=== PATIENT | male | born 1940 | race Caucasian/White ===

== ENCOUNTER → 2016-07-01 | Day surgery (SDC) | payer OTHER ==
[~2016-07-01] VITALS: Ht 180.3 cm; Wt 105.0 kg
[~2016-07-01] MED LIST: ADVIN25/60 INH; ALBU18002 INH; AMLO-110 PO; ASPCH81X PO; ATOR-54 PO; ATROPINE SULFATE 0.1 MG/ML 5ML SYR IV PRN; CALC-20 PO; CYCL0.052 OP; ENAL10TA88 PO; EpHEDrine SULFATE INJ 50 MG/ML AMP IV PRN; FENO134C2 PO; FENTANYL CITRATE INJ 50 MCG/1 ML 2 ML VIAL IV PRN; FINA5TAB PO; FLUT0.15 NAE; GLUC15002 PO; LEVO25TA PO; LIDOCAINE HCL 2% 2 ML VIAL (20MG/ML) ONE; MAGN400T6 PO; METO25TA56 PO; MISC1CAP58 PO; MULT-506 PO; OLAN-111 PO; ONDANSETRON INJ 2 MG/ML 2 ML VIAL IV PRN; POTA20TA16 PO; PROPOFOL IV EMULSION 10 MG/ML 20 ML VIAL IV ONE; TAMS0.4C38 PO; TORS20TA2 PO; WARF5TAB90 PO
[2016-07-01 07:00] VITALS: BP 130/84; PULSE 74; TEMP 36.5; O2SAT 94; Ht 180.3 cm; Wt 105.0 kg
[2016-07-01 07:35] VITALS: BP 144/83; PULSE 87; O2SAT 97
[2016-07-01 07:40] VITALS: BP 125/79; PULSE 73; O2SAT 95
[2016-07-01 07:45] VITALS: BP 125/75; PULSE 63; O2SAT 96
--- NOTE | 2016-07-01 07:56 | History & Physical Bridge Note ---
H&P Re-Evaluation Bridge Note: I have examined the patient, reviewed the History & Physical and in the interval since the performance of the History & Physical I have noted the following changes of clinical significance: No changes noted
--- NOTE | 2016-07-01 08:05 | Discharge Instructions ---
Discharge Instructions Procedure Procedure Date: July 01, 2016. Reason for Visit: W/Anes Persistent Afib Kopinski To Do. Discharge Discharge Date: July 01, 2016. Discharge Diagnosis: Atrial fibrillation s/p elective external cardioversion. Last Recorded Wt (Kilograms): 105 Anesthesia Post Anesthesia Instructions: If you have had General Anesthesia or IV Sedation: * Do not drive today. * Resume driving when surgeon permits. * Do not make important decisions or sign legal documents today. * Call surgeon for: 1. Temperature elevations greater than 101 degrees F. 2. Uncontrollable pain. 3. Excessive bleeding. 4. Persistent nausea and vomiting. 5. Medication intolerance (nausea, vomiting or rash). * For nausea and vomiting use only clear liquids such as: tea, soda, bouillon until nausea subsides, then gradually increase diet as tolerated. * If you have any concerns or questions, call your surgeon's office. If physician is unavailable and it is an emergency, call 911 or go to the nearest emergency room. Instructions Activity Recommendations: limitations as noted below Return to School/Work: with the following limitations Recommended Home Diet: resume previous diet Allergies: Coded Allergies: Acetaminophen (Unverified Allergy, Unknown, unknown, 07/01/16) Niacin (Unverified Allergy, Unknown, flushed feeling, 07/01/16) Oxycodone (Unverified Allergy, Unknown, unknown, 07/01/16) Propoxyphene (Unverified Allergy, Unknown, unknown, 07/01/16) Provider Instructions ACTIVITY RECOMMENDATIONS: Resume activities as tolerated with no limitations unless specified. _x_ No lifting over _10_ pounds for 24 hours. _x_ Do not engage in vigorous exercise, sexual activity, or sports for 24 hours. _x_ Do not drive or operate any motorized equipment for 24 hours. _x_ You may return to work/school tomorrow. Follow Up Follow-up with: Dr. Quinones as scheduled. Vimal Gomez Recommendations: Call your doctor if: * Temperature above 101 degrees * Pain not relieved by pain medicine ordered * There is increased drainage or redness from any incision * You have any unanswered questions or concerns. Your Doctors Instructions noted above were prepared by provider Dylan Quinones. Patient Signature Section: Patient Instructions Signature Page Cristhian May Patient (or Guardian) Signature/Date: I have read and understand the instructions given to me by my caregivers. Caregiver/RN/Doctor Signature/Date: The above-named patient and/or guardian has received patient instructions on this date. + Original Patient Signature Page (only) stays with chart. Please make copy for patient.
--- NOTE | 2016-07-01 08:46 | Anesthesiology Progress Note ---
Anesthesia Post Op Note Date & Time July 01, 2016 at 08:46 Vital Signs Pain Intensity: 0 Vital Signs Past 12 Hours Date Time Temp Pulse Resp B/P Pulse Ox O2 Delivery O2 Flow Rate FiO2 07/01/16 08:30 60 18 131/88 93 Room Air 07/01/16 08:15 60 18 123/78 93 Room Air 07/01/16 08:05 66 18 125/72 94 Nasal Cannula 2 07/01/16 07:55 68 18 120/67 93 Nasal Cannula 2 07/01/16 07:45 63 18 125/75 96 Nasal Cannula 2 07/01/16 07:45 73 18 121/79 95 Nasal Cannula 2 07/01/16 07:40 73 18 125/79 95 Nasal Cannula 4 07/01/16 07:39 07/01/16 07:35 87 18 144/83 97 Nasal Cannula 4 07/01/16 07:00 36.5 74 18 130/84 94 Room Air Notes Mental Status: alert / awake / arousable, participated in evaluation Pt Amnestic to Procedure: Yes Nausea / Vomiting: adequately controlled Pain: adequately controlled Airway Patency, RR, SpO2: stable & adequate BP & HR: stable & adequate Hydration State: stable & adequate Anesthetic Complications: no major complications apparent
--- NOTE | 2016-07-01 08:59 | CARDIOVERSION ---
DATE OF OPERATION: 07/01/2016 CARDIOVERSION REPORT DATE OF PROCEDURE: 07/01/2016. PROCEDURE: External direct current cardioversion. INDICATION: Paroxysmal atrial fibrillation. PROCEDURE: The patient was brought to the [facility] in a fasting state. Conscious sedation was provided by the anesthesia service. Please see their report for details. The defibrillator pads were placed in the anterior and posterior position. The defibrillator was synced to the QRS complex. When adequate sedation was achieved, the defibrillator was charged to 200 joules. A single 200 joule biphasic shock was delivered. The patient was successfully converted from atrial fibrillation to sinus rhythm with a first degree AV block. No complications. The patient tolerated the procedure well. CONCLUSION: Successful external direct current cardioversion from atrial fibrillation to sinus rhythm with 200 joule biphasic shock. No complications. I attest to the content of the Intraoperative Record and any orders documented therein. Any exceptio ns are noted below.
[2016-07-01 09:45] VITALS: BP 139/58; PULSE 72; O2SAT 96
== END | disposition home or self-care (01) ==
LOC: C.CATH 06:16
PROVIDERS: ATTEND Internal Medicine Cardiovascular Disease
DX: I48.0 Paroxysmal atrial fibrillation (principal); I12.9 Hypertensive chronic kidney disease with stage 1 through stage 4 chronic kidney disease, or unspecified chronic kidney disease; N18.3 Chronic kidney disease, stage 3 (moderate); I50.9 Heart failure, unspecified; J44.9 Chronic obstructive pulmonary disease, unspecified; J45.30 Mild persistent asthma, uncomplicated; F32.9 Major depressive disorder, single episode, unspecified; E03.9 Hypothyroidism, unspecified; E78.5 Hyperlipidemia, unspecified; Z87.891 Personal history of nicotine dependence; Z79.899 Other long term (current) drug therapy; Z96.641 Presence of right artificial hip joint; Z90.89 Acquired absence of other organs; Z98.890 Other specified postprocedural states; Z68.32 Body mass index [BMI] 32.0-32.9, adult; Z85.46 Personal history of malignant neoplasm of prostate

== ENCOUNTER 2022-08-19 06:18 | Observation (INO) ==
--- NOTE | 2022-08-03 09:35 | PAT Medication Instructions ---
Medication Instructions Date of Service August 03, 2022 Home Medications albuterol sulfate 0.63 mg/3 mL solution for nebulization 0.63 mg inhalation BID albuterol sulfate 90 mcg/actuation aerosol inhaler 2 puff inhalation BID apixaban 2.5 mg tablet (Eliquis) 2.5 mg PO BID aspirin 81 mg capsule 81 mg PO QAM atorvastatin 20 mg tablet (Lipitor) 20 mg PO HS calcium carbonate 600 mg-vitamin D3 10 mcg (400 unit) tablet (Calcium 600 + D(3)) 1 tab PO QAM cyclosporine 0.05 % eye drops in a dropperette (Restasis) 1 drp ophthalmic (eye) Q12H PRN Dry Eye(S) diltiazem HCl 180 mg capsule,extended release 24 hr 180 mg PO QAM escitalopram oxalate 20 mg tablet (Lexapro) 20 mg PO QAM fluticasone 250 mcg-salmeterol 50 mcg/dose blistr powdr for inhalation (Wixela Inhub) 1 inh inhalation BID guaifenesin 600 mg tablet, extended release 12 hr (Mucinex) 600 mg PO BID levothyroxine 75 mcg tablet 75 mcg PO QAM lutein 20 mg tablet 20 mg PO HS magnesium 200 mg tablet 400 mg PO HS metoprolol tartrate 25 mg tablet 25 mg PO BID mirtazapine 30 mg tablet (Remeron) 30 mg PO HS multivitamin 1 tab PO QAM olanzapine 5 mg tablet (Zyprexa) 5 mg PO HS potassium chloride 10 mEq capsule,extended release 10 meq PO QAM ropinirole 1 mg tablet 1 mg PO HS spironolactone 25 mg tablet 12.5 mg PO UD tamsulosin 0.4 mg capsule 0.4 mg PO QAM torsemide 40 mg tablet 40 mg PO QAM ASK your prescriber and surgeon apixaban 2.5 mg tablet (Eliquis) 2.5 mg PO BID (in order to get spinal anesthesia- will need to hold Eliquis/apixaban at least 72 hours prior to surgery) mirtazapine 30 mg tablet (Remeron) 30 mg PO HS olanzapine 5 mg tablet (Zyprexa) 5 mg PO HS STOP taking 2 weeks before surgery lutein 20 mg tablet 20 mg PO HS DO NOT take the morning of surgery calcium carbonate 600 mg-vitamin D3 10 mcg (400 unit) tablet (Calcium 600 + D(3)) 1 tab PO QAM guaifenesin 600 mg tablet, extended release 12 hr (Mucinex) 600 mg PO BID multivitamin 1 tab PO QAM potassium chloride 10 mEq capsule,extended release 10 meq PO QAM spironolactone 25 mg tablet 12.5 mg PO UD torsemide 40 mg tablet 40 mg PO QAM Take morning of surgery With a small sip of water, OTHERWISE NOTHING TO EAT OR DRINK AFTER MIDNIGHT: albuterol sulfate 0.63 mg/3 mL solution for nebulization 0.63 mg inhalation BID albuterol sulfate 90 mcg/actuation aerosol inhaler 2 puff inhalation BID aspirin 81 mg capsule 81 mg PO QAM (unless surgeon directed otherwise) cyclosporine 0.05 % eye drops in a dropperette (Restasis) 1 drp ophthalmic (eye) Q12H PRN Dry Eye(S) (if needed) diltiazem HCl 180 mg capsule,extended release 24 hr 180 mg PO QAM escitalopram oxalate 20 mg tablet (Lexapro) 20 mg PO QAM fluticasone 250 mcg-salmeterol 50 mcg/dose blistr powdr for inhalation (Wixela Inhub) 1 inh inhalation BID levothyroxine 75 mcg tablet 75 mcg PO QAM metoprolol tartrate 25 mg tablet 25 mg PO BID tamsulosin 0.4 mg capsule 0.4 mg PO QAM Take evening before surgery albuterol sulfate 0.63 mg/3 mL solution for nebulization 0.63 mg inhalation BID albuterol sulfate 90 mcg/actuation aerosol inhaler 2 puff inhalation BID atorvastatin 20 mg tablet (Lipitor) 20 mg PO HS cyclosporine 0.05 % eye drops in a dropperette (Restasis) 1 drp ophthalmic (eye) Q12H PRN Dry Eye(S) (if needed) fluticasone 250 mcg-salmeterol 50 mcg/dose blistr powdr for inhalation (Wixela Inhub) 1 inh inhalation BID guaifenesin 600 mg tablet, extended release 12 hr (Mucinex) 600 mg PO BID magnesium 200 mg tablet 400 mg PO HS metoprolol tartrate 25 mg tablet 25 mg PO BID ropinirole 1 mg tablet 1 mg PO HS Other Notes If you have any questions please call us at [phone] or [phone] or [phone] or [phone]
--- NOTE | 2022-08-05 10:53 | Anesthesiology Consultation ---
Date of Service August 05, 2022 Assessment & Plan (1) Encounter for pre-operative examination: Chart Review Chart Review: Pending: Refer to Additional Notes / Consult section (pending 08/06/22 ECHO, 08/13/22 stress test, cardio response re: Eliquis instructions, response from PCP re: pulmonary status ) and Patient seen in Pre Admission Testing - Awaiting ECHO (08/06/22) and stress test 08/13/22 ([facility]) - Awaiting cardio phone note response inquiring if Eliquis can be held three days prior to surgery - Please send optimization form to PCP re: pulmonary status - need response - Pt is NOT an OPJ candidate due to age and comorbidities Per PAT appt on 08/05/22, patient denies any recent travel or large group activities. Pt is vaccinated for Covid. Will leave to surgeon's discretion if preop Covid testing needed. Educated on importance of using Covid precautions one week prior to surgery Pt seen by cardiology 06/09/22= Patient seen for cardiology follow-up evaluation. And need for new hipfollowing with Ortho. Chest tightness only when having anxiety attack. Stable SALGADO. Edema fairly well controlled as of late. Diastolic congestive heart failurecompensated. Chronic atrial fibrillation with controlled rates via recent device interrogation. Prescribed reduced dose of Eliquis due to age and renal dysfunction. Currently without significant bleeding issues or concerns. 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 Aortic stenosismild. Significant pulmonary disease. OSAon BiPAP with supplemental oxygen. Continue current cardiac medications as prescribed. Refer for resting echocardiogram to follow degree of aortic stenosis and for preoperative evaluation. Preoperative Lexiscan nuclear stress test. Continue medical therapy. Patient is at least moderate risk of adverse outcome for noncardiac surgery. If testing is acceptable would advise the following: Continue metoprolol, diltiazem, and aspirin without interruption. Hold furosemide and spironolactone morning of the procedure, resuming postoperatively as hemodynamics permit. Suggest hold x2 days for Eliquis with an estimated cr eatinine clearance of 55.5 mL/min. Standard pacemaker precautions. History Surgery Operation Date: 08/19/22 12:40 Proposed Procedures p Left Total Hip Arthroplasty - Cristhian Witt MD Height/Weight Height: 5 ft 11 in Weight: 98.2 kg Allergies Allergy/AdvReac Type Severity Reaction Status Date / Time oxycodone Allergy Unknown Flushing Verified 08/03/22 08:33 propoxyphene Allergy Unknown Flushing Verified 08/03/22 08:33 niacin AdvReac Unknown flushed Verified 08/03/17 11:27 feeling Medications Home Medications Medication Instructions Recorded Confirmed Last Taken albuterol sulfate 0.63 mg/3 mL 0.63 mg inhalation BID 08/03/22 08/03/22 Unknown solution for nebulization albuterol sulfate 90 mcg/actuation 2 puff inhalation BID 08/03/22 08/03/22 Unknown aerosol inhaler apixaban 2.5 mg tablet (Eliquis) 2.5 mg PO BID 08/03/22 08/03/22 Unknown aspirin 81 mg capsule 81 mg PO QAM 08/03/22 08/03/22 Unknown atorvastatin 20 mg tablet (Lipitor) 20 mg PO HS 08/03/22 08/03/22 Unknown calcium carbonate 600 mg-vitamin 1 tab PO QAM 08/03/22 08/03/22 Unknown D3 10 mcg (400 unit) tablet (Calcium 600 + D(3)) cyclosporine 0.05 % eye drops in a 1 drp ophthalmic (eye) Q12H PRN 08/03/22 08/03/22 Unknown dropperette (Restasis) Dry Eye(S) diltiazem HCl 180 mg 180 mg PO QAM 08/03/22 08/03/22 Unknown capsule,extended release 24 hr escitalopram oxalate 20 mg tablet 20 mg PO QAM 08/03/22 08/03/22 Unknown (Lexapro) fluticasone 250 mcg-salmeterol 50 1 inh inhalation BID 08/03/22 08/03/22 Unknown mcg/dose blistr powdr for inhalation (Wixela Inhub) guaifenesin 600 mg tablet, 600 mg PO BID 08/03/22 08/03/22 Unknown extended release 12 hr (Mucinex) levothyroxine 75 mcg tablet 75 mcg PO QAM 08/03/22 08/03/22 Unknown lutein 20 mg tablet 20 mg PO HS 08/03/22 08/03/22 Unknown magnesium 200 mg tablet 400 mg PO HS 08/03/22 08/03/22 Unknown metoprolol tartrate 25 mg tablet 25 mg PO BID 08/03/22 08/03/22 Unknown mirtazapine 30 mg tablet (Remeron) 30 mg PO HS 08/03/22 08/03/22 Unknown multivitamin 1 tab PO QAM 08/03/22 08/03/22 Unknown olanzapine 5 mg tablet (Zyprexa) 5 mg PO HS 08/03/22 08/03/22 Unknown potassium chloride 10 mEq 10 meq PO QAM 08/03/22 08/03/22 Unknown capsule,extended release ropinirole 1 mg tablet 1 mg PO HS 08/03/22 08/03/22 Unknown spironolactone 25 mg tablet 12.5 mg PO UD 08/03/22 08/03/22 Unknown tamsulosin 0.4 mg capsule 0.4 mg PO QAM 08/03/22 08/03/22 Unknown torsemide 40 mg tablet 40 mg PO QAM 08/03/22 08/03/22 Unknown Past Medical History Medical History A-fib follows w/ [facility] cardio, [place] [facility] on Eliquis Anxiety and depression Aortic stenosis Mild per 2021 ECHO Asthmatic bronchitis Breathing stable - chronic (hx of smoker) Chronic kidney disease (CKD), stage III (moderate) Diastolic heart failure Compensated per cardio records HTN (hypertension) Hx of pyoderma gangrenosum BLE Hyperlipidemia Hypothyroidism On anticoagulant therapy eliquis Pacemaker medtronic, last checked 05/13/22, remotely Prostate cancer Around 2013- s/p brachytherapy - Lupron q 3 months Pulmonary disease restrictive lung disease, hypoxic respiratory failure, hypercapnic respiratory failure , bronchiectasis, 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, 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 per records Restless leg syndrome Sleep apnea bipap; 3 lpm hs Tachy-noni syndrome s/p pacemaker placement 2018 Exercise / Class Metabolic Activity III < 4 Walking/Shop/Light housework (inactive due to hip pain- ambulates around house with walker- usually in wheelchair in public ; prior to hip issues- mild SALGADO with flat surface ambulation - no chest pain ) Past Family History Family History Other No family history of adverse response to anesthesia Past Surgical History Surgical History History of surgery Rectal fissure repair Hx of colonoscopy Hx of tonsillectomy Hx of total hip arthroplasty RIGHT S/P placement of cardiac pacemaker Past Anesthesia History No Hx of Anesthesia Complications and No Family Hx of Anesthesia Complications History of PONV No Hx of PONV and No Hx of Motion Sickness Social History Smoking Status: Former smoker tobacco type: cigarettes Do You Dip or Chew Tobacco: No Smoking End Date: QUIT 1978 Hx Alcohol Use: No Hx Substance Use: No substance use type: does not use Review of Systems Patient denies chest pain, shortness of breath at rest, reflux, cough, wheezing, palpitations. No hx of seizures, stroke, CT. No hx of blood clots or blood transfusions Physical Exam Vital Signs VITALS BP 109/70 P 78 TEMP 98.7 SP02 90% on RA (monitor at home -usually between 90-94%- no oxygen needed during the day per patient) RESP 16 Constitutional no acute distress ENMT Mouth: no TMJ clicking Thyromental Distance: > or= 3.5 Finger Breadths (3.5) Mallampati Class: III Full dentures on top ; partial dentures on the bottom Neck + limited neck extension Respiratory normal respiratory effort; no respiratory distress Auscultation: + diminished lung sounds (throughout); no wheezes Trace course breath sounds throughout- otherwise CTA Cardiovascular Rate/Rhythm: regular rate and regular rhythm Heart Sounds: no murmur Vessels: no carotid bruit Heart sounds diminished throughout Musculoskeletal Spine: no pain with cervical ROM Extremities: extremities normal to inspection Psychiatric Orientation: alert Lab Results Anesthesia Preop Results Results Anesthesia Widget: WBC 9.90 K/ul (4.8-10.8) 08/05/22 Hgb 13.8 g/dl (14.0-18.0) L 08/05/22 Hct 41.9 % (42.0-52.0) L 08/05/22 Plt 187 K/uL (130-400) 08/05/22 Na 137 mmol/L (136-145) 08/05/22 K 4.0 mmol/L (3.5-5.1) 08/05/22 Cl 97 mmol/L (98-107) L 08/05/22 CO2 36 mmol/L (21-32) H 08/05/22 BUN 15 mg/dl (6-23) 08/05/22 Creat 1.10 mg/dl (0.6-1.4) 08/05/22 Glucose Level 90 mg/dl (70-99(Fasting)) 08/05/22 PT 11.7 Seconds (9.0-12.0) 08/05/22 PTT 28.7 Seconds (21.0-31.0) 08/05/22 INR 1.1 (0.9-1.1) 08/05/22 HA1c 6.1 % (4.5-5.6) H 08/05/22 Blood Type A Positive 08/05/22 Antibody Screen NEGATIVE 08/05/22 Testing Electrocardiogram Date: 08/05/22 Atrial fibrillation with frequent ventricular paced complexes at 65bpm RBBB When compared to EKG from August 03, 2017- electronic ventricular pacemaker is now present, vent rate has decreased by 50bpm per cardio Chest X-Ray Date: 08/05/22 FINDINGS: PA and lateral chest radiographs are compared to study dated 08/04/2018. A single lead cardiac pacemaker is unchanged in position. The heart is enlarged and noting atherosclerotic calcification of the thoracic aorta. The pulmonary vasculature is noncongested. Subpleural reticulation and chronic interstitial thickening is unchanged. There is chronic elevation of the right hemidiaphragm. Bibasilar interstitial changes/opacities are similar to previous and likely represent changes of chronic lung disease. No superimposed airspace consolidation or pleural effusion is identified. There is no pneumothorax. The s keletal structures are osteopenic. The bony thorax appears intact. Degenerative change and hyperkyphosis is noted in the thoracic spine. IMPRESSION: 1. Cardiomegaly and cardiac pacemaker without mammographic evidence of congestive failure. 2. Findings of chronic lung disease are similar to previous. No acute cardiopulmonary abnormality is seen. Other Testing Pacemaker check 05/12/22= Medtronic device. Implanted 08/03/17. Battery has 10.33 years left. Three episodes consistent or suggestive of ventricular tachycardia. Mode: VVIR. Total VS 71.4%. Total PAYMENT MANAGER 26.8%. COVID-19 Risk Screen Screening Information COVID-19 Screen Date: 08/05/22 Exposure 21 Days Family/Household +COVID Last 21 Days: No Exposure 10 Days Any COVID Exposure Last 10 Days: No Symptoms Last 10 Days Experienced COVID Sx Last 10 Days: No + COVID 0-90 Days COVID + in Last 0-90 Days: No Risk Plan COVID Risk Plan: No Risk Identified Patient Education COVID Preop Screening Education Complete: Yes
[~2022-08-19 06:18] MED LIST changes: +ACETAMINOPHEN 500 MG TAB PO SCH; -ADVIN25/60 INH; -ALBU18002 INH; -AMLO-110 PO; -ASPCH81X PO; -ATOR-54 PO; -ATROPINE SULFATE 0.1 MG/ML 5ML SYR IV PRN; +BUPIVACAINE LIPOSOME/PF 266 MG, BUPIVACAINE/EPINEPHRINE 50 ML, SODIUM CHLORIDE 0.9% PF ... INFIL SCH; -CALC-20 PO; -CYCL0.052 OP; +CeleBREX 200 MG CAP PO SCH; -ENAL10TA88 PO; -EpHEDrine SULFATE INJ 50 MG/ML AMP IV PRN; +FAMOTIDINE 20 MG TAB PO SCH; -FENO134C2 PO; -FENTANYL CITRATE INJ 50 MCG/1 ML 2 ML VIAL IV PRN; -FINA5TAB PO; -FLUT0.15 NAE; -GLUC15002 PO; -LEVO25TA PO; -LIDOCAINE HCL 2% 2 ML VIAL (20MG/ML) ONE; +LR 500ML BOLUS, THEN 15ML/HR IV SCH; +LR 60ML/HR IV SCH; -MAGN400T6 PO; -METO25TA56 PO; +METOCLOPRAMIDE HCL 10 MG TABLET PO SCH; -MISC1CAP58 PO; -MULT-506 PO; -OLAN-111 PO; -ONDANSETRON INJ 2 MG/ML 2 ML VIAL IV PRN; -POTA20TA16 PO; -PROPOFOL IV EMULSION 10 MG/ML 20 ML VIAL IV ONE; -TAMS0.4C38 PO; -TORS20TA2 PO; +TRANEXAMIC ACID 1,000 MG **IV Pre-op IV SCH; -WARF5TAB90 PO; +ceFAZolin 2000MG 2,000 MG/15 ML SYR IV SCH; +dexAMETHasone**PF** 10 MG/ML VIAL IV SCH
[2022-08-19] MEDS ORDERED: BUPIVACAINE 0.5 % 5 MG/1 ML PF 10ML VIAL ONE (06:30)
[2022-08-19] MEDS ORDERED: PROPOFOL IV EMULSION 10 MG/ML 20 ML VIAL IV ONE (06:39)
[2022-08-19] MEDS ORDERED: MIDAZOLAM HCL 1 MG/ML 2ML VIAL ONE (06:39)
[2022-08-19] MEDS ORDERED: LIDOCAINE 2% 2 ML VIAL/AMP(20MG/ML) INFIL ONE (06:39)
[2022-08-19] MEDS ORDERED: fentaNYL citrate PF 100 MCG/2 ML VIAL ONE (06:39)
[2022-08-19] MEDS ORDERED: ONDANSETRON INJ 2 MG/ML 2 ML VIAL ONE (06:40)
--- NOTE | 2022-08-19 06:55 | History & Physical Bridge Note ---
Date of Service August 19, 2022 History & Physical Bridge Note I have examined the patient, reviewed the History & Physical and in the interval since the performance of the History & Physical I have noted the following changes of clinical significance: no changes noted
[2022-08-19] MEDS ORDERED: BUPIVACAINE/EPINEPHRINE 0.5% MPF 1:200,000 30 ML VIAL ONE (08:53)
[2022-08-19] MEDS ORDERED: KETOROLAC 30 MG/ML VIAL ONE (09:55)
[2022-08-19] MEDS ORDERED: ONDANSETRON INJ 2 MG/ML 2 ML VIAL IV PRN ×2 (10:01→13:34)
[2022-08-19] MEDS ORDERED: fentaNYL citrate PF 100 MCG/2 ML VIAL IV PRN (10:01)
[2022-08-19] MEDS ORDERED: ATROPINE SULFATE 0.1 MG/ML 10ML SYR IV PRN (10:01)
[2022-08-19] MEDS ORDERED: ePHEDrine sulfate 50 MG/ML AMP IV PRN (10:01)
[2022-08-19] MEDS ORDERED: GELATIN SPONGE SZ 100 ONE (10:05)
[2022-08-19] MEDS ORDERED: THROMBIN FOR SOLN 20000 UNIT KIT ONE (10:05)
--- NOTE | 2022-08-19 11:08 | Operative Report ---
PG Post Operative Report Pre & Post Diagnosis Operation Date: 08/19/22 08:40 Pre-Op Diagnosis: Left Hip Degenerative Joint Disease Post-Op Diagnosis: Left Hip Degenerative Joint Disease I identified the patient and participated in the time-out.: Yes Procedure Operation Date: 08/19/22 08:40 Actual Procedures p Left Total Hip Arthroplasty(Left) - Cristhian Witt MD Surgeon Cristhian Witt MD Bush Regenerator John Cota PA-C Estimated Blood Loss 250 Findings Consistent with Post-Op Diagnosis Operative findings were advanced left hip DJD. He had what looked like necrosis of his femoral head. He had chronic dark pigmentation of the bone and synovium. Moderate-sized hip joint effusion. Very stiff hip preoperatively. Specimens Left femoral head sent for pathology Anesthesia Type Spinal MAC Complications none Disposition Accompanied Patient To Recovery: No Indications Patient is an 81-year-old gentleman who has a several year history of increasing left hip pain and discomfort is become markedly debilitating. He failed all conservative measures. X-rays showed severe hip arthritis. He was medically optimized and elected to proceed with total hip arthroplasty. He does have multiple medical comorbidities and the risks were explained to him and he elected to proceed. Description of Procedure Operative implants consist of: 1 Biomet G7 size 54 mm acetabular shell. 2. [place] hole eliminator. 3. 6.5 cancellous acetabular screws 1 at 35 mm in length and 1 of 30 mm length. 4. Highly cross-linked polyethylene liner with a 54 mm outer diameter, 40 mm inner diameter with a cook placed inferior and posterior. 5. DePuy [place] size 12 KLA femoral stem. 6. +5/40 mm ceramic articular ball. The patient was taken to the operating, identified, and placed on the operating table supine position. All contractors were appropriately padded. IV antibiotics tried by anesthesia team. A spinal anesthetic had been implemented holding area. The patient was then placed in the right lateral decubitus position. An axillary roll was placed. [place] hip positioner was used for positioning. The left hip and leg were then prepped and draped in usual sterile fashion. A posterolateral approach to the left hip was then performed through a curvilinear incision centered over the greater trochanter. Sharp dissection was carried through subcutaneous tissue down to level the IT band gluteal fascia the IT band gluteal fascia was incised longitudinally in line with skin incision. The underlying greater bursa was excised. The piriformis and external rotators along with the posterior hip joint capsule were then released from the posterior aspect the hip as a single layer. Great care was taken throughout the procedure protect the sciatic nerve at all times. The hip was internally rotated and dislocated. A femoral neck osteotomy cut was made with a Final Cut about 12 mm above the lesser trochanter. Femoral head was removed and sent for pathology. The femur was retracted anteriorly. I did have to do some releases of the capsule in order to retract this anteriorly as his hip was very stiff. We did run into 1 bleeder in the inferior aspect of the acetabulum which took some time to cauterized. I did place him a gel foam with thrombin down there to assist in hemostasis. The acetabular labrum was excised. The pulmonary fat was excised. The acetabulum was then reamed beginning with size 43 and progressing up to a 53. I reamed a little bit with a 54 reamer and then placed a 54 mm cup in about 20 degrees of anteversion and 40 degrees lateral opening. It fixed with two 6.5 cancellous acetabular screws. Trial liner was placed. Attention drawn the femur. The proximal femur was entered with a [employer] cutter followed by canal finder. I then broached beginning with size 8 and progressed up to 12. Got excellent fit at a 12. I then trialed the hip. The +5 articular ball seem to provide appropriate stability and soft tissue tension and equal leg lengths. In order to maximize his stability we elect to place a 40 head with a cook placed inferior and posterior. I elect to place these implants. Nupathe all trial implants were removed. Eliminator was placed. Highly cross-linked polyethylene liner with a cook placed inferior and posterior was placed. A DePuy KLA size 12 femoral stem was impacted in position. A +5/40 mm ceramic articular ball was placed. Hip was located once again found to be stable. Attention drawn toward closing. The wound was irrigated coconuts with pulsatile lavage solution. I did inject locally with 60 cc of half percent worker with epinephrine. The posterior hip joint capsule was then repaired to the posterior aspect of the trochanter through drill holes in the trochanter with #2 Tycron suture. The IT band gluteal fascia then closed in 1 PDS suture running fashion for subcutaneous tissue then closed in 2 layers the deep layer #1 Vicryl suture subcutaneous tissues with 2-0 Dexon suture in a buried interrupted fashion. Skin was closed skin cynthia. Leg was then cleaned and dried and sterile dressed with Xeroform, 4 x 4's, ABD pad, foam tape was applied. Patient was then transferred to the recovery room in stable condition. The patient tolerated procedure well and there were no complications. John Cota, my physician regulatory assistant, was present for the entire procedure. His assistance was essential and required for appropriate patient positioning, prepping and draping, surgical exposure, performing the technical details of the operation, placement the implants, closure of the wound, and placement of the sterile bandage. I attest to the content of the Intraoperative Record and any orders documented therein. Any exceptions are noted below.
--- NOTE | 2022-08-19 11:27 | XRay Report ---
SINGLE VIEW PELVIS; SINGLE VIEW LEFT HIP CLINICAL HISTORY: Postoperative examination. FINDINGS: An AP portable view of the hips and lower pelvis with a crosstable lateral portable view of the left hip are compared to study dated 07/31/2022. A bipolar left hip arthroplasty is in near-anato yolanda alignment. At least 2 cortical lag screw transfix the acetabular cup. No acute fracture is identi fied. There are expected postoperative changes overlying the left hip including skin clips, subcutane ous gas, and soft tissue swelling. A right hip arthroplasty is unchanged in position. Brachytherapy i mplants are seen in the pelvis. There is atherosclerotic calcification of the femoral arteries. IMPRESSION: Expected postoperative findings status post left hip arthroplasty. No acute fracture is s een. ACT 112: Negative or not required by law. Electronically signed by: Paramjit Hitchcock M.D. 08/19/2022 11:24 AM
--- NOTE | 2022-08-19 11:41 | Anesthesiology Progress Note ---
Date of Service August 19, 2022 Anesthesia Post Procedure Vital Signs Vital Signs: Temp Pulse Pulse Resp BP Pulse Ox O2 Del Method 08/19/22 11:35 36.5 C 79 19 95/57 L 95 Nasal Cannula 08/19/22 11:25 81 20 104/70 92 Nasal Cannula 08/19/22 11:15 80 19 107/65 93 Nasal Cannula 08/19/22 11:05 80 24 110/63 99 Oxymask 08/19/22 10:58 36.5 C 84 19 81/51 L 97 Oxymask 08/19/22 07:02 Nasal Cannula 08/19/22 07:02 36.5 C 80 20 151/94 H 91 Nasal Cannula O2 Flow Rate 08/19/22 11:35 3 08/19/22 11:25 4 08/19/22 11:15 4 08/19/22 11:05 12 08/19/22 10:58 12 08/19/22 07:02 2 08/19/22 07:02 2 Transfer of Care Handoff Completed per policy Notes Mental Status: alert / awake / arousable Patient Amnestic to Procedure: Yes Nausea / Vomiting: adequately controlled Pain: adequately controlled Airway Patency, RR, SpO2: stable & adequate BP & HR: stable & adequate Hydration State: stable & adequate Neuraxial Anesthesia: was administered and sensory block is resolving Anesthetic Complications: no major complications apparent and Pt Satisfied with anesthetic care
[2022-08-19] MEDS ORDERED: traMADol HCL 50 MG TABLET PO PRN (13:34)
[2022-08-19] MEDS ORDERED: METOCLOPRAMIDE HCL INJ 5 MG/ML 2 ML VIAL IV PRN (13:34)
[2022-08-19] MEDS ORDERED: HYDROmorphone INJ 0.5 MG/0.5 ML SYR IV PRN (13:34)
[2022-08-19] MEDS ORDERED: bisacodyL 10 MG SUPP PR PRN (13:34)
[2022-08-19] MEDS ORDERED: NALOXONE HCL 0.4 MG/1 ML VIAL/CARP IV PRN (13:34)
[2022-08-19] MEDS ORDERED: ALUMINUM/MAGNESIUM SUSP 30 ML UDC PO PRN (13:34)
[2022-08-19] MEDS ORDERED: ARTIFICIAL TEARS OP PRN (13:51)
[2022-08-19] MEDS ORDERED: ACETAMINOPHEN 500 MG TAB PO SCH (14:00)
[2022-08-19] MEDS: KETOROLAC TROMETHAMINE 15 MG/ML VIAL IV SCH ×2 (15:10→20:12)
[2022-08-19] MEDS: SODIUM CHLORIDE 0.9% 1000ML 1,000 ML IV SCH (15:10)
[2022-08-19] MEDS: ACETAMINOPHEN 500 MG TAB PO SCH ×2 (15:12→20:15)
--- NOTE | 2022-08-19 16:45 | Cardiology Consultation ---
Date of Consultation August 19, 2022 Assessment & Plan (1) Acute on chronic heart failure with preserved ejection fraction (HFpEF): (2) Chronic atrial fibrillation: (3) Aortic stenosis, mild: Plan 81-year-old patient's status post hip replacement. No procedural complications reported. Currently hemodynamically stable. Will place torsemide and Aldactone on hold pending a.m. examination. Restart apixaban per discretion of the operating surgeon. Continue other cardiovascular medications including low-dose aspirin, diltiazem, and metoprolol tartrate as ordered. History of Present Illness Reason for Consultation: Postoperative cardiovascular care Requesting Physician: Dr. Witt Attending Physician: Cristhian Witt MD History of Present Illness 81-year-old male admitted for elective hip replacement. Cardiac consultation requested for routine postoperative care. 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 Preoperative Lexiscan nuclear stress test negative for inducible ischemia. Echocardiogram demonstrating preserved LV systolic function with mild aortic valve stenosis (stable). Patient seen and examined at the bedside. Somnolent post anesthesia. Arousable to verbal stimuli. Denies chest pain or shortness of breath. No discomfort currently. Offers no concerns/complaints. Allergies Allergy/AdvReac Type Severity Reaction Status Date / Time oxycodone Allergy Unknown Flushing Verified 08/03/22 08:33 propoxyphene Allergy Unknown Flushing Verified 08/03/22 08:33 niacin AdvReac Unknown flushed Verified 08/03/17 11:27 feeling Home Medications Medication Instructions Recorded Confirmed Type albuterol sulfate 0.63 mg/3 mL 0.63 mg inhalation BID 08/03/22 08/19/22 History solution for nebulization albuterol sulfate 90 mcg/actuation 2 puff inhalation BID 08/03/22 08/19/22 History aerosol inhaler apixaban 2.5 mg tablet (Eliquis) 2.5 mg PO BID 08/03/22 08/19/22 History aspirin 81 mg capsule 81 mg PO QAM 08/03/22 08/19/22 History atorvastatin 20 mg tablet (Lipitor) 20 mg PO HS 08/03/22 08/19/22 History calcium carbonate 600 mg-vitamin 1 tab PO QAM 08/03/22 08/19/22 History D3 10 mcg (400 unit) tablet (Calcium 600 + D(3)) cyclosporine 0.05 % eye drops in a 1 drp ophthalmic (eye) Q12H PRN 08/03/22 08/19/22 History dropperette (Restasis) Dry Eye(S) diltiazem HCl 180 mg 180 mg PO QAM 08/03/22 08/19/22 History capsule,extended release 24 hr escitalopram oxalate 20 mg tablet 20 mg PO QAM 08/03/22 08/19/22 History (Lexapro) fluticasone 250 mcg-salmeterol 50 1 inh inhalation BID 08/03/22 08/19/22 History mcg/dose blistr powdr for inhalation (Wixela Inhub) guaifenesin 600 mg tablet, 600 mg PO BID 08/03/22 08/19/22 History extended release 12 hr (Mucinex) levothyroxine 75 mcg tablet 75 mcg PO QAM 08/03/22 08/19/22 History lutein 20 mg tablet 20 mg PO HS 08/03/22 08/19/22 History magnesium 200 mg tablet 400 mg PO HS 08/03/22 08/19/22 History metoprolol tartrate 25 mg tablet 25 mg PO BID 08/03/22 08/19/22 History mirtazapine 30 mg tablet (Remeron) 30 mg PO HS 08/03/22 08/19/22 History multivitamin 1 tab PO QAM 08/03/22 08/19/22 History olanzapine 5 mg tablet (Zyprexa) 5 mg PO HS 08/03/22 08/03/22 History potassium chloride 10 mEq 10 meq PO QAM 08/03/22 08/19/22 History capsule,extended release ropinirole 1 mg tablet 1 mg PO HS 08/03/22 08/19/22 History spironolactone 25 mg tablet 12.5 mg PO UD 08/03/22 08/19/22 History tamsulosin 0.4 mg capsule 0.4 mg PO QAM 08/03/22 08/19/22 History torsemide 40 mg tablet 40 mg PO QAM 08/03/22 08/19/22 History acetaminophen 500 mg tablet 1,000 mg PO TID pain 30 days #180 08/17/22 08/19/22 Rx (Tylenol Extra Strength) tabs ondansetron 4 mg disintegrating 4 mg PO Q8 PRN nausea #20 tabs 08/17/22 08/19/22 Rx tablet sennosides 8.6 mg tablet (Senokot) 8.6 mg PO BID prevent constipation 08/17/22 08/19/22 Rx 14 days #28 tabs tramadol 50 mg tablet 50 - 100 mg PO Q6 PRN pain #40 tabs 08/17/22 08/19/22 Rx Patient History Medical History (Updated 08/19/22 @ 16:43 by Dylan Quinones DO) A-fib follows w/ [facility], [place] on Eliquis Anxiety and depression Aortic stenosis Mild per 2021 ECHO Asthmatic bronchitis Breathing stable - chronic (hx of smoker) Chronic kidney disease (CKD), stage III (moderate) Diastolic heart failure Compensated per cardio records HTN (hypertension) Hx of pyoderma gangrenosum BLE Hyperlipidemia Hypothyroidism On anticoagulant therapy eliquis Pacemaker medtronic, last checked 05/13/22, remotely Prostate cancer Around 2013- s/p brachytherapy - Lupron q 3 months Pulmonary disease restrictive lung disease, hypoxic respiratory failure, hypercapnic respiratory failure , bronchiectasis, 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, 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 per records Restless leg syndrome Sleep apnea bipap; 3 lpm hs Tachy-noni syndrome s/p pacemaker placement 2018 Surgical History (Updated 08/20/22 @ 07:02 by Cristhian Witt MD) History of surgery Rectal fissure repair Hx of colonoscopy Hx of tonsillectomy Hx of total hip arthroplasty RIGHT S/P placement of cardiac pacemaker Status post left hip replacement Family History Other No family history of adverse response to anesthesia Social History Smoking Status: Former smoker Smoking End Date: QUIT 1978; Second Hand Exposure: No; Do You Dip or Chew Tobacco: No; Tobacco Cessation Education Requested by Patient: No Hx Alcohol Use: No Hx Substance Use: No Preferred Language: Gabonese Communication Ability: Effective Radio Adjuster Required: No Beliefs That Will Affect Care: None Current Living Situation: Spouse Other Information That Helps Us Care for You: No Feels Safe at Home: Yes Safety Concerns: Feels Safe At This Time Assistive Devices: BiPap, Cane, Oxygen - Continuous and Walker Review of Systems Review of Systems: All systems reviewed & are unremarkable except as noted in Subjective Physical Exam Constitutional: well nourished; no acute distress Respiratory: normal respiratory effort; no respiratory distress and no labored breathing Auscultation: no rales, no rhonchi and no wheezes Cardiovascular: Rate/Rhythm: + irregularly irregular Heart Sounds: normal S1, normal S2 and + murmur (2/6 systolic ejection murmur heard best at the right second IC) Vessels: radial pulses present; no JVD and no carotid bruit Extremities: no edema Gastrointestinal (Abdomen): Inspection/Auscultation: abdomen normal to inspection and normal bowel sounds; abdomen not distended Percussion/Palpation: abdomen soft; abdomen nontender and no guarding Results & Data Vital Signs (Past 12 Hours) Vital Signs Temp Pulse Pulse Pulse Resp BP Pulse Ox 08/19/22 15:18 36.6 C 87 14 122/80 95 08/19/22 13:34 08/19/22 14:33 36.6 C 86 18 132/76 95 08/19/22 14:01 37.1 C 86 18 114/78 96 08/19/22 13:30 36.6 C 88 18 124/78 96 08/19/22 13:15 87 19 116/76 95 08/19/22 13:05 81 24 117/91 96 08/19/22 12:55 36.5 C 77 23 112/73 96 08/19/22 12:45 73 17 116/72 99 08/19/22 12:35 78 18 110/71 98 08/19/22 12:25 73 18 113/63 99 08/19/22 12:20 87 21 114/75 98 08/19/22 12:15 81 21 102/65 94 08/19/22 12:10 78 17 108/60 94 08/19/22 12:08 73 17 91 08/19/22 12:05 77 17 92/59 L 95 08/19/22 11:55 75 18 103/62 94 08/19/22 10:55 75 18 103/62 94 08/19/22 11:45 75 20 98/60 L 95 08/19/22 11:35 36.5 C 79 19 95/57 L 95 08/19/22 11:25 81 20 104/70 92 08/19/22 11:15 80 19 107/65 93 08/19/22 11:05 80 24 110/63 99 08/19/22 10:58 36.5 C 84 19 81/51 L 97 08/19/22 07:02 08/19/22 07:02 36.5 C 80 20 151/94 H 91 O2 Del Method O2 Flow Rate FiO2 08/19/22 15:18 Nasal Cannula 3 08/19/22 13:34 Nasal Cannula 3 08/19/22 14:33 Nasal Cannula 3 08/19/22 14:01 Nasal Cannula 3 08/19/22 13:30 Nasal Cannula 3 08/19/22 13:15 Nasal Cannula 3 08/19/22 13:05 Nasal Cannula 3 08/19/22 12:55 Nasal Cannula 3 08/19/22 12:45 BiPAP 35 08/19/22 12:35 BiPAP 35 08/19/22 12:25 BiPAP 35 08/19/22 12:20 BiPAP 35 08/19/22 12:15 BiPAP 35 08/19/22 12:10 BiPAP 35 08/19/22 12:08 35 08/19/22 12:05 Nasal Cannula 3 08/19/22 11:55 Nasal Cannula 3 08/19/22 10:55 Nasal Cannula 3 08/19/22 11:45 Nasal Cannula 3 08/19/22 11:35 Nasal Cannula 3 08/19/22 11:25 Nasal Cannula 4 08/19/22 11:15 Nasal Cannula 4 08/19/22 11:05 Oxymask 12 08/19/22 10:58 Oxymask 12 08/19/22 07:02 Nasal Cannula 2 08/19/22 07:02 Nasal Cannula 2 Laboratory Results Intake and Output 08/19/22 08/19/22 08/19/22 06:59 14:59 22:59 Intake Total 1300 / 1300 Output Total 250 / 250 Balance 1050 / 1050 Intake: IV 100 / 100 Lactated Ringer's 1,000 ml @ 15 0 / 0 mls/hr IV .Q24H IRMA Rx#: [id number] Tranexamic Acid / 0.7% NaCl 1, 100 / 100 000 mg In 100 ml @ 600 mls/hr IV TODAY@0600 IRMA Rx#:[id number] IV Perioperative 1200 / 1200 Output: Estimated Blood Loss 250 / 250 Other: Weight 99.053 kg Weight Measurement Method Standing Scale Patient Weight 08/20/22 06:59 Weight 99.053 kg
[2022-08-19] MEDS ORDERED: TRANEXAMIC ACID / 0.7% NACL 1,000 MG/100 ML BAG IV SCH (17:00)
[2022-08-19] MEDS: SPIRONOLACTONE 12.5 MG TAB PO SCH (18:03)
[2022-08-19] MEDS: ASCORBIC ACID 500 MG TAB PO SCH (18:04)
[2022-08-19] MEDS: ceFAZolin 2000MG 2,000 MG/15 ML SYR IV SCH (18:47)
[2022-08-19] MEDS: ALBUTEROL HFA 8 GM INHALER INH SCH (19:21)
[2022-08-19] MEDS: ALBUTEROL 0.083% NEBU SOLN 3 ML VIAL INH SCH (19:25)
[2022-08-19] MEDS: rOPINIRole HCL 1 MG TABLET PO SCH (20:13)
[2022-08-19] MEDS: DOCUSATE SODIUM 100 MG CAP PO SCH (20:14)
[2022-08-19] MEDS: SENNA 8.6 MG TAB PO SCH (20:14)
[2022-08-19] MEDS: METOPROLOL TARTRATE 25 MG TAB PO SCH (20:15)
[2022-08-19] MEDS: OLANZapine 5 MG TABLET PO SCH (20:16)
[2022-08-19] MEDS: MAGNESIUM OXIDE 400 MG TAB PO SCH (20:16)
[2022-08-19] MEDS: MIRTAZAPINE TAB 15 MG TAB PO SCH (20:16)
[2022-08-19] MEDS: guaiFENesin 600 MG TABCR PO SCH (20:17)
[2022-08-19] MEDS: ATORVASTATIN 20 MG TAB PO SCH (20:17)
[2022-08-19] MEDS ORDERED: SENNA 8.6 MG TAB PO SCH (21:00)
[2022-08-19] MEDS ORDERED: NON-FORMULARY MEDICATION (Lutein 20 mg Tablet) PO SCH (21:00)
[2022-08-20] MEDS: ceFAZolin 2000MG 2,000 MG/15 ML SYR IV SCH (00:28)
[2022-08-20] MEDS: KETOROLAC TROMETHAMINE 15 MG/ML VIAL IV SCH ×2 (00:29→08:00)
[2022-08-20] MEDS: SODIUM CHLORIDE 0.9% 1000ML 1,000 ML IV SCH (00:36)
[2022-08-20] MEDS: LEVOTHYROXINE SODIUM 75 MCG TABLET PO SCH (05:52)
--- NOTE | 2022-08-20 07:03 | Orthopedic Progress Note ---
Date of Service August 20, 2022 Assessment & Plan (1) Status post left hip replacement: Patient is doing relatively well postop day 1 from left hip replacement. Medically appears stable. Pain controlled. Hip dislocated. He is neurologically intact. 1. DVT prophylax include Katherine lechuga SCDs and back on his Eliquis today. 2. Pain control. Doing well with current pain regimen. 3. PT OT. Weight-bear as tolerated. Left total hip protocol. 4. Disposition he is hoping to go home. We will see how he does in therapy. Subjective . 81-year-old gentleman with multiple medical comorbidities now postop day 1 from a left hip replacement. He is doing well this morning. Awake alert and oriented. Denies any significant pain. No chest pain or shortness of breath. Review of Systems All systems reviewed & are unremarkable except as noted in HPI & below. Physical Exam . Physical exam shows a pleasant elderly male. He is lying in bed looks pretty co mfortable this morning. Awake alert and oriented. Examination left hip reveals the dressing clean dry and intact. Leg lengths are equal. Some mild edema. Can dorsiflex and plantarflex his foot appropriately. Respiratory normal respiratory effort, lungs clear to auscultation Cardiovascular RRR, no murmur, no edema Gastrointestinal (Abdomen) normal bowel sounds, soft, nontender, no hepatosplenomegaly Results & Data Results & Data Laboratory Results . Labs are pending Diagnostic Findings . PG Care Time/CCT Total # of Minutes Spent Total Time Spent with Patient: Total time spent is greater than 50% in coordination of care (as documented) at patient's floor/unit and/or counseling patient: Coding Level of Care Code 42980 Post Operative Follow-Up Diagnoses Status post left hip replacement Z96.642
[2022-08-20] MEDS: ALBUTEROL HFA 8 GM INHALER INH SCH ×2 (07:17→19:29)
[2022-08-20] MEDS: ALBUTEROL 0.083% NEBU SOLN 3 ML VIAL INH SCH ×2 (07:18→19:29)
[2022-08-20 07:30] LABS: Basophils # (auto) 0.02 K/uL (0-0.2); Basophils % (auto) 0.1 %; Hematocrit (blood only) 35.6 % (42.0-52.0); Hemoglobin 11.9 g/dl (14.0-18.0); Immature Granulocytes # (auto) 0.11 K/uL (0.01-0.20); Immature Granulocytes % (auto) 0.7 %; Lymphocytes # (auto) 0.89 K/uL (1.2-3.4); Mean Corpuscular Hemoglobin 31.3 pg (25.0-34.0); Mean Corpuscular Hgb Conc 33.4 g/dL (32.0-36.0); Mean Corpuscular Volume 93.7 fL (80.0-100.0); Mean Platelet Volume 11.1 fL (9.4-12.4); Monocytes # (auto) 0.85 K/uL (0.11-0.59); Monocytes % (auto) 5.7 %; Neutrophils # (auto) 12.93 K/uL (1.40-6.50); Neutrophils % (auto) 87.5 %; Platelet Count 190 K/uL (130-400); RDW Coefficient of Variation 14.6 % (11.5-14.5); RDW Standard Deviation 50.2 fL (36.4-46.3)
[2022-08-20 07:42] LABS: BUN Creatinine Ratio 20.4 (10-20); Calcium 8.9 mg/dl (8.6-10.3); Creatinine Clr Calc Pharmacy 50.7 ml/min; Est GFR (African American) 55.7 ml/min; Potassium 4.5 mmol/L (3.5-5.1)
[2022-08-20] MEDS ORDERED: dexAMETHasone 10 MG in SYRINGE 0 ML IV SCH (08:00)
[2022-08-20] MEDS: ASCORBIC ACID 500 MG TAB PO SCH ×2 (08:04→17:29)
[2022-08-20] MEDS: FLUTICASONE/VILANTEROL 200/25MCG 14 PUFFS/INHALER INH SCH (08:05)
[2022-08-20] MEDS: CALCIUM 600MG + VIT D 400 IU TAB PO SCH (08:38)
[2022-08-20] MEDS: CEROVITE ADV FORMULA TAB PO SCH (08:39)
[2022-08-20] MEDS: ASPIRIN 81 MG ECTAB PO SCH (08:39)
[2022-08-20] MEDS: TORSEMIDE 20 MG TAB PO SCH (08:39)
[2022-08-20] MEDS: ESCITALOPRAM OXALATE 20 MG TAB PO SCH (08:39)
[2022-08-20] MEDS: TAMSULOSIN HCL 0.4 MG CAP PO SCH (08:40)
[2022-08-20] MEDS: dilTIAZem HCL 180 MG CAPCR PO SCH (08:40)
[2022-08-20] MEDS: ACETAMINOPHEN 500 MG TAB PO SCH ×3 (08:41→20:49)
[2022-08-20] MEDS: METOPROLOL TARTRATE 25 MG TAB PO SCH ×2 (08:41→20:49)
[2022-08-20] MEDS: DOCUSATE SODIUM 100 MG CAP PO SCH ×2 (08:41→20:50)
[2022-08-20] MEDS: guaiFENesin 600 MG TABCR PO SCH ×2 (08:42→20:49)
[2022-08-20] MEDS: POTASSIUM CHLORIDE 10 MEQ TABCR PO SCH (08:43)
[2022-08-20] MEDS ORDERED: NON-FORMULARY MEDICATION (Multivitamin Tablet) PO SCH (09:00)
[2022-08-20] MEDS: APIXABAN 2.5 MG TAB PO SCH ×2 (11:26→20:50)
[2022-08-20] MEDS ORDERED: APIXABAN 2.5 MG TAB PO SCH (11:30)
[2022-08-20] MEDS ORDERED: FUROSEMIDE INJ 20 MG/2 ML VIAL IV ONE (14:17)
--- NOTE | 2022-08-20 14:17 | Cardiology Progress Note ---
Date of Service August 20, 2022 Assessment & Plan (1) Chronic heart failure with preserved ejection fraction: (2) Chronic atrial fibrillation: (3) Aortic stenosis, mild: Plan 81-year-old patient's status post hip replacement POD #1. Fluid balance positive more than 2 L. Crackles noted on exam. Recommend dose of IV furosemide, 20 mg. Continue current cardiovascular medications include torsemide, Aldactone, apixaban, low-dose aspirin, diltiazem, metoprolol tartrate. Admission and Anticipated Discharge Date Admission Date: August 19, 2022 Subjective Patient seen examined the bedside. More alert today. Poor historian. Denies chest pain or shortness of breath. Outpatient meds resumed. Review of Systems Review of Systems: All systems reviewed & are unremarkable except as noted in Subjective Physical Exam Constitutional: well nourished; no acute distress Respiratory: normal respiratory effort; no respiratory distress and no labored breathing Auscultation: + crackles (Bases bilateral); no rhonchi and no wheezes Cardiovascular: Rate/Rhythm: + irregularly irregular Heart Sounds: normal S1, normal S2 and + murmur (2/6 systolic ejection murmur heard best at the right second IC) Vessels: radial pulses present; no JVD and no carotid bruit Extremities: no edema Gastrointestinal (Abdomen): Inspection/Auscultation: abdomen normal to inspection and normal bowel sounds; abdomen not distended Percussion/Palpation: abdomen soft; abdomen nontender and no guarding Results & Data Vital Signs (Past 12 Hours) Vital Signs Temp Pulse Resp BP BP Pulse Ox O2 Del Method 08/20/22 11:39 36.8 C 87 18 118/60 94 Nasal Cannula 08/20/22 07:48 Nasal Cannula 08/20/22 07:36 36.7 C 101 H 16 140/89 91 Nasal Cannula 08/20/22 07:18 111 H 16 94 Nasal Cannula 08/20/22 05:54 152/98 H 08/20/22 04:01 36.4 C L 96 H 18 179/91 H 94 Nasal Cannula O2 Flow Rate 08/20/22 11:39 2 08/20/22 07:48 2 08/20/22 07:36 08/20/22 07:18 2 08/20/22 05:54 08/20/22 04:01 2 Laboratory Results CBC 08/20/22 Range/Units 06:42 WBC 14.80 H (4.8-10.8) K/ul RBC 3.80 L (4.70-6.10) M/uL Hgb 11.9 L (14.0-18.0) g/dl Hct 35.6 L (42.0-52.0) % Plt Count 190 (130-400) K/uL Neut # (Auto) 12.93 H (1.40-6.50) K/uL Lymph # (Auto) 0.89 L (1.2-3.4) K/uL Will # (Auto) 0.85 H (0.11-0.59) K/uL Eos # (Auto) 0.00 (0-0.50) K/uL Baso # (Auto) 0.02 (0-0.2) K/uL Comprehensive Metabolic Panel 08/20/22 Range/Units 06:42 Sodium 139 (136-145) mmol/L Potassium 4.5 (3.5-5.1) mmol/L Chloride 99 (98-107) mmol/L Carbon Dioxide 35 H (21-32) mmol/L BUN 28 H (6-23) mg/dl Creatinine 1.37 (0.6-1.4) mg/dl Glucose 130 H (70-99(Fasting)) mg/dl Calcium 8.9 (8.6-10.3) mg/dl Intake and Output 08/19/22 08/20/22 08/20/22 22:59 06:59 14:59 Intake Total 100 / 2400 1000 / 2400 460 / 460 Output Total 400 / 850 200 / 850 275 / 275 Balance -300 / 1550 800 / 1550 185 / 185 Intake: IV 100 / 1200 1000 / 1200 Sodium Chloride 0.9% 1000ML 1, 1000 / 1000 000 ml @ 100 mls/hr IV .Q10H IRMA Rx#:[id number] Tranexamic Acid / 0.7% NaCl 1, 100 / 100 000 mg In 100 ml @ 600 mls/hr IV Q6H IRMA Rx#:[id number] Oral 460 / 460 Output: Urine 400 / 600 200 / 600 275 / 275 Other: # Unmeasured Voids 1
[2022-08-20] MEDS: SENNA 8.6 MG TAB PO SCH (20:48)
[2022-08-20] MEDS: OLANZapine 5 MG TABLET PO SCH (20:49)
[2022-08-20] MEDS: MIRTAZAPINE TAB 15 MG TAB PO SCH (20:49)
[2022-08-20] MEDS: ATORVASTATIN 20 MG TAB PO SCH (20:50)
[2022-08-20] MEDS: MAGNESIUM OXIDE 400 MG TAB PO SCH (20:50)
[2022-08-20] MEDS: rOPINIRole HCL 1 MG TABLET PO SCH (20:50)
[2022-08-21] MEDS: LEVOTHYROXINE SODIUM 75 MCG TABLET PO SCH (05:04)
[2022-08-21] MEDS: ALBUTEROL HFA 8 GM INHALER INH SCH ×2 (07:24→19:09)
--- NOTE | 2022-08-21 07:24 | Orthopedic Progress Note ---
Date of Service August 21, 2022 Assessment & Plan (1) Status post left hip replacement: Patient is decided he wants to go to f[facility] facility. He is got multiple medical comorbidities. 1 DVT prophylaxis including thigh-high teds SCDs and back on his Eliquis 2. PT OT. Weight-bear as tolerated. Left total hip protocol #3 pain control doing well with current pain regimen for disposition he would like to go to [place] for f[facility] facility visit. He is got a with limited assistance ability. Will start working on that today. (2) Chronic heart failure with preserved ejection fraction: (3) Aortic stenosis, mild: (4) Chronic atrial fibrillation: Subjective . 1-year-old gentleman postop day 2 from left uncemented hip replacement. He is doing okay. He is got multiple medical comorbidities. Pain is well controlled. No chest pain or shortness of breath. Not feeling dizzy or lightheaded. He is decided he wants to go to a fpc facility. Review of Systems All systems reviewed & are unremarkable except as noted in HPI & below. Physical Exam . Physical examination was a pleasant elderly male. He is awake alert and oriented. Lying in bed this morning looks pretty comfortable. Examination of left hip and leg reveals the dressing clean dry and intact. Leg lengths are equal. Hip is located. He is neurologically intact. Results & Data Results & Data Laboratory Results . Diagnostic Findings . PG Care Time/CCT Total # of Minutes Spent Total Time Spent with Patient: Total time spent is greater than 50% in coordination of care (as documented) at patient's floor/unit and/or counseling patient: Coding Level of Care Code 84728 Post Operative Follow-Up Diagnoses Status post left hip replacement Z96.642 Chronic heart failure with preserved ejection fraction I50.32 Aortic stenosis, mild I35.0 Chronic atrial fibrillation I48.20
[2022-08-21] MEDS: ALBUTEROL 0.083% NEBU SOLN 3 ML VIAL INH SCH ×2 (07:28→19:36)
[2022-08-21] MEDS: SPIRONOLACTONE 12.5 MG TAB PO SCH ×3 (07:56→17:07)
[2022-08-21] MEDS: FLUTICASONE/VILANTEROL 200/25MCG 14 PUFFS/INHALER INH SCH (07:57)
[2022-08-21] MEDS: ASCORBIC ACID 500 MG TAB PO SCH ×2 (07:57→17:07)
[2022-08-21] MEDS: ESCITALOPRAM OXALATE 20 MG TAB PO SCH (08:31)
[2022-08-21] MEDS: POTASSIUM CHLORIDE 10 MEQ TABCR PO SCH (08:31)
[2022-08-21] MEDS: CALCIUM 600MG + VIT D 400 IU TAB PO SCH (08:31)
[2022-08-21] MEDS: APIXABAN 2.5 MG TAB PO SCH ×2 (08:31→20:24)
[2022-08-21] MEDS: CEROVITE ADV FORMULA TAB PO SCH (08:32)
[2022-08-21] MEDS: TORSEMIDE 20 MG TAB PO SCH (08:32)
[2022-08-21] MEDS: TAMSULOSIN HCL 0.4 MG CAP PO SCH (08:32)
[2022-08-21] MEDS: dilTIAZem HCL 180 MG CAPCR PO SCH (08:33)
[2022-08-21] MEDS: ASPIRIN 81 MG ECTAB PO SCH (08:33)
[2022-08-21] MEDS: guaiFENesin 600 MG TABCR PO SCH ×2 (08:33→20:23)
[2022-08-21] MEDS: ACETAMINOPHEN 500 MG TAB PO SCH ×3 (08:34→20:26)
[2022-08-21] MEDS: METOPROLOL TARTRATE 25 MG TAB PO SCH ×2 (08:34→20:25)
[2022-08-21] MEDS: DOCUSATE SODIUM 100 MG CAP PO SCH ×2 (08:36→20:22)
[2022-08-21 10:21] LABS: Hematocrit (blood only) 35.9 % (42.0-52.0); Hemoglobin 11.7 g/dl (14.0-18.0); Mean Corpuscular Hgb Conc 32.6 g/dL (32.0-36.0); Mean Corpuscular Volume 95.2 fL (80.0-100.0); Mean Platelet Volume 10.9 fL (9.4-12.4); Platelet Count 217 K/uL (130-400); RDW Coefficient of Variation 14.7 % (11.5-14.5); RDW Standard Deviation 51.5 fL (36.4-46.3); Red Blood Count 3.77 M/uL (4.70-6.10); White Blood Count 16.81 K/ul (4.8-10.8)
[2022-08-21 10:24] LABS: BUN Creatinine Ratio 26.2 (10-20); Calcium 8.9 mg/dl (8.6-10.3); Creatinine Clr Calc Pharmacy 55.2 ml/min; Est GFR (African American) 61.6 ml/min; Est GFR (Non-African American) 53.1 ml/min
[2022-08-21 11:15] LABS: Basophils # (auto) 0.01 K/uL (0-0.2); Basophils % (auto) 0.1 %; Immature Granulocytes # (auto) 0.19 K/uL (0.01-0.20); Immature Granulocytes % (auto) 1.1 %; Lymphocytes # (auto) 0.84 K/uL (1.2-3.4); Monocytes # (auto) 0.56 K/uL (0.11-0.59); Monocytes % (auto) 3.3 %; Neutrophils # (auto) 15.21 K/uL (1.40-6.50); Neutrophils % (auto) 90.5 %
--- NOTE | 2022-08-21 12:02 | Cardiology Progress Note ---
Date of Service August 21, 2022 Assessment & Plan (1) Chronic heart failure with preserved ejection fraction: (2) Chronic atrial fibrillation: (3) Aortic stenosis, mild: Plan 81-year-old patient's status post hip replacement POD #2. 2 L diuresis after IV furosemide yesterday 08/20/2022. Appears euvolemic on exam. Continue current cardiovascular medications include torsemide, Aldactone, apixaban, low-dose aspirin, diltiazem, metoprolol tartrate. No further inpatient cardiac testing or intervention recommended at this time. Cardiology will sign off. Please call with questions. Admission and Anticipated Discharge Date Admission Date: August 19, 2022 Subjective Patient seen examined the bedside. More alert today. Feeling well from a cardiovascular perspective. Denies chest pain or shortness of breath. Hip pain has resolved. No edema. Nearly 2 L diuresis after dose of IV furosemide yesterday. Review of Systems Review of Systems: All systems reviewed & are unremarkable except as noted in Subjective Physical Exam 2 Constitutional: well nourished; no acute distress Respiratory: normal respiratory effort; no respiratory distress and no labored breathing Auscultation: + crackles (left base); no rales, no rhonchi and no wheezes Cardiovascular: Rate/Rhythm: + irregularly irregular Heart Sounds: normal S1, normal S2 and + murmur (2/6 systolic ejection murmur heard best at the right second IC) Vessels: radial pulses present; no JVD and no carotid bruit Extremities: no edema Gastrointestinal (Abdomen): Inspection/Auscultation: abdomen normal to inspection and normal bowel sounds; abdomen not distended Percussion/Palpation: abdomen soft; abdomen nontender and no guarding Neurologic: CN's II-XI intact bilaterally and moves all extremities; no focal motor deficits Results & Data Vital Signs (Past 12 Hours) Vital Signs Temp Pulse Resp BP Pulse Ox O2 Del Method O2 Flow Rate 08/21/22 07:24 89 16 96 Nasal Cannula 2 08/21/22 07:18 Nasal Cannula 2 08/21/22 07:13 36.4 C L 89 18 142/83 H 94 Nasal Cannula 2 Laboratory Results CBC 08/21/22 Range/Units 09:48 WBC 16.81 H (4.8-10.8) K/ul RBC 3.77 L (4.70-6.10) M/uL Hgb 11.7 L (14.0-18.0) g/dl Hct 35.9 L (42.0-52.0) % Plt Count 217 (130-400) K/uL Neut # (Auto) 15.21 H (1.40-6.50) K/uL Lymph # (Auto) 0.84 L (1.2-3.4) K/uL Ralls # (Auto) 0.56 (0.11-0.59) K/uL Eos # (Auto) 0.00 (0-0.50) K/uL Baso # (Auto) 0.01 (0-0.2) K/uL Comprehensive Metabolic Panel 08/21/22 Range/Units 09:48 Sodium 138 (136-145) mmol/L Potassium 4.0 (3.5-5.1) mmol/L Chloride 97 L (98-107) mmol/L Carbon Dioxide 35 H (21-32) mmol/L BUN 33 H (6-23) mg/dl Creatinine 1.26 (0.6-1.4) mg/dl Glucose 167 H (70-99(Fasting)) mg/dl Calcium 8.9 (8.6-10.3) mg/dl Intake and Output 08/20/22 08/21/22 08/21/22 22:59 06:59 14:59 Intake Total 240 / 700 Output Total 1200 / 2676 1201 / 2676 Balance -1199 - Intake: Oral 240 / 700 Output: Urine 1200 / 2675 1200 / 2675 # Bowel Movements
[2022-08-21] MEDS: MAGNESIUM OXIDE 400 MG TAB PO SCH (20:23)
[2022-08-21] MEDS: MIRTAZAPINE TAB 15 MG TAB PO SCH (20:23)
[2022-08-21] MEDS: SENNA 8.6 MG TAB PO SCH (20:24)
[2022-08-21] MEDS: ATORVASTATIN 20 MG TAB PO SCH (20:24)
[2022-08-21] MEDS: rOPINIRole HCL 1 MG TABLET PO SCH (20:25)
[2022-08-21] MEDS: OLANZapine 5 MG TABLET PO SCH (20:25)
[2022-08-22] MEDS: MAGNESIUM HYDROXIDE SUSP 30 ML UDC PO PRN ×2 (02:22→17:04)
[2022-08-22] MEDS: LEVOTHYROXINE SODIUM 75 MCG TABLET PO SCH (05:14)
[2022-08-22] MEDS: ALBUTEROL HFA 8 GM INHALER INH SCH ×2 (07:14→19:36)
[2022-08-22] MEDS: ALBUTEROL 0.083% NEBU SOLN 3 ML VIAL INH SCH ×2 (07:17→19:36)
--- NOTE | 2022-08-22 08:00 | Orthopedic Progress Note ---
Date of Service August 22, 2022 Assessment & Plan (1) Status post left hip replacement: Patient is postop day 3 from a left total hip replacement. He is doing well. His pain is controlled. Hip is located. He is neurologically intact. Just wait for placement. 1. DVT prophylax include Thiede alexandrea SCDs and back on his Eliquis. 2. Pain control doing well with current pain regimen. We will limit narcotics to avoid confusion use Tylenol is much as possible. 3. PT OT. He is weight-bear as tolerated. Total hip precautions. 4. Disposition he is hoping to go to a senior living facility. Were just waiting for placement. Unfortunately that is probably not can happen until Wednesday at the earliest. Subjective . 81-year-old gentleman postop day 3 from a left total hip replacement. He is doing quite well. Reports no significant pain. Just waiting for placement. No chest pain or shortness of breath. Not feeling dizzy or lightheaded. Review of Systems All systems reviewed & are unremarkable except as noted in HPI & below. Physical Exam . Physical examination was a pleasant elderly male. He is lying in bed this morning. He is awake alert and oriented. Examination left hip reveals the incision today and dressing to be clean dry and intact. No drainage. Thigh is soft and supple. Leg lengths are equal. Hip is located. He is neurologically intact. Results & Data Results & Data Laboratory Results . Diagnostic Findings . PG Care Time/CCT Total # of Minutes Spent Total Time Spent with Patient: Total time spent is greater than 50% in coordination of care (as documented) at patient's floor/unit and/or counseling patient: Coding Level of Care Code 54864 Post Operative Follow-Up Diagnoses Status post left hip replacement Z96.642
[2022-08-22] MEDS: DOCUSATE SODIUM 100 MG CAP PO SCH ×2 (09:12→21:01)
[2022-08-22] MEDS: ASCORBIC ACID 500 MG TAB PO SCH ×2 (09:12→17:19)
[2022-08-22] MEDS: ACETAMINOPHEN 500 MG TAB PO SCH ×3 (09:12→20:59)
[2022-08-22] MEDS: APIXABAN 2.5 MG TAB PO SCH ×2 (09:13→21:05)
[2022-08-22] MEDS: POTASSIUM CHLORIDE 10 MEQ TABCR PO SCH (09:13)
[2022-08-22] MEDS: TORSEMIDE 20 MG TAB PO SCH (09:13)
[2022-08-22] MEDS: ASPIRIN 81 MG ECTAB PO SCH (09:13)
[2022-08-22] MEDS: dilTIAZem HCL 180 MG CAPCR PO SCH (09:13)
[2022-08-22] MEDS: TAMSULOSIN HCL 0.4 MG CAP PO SCH (09:13)
[2022-08-22] MEDS: ESCITALOPRAM OXALATE 20 MG TAB PO SCH (09:13)
[2022-08-22] MEDS: CEROVITE ADV FORMULA TAB PO SCH (09:13)
[2022-08-22] MEDS: CALCIUM 600MG + VIT D 400 IU TAB PO SCH (09:13)
[2022-08-22] MEDS: guaiFENesin 600 MG TABCR PO SCH ×2 (09:13→21:02)
[2022-08-22] MEDS: METOPROLOL TARTRATE 25 MG TAB PO SCH ×2 (09:13→21:04)
[2022-08-22] MEDS: FLUTICASONE/VILANTEROL 200/25MCG 14 PUFFS/INHALER INH SCH (09:14)
[2022-08-22] MEDS: ATORVASTATIN 20 MG TAB PO SCH (20:59)
[2022-08-22] MEDS: rOPINIRole HCL 1 MG TABLET PO SCH (21:01)
[2022-08-22] MEDS: MIRTAZAPINE TAB 15 MG TAB PO SCH (21:01)
[2022-08-22] MEDS: OLANZapine 5 MG TABLET PO SCH (21:03)
[2022-08-22] MEDS: MAGNESIUM OXIDE 400 MG TAB PO SCH (21:03)
[2022-08-22] MEDS: SENNA 8.6 MG TAB PO SCH (21:06)
[2022-08-23] MEDS: LEVOTHYROXINE SODIUM 75 MCG TABLET PO SCH (06:16)
[2022-08-23] MEDS: MAGNESIUM HYDROXIDE SUSP 30 ML UDC PO PRN (06:16)
[2022-08-23] MEDS: ALBUTEROL HFA 8 GM INHALER INH SCH ×2 (07:28→19:54)
[2022-08-23] MEDS: ALBUTEROL 0.083% NEBU SOLN 3 ML VIAL INH SCH ×2 (07:28→19:55)
--- NOTE | 2022-08-23 08:02 | Orthopedic Progress Note ---
Date of Service August 23, 2022 Assessment & Plan (1) Status post left hip replacement: Postop day 4 from a total hip replacement. He is doing well. Is got multiple medical comorbidities and slow to recover. His pain is controlled. Hip is located. He is neurologically intact. Plan: 1. DVT prophylax include Thiedcelestine lechuga SCDs and back on his Eliquis 2. PT OT. Weight-bear as tolerated total hip protocol 3. Pain control doing okay with current pain regimen 4. Ddisposition he is planned to go to a half-way facility. We are just waiting for approval and authorization. Subjective . 81-year-old gentleman postop day 4 from a total hip replacement. He is doing well. He did continue to get a little bit better each day. He is moving around pretty slowly. Denies any significant pain. No chest pain or shortness of breath. Not feeling dizzy or lightheaded. Review of Systems All systems reviewed & are unremarkable except as noted in HPI & below. Physical Exam . Physical examination reveals a pleasant elderly male. He was walk around his room this morning with some assistance with a walker. Examination left hip reveals a dressing in place. There is a little bit of bloody drainage on it. Site is soft and supple. Hip is located. He is neurologically intact. Results & Data Results & Data Laboratory Results . Diagnostic Findings . PG Care Time/CCT Total # of Minutes Spent Total Time Spent with Patient: Total time spent is greater than 50% in coordination of care (as documented) at patient's floor/unit and/or counseling patient: Coding Level of Care Code 86340 Post Operative Follow-Up Diagnoses Status post left hip replacement Z96.642
[2022-08-23] MEDS: APIXABAN 2.5 MG TAB PO SCH ×2 (09:20→20:37)
[2022-08-23] MEDS: ASCORBIC ACID 500 MG TAB PO SCH ×2 (09:20→17:19)
[2022-08-23] MEDS: ESCITALOPRAM OXALATE 20 MG TAB PO SCH (09:20)
[2022-08-23] MEDS: CALCIUM 600MG + VIT D 400 IU TAB PO SCH (09:20)
[2022-08-23] MEDS: DOCUSATE SODIUM 100 MG CAP PO SCH ×2 (09:20→20:37)
[2022-08-23] MEDS: ACETAMINOPHEN 500 MG TAB PO SCH ×3 (09:20→20:36)
[2022-08-23] MEDS: dilTIAZem HCL 180 MG CAPCR PO SCH (09:20)
[2022-08-23] MEDS: guaiFENesin 600 MG TABCR PO SCH ×2 (09:21→20:37)
[2022-08-23] MEDS: CEROVITE ADV FORMULA TAB PO SCH (09:21)
[2022-08-23] MEDS: METOPROLOL TARTRATE 25 MG TAB PO SCH ×2 (09:21→20:37)
[2022-08-23] MEDS: TAMSULOSIN HCL 0.4 MG CAP PO SCH (09:22)
[2022-08-23] MEDS: FLUTICASONE/VILANTEROL 200/25MCG 14 PUFFS/INHALER INH SCH (09:23)
[2022-08-23] MEDS: ASPIRIN 81 MG ECTAB PO SCH (09:24)
[2022-08-23] MEDS: POTASSIUM CHLORIDE 10 MEQ TABCR PO SCH (09:24)
[2022-08-23] MEDS: TORSEMIDE 20 MG TAB PO SCH (10:08)
[2022-08-23] MEDS: SENNA 8.6 MG TAB PO SCH (20:36)
[2022-08-23] MEDS: ATORVASTATIN 20 MG TAB PO SCH (20:37)
[2022-08-23] MEDS: rOPINIRole HCL 1 MG TABLET PO SCH (20:37)
[2022-08-23] MEDS: MIRTAZAPINE TAB 15 MG TAB PO SCH (20:37)
[2022-08-23] MEDS: MAGNESIUM OXIDE 400 MG TAB PO SCH (20:37)
[2022-08-23] MEDS: OLANZapine 5 MG TABLET PO SCH (20:37)
[2022-08-24] MEDS: LEVOTHYROXINE SODIUM 75 MCG TABLET PO SCH (05:52)
--- NOTE | 2022-08-24 07:23 | Orthopedic Progress Note ---
Date of Service August 24, 2022 Assessment & Plan (1) Status post left hip replacement: Patient is doing well now 5 days out from a total hip replacement. We just can wait for placement. His pain is controlled. Hip is located. He is neurologically intact. Plan: 1. DVT prophylax include Thiede teds SCDs and Eliquis 2. Pain control doing okay with current pain regimen. Really not have much pain. 3. PT OT. Weight-bear as tolerated. Left total hip protocol. 4. Disposition he is hoping to go to alf facility. Hopefully will get him somewhere today. Subjective . 81-year-old gentleman now postop day 5 from a left total hip replacement. He is doing well. Denies any significant hip pain. He is just waiting for placement. No chest pain or shortness of breath. Not feeling dizzy or lightheaded. Review of Systems All systems reviewed & are unremarkable except as noted in HPI & below. Physical Exam . Physical examination reveals a pleasant elderly male. Lying in bed this morning. He is awake alert and oriented and appropriate. Examination left hip reveals dressing clean dry and intact. There is no drainage. Thigh is soft and supple. Leg lengths are equal. He is neurologically intact. Results & Data Results & Data Laboratory Results . Diagnostic Findings . PG Care Time/CCT Total # of Minutes Spent Total Time Spent with Patient: Total time spent is greater than 50% in coordination of care (as documented) at patient's floor/unit and/or counseling patient: Coding Level of Care Code 82981 Post Operative Follow-Up Diagnoses Status post left hip replacement Z96.642
[2022-08-24] MEDS: ALBUTEROL 0.083% NEBU SOLN 3 ML VIAL INH SCH (07:25)
[2022-08-24] MEDS: ALBUTEROL HFA 8 GM INHALER INH SCH (07:50)
[2022-08-24] MEDS: ACETAMINOPHEN 500 MG TAB PO SCH (08:46)
[2022-08-24] MEDS: ASCORBIC ACID 500 MG TAB PO SCH (08:46)
[2022-08-24] MEDS: CALCIUM 600MG + VIT D 400 IU TAB PO SCH (08:46)
[2022-08-24] MEDS: METOPROLOL TARTRATE 25 MG TAB PO SCH (08:46)
[2022-08-24] MEDS: TORSEMIDE 20 MG TAB PO SCH (08:46)
[2022-08-24] MEDS: ASPIRIN 81 MG ECTAB PO SCH (08:46)
[2022-08-24] MEDS: SPIRONOLACTONE 12.5 MG TAB PO SCH ×2 (08:46→12:25)
[2022-08-24] MEDS: ESCITALOPRAM OXALATE 20 MG TAB PO SCH (08:46)
[2022-08-24] MEDS: APIXABAN 2.5 MG TAB PO SCH (08:46)
[2022-08-24] MEDS: DOCUSATE SODIUM 100 MG CAP PO SCH (08:46)
[2022-08-24] MEDS: POTASSIUM CHLORIDE 10 MEQ TABCR PO SCH (08:47)
[2022-08-24] MEDS: dilTIAZem HCL 180 MG CAPCR PO SCH (08:47)
[2022-08-24] MEDS: FLUTICASONE/VILANTEROL 200/25MCG 14 PUFFS/INHALER INH SCH (08:47)
[2022-08-24] MEDS: TAMSULOSIN HCL 0.4 MG CAP PO SCH (08:47)
[2022-08-24] MEDS: CEROVITE ADV FORMULA TAB PO SCH (08:47)
[2022-08-24] MEDS: guaiFENesin 600 MG TABCR PO SCH (08:48)
== END 2022-08-24 14:11 ==
LOC: 3W 06:18 → ASU 06:18

== ENCOUNTER 2022-11-30 12:32 | Inpatient (IN) ==
[2022-11-30 13:18] LABS: Basophils # (auto) 0.05 K/uL (0.00-0.20); Basophils % (auto) 0.5 %; Eosinophils # (auto) 0.33 K/uL (0.00-0.50); Eosinophils % (auto) 3.5 %; Hemoglobin 13.4 g/dl (14.0-18.0); Immature Granulocytes # (auto) 0.03 K/uL (0.01-0.20); Immature Granulocytes % (auto) 0.3 %; Lymphocytes # (auto) 2.04 K/uL (1.20-3.40); Lymphocytes % (auto) 21.8 %; Mean Corpuscular Hgb Conc 32.7 g/dL (32.0-36.0); Mean Corpuscular Volume 91.7 fL (80.0-100.0); Mean Platelet Volume 11.5 fL (9.4-12.4); Monocytes # (auto) 0.78 K/uL (0.11-0.59); Monocytes % (auto) 8.3 %; Neutrophils # (auto) 6.13 K/uL (1.40-6.50); Neutrophils % (auto) 65.6 %; Platelet Count 169 K/uL (130-400); RDW Coefficient of Variation 15.4 % (11.5-14.5); RDW Standard Deviation 51.8 fL (36.4-46.3); Red Blood Count 4.47 M/uL (4.70-6.10); White Blood Count 9.36 K/ul (4.8-10.8)
--- NOTE | 2022-11-30 13:28 | Emergency Department Note ---
History of Present Illness General Chief complaint: Weakness Stated complaint: WEAKNESS, UNABLE TO STAND Time Seen by Provider: 11/30/22 13:04 History of Present Illness 82-year-old male presents emergency department states he is feeling weak and had fallen this morning. Patient typically is using a walker as he is postop left knee replacement in August. Patient was in rehab for 6 weeks and currently is having physical therapy at his house which was supposed to come today. However in the past 2 days he states increased weakness this morning he did fall he did not strike his head. He is on Eliquis. He states general malaise denies cough cold congestion however he states he has a history of asthmatic bronchitis and felt like he was wheezing more. Family states that he essentially has regressed since coming home from rehab. We were concerned due to the fact that he can only walk a few steps using his walker. Home Medications Medication Instructions Recorded Confirmed Type albuterol sulfate 90 mcg/actuation 2 puff inhalation BID 08/03/22 11/30/22 History aerosol inhaler apixaban 2.5 mg tablet (Eliquis) 2.5 mg PO BID 08/03/22 11/30/22 History aspirin 81 mg capsule 81 mg PO QAM 08/03/22 11/30/22 History atorvastatin 20 mg tablet (Lipitor) 20 mg PO HS 08/03/22 11/30/22 History calcium carbonate 600 mg-vitamin 1 tab PO QAM 08/03/22 11/30/22 History D3 10 mcg (400 unit) tablet (Calcium 600 + D(3)) cyclosporine 0.05 % eye drops in a 1 drp ophthalmic (eye) Q12H PRN 08/03/22 11/30/22 History dropperette (Restasis) Dry Eye(S) diltiazem HCl 180 mg 180 mg PO QAM 08/03/22 11/30/22 History capsule,extended release 24 hr escitalopram oxalate 20 mg tablet 20 mg PO QAM 08/03/22 11/30/22 History (Lexapro) fluticasone 250 mcg-salmeterol 50 1 inh inhalation BID 08/03/22 11/30/22 History mcg/dose blistr powdr for inhalation (Wixela Inhub) guaifenesin 600 mg tablet, 600 mg PO BID 08/03/22 11/30/22 History extended release 12 hr (Mucinex) levothyroxine 75 mcg tablet 75 mcg PO QAM 08/03/22 11/30/22 History lutein 20 mg tablet 20 mg PO HS 08/03/22 11/30/22 History magnesium 200 mg tablet 400 mg PO HS 08/03/22 11/30/22 History metoprolol tartrate 25 mg tablet 25 mg PO BID 08/03/22 11/30/22 History mirtazapine 30 mg tablet (Remeron) 30 mg PO HS 08/03/22 11/30/22 History multivitamin 1 tab PO QAM 08/03/22 11/30/22 History olanzapine 5 mg tablet (Zyprexa) 5 mg PO HS 08/03/22 11/30/22 History potassium chloride 10 mEq 10 meq PO QAM 08/03/22 11/30/22 History capsule,extended release ropinirole 1 mg tablet 1 mg PO HS 08/03/22 11/30/22 History spironolactone 25 mg tablet 12.5 mg PO UD 08/03/22 11/30/22 History tamsulosin 0.4 mg capsule 0.4 mg PO QAM 08/03/22 11/30/22 History acetaminophen 500 mg tablet 1,000 mg PO TID pain 30 days #180 08/17/22 11/30/22 Rx (Tylenol Extra Strength) tabs sodium chloride 3 % for 3 ml inhalation BID 11/30/22 11/30/22 History nebulization torsemide 20 mg tablet 40 mg PO DAILY 11/30/22 11/30/22 History Allergies Allergy/AdvReac Type Severity Reaction Status Date / Time oxycodone Allergy Unknown Flushing Verified 09/24/22 13:02 propoxyphene Allergy Unknown Flushing Verified 09/24/22 13:02 niacin AdvReac Unknown flushed Verified 09/24/22 13:02 feeling Past Med/Surg History Medical History (Updated 11/30/22 @ 15:37 by Beata Harrington PA-C) A-fib follows w/ [facility], [place] [facility] on Eliquis Anxiety and depression Aortic stenosis Mild per 2021 ECHO Asthmatic bronchitis Breathing stable - chronic (hx of smoker) Chronic kidney disease (CKD), stage III (moderate) Chronic respiratory failure Diastolic heart failure Compensated per cardio records Encounter for pre-operative examination HTN (hypertension) Hx of pyoderma gangrenosum BLE Hyperlipidemia Hypothyroidism On anticoagulant therapy eliquis Pacemaker medtronic, last checked 05/13/22, remotely Prostate cancer Around 2013- s/p brachytherapy - Lupron q 3 months Pulmonary disease restrictive lung disease, hypoxic respiratory failure, hypercapnic respiratory failure , bronchiectasis, 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, 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 per records Restless leg syndrome Sleep apnea bipap; 3 lpm hs Tachy-noni syndrome s/p pacemaker placement 2017 Surgical History History of surgery Rectal fissure repair Hx of colonoscopy Hx of tonsillectomy Hx of total hip arthroplasty RIGHT S/P placement of cardiac pacemaker Status post left hip replacement Family History Other No family history of adverse response to anesthesia Social History (Updated 11/30/22 @ 15:46 by Beata Harrington PA-C) Smoking Status: Former smoker Smoking End Date: Quit in 1978; Second Hand Exposure: No; Do You Dip or Chew Tobacco: No; Hx Alcohol Use: No Hx Substance Use: No Preferred Language: Korean Communication Ability: Effective Shirt Finisher Required: No Beliefs That Will Affect Care: None Current Living Situation: Spouse Feels Safe at Home: Yes Assistive Devices: BiPap, Cane, Oxygen - Continuous and Walker Review of Systems A total of 10 systems reviewed and were otherwise negative Constitutional: + weakness Cardiovascular: + dyspnea at rest; no chest pain Physical Exam Vital Signs Vital Signs - 24 hr 11/30/22 12:59 11/30/22 12:59 11/30/22 13:05 Temperature 37 C Temperature Source Oral Pulse Rate 91 H 94 H Pulse Rate [Right Finger] Pulse Rhythm Regular Respiratory Rate 23 22 Respiratory Effort / Characteristics Non-Labored Spontaneous Respiratory Depth Normal Blood Pressure 129/98 Blood Pressure [Right Arm] Blood Pressure Mean 108 Blood Pressure Mean [Right Arm] Pulse Oximetry 96 96 97 Oxygen Delivery Method Nasal Cannula Nasal Cannula Nasal Cannula Oxygen Flow Rate 3 3 3 Sepsis Recent Fever Within 48 Hours No Sepsis New/Unexplained Change in Mental Status N/A Sepsis Action Taken by Nursing No Action Required 11/30/22 13:57 11/30/22 14:30 11/30/22 14:45 Temperature Temperature Source Pulse Rate Pulse Rate [Right Finger] 91 H 109 H 102 H Pulse Rhythm Respiratory Rate 20 26 H 22 Respiratory Effort / Characteristics Spontaneous Non-Labored Spontaneous Spontaneous Respiratory Depth Normal Blood Pressure Blood Pressure [Right Arm] 158/99 H 170/124 H 152/102 H Blood Pressure Mean Blood Pressure Mean [Right Arm] 118 139 118 Pulse Oximetry 96 95 96 Oxygen Delivery Method Nasal Cannula Nasal Cannula Nasal Cannula Oxygen Flow Rate 3 3 3 Sepsis Recent Fever Within 48 Hours Sepsis New/Unexplained Change in Mental Status Sepsis Action Taken by Nursing 11/30/22 15:15 11/30/22 15:30 Temperature Temperature Source Pulse Rate Pulse Rate [Right Finger] 97 H 96 H Pulse Rhythm Respiratory Rate 26 H 16 Respiratory Effort / Characteristics Non-Labored Spontaneous Non-Labored Respiratory Depth Normal Normal Blood Pressure Blood Pressure [Right Arm] 158/107 H 160/105 H Blood Pressure Mean Blood Pressure Mean [Right Arm] 124 123 Pulse Oximetry 96 95 Oxygen Delivery Method Nasal Cannula Oxygen Flow Rate 3 Sepsis Recent Fever Within 48 Hours Sepsis New/Unexplained Change in Mental Status Sepsis Action Taken by Nursing GENERAL: Patient is awake alert in no acute distress patient is resting comfortably and showing no signs of anxiety EYES: The conjunctivae are clear. The pupils are round and reactive. EARS, NOSE, MOUTH AND THROAT: The nose is without any evidence of any deformity. Mucous membranes are moist. Tongue is midline. NECK: The neck is nontender and supple. RESPIRATORY: Normal respiratory effort is noted there is no evidence of wheezing rhonchi or rales CARDIOVASCULAR: Irregularly irregular rate and rhythm noted there no murmurs rubs or gallops normal S1 normal S2. GASTROINTESTINAL: The abdomen is soft. Abdomen is nontender. BACK: No midline tenderness or or step-off noted range of motion in flexion extension as well as rotation no signs of muscle spasm noted MUSCULOSKELETAL/EXTREMITIES: There is no evidence of gross deformity full range of motion is noted in the hips and shoulders. SKIN: There is no obvious evidence of any rash. There are no petechiae, pallor or cyanosis noted. NEUROLOGIC: Patient is awake alert and oriented x3 strength is symmetric Course Reevaluation(s) Reevaluation #1: Patient is resting in no distress; patient does have myoclonic jerks in his legs that are reportedly involuntary and have been ongoing for a long period of time. The family states that they are unable to take care of him at home they cannot lift him out of a chair. I did discuss the evaluation with the patient the patient's family and currently there are no signs of infection or intracranial hemorrhage Time: 15:06 Consultations Consultation #1: [facility] hospitalist for admission Time: 17:00 Administered Medications Discontinued Medications Acetaminophen (Acetaminophen 500 Mg Tab) 1,000 mg PO NOW STA Stop: 11/30/22 16:03 Last Admin: 11/30/22 16:26 Dose: 1,000 mg Documented By: SNEHA Diltiazem HCl (Diltiazem Hcl 180 Mg Capcr) 180 mg PO ONE ONE Stop: 11/30/22 16:44 Last Admin: 11/30/22 17:11 Dose: 180 mg Documented By: JOSSELIN Metoprolol Tartrate (Metoprolol Tartrate 25 Mg Tab) 25 mg PO NOW STA Stop: 11/30/22 16:02 Last Admin: 11/30/22 16:26 Dose: 25 mg Documented By: SNEHA Torsemide (Torsemide 10 Mg Tab) [facility] [place]: 12/30/22 16:14 Last Admin: 11/30/22 17:02 Dose: Not Given Documented By: JOSSELIN Torsemide (Torsemide 10 Mg Tab) 40 mg PO NOW STA Stop: 11/30/22 16:24 Last Admin: 11/30/22 17:12 Dose: 40 mg Documented By: JOSSELIN Medical Decision Making Medical Records Attestation: I reviewed the patient's medical records. Home Medications Current Medication List: was personally reviewed by me Laboratory Data Attestation: I reviewed the patient's lab results. Patient's labs interpreted by me are unremarkable 11/30/22 12:58 11/30/22 12:58 Lab Results 11/30/22 11/30/22 11/30/22 Range/Units 12:54 12:58 12:58 WBC 9.36 (4.8-10.8) K/ul RBC 4.47 L (4.70-6.10) M/uL Hgb 13.4 L (14.0-18.0) g/dl Hct 41.0 L (42.0-52.0) % MCV 91.7 (80.0-100.0) fL MCH 30.0 (25.0-34.0) pg MCHC 32.7 (32.0-36.0) g/dL RDW Std Deviation 51.8 H (36.4-46.3) fL RDW Coeff of Reuben 15.4 H (11.5-14.5) % Plt Count 169 (130-400) K/uL MPV 11.5 (9.4-12.4) fL Immature Gran % (Auto) 0.3 % Neut % (Auto) 65.6 % Lymph % (Auto) 21.8 % [place] % (Auto) 8.3 % Eos % (Auto) 3.5 % Baso % (Auto) 0.5 % Neut # (Auto) 6.13 (1.40-6.50) K/uL Lymph # (Auto) 2.04 (1.20-3.40) K/uL [place] # (Auto) 0.78 H (0.11-0.59) K/uL Eos # (Auto) 0.33 (0.00-0.50) K/uL Baso # (Auto) 0.05 (0.00-0.20) K/uL Immature Gran # (Auto) 0.03 (0.01-0.20) K/uL Sodium 141 (136-145) mmol/L Potassium 4.0 (3.5-5.1) mmol/L Chloride 100 (98-107) mmol/L Carbon Dioxide 38 H (21-32) mmol/L Anion Gap 3 (3-11) BUN 19 (6-23) mg/dl Creatinine 1.11 (0.6-1.4) mg/dl Est Cr Clr Drug Dosing 61.1 ml/min Est GFR ( Amer) 71.3 ml/min Est GFR (Non-Af Amer) 61.5 ml/min BUN/Creatinine Ratio 17.1 (10-20) Glucose 87 (70-99(Fasting)) mg/dl POC Glucose 82 (70-99) mg/dl Lactate (0.4-2.0) mmol/L Calcium 9.8 (8.6-10.3) mg/dl Magnesium 2.1 (1.7-2.4) mg/dl Total Bilirubin 0.7 (0.2-1.0) mg/dl Direct Bilirubin 0.1 (0-0.2) mg/dl AST 24 (13-39) U/L ALT 21 (7-52) U/L Alkaline Phosphatase 74 (34-104) U/L Total Protein 6.8 (6.0-8.3) gm/dl Albumin 4.0 (3.4-5.0) gm/dl Procalcitonin (0-0.5) ng/ml Urine Color Urine Appearance (Clear) Urine pH (4.5-7.5) Ur Specific [place] (1.000-1.030) Urine Protein (Negative) Urine Glucose (UA) (Negative) Urine Ketones (Negative) Urine Blood (Negative) Urine Nitrite (Negative) Urine Bilirubin (Negative) Urine Urobilinogen (Negative) Ur Leukocyte Esterase (Negative) SARS-CoV-2, RNA, NAAT (NEGATIVE) 11/30/22 11/30/22 11/30/22 Range/Units 12:58 13:10 13:19 WBC (4.8-10.8) K/ul RBC (4.70-6.10) M/uL Hgb (14.0-18.0) g/dl Hct (42.0-52.0) % MCV (80.0-100.0) fL MCH (25.0-34.0) pg MCHC (32.0-36.0) g/dL RDW Std Deviation (36.4-46.3) fL RDW Coeff of Reuben (11.5-14.5) % Plt Count (130-400) K/uL MPV (9.4-12.4) fL Immature Gran % (Auto) % Neut % (Auto) % Lymph % (Auto) % [place] % (Auto) % Eos % (Auto) % Baso % (Auto) % Neut # (Auto) (1.40-6.50) K/uL Lymph # (Auto) (1.20-3.40) K/uL [place] # (Auto) (0.11-0.59) K/uL Eos # (Auto) (0.00-0.50) K/uL Baso # (Auto) (0.00-0.20) K/uL Immature Gran # (Auto) (0.01-0.20) K/uL Sodium (136-145) mmol/L Potassium (3.5-5.1) mmol/L Chloride (98-107) mmol/L Carbon Dioxide (21-32) mmol/L Anion Gap (3-11) BUN (6-23) mg/dl Creatinine (0.6-1.4) mg/dl Est Cr Clr Drug Dosing ml/min Est GFR ( Amer) ml/min Est GFR (Non-Af Amer) ml/min BUN/Creatinine Ratio (10-20) Glucose (70-99(Fasting)) mg/dl POC Glucose (70-99) mg/dl Lactate 0.8 (0.4-2.0) mmol/L Calcium (8.6-10.3) mg/dl Magnesium (1.7-2.4) mg/dl Total Bilirubin (0.2-1.0) mg/dl Direct Bilirubin (0-0.2) mg/dl AST (13-39) U/L ALT (7-52) U/L Alkaline Phosphatase (34-104) U/L Total Protein (6.0-8.3) gm/dl Albumin (3.4-5.0) gm/dl Procalcitonin < 0.05 (0-0.5) ng/ml Urine Color Urine Appearance (Clear) Urine pH (4.5-7.5) Ur Specific [place] (1.000-1.030) Urine Protein (Negative) Urine Glucose (UA) (Negative) Urine Ketones (Negative) Urine Blood (Negative) Urine Nitrite (Negative) Urine Bilirubin (Negative) Urine Urobilinogen (Negative) Ur Leukocyte Esterase (Negative) SARS-CoV-2, RNA, NAAT NEGATIVE (NEGATIVE) 11/30/22 Range/Units 14:24 WBC (4.8-10.8) K/ul RBC (4.70-6.10) M/uL Hgb (14.0-18.0) g/dl Hct (42.0-52.0) % MCV (80.0-100.0) fL MCH (25.0-34.0) pg MCHC (32.0-36.0) g/dL RDW Std Deviation (36.4-46.3) fL RDW Coeff of Reuben (11.5-14.5) % Plt Count (130-400) K/uL MPV (9.4-12.4) fL Immature Gran % (Auto) % Neut % (Auto) % Lymph % (Auto) % [place] % (Auto) % Eos % (Auto) % Baso % (Auto) % Neut # (Auto) (1.40-6.50) K/uL Lymph # (Auto) (1.20-3.40) K/uL [place] # (Auto) (0.11-0.59) K/uL Eos # (Auto) (0.00-0.50) K/uL Baso # (Auto) (0.00-0.20) K/uL Immature Gran # (Auto) (0.01-0.20) K/uL Sodium (136-145) mmol/L Potassium (3.5-5.1) mmol/L Chloride (98-107) mmol/L Carbon Dioxide (21-32) mmol/L Anion Gap (3-11) BUN (6-23) mg/dl Creatinine (0.6-1.4) mg/dl Est Cr Clr Drug Dosing ml/min Est GFR ( Amer) ml/min Est GFR (Non-Af Amer) ml/min BUN/Creatinine Ratio (10-20) Glucose (70-99(Fasting)) mg/dl POC Glucose (70-99) mg/dl Lactate (0.4-2.0) mmol/L Calcium (8.6-10.3) mg/dl Magnesium (1.7-2.4) mg/dl Total Bilirubin (0.2-1.0) mg/dl Direct Bilirubin (0-0.2) mg/dl AST (13-39) U/L ALT (7-52) U/L Alkaline Phosphatase (34-104) U/L Total Protein (6.0-8.3) gm/dl Albumin (3.4-5.0) gm/dl Procalcitonin (0-0.5) ng/ml Urine Color Yellow Urine Appearance Clear (Clear) Urine pH 5.5 (4.5-7.5) Ur Specific [place] 1.017 (1.000-1.030) Urine Protein Negative (Negative) Urine Glucose (UA) Negative (Negative) Urine Ketones Negative (Negative) Urine Blood Negative (Negative) Urine Nitrite Negative (Negative) Urine Bilirubin Negative (Negative) Urine Urobilinogen Negative (Negative) Ur Leukocyte Esterase Negative (Negative) SARS-CoV-2, RNA, NAAT (NEGATIVE) Imaging Data Attestation: I personally reviewed and interpreted this imaging study as follows: My Impression: Chest x-ray interpreted by me negative for infiltrate Radiologist's Impression: Chest X-Ray 11/30/22 13:04 XR chest 1V portable CLINICAL HISTORY: Sepsis TECHNIQUE: Single frontal radiograph of the chest was obtained. Comparison: Comparison is made to chest radiograph 08/05/2022 FINDINGS: Lines and tubes are stable. Calcified aortic knob is seen. Lungs are underinflated but clear. No evidence of pleural effusion or pneumothorax. IMPRESSION: No acute abnormalities and in particular no radiographic evidence of pneumonia. ACT 112: Negative or not required by law. Electronically signed by: Beka Merlos M.D. 11/30/2022 1:[address] 11/30/22 13:04 CT head/brain wo con CLINICAL HISTORY: 82 years-old Male with fall. Acute head trauma status post fall TECHNIQUE: Multiple axial CT images of the head were obtained without contrast. A dose lowering technique was utilized adhering to the principles of ALARA. CT DOSE: 625.8 mGy.cm COMPARISON: None. FINDINGS: No acute intracranial hemorrhage, midline shift, intracranial mass, hydrocephalus, territorial ischemia or abnormal extra-axial collection. Involutional changes with chronic microvascular ischemic disease. The calvarium is intact. Prior bilateral lens repair. The paranasal sinuses, mastoid air cells, and middle ear cavities are clear. IMPRESSION: No acute intracranial abnormality or calvarial fracture. ACT 112: Negative or not required by law. The above report was generated using voice recognition software. It may contain grammatical, syntax or spelling errors. Electronically signed by: Gavin Recio M.D. 11/30/2022 1:53 PM ECG Data Attestation: I personally reviewed and interpreted this ECG as follows: MDM Narrative Medical decision making differential diagnosis includes electrolyte abnormality, metabolic derangement, dehydration, anemia occult infection Plan is to check labs, sepsis protocol, CT brain Independent history was provided to me by the patient's son and at bedside who states that he is now more Deconditioned since he left rehab over 6 weeks ago. Case was discussed with the [facility] hospitalist for admission Impression & Plan Weakness Discharge Plan Visit Data Chief Complaint: Weakness Stated Complaint: WEAKNESS, UNABLE TO STAND ED Provider: Boston Ramirez Discharge Problem: Weakness Patient Disposition: Admitted As Inpatient Discharge Instructions Interventions: ED Discharge Assessment Last Done: 11/30/22 17:49
[2022-11-30 13:33] LABS: BUN Creatinine Ratio 17.1 (10-20); Bilirubin Direct 0.1 mg/dl (0-0.2); Bilirubin,Total 0.7 mg/dl (0.2-1.0); Calcium 9.8 mg/dl (8.6-10.3); Creatinine Clr Calc Pharmacy 61.1 ml/min; Est GFR (African American) 71.3 ml/min; Est GFR (Non-African American) 61.5 ml/min; Magnesium 2.1 mg/dl (1.7-2.4); Total Protein 6.8 gm/dl (6.0-8.3)
--- NOTE | 2022-11-30 13:42 | XRay Report ---
XR chest 1V portable CLINICAL HISTORY: Sepsis TECHNIQUE: Single frontal radiograph of the chest was obtained. Comparison: Comparison is made to chest radiograph 08/05/2022 FINDINGS: Lines and tubes are stable. Calcified aortic knob is seen. Lungs are underinflated but clear. No evid ence of pleural effusion or pneumothorax. IMPRESSION: No acute abnormalities and in particular no radiographic evidence of pneumonia. ACT 112: Negative or not required by law. Electronically signed by: Beka Merlos M.D. 11/30/2022 1:39 PM
--- NOTE | 2022-11-30 13:54 | CT Scan Report ---
CT head/brain wo con CLINICAL HISTORY: 82 years-old Male with fall. Acute head trauma status post fall TECHNIQUE: Multiple axial CT images of the head were obtained without contrast. A dose lowering tech nique was utilized adhering to the principles of ALARA. CT DOSE: 625.8 mGy.cm COMPARISON: None. FINDINGS: No acute intracranial hemorrhage, midline shift, intracranial mass, hydrocephalus, territorial ischem ia or abnormal extra-axial collection. Involutional changes with chronic microvascular ischemic disea se. The calvarium is intact. Prior bilateral lens repair. The paranasal sinuses, mastoid air cells, and middle ear cavities are clear. IMPRESSION: No acute intracranial abnormality or calvarial fracture. ACT 112: Negative or not required by law. The above report was generated using voice recognition software. It may contain grammatical, syntax o r spelling errors. Electronically signed by: Gavin Recio M.D. 11/30/2022 1:53 PM
[2022-11-30 14:45] LABS: Appearance Urine Clear (Clear); Bilirubin Urine Negative (Negative); Blood Urine Negative (Negative); Color Urine Yellow; Glucose Urine UA Negative (Negative); Ketones Urine Negative (Negative); Leukocyte Esterase Urine Negative (Negative); Nitrite Urine Negative (Negative); Protein Urine Negative (Negative); Specific Gravity Urine 1.017 (1.000-1.030); Urobilinogen Urine Negative (Negative); pH Urine 5.5 (4.5-7.5)
--- NOTE | 2022-11-30 15:30 | History & Physical Report ---
Date of Service November 30, 2022 Assessment & Plan (1) Weakness: Plan: Patient is 82-year-old male with PMH chronic atrial fibrillation chronically anticoagulated on Eliquis, tachybradycardia syndrome s/p pacemaker, HLD, chronic respiratory failure on chronic oxygen, chronic CHF preserved EF, hypothyroidism, CKD III, depression, anxiety, RLS, RUDY presented to ER with C/O progressive BLE weakness CT head: No acute intracranial findings No significant electrolyte abnormality, no signs of acute infection Will obtain CT lumbar spine to rule out spinal pathology. Patient with history of pacemaker. We will have to assess pacer compatibility if considering MRI PT/OT eval CBC, BMP in a.m. (2) Chronic atrial fibrillation: Plan: Chronically anticoagulated on Eliquis Continue Eliquis, metoprolol tartrate, diltiazem (3) Chronic heart failure with preserved ejection fraction: Plan: Appears euvolemic Continue torsemide, spironolactone (4) Tachy-noni syndrome: Plan: S/p pacemaker (5) Chronic respiratory failure: Plan: Chronic bronchitis, bronchiectasis On chronic 2-3 L oxygen via nasal cannula Continue oxygen supplementation Continue home inhalers, nebulizers (6) HTN (hypertension): Plan: Continue diltiazem, metoprolol tartrate (7) Hyperlipidemia: Plan: Continue atorvastatin (8) Chronic kidney disease (CKD), stage III (moderate): Plan: Cr: 1.1. Baseline~1.1 Monitor renal functions, avoid nephrotoxic agents when possible (9) Hypothyroidism: Plan: Continue levothyroxine (10) Anxiety and depression: Plan: Continue Lexapro (11) Restless leg syndrome: Plan: Continue ropinirole (12) Sleep apnea: Plan: BiPAP at bedtime DVT Prophylaxis On Eliquis Full Code as per discussion with pt Follows with Dr King for routine care Pt was seen and care coordinated with Dr Soriano. See addendum History of Present Illness Chief Complaint: Weakness Primary Care Provider: Anna King MD Patient is 82-year-old male with PMH chronic atrial fibrillation chronically anticoagulated on Eliquis, tachybradycardia syndrome s/p pacemaker, HLD, chronic respiratory failure on chronic oxygen, chronic CHF preserved EF, hypothyroidism, CKD III, depression, anxiety, RLS, RUDY presented to ER with C/O weakness and fall. History obtained from patient, outpatient chart and inpatient chart review. Patient states uses walker at baseline. States has been having gradual bilateral leg weakness over past 2 months. He reports history of left hip replacement August [address] Witt. He states he has been having home PT since hip replacement. He reports has had a progressive decline over the past several months with increasing leg weakness. Reports legs "jumping". Started with left leg and now is bilateral legs. Also c/o numbness sensation bilateral legs over past couple of months. Denies back pain. Reports last night when he was trying to give dog treat he lost his balance causing him to fall and hit his left knee and left arm. Today was unable to ambulate. EMS had to get patient up to be transported to hospital. He states chronic cough and chronic SOB and feels those are at baseline. Denies fever/chills, diaphoresis, N/V/D/C, WILKES, dizziness, syncope, vision changes, neck pain, CP, palpitations, hemoptysis, sore throat, abdominal pain, extremity edema, rashes, urinary symptoms. Allergies Allergy/AdvReac Type Severity Reaction Status Date / Time oxycodone Allergy Unknown Flushing Verified 09/24/22 13:02 propoxyphene Allergy Unknown Flushing Verified 09/24/22 13:02 niacin AdvReac Unknown flushed Verified 09/24/22 13:02 feeling Home Medications Medication Instructions Recorded Confirmed Type albuterol sulfate 90 mcg/actuation 2 puff inhalation BID 08/03/22 11/30/22 History aerosol inhaler apixaban 2.5 mg tablet (Eliquis) 2.5 mg PO BID 08/03/22 11/30/22 History aspirin 81 mg capsule 81 mg PO QAM 08/03/22 11/30/22 History atorvastatin 20 mg tablet (Lipitor) 20 mg PO HS 08/03/22 11/30/22 History calcium carbonate 600 mg-vitamin 1 tab PO QAM 08/03/22 11/30/22 History D3 10 mcg (400 unit) tablet (Calcium 600 + D(3)) cyclosporine 0.05 % eye drops in a 1 drp ophthalmic (eye) Q12H PRN 08/03/22 11/30/22 History dropperette (Restasis) Dry Eye(S) diltiazem HCl 180 mg 180 mg PO QAM 08/03/22 11/30/22 History capsule,extended release 24 hr escitalopram oxalate 20 mg tablet 20 mg PO QAM 08/03/22 11/30/22 History (Lexapro) fluticasone 250 mcg-salmeterol 50 1 inh inhalation BID 08/03/22 11/30/22 History mcg/dose blistr powdr for inhalation (Wixela Inhub) guaifenesin 600 mg tablet, 600 mg PO BID 08/03/22 11/30/22 History extended release 12 hr (Mucinex) levothyroxine 75 mcg tablet 75 mcg PO QAM 08/03/22 11/30/22 History lutein 20 mg tablet 20 mg PO HS 08/03/22 11/30/22 History magnesium 200 mg tablet 400 mg PO HS 08/03/22 11/30/22 History metoprolol tartrate 25 mg tablet 25 mg PO BID 08/03/22 11/30/22 History mirtazapine 30 mg tablet (Remeron) 30 mg PO HS 08/03/22 11/30/22 History multivitamin 1 tab PO QAM 08/03/22 11/30/22 History olanzapine 5 mg tablet (Zyprexa) 5 mg PO HS 08/03/22 11/30/22 History potassium chloride 10 mEq 10 meq PO QAM 08/03/22 11/30/22 History capsule,extended release ropinirole 1 mg tablet 1 mg PO HS 08/03/22 11/30/22 History spironolactone 25 mg tablet 12.5 mg PO UD 08/03/22 11/30/22 History tamsulosin 0.4 mg capsule 0.4 mg PO QAM 08/03/22 11/30/22 History acetaminophen 500 mg tablet 1,000 mg PO TID pain 30 days #180 08/17/22 11/30/22 Rx (Tylenol Extra Strength) tabs sodium chloride 3 % for 3 ml inhalation BID 11/30/22 11/30/22 History nebulization torsemide 20 mg tablet 40 mg PO DAILY 11/30/22 11/30/22 History Past Med/Surg History Medical History A-fib follows w/ [facility], [place] on Eliquis Anxiety and depression Aortic stenosis Mild per 2021 ECHO Asthmatic bronchitis Breathing stable - chronic (hx of smoker) Chronic kidney disease (CKD), stage III (moderate) Chronic respiratory failure Diastolic heart failure Compensated per cardio records Encounter for pre-operative examination HTN (hypertension) Hx of pyoderma gangrenosum BLE Hyperlipidemia Hypothyroidism On anticoagulant therapy eliquis Pacemaker medtronic, last checked 05/13/22, remotely Prostate cancer Around 2013- s/p brachytherapy - Lupron q 3 months Pulmonary disease restrictive lung disease, hypoxic respiratory failure, hypercapnic respiratory failure , bronchiectasis, 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, chronic bronchiol itis vs aspiration pneumonitis per records Restless leg syndrome Sleep apnea bipap; 3 lpm hs Tachy-noni syndrome s/p pacemaker placement 2017 Surgical History History of surgery Rectal fissure repair Hx of colonoscopy Hx of tonsillectomy Hx of total hip arthroplasty RIGHT S/P placement of cardiac pacemaker Status post left hip replacement Family History Other No family history of adverse response to anesthesia Social History Smoking Status: Former smoker Smoking End Date: Quit in 1978; Second Hand Exposure: No; Do You Dip or Chew Tobacco: No; Hx Alcohol Use: No Hx Substance Use: No Preferred Language: Peruvian Communication Ability: Effective Dressage Judge Required: No Beliefs That Will Affect Care: None Current Living Situation: Spouse Feels Safe at Home: Yes Assistive Devices: BiPap, Cane, Oxygen - Continuous and Walker Review of Systems Review of Systems: All systems reviewed & are unremarkable except as noted in HPI & below Physical Exam Physical Exam: PE per Dr Soriano Results & Data Results & Data Vital Signs (Past 12 Hours) Vital Signs Temp Pulse Pulse Resp BP BP Pulse Ox 11/30/22 15:15 97 H 26 H 158/107 H 96 11/30/22 14:45 102 H 22 152/102 H 96 11/30/22 14:30 109 H 26 H 170/124 H 95 11/30/22 13:57 91 H 20 158/99 H 96 11/30/22 13:05 94 H 22 97 11/30/22 12:59 96 11/30/22 12:59 37 C 91 H 23 129/98 96 O2 Del Method O2 Flow Rate 11/30/22 15:15 Nasal Cannula 3 11/30/22 14:45 Nasal Cannula 3 11/30/22 14:30 Nasal Cannula 3 11/30/22 13:57 Nasal Cannula 3 11/30/22 13:05 Nasal Cannula 3 11/30/22 12:59 Nasal Cannula 3 11/30/22 12:59 Nasal Cannula 3 Laboratory Results Short CBC 11/30/22 Range/Units 12:58 WBC 9.36 (4.8-10.8) K/ul Hgb 13.4 L (14.0-18.0) g/dl Hct 41.0 L (42.0-52.0) % Plt Count 169 (130-400) K/uL BMP 11/30/22 12:58 Sodium 141 Potassium 4.0 Chloride 100 Carbon Dioxide 38 H BUN 19 Creatinine 1.11 Glucose 87 Calcium 9.8 Liver Function 11/30/22 Range/Units 12:58 Total Bilirubin 0.7 (0.2-1.0) mg/dl Direct Bilirubin 0.1 (0-0.2) mg/dl AST 24 (13-39) U/L ALT 21 (7-52) U/L Alkaline Phosphatase 74 (34-104) U/L Albumin 4.0 (3.4-5.0) gm/dl Urine 11/30/22 Range/Units 14:24 Urine Color Yellow Urine Appearance Clear (Clear) Urine pH 5.5 (4.5-7.5) Ur Specific [place] 1.017 (1.000-1.030) Urine Protein Negative (Negative) Urine Glucose (UA) Negative (Negative) Diagnostic Findings Chest X-Ray 11/30/22 13:04 XR chest 1V portable CLINICAL HISTORY: Sepsis TECHNIQUE: Single frontal radiograph of the chest was obtained. Comparison: Comparison is made to chest radiograph 08/05/2022 FINDINGS: Lines and tubes are stable. Calcified aortic knob is seen. Lungs are underinflated but clear. No evidence of pleural effusion or pneumothorax. IMPRESSION: No acute abnormalities and in particular no radiographic evidence of pneumonia. ACT 112: Negative or not required by law. Electronically signed by: Beka Merlos M.D. 11/30/2022 1:[address] 11/30/22 13:04 CT head/brain wo con CLINICAL HISTORY: 82 years-old Male with fall. Acute head trauma status post f all TECHNIQUE: Multiple axial CT images of the head were obtained without contrast. A dose lowering technique was utilized adhering to the principles of ALARA. CT DOSE: 625.8 mGy.cm COMPARISON: None. FINDINGS: No acute intracranial hemorrhage, midline shift, intracranial mass, hydrocephalus, territorial ischemia or abnormal extra-axial collection. Involutional changes with chronic microvascular ischemic disease. The calvarium is intact. Prior bilateral lens repair. The paranasal sinuses, mastoid air cells, and middle ear cavities are clear. IMPRESSION: No acute intracranial abnormality or calvarial fracture. ACT 112: Negative or not required by law. The above report was generated using voice recognition software. It may contain grammatical, syntax or spelling errors. Electronically signed by: Gavin Recio M.D. 11/30/2022 1:[address] 11/30/22 16:20 CT lumbar spine wo con HISTORY: 82 years-old Male BLE weakness acute pain of the lower legs COMPARISON: None TECHNIQUE: Multiple axial CT images of the MR spine were obtained without the use of IV contrast. A dose lowering technique was used consistent with the principals of ALARA. FINDINGS: Suboptimal evaluation of the central canal and neural foramina by CT technique. Severe multilevel facet arthrosis. Spondylotic spurring with posterior annular disc bulging and disc osteophyte complex formations are noted at several levels L1-L2: Mild central canal stenosis. Neural foramen are patent. L2-L3: Posterior annular disc bulge with ligamentum flavum thickening and facet arthrosis results in moderate central canal stenosis with mild left and [id number] right foraminal narrowing. L3-L4: Spondylotic spurring with posterior annular disc bulge, ligamentum flavum thickening and advanced facet arthrosis. Severe central canal stenosis with moderate right and mild to moderate left foraminal narrowing. L4-L5: Grade 1 anterolisthesis, likely degenerative. Spondylotic spurring with posterior disc osteophyte complex, ligamentum flavum thickening and advanced facet arthrosis. Severe central canal stenosis with moderate to severe right and moderate left foraminal narrowing. L5-S1: Posterior disc osteophyte complex with ligamentum flavum thickening and moderate to severe facet arthrosis. The central canal is patent. Moderate bi lateral foraminal narrowing. Mild levoscoliosis. No acute fracture, subluxation or endplate erosion identified. Mild to moderate degeneration of the SI joints. The imaged intra-abdominal structures are unremarkable. Probable left renal cyst is partially imaged. IMPRESSION: 1. No acute fracture or subluxation. 2. Levoscoliosis with multilevel degenerative changes of the above resulting in associated central canal and neural foraminal narrowing. ACT 112: Negative or not required by law. The above report was generated using voice recognition software. It may contain grammatical, syntax or spelling errors. Electronically signed by: Gavin Recio M.D. 11/30/2022 5:28 PM Supervising Physician Co-Signing Physician Notes 82-year-old man with history of hypertension, chronic diastolic heart failure, chronic hypoxic respiratory failure, asthma, bronchiectasis, depression, hypothyroidism, tachybradycardia syndrome, A-fib, RUDY on CPAP who presents to the ER with worsening weakness and ambulatory dysfunction. Also had a mechanical fall yesterday. Reports occasional jerking movement in the legs. Was initially involving just left leg but now involving both legs. Reports numbness and legs below the knee. Patient and family reports symptoms have been worsening since after initial improvement after last hip surgery Exam notable for elderly man in no distress, nasal cannula, bilateral expiratory rhonchi, jerking movements in both legs [spasms], normal range of movement across ankle and knee. Labs notable for hemoglobin of 13.4 CT head and chest x-ray were negative for any acute abnormalities. We will get PT/OT evaluation Case management to follow-up for possible rehab placement per Patient and family's request. Get CT lumbar spine
[2022-11-30] MEDS ORDERED: METOPROLOL TARTRATE 25 MG TAB PO STA (16:01)
[2022-11-30] MEDS ORDERED: ACETAMINOPHEN 500 MG TAB PO STA (16:02)
[2022-11-30] MEDS ORDERED: TORSEMIDE 10 MG TAB PO SCH (16:15)
[2022-11-30] MEDS ORDERED: TORSEMIDE 10 MG TAB PO STA (16:23)
[2022-11-30] MEDS ORDERED: dilTIAZem HCL 180 MG CAPCR PO ONE (16:43)
--- NOTE | 2022-11-30 17:30 | CT Scan Report ---
CT lumbar spine wo con HISTORY: 82 years-old Male BLE weakness acute pain of the lower legs COMPARISON: None TECHNIQUE: Multiple axial CT images of the MR spine were obtained without the use of IV contrast. A dose lowering technique was used consistent with the principals of DANIELLE. FINDINGS: Suboptimal evaluation of the central canal and neural foramina by CT technique. Severe multilevel fac et arthrosis. Spondylotic spurring with posterior annular disc bulging and disc osteophyte complex fo rmations are noted at several levels L1-L2: Mild central canal stenosis. Neural foramen are patent. L2-L3: Posterior annular disc bulge with ligamentum flavum thickening and facet arthrosis results in moderate central canal stenosis with mild left and [id number] right foraminal narrowing. L3-L4: Spondylotic spurring with posterior annular disc bulge, ligamentum flavum thickening and advan cristian facet arthrosis. Severe central canal stenosis with moderate right and mild to moderate left fora peggy narrowing. L4-L5: Grade 1 anterolisthesis, likely degenerative. Spondylotic spurring with posterior disc osteoph yte complex, ligamentum flavum thickening and advanced facet arthrosis. Severe central canal stenosis with moderate to severe right and moderate left foraminal narrowing. L5-S1: Posterior disc osteophyte complex with ligamentum flavum thickening and moderate to severe fac et arthrosis. The central canal is patent. Moderate bilateral foraminal narrowing. Mild levoscoliosis. No acute fracture, subluxation or endplate erosion identified. Mild to moderate d egeneration of the SI joints. The imaged intra-abdominal structures are unremarkable. Probable left renal cyst is partially imaged. IMPRESSION: 1. No acute fracture or subluxation. 2. Levoscoliosis with multilevel degenerative changes of the above resulting in associated central ca nal and neural foraminal narrowing. ACT 112: Negative or not required by law. The above report was generated using voice recognition software. It may contain grammatical, syntax o r spelling errors. Electronically signed by: Gavin Recio M.D. 11/30/2022 5:28 PM
[2022-11-30] MEDS ORDERED: ACETAMINOPHEN 325 MG TAB PO PRN (17:49)
[2022-11-30] MEDS ORDERED: ONDANSETRON INJ 2 MG/ML 2 ML VIAL IV PRN (17:49)
[2022-11-30] MEDS ORDERED: POLYETHYLENE (MIRALAX) 17 GM PACK PO PRN (17:49)
[2022-11-30] MEDS: ALBUTEROL HFA 8 GM INHALER INH SCH (20:29)
[2022-11-30] MEDS: SODIUM CHLOR 7% 4 ML NEB INH SCH (20:35)
[2022-11-30] MEDS: MAGNESIUM OXIDE 400 MG TAB PO SCH (21:55)
[2022-11-30] MEDS: APIXABAN 2.5 MG TAB PO SCH (21:55)
[2022-11-30] MEDS: ATORVASTATIN 20 MG TAB PO SCH (21:56)
[2022-11-30] MEDS: guaiFENesin 600 MG TABCR PO SCH (21:56)
[2022-11-30] MEDS: MIRTAZAPINE TAB 15 MG TAB PO SCH (21:56)
[2022-11-30] MEDS: OLANZapine 5 MG TABLET PO SCH (21:57)
[2022-11-30] MEDS: rOPINIRole HCL 1 MG TABLET PO SCH (21:57)
[2022-11-30] MEDS: ACETAMINOPHEN 500 MG TAB PO SCH (21:57)
[2022-11-30] MEDS: METOPROLOL TARTRATE 25 MG TAB PO SCH (23:23)
[2022-12-01] MEDS: ACETAMINOPHEN 500 MG TAB PO SCH ×3 (05:01→21:44)
[2022-12-01 07:21] LABS: Hematocrit (blood only) 42.1 % (42.0-52.0); Hemoglobin 13.4 g/dl (14.0-18.0); Mean Corpuscular Hemoglobin 30.2 pg (25.0-34.0); Mean Corpuscular Hgb Conc 31.8 g/dL (32.0-36.0); Mean Corpuscular Volume 94.8 fL (80.0-100.0); Mean Platelet Volume 11.2 fL (9.4-12.4); Platelet Count 176 K/uL (130-400); RDW Coefficient of Variation 15.1 % (11.5-14.5); RDW Standard Deviation 53.1 fL (36.4-46.3); Red Blood Count 4.44 M/uL (4.70-6.10)
[2022-12-01] MEDS: ALBUTEROL HFA 8 GM INHALER INH SCH (07:35)
[2022-12-01] MEDS: SODIUM CHLOR 7% 4 ML NEB INH SCH ×2 (07:36→19:13)
[2022-12-01 07:37] LABS: BUN Creatinine Ratio 17.6 (10-20); Calcium 9.6 mg/dl (8.6-10.3); Est GFR (African American) 58.4 ml/min; Est GFR (Non-African American) 50.3 ml/min; Potassium 3.8 mmol/L (3.5-5.1)
[2022-12-01] MEDS: guaiFENesin 600 MG TABCR PO SCH ×2 (08:46→20:54)
[2022-12-01] MEDS: ESCITALOPRAM OXALATE 20 MG TAB PO SCH (08:46)
[2022-12-01] MEDS: METOPROLOL TARTRATE 25 MG TAB PO SCH ×2 (08:46→20:56)
[2022-12-01] MEDS: APIXABAN 2.5 MG TAB PO SCH (08:47)
[2022-12-01] MEDS: ASPIRIN 81 MG ECTAB PO SCH (08:47)
[2022-12-01] MEDS: CALCIUM 600MG + VIT D 400 IU TAB PO SCH (08:47)
[2022-12-01] MEDS: TORSEMIDE 20 MG TAB PO SCH (08:47)
[2022-12-01] MEDS: dilTIAZem HCL 180 MG CAPCR PO SCH (08:47)
[2022-12-01] MEDS: POTASSIUM CHLORIDE 10 MEQ TABCR PO SCH (08:47)
[2022-12-01] MEDS: LEVOTHYROXINE SODIUM 75 MCG TABLET PO SCH (08:47)
[2022-12-01] MEDS: FLUTICASONE/VILANTEROL 200/25MCG 14 PUFFS/INHALER INH SCH (08:48)
[2022-12-01] MEDS ORDERED: dilTIAZem HCL 180 MG CAPCR PO SCH (09:00)
[2022-12-01] MEDS ORDERED: ALBUTEROL HFA 8 GM INHALER INH PRN (09:54)
[2022-12-01] MEDS: ALBUT/IPRATROP 3MG/0.5MG NEB 3 ML VIAL NEB SCH ×2 (11:07→19:13)
[2022-12-01] MEDS: TAMSULOSIN HCL 0.4 MG CAP PO SCH (11:18)
--- NOTE | 2022-12-01 13:02 | Hospitalist Progress Note ---
Date of Service December 01, 2022 Assessment & Plan (1) Weakness: Plan: Patient is 82-year-old male with PMH chronic atrial fibrillation chronically anticoagulated on Eliquis, tachybradycardia syndrome s/p pacemaker, HLD, chronic respiratory failure on chronic oxygen, chronic CHF preserved EF, hypothyroidism, CKD III, depression, anxiety, RLS, RUDY presented to ER with C/O progressive BLE weakness. CT head: No acute intracranial findings No significant electrolyte abnormality, no signs of acute infection CT lumbar Spine: IMPRESSION:1. No acute fracture or subluxation.2. Levoscoliosis with multilevel degenerative changes of the above resulting in associated central canal and neural foraminal narrowing.Will obtain CT lumbar spine to rule out spinal pathology. Patient with history of pacemaker. We will Pts Pacer is MRI compatible, will obtain MRI lumbar spine Obtain ortho spine consultation to assess pacer compatibility if considering MRI PT/OT eval, likely to need rehab no s/sx of infection, recent flu shot 3 weeks ago, clinically on strength testing in bed he is intact, but per PT note pt requires max assist Discussed with Dr. Esteves - will hold eliquis for now in event surgical intervention required (2) Chronic atrial fibrillation: Plan: Chronically anticoagulated on Eliquis Continue Eliquis, metoprolol tartrate, diltiazem chronic, stable (3) Chronic heart failure with preserved ejection fraction: Plan: Appears euvolemic Continue torsemide, spironolactone daily weight, strict intake output, low sodium diet (4) Tachy-noni syndrome: Plan: S/p pacemaker (5) Chronic respiratory failure: Plan: Chronic bronchitis, bronchiectasis On chronic 2-3 L oxygen via nasal cannula Continue oxygen supplementation Continue home inhalers, nebulizers (6) HTN (hypertension): Plan: Continue diltiazem, metoprolol tartrate chronic, stable (7) Hyperlipidemia: Plan: Continue atorvastatin (8) Chronic kidney disease (CKD), stage III (moderate): Plan: Cr: 1.1. Baseline~1.1 Monitor renal functions, avoid nephrotoxic agents when possible (9) Hypothyroidism: Plan: Continue levothyroxine (10) Anxiety and depression: Plan: Continue Lexapro (11) Restless leg syndrome: Plan: Continue ropinirole (12) Sleep apnea: Plan: BiPAP at bedtime DVT Prophylaxis On Eliquis Full Code as per discussion with pt Follows with Dr King for routine care Dispo: PT/OT consults obtained, likely to need inpatient rehab, awaiting Lumbar spine MRI and ortho spine eval Pt was seen and care coordinated with Dr Lacey. See addendum A total of 55 was spent coordinating, documenting, and providing care for this patient excluding time spent in the performance of separately billed services. This included personally viewing all current laboratories and imaging studies, medication reconciliation, outpatient chart review, and discussion with specialists. Admission and Anticipated Discharge Date Admission Date: November 30, 2022 Supervising Physician Co-Signing Physician Notes Pt seen and examined by myself, Rosy Lacey MD on the day of service. Care was coordinated with Monisha Kc PA-C. Pt stated that he was having the back pain. Had not yet worked with PT at the time of the exam, lower extremity weakness still present. MRI and ortho spine recs, appreciated. Pain control, PT/OT Otherwise as above. Subjective Patient was seen and examined at 3 832. Follow-up progressive lower extremity weakness. Of significance patient states this past summer he had left hip surgery requiring him to have an inpatient rehab stay. He felt this generally went well and has been continuing to participate in outpatient therapy services. He states he sustained a fall at home approximately 1 week ago without significant injury. Since this fall he has been having progressive weakness. He also admits to a flu shot 3 weeks ago. He lives at home with his . At baseline he is on 2 L of oxygen during the day and 3 L at night. He feels his breathing is at baseline. He denies any recent illness, fever, chills, sweats, lightheadedness, dizziness, chest pain, shortness breath at rest, nausea, vomiting or abdominal pain. He has chronic dyspnea on exertion. He denies any saddle anesthesia or bowel or bladder incontinence. He does have numbness and tingling bilaterally below the knees and states this is been ongoing for the past year. He denies any prior back surgeries or injuries. Review of Systems Review of Systems: All systems reviewed & are unremarkable except as noted in HPI & below Physical Exam Physical Exam: Constitutional: WD/WN, appears stated age, sitting up in bed, good bed mobility, Vitals as above, NAD, sitting up in bed, pleasant, conversing easily Head: Normocephalic, Atraumatic Eyes: PERRL, conjunctivae normal, anicteric sclerae ENMT: external ear and nose normal, oropharynx normal Neck: trachea midline, no thyromegaly normal visual inspection Respiratory: normal respiratory effort, bilateral wheezing and rhonchi throughout which patient states is baseline, on 2 L of oxygen saturating normally, no Rales. Normal insp/exp effort, no accessory muscle use Cardiovascular: RRR, no murmur, no edema Vessels: no JVD or carotid bruit Chest: normal inspection of chest Abdomen: normal bowel sounds, soft, nontender, no hepatosplenomegaly Musculoskeletal: no cyanosis or clubbing, extremities motor strength 5/5 Skin: no rashes, warm and dry normal turgor Neurologic: PERRL, EOMI, accommodation nl, no face palsy, no dysarthria CN's II-XI intact bilaterally and moves all extremities Psychiatric: A+Ox3, euthymic affect Lymphatic: no cervical or axillary lymphadenopathy : deferred Results & Data Results & Data Vital Signs (Past 12 Hours) Vital Signs Temp Pulse Resp BP Pulse Ox O2 Del Method O2 Flow Rate 12/01/22 09:30 Nasal Cannula 3 12/01/22 11:08 72 14 100 Nasal Cannula 2 12/01/22 07:39 93 H 15 89 L Room Air 12/01/22 06:07 36.5 C 72 16 148/73 H 94 Room Air, CPAP 3.0 FiO2 12/01/22 09:30 12/01/22 11:08 12/01/22 07:39 21 12/01/22 06:07 Medications Administered Current Inpatient Medications Acetaminophen (Acetaminophen 500 Mg Tab) 1,000 mg PO Q8 [facility] Stop: 12/30/22 21:59 Last Admin: 12/01/22 05:01 Dose: 1,000 mg Albuterol (Albut/Ipratrop 3mg/0.5mg Neb 3 Ml Vial) 3 ml NEB BIDR [facility]; Protocol Stop: 12/31/22 09:44 Last Admin: 12/01/22 11:07 Dose: 3 ml Albuterol (Albuterol Hfa 8 Gm Inhaler) 2 puffs INH BIDR PRN PRN Reason: Shortness Of Breath Or Wheezing Stop: 12/30/22 18:59 Apixaban (Apixaban 2.5 Mg Tab) 2.5 mg PO BID [facility] Stop: 12/30/22 20:59 Last Admin: 12/01/22 08:47 Dose: 2.5 mg Aspirin (Aspirin 81 Mg Ectab) 81 mg PO QAM [facility] Stop: 12/31/22 08:59 Last Admin: 12/01/22 08:47 Dose: 81 mg Atorvastatin Calcium (Atorvastatin 20 Mg Tab) 20 mg PO [facility] Stop: 12/30/22 20:59 Last Admin: 11/30/22 21:56 Dose: 20 mg Calcium/Vitamin D (Calcium 600mg + Vit D 400 Iu Tab) 1 tab PO QAM [facility] Stop: 12/31/22 08:59 Last Admin: 12/01/22 08:47 Dose: 1 tab Diltiazem HCl (D[facility]iazem Hcl 180 Mg Capcr) [facility] [place]: 12/31/22 08:59 Last Admin: 12/01/22 08:47 Dose: 180 mg Escitalopram Oxalate (Escitalopram Oxalate 20 Mg Tab) [facility] [place]: 12/31/22 08:59 Last Admin: 12/01/22 08:46 Dose: 20 mg Fluticasone/Vilanterol (Fluticasone/Vilanterol 200/25mcg 14 Puffs/Inhaler) 1 puffs INH DAILY [facility] Stop: 12/31/22 08:59 Last Admin: 12/01/22 08:48 Dose: 1 puffs Guaifenesin (Guaifenesin 600 Mg Tabcr) 600 mg PO BID [facility] Stop: 12/30/22 20:59 Last Admin: 12/01/22 08:46 Dose: 600 mg Levothyroxine Sodium (Levothyroxine Sodium 75 Mcg Tablet) 75 mcg PO QAM [facility] Stop: 12/31/22 08:59 Last Admin: 12/01/22 08:47 Dose: 75 mcg Magnesium Oxide (Magnesium Oxide 400 Mg Tab) 400 mg PO [facility] Stop: 12/30/22 20:59 Last Admin: 11/30/22 21:55 Dose: 400 mg Metoprolol Tartrate (Metoprolol Tartrate 25 Mg Tab) 25 mg PO BID [facility] Stop: 12/30/22 20:59 Last Admin: 12/01/22 08:46 Dose: 25 mg Mirtazapine (Mirtazapine Tab 15 Mg Tab) 30 mg PO [facility] Stop: 12/30/22 20:59 Last Admin: 11/30/22 21:56 Dose: 30 mg Olanzapine (Olanzapine 5 Mg Tablet) 5 mg PO HS [facility] Stop: 12/30/22 20:59 Last Admin: 11/30/22 21:57 Dose: 5 mg Ondansetron HCl (Ondansetron Inj 2 Mg/Ml 2 Ml Vial) 4 mg IV Q6H PRN PRN Reason: Nausea Stop: 12/30/22 17:48 Polyethylene Glycol (Polyethylene (Miralax) 17 Gm Pack) 17 gm PO DAILY PRN PRN Reason: Constipation Stop: 12/30/22 17:48 Potassium Chloride (Potassium Chloride 10 Meq Tabcr) 10 meq PO QAM [facility] Stop: 12/31/22 08:59 Last Admin: 12/01/22 08:47 Dose: 10 meq Ropinirole HCl (Ropinirole Hcl 1 Mg Tablet) 1 mg PO HS [facility] Stop: 12/30/22 20:59 Last Admin: 11/30/22 21:57 Dose: 1 mg Sodium Chloride (Sodium Chlor 7% 4 Ml Neb) 4 ml INH BIDR [facility] Stop: 12/30/22 18:59 Last Admin: 12/01/22 07:36 Dose: 4 ml Spironolactone (Spironolactone 12.5 Mg Tab) 12.5 mg PO MoWeFr [facility] Stop: 01/01/23 08:59 Tamsulosin HCl (Tamsulosin Hcl 0.4 Mg Cap) 0.4 mg PO QAM [facility] Stop: 12/31/22 08:59 Last Admin: 12/01/22 11:18 Dose: 0.4 mg Torsemide (Torsemide 20 Mg Tab) 40 mg PO DAILY [facility] Stop: 12/31/22 08:59 Last Admin: 12/01/22 08:47 Dose: 40 mg
[2022-12-01] MEDS ORDERED: LORazepam 2 MG/1 ML VIAL IV ONE (13:30)
[2022-12-01] MEDS: ATORVASTATIN 20 MG TAB PO SCH (20:53)
[2022-12-01] MEDS: OLANZapine 5 MG TABLET PO SCH (20:54)
[2022-12-01] MEDS: MAGNESIUM OXIDE 400 MG TAB PO SCH (20:55)
[2022-12-01] MEDS: rOPINIRole HCL 1 MG TABLET PO SCH (20:56)
[2022-12-01] MEDS: MIRTAZAPINE TAB 15 MG TAB PO SCH (20:56)
[2022-12-02] MEDS: ACETAMINOPHEN 500 MG TAB PO SCH ×3 (05:42→20:15)
[2022-12-02] MEDS: SODIUM CHLOR 7% 4 ML NEB INH SCH ×2 (07:31→19:19)
[2022-12-02] MEDS: ALBUT/IPRATROP 3MG/0.5MG NEB 3 ML VIAL NEB SCH ×2 (07:31→19:19)
[2022-12-02] MEDS: METOPROLOL TARTRATE 25 MG TAB PO SCH ×2 (09:09→20:10)
[2022-12-02] MEDS: ASPIRIN 81 MG ECTAB PO SCH (09:09)
[2022-12-02] MEDS: FLUTICASONE/VILANTEROL 200/25MCG 14 PUFFS/INHALER INH SCH (09:10)
[2022-12-02] MEDS: LEVOTHYROXINE SODIUM 75 MCG TABLET PO SCH (09:10)
[2022-12-02] MEDS: guaiFENesin 600 MG TABCR PO SCH ×2 (09:10→20:11)
[2022-12-02] MEDS: SPIRONOLACTONE 12.5 MG TAB PO SCH (09:10)
[2022-12-02] MEDS: TORSEMIDE 20 MG TAB PO SCH (09:10)
[2022-12-02] MEDS: ESCITALOPRAM OXALATE 20 MG TAB PO SCH (09:10)
[2022-12-02] MEDS: TAMSULOSIN HCL 0.4 MG CAP PO SCH (09:10)
[2022-12-02] MEDS: dilTIAZem HCL 180 MG CAPCR PO SCH (09:10)
[2022-12-02] MEDS: CALCIUM 600MG + VIT D 400 IU TAB PO SCH (09:10)
[2022-12-02] MEDS: POTASSIUM CHLORIDE 10 MEQ TABCR PO SCH (09:12)
--- NOTE | 2022-12-02 11:43 | Hospitalist Progress Note ---
Date of Service December 02, 2022 Assessment & Plan (1) Lumbar spinal stenosis: (2) Weakness: Plan: Patient is 82-year-old male with PMH chronic atrial fibrillation chronically anticoagulated on Eliquis, tachybradycardia syndrome s/p pacemaker, HLD, chronic respiratory failure on chronic oxygen, chronic CHF preserved EF, hypothyroidism, CKD III, depression, anxiety, RLS, RUDY presented to ER with C/O progressive BLE weakness. CT head: No acute intracranial findings No significant electrolyte abnormality, no signs of acute infection CT lumbar Spine: IMPRESSION:1. No acute fracture or subluxation.2. Levoscoliosis with multilevel degenerative changes of the above resulting in associated central canal and neural foraminal narrowing. Patient with MRI compatible pacemaker Obtain MRI this morning Orthospine consultation post MRI results Discussed with Dr. Esteves on 12/01 and Eliquis has been placed on hold until orthospine reads MRI. Last dose of Eliquis was a.m. of 12/01/2022 PT/OT eval, likely to need rehab no s/sx of infection, recent flu shot 3 weeks ago, clinically on strength testing in bed he is intact, but per PT note pt requires max assist MRI reviewed Discussed with Dr. Esteves and plan is for patient to undergo surgical intervention tomorrow (3) Chronic atrial fibrillation: Plan: Chronically anticoagulated on Eliquis Eliquis on hold until determine if patient would require procedure, plan for OR tomorrow cont metoprolol tartrate, diltiazem chronic, stable (4) Chronic heart failure with preserved ejection fraction: Plan: Appears euvolemic Continue torsemide, spironolactone daily weight, strict intake output, low sodium diet (5) Tachy-noni syndrome: Plan: S/p pacemaker (6) Chronic respiratory failure: Plan: Chronic bronchitis, bronchiectasis On chronic 2-3 L oxygen via nasal cannula Continue oxygen supplementation Continue home inhalers, nebulizers (7) HTN (hypertension): Plan: Continue diltiazem, metoprolol tartrate chronic, stable (8) Hyperlipidemia: Plan: Continue atorvastatin (9) Chronic kidney disease (CKD), stage III (moderate): Plan: Cr: 1.1. Baseline~1.1 Monitor renal functions, avoid nephrotoxic agents when possible (10) Hypothyroidism: Plan: Continue levothyroxine (11) Anxiety and depression: Plan: Continue Lexapro (12) Restless leg syndrome: Plan: Continue ropinirole (13) Sleep apnea: Plan: BiPAP at bedtime DVT Prophylaxis Eliquis placed on hold, initially started lovenox but will hold to prep for surgery in am. Full Code as per discussion with pt Follows with Dr King for routine care Dispo: PT/OT consults obtained, likely to need inpatient rehab, awaiting Lumbar spine MRI and ortho spine eval Pt was seen and care coordinated with Dr Askew. See addendum A total of 55 was spent coordinating, documenting, and providing care for this patient excluding time spent in the performance of separately billed services. This included personally viewing all current laboratories and imaging studies, medication reconciliation, outpatient chart review, and discussion with specialists. Admission and Anticipated Discharge Date Admission Date: December 02, 2022 Supervising Physician Co-Signing Physician Notes I have seen and discussed the case with the collaborating CONNOR. I agree with the above H&P. I have reviewed and confirmed the patients medical history, the findings on physical examination, and the patients diagnosis and treatment plan with De RYAN and agree with the information documented. In short, Mr. May is an 82 year old gentleman with history of lumbar stenosis and general weakness. Plan for surgical intervention with Dr. Esteves tomorrow, 12/03. Rest of plan as above. Subjective Patient was seen and examined at 3 832. Follow-up progressive lower extremity weakness. Patient continues to have lower extremity weakness. He otherwise feels okay. He feels his breathing is at baseline. He is to undergo MRI this morning. He denies fever, chills, sweats, lightheadedness, dizziness, chest pain, shortness of breath, nausea or vomiting. He is tolerating diet. Review of Systems Review of Systems: All systems reviewed & are unremarkable except as noted in HPI & below Physical Exam Physical Exam: Gen: WD/WN, elderly, male, sitting up at bedside, hard of hearing, NAD, A&O x3 HEENT: Normocephalic, atraumatic, conjunctivae moist, sclerae anicteric, mucous membranes moist. Lung: Clear to Auscultation bilaterally, no wheezes/rales/rhonchi, on oxygen 3 L Heart: IRR/IRR, no murmurs, rubs, or gallops Abdomen: Soft, NT, ND +BS x 4 Extremities: Very trace edema Skin: Warm, no rash, negative turgor. Results & Data Results & Data Vital Signs (Past 12 Hours) Vital Signs Temp Pulse Resp BP Pulse Ox O2 Del Method O2 Flow Rate 12/02/22 09:26 Nasal Cannula 3 12/02/22 07:32 88 20 94 Nasal Cannula 4 12/02/22 07:22 36.5 C 86 18 130/85 95 Nasal Cannula 4 Medications Administered Current Inpatient Medications Acetaminophen (Acetaminophen 500 Mg Tab) 1,000 mg PO Q8 [facility] Stop: 12/30/22 21:59 Last Admin: 12/02/22 05:42 Dose: 1,000 mg Albuterol (Albut/Ipratrop 3mg/0.5mg Neb 3 Ml Vial) 3 ml NEB BIDR [facility]; Protocol Stop: 12/31/22 09:44 Last Admin: 12/02/22 07:31 Dose: 3 ml Albuterol (Albuterol Hfa 8 Gm Inhaler) 2 puffs INH BIDR PRN PRN Reason: Shortness Of Breath Or Wheezing Stop: 12/30/22 18:59 Apixaban (Apixaban 2.5 Mg Tab) 2.5 mg PO BID [facility] Stop: 12/30/22 20:59 Last Admin: 12/01/22 08:47 Dose: 2.5 mg Aspirin (Aspirin 81 Mg Ectab) 81 mg PO QAM [facility] Stop: 12/31/22 08:59 Last Admin: 12/02/22 09:09 Dose: 81 mg Atorvastatin Calcium (Atorvastatin 20 Mg Tab) 20 mg PO HS [facility] Stop: 12/30/22 20:59 Last Admin: 12/01/22 20:53 Dose: 20 mg Calcium/Vitamin D (Calcium 600mg + Vit D 400 Iu Tab) 1 tab PO QAM [facility] Stop: 12/31/22 08:59 Last Admin: 12/02/22 09:10 Dose: 1 tab Diltiazem HCl (Diltiazem Hcl 180 Mg Capcr) 180 mg PO QAM [facility] Stop: 12/31/22 08:59 Last Admin: 12/02/22 09:10 Dose: 180 mg Enoxaparin Sodium (Enoxaparin Inj 40 Mg/0.4 Ml Syr) 40 mg SQ [facility] Stop: 01/01/23 20:59 Escitalopram Oxalate (Escitalopram Oxalate 20 Mg Tab) 20 mg PO QAM [facility] Stop: 12/31/22 08:59 Last Admin: 12/02/22 09:10 Dose: 20 mg Fluticasone/Vilanterol (Fluticasone/Vilanterol 200/25mcg 14 Puffs/Inhaler) 1 puffs INH DAILY [facility] Stop: 12/31/22 08:59 Last Admin: 12/02/22 09:10 Dose: 1 puffs Guaifenesin (Guaifenesin 600 Mg Tabcr) 600 mg PO BID [facility] Stop: 12/30/22 20:59 Last Admin: 12/02/22 09:10 Dose: 600 mg Levothyroxine Sodium (Levothyroxine Sodium 75 Mcg Tablet) 75 mcg PO DAILYBB [facility] Stop: 12/31/22 08:59 Magnesium Oxide (Magnesium Oxide 400 Mg Tab) 400 mg PO HS [facility] Stop: 12/30/22 20:59 Last Admin: 12/01/22 20:55 Dose: 400 mg Metoprolol Tartrate (Metoprolol Tartrate 25 Mg Tab) 25 mg PO BID [facility] Stop: 12/30/22 20:59 Last Admin: 12/02/22 09:09 Dose: 25 mg Mirtazapine (Mirtazapine Tab 15 Mg Tab) 30 mg PO HS [facility] Stop: 12/30/22 20:59 Last Admin: 12/01/22 20:56 Dose: 30 mg Olanzapine (Olanzapine 5 Mg Tablet) 5 mg PO HS [facility] Stop: 12/30/22 20:59 Last Admin: 12/01/22 20:54 Dose: 5 mg Ondansetron HCl (Ondansetron Inj 2 Mg/Ml 2 Ml Vial) 4 mg IV Q6H PRN PRN Reason: Nausea Stop: 12/30/22 17:48 Polyethylene Glycol (Polyethylene (Miralax) 17 Gm Pack) 17 gm PO DAILY PRN PRN Reason: Constipation Stop: 12/30/22 17:48 Potassium Chloride (Potassium Chloride 10 Meq Tabcr) 10 meq PO QAM [facility] Stop: 12/31/22 08:59 Last Admin: 12/02/22 09:12 Dose: 10 meq Ropinirole HCl (Ropinirole Hcl 1 Mg Tablet) 1 mg PO HS [facility] Stop: 12/30/22 20:59 Last Admin: 12/01/22 20:56 Dose: 1 mg Sodium Chloride (Sodium Chlor 7% 4 Ml Neb) 4 ml INH BIDR [facility] Stop: 12/30/22 18:59 Last Admin: 12/02/22 07:31 Dose: 4 ml Spironolactone (Spironolactone 12.5 Mg Tab) 12.5 mg PO MoWeFr [facility] Stop: 01/01/23 08:59 Last Admin: 12/02/22 09:10 Dose: 12.5 mg Tamsulosin HCl (Tamsulosin Hcl 0.4 Mg Cap) 0.4 mg PO QAM [facility] Stop: 12/31/22 08:59 Last Admin: 12/02/22 09:10 Dose: 0.4 mg Torsemide (Torsemide 20 Mg Tab) 40 mg PO DAILY [facility] Stop: 12/31/22 08:59 Last Admin: 12/02/22 09:10 Dose: 40 mg
[2022-12-02] MEDS ORDERED: ENOXAPARIN 100 MG/1ML SYR SQ SCH (12:00)
[2022-12-02] MEDS ORDERED: LORazepam 2 MG/1 ML VIAL ONE (12:11)
--- NOTE | 2022-12-02 14:32 | Magnetic Resonance Report ---
MR lumbar spine wo con CLINICAL HISTORY: 82 years-old Male with lumbar stenosis, b/l weakness. Chronic low back pain COMPARISON: CT lumbar spine 11/30/2022. TECHNIQUE: Multiplanar, multi sequence MRI of the lumbar spine was performed without intravenous cont rast. FINDINGS: Motion degraded exam. No acute fracture, subluxation or endplate erosion. Mild Modic type I endplate degeneration at L5-S1. Conus medullaris terminates at L1-L2. Severe multilevel facet arthrosis. Spond ylotic spurring with posterior annular disc bulging and disc osteophyte complex formations are noted at several levels. Suboptimal evaluation of the central canal and neural foramen secondary to the mot ion artifact. Marrow edema with surrounding soft tissue edema involves the left L4-L5 pedicles and fa cets, likely degenerative/reactive. Partially imaged probable cyst of the left kidney. L1-L2: Mild intervertebral disc space narrowing with spondylotic spurring and small circumferential a nnular disc bulging. Mild central canal stenosis. Mild bilateral neural foraminal narrowing. L2-L3: Moderate intervertebral disc space narrowing. Posterior annular disc bulge with ligamentum fla vum thickening and facet arthrosis results in moderate central canal stenosis with mild to moderate b ilateral foraminal narrowing. AP dimension of the thecal sac measures 7.5 mm. L3-L4: Moderate intervertebral disc space narrowing. Spondylotic spurring with posterior annular disc bulge, ligamentum flavum thickening and advanced facet arthrosis. Severe central canal stenosis with severe right and moderate left foraminal narrowing. AP dimension of the thecal sac measures 4 mm. Se ernie narrowing of the lateral recesses. L4-L5: Moderate intervertebral disc space narrowing. Grade 1 anterolisthesis, likely degenerative. Sp ondylotic spurring with posterior disc osteophyte complex, ligamentum flavum thickening and advanced facet arthrosis. Moderate central canal stenosis with AP dimension of the thecal sac measuring 8 mm. There is at least moderate narrowing of the lateral recesses. Severe right with moderate to severe le ft foraminal narrowing. L5-S1: Mild to moderate intervertebral disc space narrowing. Posterior disc osteophyte complex with l igamentum flavum thickening and moderate to severe facet arthrosis. The central canal is patent. Mild to moderate bilateral foraminal narrowing. Mild levoscoliosis. IMPRESSION: 1. Motion degraded exam. 2. Levoscoliosis with multilevel degenerative changes of the above resulting in associated central ca nal and neural foraminal narrowing. 3. No acute fracture. ACT 112: Negative or not required by law. The above report was generated using voice recognition software. It may contain grammatical, syntax o r spelling errors. Dictated: 12/02/2022 1:53 PM Transcribed: 12/02/2022 2:29 PM Compa [id number] [id number] Electronically signed by: Gavin Recio M.D. 12/02/2022 2:30 PM
[2022-12-02] MEDS: MAGNESIUM OXIDE 400 MG TAB PO SCH (20:09)
[2022-12-02] MEDS: MIRTAZAPINE TAB 15 MG TAB PO SCH (20:09)
[2022-12-02] MEDS: ATORVASTATIN 20 MG TAB PO SCH (20:10)
[2022-12-02] MEDS: rOPINIRole HCL 1 MG TABLET PO SCH (20:11)
[2022-12-02] MEDS: OLANZapine 5 MG TABLET PO SCH (20:11)
[2022-12-02] MEDS ORDERED: ENOXAPARIN INJ 40 MG/0.4 ML SYR SQ SCH (21:00)
[2022-12-02] MEDS ORDERED: ENOXAPARIN 1 MG/KG SQ SCH (21:00)
--- NOTE | 2022-12-02 21:18 | Electrocardiogram Report ---
Test Reason : Blood Pressure : / mmHG Vent. Rate : 094 BPM Atrial Rate : 000 BPM P-R Int : 000 ms QRS Dur : 136 ms QT Int : 376 ms P-R-T Axes : 000 -01 -12 degrees QTc Int : 470 ms Atrial fibrillation with occasional ventricular-paced complexes Right bundle branch block Abnormal ECG When compared with ECG of 05-AUG-2022 11:09, Vent. rate has increased BY 29 BPM Confirmed by Grover Gomez ([id number]) on 12/02/2022 9:18:08 PM Referred By: REFERRED SELF Confirmed By:Grover Gomez
[2022-12-03] MEDS: LEVOTHYROXINE SODIUM 75 MCG TABLET PO SCH (05:33)
[2022-12-03] MEDS: ACETAMINOPHEN 500 MG TAB PO SCH ×3 (05:37→21:07)
[2022-12-03] MEDS: SODIUM CHLOR 7% 4 ML NEB INH SCH ×2 (07:13→20:02)
[2022-12-03] MEDS: ALBUT/IPRATROP 3MG/0.5MG NEB 3 ML VIAL NEB SCH ×2 (07:25→20:02)
--- NOTE | 2022-12-03 07:50 | Orthopedic Consultation ---
Date of Consultation December 03, 2022 Assessment & Plan (1) Lumbar spinal stenosis: Assessment severe lumbar spinal stenosis. CAT scan and MRIs of the lumbar spine available for review. They demonstrate severe lumbar spinal stenosis specifically at L3-L4 L4-5. Plan at this point he has been off Eliquis for now 48 hours and recommending urgent decompression and fusion of L3-L4 L4-5. He will require aggressive facetectomies and foraminotomies to address his neural compression. Risk benefits pros cons and alternatives were outlined detail. Risk include but not limited to from anesthesia blindness stroke paralysis nerve damage blood loss requiring transfusion infection requiring reoperation. Best with a marked improvement of his neurogenic claudication and with time improvement in his strength and ability to ambulate. He is n.p.o. with plan for surgery today. History of Present Illness Reason for Consultation: Bilateral leg weakness and numbness Attending Physician: Maryam Askew MD History of Present Illness This is an 82-year-old male who has a marked decline in status over the past several weeks he is status post left total hip arthroplasty but as he is beginning to try to rehab he has noticed worsening weakness and inability to ambulate. He was admitted to the hospital as he was unable to walk. Imaging lumbar spine obtained demonstrates severe spinal stenosis. Allergies Allergy/AdvReac Type Severity Reaction Status Date / Time oxycodone Allergy Unknown Flushing Verified 09/24/22 13:02 propoxyphene Allergy Unknown Flushing Verified 09/24/22 13:02 niacin AdvReac Unknown flushed Verified 09/24/22 13:02 feeling Home Medications Medication Instructions Recorded Confirmed Type albuterol sulfate 90 mcg/actuation 2 puff inhalation BID 08/03/22 11/30/22 History aerosol inhaler apixaban 2.5 mg tablet (Eliquis) 2.5 mg PO BID 08/03/22 11/30/22 History aspirin 81 mg capsule 81 mg PO QAM 08/03/22 11/30/22 History atorvastatin 20 mg tablet (Lipitor) 20 mg PO HS 08/03/22 11/30/22 History calcium carbonate 600 mg-vitamin 1 tab PO QAM 08/03/22 11/30/22 History D3 10 mcg (400 unit) tablet (Calcium 600 + D(3)) cyclosporine 0.05 % eye drops in a 1 drp ophthalmic (eye) Q12H PRN 08/03/22 11/30/22 History dropperette (Restasis) Dry Eye(S) diltiazem HCl 180 mg 180 mg PO QAM 08/03/22 11/30/22 History capsule,extended release 24 hr escitalopram oxalate 20 mg tablet 20 mg PO QAM 08/03/22 11/30/22 History (Lexapro) fluticasone 250 mcg-salmeterol 50 1 inh inhalation BID 08/03/22 11/30/22 History mcg/dose blistr powdr for inhalation (Wixela Inhub) guaifenesin 600 mg tablet, 600 mg PO BID 08/03/22 11/30/22 History extended release 12 hr (Mucinex) levothyroxine 75 mcg tablet 75 mcg PO QAM 08/03/22 11/30/22 History lutein 20 mg tablet 20 mg PO HS 08/03/22 11/30/22 History magnesium 200 mg tablet 400 mg PO HS 08/03/22 11/30/22 History metoprolol tartrate 25 mg tablet 25 mg PO BID 08/03/22 11/30/22 History mirtazapine 30 mg tablet (Remeron) 30 mg PO HS 08/03/22 11/30/22 History multivitamin 1 tab PO QAM 08/03/22 11/30/22 History olanzapine 5 mg tablet (Zyprexa) 5 mg PO HS 08/03/22 11/30/22 History potassium chloride 10 mEq 10 meq PO QAM 08/03/22 11/30/22 History capsule,extended release ropinirole 1 mg tablet 1 mg PO HS 08/03/22 11/30/22 History spironolactone 25 mg tablet 12.5 mg PO UD 08/03/22 11/30/22 History tamsulosin 0.4 mg capsule 0.4 mg PO QAM 08/03/22 11/30/22 History acetaminophen 500 mg tablet 1,000 mg PO TID pain 30 days #180 08/17/22 11/30/22 Rx (Tylenol Extra Strength) tabs sodium chloride 3 % for 3 ml inhalation BID 11/30/22 11/30/22 History nebulization torsemide 20 mg tablet 40 mg PO DAILY 11/30/22 11/30/22 History Patient History Medical History A-fib follows w/ [facility], [facility] Parrish on Eliquis Anxiety and depression Aortic stenosis Mild per 2021 ECHO Asthmatic bronchitis Breathing stable - chronic (hx of smoker) Chronic kidney disease (CKD), stage III (moderate) Chronic respiratory failure Diastolic heart failure Compensated per cardio records Encounter for pre-operative examination HTN (hypertension) Hx of pyoderma gangrenosum BLE Hyperlipidemia Hypothyroidism On anticoagulant therapy eliquis Pacemaker medtronic, last checked 05/13/22, remotely Prostate cancer Around 2013- s/p brachytherapy - Lupron q 3 months Pulmonary disease restrictive lung disease, hypoxic respiratory failure, hypercapnic respiratory failure , bronchiectasis, 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, 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 per records Restless leg syndrome Sleep apnea bipap; 3 lpm hs Tachy-noni syndrome s/p pacemaker placement 2017 Surgical History History of surgery Rectal fissure repair Hx of colonoscopy Hx of tonsillectomy Hx of total hip arthroplasty RIGHT S/P placement of cardiac pacemaker Status post left hip replacement Family History Other No family history of adverse response to anesthesia Social History Smoking Status: Never smoker Smoking End Date: Quit in 1978; Second Hand Exposure: No; Do You Dip or Chew Tobacco: No; Hx Alcohol Use: No Hx Substance Use: No Preferred Language: Indonesian Communication Ability: Effective Diplomatic Interpreter/Translator Required: No Beliefs That Will Affect Care: None Current Living Situation: Spouse Other Information That Helps Us Care for You: No Feels Safe at Home: Yes Safety Concerns: Feels Safe At This Time Assistive Devices: Cane, Oxygen - Continuous and Walker Physical Exam Physical Exam: On exam he is in bed. He demonstrates reasonable plantarflexion dorsiflexion hip flexion. Sensory is somewhat diminished but intact bilateral extremities deep tendon reflexes diminished. Results & Data Vital Signs (Past 12 Hours) Vital Signs Temp Pulse Resp BP Pulse Ox O2 Del Method O2 Flow Rate 12/03/22 07:14 78 18 95 Nasal Cannula 4 12/03/22 07:03 36.4 C L 74 18 143/81 H 95 Nasal Cannula 3.0 12/02/22 20:00 Nasal Cannula 4 12/02/22 20:07 36.5 C 85 16 122/75 93 Nasal Cannula 4
[2022-12-03] MEDS: ASPIRIN 81 MG ECTAB PO SCH (08:20)
[2022-12-03] MEDS: CALCIUM 600MG + VIT D 400 IU TAB PO SCH (08:20)
[2022-12-03] MEDS: dilTIAZem HCL 180 MG CAPCR PO SCH (08:21)
[2022-12-03] MEDS: METOPROLOL TARTRATE 25 MG TAB PO SCH ×2 (08:22→21:05)
[2022-12-03] MEDS: ESCITALOPRAM OXALATE 20 MG TAB PO SCH (08:22)
[2022-12-03] MEDS: TAMSULOSIN HCL 0.4 MG CAP PO SCH (08:22)
[2022-12-03] MEDS: FLUTICASONE/VILANTEROL 200/25MCG 14 PUFFS/INHALER INH SCH (08:23)
[2022-12-03] MEDS: TORSEMIDE 20 MG TAB PO SCH (08:23)
[2022-12-03] MEDS: guaiFENesin 600 MG TABCR PO SCH ×2 (08:23→21:06)
[2022-12-03 08:24] LABS: Hematocrit (blood only) 40.5 % (42.0-52.0); Hemoglobin 13.4 g/dl (14.0-18.0); Mean Corpuscular Hemoglobin 30.2 pg (25.0-34.0); Mean Corpuscular Hgb Conc 33.1 g/dL (32.0-36.0); Mean Corpuscular Volume 91.4 fL (80.0-100.0); Mean Platelet Volume 11.3 fL (9.4-12.4); Platelet Count 152 K/uL (130-400); RDW Coefficient of Variation 15.2 % (11.5-14.5); RDW Standard Deviation 51.4 fL (36.4-46.3); Red Blood Count 4.43 M/uL (4.70-6.10)
[2022-12-03] MEDS: POTASSIUM CHLORIDE 10 MEQ TABCR PO SCH (08:27)
[2022-12-03 08:48] LABS: BUN Creatinine Ratio 21.6 (10-20); Calcium 9.3 mg/dl (8.6-10.3); Creatinine Clr Calc Pharmacy 54.5 ml/min; Est GFR (African American) 61.8 ml/min; Est GFR (Non-African American) 53.3 ml/min; Potassium 3.9 mmol/L (3.5-5.1)
[2022-12-03] MEDS ORDERED: fentaNYL citrate PF 100 MCG/2 ML VIAL ONE ×2 (11:44→14:23)
[2022-12-03] MEDS: LACTATED RINGER'S 1,000 ML IV SCH ×4 (11:50→22:34)
[2022-12-03] MEDS ORDERED: ePHEDrine sulfate 50 MG/ML AMP IV PRN (12:03)
[2022-12-03] MEDS ORDERED: HYDROmorphone INJ 1 MG/ML SYRINGE IV PRN (12:03)
[2022-12-03] MEDS ORDERED: ATROPINE SULFATE 0.1 MG/ML 10ML SYR IV PRN (12:03)
[2022-12-03] MEDS ORDERED: ONDANSETRON INJ 2 MG/ML 2 ML VIAL IV PRN ×2 (12:03→17:13)
--- NOTE | 2022-12-03 12:07 | Anesthesiology Consultation ---
Date of Service December 03, 2022 Assessment & Plan Chart Review Chart Review: Acceptable Risk for Surgery and Patient NOT seen in Pre Admission Testing Consults Requested none ASA ASA4 Proposed Anesthesia Anesthesia Type: General Risk / Benefits Reviewed With: PT / POA / Parent / Guardian, Accepts Plan and Informed Consent Obtained History Surgery Operation Date: 12/03/22 11:55 Proposed Procedures p L3-L5 Decompression and Fusion - Randolph Esteves, Height/Weight Height: 5 ft 11 in Weight: 98.4 kg Allergies Allergy/AdvReac Type Severity Reaction Status Date / Time oxycodone Allergy Unknown Flushing Verified 09/24/22 13:02 propoxyphene Allergy Unknown Flushing Verified 09/24/22 13:02 niacin AdvReac Unknown flushed Verified 09/24/22 13:02 feeling Medications Home Medications Medication Instructions Recorded Confirmed Last Taken albuterol sulfate 90 mcg/actuation 2 puff inhalation BID 08/03/22 11/30/22 08/19/22 04:00 aerosol inhaler apixaban 2.5 mg tablet (Eliquis) 2.5 mg PO BID 08/03/22 11/30/22 11/29/22 aspirin 81 mg capsule 81 mg PO QAM 08/03/22 11/30/22 08/19/22 04:00 atorvastatin 20 mg tablet (Lipitor) 20 mg PO HS 08/03/22 11/30/22 08/18/22 21:00 calcium carbonate 600 mg-vitamin 1 tab PO QAM 08/03/22 11/30/22 08/18/22 21:00 D3 10 mcg (400 unit) tablet (Calcium 600 + D(3)) cyclosporine 0.05 % eye drops in a 1 drp ophthalmic (eye) Q12H PRN 08/03/22 11/30/22 Unknown dropperette (Restasis) Dry Eye(S) diltiazem HCl 180 mg 180 mg PO QAM 08/03/22 11/30/22 11/29/22 capsule,extended release 24 hr escitalopram oxalate 20 mg tablet 20 mg PO QAM 08/03/22 11/30/22 11/29/22 (Lexapro) fluticasone 250 mcg-salmeterol 50 1 inh inhalation BID 08/03/22 11/30/22 08/19/22 04:00 mcg/dose blistr powdr for inhalation (Kristen Inhroosevelt) guaifenesin 600 mg tablet, 600 mg PO BID 08/03/22 11/30/22 08/19/22 04:00 extended release 12 hr (Mucinex) levothyroxine 75 mcg tablet 75 mcg PO QAM 08/03/22 11/30/22 11/30/22 lutein 20 mg tablet 20 mg PO HS 08/03/22 11/30/22 08/14/22 magnesium 200 mg tablet 400 mg PO HS 08/03/22 11/30/22 08/14/22 metoprolol tartrate 25 mg tablet 25 mg PO BID 08/03/22 11/30/22 11/29/22 mirtazapine 30 mg tablet (Remeron) 30 mg PO 08/03/22 11/30/22 11/29/22 multivitamin 1 tab PO QAM 08/03/22 11/30/22 08/14/22 olanzapine 5 mg tablet (Zyprexa) 5 mg PO 08/03/22 11/30/22 11/29/22 potassium chloride 10 mEq 10 meq PO QAM 08/03/22 11/30/22 11/29/22 capsule,extended release ropinirole 1 mg tablet 1 mg PO 08/03/22 11/30/22 11/29/22 spironolactone 25 mg tablet 12.5 mg PO 08/03/22 11/30/22 11/27/22 tamsulosin 0.4 mg capsule 0.4 mg PO [facility] 08/03/22 11/30/22 08/19/22 04:00 acetaminophen 500 mg tablet 1,000 mg PO TID pain 30 days #180 08/17/22 11/30/22 08/16/22 (Tylenol Extra Strength) tabs sodium chloride 3 % for 3 ml inhalation BID 11/30/22 11/30/22 Unknown nebulization torsemide 20 mg tablet 40 mg PO DAILY 11/30/22 11/30/22 11/29/22 Active Medications Generic Name Dose Route Start Last Admin Trade Name Freq PRN Reason Stop Dose Admin Acetaminophen 1,000 mg 11/30/22 22:00 12/03/22 05:37 Acetaminophen 500 Mg Tab PO 12/30/22 21:59 1,000 mg Q8 IRMA Administration Albuterol 3 ml 12/01/22 09:45 12/03/22 07:25 Albut/Ipratrop 3mg/0.5mg Neb 3 Ml Vial NEB 12/31/22 09:44 3 ml BIDR IRMA Administration Protocol Apixaban 2.5 mg 11/30/22 21:00 12/01/22 08:47 Apixaban 2.5 Mg Tab PO 12/30/22 20:59 2.5 mg BID IRMA Administration Aspirin 81 mg 12/01/22 09:00 12/03/22 08:20 Aspirin 81 Mg Ectab PO 12/31/22 08:59 81 mg QAM IRMA Administration Atorvastatin Calcium 20 mg 11/30/22 21:00 12/02/22 20:10 Atorvastatin 20 Mg Tab PO 12/30/22 20:59 20 mg HS IRMA Administration Calcium/Vitamin D 1 tab 12/01/22 09:00 12/03/22 08:20 Calcium 600mg + Vit D 400 Iu Tab PO 12/31/22 08:59 1 tab QAM IRMA Administration Diltiazem HCl 180 mg 12/01/22 09:00 12/03/22 08:21 Diltiazem Hcl 180 Mg Capcr PO 12/31/22 08:59 180 mg QAM IRMA Administration Escitalopram Oxalate 20 mg 12/01/22 09:00 12/03/22 08:22 Escitalopram Oxalate 20 Mg Tab PO 12/31/22 08:59 20 mg QAM IRMA Administration Fluticasone/Vilanterol 1 puffs 12/01/22 09:00 12/03/22 08:23 Fluticasone/Vilanterol 200/25mcg 14 Puffs/Inhaler INH 12/31/22 08:59 1 puffs DAILY IRMA Administration Guaifenesin 600 mg 11/30/22 21:00 12/03/22 08:23 Guaifenesin 600 Mg Tabcr PO 12/30/22 20:59 600 mg BID IRMA Administration Lactated Ringer's 1,000 mls @ 15 mls/hr 12/03/22 12:00 12/03/22 11:50 Lr IV 01/02/23 11:59 15 mls/hr .Q24H IRMA Administration Levothyroxine Sodium 75 mcg 12/03/22 06:30 12/03/22 05:33 Levothyroxine Sodium 75 Mcg Tablet PO 12/31/22 08:59 75 mcg DAILYBB IRMA Administration Magnesium Oxide 400 mg 11/30/22 21:00 12/02/22 20:09 Magnesium Oxide 400 Mg Tab PO 12/30/22 20:59 400 mg HS IRMA Administration Metoprolol Tartrate 25 mg 11/30/22 21:00 12/03/22 08:22 Metoprolol Tartrate 25 Mg Tab PO 12/30/22 20:59 25 mg BID IRMA Administration Mirtazapine 30 mg 11/30/22 21:00 12/02/22 20:09 Mirtazapine Tab 15 Mg Tab PO 12/30/22 20:59 30 mg HS IRMA Administration Olanzapine 5 mg 11/30/22 21:00 12/02/22 20:11 Olanzapine 5 Mg Tablet PO 12/30/22 20:59 5 mg HS IRMA Administration Potassium Chloride 10 meq 12/01/22 09:00 12/03/22 08:27 Potassium Chloride 10 Meq Tabcr PO 12/31/22 08:59 10 meq QAM IRMA Administration Ropinirole HCl 1 mg 11/30/22 21:00 12/02/22 20:11 Ropinirole Hcl 1 Mg Tablet PO 12/30/22 20:59 1 mg HS IRMA Administration Sodium Chloride 4 ml 11/30/22 19:00 12/03/22 07:13 Sodium Chlor 7% 4 Ml Neb INH 12/30/22 18:59 4 ml BIDR IRMA Administration Spironolactone 12.5 mg 12/02/22 09:00 12/02/22 09:10 Spironolactone 12.5 Mg Tab PO 01/01/23 08:59 12.5 mg MoWeFr IRMA Administration Tamsulosin HCl 0.4 mg 12/01/22 09:00 12/03/22 08:22 Tamsulosin Hcl 0.4 Mg Cap PO 12/31/22 08:59 0.4 mg QAM IRMA Administration Torsemide 40 mg 12/01/22 09:00 12/03/22 08:23 Torsemide 20 Mg Tab PO 12/31/22 08:59 40 mg DAILY IRMA Administration NPO Date Last Intake of Fluids: 12/03/22 Time Last Intake of Fluids: 08:20 Last Intake of Fluids Comment: sip with meds Date Last Intake of Solids: 12/02/22 Time Last Intake of Solids: 20:00 Past Medical History Medical History A-fib follows w/ [facility] cardio, [place] Francois on Eliquis Anxiety and depression Aortic stenosis Mild per 2021 ECHO Asthmatic bronchitis Breathing stable - chronic (hx of smoker) Chronic kidney disease (CKD), stage III (moderate) Chronic respiratory failure Diastolic heart failure Compensated per cardio records Encounter for pre-operative examination HTN (hypertension) Hx of pyoderma gangrenosum BLE Hyperlipidemia Hypothyroidism On anticoagulant therapy eliquis Pacemaker medtronic, last checked 05/13/22, remotely Prostate cancer Around 2013- s/p brachytherapy - Lupron q 3 months Pulmonary disease restrictive lung disease, hypoxic respiratory failure, hypercapnic respiratory failure , bronchiectasis, 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, chronic bronchioli tis vs aspiration pneumonitis per records Restless leg syndrome Sleep apnea bipap; 3 lpm hs Tachy-noni syndrome s/p pacemaker placement 2017 Exercise / Class Metabolic Activity III < 4 Walking/Shop/Light housework Past Family History Family History Other No family history of adverse response to anesthesia Past Surgical History Surgical History History of surgery Rectal fissure repair Hx of colonoscopy Hx of tonsillectomy Hx of total hip arthroplasty RIGHT S/P placement of cardiac pacemaker Status post left hip replacement Past Anesthesia History No Hx of Anesthesia Complications and No Family Hx of Anesthesia Complications History of PONV No Hx of PONV and No Hx of Motion Sickness Social History Smoking Status: Never smoker tobacco type: cigarettes Do You Dip or Chew Tobacco: No Smoking End Date: Quit in 1978 Hx Alcohol Use: No Hx Substance Use: No substance use type: does not use Review of Systems ROS Unobtainable: All systems reviewed & are unremarkable except as noted in HPI & below Physical Exam Vital Signs Last Vital Signs Temp 36.6 C 12/03/22 11:10 Pulse 77 12/03/22 11:10 Resp 20 12/03/22 11:10 BP 107/60 12/03/22 11:10 Pulse Ox 95 12/03/22 11:10 O2 Del Method Nasal Cannula 12/03/22 11:10 O2 Flow Rate 4 12/03/22 11:10 FiO2 21 12/01/22 07:39 Constitutional no acute distress ENMT Mouth: no TMJ abnormality Thyromental Distance: > or= 3.5 Finger Breadths Mallampati Class: III Neck normal visual inspection and trachea midline; neck extension not limited Respiratory normal respiratory effort Auscultation: lungs clear to auscultation bilaterally Cardiovascular Rate/Rhythm: regular rate and regular rhythm Heart Sounds: no murmur Chest (Breasts) Chest: + pacemaker Musculoskeletal Spine: normal cervical ROM Extremities: full ROM of extremities Neurologic moves all extremities Psychiatric Orientation: alert and oriented x 3 Testing Laboratory Results 12/03/22 07:46 12/03/22 07:46 Urine Color Yellow 11/30/22 14:24 Urine Appearance Clear (Clear) 11/30/22 14:24 Urine pH 5.5 (4.5-7.5) 11/30/22 14:24 Ur Specific [place] 1.017 (1.000-1.030) 11/30/22 14:24 Urine Protein Negative (Negative) 11/30/22 14:24 Urine Glucose (UA) Negative (Negative) 11/30/22 14:24 Urine Ketones Negative (Negative) 11/30/22 14:24 Urine Nitrite Negative (Negative) 11/30/22 14:24 Ur Leukocyte Esterase Negative (Negative) 11/30/22 14:24 11/30/22 14:14 Aerobic Blood Culture - Preliminary Blood No growth in Aerobic bottle after 48 hours. Anaerobic Blood Culture - Preliminary No growth in Anaerobic bottle after 48 hours. 11/30/22 13:14 Aerobic Blood Culture - Preliminary Blood No growth in Aerobic bottle after 48 hours. Anaerobic Blood Culture - Preliminary No growth in Anaerobic bottle after 48 hours. Electrocardiogram Date: 11/30/22 Atrial fibrillation with occasional ventricular-paced complexes Right bundle branch block Abnormal ECG When compared with ECG of 05-AUG-2022 11:09, Vent. rate has increased BY 29 BPM Confirmed by Grover Gomez ([id number]) on 12/02/2022 9:18:08 PM Stress Test Date: 08/13/22 Type: nuclear negative
--- NOTE | 2022-12-03 12:20 | History & Physical Bridge Note ---
Date of Service December 03, 2022 History & Physical Bridge Note I have examined the patient, reviewed the History & Physical and in the interval since the performance of the History & Physical I have noted the following changes of clinical significance: no changes noted Lumbar decompression and fusion L3-L4, L4-5
[2022-12-03] MEDS ORDERED: ceFAZolin 2000MG 2,000 MG/15 ML SYR IV ONE (12:45)
[2022-12-03] MEDS ORDERED: ceFAZolin 330 MG/ML 1 GM VIAL ONE (12:50)
[2022-12-03] MEDS ORDERED: BUPIVACAINE/EPINEPHRINE 0.25% 1:200,000 30 ML VIAL ONE (12:50)
[2022-12-03] MEDS: ceFAZolin 2,000 MG/15 ML IV PUSH IV ONE ×2 (13:07→13:51)
[2022-12-03] MEDS ORDERED: ONDANSETRON INJ 2 MG/ML 2 ML VIAL ONE (13:37)
[2022-12-03] MEDS ORDERED: ROCURONIUM BROMIDE 10 MG/ML 5 ML VIAL IV ONE ×2 (13:37)
[2022-12-03] MEDS ORDERED: LIDOCAINE 2% 2 ML VIAL/AMP(20MG/ML) INFIL ONE (13:37)
[2022-12-03] MEDS ORDERED: DEXAMETHASONE SOD INJ 4 MG/ML VIAL ONE (13:37)
[2022-12-03] MEDS ORDERED: PROPOFOL IV EMULSION 10 MG/ML 20 ML VIAL IV ONE (13:37)
[2022-12-03] MEDS ORDERED: FLOSEAL HEMOSTATIC MATRIX 10ML TOP ONE (13:49)
[2022-12-03] MEDS ORDERED: SUGAMMADEX SODIUM 200 MG/2 ML VIAL IV ONE (14:39)
--- NOTE | 2022-12-03 15:22 | Operative Report ---
Post Operative Report Pre & Post Diagnosis Operation Date: 12/03/22 11:55 Pre-Op Diagnosis: Lumbar spinal stenosis with neurogenic claudication same Post-Op Diagnosis: Same I identified the patient and participated in the time-out.: Yes Procedure #1 lumbar decompression bilaterally facetectomies and foraminotomies L2-L3, L3- L4 and L4-5 per #2 posterior spinal fusion L3-L4 L4-5 #3 please posterior instrumentation L3-L5 #4 interbody fusion L3-L4 L4-5 #5 placement spiral 12 x 26 mm at L3-L4 and L4-5. #6 placement locally harvested morselized autograft and posterior gutters. #7 placement of I factor interbody space and infuse collagen sponge bone and bone graft and posterior gutters. Operation Date: 12/03/22 11:55 Actual Procedures Surgeon Randolph Esteves, Trauma Manager Ashley Colvin Estimated Blood Loss 400 Findings Consistent with Post-Op Diagnosis Specimens None Indications This is an 82-year-old male who presents with marked decline in status and inability to ambulate and diagnosed with severe spinal stenosis and here for urgent decompression. Description of Procedure Patient was met with identified informed send pain. Patient was then taken to the operative suite underwent patient placed in a prone position to check stable topicals and frame. All bony promises well-padded I suspected to ensure no external precipice upon the. This point the lumbar spine was prepped and draped in a sterile fashion. Sharp dissection with the assistance of Bovie cards from down to and exposing the lamina transverse processes of L3 L4-5 bilaterally. From caudal cephalad fashion complete laminectomy of L4 L3 and partial laminectomy L2 was performed including bilateral medial facetectomies and foraminotomies addressing severe spinal stenosis. Pedicle screws were then placed in L3 L4-5 bilaterally with assistance of fluoroscopy and appropriate size priscilla placed. By way of transfer approach and right complete discectomy of L4-5 was performed endplates corrected to subcortical bone and a 12 x 26 mm Spira cage with I factor tapped in position. Then proceeded L3-L4 and again by way of transforaminal approach on the right discectomy was performed endplates guarded to subcortical pain bone and a 12 x 26 mm prior cage with I factor tapped in position. The rods were then locked into position bilaterally. The transverse processes of L3 L4-5 burred to subcortical bleeding bone. Infuse collagen sponge, mass graft and local autograft placed in the posterior gutters. 15 round CINTIA drain inserted. The incision was then closed with 1 Vicryl to fascia 2-0 Vicryl subcutaneously and 4 Monocryl for final skin closure. Steri- Strips sterile dressing placed. Patient waken taken PACU stable condition. Please note spinal cord monitoring was utilized at the procedure no changes noted. Bessie Colvin was present at the entire surgery involved the patient positioning complex course of the surgery and final skin closure. I attest to the content of the Intraoperative Record and any orders documented therein. Any exceptions are noted below.
--- NOTE | 2022-12-03 16:04 | Fluoroscopy Report ---
FL lumbar spine 2-3V CLINICAL HISTORY: L3-L5 DECOMPRESSION AND FUSION COMPARISON STUDY: MR lumbar spine 12/02/2022 FLUOROSCOPY TIME: 25.3 seconds FLUOROSCOPY IMAGES: 2 EXPOSURE DOSE: 17.39 mGy FINDINGS: Posterior interbody priscilla and screw fusion hardware is noted at what is labeled the L3-L5 lev els. The hardware appears intact. No acute fracture or unexpected opaque foreign body identified. IMPRESSION: Fluoroscopic assistance as above. ACT 112: Negative or not required by law. Electronically signed by: Gavin Recio M.D. 12/03/2022 4:02 PM
--- NOTE | 2022-12-03 16:30 | Anesthesiology Progress Note ---
Date of Service December 03, 2022 Anesthesia Post Procedure Vital Signs Vital Signs: Temp Pulse Pulse Pulse Resp BP Pulse Ox 12/03/22 16:15 98 H 15 127/68 94 12/03/22 16:05 88 15 118/73 93 12/03/22 15:55 91 H 16 133/74 92 12/03/22 15:47 36.4 C L 101 H 14 148/93 H 91 12/03/22 11:10 36.6 C 77 20 107/60 95 12/03/22 08:30 12/03/22 07:14 78 18 95 12/03/22 07:03 36.4 C L 74 18 143/81 H 95 12/02/22 20:00 12/02/22 20:07 36.5 C 85 16 122/75 93 12/02/22 19:19 16 93 O2 Del Method O2 Flow Rate 12/03/22 16:15 Oxymask 5 12/03/22 16:05 Oxymask 11 12/03/22 15:55 Oxymask 11 12/03/22 15:47 Oxymask 11 12/03/22 11:10 Nasal Cannula 4 12/03/22 08:30 Nasal Cannula 4 12/03/22 07:14 Nasal Cannula 4 12/03/22 07:03 Nasal Cannula 3.0 12/02/22 20:00 Nasal Cannula 4 12/02/22 20:07 Nasal Cannula 4 12/02/22 19:19 Nasal Cannula 4 Pain Intensity Left Hip: Pain Intensity: 1 Back: Pain Intensity: 2 Transfer of Care Handoff Completed per policy Notes Mental Status: alert / awake / arousable Patient Amnestic to Procedure: Yes Nausea / Vomiting: adequately controlled Pain: adequately controlled Airway Patency, RR, SpO2: stable & adequate BP & HR: stable & adequate Hydration State: stable & adequate Anesthetic Complications: no major complications apparent and Pt Satisfied with anesthetic care
--- NOTE | 2022-12-03 17:05 | Hospitalist Progress Note ---
Date of Service December 03, 2022 Assessment & Plan (1) Lumbar spinal stenosis: (2) Weakness: Plan: Patient is 82-year-old male with PMH chronic atrial fibrillation chronically anticoagulated on Eliquis, tachybradycardia syndrome s/p pacemaker, HLD, chronic respiratory failure on chronic oxygen, chronic CHF preserved EF, hypothyroidism, CKD III, depression, anxiety, RLS, RUDY presented to ER with C/O progressive BLE weakness. CT head: No acute intracranial findings No significant electrolyte abnormality, no signs of acute infection CT lumbar Spine: IMPRESSION:1. No acute fracture or subluxation.2. Levoscoliosis with multilevel degenerative changes of the above resulting in associated central canal and neural foraminal narrowing. Patient with MRI compatible pacemaker Lumbar spine MRI with levoscoliosis with multilevel degenerative changes of the above resulting in associated central canal and neural foraminal narrowing. POD#1 S/p lumbar decompression bilaterally facetectomies and foraminotomies L2- L3, L3-L4 and L4-5 and posterior spinal fusion L3-L4 L4-5 Per ortho for pain control, wound care, anticoagulation and activities Monitor H&H (EBL 400ml, pre-op hgb 13.4), continue incentive spirometry, PT/OT when appropriate Eliquis held- per ortho surgery to resume once appropriate (3) Chronic atrial fibrillation: Plan: Chronically anticoagulated on Eliquis Eliquis on hold cont metoprolol tartrate, diltiazem chronic, stable (4) Chronic heart failure with preserved ejection fraction: Plan: Appears euvolemic Continue torsemide, spironolactone daily weight, strict intake output, low sodium diet (5) Tachy-noni syndrome: Plan: S/p pacemaker (6) Chronic respiratory failure: Plan: Chronic bronchitis, bronchiectasis On chronic 2-3 L oxygen via nasal cannula Continue oxygen supplementation Continue home inhalers, nebulizers (7) HTN (hypertension): Plan: Continue diltiazem, metoprolol tartrate chronic, stable (8) Hyperlipidemia: Plan: Continue atorvastatin (9) Chronic kidney disease (CKD), stage III (moderate): Plan: Cr: 1.25. Baseline~1.1 Monitor renal functions, avoid nephrotoxic agents when possible (10) Hypothyroidism: Plan: Continue levothyroxine (11) Anxiety and depression: Plan: Continue Lexapro (12) Restless leg syndrome: Plan: Continue ropinirole (13) Sleep apnea: Plan: BiPAP at bedtime DVT Prophylaxis [place] held, SCDs for now Full Code as per discussion with pt Follows with Dr King for routine care Dispo: Per primary service Admission and Anticipated Discharge Date Admission Date: December 02, 2022 Supervising Physician Co-Signing Physician Notes I have seen and discussed the case with the collaborating CONNOR. I agree with the above H&P. I have reviewed and confirmed the patients medical history, the findings on physical examination, and the patients diagnosis and treatment plan with Eduar RYAN and agree with the information documented. Subjective Patient was seen and examined at 3832 in follow-up progressive lower extremity weakness. Denies any acute changes overnight. Weakness is unchanged. Awaiting OR in a few hours with Dr. Esteves. Denies fever, chills, sweats, lightheadedness, dizziness, chest pain, shortness of breath, nausea or vomiting. Review of Systems Review of Systems: At least ten systems reviewed and negative except as noted in the HPI. Physical Exam Physical Exam: Gen: WD/WN, elderly, male,resting comfortably in bed, NAD, A&O x3 HEENT: [place], Normocephalic, atraumatic, conjunctivae moist, sclerae anicteric, mucous membranes moist. Lung: Clear to Auscultation bilaterally, no wheezes/rales/rhonchi, on oxygen 3 L Heart: irregular rate and rhythm, no murmur appreciated Abdomen: Soft, NT, ND +BS x 4 Extremities: No edema Skin: Warm, no rash Results & Data Results & Data Vital Signs (Past 12 Hours) Vital Signs Temp Pulse Pulse Pulse Resp BP Pulse Ox 12/03/22 16:52 36.2 C L 93 H 18 106/71 91 12/03/22 16:35 97 H 20 129/69 93 12/03/22 16:25 37 C 97 H 20 127/74 92 12/03/22 16:15 98 H 15 127/68 94 12/03/22 16:05 88 15 118/73 93 12/03/22 15:55 91 H 16 133/74 92 12/03/22 15:47 36.4 C L 101 H 14 148/93 H 91 12/03/22 11:10 36.6 C 77 20 107/60 95 12/03/22 08:30 10/26/23 07:14 78 18 95 12/03/22 07:03 36.4 C L 74 18 143/81 H 95 O2 Del Method O2 Flow Rate 12/03/22 16:52 Nasal Cannula 3 12/03/22 16:35 Nasal Cannula 4 12/03/22 16:25 Nasal Cannula 4 12/03/22 16:15 Oxymask 5 12/03/22 16:05 Oxymask 11 12/03/22 15:55 Oxymask 11 12/03/22 15:47 Oxymask 11 12/03/22 11:10 Nasal Cannula 4 12/03/22 08:30 Nasal Cannula 4 12/03/22 07:14 Nasal Cannula 4 12/03/22 07:03 Nasal Cannula 3.0 Laboratory Results Short CBC 12/03/22 Range/Units 07:46 WBC 8.90 (4.8-10.8) K/ul Hgb 13.4 L (14.0-18.0) g/dl Hct 40.5 L (42.0-52.0) % Plt Count 152 (130-400) K/uL BMP 12/03/22 07:46 Sodium 141 Potassium 3.9 Chloride 98 Carbon Dioxide 38 H BUN 27 H Creatinine 1.25 Glucose 96 Calcium 9.3 Diagnostic Findings Chest X-Ray 11/30/22 13:04 XR chest 1V portable CLINICAL HISTORY: Sepsis TECHNIQUE: Single frontal radiograph of the chest was obtained. Comparison: Comparison is made to chest radiograph 08/05/2022 FINDINGS: Lines and tubes are stable. Calcified aortic knob is seen. Lungs are underinflated but clear. No evidence of pleural effusion or pneumothorax. IMPRESSION: No acute abnormalities and in particular no radiographic evidence of pneumonia. ACT 112: Negative or not required by law. Electronically signed by: Beka Merlos M.D. 11/30/2022 1:[address] 11/30/22 13:04 CT head/brain wo con CLINICAL HISTORY: 82 years-old Male with fall. Acute head trauma status post fall TECHNIQUE: Multiple axial CT images of the head were obtained without contrast. A dose lowering technique was utilized adhering to the principles of ALARA. CT DOSE: 625.8 mGy.cm COMPARISON: None. FINDINGS: No acute intracranial hemorrhage, midline shift, intracranial mass, hydrocephalus, territorial ischemia or abnormal extra-axial collection. Involutional changes with chronic microvascular ischemic disease. The calvarium is intact. Prior bilateral lens repair. The paranasal sinuses, mastoid air cells, and middle ear cavities are clear. IMPRESSION: No acute intracranial abnormality or calvarial fracture. ACT 112: Negative or not required by law. The above report was generated using voice recognition software. It may contain grammatical, syntax or spelling errors. Electronically signed by: Gavin Recio M.D. 11/30/2022 1:[address] 11/30/22 16:20 CT lumbar spine wo con HISTORY: 82 years-old Male BLE weakness acute pain of the lower legs COMPARISON: None TECHNIQUE: Multiple axial CT images of the MR spine were obtained without the use of IV contrast. A dose lowering technique was used consistent with the principals of DANIELLE. FINDINGS: Suboptimal evaluation of the central canal and neural foramina by CT technique. Severe multilevel facet arthrosis. Spondylotic spurring with posterior annular disc bulging and disc osteophyte complex formations are noted at several levels L1-L2: Mild central canal stenosis. Neural foramen are patent. L2-L3: Posterior annular disc bulge with ligamentum flavum thickening and facet arthrosis results in moderate central canal stenosis with mild left and [id number] right foraminal narrowing. L3-L4: Spondylotic spurring with posterior annular disc bulge, ligamentum flavum thickening and advanced facet arthrosis. Severe central canal stenosis with moderate right and mild to moderate left foraminal narrowing. L4-L5: Grade 1 anterolisthesis, likely degenerative. Spondylotic spurring with posterior disc osteophyte complex, ligamentum flavum thickening and advanced facet arthrosis. Severe central canal stenosis with moderate to severe right and moderate left foraminal narrowing. L5-S1: Posterior disc osteophyte complex with ligamentum flavum thickening and moderate to severe facet arthrosis. The central canal is patent. Moderate bilateral foraminal narrowing. Mild levoscoliosis. No acute fracture, subluxation or endplate erosion identified. Mild to moderate degeneration of the SI joints. The imaged intra-abdominal structures are unremarkable. Probable left renal cyst is partially imaged. IMPRESSION: 1. No acute fracture or subluxation. 2. Levoscoliosis with multilevel degenerative changes of the above resulting in associated central canal and neural foraminal narrowing. ACT 112: Negative or not required by law. The above report was generated using voice recognition software. It may contain grammatical, syntax or spelling errors. Electronically signed by: Gavin Recio M.D. 11/30/2022 5:28 PM Lumbar Spine MRI 12/02/22 00:00 MR lumbar spine wo con CLINICAL HISTORY: 82 years-old Male with lumbar stenosis, b/l weakness. Chronic low back pain COMPARISON: CT lumbar spine 11/30/2022. TECHNIQUE: Multiplanar, multi sequence MRI of the lumbar spine was performed without intravenous contrast. FINDINGS: Motion degraded exam. No acute fracture, subluxation or endplate erosion. Mild Modic type I endplate degeneration at L5-S1. Conus medullaris terminates at L1- L2. Severe multilevel facet arthrosis. Spondylotic spurring with posterior annular disc bulging and disc osteophyte complex formations are noted at several levels. Suboptimal evaluation of the central canal and neural foramen secondary to the motion artifact. Marrow edema with surrounding soft tissue edema involves the left L4-L5 pedicles and facets, likely degenerative/reactive. Partially imaged probable cyst of the left kidney. L1-L2: Mild intervertebral disc space narrowing with spondylotic spurring and small circumferential annular disc bulging. Mild central canal stenosis. Mild bilateral neural foraminal narrowing. L2-L3: Moderate intervertebral disc space narrowing. Posterior annular disc bulge with ligamentum flavum thickening and facet arthrosis results in moderate central canal stenosis with mild to moderate bilateral foraminal narrowing. AP dimension of the thecal sac measures 7.5 mm. L3-L4: Moderate intervertebral disc space narrowing. Spondylotic spurring with posterior annular disc bulge, ligamentum flavum thickening and advanced facet arthrosis. Severe central canal stenosis with severe right and moderate left foraminal narrowing. AP dimension of the thecal sac measures 4 mm. Severe narrowing of the lateral recesses. L4-L5: Moderate intervertebral disc space narrowing. Grade 1 anterolisthesis, likely degenerative. Spondylotic spurring with posterior disc osteophyte complex, ligamentum flavum thickening and advanced facet arthrosis. Moderate central canal stenosis with AP dimension of the thecal sac measuring 8 mm. There is at least moderate narrowing of the lateral recesses. Severe right with moderate to severe left foraminal narrowing. L5-S1: Mild to moderate intervertebral disc space narrowing. Posterior disc osteophyte complex with ligamentum flavum thickening and moderate to severe facet arthrosis. The central canal is patent. Mild to moderate bilateral foraminal narrowing. Mild levoscoliosis. IMPRESSION: 1. Motion degraded exam. 2. Levoscoliosis with multilevel degenerative changes of the above resulting in associated central canal and neural foraminal narrowing. 3. No acute fracture. ACT 112: Negative or not required by law. The above report was generated using voice recognition software. It may contain grammatical, syntax or spelling errors. Dictated: 12/02/2022 1:53 PM Transcribed: 12/02/2022 2:29 PM [employer] [id number] [email or web address] [id number] Electronically signed by: Gavin Recio M.D. 12/02/2022 2:30 PM Lumbar Spine X-Ray 12/03/22 11:55 FL lumbar spine 2-3V CLINICAL HISTORY: L3-L5 DECOMPRESSION AND FUSION COMPARISON STUDY: MR lumbar spine 12/02/2022 FLUOROSCOPY TIME: 25.3 seconds FLUOROSCOPY IMAGES: 2 EXPOSURE DOSE: 17.39 mGy FINDINGS: Posterior interbody priscilla and screw fusion hardware is noted at what is labeled the L3-L5 levels. The hardware appears intact. No acute fracture or unexpected opaque foreign body identified. IMPRESSION: Fluoroscopic assistance as above. ACT 112: Negative or not required by law. Electronically signed by: Gavin Recio M.D. 12/03/2022 4:02 PM
[2022-12-03] MEDS ORDERED: bisacodyL 10 MG SUPP PR PRN (17:13)
[2022-12-03] MEDS ORDERED: ACETAMINOPHEN 500 MG TAB PO PRN (17:13)
[2022-12-03] MEDS ORDERED: LORazepam 2 MG/1 ML VIAL IV PRN (17:13)
[2022-12-03] MEDS ORDERED: diphenhydrAMINE Capsule 25 MG CAP PO PRN (17:13)
[2022-12-03] MEDS ORDERED: NALOXONE HCL 0.4 MG/1 ML VIAL/CARP IV PRN (17:13)
[2022-12-03] MEDS ORDERED: ONDANSETRON 4 MG OD TAB PO PRN (17:13)
[2022-12-03] MEDS ORDERED: DO NOT ADMINISTER PNEUMOCOCCAL VACCINE PRN (17:13)
[2022-12-03] MEDS ORDERED: METOCLOPRAMIDE HCL INJ 5 MG/ML 2 ML VIAL IV PRN (17:13)
[2022-12-03] MEDS ORDERED: MAGNESIUM HYDROXIDE SUSP 30 ML UDC PO PRN (17:13)
[2022-12-03] MEDS ORDERED: DO NOT ADMINISTER FLU VACCINE PRN (17:13)
[2022-12-03] MEDS ORDERED: hydrOXYzine HCl 25 MG TAB PO PRN (17:13)
[2022-12-03] MEDS ORDERED: FAMOTIDINE 20 MG TAB PO PRN (17:13)
[2022-12-03] MEDS ORDERED: ALUMINUM/MAGNESIUM SUSP 30 ML UDC PO PRN (17:13)
[2022-12-03] MEDS ORDERED: SOD PHOSPHATE/SOD BIPHOSPHATE ENEMA 132 ML BTL PR PRN (17:13)
[2022-12-03] MEDS ORDERED: PROMETHAZINE HCL 12.5 MG in SODIUM CHLORIDE 0.9% 50 ML IV PRN (17:13)
[2022-12-03] MEDS ORDERED: ACETAMINOPHEN 1,000 MG/100 ML VIAL IV PRN (17:13)
[2022-12-03] MEDS: HYDROmorphone INJ 0.5 MG/0.5 ML SYR IV PRN (18:22)
[2022-12-03] MEDS: ATORVASTATIN 20 MG TAB PO SCH (21:06)
[2022-12-03] MEDS: MAGNESIUM OXIDE 400 MG TAB PO SCH (21:06)
[2022-12-03] MEDS: rOPINIRole HCL 1 MG TABLET PO SCH (21:06)
[2022-12-03] MEDS: OLANZapine 5 MG TABLET PO SCH (21:07)
[2022-12-03] MEDS: MIRTAZAPINE TAB 15 MG TAB PO SCH (21:07)
[2022-12-03] MEDS: ceFAZolin 2000MG 2,000 MG/15 ML SYR IV SCH (21:08)
[2022-12-03] MEDS: DOCUSATE SODIUM/SENNA 50/8.6MG TAB PO SCH (21:10)
[2022-12-04] MEDS: HYDROmorphone INJ 0.5 MG/0.5 ML SYR IV PRN (02:43)
[2022-12-04] MEDS: ACETAMINOPHEN 500 MG TAB PO SCH ×3 (05:54→22:38)
[2022-12-04] MEDS: POLYETHYLENE (MIRALAX) 17 GM PACK PO SCH ×3 (05:54→17:18)
[2022-12-04] MEDS: LEVOTHYROXINE SODIUM 75 MCG TABLET PO SCH (05:54)
[2022-12-04] MEDS: ceFAZolin 2000MG 2,000 MG/15 ML SYR IV SCH (05:55)
[2022-12-04] MEDS: SODIUM CHLOR 7% 4 ML NEB INH SCH ×2 (07:27→20:58)
[2022-12-04] MEDS: ALBUT/IPRATROP 3MG/0.5MG NEB 3 ML VIAL NEB SCH ×2 (07:27→20:58)
[2022-12-04 07:50] LABS: Basophils # (auto) 0.02 K/uL (0.00-0.20); Basophils % (auto) 0.1 %; Hematocrit (blood only) 36.6 % (42.0-52.0); Hemoglobin 11.7 g/dl (14.0-18.0); Immature Granulocytes % (auto) 0.7 %; Lymphocytes # (auto) 0.83 K/uL (1.20-3.40); Lymphocytes % (auto) 5.4 %; Mean Corpuscular Hemoglobin 29.8 pg (25.0-34.0); Mean Corpuscular Volume 93.1 fL (80.0-100.0); Mean Platelet Volume 11.5 fL (9.4-12.4); Monocytes # (auto) 1.44 K/uL (0.11-0.59); Monocytes % (auto) 9.4 %; Neutrophils # (auto) 12.87 K/uL (1.40-6.50); Neutrophils % (auto) 84.4 %; Platelet Count 155 K/uL (130-400); RDW Standard Deviation 51.8 fL (36.4-46.3); Red Blood Count 3.93 M/uL (4.70-6.10); White Blood Count 15.26 K/ul (4.8-10.8)
[2022-12-04] MEDS: HYDROCODONE/ACETAMOPHEN 5/325MG TAB PO PRN (07:57)
[2022-12-04] MEDS: dexAMETHasone 6 MG in SYRINGE 0 ML IV SCH (07:58)
[2022-12-04] MEDS: CALCIUM 600MG + VIT D 400 IU TAB PO SCH (07:58)
[2022-12-04] MEDS: ASPIRIN 81 MG ECTAB PO SCH (07:58)
[2022-12-04] MEDS: FLUTICASONE/VILANTEROL 200/25MCG 14 PUFFS/INHALER INH SCH (07:59)
[2022-12-04] MEDS: guaiFENesin 600 MG TABCR PO SCH ×2 (07:59→21:18)
[2022-12-04] MEDS: ESCITALOPRAM OXALATE 20 MG TAB PO SCH (07:59)
[2022-12-04] MEDS: SPIRONOLACTONE 12.5 MG TAB PO SCH (08:00)
[2022-12-04] MEDS: METOPROLOL TARTRATE 25 MG TAB PO SCH ×2 (08:00→21:20)
[2022-12-04] MEDS: TAMSULOSIN HCL 0.4 MG CAP PO SCH (08:00)
[2022-12-04] MEDS: TORSEMIDE 20 MG TAB PO SCH (08:00)
[2022-12-04] MEDS: dilTIAZem HCL 180 MG CAPCR PO SCH (08:01)
[2022-12-04] MEDS: POTASSIUM CHLORIDE 10 MEQ TABCR PO SCH (08:03)
[2022-12-04 08:04] LABS: BUN Creatinine Ratio 21.5 (10-20); Calcium 9.5 mg/dl (8.6-10.3); Creatinine Clr Calc Pharmacy 45.7 ml/min; Est GFR (African American) 49.9 ml/min; Est GFR (Non-African American) 43.1 ml/min
--- NOTE | 2022-12-04 10:17 | Orthopedic Progress Note ---
Date of Service December 04, 2022 Assessment & Plan (1) Lumbar spinal stenosis: Plan: At this time initiate physical therapy and Occupational Therapy. Hopefully we can begin at least transfers to the chair and standing as tolerated. He would be a candidate for rehab placement. Admission and Anticipated Discharge Date Admission Date: December 02, 2022 Subjective Back pain controlled denies any leg pain. Physical Exam Physical Exam: Patient examined in bed. Discussed when to testing. Appears comfortable. Results & Data Vital Signs (Past 12 Hours) Vital Signs Temp Pulse Pulse Resp BP Pulse Ox O2 Del Method 12/04/22 08:15 Nasal Cannula 12/04/22 08:13 36.6 C 80 16 93 Nasal Cannula 12/04/22 07:28 90 20 97 Nasal Cannula 12/04/22 02:50 36.2 C L 81 18 120/79 94 Room Air 12/03/22 23:46 36.3 C L 90 18 128/71 97 Nasal Cannula O2 Flow Rate 12/04/22 08:15 4 12/04/22 08:13 4 12/04/22 07:28 4 12/04/22 02:50 12/03/22 23:46 4
--- NOTE | 2022-12-04 15:04 | Hospitalist Progress Note ---
Date of Service December 04, 2022 Assessment & Plan (1) Lumbar spinal stenosis: (2) Weakness: Plan: Patient is 82-year-old male with PMH chronic atrial fibrillation chronically anticoagulated on Eliquis, tachybradycardia syndrome s/p pacemaker, HLD, chronic respiratory failure on chronic oxygen, chronic CHF preserved EF, hypothyroidism, CKD III, depression, anxiety, RLS, RUDY presented to ER with C/O progressive BLE weakness. CT head: No acute intracranial findings No significant electrolyte abnormality, no signs of acute infection CT lumbar Spine: IMPRESSION:1. No acute fracture or subluxation.2. Levoscoliosis with multilevel degenerative changes of the above resulting in associated central canal and neural foraminal narrowing. Patient with MRI compatible pacemaker Lumbar spine MRI with levoscoliosis with multilevel degenerative changes of the above resulting in associated central canal and neural foraminal narrowing. POD#1 s/p lumbar decompression bilaterally facetectomies and foraminotomies L2- L3, L3-L4 and L4-5 and posterior spinal fusion L3-L4 L4-5 Per ortho for pain control, wound care, anticoagulation and activities Hgb 11.7 today (EBL 400ml, pre-op hgb 13.4), monitor with daily CBC Continue incentive spirometry, PT/OT when appropriate Okay to resume Eliquis Wednesday AM per Dr. Esteves Planning for dc to rehab (3) Chronic atrial fibrillation: Plan: Chronically anticoagulated on Eliquis Eliquis on hold Cont metoprolol tartrate, diltiazem (4) Chronic heart failure with preserved ejection fraction: Plan: Appears euvolemic Continue torsemide, spironolactone daily weight, strict intake output, low sodium diet (5) Tachy-noni syndrome: Plan: S/p pacemaker (6) Chronic respiratory failure: Plan: Chronic bronchitis, bronchiectasis On chronic 2-3 L oxygen via nasal cannula Continue oxygen supplementation Continue home inhalers, nebulizers (7) HTN (hypertension): Plan: Continue diltiazem, metoprolol tartrate chronic, stable (8) Hyperlipidemia: Plan: Continue atorvastatin (9) Chronic kidney disease (CKD), stage III (moderate): Plan: Cr: 1.25. Baseline~1.1 Monitor renal functions, avoid nephrotoxic agents when possible (10) Hypothyroidism: Plan: Continue levothyroxine (11) Anxiety and depression: Plan: Continue Lexapro (12) Restless leg syndrome: Plan: Continue ropinirole (13) Sleep apnea: Plan: BiPAP at bedtime DVT Prophylaxis [place], SCDs for now Full Code as per discussion with pt Follows with Dr King for routine care Dispo: Per primary service Admission and Anticipated Discharge Date Admission Date: December 02, 2022 Supervising Physician Co-Signing Physician Notes I have seen and discussed the case with the collaborating CONNOR. I agree with the above H&P. I have reviewed and confirmed the patients medical history, the findings on physical examination, and the patients diagnosis and treatment plan with Eduar RYAN and agree with the information documented. Patient POD 1 from lumbar decompression. Other medical conditions stable at this time. Patient's pain controlled. Plan for PT/OT for further dispo planning. Subjective Patient was seen and examined at 3832 in follow-up progressive lower extremity weakness.POD#1 s/p spinal surgery. Pain is controlled and is currently 2/10 after medication. Weakness is unchanged. Otherwise feeling well and no acute changes overnight. Tolerating diet without issue, montoya catheter in place, passing post-op flatus. Denies fever, chills, sweats, lightheadedness, dizziness, chest pain, shortness of breath, nausea or vomiting. Review of Systems Review of Systems: At least ten systems reviewed and negative except as noted in the HPI. Physical Exam Physical Exam: Gen: WD/WN, elderly, male,resting comfortably in bed, NAD, A&O x3 HEENT: [place], Normocephalic, atraumatic, conjunctivae moist, sclerae anicteric, mucous membranes moist. Lung: Clear to Auscultation bilaterally, no wheezes/rales/rhonchi, on oxygen 3 L Heart: irregular rate and rhythm, no murmur appreciated Abdomen: Soft, NT, ND +BS x 4 : [place] Extremities: +Spinal dressing c/d/i, CINTIA drain visualized. No edema Skin: Warm, no rash Results & Data Results & Data Vital Signs (Past 12 Hours) Vital Signs Temp Pulse Pulse Resp Pulse Ox O2 Del Method O2 Flow Rate 12/04/22 08:15 Nasal Cannula 4 12/04/22 08:13 36.6 C 80 16 93 Nasal Cannula 4 12/04/22 07:28 90 20 97 Nasal Cannula 4 Laboratory Results Short CBC 12/04/22 Range/Units 07:20 WBC 15.26 H (4.8-10.8) K/ul Hgb 11.7 L (14.0-18.0) g/dl Hct 36.6 L (42.0-52.0) % Plt Count 155 (130-400) K/uL BMP 12/04/22 07:20 Sodium 141 Potassium 5.0 D Chloride 98 Carbon Dioxide 39 H BUN 32 H Creatinine 1.49 H Glucose 145 H Calcium 9.5
[2022-12-04] MEDS: DOCUSATE SODIUM/SENNA 50/8.6MG TAB PO SCH (21:17)
[2022-12-04] MEDS: MIRTAZAPINE TAB 15 MG TAB PO SCH (21:18)
[2022-12-04] MEDS: MAGNESIUM OXIDE 400 MG TAB PO SCH (21:18)
[2022-12-04] MEDS: ATORVASTATIN 20 MG TAB PO SCH (21:21)
[2022-12-04] MEDS: rOPINIRole HCL 1 MG TABLET PO SCH (21:21)
[2022-12-04] MEDS: OLANZapine 5 MG TABLET PO SCH (21:21)
[2022-12-05] MEDS: POLYETHYLENE (MIRALAX) 17 GM PACK PO SCH ×4 (00:57→18:26)
[2022-12-05] MEDS: LEVOTHYROXINE SODIUM 75 MCG TABLET PO SCH (06:38)
[2022-12-05] MEDS: ACETAMINOPHEN 500 MG TAB PO SCH ×3 (06:40→21:47)
[2022-12-05] MEDS: SODIUM CHLOR 7% 4 ML NEB INH SCH ×2 (07:04→17:58)
[2022-12-05] MEDS: ALBUT/IPRATROP 3MG/0.5MG NEB 3 ML VIAL NEB SCH ×2 (07:04→17:58)
[2022-12-05 07:45] LABS: Hematocrit (blood only) 32.4 % (42.0-52.0); Hemoglobin 10.4 g/dl (14.0-18.0); Mean Corpuscular Hemoglobin 29.9 pg (25.0-34.0); Mean Corpuscular Hgb Conc 32.1 g/dL (32.0-36.0); Mean Corpuscular Volume 93.1 fL (80.0-100.0); Mean Platelet Volume 11.7 fL (9.4-12.4); Platelet Count 153 K/uL (130-400); RDW Standard Deviation 51.4 fL (36.4-46.3); Red Blood Count 3.48 M/uL (4.70-6.10); White Blood Count 16.37 K/ul (4.8-10.8)
[2022-12-05 08:01] LABS: BUN Creatinine Ratio 28.7 (10-20); Calcium 9.6 mg/dl (8.6-10.3); Creatinine Clr Calc Pharmacy 39.9 ml/min; Est GFR (African American) 41.4 ml/min; Est GFR (Non-African American) 35.7 ml/min
--- NOTE | 2022-12-05 08:43 | Orthopedic Progress Note ---
Date of Service December 05, 2022 Assessment & Plan (1) Lumbar spinal stenosis: Plan: Patient is considerably weak. We will continue to challenge him with standing and attempts to walk. He will be a candidate for rehab. Anticipate obtaining an MRI of the thoracic spine most likely Wednesday to rule out additional neural compression. Admission and Anticipated Discharge Date Admission Date: December 02, 2022 Subjective Patient's back pain is controlled. Denies any leg pain. Is not taking any pain medication at this time. Physical Exam Physical Exam: Patient is sitting up in bed. He appears comfortable. He has reasonable strength testing lower extremities. Sensory is intact. Results & Data Vital Signs (Past 12 Hours) Vital Signs Temp Pulse Pulse Pulse Resp BP Pulse Ox 12/05/22 07:25 36.7 C 104 H 20 116/69 92 12/05/22 07:05 108 H 18 92 12/04/22 22:52 12/04/22 22:41 36.6 C 81 16 108/66 95 12/04/22 21:01 86 18 91 Pulse Ox O2 Del Method O2 Del Method O2 Flow Rate O2 Flow Rate 12/05/22 07:25 Nasal Cannula 4 12/05/22 07:05 Nasal Cannula 4 12/04/22 22:52 95 Nasal Cannula 4 12/04/22 22:41 Nasal Cannula 4 12/04/22 21:01 Room Air 4
[2022-12-05] MEDS: ASPIRIN 81 MG ECTAB PO SCH (09:17)
[2022-12-05] MEDS: dexAMETHasone 6 MG in SYRINGE 0 ML IV SCH (09:19)
[2022-12-05] MEDS: HYDROCODONE/ACETAMOPHEN 5/325MG TAB PO PRN (09:48)
[2022-12-05] MEDS: FLUTICASONE/VILANTEROL 200/25MCG 14 PUFFS/INHALER INH SCH (09:49)
[2022-12-05] MEDS: CALCIUM 600MG + VIT D 400 IU TAB PO SCH (09:50)
[2022-12-05] MEDS: ESCITALOPRAM OXALATE 20 MG TAB PO SCH (09:51)
[2022-12-05] MEDS: dilTIAZem HCL 180 MG CAPCR PO SCH (09:51)
[2022-12-05] MEDS: METOPROLOL TARTRATE 25 MG TAB PO SCH ×2 (09:52→20:01)
[2022-12-05] MEDS: guaiFENesin 600 MG TABCR PO SCH ×2 (09:52→20:01)
[2022-12-05] MEDS: TAMSULOSIN HCL 0.4 MG CAP PO SCH (09:53)
[2022-12-05] MEDS: POTASSIUM CHLORIDE 10 MEQ TABCR PO SCH (09:56)
[2022-12-05] MEDS: LACTATED RINGER'S 1,000 ML IV SCH ×2 (10:36→18:40)
--- NOTE | 2022-12-05 15:59 | Hospitalist Progress Note ---
Date of Service December 05, 2022 Assessment & Plan (1) Lumbar spinal stenosis: (2) Weakness: Plan: Patient is 82-year-old male with PMH chronic atrial fibrillation chronically anticoagulated on Eliquis, tachybradycardia syndrome s/p pacemaker, HLD, chronic respiratory failure on chronic oxygen, chronic CHF preserved EF, hypothyroidism, CKD III, depression, anxiety, RLS, RUDY presented to ER with C/O progressive BLE weakness. CT head: No acute intracranial findings No significant electrolyte abnormality, no signs of acute infection CT lumbar Spine: IMPRESSION:1. No acute fracture or subluxation.2. Levoscoliosis with multilevel degenerative changes of the above resulting in associated central canal and neural foraminal narrowing. Patient with MRI compatible pacemaker Lumbar spine MRI with levoscoliosis with multilevel degenerative changes of the above resulting in associated central canal and neural foraminal narrowing. POD#2 s/p lumbar decompression bilaterally facetectomies and foraminotomies L2- L3, L3-L4 and L4-5 and posterior spinal fusion L3-L4 L4-5 Per ortho for pain control, wound care, anticoagulation and activities Hgb 11.7 (EBL 400ml, pre-op hgb 13.4), down to 10.4 monitor with daily CBC Continue incentive spirometry, PT/OT when appropriate Okay to resume Eliquis Wednesday AM per Dr. Esteves Planning for dc to rehab (3) Chronic atrial fibrillation: Plan: Chronically anticoagulated on Eliquis Eliquis on hold, plan to resume 10/30 Cont metoprolol tartrate, diltiazem (4) Acute kidney injury superimposed on CKD: (5) Chronic kidney disease (CKD), stage III (moderate): Plan: Cr elevated to 1.74, iso water pill, recent npo etc -Holding Torsemide and Spironolactone, resume when able -gentle IVF, IOS -Continue to monitor BMP (6) Hypothyroidism: Plan: Continue levothyroxine (7) Chronic heart failure with preserved ejection fraction: Plan: Appears euvolemic Holding torsemide, spironolactone 2/2 NICOLÁS daily weight, strict intake output, low sodium diet (8) Tachy-noni syndrome: Plan: S/p pacemaker (9) Chronic respiratory failure: Plan: Chronic bronchitis, bronchiectasis On chronic 2-3 L oxygen via nasal cannula Continue oxygen supplementation Continue home inhalers, nebulizers (10) HTN (hypertension): Plan: Continue diltiazem, metoprolol tartrate chronic, stable (11) Hyperlipidemia: Plan: Continue atorvastatin (12) Anxiety and depression: Plan: Continue Lexapro (13) Restless leg syndrome: Plan: Continue ropinirole (14) Sleep apnea: Plan: BiPAP at bedtime DVT Prophylaxis Eliquis held until 12/07, SCDs for now Full Code as per discussion with pt Follows with Dr King for routine care Admission and Anticipated Discharge Date Admission Date: December 02, 2022 Subjective NAEO Pain well controlled, eager for dispo to rehab Review of Systems Review of Systems: All systems reviewed & are unremarkable except as noted in Subjective Physical Exam Constitutional: WD/WN, vitals as above Respiratory: normal respiratory effort, lungs clear to auscultation Cardiovascular: RRR, no murmur, no edema Gastrointestinal (Abdomen): normal bowel sounds, soft, nontender, no hepatosplenomegaly Results & Data Results & Data Vital Signs (Past 12 Hours) Vital Signs Temp Pulse Pulse Resp BP Pulse Ox O2 Del Method 12/05/22 10:00 Nasal Cannula 12/05/22 07:25 36.7 C 104 H 20 116/69 92 Nasal Cannula 12/05/22 07:05 108 H 18 92 Nasal Cannula O2 Flow Rate 12/05/22 10:00 4 12/05/22 07:25 4 12/05/22 07:05 4 Laboratory Results Short CBC 12/05/22 Range/Units 07:19 WBC 16.37 H (4.8-10.8) K/ul Hgb 10.4 L (14.0-18.0) g/dl Hct 32.4 L (42.0-52.0) % Plt Count 153 (130-400) K/uL BMP 12/05/22 07:19 Sodium 136 Potassium 5.0 Chloride 95 L Carbon Dioxide 37 H BUN 50 H Creatinine 1.74 H Glucose 119 H Calcium 9.6 Medications Administered Home Medications Medication Instructions Recorded Confirmed Last Taken albuterol sulfate 90 mcg/actuation 2 puff inhalation BID 08/03/22 11/30/22 08/19/22 04:00 aerosol inhaler apixaban 2.5 mg tablet (Eliquis) 2.5 mg PO BID 08/03/22 11/30/22 11/29/22 aspirin 81 mg capsule 81 mg PO QAM 08/03/22 11/30/22 08/19/22 04:00 atorvastatin 20 mg tablet (Lipitor) 20 mg PO HS 08/03/22 11/30/22 08/18/22 21:00 calcium carbonate 600 mg-vitamin 1 tab PO QAM 08/03/22 11/30/22 08/18/22 21:00 D3 10 mcg (400 unit) tablet (Calcium 600 + D(3)) cyclosporine 0.05 % eye drops in a 1 drp ophthalmic (eye) Q12H PRN 08/03/22 11/30/22 Unknown dropperette (Restasis) Dry Eye(S) diltiazem HCl 180 mg 180 mg PO QAM 08/03/22 11/30/22 11/29/22 capsule,extended release 24 hr escitalopram oxalate 20 mg tablet 20 mg PO QAM 08/03/22 11/30/22 11/29/22 (Lexapro) fluticasone 250 mcg-salmeterol 50 1 inh inhalation BID 08/03/22 11/30/22 08/19/22 04:00 mcg/dose blistr powdr for inhalation (Wixela Inhub) guaifenesin 600 mg tablet, 600 mg PO BID 08/03/22 11/30/22 08/19/22 04:00 extended release 12 hr (Mucinex) levothyroxine 75 mcg tablet 75 mcg PO QAM 08/03/22 11/30/22 11/30/22 lutein 20 mg tablet 20 mg PO HS 08/03/22 11/30/22 08/14/22 magnesium 200 mg tablet 400 mg PO HS 08/03/22 11/30/22 08/14/22 metoprolol tartrate 25 mg tablet 25 mg PO BID 08/03/22 11/30/22 11/29/22 mirtazapine 30 mg tablet (Remeron) 30 mg PO HS 08/03/22 11/30/22 11/29/22 multivitamin 1 tab PO QAM 08/03/22 11/30/22 08/14/22 olanzapine 5 mg tablet (Zyprexa) 5 mg PO HS 08/03/22 11/30/22 11/29/22 potassium chloride 10 mEq 10 meq PO QAM 08/03/22 11/30/22 11/29/22 capsule,extended release ropinirole 1 mg tablet 1 mg PO HS 08/03/22 11/30/22 11/29/22 spironolactone 25 mg tablet 12.5 mg PO UD 08/03/22 11/30/22 11/27/22 tamsulosin 0.4 mg capsule 0.4 mg PO QAM 08/03/22 11/30/22 08/19/22 04:00 acetaminophen 500 mg tablet 1,000 mg PO TID pain 30 days #180 08/17/22 11/30/22 08/16/22 (Tylenol Extra Strength) tabs sodium chloride 3 % for 3 ml inhalation BID 11/30/22 11/30/22 Unknown nebulization torsemide 20 mg tablet 40 mg PO DAILY 11/30/22 11/30/22 11/29/22 Active Medications Generic Name Dose Route Start Last Admin Trade Name Freq PRN Reason Stop Dose Admin Acetaminophen 1,000 mg 11/30/22 22:00 12/05/22 14:15 Acetaminophen 500 Mg Tab PO 12/30/22 21:59 1,000 mg Q8 IRMA Administration Hydrocodone Bitart/Acetaminophen 1 - 2 tab 12/03/22 17:13 12/05/22 09:48 Hydrocodone/Acetamophen 5/325mg Tab PO 12/17/22 17:12 1 tab Q4H PRN Administration Pain & Pre PT Albuterol 3 ml 12/01/22 09:45 12/05/22 07:04 Albut/Ipratrop 3mg/0.5mg Neb 3 Ml Vial NEB 12/31/22 09:44 3 ml BIDR IRMA Administration Protocol Aspirin 81 mg 12/01/22 09:00 12/05/22 09:17 Aspirin 81 Mg Ectab PO 12/31/22 08:59 81 mg QAM IRMA Administration Atorvastatin Calcium 20 mg 11/30/22 21:00 12/04/22 21:21 Atorvastatin 20 Mg Tab PO 12/30/22 20:59 20 mg HS IRMA Administration Calcium/Vitamin D 1 tab 12/01/22 09:00 12/05/22 09:50 Calcium 600mg + Vit D 400 Iu Tab PO 12/31/22 08:59 1 tab QAM IRMA Administration Diltiazem HCl 180 mg 12/01/22 09:00 12/05/22 09:51 Diltiazem Hcl 180 Mg Capcr PO 12/31/22 08:59 180 mg QAM IRMA Administration Escitalopram Oxalate 20 mg 12/01/22 09:00 12/05/22 09:51 Escitalopram Oxalate 20 Mg Tab PO 12/31/22 08:59 20 mg QAM IRMA Administration Fluticasone/Vilanterol 1 puffs 12/01/22 09:00 12/05/22 09:49 Fluticasone/Vilanterol 200/25mcg 14 Puffs/Inhaler INH 12/31/22 08:59 1 puffs DAILY IRMA Administration Guaifenesin 600 mg 11/30/22 21:00 12/05/22 09:52 Guaifenesin 600 Mg Tabcr PO 12/30/22 20:59 600 mg BID IRMA Administration Hydromorphone HCl 0.5 mg 12/03/22 17:13 12/04/22 02:43 Hydromorphone Inj 0.5 Mg/0.5 Ml Syr IV 12/17/22 17:12 0.5 mg Q3H PRN Administration MODERATE Pain (Scale 4,5,6) & Pre PT Dexamethasone 6 mg/ Syringe 1.5 mls @ 1 mls/min 12/04/22 09:00 12/05/22 09:19 IV 12/06/22 09:02 1 mls/min DAILY IRMA Administration Lactated Ringer's 1,000 mls @ 125 mls/hr 12/05/22 08:15 12/05/22 10:36 Lr IV 01/04/23 08:14 125 mls/hr .Q8H IRMA Administration Levothyroxine Sodium 75 mcg 12/03/22 06:30 12/05/22 06:38 Levothyroxine Sodium 75 Mcg Tablet PO 12/31/22 08:59 75 mcg DAILYBB IRMA Administration Magnesium Oxide 400 mg 11/30/22 21:00 12/04/22 21:18 Magnesium Oxide 400 Mg Tab PO 12/30/22 20:59 400 mg HS IRMA Administration Metoprolol Tartrate 25 mg 11/30/22 21:00 12/05/22 09:52 Metoprolol Tartrate 25 Mg Tab PO 12/30/22 20:59 25 mg BID IRMA Administration Mirtazapine 30 mg 11/30/22 21:00 12/04/22 21:18 Mirtazapine Tab 15 Mg Tab PO 12/30/22 20:59 30 mg HS IRMA Administration Olanzapine 5 mg 11/30/22 21:00 12/04/22 21:21 Olanzapine 5 Mg Tablet PO 12/30/22 20:59 5 mg HS IRMA Administration Polyethylene Glycol 17 gm 12/04/22 06:00 12/05/22 12:35 Polyethylene (Miralax) 17 Gm Pack PO 01/03/23 05:59 17 gm Q6 IRMA Administration Potassium Chloride 10 meq 12/01/22 09:00 12/05/22 09:56 Potassium Chloride 10 Meq Tabcr PO 12/31/22 08:59 10 meq QAM IRMA Administration Ropinirole HCl 1 mg 11/30/22 21:00 12/04/22 21:21 Ropinirole Hcl 1 Mg Tablet PO 12/30/22 20:59 1 mg HS IRMA Administration Senna/Docusate Sodium 2 tab 12/03/22 21:00 12/04/22 21:17 Docusate Sodium/Senna 50/8.6mg Tab PO 01/02/23 20:59 2 tab HS IRMA Administration Sodium Chloride 4 ml 11/30/22 19:00 12/05/22 07:04 Sodium Chlor 7% 4 Ml Neb INH 12/30/22 18:59 4 ml BIDR IRMA Administration Spironolactone 12.5 mg 12/02/22 09:00 12/04/22 08:00 Spironolactone 12.5 Mg Tab PO 01/01/23 08:59 12.5 mg MoWeFr IRMA Administration Tamsulosin HCl 0.4 mg 12/01/22 09:00 12/05/22 09:53 Tamsulosin Hcl 0.4 Mg Cap PO 12/31/22 08:59 0.4 mg QAM IRMA Administration Torsemide 40 mg 12/01/22 09:00 12/04/22 08:00 Torsemide 20 Mg Tab PO 12/31/22 08:59 40 mg DAILY IRMA Administration
[2022-12-05] MEDS: ATORVASTATIN 20 MG TAB PO SCH (20:00)
[2022-12-05] MEDS: OLANZapine 5 MG TABLET PO SCH (20:00)
[2022-12-05] MEDS: rOPINIRole HCL 1 MG TABLET PO SCH (20:00)
[2022-12-05] MEDS: MIRTAZAPINE TAB 15 MG TAB PO SCH (20:01)
[2022-12-05] MEDS: MAGNESIUM OXIDE 400 MG TAB PO SCH (20:01)
[2022-12-05] MEDS: LORazepam 0.5 MG TAB PO PRN (20:04)
[2022-12-05] MEDS: DOCUSATE SODIUM/SENNA 50/8.6MG TAB PO SCH (20:10)
[2022-12-06] MEDS: POLYETHYLENE (MIRALAX) 17 GM PACK PO SCH ×2 (00:41→06:03)
[2022-12-06] MEDS: LACTATED RINGER'S 1,000 ML IV SCH ×2 (00:42→03:09)
[2022-12-06] MEDS: LORazepam 0.5 MG TAB PO PRN (03:10)
[2022-12-06] MEDS: traMADol HCL 50 MG TABLET PO PRN (03:14)
[2022-12-06] MEDS: LEVOTHYROXINE SODIUM 75 MCG TABLET PO SCH (06:04)
[2022-12-06] MEDS: ACETAMINOPHEN 500 MG TAB PO SCH ×3 (06:04→20:23)
[2022-12-06] MEDS: SODIUM CHLOR 7% 4 ML NEB INH SCH ×2 (07:04→19:39)
[2022-12-06] MEDS: ALBUT/IPRATROP 3MG/0.5MG NEB 3 ML VIAL NEB SCH ×2 (07:04→19:39)
[2022-12-06] MEDS ORDERED: FUROSEMIDE 40 MG/4 ML VIAL IV ONE (08:06)
[2022-12-06 09:14] LABS: Hematocrit (blood only) 32.6 % (42.0-52.0); Hemoglobin 10.5 g/dl (14.0-18.0); Mean Corpuscular Hemoglobin 30.2 pg (25.0-34.0); Mean Corpuscular Hgb Conc 32.2 g/dL (32.0-36.0); Mean Corpuscular Volume 93.7 fL (80.0-100.0); Mean Platelet Volume 11.9 fL (9.4-12.4); Platelet Count 157 K/uL (130-400); RDW Coefficient of Variation 15.2 % (11.5-14.5); RDW Standard Deviation 51.9 fL (36.4-46.3); Red Blood Count 3.48 M/uL (4.70-6.10); White Blood Count 13.97 K/ul (4.8-10.8)
[2022-12-06 09:35] LABS: BUN Creatinine Ratio 35.5 (10-20); Calcium 9.8 mg/dl (8.6-10.3); Creatinine Clr Calc Pharmacy 63.1 ml/min; Est GFR (African American) 72.1 ml/min; Est GFR (Non-African American) 62.2 ml/min; Potassium 4.6 mmol/L (3.5-5.1)
[2022-12-06] MEDS: CALCIUM 600MG + VIT D 400 IU TAB PO SCH (10:01)
[2022-12-06] MEDS: dilTIAZem HCL 180 MG CAPCR PO SCH (10:02)
[2022-12-06] MEDS: ASPIRIN 81 MG ECTAB PO SCH (10:02)
[2022-12-06] MEDS: ESCITALOPRAM OXALATE 20 MG TAB PO SCH (10:03)
[2022-12-06] MEDS: guaiFENesin 600 MG TABCR PO SCH ×2 (10:03→20:23)
[2022-12-06] MEDS: POTASSIUM CHLORIDE 10 MEQ TABCR PO SCH (10:04)
[2022-12-06] MEDS: METOPROLOL TARTRATE 25 MG TAB PO SCH ×2 (10:04→20:23)
[2022-12-06] MEDS: TAMSULOSIN HCL 0.4 MG CAP PO SCH (10:04)
[2022-12-06] MEDS: FLUTICASONE/VILANTEROL 200/25MCG 14 PUFFS/INHALER INH SCH (10:05)
[2022-12-06] MEDS: dexAMETHasone 6 MG in SYRINGE 0 ML IV SCH ×2 (10:07→11:19)
--- NOTE | 2022-12-06 13:47 | Hospitalist Progress Note ---
Date of Service December 06, 2022 Assessment & Plan (1) Lumbar spinal stenosis: (2) Weakness: Plan: Patient is 82-year-old male with PMH chronic atrial fibrillation chronically anticoagulated on Eliquis, tachybradycardia syndrome s/p pacemaker, HLD, chronic respiratory failure on chronic oxygen, chronic CHF preserved EF, hypothyroidism, CKD III, depression, anxiety, RLS, RUDY presented to ER with C/O progressive BLE weakness. CT head: No acute intracranial findings No significant electrolyte abnormality, no signs of acute infection CT lumbar Spine: IMPRESSION:1. No acute fracture or subluxation.2. Levoscoliosis with multilevel degenerative changes of the above resulting in associated central canal and neural foraminal narrowing. Patient with MRI compatible pacemaker Lumbar spine MRI with levoscoliosis with multilevel degenerative changes of the above resulting in associated central canal and neural foraminal narrowing. POD#3 s/p lumbar decompression bilaterally facetectomies and foraminotomies L2- L3, L3-L4 and L4-5 and posterior spinal fusion L3-L4 L4-5 Per ortho for pain control, wound care, anticoagulation and activities Hgb 11.7 (EBL 400ml, pre-op hgb 13.4), down to 10.4 monitor with daily CBC Continue incentive spirometry, PT/OT when appropriate Okay to resume Eliquis Wednesday AM per Dr. Esteves; anticipate MRI 12/07 Planning for dc to rehab (3) Chronic atrial fibrillation: Plan: Chronically anticoagulated on Eliquis Eliquis on hold, plan to resume 12/07 Cont metoprolol tartrate, diltiazem (4) Acute kidney injury superimposed on CKD: (5) Chronic kidney disease (CKD), stage III (moderate): Plan: Cr elevated to 1.74, iso water pill, recent npo etc -Resume Torsemide and Spironolactone -Continue to monitor BMP (6) Hypothyroidism: Plan: Continue levothyroxine (7) Chronic heart failure with preserved ejection fraction: Plan: Appears euvolemic Resume torsemide, spironolactone daily weight, strict intake output, low sodium diet (8) Tachy-noni syndrome: Plan: S/p pacemaker (9) Chronic respiratory failure: Plan: Chronic bronchitis, bronchiectasis On chronic 2-3 L oxygen via nasal cannula Continue oxygen supplementation Continue home inhalers, nebulizers (10) HTN (hypertension): Plan: Continue diltiazem, metoprolol tartrate chronic, stable (11) Hyperlipidemia: Plan: Continue atorvastatin (12) Anxiety and depression: Plan: Continue Lexapro (13) Restless leg syndrome: Plan: Continue ropinirole (14) Sleep apnea: Plan: BiPAP at bedtime DVT Prophylaxis Eliquis held until 12/07, SCDs for now Full Code as per discussion with pt Follows with Dr King for routine care Admission and Anticipated Discharge Date Admission Date: December 02, 2022 Subjective NAEO Responded to IVF Sitting in bedside chair this am, states he feels good to be out of bed; denies any notable improvement in symptoms Review of Systems Review of Systems: All systems reviewed & are unremarkable except as noted in Subjective Physical Exam Constitutional: WD/WN, vitals as above Respiratory: crackles bilateral bases Cardiovascular: RRR, no murmur, no edema Gastrointestinal (Abdomen): normal bowel sounds, soft, nontender, no hepatosplenomegaly Results & Data Results & Data Vital Signs (Past 12 Hours) Vital Signs Temp Pulse Pulse Resp BP Pulse Ox O2 Del Method 12/06/22 09:30 Nasal Cannula 12/06/22 08:20 36.6 C 88 18 152/79 H 94 Nasal Cannula 12/06/22 07:06 85 16 95 Nasal Cannula O2 Flow Rate 12/06/22 09:30 4 12/06/22 08:20 3 12/06/22 07:06 4 Laboratory Results Short CBC 12/06/22 Range/Units 08:27 WBC 13.97 H (4.8-10.8) K/ul Hgb 10.5 L (14.0-18.0) g/dl Hct 32.6 L (42.0-52.0) % Plt Count 157 (130-400) K/uL BMP 12/06/22 08:27 Sodium 137 Potassium 4.6 Chloride 97 L Carbon Dioxide 35 H BUN 39 H Creatinine 1.10 D Glucose 113 H Calcium 9.8 Medications Administered Home Medications Medication Instructions Recorded Confirmed Last Taken albuterol sulfate 90 mcg/actuation 2 puff inhalation BID 08/03/22 11/30/22 08/19/22 04:00 aerosol inhaler apixaban 2.5 mg tablet (Eliquis) 2.5 mg PO BID 08/03/22 11/30/22 11/29/22 aspirin 81 mg capsule 81 mg PO QAM 08/03/22 11/30/22 08/19/22 04:00 atorvastatin 20 mg tablet (Lipitor) 20 mg PO HS 08/03/22 11/30/22 08/18/22 21:00 calcium carbonate 600 mg-vitamin 1 tab PO QAM 08/03/22 11/30/22 08/18/22 21:00 D3 10 mcg (400 unit) tablet (Calcium 600 + D(3)) cyclosporine 0.05 % eye drops in a 1 drp ophthalmic (eye) Q12H PRN 08/03/22 11/30/22 Unknown dropperette (Restasis) Dry Eye(S) diltiazem HCl 180 mg 180 mg PO QAM 08/03/22 11/30/22 11/29/22 capsule,extended release 24 hr escitalopram oxalate 20 mg tablet 20 mg PO QAM 08/03/22 11/30/22 11/29/22 (Lexapro) fluticasone 250 mcg-salmeterol 50 1 inh inhalation BID 08/03/22 11/30/22 08/19/22 04:00 mcg/dose blistr powdr for inhalation (Wixela Inhub) guaifenesin 600 mg tablet, 600 mg PO BID 08/03/22 11/30/22 08/19/22 04:00 extended release 12 hr (Mucinex) levothyroxine 75 mcg tablet 75 mcg PO QAM 08/03/22 11/30/22 11/30/22 lutein 20 mg tablet 20 mg PO HS 08/03/22 11/30/22 08/14/22 magnesium 200 mg tablet 400 mg PO HS 08/03/22 11/30/22 08/14/22 metoprolol tartrate 25 mg tablet 25 mg PO BID 08/03/22 11/30/22 11/29/22 mirtazapine 30 mg tablet (Remeron) 30 mg PO HS 08/03/22 11/30/22 11/29/22 multivitamin 1 tab PO QAM 08/03/22 11/30/22 08/14/22 olanzapine 5 mg tablet (Zyprexa) 5 mg PO HS 08/03/22 11/30/22 11/29/22 potassium chloride 10 mEq 10 meq PO QAM 08/03/22 11/30/2223 capsule,extended release ropinirole 1 mg tablet 1 mg PO HS 08/03/22 11/30/22 11/29/22 spironolactone 25 mg tablet 12.5 mg PO UD 08/03/22 11/30/22 11/27/22 tamsulosin 0.4 mg capsule 0.4 mg PO QAM 08/03/22 11/30/22 08/19/22 04:00 acetaminophen 500 mg tablet 1,000 mg PO TID pain 30 days #180 08/17/22 11/30/22 08/16/22 (Tylenol Extra Strength) tabs sodium chloride 3 % for 3 ml inhalation BID 11/30/22 11/30/22 Unknown nebulization torsemide 20 mg tablet 40 mg PO DAILY 11/30/22 11/30/22 11/29/22 Active Medications Generic Name Dose Route Start Last Admin Trade Name Freq PRN Reason Stop Dose Admin Acetaminophen 1,000 mg 11/30/22 22:00 12/06/22 13:36 Acetaminophen 500 Mg Tab PO 12/30/22 21:59 1,000 mg Q8 IRMA Administration Hydrocodone Bitart/Acetaminophen 1 - 2 tab 12/03/22 17:13 12/05/22 09:48 Hydrocodone/Acetamophen 5/325mg Tab PO 12/17/22 17:12 1 tab Q4H PRN Administration Pain & Pre PT Albuterol 3 ml 12/01/22 09:45 12/06/22 07:04 Albut/Ipratrop 3mg/0.5mg Neb 3 Ml Vial NEB 12/31/22 09:44 3 ml BIDR IRMA Administration Protocol Aspirin 81 mg 12/01/22 09:00 12/06/22 10:02 Aspirin 81 Mg Ectab PO 12/31/22 08:59 81 mg QAM IRMA Administration Atorvastatin Calcium 20 mg 11/30/22 21:00 12/05/22 20:00 Atorvastatin 20 Mg Tab PO 12/30/22 20:59 20 mg HS IRMA Administration Calcium/Vitamin D 1 tab 12/01/22 09:00 12/06/22 10:01 Calcium 600mg + Vit D 400 Iu Tab PO 12/31/22 08:59 1 tab QAM IRMA Administration Diltiazem HCl 180 mg 12/01/22 09:00 12/06/22 10:02 Diltiazem Hcl 180 Mg Capcr PO 12/31/22 08:59 180 mg QAM IRMA Administration Escitalopram Oxalate 20 mg 12/01/22 09:00 12/06/22 10:03 Escitalopram Oxalate 20 Mg Tab PO 12/31/22 08:59 20 mg QAM IRMA Administration Fluticasone/Vilanterol 1 puffs 12/01/22 09:00 12/06/22 10:05 Fluticasone/Vilanterol 200/25mcg 14 Puffs/Inhaler INH 12/31/22 08:59 1 puffs DAILY IRMA Administration Guaifenesin 600 mg 11/30/22 21:00 12/06/22 10:03 Guaifenesin 600 Mg Tabcr PO 12/30/22 20:59 600 mg BID IRMA Administration Hydromorphone HCl 0.5 mg 12/03/22 17:13 12/04/22 02:43 Hydromorphone Inj 0.5 Mg/0.5 Ml Syr IV 12/17/22 17:12 0.5 mg Q3H PRN Administration MODERATE Pain (Scale 4,5,6) & Pre PT Levothyroxine Sodium 75 mcg 12/03/22 06:30 12/06/22 06:04 Levothyroxine Sodium 75 Mcg Tablet PO 12/31/22 08:59 75 mcg DAILYBB IRMA Administration Lorazepam 0.5 mg 12/03/22 17:13 12/06/22 03:10 Lorazepam 0.5 Mg Tab PO 01/02/23 17:12 0.5 mg Q8H PRN Administration Sedation/Anxiety Magnesium Oxide 400 mg 11/30/22 21:00 12/05/22 20:01 Magnesium Oxide 400 Mg Tab PO 12/30/22 20:59 400 mg HS IRMA Administration Metoprolol Tartrate 25 mg 11/30/22 21:00 12/06/22 10:04 Metoprolol Tartrate 25 Mg Tab PO 12/30/22 20:59 25 mg BID IRMA Administration Mirtazapine 30 mg 11/30/22 21:00 12/05/22 20:01 Mirtazapine Tab 15 Mg Tab PO 12/30/22 20:59 30 mg HS IRMA Administration Olanzapine 5 mg 11/30/22 21:00 12/05/22 20:00 Olanzapine 5 Mg Tablet PO 12/30/22 20:59 5 mg HS IRMA Administration Potassium Chloride 10 meq 12/01/22 09:00 12/06/22 10:04 Potassium Chloride 10 Meq Tabcr PO 12/31/22 08:59 10 meq QAM IRMA Administration Ropinirole HCl 1 mg 11/30/22 21:00 12/05/22 20:00 Ropinirole Hcl 1 Mg Tablet PO 12/30/22 20:59 1 mg HS IRMA Administration Senna/Docusate Sodium 2 tab 12/03/22 21:00 12/05/22 20:10 Docusate Sodium/Senna 50/8.6mg Tab PO 01/02/23 20:59 2 tab HS IRMA Administration Sodium Chloride 4 ml 11/30/22 19:00 12/06/22 07:04 Sodium Chlor 7% 4 Ml Neb INH 12/30/22 18:59 4 ml BIDR IRMA Administration Spironolactone 12.5 mg 12/02/22 09:00 12/04/22 08:00 Spironolactone 12.5 Mg Tab PO 01/01/23 08:59 12.5 mg MoWeFr IRMA Administration Tamsulosin HCl 0.4 mg 12/01/22 09:00 12/06/22 10:04 Tamsulosin Hcl 0.4 Mg Cap PO 12/31/22 08:59 0.4 mg QAM IRMA Administration Torsemide 40 mg 12/01/22 09:00 12/04/22 08:00 Torsemide 20 Mg Tab PO 12/31/22 08:59 40 mg DAILY IMRA Administration Tramadol HCl 50 - 100 mg 12/03/22 17:13 12/06/22 03:14 Tramadol Hcl 50 Mg Tablet PO 01/02/23 17:12 50 mg Q4H PRN Administration Moderate-Severe pain & Pre PT
[2022-12-06] MEDS: DOCUSATE SODIUM/SENNA 50/8.6MG TAB PO SCH (20:22)
[2022-12-06] MEDS: MAGNESIUM OXIDE 400 MG TAB PO SCH (20:23)
[2022-12-06] MEDS: OLANZapine 5 MG TABLET PO SCH (20:23)
[2022-12-06] MEDS: ATORVASTATIN 20 MG TAB PO SCH (20:23)
[2022-12-06] MEDS: rOPINIRole HCL 1 MG TABLET PO SCH (20:23)
[2022-12-06] MEDS: MIRTAZAPINE TAB 15 MG TAB PO SCH (20:23)
[2022-12-07] MEDS: LEVOTHYROXINE SODIUM 75 MCG TABLET PO SCH (05:21)
[2022-12-07] MEDS: ACETAMINOPHEN 500 MG TAB PO SCH ×3 (05:21→20:35)
[2022-12-07] MEDS: SODIUM CHLOR 7% 4 ML NEB INH SCH ×2 (07:12→19:29)
[2022-12-07] MEDS: ALBUT/IPRATROP 3MG/0.5MG NEB 3 ML VIAL NEB SCH ×2 (07:12→19:29)
[2022-12-07 07:44] LABS: Hematocrit (blood only) 32.8 % (42.0-52.0); Hemoglobin 10.6 g/dl (14.0-18.0); Mean Corpuscular Hemoglobin 30.8 pg (25.0-34.0); Mean Corpuscular Hgb Conc 32.3 g/dL (32.0-36.0); Mean Corpuscular Volume 95.3 fL (80.0-100.0); Mean Platelet Volume 11.8 fL (9.4-12.4); Platelet Count 162 K/uL (130-400); RDW Coefficient of Variation 15.4 % (11.5-14.5); RDW Standard Deviation 53.7 fL (36.4-46.3); Red Blood Count 3.44 M/uL (4.70-6.10); White Blood Count 12.34 K/ul (4.8-10.8)
[2022-12-07 08:05] LABS: BUN Creatinine Ratio 32.2 (10-20); Calcium 9.6 mg/dl (8.6-10.3); Creatinine Clr Calc Pharmacy 58.8 ml/min; Est GFR (African American) 66.2 ml/min; Est GFR (Non-African American) 57.1 ml/min; Magnesium 2.4 mg/dl (1.7-2.4); Phosphorus 3.3 mg/dl (2.5-4.9); Potassium 4.9 mmol/L (3.5-5.1)
[2022-12-07] MEDS ORDERED: APIXABAN 2.5 MG TAB PO SCH (09:00)
[2022-12-07] MEDS: ASPIRIN 81 MG ECTAB PO SCH (09:40)
[2022-12-07] MEDS: CALCIUM 600MG + VIT D 400 IU TAB PO SCH (09:40)
[2022-12-07] MEDS: guaiFENesin 600 MG TABCR PO SCH ×2 (09:41→20:36)
[2022-12-07] MEDS: ESCITALOPRAM OXALATE 20 MG TAB PO SCH (09:41)
[2022-12-07] MEDS: FLUTICASONE/VILANTEROL 200/25MCG 14 PUFFS/INHALER INH SCH (09:41)
[2022-12-07] MEDS: METOPROLOL TARTRATE 25 MG TAB PO SCH ×2 (09:42→20:36)
[2022-12-07] MEDS: SPIRONOLACTONE 12.5 MG TAB PO SCH (09:42)
[2022-12-07] MEDS: TAMSULOSIN HCL 0.4 MG CAP PO SCH (09:42)
[2022-12-07] MEDS: TORSEMIDE 10 MG TAB PO SCH (09:42)
[2022-12-07] MEDS: dilTIAZem HCL 180 MG CAPCR PO SCH (09:43)
[2022-12-07] MEDS: POTASSIUM CHLORIDE 10 MEQ TABCR PO SCH (09:48)
[2022-12-07] MEDS ORDERED: LORazepam 2 MG/1 ML VIAL IV PRN (10:40)
--- NOTE | 2022-12-07 11:23 | Orthopedic Progress Note ---
Date of Service December 07, 2022 Assessment & Plan (1) Lumbar spinal stenosis: Plan: At this time I would like to obtain an MRI thoracic spine to rule out any additional neural compression. We will continue physical therapy as tolerated. Dressing change and drain removal today. He will be ready for rehab soon. Admission and Anticipated Discharge Date Admission Date: December 02, 2022 Subjective Patient's back pain is controlled leg symptoms improving. He is tolerating ambulation in chair incrementally better daily Physical Exam Physical Exam: Patient is in the chair at the bedside. Discussed active testing. Sensory is intact. Results & Data Vital Signs (Past 12 Hours) Vital Signs Temp Pulse Pulse Resp BP BP Pulse Ox 12/07/22 08:15 12/07/22 09:47 85 129/80 12/07/22 07:54 36.4 C L 71 16 129/82 97 12/07/22 07:14 86 18 92 O2 Del Method O2 Flow Rate 12/07/22 08:15 Nasal Cannula 3 12/07/22 09:47 12/07/22 07:54 Nasal Cannula 2 12/07/22 07:14 Nasal Cannula 3
--- NOTE | 2022-12-07 13:32 | Magnetic Resonance Report ---
MR thoracic spine wo con CLINICAL HISTORY: leg weakness TECHNIQUE: Multiplanar sequences through the thoracic spine were obtained, without intravenous contra st. Comparison: None available at the time of this dictation. FINDINGS: Exam is limited by patient motion. Degenerative disc disease is seen with multiple posterior disc bul ges. The most prominent is at T11-T12 and appears to result in severe canal stenosis, AP diameter 3 m m, with moderate bilateral foraminal stenosis. The spinal canal and neural foramina are patent. The spinal ligaments are intact, without evidence of disruption or abnormal signal intensity. The spi nal cord is normal in signal intensity and there is no evidence of cord contusion. There is no eviden ce of an extradural, intradural, extramedullary or intramedullary lesion. Visualized soft tissues are normal. IMPRESSION: Highly limited exam due to patient motion. There is a broad-based posterior disc bulge at T11-T12 wit h likely severe canal stenosis, AP diameter of 3 mm, and moderate bilateral neuroforaminal stenosis. ACT 112: Negative or not required by law. Electronically signed by: Beka Merlos M.D. 12/07/2022 1:30 PM
--- NOTE | 2022-12-07 14:49 | Hospitalist Progress Note ---
Date of Service December 07, 2022 Assessment & Plan (1) Lumbar spinal stenosis: (2) Weakness: Plan: Patient is 82-year-old male with PMH chronic atrial fibrillation chronically anticoagulated on Eliquis, tachybradycardia syndrome s/p pacemaker, HLD, chronic respiratory failure on chronic oxygen, chronic CHF preserved EF, hypothyroidism, CKD III, depression, anxiety, RLS, RUDY presented to ER with C/O progressive BLE weakness. CT head: No acute intracranial findings CT lumbar Spine: IMPRESSION:1. No acute fracture or subluxation.2. Levoscoliosis with multilevel degenerative changes of the above resulting in associated central canal and neural foraminal narrowing. Lumbar spine MRI with levoscoliosis with multilevel degenerative changes of the above resulting in associated central canal and neural foraminal narrowing. 12/03: s/p lumbar decompression bilaterally facetectomies and foraminotomies L2- L3, L3-L4 and L4-5 and posterior spinal fusion L3-L4 L4-[address] Esteves Activity and wound care orders as per ortho Pain control with bowel regimen PT/OT Monitor H/H for acute blood loss anemia and transfuse blood products PRN EBL 400 cc, drain output a 55 cc to date pre op Hgb 11.7 --> 10.6 today Thoracic spine MRI ordered by spine Ortho due to ongoing weakness: There is a broad-based posterior disc bulge at T11-T12 with likely severe canal stenosis, AP diameter of 3 mm, and moderate bilateral neuroforaminal stenosis. Possible need for additional decompression per spine Ortho, will monitor over the next few days (3) Chronic atrial fibrillation: Plan: Eliquis on hold postoperatively, given potential need for additional surgery, will transition to full dose Lovenox today -- discussed with spine ortho Cont metoprolol tartrate, diltiazem (4) Acute kidney injury superimposed on CKD: (5) Chronic kidney disease (CKD), stage III (moderate): Plan: Creatinine peaked to 1.7 on 12/05 -in the setting of surgery, n.p.o. status Resolved to 1.1 today (6) Hypothyroidism: Plan: Chronic, stable Continue levothyroxine (7) Chronic heart failure with preserved ejection fraction: Plan: Appears euvolemic Torsemide and spironolactone resumed (8) Tachy-noni syndrome: Plan: S/p pacemaker (9) Chronic respiratory failure: Plan: Chronic bronchitis, bronchiectasis On chronic 2-3 L oxygen via nasal cannula Continue oxygen supplementation Continue home inhalers, nebulizers (10) HTN (hypertension): Plan: Continue diltiazem, metoprolol tartrate chronic, stable (11) Hyperlipidemia: Plan: Continue atorvastatin (12) Anxiety and depression: Plan: Continue Lexapro (13) Restless leg syndrome: Plan: Continue ropinirole (14) Sleep apnea: Plan: BiPAP at bedtime DVT PROPHYLAXIS Starting full dose Lovenox as above Dispo -pending, may need additional surgical intervention, PT/OT, case management following Patient seen in collaboration with Dr. Askew. Admission and Anticipated Discharge Date Admission Date: December 02, 2022 Supervising Physician Co-Signing Physician Notes I have seen and discussed the case with the collaborating TILE MECHANIC HELPER. I agree with the above H&P. I have reviewed and confirmed the patients medical history, the findings on physical examination, and the patients diagnosis and treatment plan with [facility] TILE MECHANIC HELPER agree with the information documented. In short, Mr. May is a gentleman with complex medical history as above, with recent lumbar decompression and continued weakness--a thoracic mri was obtained which revealed notable stenosis at the level of T11-T12. Ortho on consult, possible decompression in coming days given patient's poor response to recent lumbar decompression. Rest of plan as above Subjective Follow-up for spinal stenosis s/p lumbar decompression and fusion. Patient seen and examined. Reports back pain is mostly well controlled, reports ongoing weakness of the bilateral lower extremities. Denies numbness and tingling to lower extremities. Urinating and + BM without difficulty. No chest pain or shortness of breath. Denies abdominal pain and nausea. Physical Exam Constitutional: WD/WN, vitals as above no acute distress Sitting up in the chair Respiratory: normal respiratory effort, lungs clear to auscultation Cardiovascular: Rate/Rhythm: regular rhythm and + irregularly irregular Vessels: normal peripheral pulses Extremities: no edema Gastrointestinal (Abdomen): Percussion/Palpation: abdomen soft; abdomen nontender Musculoskeletal: S/p back surgery, dressing CDI, drain in place draining serosanguineous drainage Skin: no rashes, warm and dry Neurologic: no focal motor deficits Psychiatric: A+Ox3, euthymic affect Results & Data Results & Data Vital Signs (Past 12 Hours) Vital Signs Temp Pulse Pulse Resp BP BP Pulse Ox 10/30/23 08:15 12/07/22 09:47 85 129/80 12/07/22 07:54 36.4 C L 71 16 129/82 97 12/07/22 07:14 86 18 92 O2 Del Method O2 Flow Rate 12/07/22 08:15 Nasal Cannula 3 12/07/22 09:47 12/07/22 07:54 Nasal Cannula 2 12/07/22 07:14 Nasal Cannula 3 Laboratory Results Short CBC 12/07/22 Range/Units 06:55 WBC 12.34 H (4.8-10.8) K/ul Hgb 10.6 L (14.0-18.0) g/dl Hct 32.8 L (42.0-52.0) % Plt Count 162 (130-400) K/uL BMP 12/07/22 06:55 Sodium 137 Potassium 4.9 Chloride 97 L Carbon Dioxide 35 H BUN 38 H Creatinine 1.18 Glucose 112 H Calcium 9.6 Diagnostic Findings Thoracic Spine MRI 12/07/22 07:56 MR thoracic spine wo con CLINICAL HISTORY: leg weakness TECHNIQUE: Multiplanar sequences through the thoracic spine were obtained, without intravenous contrast. Comparison: None available at the time of this dictation. FINDINGS: Exam is limited by patient motion. Degenerative disc disease is seen with multiple posterior disc bulges. The most prominent is at T11-T12 and appears to result in severe canal stenosis, AP diameter 3 mm, with moderate bilateral foraminal stenosis. The spinal canal and neural foramina are patent. The spinal ligaments are intact, without evidence of disruption or abnormal signal intensity. The spinal cord is normal in signal intensity and there is no evidence of cord contusion. There is no evidence of an extradural, intradural, extramedullary or intramedullary lesion. Visualized soft tissues are normal. IMPRESSION: Highly limited exam due to patient motion. There is a broad-based posterior disc bulge at T11-T12 with likely severe canal stenosis, AP diameter of 3 mm, and moderate bilateral neuroforaminal stenosis. ACT 112: Negative or not required by law. Electronically signed by: Beka Merlos M.D. 12/07/2022 1:30 PM
[2022-12-07] MEDS ORDERED: ENOXAPARIN 1 MG/KG SC SCH (15:00)
[2022-12-07] MEDS: MIRTAZAPINE TAB 15 MG TAB PO SCH (20:35)
[2022-12-07] MEDS: rOPINIRole HCL 1 MG TABLET PO SCH (20:35)
[2022-12-07] MEDS: DOCUSATE SODIUM/SENNA 50/8.6MG TAB PO SCH (20:35)
[2022-12-07] MEDS: OLANZapine 5 MG TABLET PO SCH (20:35)
[2022-12-07] MEDS: ATORVASTATIN 20 MG TAB PO SCH (20:36)
[2022-12-07] MEDS: MAGNESIUM OXIDE 400 MG TAB PO SCH (20:36)
[2022-12-07] MEDS: ENOXAPARIN 100 MG/1ML SYR SQ SCH (21:17)
[2022-12-08] MEDS: HYDROCODONE/ACETAMOPHEN 5/325MG TAB PO PRN ×4 (02:29→23:55)
[2022-12-08] MEDS: LEVOTHYROXINE SODIUM 75 MCG TABLET PO SCH (05:28)
[2022-12-08] MEDS: ACETAMINOPHEN 500 MG TAB PO SCH ×3 (05:29→21:39)
[2022-12-08] MEDS: ALBUT/IPRATROP 3MG/0.5MG NEB 3 ML VIAL NEB SCH ×2 (06:56→19:29)
[2022-12-08] MEDS: SODIUM CHLOR 7% 4 ML NEB INH SCH ×2 (06:56→19:28)
[2022-12-08] MEDS: ASPIRIN 81 MG ECTAB PO SCH (07:33)
[2022-12-08] MEDS: TORSEMIDE 10 MG TAB PO SCH (07:33)
[2022-12-08] MEDS: guaiFENesin 600 MG TABCR PO SCH ×2 (07:33→21:39)
[2022-12-08] MEDS: dilTIAZem HCL 180 MG CAPCR PO SCH (07:33)
[2022-12-08] MEDS: ESCITALOPRAM OXALATE 20 MG TAB PO SCH (07:34)
[2022-12-08] MEDS: TAMSULOSIN HCL 0.4 MG CAP PO SCH (07:34)
[2022-12-08] MEDS: FLUTICASONE/VILANTEROL 200/25MCG 14 PUFFS/INHALER INH SCH (07:34)
[2022-12-08] MEDS: CALCIUM 600MG + VIT D 400 IU TAB PO SCH (07:34)
[2022-12-08] MEDS: METOPROLOL TARTRATE 25 MG TAB PO SCH ×2 (07:34→21:39)
[2022-12-08] MEDS: ENOXAPARIN 100 MG/1ML SYR SQ SCH ×2 (07:35→12:49)
[2022-12-08] MEDS: POTASSIUM CHLORIDE 10 MEQ TABCR PO SCH (07:36)
[2022-12-08 08:17] LABS: Hematocrit (blood only) 32.9 % (42.0-52.0); Hemoglobin 10.7 g/dl (14.0-18.0); Mean Corpuscular Hemoglobin 30.3 pg (25.0-34.0); Mean Corpuscular Hgb Conc 32.5 g/dL (32.0-36.0); Mean Corpuscular Volume 93.2 fL (80.0-100.0); Mean Platelet Volume 11.3 fL (9.4-12.4); Platelet Count 189 K/uL (130-400); RDW Coefficient of Variation 15.5 % (11.5-14.5); RDW Standard Deviation 53.1 fL (36.4-46.3); Red Blood Count 3.53 M/uL (4.70-6.10); White Blood Count 13.71 K/ul (4.8-10.8)
[2022-12-08 08:44] LABS: BUN Creatinine Ratio 33.1 (10-20); Calcium 9.5 mg/dl (8.6-10.3); Creatinine Clr Calc Pharmacy 58.8 ml/min; Est GFR (African American) 66.2 ml/min; Est GFR (Non-African American) 57.1 ml/min; Potassium 4.1 mmol/L (3.5-5.1)
--- NOTE | 2022-12-08 13:18 | Orthopedic Progress Note ---
Date of Service December 08, 2022 Assessment & Plan (1) Myelopathy concurrent with and due to spinal stenosis of thoracic region: Plan: MRI of the thoracic spine is complete and available for review. It demonstrates significant stenosis secondary to bony overgrowth and disc herniation between T10 and T12. This undoubtedly is contributing to his lower extremity dysfunction. I discussed his films with the patient today and he is comfortable with proceeding with surgical invention. It would require a lumbar decompression T10-T12 with possible fusion. Risk benefits pros cons alternatives were outlined in detail. At this time we will make him n.p.o. after midnight plan for surgery tomorrow. Admission and Anticipated Discharge Date Admission Date: December 02, 2022 Subjective Continued bilateral leg weakness with diffuse numbness Physical Exam Physical Exam: On exam patient is currently in bed. He is comfortable. He has reasonable motor function lower extremities but deficits to sensitivity. Results & Data Vital Signs (Past 12 Hours) Vital Signs Temp Pulse Resp BP Pulse Ox O2 Del Method O2 Flow Rate 12/08/22 11:22 36.7 C 68 15 124/59 L 98 Nasal Cannula 3 12/08/22 07:37 36.5 C 88 14 136/82 98 Room Air
--- NOTE | 2022-12-08 17:38 | Hospitalist Progress Note ---
Date of Service December 08, 2022 Assessment & Plan (1) Lumbar spinal stenosis: (2) Weakness: Plan: Patient is 82-year-old male with PMH chronic atrial fibrillation chronically anticoagulated on Eliquis, tachybradycardia syndrome s/p pacemaker, HLD, chronic respiratory failure on chronic oxygen, chronic CHF preserved EF, hypothyroidism, CKD III, depression, anxiety, RLS, RUDY presented to ER with C/O progressive BLE weakness. CT head: No acute intracranial findings CT lumbar Spine: IMPRESSION:1. No acute fracture or subluxation.2. Levoscoliosis with multilevel degenerative changes of the above resulting in associated central canal and neural foraminal narrowing. Lumbar spine MRI with levoscoliosis with multilevel degenerative changes of the above resulting in associated central canal and neural foraminal narrowing. 12/03: s/p lumbar decompression bilaterally facetectomies and foraminotomies L2- L3, L3-L4 and L4-5 and posterior spinal fusion L3-L4 L4-[address] Esteves Activity and wound care orders as per ortho Pain control with bowel regimen PT/OT Monitor H/H for acute blood loss anemia and transfuse blood products PRN EBL 400 cc, drain output 855 cc pre op Hgb 11.7 --> 10.7 today Thoracic spine MRI ordered by spine Ortho due to ongoing weakness: There is a broad-based posterior disc bulge at T11-T12 with likely severe canal stenosis, AP diameter of 3 mm, and moderate bilateral neuroforaminal stenosis. Spine Ortho planning for lumbar decompression fusion T10-T12 tomorrow (3) Chronic atrial fibrillation: Plan: Eliquis on hold postoperatively, given potential need for additional surgery, was transitioned to full dose Lovenox on 12/07 - on hold now due to plans for OR tomorrow Cont metoprolol tartrate, diltiazem (4) Acute kidney injury superimposed on CKD: (5) Chronic kidney disease (CKD), stage III (moderate): Plan: Creatinine peaked to 1.7 on 12/05 -in the setting of surgery, n.p.o. status Resolved to 1.1 today (6) Hypothyroidism: Plan: Chronic, stable Continue levothyroxine (7) Chronic heart failure with preserved ejection fraction: Plan: Appears euvolemic Torsemide and spironolactone resumed (8) Tachy-noni syndrome: Plan: S/p pacemaker (9) Chronic respiratory failure: Plan: Chronic bronchitis, bronchiectasis On chronic 2-3 L oxygen via nasal cannula Continue oxygen supplementation Continue home inhalers, nebulizers (10) HTN (hypertension): Plan: Continue diltiazem, metoprolol tartrate chronic, stable (11) Hyperlipidemia: Plan: Continue atorvastatin (12) Anxiety and depression: Plan: Continue Lexapro (13) Restless leg syndrome: Plan: Continue ropinirole (14) Sleep apnea: Plan: BiPAP at bedtime DVT PROPHYLAXIS TEDs/SCDs while not receiving anticoagulation Dispo -pending, undergoing additional procedure tomorrow, PT/OT, case management following Patient seen in collaboration with Dr. Askew. Admission and Anticipated Discharge Date Admission Date: December 02, 2022 Supervising Physician Co-Signing Physician Notes I have seen and discussed the case with the collaborating TAILER OFF. I agree with the above H&P. I have reviewed and confirmed the patients medical history, the findings on physical examination, and the patients diagnosis and treatment plan with [facility] TAILER OFF agree with the information documented. In short, Mr. May is a gentleman with complex medical history as above, with recent lumbar decompression and continued weakness--a thoracic mri was obtained which revealed notable stenosis at the level of T11-T12. Ortho on consult, decompression tomorrow 12/[address] Esteves. Rest of plan as above--hold torsemide in am to prevent postoperative NICOLÁS Subjective Follow-up for spinal stenosis s/p lumbar decompression and fusion. Patient seen and examined. Reports ongoing bilateral lower extremity weakness. Back pain relatively well controlled. Urinating and + BM without difficulty. No chest pain or shortness of breath. Denies abdominal pain and nausea. Physical Exam Constitutional: WD/WN, vitals as above no acute distress Respiratory: normal respiratory effort, lungs clear to auscultation Cardiovascular: Rate/Rhythm: regular rate and + irregularly irregular Vessels: normal peripheral pulses Extremities: no edema Gastrointestinal (Abdomen): Percussion/Palpation: abdomen soft; abdomen nontender Musculoskeletal: Pedal pushes and pulls strong bilaterally however has significant difficulty lifting both legs off of the bed Skin: no rashes, warm and dry Psychiatric: A+Ox3, euthymic affect Results & Data Results & Data Vital Signs (Past 12 Hours) Vital Signs Temp Pulse Pulse Resp BP BP Pulse Ox 12/08/22 13:00 36.8 C 88 14 105/65 94 12/08/22 15:42 37.0 C 83 18 106/72 96 12/08/22 11:22 36.7 C 68 15 124/59 L 98 12/08/22 07:37 36.5 C 88 14 136/82 98 O2 Del Method O2 Flow Rate 12/08/22 13:00 Nasal Cannula 3 12/08/22 15:42 Room Air 12/08/22 11:22 Nasal Cannula 3 12/08/22 07:37 Room Air Laboratory Results Short CBC 12/08/22 Range/Units 07:10 WBC 13.71 H (4.8-10.8) K/ul Hgb 10.7 L (14.0-18.0) g/dl Hct 32.9 L (42.0-52.0) % Plt Count 189 (130-400) K/uL BMP 12/08/22 07:10 Sodium 138 Potassium 4.1 Chloride 95 L Carbon Dioxide 39 H BUN 39 H Creatinine 1.18 Glucose 84 Calcium 9.5
[2022-12-08] MEDS: HYDROmorphone INJ 1 MG/ML SYRINGE IV PRN (17:41)
[2022-12-08] MEDS: DOCUSATE SODIUM/SENNA 50/8.6MG TAB PO SCH (21:38)
[2022-12-08] MEDS: rOPINIRole HCL 1 MG TABLET PO SCH (21:38)
[2022-12-08] MEDS: OLANZapine 5 MG TABLET PO SCH (21:39)
[2022-12-08] MEDS: MIRTAZAPINE TAB 15 MG TAB PO SCH (21:39)
[2022-12-08] MEDS: MAGNESIUM OXIDE 400 MG TAB PO SCH (21:39)
[2022-12-08] MEDS: ATORVASTATIN 20 MG TAB PO SCH (21:39)
[2022-12-09] MEDS: ACETAMINOPHEN 500 MG TAB PO SCH ×3 (05:17→21:57)
[2022-12-09] MEDS: SODIUM CHLOR 7% 4 ML NEB INH SCH ×2 (07:17→19:38)
[2022-12-09] MEDS: ALBUT/IPRATROP 3MG/0.5MG NEB 3 ML VIAL NEB SCH ×2 (07:17→19:37)
[2022-12-09 08:04] LABS: Hematocrit (blood only) 30.3 % (42.0-52.0); Hemoglobin 9.8 g/dl (14.0-18.0); Mean Corpuscular Hemoglobin 30.1 pg (25.0-34.0); Mean Corpuscular Hgb Conc 32.3 g/dL (32.0-36.0); Mean Corpuscular Volume 92.9 fL (80.0-100.0); Mean Platelet Volume 11.2 fL (9.4-12.4); Platelet Count 179 K/uL (130-400); RDW Coefficient of Variation 15.5 % (11.5-14.5); RDW Standard Deviation 52.6 fL (36.4-46.3); Red Blood Count 3.26 M/uL (4.70-6.10); White Blood Count 11.78 K/ul (4.8-10.8)
[2022-12-09] MEDS: HYDROmorphone INJ 0.5 MG/0.5 ML SYR IV PRN (08:24)
[2022-12-09 08:30] LABS: BUN Creatinine Ratio 30.5 (10-20); Calcium 9.2 mg/dl (8.6-10.3); Creatinine Clr Calc Pharmacy 49.2 ml/min; Est GFR (African American) 53.4 ml/min; Est GFR (Non-African American) 46.1 ml/min; Potassium 4.2 mmol/L (3.5-5.1)
[2022-12-09] MEDS: CALCIUM 600MG + VIT D 400 IU TAB PO SCH (10:35)
[2022-12-09] MEDS: ESCITALOPRAM OXALATE 20 MG TAB PO SCH (10:35)
[2022-12-09] MEDS: dilTIAZem HCL 180 MG CAPCR PO SCH (10:35)
[2022-12-09] MEDS: guaiFENesin 600 MG TABCR PO SCH ×2 (10:36→21:54)
[2022-12-09] MEDS: FLUTICASONE/VILANTEROL 200/25MCG 14 PUFFS/INHALER INH SCH (10:36)
[2022-12-09] MEDS: METOPROLOL TARTRATE 25 MG TAB PO SCH ×2 (10:37→21:54)
[2022-12-09] MEDS: TAMSULOSIN HCL 0.4 MG CAP PO SCH (10:37)
--- NOTE | 2022-12-09 12:33 | Hospitalist Progress Note ---
Date of Service December 09, 2022 Assessment & Plan (1) Thoracic spinal stenosis: (2) Lumbar spinal stenosis: (3) Weakness: Plan: Patient is 82-year-old male with PMH chronic atrial fibrillation chronically anticoagulated on Eliquis, tachybradycardia syndrome s/p pacemaker, HLD, chronic respiratory failure on chronic oxygen, chronic CHF preserved EF, hypothyroidism, CKD III, depression, anxiety, RLS, RUDY presented to ER with C/O progressive BLE weakness. CT head: No acute intracranial findings CT lumbar Spine: IMPRESSION:1. No acute fracture or subluxation.2. Levoscoliosis with multilevel degenerative changes of the above resulting in associated central canal and neural foraminal narrowing. Lumbar spine MRI with levoscoliosis with multilevel degenerative changes of the above resulting in associated central canal and neural foraminal narrowing. 12/03: s/p lumbar decompression bilaterally facetectomies and foraminotomies L2- L3, L3-L4 and L4-5 and posterior spinal fusion L3-L4 L4-[address] Esteves Activity and wound care orders as per ortho Pain control with bowel regimen PT/OT Monitor H/H for acute blood loss anemia and transfuse blood products PRN EBL 400 cc, drain output 855 cc pre op Hgb 11.7 --> 9.8 today Thoracic spine MRI ordered by spine Ortho due to ongoing weakness: There is a broad-based posterior disc bulge at T11-T12 with likely severe canal stenosis, AP diameter of 3 mm, and moderate bilateral neuroforaminal stenosis. Spine Ortho planning for lumbar decompression fusion T10-T12 today (4) Chronic atrial fibrillation: Plan: Eliquis on hold postoperatively from initial surgery, given potential need for additional surgery, was transitioned to full dose Lovenox on 12/07 - on hold now due to plans for OR today Cont metoprolol tartrate, diltiazem (5) Acute kidney injury superimposed on CKD: (6) Chronic kidney disease (CKD), stage III (moderate): Plan: Creatinine peaked to 1.7 on 12/05 -in the setting of surgery, n.p.o. status Baseline creatinine low 1s Resolved Creatinine 1.4 today. Lasix and spironolactone on hold in anticipation of surgery today. Continue to monitor renal functions (7) Hypothyroidism: Plan: Chronic, stable Continue levothyroxine (8) Chronic heart failure with preserved ejection fraction: Plan: Appears euvolemic Torsemide and spironolactone on hold due to OR today (9) Tachy-noni syndrome: Plan: S/p pacemaker (10) Chronic respiratory failure: Plan: Chronic bronchitis, bronchiectasis On chronic 2-3 L oxygen via nasal cannula Continue oxygen supplementation Continue home inhalers, nebulizers (11) HTN (hypertension): Plan: Continue diltiazem, metoprolol tartrate chronic, stable (12) Hyperlipidemia: Plan: Continue atorvastatin (13) Anxiety and depression: Plan: Continue Lexapro (14) Restless leg syndrome: Plan: Continue ropinirole (15) Sleep apnea: Plan: BiPAP at bedtime DVT PROPHYLAXIS TEDs/SCDs while not receiving anticoagulation Dispo -pending, for OR today, PT/OT, case management following Patient seen in collaboration with Dr. Ruvalcaba. Admission and Anticipated Discharge Date Admission Date: December 02, 2022 Supervising Physician Co-Signing Physician Notes I have seen and examined the patient and have discussed the case with the provider above. I agree with the assessment and plan as stated. 82-year-old man status post thoracic decompression and fusion today. Pain is controlled at the moment. He is recently postop but able to tolerate some food. Reports some constipation. My exam is consistent with that above. Slight tachycardia to 107 noted in post operative state. Cont to trend vitals per protocol. Cont scheduled nebulizer therapies per outpatient regimen. Meds/labs imaging reviewed. Cont supportive care efforts to promote recovery as noted above. Jordon, DO Subjective Follow-up for spinal stenosis s/p lumbar decompression and fusion. Patient seen and examined. Scheduled for T10-T12 decompression and fusion today by Dr. Esteves. Reports pain is well controlled. Has ongoing lower extremity weakness. Denies chest pain, shortness of breath, palpitations. No abdominal pain or nausea. Physical Exam Constitutional: WD/WN, vitals as above no acute distress Respiratory: normal respiratory effort; no respiratory distress Auscultation: + diminished lung sounds Cardiovascular: Rate/Rhythm: regular rhythm and + irregularly irregular Vessels: normal peripheral pulses Extremities: + edema (Trace edema BLE) Gastrointestinal (Abdomen): Percussion/Palpation: abdomen soft; abdomen nontender Skin: no rashes, warm and dry Neurologic: no focal motor deficits Psychiatric: A+Ox3, euthymic affect Results & Data Results & Data Vital Signs (Past 12 Hours) Vital Signs Temp Pulse Pulse Resp BP Pulse Ox O2 Del Method 12/09/22 08:28 Nasal Cannula 12/09/22 07:28 36.9 C 79 16 124/73 96 Nasal Cannula 12/09/22 07:18 88 17 94 Nasal Cannula O2 Flow Rate 12/09/22 08:28 3 12/09/22 07:28 3 12/09/22 07:18 3 Laboratory Results Short CBC 12/09/22 Range/Units 07:15 WBC 11.78 H (4.8-10.8) K/ul Hgb 9.8 L (14.0-18.0) g/dl Hct 30.3 L (42.0-52.0) % Plt Count 179 (130-400) K/uL BMP 12/09/22 07:15 Sodium 139 Potassium 4.2 Chloride 97 L Carbon Dioxide 39 H BUN 43 H Creatinine 1.41 H Glucose 98 Calcium 9.2
[2022-12-09] MEDS ORDERED: ROCURONIUM BROMIDE 10 MG/ML 5 ML VIAL IV ONE (12:58)
[2022-12-09] MEDS ORDERED: LIDOCAINE 2% 2 ML VIAL/AMP(20MG/ML) INFIL ONE (12:58)
[2022-12-09] MEDS ORDERED: ONDANSETRON INJ 2 MG/ML 2 ML VIAL ONE (12:58)
[2022-12-09] MEDS ORDERED: DEXAMETHASONE SOD INJ 4 MG/ML VIAL ONE (12:58)
[2022-12-09] MEDS ORDERED: fentaNYL citrate PF 100 MCG/2 ML VIAL ONE (12:58)
[2022-12-09] MEDS ORDERED: PROPOFOL IV EMULSION 10 MG/ML 20 ML VIAL IV ONE (12:58)
[2022-12-09] MEDS ORDERED: SUGAMMADEX SODIUM 200 MG/2 ML VIAL IV ONE (12:59)
--- NOTE | 2022-12-09 13:00 | History & Physical Bridge Note ---
Date of Service December 09, 2022 History & Physical Bridge Note I have examined the patient, reviewed the History & Physical and in the interval since the performance of the History & Physical I have noted the following changes of clinical significance: no changes noted T10-T12 decompression with possible fusion
[2022-12-09] MEDS ORDERED: BUPIVACAINE/EPINEPHRINE 0.25% 1:200,000 30 ML VIAL ONE (13:03)
[2022-12-09] MEDS ORDERED: ceFAZolin 330 MG/ML 1 GM VIAL ONE (13:03)
[2022-12-09] MEDS ORDERED: LACTATED RINGER'S 1,000 ML IV SCH (13:15)
[2022-12-09] MEDS ORDERED: ceFAZolin 3000MG/72.5 ML BAG IV ONE (13:16)
--- NOTE | 2022-12-09 13:48 | Anesthesiology Consultation ---
Date of Service December 09, 2022 Assessment & Plan Chart Review Chart Review: Acceptable Risk for Surgery and Patient NOT seen in Pre Admission Testing Consults Requested none History Surgery Operation Date: 12/03/22 11:55 Proposed Procedures p L3-L5 Decompression and Fusion - Randolph Esteves DO Operation Date: 12/09/22 13:45 Proposed Procedures p T10-T12 Decompression Possible Fusion - Randolph Esteves DO Height/Weight Height: 5 ft 11 in Weight: 102.4 kg Allergies Allergy/AdvReac Type Severity Reaction Status Date / Time oxycodone Allergy Unknown Flushing Verified 09/24/22 13:02 propoxyphene Allergy Unknown Flushing Verified 09/24/22 13:02 niacin AdvReac Unknown flushed Verified 09/24/22 13:02 feeling Medications Home Medications Medication Instructions Recorded Confirmed Last Taken albuterol sulfate 90 mcg/actuation 2 puff inhalation BID 08/03/22 11/30/22 08/19/22 04:00 aerosol inhaler apixaban 2.5 mg tablet (Eliquis) 2.5 mg PO BID 08/03/22 11/30/22 11/29/22 aspirin 81 mg capsule 81 mg PO QAM 08/03/22 11/30/22 08/19/22 04:00 atorvastatin 20 mg tablet (Lipitor) 20 mg PO HS 08/03/22 11/30/22 08/18/22 21:00 calcium carbonate 600 mg-vitamin 1 tab PO QAM 08/03/22 11/30/22 08/18/22 21:00 D3 10 mcg (400 unit) tablet (Calcium 600 + D(3)) cyclosporine 0.05 % eye drops in a 1 drp ophthalmic (eye) Q12H PRN 08/03/22 11/30/22 Unknown dropperette (Restasis) Dry Eye(S) diltiazem HCl 180 mg 180 mg PO QAM 08/03/22 11/30/22 11/29/22 capsule,extended release 24 hr escitalopram oxalate 20 mg tablet 20 mg PO QAM 08/03/22 11/30/22 11/29/22 (Lexapro) fluticasone 250 mcg-salmeterol 50 1 inh inhalation BID 08/03/22 11/30/22 08/19/22 04:00 mcg/dose blistr powdr for inhalation (Wixela Inhub) guaifenesin 600 mg tablet, 600 mg PO BID 08/03/22 11/30/22 08/19/22 04:00 extended release 12 hr (Mucinex) levothyroxine 75 mcg tablet 75 mcg PO QAM 08/03/22 11/30/22 11/30/22 lutein 20 mg tablet 20 mg PO HS 08/03/22 11/30/22 08/14/22 magnesium 200 mg tablet 400 mg PO HS 08/03/22 11/30/22 08/14/22 metoprolol tartrate 25 mg tablet 25 mg PO BID 08/03/22 11/30/22 11/29/22 mirtazapine 30 mg tablet (Remeron) 30 mg PO HS 08/03/22 11/30/22 11/29/22 multivitamin 1 tab PO QA 08/03/22 11/30/22 08/14/22 olanzapine 5 mg tablet (Zyprexa) 5 mg PO 08/03/22 11/30/22 11/29/22 potassium chloride 10 mEq 10 meq PO [facility] 08/03/22 11/30/22 11/29/22 capsule,extended release ropinirole 1 mg tablet 1 mg PO 08/03/22 11/30/22 11/29/22 spironolactone 25 mg tablet 12.5 mg PO 08/03/22 11/30/22 11/27/22 tamsulosin 0.4 mg capsule 0.4 mg PO [facility] 08/03/22 11/30/22 08/19/22 04:00 acetaminophen 500 mg tablet 1,000 mg PO TID pain 30 days #180 08/17/22 11/30/22 08/16/22 (Tylenol Extra Strength) tabs sodium chloride 3 % for 3 ml inhalation BID 11/30/22 11/30/22 Unknown nebulization torsemide 20 mg tablet 40 mg PO DAILY 11/30/22 11/30/22 11/29/22 Active Medications Generic Name Dose Route Start Last Admin Trade Name Freq PRN Reason Stop Dose Admin Acetaminophen 1,000 mg 11/30/22 22:00 12/09/22 05:17 Acetaminophen 500 Mg Tab PO 12/30/22 21:59 1,000 mg Q8 IRMA Administration Hydrocodone Bitart/Acetaminophen 1 - 2 tab 12/03/22 17:13 12/08/22 23:55 Hydrocodone/Acetamophen 5/325mg Tab PO 12/17/22 17:12 2 tab Q4H PRN Administration Pain & Pre PT Albuterol 3 ml 12/01/22 09:45 12/09/22 07:17 Albut/Ipratrop 3mg/0.5mg Neb 3 Ml Vial NEB 12/31/22 09:44 3 ml BIDR IRMA Administration Protocol Aspirin 81 mg 12/01/22 09:00 12/08/22 07:33 Aspirin 81 Mg Ectab PO 12/31/22 08:59 81 mg QAM IRMA Administration Atorvastatin Calcium 20 mg 11/30/22 21:00 12/08/22 21:39 Atorvastatin 20 Mg Tab PO 12/30/22 20:59 20 mg HS IRMA Administration Calcium/Vitamin D 1 tab 12/01/22 09:00 12/09/22 10:35 Calcium 600mg + Vit D 400 Iu Tab PO 12/31/22 08:59 1 tab QAM IRMA Administration Diltiazem HCl 180 mg 12/01/22 09:00 12/09/22 10:35 Diltiazem Hcl 180 Mg Capcr PO 12/31/22 08:59 180 mg QAM IRMA Administration Escitalopram Oxalate 20 mg 12/01/22 09:00 12/09/22 10:35 Escitalopram Oxalate 20 Mg Tab PO 12/31/22 08:59 20 mg QAM IRMA Administration Fluticasone/Vilanterol 1 puffs 12/01/22 09:00 12/09/22 10:36 Fluticasone/Vilanterol 200/25mcg 14 Puffs/Inhaler INH 12/31/22 08:59 1 puffs DAILY IRMA Administration Guaifenesin 600 mg 11/30/22 21:00 12/09/22 10:36 Guaifenesin 600 Mg Tabcr PO 12/30/22 20:59 600 mg BID IRMA Administration Hydromorphone HCl 0.5 mg 12/03/22 17:13 12/09/22 08:24 Hydromorphone Inj 0.5 Mg/0.5 Ml Syr IV 12/17/22 17:12 0.5 mg Q3H PRN Administration MODERATE Pain (Scale 4,5,6) & Pre PT Hydromorphone HCl 1 mg 12/03/22 17:13 12/08/22 17:41 Hydromorphone Inj 1 Mg/Ml Syringe IV 12/17/22 17:12 0.5 mg Q3H PRN Administration SEVERE Pain (Scale 7,8,9,10) Lactated Ringer's 1,000 mls @ 15 mls/hr 12/09/22 13:15 12/09/22 13:24 Lr IV 01/08/23 13:14 15 mls/hr .Q24H IRMA Administration Lorazepam 0.5 mg 12/03/22 17:13 12/06/22 03:10 Lorazepam 0.5 Mg Tab PO 01/02/23 17:12 0.5 mg Q8H PRN Administration Sedation/Anxiety Magnesium Oxide 400 mg 11/30/22 21:00 12/08/22 21:39 Magnesium Oxide 400 Mg Tab PO 12/30/22 20:59 400 mg HS IRMA Administration Metoprolol Tartrate 25 mg 11/30/22 21:00 12/09/22 10:37 Metoprolol Tartrate 25 Mg Tab PO 12/30/22 20:59 25 mg BID IRMA Administration Mirtazapine 30 mg 11/30/22 21:00 12/08/22 21:39 Mirtazapine Tab 15 Mg Tab PO 12/30/22 20:59 30 mg HS IRMA Administration Olanzapine 5 mg 11/30/22 21:00 12/08/22 21:39 Olanzapine 5 Mg Tablet PO 12/30/22 20:59 5 mg HS IRMA Administration Potassium Chloride 10 meq 12/01/22 09:00 12/08/22 07:36 Potassium Chloride 10 Meq Tabcr PO 12/31/22 08:59 10 meq QAM IRMA Administration Ropinirole HCl 1 mg 11/30/22 21:00 12/08/22 21:38 Ropinirole Hcl 1 Mg Tablet PO 12/30/22 20:59 1 mg HS IRMA Administration Senna/Docusate Sodium 2 tab 12/03/22 21:00 12/08/22 21:38 Docusate Sodium/Senna 50/8.6mg Tab PO 01/02/23 20:59 2 tab HS IRMA Administration Sodium Chloride 4 ml 11/30/22 19:00 12/09/22 07:17 Sodium Chlor 7% 4 Ml Neb INH 12/30/22 18:59 4 ml BIDR IRMA Administration Spironolactone 12.5 mg 12/02/22 09:00 12/07/22 09:42 Spironolactone 12.5 Mg Tab PO 01/01/23 08:59 12.5 mg MoWeFr IRMA Administration Tamsulosin HCl 0.4 mg 12/01/22 09:00 12/09/22 10:37 Tamsulosin Hcl 0.4 Mg Cap PO 12/31/22 08:59 0.4 mg QAM IRMA Administration Torsemide 40 mg 12/07/22 09:00 12/08/22 07:33 Torsemide 10 Mg Tab PO 01/06/23 08:59 40 mg QAM IRMA Administration Tramadol HCl 50 - 100 mg 12/03/22 17:13 12/06/22 03:14 Tramadol Hcl 50 Mg Tablet PO 01/02/23 17:12 50 mg Q4H PRN Administration Moderate-Severe pain & Pre PT NPO Date Last Intake of Fluids: 12/08/22 Time Last Intake of Fluids: 21:00 Last Intake of Fluids Comment: sip with meds Date Last Intake of Solids: 12/08/22 Time Last Intake of Solids: 20:30 Past Medical History Medical History A-fib follows w/ [facility] cardio, [place] [facility] on Eliquis Anxiety and depression Aortic stenosis Mild per 2021 ECHO Asthmatic bronchitis Breathing stable - chronic (hx of smoker) Chronic kidney disease (CKD), stage III (moderate) Chronic respiratory failure Diastolic heart failure Compensated per cardio records Encounter for pre-operative examination HTN (hypertension) Hx of pyoderma gangrenosum BLE Hyperlipidemia Hypothyroidism On anticoagulant therapy eliquis Pacemaker medtronic, last checked 05/13/22, remotely Prostate cancer Around 2013- s/p brachytherapy - Lupron q 3 months Pulmonary disease restrictive lung disease, hypoxic respiratory failure, hypercapnic respiratory failure , bronchiectasis, 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, 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 per records Restless leg syndrome Sleep apnea bipap; 3 lpm hs Tachy-noni syndrome s/p pacemaker placement 2018 Past Family History Family History Other No family history of adverse response to anesthesia Past Surgical History Surgical History History of surgery Rectal fissure repair Hx of colonoscopy Hx of tonsillectomy Hx of total hip arthroplasty RIGHT S/P placement of cardiac pacemaker Status post left hip replacement Social History Smoking Status: Never smoker tobacco type: cigarettes Do You Dip or Chew Tobacco: No Smoking End Date: Quit in 1978 Hx Alcohol Use: No Hx Substance Use: No substance use type: does not use Review of Systems Constitutional: + weakness Cardiovascular: + dyspnea at rest; no chest pain Physical Exam Vital Signs Last Vital Signs Temp 36.8 C 12/09/22 13:15 Pulse 84 12/09/22 13:15 Resp 20 12/09/22 13:15 BP 113/71 12/09/22 13:15 Pulse Ox 94 12/09/22 13:15 O2 Del Method Nasal Cannula 12/09/22 13:15 O2 Flow Rate 3 12/09/22 13:15 FiO2 21 12/01/22 07:39 Constitutional WD/WN, vitals as above no acute distress ENMT Mouth: no TMJ abnormality Thyromental Distance: > or= 3.5 Finger Breadths Mallampati Class: III Neck normal visual inspection and trachea midline; neck extension not limited Respiratory normal respiratory effort, lungs clear to auscultation normal respiratory effort; no respiratory distress Auscultation: lungs clear to auscultation bilaterally and + diminished lung sounds Cardiovascular RRR, no murmur, no edema Rate/Rhythm: regular rate, regular rhythm and + irregularly irregular Heart Sounds: no murmur Vessels: normal peripheral pulses Extremities: + edema (Trace edema BLE) Chest (Breasts) Chest: + pacemaker Gastrointestinal (Abdomen) normal bowel sounds, soft, nontender, no hepatosplenomegaly Percussion/Palpation: abdomen soft; abdomen nontender Musculoskeletal Spine: normal cervical ROM Extremities: full ROM of extremities Skin no rashes, warm and dry Neurologic moves all extremities; no focal motor deficits Psychiatric A+Ox3, euthymic affect Orientation: alert and oriented x 3 Testing Laboratory Results 12/09/22 07:15 12/09/22 07:15 Urine Color Yellow 11/30/22 14:24 Urine Appearance Clear (Clear) 11/30/22 14:24 Urine pH 5.5 (4.5-7.5) 11/30/22 14:24 Ur Specific Mclean 1.017 (1.000-1.030) 11/30/22 14:24 Urine Protein Negative (Negative) 11/30/22 14:24 Urine Glucose (UA) Negative (Negative) 11/30/22 14:24 Urine Ketones Negative (Negative) 11/30/22 14:24 Urine Nitrite Negative (Negative) 11/30/22 14:24 Ur Leukocyte Esterase Negative (Negative) 11/30/22 14:24 Blood Type A Positive 12/09/22 07:15 Antibody Screen NEGATIVE 12/09/22 07:15 11/30/22 14:14 Aerobic Blood Culture - Final Blood No growth in Aerobic bottle after 5 days. Anaerobic Blood Culture - Final No growth in Anaerobic bottle after 5 days. 11/30/22 13:14 Aerobic Blood Culture - Final Blood No growth in Aerobic bottle after 5 days. Anaerobic Blood Culture - Final No growth in Anaerobic bottle after 5 days. Electrocardiogram Date: 11/30/22 Atrial fibrillation with occasional ventricular-paced complexes Right bundle branch block Abnormal ECG When compared with ECG of 05-AUG-2022 11:09, Vent. rate has increased BY 29 BPM Confirmed by Grover Gomez ([id number]) on 12/02/2022 9:18:08 PM Stress Test Date: 08/13/22 Type: nuclear negative
--- NOTE | 2022-12-09 15:53 | Operative Report ---
Post Operative Report Pre & Post Diagnosis Operation Date: 12/09/22 13:45 Pre-Op Diagnosis: Thoracic spinal stenosis with myelopathy Post-Op Diagnosis: Same I identified the patient and participated in the time-out.: Yes Procedure Operation Date: 12/09/22 13:45 Actual Procedures #1 thoracic decompression bilateral facetectomies T10-T11 T11-T12. #2 posterior spinal fusion T10 to T12. #3 placed posterior instrumentation T10-T12. #4 placement of locally harvested morselized autograft posterior gutters. #5 placement infuse collagen sponge in the posterior gutters T10-T12. Surgeon Randolph Esteves, DO [facility] Ashley Colvin Estimated Blood Loss 100 Findings Consistent with Post-Op Diagnosis Specimens None Indications This is a 82-year-old male well-known to me the presents with lower extremity weakness is been progressive in nature. Further imaging demonstrated in addition to his lumbar stenosis considerable thoracic stenosis with cord compression and subsequently is here to address thoracic stenosis. Description of Procedure Patient met with identified informed consent obtained. Patient was then taken to the operative suite underwent a patient placed in a prone position the [place] table top Jeffrey frame. All bony promises well-padded eyes inspected to ensure no external pressure placed monitor at this point the thoracolumbar spine was prepped and draped in a sterile fashion. Sharp dissection with the assistance of Bovie cautery as well down to and exposing the lamina and transverse processes of [id number]. Self-retaining retractors placed. Then performed a complete laminectomy of T11 and T10 to include bilateral medial facetectomies and addressed all cord compression. I did explore the disc herniation at T10-T11 on the left noting it to be calcified. Pedicle screws were then placed in T10 10 T11-T12 bilaterally with assistance of fluoroscopy and process priscilla locked into position. The transverse processes of [id number] were then burred to subcortically and bone. Infuse collagen sponge, with locally harvested morselized autograft was placed in posterior gutters. 15 round CINTIA drain inserted. The incision was then closed with 1 Vicryl to fascia 2-0 Vicryl subcutaneously and 4 Monocryl for final skin closure. Steri-Strips sterile dressing placed. Patient waken taken to PACU stable condition. Please note spinal cord monitoring was utilized at the procedure no changes noted. Lastly Ashley Colvin was present at the entire surgery and while the patient positioning complex portions of the surgery and final skin closure. I attest to the content of the Intraoperative Record and any orders documented therein. Any exceptions are noted below.
[2022-12-09] MEDS ORDERED: FLOSEAL HEMOSTATIC MATRIX 10ML TOP ONE (16:01)
[2022-12-09] MEDS: HYDROmorphone INJ 1 MG/ML SYRINGE IV PRN (16:25)
[2022-12-09] MEDS ORDERED: ATROPINE SULFATE 0.1 MG/ML 10ML SYR IV PRN (16:25)
[2022-12-09] MEDS ORDERED: ePHEDrine sulfate 50 MG/ML AMP IV PRN (16:25)
[2022-12-09] MEDS ORDERED: ONDANSETRON INJ 2 MG/ML 2 ML VIAL IV PRN (16:25)
[2022-12-09] MEDS ORDERED: HYDROmorphone INJ 1 MG/ML SYRINGE IV PRN (16:25)
--- NOTE | 2022-12-09 17:20 | Anesthesiology Progress Note ---
Date of Service December 09, 2022 Anesthesia Post Procedure Vital Signs Vital Signs: Temp Pulse Pulse Pulse Pulse Resp BP 12/09/22 16:40 104 H 23 12/09/22 16:30 98 H 27 H 12/09/22 17:10 94 H 21 12/09/22 17:00 99 H 21 12/09/22 16:50 98 H 22 12/09/22 16:20 108 H 32 H 12/09/22 16:12 36.3 C L 67 16 12/09/22 13:15 36.8 C 84 20 113/71 12/09/22 08:28 12/09/22 07:28 36.9 C 79 16 124/73 12/09/22 07:18 88 17 12/08/22 21:00 12/08/22 21:28 36.6 C 86 18 109/67 12/08/22 19:29 83 17 BP Pulse Ox O2 Del Method O2 Flow Rate 12/09/22 16:40 153/94 H 95 Non-rebreather 15 12/09/22 16:30 152/87 H 96 Non-rebreather 15 12/09/22 17:10 130/64 91 Oxymask 5 12/09/22 17:00 124/64 93 Oxymask 6 12/09/22 16:50 126/73 94 Non-rebreather 10 12/09/22 16:20 185/97 H 93 Non-rebreather 15 12/09/22 16:12 134/83 100 Oxymask 10 12/09/22 13:15 94 Nasal Cannula 3 12/09/22 08:28 Nasal Cannula 3 12/09/22 07:28 96 Nasal Cannula 3 12/09/22 07:18 94 Nasal Cannula 3 12/08/22 21:00 Nasal Cannula 2 12/08/22 21:28 100 Nasal Cannula 2,109 12/08/22 19:29 98 Nasal Cannula 3 Pain Intensity Left Hip: Pain Intensity: 1 Back: Pain Intensity: 1 Bilateral Leg: Pain Intensity: 5 Transfer of Care Handoff Completed per policy Notes Mental Status: alert / awake / arousable Patient Amnestic to Procedure: Yes Nausea / Vomiting: adequately controlled Pain: adequately controlled Airway Patency, RR, SpO2: stable & adequate BP & HR: stable & adequate Hydration State: stable & adequate Anesthetic Complications: no major complications apparent and Pt Satisfied with anesthetic care
--- NOTE | 2022-12-09 18:23 | Fluoroscopy Report ---
[place] thoracic spine 2V CLINICAL HISTORY: T10-T12 DECOMPRESSION AND FUSION COMPARISON STUDY: Thoracic spine MRI 12/07/2022. FLUOROSCOPY TIME: 30 seconds FLUOROSCOPY IMAGES: 2 Ka,r: 23.1 mGy FINDINGS: Posterior decompression and fusion within the lower thoracic spine. The exact levels are di fficult to determine on this spot image but favor the T10-T12 levels. The hardware appears intact. IMPRESSION: Fluoroscopic assistance as above. ACT 112: Negative or not required by law. Electronically signed by: Piyush Dotson M.D. 12/09/2022 6:22 PM
[2022-12-09] MEDS: LACTATED RINGER'S 1,000 ML IV SCH (18:30)
[2022-12-09] MEDS: ASPIRIN 81 MG ECTAB PO SCH (18:42)
[2022-12-09] MEDS: POTASSIUM CHLORIDE 10 MEQ TABCR PO SCH (18:43)
[2022-12-09] MEDS: traMADol HCL 50 MG TABLET PO PRN ×2 (19:33→23:14)
[2022-12-09] MEDS ORDERED: POLYETHYLENE (MIRALAX) 17 GM PACK PO STA (20:47)
[2022-12-09] MEDS ORDERED: ACETAMINOPHEN 500 MG TAB PO STA (20:48)
[2022-12-09 21:26] LABS: Magnesium 2.3 mg/dl (1.7-2.4)
[2022-12-09] MEDS ORDERED: ALBUMIN 25% 25 GM/100 ML VIAL IV ONE (21:45)
[2022-12-09] MEDS: OLANZapine 5 MG TABLET PO SCH (21:52)
[2022-12-09] MEDS: MIRTAZAPINE TAB 15 MG TAB PO SCH (21:52)
[2022-12-09] MEDS: DOCUSATE SODIUM/SENNA 50/8.6MG TAB PO SCH (21:52)
[2022-12-09] MEDS: MAGNESIUM OXIDE 400 MG TAB PO SCH (21:53)
[2022-12-09] MEDS: ATORVASTATIN 20 MG TAB PO SCH (21:53)
[2022-12-09] MEDS: rOPINIRole HCL 1 MG TABLET PO SCH (21:54)
--- NOTE | 2022-12-09 23:47 | CT Scan Report ---
Exam(s): CT ABDOMEN + PELVIS Without Contrast EXAM: CT Abdomen and Pelvis Without Intravenous Contrast CLINICAL HISTORY: Reason for exam: abd pain. TECHNIQUE: Axial computed tomography images of the abdomen and pelvis without intravenous contrast. CTDI is 28 mGy and DLP is 1541.9 mGy-cm. Automated exposure control was utilized for the study. A dose lowering technique was utilized adhering to the principles of ALARA. COMPARISON: No relevant prior studies available. FINDINGS: Lung bases: Consolidative atelectasis at the lung bases with bronchiectasis. ABDOMEN: Liver: Unremarkable. Gallbladder and bile ducts: Unremarkable. 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 Spleen: Unremarkable. Adrenals: Unremarkable. Kidneys and ureters: Cortical cysts in the kidneys bilaterally. No hydronephrosis. Stomach and bowel: Unremarkable. PELVIS: Appendix: No findings to suggest acute appendicitis. Bladder: Unremarkable. Reproductive: Brachytherapy beads within the prostate. ABDOMEN and PELVIS: Intraperitoneal space: Unremarkable. No free air. No significant fluid collection. Bones/joints: Indeterminate sclerotic lesion within the right iliac wing measuring up to 3 cm (image [id number]). Postsurgical changes within the thoracolumbar spine. Soft tissue gas within the paraspinous musculature is likely postprocedural. No fluid collection. Bilateral hip arthroplasties. Soft tissues: See above. Vasculature: Aortobiiliac atherosclerotic calcifications. Lymph nodes: Unremarkable. IMPRESSION: 1. Consolidative atelectasis at the lung bases with bronchiectasis. Findings are suggestive of chronic aspiration pneumonia. 2. 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 3. Indeterminate sclerotic lesion within the right iliac wing measuring up to 3 cm (image [id number]). A metastatic lesion could have this appearance. Electronically signed by: Dale Huang MD 12/09/22 23:47 PM
[2022-12-10] MEDS ORDERED: LACTULOSE SYRUP 30 GM/45 ML UDP PO STA (00:12)
[2022-12-10 01:15] LABS: Albumin Globulin Ratio 1.3 (0.9-2); Albumin Level 3.6 gm/dl (3.4-5.0); BUN Creatinine Ratio 32.1 (10-20); Bilirubin,Total 0.7 mg/dl (0.2-1.0); Calcium 9.5 mg/dl (8.6-10.3); Creatinine Clr Calc Pharmacy 64.4 ml/min; Est GFR (African American) 72.9 ml/min; Est GFR (Non-African American) 62.9 ml/min; Globulin 2.8 gm/dl (2.5-4.0); Potassium 4.8 mmol/L (3.5-5.1); Total Protein 6.4 gm/dl (6.0-8.3)
[2022-12-10] MEDS: HYDROCODONE/ACETAMOPHEN 5/325MG TAB PO PRN (02:52)
[2022-12-10] MEDS: traMADol HCL 50 MG TABLET PO PRN ×3 (05:16→21:30)
[2022-12-10] MEDS: ACETAMINOPHEN 500 MG TAB PO SCH ×3 (06:07→22:00)
[2022-12-10 07:06] LABS: Hematocrit (blood only) 26.5 % (42.0-52.0); Hemoglobin 8.5 g/dl (14.0-18.0); Mean Corpuscular Hemoglobin 30.2 pg (25.0-34.0); Mean Corpuscular Hgb Conc 32.1 g/dL (32.0-36.0); Mean Corpuscular Volume 94.3 fL (80.0-100.0); Mean Platelet Volume 10.9 fL (9.4-12.4); Platelet Count 190 K/uL (130-400); RDW Coefficient of Variation 15.4 % (11.5-14.5); RDW Standard Deviation 52.7 fL (36.4-46.3); Red Blood Count 2.81 M/uL (4.70-6.10); White Blood Count 13.18 K/ul (4.8-10.8)
[2022-12-10] MEDS: SODIUM CHLOR 7% 4 ML NEB INH SCH ×2 (07:06→20:32)
[2022-12-10] MEDS: ALBUT/IPRATROP 3MG/0.5MG NEB 3 ML VIAL NEB SCH ×2 (07:06→20:32)
[2022-12-10 07:26] LABS: BUN Creatinine Ratio 32.7 (10-20); Calcium 9.2 mg/dl (8.6-10.3); Est GFR (African American) 77.1 ml/min; Est GFR (Non-African American) 66.6 ml/min; Potassium 4.5 mmol/L (3.5-5.1)
--- NOTE | 2022-12-10 07:30 | XRay Report ---
SINGLE VIEW CHEST CLINICAL HISTORY: Renal failure. FINDINGS: An AP, portable, upright chest radiograph is compared to study dated 11/30/2022. The examin ation is degraded by portable technique and apical lordotic positioning. A single lead cardiac pacem vivian is unchanged in position. The heart is enlarged noting atherosclerotic calcification of the thor acic aorta. The pulmonary vasculature is noncongested. Chronic interstitial thickening similar to pre vious. There are low lung volumes with bibasilar scarring/atelectasis. No airspace consolidation or l arge pleural effusion is identified. No pneumothorax is seen. The skeletal structures are osteopenic. The bony thorax is grossly intact. Fusion hardware is noted in the lumbar spine. A catheter projects over the upper abdomen. IMPRESSION: 1. Cardiomegaly and cardiac pacemaker without radiographic evidence of congestive failure. 2. Low lung volumes with bibasilar atelectasis. ACT 112: Negative or not required by law. Electronically signed by: Paramjit Hitchcock M.D. 12/10/2022 7:28 AM
--- NOTE | 2022-12-10 08:38 | Orthopedic Progress Note ---
Date of Service December 10, 2022 Assessment & Plan (1) Thoracic spinal stenosis: Plan: At this time we can initiate physical therapy. Hopefully he will progress appropriately throughout the weekend and we can consider rehab next week. Admission and Anticipated Discharge Date Admission Date: December 02, 2022 Subjective Back pain is controlled. He states his leg symptoms are improved. Physical Exam Physical Exam: Patient is currently in bed. Is constricted testing lower extremities. Results & Data Vital Signs (Past 12 Hours) Vital Signs Temp Pulse Resp BP Pulse Ox O2 Del Method O2 Flow Rate 12/10/22 07:19 36.6 C 82 19 119/73 99 Nasal Cannula, Nebulizer 7 12/10/22 07:06 82 18 96 Nasal Cannula 5 12/10/22 04:14 36.4 C L 70 18 138/58 L 99 Nasal Cannula 4.0 12/09/22 23:39 36.9 C 90 16 129/73 95 Nasal Cannula 4 12/09/22 22:13 36.6 C 98 H 20 120/74 94 Nasal Cannula 4.0 Queries Orthopedic Spine Acute Posthemorrhagic Anemia: Yes
[2022-12-10] MEDS: dilTIAZem HCL 180 MG CAPCR PO SCH (09:04)
[2022-12-10] MEDS: ASPIRIN 81 MG ECTAB PO SCH (09:04)
[2022-12-10] MEDS: CALCIUM 600MG + VIT D 400 IU TAB PO SCH (09:04)
[2022-12-10] MEDS: ESCITALOPRAM OXALATE 20 MG TAB PO SCH (09:05)
[2022-12-10] MEDS: FLUTICASONE/VILANTEROL 200/25MCG 14 PUFFS/INHALER INH SCH (09:05)
[2022-12-10] MEDS: METOPROLOL TARTRATE 25 MG TAB PO SCH ×2 (09:06→21:24)
[2022-12-10] MEDS: guaiFENesin 600 MG TABCR PO SCH ×2 (09:06→21:23)
[2022-12-10] MEDS: TAMSULOSIN HCL 0.4 MG CAP PO SCH (09:07)
[2022-12-10] MEDS: POTASSIUM CHLORIDE 10 MEQ TABCR PO SCH (09:11)
[2022-12-10] MEDS: LACTATED RINGER'S 1,000 ML IV SCH (15:13)
--- NOTE | 2022-12-10 17:28 | Hospitalist Progress Note ---
Date of Service December 10, 2022 Assessment & Plan (1) Thoracic spinal stenosis: (2) Lumbar spinal stenosis: (3) Weakness: Plan: Patient is 82-year-old male with PMH chronic atrial fibrillation chronically anticoagulated on Eliquis, tachybradycardia syndrome s/p pacemaker, HLD, chronic respiratory failure on chronic oxygen, chronic CHF preserved EF, hypothyroidism, CKD III, depression, anxiety, RLS, RUDY presented to ER with C/O progressive BLE weakness. CT head: No acute intracranial findings CT lumbar Spine: IMPRESSION:1. No acute fracture or subluxation.2. Levoscoliosis with multilevel degenerative changes of the above resulting in associated centra l canal and neural foraminal narrowing. Lumbar spine MRI with levoscoliosis with multilevel degenerative changes of the above resulting in associated central canal and neural foraminal narrowing. S/p lumbar decompression bilaterally facetectomies and foraminotomies L2-L3, L3- L4 and L4-5 and posterior spinal fusion L3-L4 L4-[address] Esteves on 12/03 Thoracic spine MRI ordered by spine Ortho due to ongoing weakness There is a broad-based posterior disc bulge at T11-T12 with likely severe canal stenosis, AP diameter of 3 mm, and moderate bilateral neuroforaminal stenosis. POD#1 s/p decompression fusion T10-T12 by Dr. Esteves Activity and wound care orders as per ortho Pain control with bowel regimen PT/OT, plan for discharge to rehab Monitor H/H for acute blood loss anemia and transfuse blood products PRN Hgb 8.5 (pre-op hgb yesterday 9.8) (4) Chronic atrial fibrillation: Plan: Eliquis on hold postop from initial surgery and given potential need for add'l surgery, was transitioned to full dose Lovenox on 12/07 Eliquis remians on hold now - per ortho to resume as appropriate Cont metoprolol tartrate, diltiazem (5) Acute kidney injury superimposed on CKD: (6) Chronic kidney disease (CKD), stage III (moderate): Plan: Creatinine peaked to 1.7 on 12/05 -in the setting of surgery, n.p.o. status Baseline creatinine low 1s --> resolved Continue to monitor renal functions (7) Hypothyroidism: Plan: Chronic, stable Continue levothyroxine (8) Chronic heart failure with preserved ejection fraction: Plan: Appears euvolemic. Will resume spironolactone tomorrow, reassess for torsemide based on AM labs (9) Tachy-noni syndrome: Plan: S/p pacemaker (10) Chronic respiratory failure: Plan: Chronic bronchitis, bronchiectasis On chronic 2-3 L oxygen via nasal cannula Continue oxygen supplementation Continue home inhalers, nebulizers (11) HTN (hypertension): Plan: Continue diltiazem, metoprolol tartrate chronic, stable (12) Hyperlipidemia: Plan: Continue atorvastatin (13) Anxiety and depression: Plan: Continue Lexapro (14) Restless leg syndrome: Plan: Continue ropinirole (15) Abnormal CT of the abdomen: Plan: CT a/p obtained last evening in setting of abd bloating 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 change from previous, per d/w radiology today) Also showing indeterminate sclerotic lesion within the right iliac wing measuring up to 3 cm. A metastatic lesion could have this appearance. Significant in setting of prostate cancer, currently receiving Lupron inj Q3M (due in Jan 2023), has f/u with Dr. Preciado 01/07 Dr. Preciado aware of results, will push imaging for further determination of treatment, need for bone scan Discussed with patient, family at bedside (16) Sleep apnea: Plan: BiPAP at bedtime DVT PROPHYLAXIS TEDs/SCDs while not receiving anticoagulation Dispo -pending, PT/OT, case management following Patient seen in collaboration with Dr. Ruvalcaba. Admission and Anticipated Discharge Date Admission Date: December 02, 2022 Supervising Physician Co-Signing Physician Notes I have seen and examined the patient and have discussed the case with the provider above. I agree with the assessment and plan as stated. Jordon, DO Subjective Seen and examined in follow up in 383-2. Reporting some constipation with abdominal bloating today but no perico abdominal pain. Some surgical site discomfort but improved from overnight. No F/C, lightheadedness, CP, SOB, N/V, dysuria. Review of Systems Review of Systems: At least ten systems reviewed and negative except as noted in the HPI. Physical Exam Physical Exam: Gen: WD/WN, elderly, male,resting comfortably in bed, NAD, A&O x3 HEENT: Normocephalic, atraumatic, conjunctivae moist, sclerae anicteric, mucous membranes moist Lung: Diminished at bases bilaterally, on oxygen 3-4 L Heart: irregular rate and rhythm Abdomen: Soft, NT, mild distention, +BS x 4 Extremities: +Spinal dressing c/d/i. No edema Skin: Warm, no rash Results & Data Results & Data Vital Signs (Past 12 Hours) Vital Signs Temp Pulse Resp BP Pulse Ox O2 Del Method O2 Flow Rate 12/10/22 14:41 37.1 C 76 18 105/64 95 Nasal Cannula 4 12/10/22 10:51 37.1 C 88 18 116/72 95 Nasal Cannula 4 12/10/22 09:14 Nasal Cannula 4 12/10/22 07:19 36.6 C 82 19 119/73 99 Nasal Cannula, Nebulizer 7 12/10/22 07:06 82 18 96 Nasal Cannula 5 Laboratory Results Short CBC 12/10/22 Range/Units 06:26 WBC 13.18 H (4.8-10.8) K/ul Hgb 8.5 L (14.0-18.0) g/dl Hct 26.5 L (42.0-52.0) % Plt Count 190 (130-400) K/uL BMP 12/10/22 12/10/22 00:32 06:26 Sodium 139 141 Potassium 4.8 4.5 Chloride 98 100 Carbon Dioxide 35 H 37 H BUN 35 H 34 H Creatinine 1.09 D 1.04 Glucose 138 H 121 H Calcium 9.5 9.2 Liver Function 12/10/22 Range/Units 00:32 Total Bilirubin 0.7 (0.2-1.0) mg/dl AST 43 H (13-39) U/L ALT 31 (7-52) U/L Alkaline Phosphatase 49 (34-104) U/L Albumin 3.6 (3.4-5.0) gm/dl Diagnostic Findings Chest X-Ray 11/30/22 13:04 XR chest 1V portable CLINICAL HISTORY: Sepsis TECHNIQUE: Single frontal radiograph of the chest was obtained. Comparison: Comparison is made to chest radiograph 08/05/2022 FINDINGS: Lines and tubes are stable. Calcified aortic knob is seen. Lungs are underinflated but clear. No evidence of pleural effusion or pneumothorax. IMPRESSION: No acute abnormalities and in particular no radiographic evidence of pneumonia. ACT 112: Negative or not required by law. Electronically signed by: Beka Merlos M.D. 11/30/2022 1:[address] 11/30/22 13:04 CT head/brain wo con CLINICAL HISTORY: 82 years-old Male with fall. Acute head trauma status post fall TECHNIQUE: Multiple axial CT images of the head were obtained without contrast. A dose lowering technique was utilized adhering to the principles of ALARA. CT DOSE: 625.8 mGy.cm COMPARISON: None. FINDINGS: No acute intracranial hemorrhage, midline shift, intracranial mass, hydrocephalus, territorial ischemia or abnormal extra-axial collection. Involutional changes with chronic microvascular ischemic disease. The calvarium is intact. Prior bilateral lens repair. The paranasal sinuses, mastoid air cells, and middle ear cavities are clear. IMPRESSION: No acute intracranial abnormality or calvarial fracture. ACT 112: Negative or not required by law. The above report was generated using voice recognition software. It may contain grammatical, syntax or spelling errors. Electronically signed by: Gavin Recio M.D. 11/30/2022 1:[address] 11/30/22 16:20 CT lumbar spine wo con HISTORY: 82 years-old Male BLE weakness acute pain of the lower legs COMPARISON: None TECHNIQUE: Multiple axial CT images of the MR spine were obtained without the use of IV contrast. A dose lowering technique was used consistent with the principals of ALARA. FINDINGS: Suboptimal evaluation of the central canal and neural foramina by CT technique. Severe multilevel facet arthrosis. Spondylotic spurring with posterior annular disc bulging and disc osteophyte complex formations are noted at several levels L1-L2: Mild central canal stenosis. Neural foramen are patent. L2-L3: Posterior annular disc bulge with ligamentum flavum thickening and facet arthrosis results in moderate central canal stenosis with mild left and [id number] right foraminal narrowing. L3-L4: Spondylotic spurring with posterior annular disc bulge, ligamentum flavum thickening and advanced facet arthrosis. Severe central canal stenosis with moderate right and mild to moderate left foraminal narrowing. L4-L5: Grade 1 anterolisthesis, likely degenerative. Spondylotic spurring with posterior disc osteophyte complex, ligamentum flavum thickening and advanced facet arthrosis. Severe central canal stenosis with moderate to severe right and moderate left foraminal narrowing. L5-S1: Posterior disc osteophyte complex with ligamentum flavum thickening and moderate to severe facet arthrosis. The central canal is patent. Moderate bilateral foraminal narrowing. Mild levoscoliosis. No acute fracture, subluxation or endplate erosion identified. Mild to moderate degeneration of the SI joints. The imaged intra-abdominal structures are unremarkable. Probable left renal cyst is partially imaged. IMPRESSION: 1. No acute fracture or subluxation. 2. Levoscoliosis with multilevel degenerative changes of the above resulting in associated central canal and neural foraminal narrowing. ACT 112: Negative or not required by law. The above report was generated using voice recognition software. It may contain grammatical, syntax or spelling errors. Electronically signed by: Gavin Recio M.D. 11/30/2022 5:28 PM Lumbar Spine MRI 12/02/22 00:00 MR lumbar spine wo con CLINICAL HISTORY: 82 years-old Male with lumbar stenosis, b/l weakness. Chronic low back pain COMPARISON: CT lumbar spine 11/30/2022. TECHNIQUE: Multiplanar, multi sequence MRI of the lumbar spine was performed without intravenous contrast. FINDINGS: Motion degraded exam. No acute fracture, subluxation or endplate erosion. Mild Modic type I endplate degeneration at L5-S1. Conus medullaris terminates at L1-L2. Severe multilevel facet arthrosis. Spondylotic spurring with posterior annular disc bulging and disc osteophyte complex formations are noted at several levels. Suboptimal evaluation of the central canal and neural foramen secondary to the motion artifact. Marrow edema with surrounding soft tissue edema involves the left L4-L5 pedicles and facets, likely degenerative/reactive. Partially imaged probable cyst of the left kidney. L1-L2: Mild intervertebral disc space narrowing with spondylotic spurring and small circumferential annular disc bulging. Mild central canal stenosis. Mild bilateral neural foraminal narrowing. L2-L3: Moderate intervertebral disc space narrowing. Posterior annular disc bulge with ligamentum flavum thickening and facet arthrosis results in moderate central canal stenosis with mild to moderate bilateral foraminal narrowing. AP dimension of the thecal sac measures 7.5 mm. L3-L4: Moderate intervertebral disc space narrowing. Spondylotic spurring with posterior annular disc bulge, ligamentum flavum thickening and advanced facet arthrosis. Severe central canal stenosis with severe right and moderate left foraminal narrowing. AP dimension of the thecal sac measures 4 mm. Severe narrowing of the lateral recesses. L4-L5: Moderate intervertebral disc space narrowing. Grade 1 anterolisthesis, likely degenerative. Spondylotic spurring with posterior disc osteophyte complex, ligamentum flavum thickening and advanced facet arthrosis. Moderate central canal stenosis with AP dimension of the thecal sac measuring 8 mm. There is at least moderate narrowing of the lateral recesses. Severe right with moderate to severe left foraminal narrowing. L5-S1: Mild to moderate intervertebral disc space narrowing. Posterior disc osteophyte complex with ligamentum flavum thickening and moderate to severe facet arthrosis. The central canal is patent. Mild to moderate bilateral foraminal narrowing. Mild levoscoliosis. IMPRESSION: 1. Motion degraded exam. 2. Levoscoliosis with multilevel degenerative changes of the above resulting in associated central canal and neural foraminal narrowing. 3. No acute fracture. ACT 112: Negative or not required by law. The above report was generated using voice recognition software. It may contain grammatical, syntax or spelling errors. Dictated: 12/02/2022 1:53 PM Transcribed: 12/02/2022 2:29 PM Compa [id number] [facility]_Bib [id number] Electronically signed by: Gavin Recio M.D. 12/02/2022 2:30 PM Lumbar Spine X-Ray 12/03/22 11:55 FL lumbar spine 2-3V CLINICAL HISTORY: L3-L5 DECOMPRESSION AND FUSION COMPARISON STUDY: MR lumbar spine 12/02/2022 FLUOROSCOPY TIME: 25.3 seconds FLUOROSCOPY IMAGES: 2 EXPOSURE DOSE: 17.39 mGy FINDINGS: Posterior interbody priscilla and screw fusion hardware is noted at what is labeled the L3-L5 levels. The hardware appears intact. No acute fracture or unexpected opaque foreign body identified. IMPRESSION: Fluoroscopic assistance as above. ACT 112: Negative or not required by law. Electronically signed by: Gavin Recio M.D. 12/03/2022 4:02 PM Thoracic Spine MRI 12/07/22 07:56 MR thoracic spine wo con CLINICAL HISTORY: leg weakness TECHNIQUE: Multiplanar sequences through the thoracic spine were obtained, without intravenous contrast. Comparison: None available at the time of this dictation. FINDINGS: Exam is limited by patient motion. Degenerative disc disease is seen with multiple posterior disc bulges. The most prominent is at T11-T12 and appears to result in severe canal stenosis, AP diameter 3 mm, with moderate bilateral foraminal stenosis. The spinal canal and neural foramina are patent. The spinal ligaments are intact, without evidence of disruption or abnormal signal intensity. The spinal cord is normal in signal intensity and there is no evidence of cord contusion. There is no evidence of an extradural, intradural, extramedullary or intramedullary lesion. Visualized soft tissues are normal. IMPRESSION: Highly limited exam due to patient motion. There is a broad-based posterior disc bulge at T11-T12 with likely severe canal stenosis, AP diameter of 3 mm, and moderate bilateral neuroforaminal stenosis. ACT 112: Negative or not required by law. Electronically signed by: Beka Merlos M.D. 12/07/2022 1:30 PM Thoracic Spine X-Ray 12/09/22 13:45 [place] thoracic spine 2V CLINICAL HISTORY: T10-T12 DECOMPRESSION AND FUSION COMPARISON STUDY: Thoracic spine MRI 12/07/2022. FLUOROSCOPY TIME: 30 seconds FLUOROSCOPY IMAGES: 2 Ka,r: 23.1 mGy FINDINGS: Posterior decompression and fusion within the lower thoracic spine. The exact levels are difficult to determine on this spot image but favor the T10-T12 levels. The hardware appears intact. IMPRESSION: Fluoroscopic assistance as above. ACT 112: Negative or not required by law. Electronically signed by: Piyush Dotson M.D. 12/09/2022 6:22 PM Abdomen/Pelvis CT 12/09/22 20:44 Exam(s): CT ABDOMEN + PELVIS Without Contrast EXAM: CT Abdomen and Pelvis Without Intravenous Contrast CLINICAL HISTORY: Reason for exam: abd pain. TECHNIQUE: Axial computed tomography images of the abdomen and pelvis without intravenous contrast. CTDI is 28 mGy and DLP is 1541.9 mGy-cm. Automated exposure control was utilized for the study. A dose lowering technique was utilized adhering to the principles of ALARA. COMPARISON: No relevant prior studies available. FINDINGS: Lung bases: Consolidative atelectasis at the lung bases with bronchiectasis. ABDOMEN: Liver: Unremarkable. Gallbladder and bile ducts: Unremarkable. 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 Spleen: Unremarkable. Adrenals: Unremarkable. Kidneys and ureters: Cortical cysts in the kidneys bilaterally. No hydronephrosis. Stomach and bowel: Unremarkable. PELVIS: Appendix: No findings to suggest acute appendicitis. Bladder: Unremarkable. Reproductive: Brachytherapy beads within the prostate. ABDOMEN and PELVIS: Intraperitoneal space: Unremarkable. No free air. No significant fluid collection. Bones/joints: Indeterminate sclerotic lesion within the right iliac wing measuring up to 3 cm (image [id number]). Postsurgical changes within the thoracolumbar spine. Soft tissue gas within the paraspinous musculature is likely postprocedural. No fluid collection. Bilateral hip arthroplasties. Soft tissues: See above. Vasculature: Aortobiiliac atherosclerotic calcifications. Lymph nodes: Unremarkable. IMPRESSION: 1. Consolidative atelectasis at the lung bases with bronchiectasis. Findings are suggestive of chronic aspiration pneumonia. 2. 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 3. Indeterminate sclerotic lesion within the right iliac wing measuring up to 3 cm (image [id number]). A metastatic lesion could have this appearance. Electronically signed by: Dale Huang MD 12/09/22 23:47 PM Chest X-Ray 12/09/22 20:49 SINGLE VIEW CHEST CLINICAL HISTORY: Renal failure. FINDINGS: An AP, portable, upright chest radiograph is compared to study dated 11/30/2022. The examination is degraded by portable technique and apical lordotic positioning. A single lead cardiac pacemaker is unchanged in position. The heart is enlarged noting atherosclerotic calcification of the thoracic aorta. The pulmonary vasculature is noncongested. Chronic interstitial thickening similar to previous. There are low lung volumes with bibasilar scarring/atelectasis. No airspace consolidation or large pleural effusion is identified. No pneumothorax is seen. The skeletal structures are osteopenic. The bony thorax is grossly intact. Fusion hardware is noted in the lumbar spine. A catheter projects over the upper abdomen. IMPRESSION: 1. Cardiomegaly and cardiac pacemaker without radiographic evidence of congestive failure. 2. Low lung volumes with bibasilar atelectasis. ACT 112: Negative or not required by law. Electronically signed by: Paramjit Hitchcock M.D. 12/10/2022 7:28 AM
[2022-12-10] MEDS: MIRTAZAPINE TAB 15 MG TAB PO SCH (21:22)
[2022-12-10] MEDS: OLANZapine 5 MG TABLET PO SCH (21:22)
[2022-12-10] MEDS: DOCUSATE SODIUM/SENNA 50/8.6MG TAB PO SCH (21:23)
[2022-12-10] MEDS: rOPINIRole HCL 1 MG TABLET PO SCH (21:23)
[2022-12-10] MEDS: ATORVASTATIN 20 MG TAB PO SCH (21:24)
[2022-12-10] MEDS: MAGNESIUM OXIDE 400 MG TAB PO SCH (21:24)
[2022-12-11] MEDS: traMADol HCL 50 MG TABLET PO PRN ×5 (01:37→21:11)
[2022-12-11] MEDS: ACETAMINOPHEN 500 MG TAB PO SCH ×3 (05:48→21:49)
[2022-12-11] MEDS: ALBUT/IPRATROP 3MG/0.5MG NEB 3 ML VIAL NEB SCH ×2 (06:49→20:25)
[2022-12-11] MEDS: SODIUM CHLOR 7% 4 ML NEB INH SCH ×2 (06:49→20:25)
[2022-12-11 07:53] LABS: Hematocrit (blood only) 25.4 % (42.0-52.0); Hemoglobin 8.1 g/dl (14.0-18.0); Mean Corpuscular Hemoglobin 30.3 pg (25.0-34.0); Mean Corpuscular Hgb Conc 31.9 g/dL (32.0-36.0); Mean Corpuscular Volume 95.1 fL (80.0-100.0); Mean Platelet Volume 10.9 fL (9.4-12.4); Platelet Count 194 K/uL (130-400); Red Blood Count 2.67 M/uL (4.70-6.10); White Blood Count 13.05 K/ul (4.8-10.8)
[2022-12-11 08:08] LABS: BUN Creatinine Ratio 31.4 (10-20); Calcium 9.2 mg/dl (8.6-10.3); Creatinine Clr Calc Pharmacy 65.4 ml/min; Est GFR (African American) 76.2 ml/min; Est GFR (Non-African American) 65.8 ml/min; Potassium 4.2 mmol/L (3.5-5.1)
[2022-12-11] MEDS: METOPROLOL TARTRATE 25 MG TAB PO SCH ×2 (09:37→21:13)
[2022-12-11] MEDS: FLUTICASONE/VILANTEROL 200/25MCG 14 PUFFS/INHALER INH SCH (09:38)
[2022-12-11] MEDS: guaiFENesin 600 MG TABCR PO SCH ×2 (09:38→21:13)
--- NOTE | 2022-12-11 10:52 | Orthopedic Progress Note ---
Date of Service December 11, 2022 Assessment & Plan (1) Thoracic spinal stenosis: Plan: At this time we will continue with physical therapy occupational therapy and plan for rehab next week. Admission and Anticipated Discharge Date Admission Date: December 02, 2022 Subjective Patient's pain is controlled. Still struggling with significant leg weakness but does not have any pain while in bed. He did stand yesterday with therapy. Physical Exam Physical Exam: On exam he is currently in bed. CINTIA drain is functioning. He has reasonable strength testing lower extremities. Sensory is intact. Results & Data Vital Signs (Past 12 Hours) Vital Signs Temp Pulse Resp BP Pulse Ox O2 Del Method O2 Flow Rate 12/11/22 09:46 Nasal Cannula 3 12/11/22 08:08 36.8 C 75 16 108/69 94 Nasal Cannula 3 12/11/22 06:49 83 18 97 Nasal Cannula 4 12/10/22 23:03 36.6 C 88 18 123/66 97 Nasal Cannula 4 Queries Orthopedic Spine Acute Posthemorrhagic Anemia: Yes
--- NOTE | 2022-12-11 12:11 | Communication Note ---
Date of Service: December 11, 2022 I have seen and examined the patient and have discussed the case with the PA-C provider. I agree with the assessment and plan as stated. 82 yo M worked with PT this morning. Unable to stand because his legs are too weak. He is able to move to bedside chair. Having some gluteus spasms that are resolved wtih repositioning in the bed. He appears uncomfortable to a certain degree but in no significant distress. Labs/meds reviewed. Hemodynamically stable and afebrile. Mentating at baseline. Cont current care. DO Jordon
[2022-12-11] MEDS: CALCIUM 600MG + VIT D 400 IU TAB PO SCH (13:03)
[2022-12-11] MEDS: dilTIAZem HCL 180 MG CAPCR PO SCH (13:03)
[2022-12-11] MEDS: TAMSULOSIN HCL 0.4 MG CAP PO SCH (13:04)
[2022-12-11] MEDS: ESCITALOPRAM OXALATE 20 MG TAB PO SCH (13:04)
[2022-12-11] MEDS: HYDROCODONE/ACETAMOPHEN 5/325MG TAB PO PRN (13:08)
[2022-12-11] MEDS: POTASSIUM CHLORIDE 10 MEQ TABCR PO SCH (13:08)
[2022-12-11] MEDS: ASPIRIN 81 MG ECTAB PO SCH (13:34)
[2022-12-11] MEDS: SPIRONOLACTONE 12.5 MG TAB PO SCH (13:35)
--- NOTE | 2022-12-11 16:10 | Hospitalist Progress Note ---
Date of Service December 11, 2022 Assessment & Plan (1) Thoracic spinal stenosis: (2) Lumbar spinal stenosis: (3) Weakness: Plan: Patient is 82-year-old male with PMH chronic atrial fibrillation chronically anticoagulated on Eliquis, tachybradycardia syndrome s/p pacemaker, HLD, chronic respiratory failure on chronic oxygen, chronic CHF preserved EF, hypothyroidism, CKD III, depression, anxiety, RLS, RUDY presented to ER with C/O progressive BLE weakness. CT head: No acute intracranial findings CT lumbar Spine: IMPRESSION:1. No acute fracture or subluxation.2. Levoscoliosis with multilevel degenerative changes of the above resulting in associated centra l canal and neural foraminal narrowing. Lumbar spine MRI with levoscoliosis with multilevel degenerative changes of the above resulting in associated central canal and neural foraminal narrowing. S/p lumbar decompression bilaterally facetectomies and foraminotomies L2-L3, L3- L4 and L4-5 and posterior spinal fusion L3-L4 L4-[address] Esteves on 12/03 Thoracic spine MRI ordered by spine Ortho due to ongoing weakness There is a broad-based posterior disc bulge at T11-T12 with likely severe canal stenosis, AP diameter of 3 mm, and moderate bilateral neuroforaminal stenosis. S/p decompression fusion T10-T12 by Dr. Esteves on 12/09 Activity and wound care orders as per ortho Pain control with bowel regimen PT/OT, plan for discharge to rehab Acute blood loss anemia In setting of post-of blood loss, dilutional factors Asymptomatic Hgb 8.1 (from 8.5 yesterday, pre-op hgb 9.8) Continue to monitor H/H, transfuse blood products PRN (4) Chronic atrial fibrillation: Plan: Eliquis on hold postop from initial surgery and given potential need for add'l surgery, was transitioned to full dose Lovenox on 12/07 Eliquis remians on hold now - per ortho to resume as appropriate (currently POD#2) Cont metoprolol tartrate, diltiazem (5) Acute kidney injury superimposed on CKD: (6) Chronic kidney disease (CKD), stage III (moderate): Plan: Creatinine peaked to 1.7 on 12/05 -in the setting of surgery, n.p.o. status Baseline creatinine low 1s --> resolved Continue to monitor renal functions (7) Hypothyroidism: Plan: Chronic, stable Continue levothyroxine (8) Chronic heart failure with preserved ejection fraction: Plan: Noting some abdominal distention. Resumed spironolactone and torsemide today (9) Tachy-noni syndrome: Plan: S/p pacemaker (10) Chronic respiratory failure: Plan: Chronic bronchitis, bronchiectasis On chronic 2-3 L oxygen via nasal cannula Continue oxygen supplementation Continue home inhalers, nebulizers (11) HTN (hypertension): Plan: Continue diltiazem, metoprolol tartrate chronic, stable (12) Hyperlipidemia: Plan: Continue atorvastatin (13) Anxiety and depression: Plan: Continue Lexapro (14) Restless leg syndrome: Plan: Continue ropinirole (15) Abnormal CT of the abdomen: Plan: CT a/p obtained last evening in setting of abd bloating 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 change from previous, per d/w radiology today) Also showing indeterminate sclerotic lesion within the right iliac wing measuring up to 3 cm. A metastatic lesion could have this appearance. Significant in setting of prostate cancer, currently receiving Lupron inj Q3M (due in Jan 2023), has f/u with Dr. Preciado 01/07 Dr. Preciado aware of results, pushed imaging for further determination of treatment, need for bone scan Discussed with patient, family at bedside (16) Sleep apnea: Plan: BiPAP at bedtime DVT PROPHYLAXIS TEDs/SCDs while not receiving anticoagulation Dispo -pending, PT/OT, case management following Patient seen in collaboration with Dr. Ruvalcaba. Admission and Anticipated Discharge Date Admission Date: December 02, 2022 Supervising Physician Co-Signing Physician Notes I have seen and examined the patient and have discussed the case with the PA-C provider. I agree with the assessment and plan as stated. 82 yo M worked with PT this morning. Unable to stand because his legs are too weak. He is able to move to bedside chair. Having some gluteus spasms that are resolved wtih repositioning in the bed. He appears uncomfortable to a certain degree but in no significant distress. Labs/meds reviewed. Hemodynamically stable and afebrile. Mentating at baseline. Cont current care. DO Ani Ruvalcaba Seen and examined in follow up in 383-2. Had a bowel movement yesterday and feels less abdominal discomfort but still bloated. Some surgical site discomfort. Has leg weakness but has been making progress with therapy. No F/C, lightheadedness, CP, SOB, N/V, dysuria. Review of Systems Review of Systems: At least ten systems reviewed and negative except as noted in the HPI. Physical Exam Physical Exam: Gen: WD/WN, elderly, male,resting comfortably in bed, NAD, A&O x3 HEENT: Normocephalic, atraumatic, conjunctivae moist, sclerae anicteric, mucous membranes moist Lung: Diminished at bases bilaterally, on oxygen 3-4 L Heart: irregular rate and rhythm Abdomen: Soft, NT, mild distention, +BS x 4 Extremities: +Spinal dressing c/d/i. Trace edema Skin: Warm, no rash Results & Data Results & Data Vital Signs (Past 12 Hours) Vital Signs Temp Pulse Resp BP Pulse Ox O2 Del Method O2 Flow Rate 12/11/22 15:47 36.8 C 87 18 118/73 95 Nasal Cannula 3 12/11/22 09:46 Nasal Cannula 3 12/11/22 08:08 36.8 C 75 16 108/69 94 Nasal Cannula 3 12/11/22 06:49 83 18 97 Nasal Cannula 4 Laboratory Results Short CBC 12/11/22 Range/Units 07:03 WBC 13.05 H (4.8-10.8) K/ul Hgb 8.1 L (14.0-18.0) g/dl Hct 25.4 L (42.0-52.0) % Plt Count 194 (130-400) K/uL BMP 12/11/22 07:03 Sodium 140 Potassium 4.2 Chloride 99 Carbon Dioxide 38 H BUN 33 H Creatinine 1.05 Glucose 95 Calcium 9.2 Diagnostic Findings Chest X-Ray 11/30/22 13:04 XR chest 1V portable CLINICAL HISTORY: Sepsis TECHNIQUE: Single frontal radiograph of the chest was obtained. Comparison: Comparison is made to chest radiograph 08/05/2022 FINDINGS: Lines and tubes are stable. Calcified aortic knob is seen. Lungs are underinflated but clear. No evidence of pleural effusion or pneumothorax. IMPRESSION: No acute abnormalities and in particular no radiographic evidence of pneumonia. ACT 112: Negative or not required by law. Electronically signed by: Beka Merlos M.D. 11/30/2022 1:[address] 11/30/22 13:04 CT head/brain wo con CLINICAL HISTORY: 82 years-old Male with fall. Acute head trauma status post fall TECHNIQUE: Multiple axial CT images of the head were obtained without contrast. A dose lowering technique was utilized adhering to the principles of ALARA. CT DOSE: 625.8 mGy.cm COMPARISON: None. FINDINGS: No acute intracranial hemorrhage, midline shift, intracranial mass, hydrocephalus, territorial ischemia or abnormal extra-axial collection. Involutional changes with chronic microvascular ischemic disease. The calvarium is intact. Prior bilateral lens repair. The paranasal sinuses, mastoid air cells, and middle ear cavities are clear. IMPRESSION: No acute intracranial abnormality or calvarial fracture. ACT 112: Negative or not required by law. The above report was generated using voice recognition software. It may contain grammatical, syntax or spelling errors. Electronically signed by: Gavin Recio M.D. 11/30/2022 1:[address] 11/30/22 16:20 CT lumbar spine wo con HISTORY: 82 years-old Male BLE weakness acute pain of the lower legs COMPARISON: None TECHNIQUE: Multiple axial CT images of the MR spine were obtained without the use of IV contrast. A dose lowering technique was used consistent with the principals of ALARA. FINDINGS: Suboptimal evaluation of the central canal and neural foramina by CT technique. Severe multilevel facet arthrosis. Spondylotic spurring with posterior annular disc bulging and disc osteophyte complex formations are noted at several levels L1-L2: Mild central canal stenosis. Neural foramen are patent. L2-L3: Posterior annular disc bulge with ligamentum flavum thickening and facet arthrosis results in moderate central canal stenosis with mild left and [id number] right foraminal narrowing. L3-L4: Spondylotic spurring with posterior annular disc bulge, ligamentum flavum thickening and advanced facet arthrosis. Severe central canal stenosis with moderate right and mild to moderate left foraminal narrowing. L4-L5: Grade 1 anterolisthesis, likely degenerative. Spondylotic spurring with posterior disc osteophyte complex, ligamentum flavum thickening and advanced facet arthrosis. Severe central canal stenosis with moderate to severe right and moderate left foraminal narrowing. L5-S1: Posterior disc osteophyte complex with ligamentum flavum thickening and moderate to severe facet arthrosis. The central canal is patent. Moderate bilateral foraminal narrowing. Mild levoscoliosis. No acute fracture, subluxation or endplate erosion identified. Mild to moderate degeneration of the SI joints. The imaged intra-abdominal structures are unremarkable. Probable left renal cyst is partially imaged. IMPRESSION: 1. No acute fracture or subluxation. 2. Levoscoliosis with multilevel degenerative changes of the above resulting in associated central canal and neural foraminal narrowing. ACT 112: Negative or not required by law. The above report was generated using voice recognition software. It may contain grammatical, syntax or spelling errors. Electronically signed by: Gavin Recio M.D. 11/30/2022 5:28 PM Lumbar Spine MRI 12/02/22 00:00 MR lumbar spine wo con CLINICAL HISTORY: 82 years-old Male with lumbar stenosis, b/l weakness. Chronic low back pain COMPARISON: CT lumbar spine 11/30/2022. TECHNIQUE: Multiplanar, multi sequence MRI of the lumbar spine was performed without intravenous contrast. FINDINGS: Motion degraded exam. No acute fracture, subluxation or endplate erosion. Mild Modic type I endplate degeneration at L5-S1. Conus medullaris terminates at L1- L2. Severe multilevel facet arthrosis. Spondylotic spurring with posterior annular disc bulging and disc osteophyte complex formations are noted at several levels. Suboptimal evaluation of the central canal and neural foramen secondary to the motion artifact. Marrow edema with surrounding soft tissue edema involves the left L4-L5 pedicles and facets, likely degenerative/reactive. Partially imaged probable cyst of the left kidney. L1-L2: Mild intervertebral disc space narrowing with spondylotic spurring and small circumferential annular disc bulging. Mild central canal stenosis. Mild bilateral neural foraminal narrowing. L2-L3: Moderate intervertebral disc space narrowing. Posterior annular disc bulge with ligamentum flavum thickening and facet arthrosis results in moderate central canal stenosis with mild to moderate bilateral foraminal narrowing. AP dimension of the thecal sac measures 7.5 mm. L3-L4: Moderate intervertebral disc space narrowing. Spondylotic spurring with posterior annular disc bulge, ligamentum flavum thickening and advanced facet arthrosis. Severe central canal stenosis with severe right and moderate left foraminal narrowing. AP dimension of the thecal sac measures 4 mm. Severe narrowing of the lateral recesses. L4-L5: Moderate intervertebral disc space narrowing. Grade 1 anterolisthesis, likely degenerative. Spondylotic spurring with posterior disc osteophyte complex, ligamentum flavum thickening and advanced facet arthrosis. Moderate central canal stenosis with AP dimension of the thecal sac measuring 8 mm. There is at least moderate narrowing of the lateral recesses. Severe right with moderate to severe left foraminal narrowing. L5-S1: Mild to moderate intervertebral disc space narrowing. Posterior disc osteophyte complex with ligamentum flavum thickening and moderate to severe facet arthrosis. The central canal is patent. Mild to moderate bilateral foraminal narrowing. Mild levoscoliosis. IMPRESSION: 1. Motion degraded exam. 2. Levoscoliosis with multilevel degenerative changes of the above resulting in associated central canal and neural foraminal narrowing. 3. No acute fracture. ACT 112: Negative or not required by law. The above report was generated using voice recognition software. It may contain grammatical, syntax or spelling errors. Dictated: 12/02/2022 1:53 PM Transcribed: 12/02/2022 2:29 PM Compa [id number] [email or web address]_Bib [id number] Electronically signed by: Gavin Recio M.D. 12/02/2022 2:30 PM Lumbar Spine X-Ray 12/03/22 11:55 FL lumbar spine 2-3V CLINICAL HISTORY: L3-L5 DECOMPRESSION AND FUSION COMPARISON STUDY: MR lumbar spine 12/02/2022 FLUOROSCOPY TIME: 25.3 seconds FLUOROSCOPY IMAGES: 2 EXPOSURE DOSE: 17.39 mGy FINDINGS: Posterior interbody priscilla and screw fusion hardware is noted at what is labeled the L3-L5 levels. The hardware appears intact. No acute fracture or unexpected opaque foreign body identified. IMPRESSION: Fluoroscopic assistance as above. ACT 112: Negative or not required by law. Electronically signed by: Gavin Recio M.D. 12/03/2022 4:02 PM Thoracic Spine MRI 12/07/22 07:56 MR thoracic spine wo con CLINICAL HISTORY: leg weakness TECHNIQUE: Multiplanar sequences through the thoracic spine were obtained, without intravenous contrast. Comparison: None available at the time of this dictation. FINDINGS: Exam is limited by patient motion. Degenerative disc disease is seen with multiple posterior disc bulges. The most prominent is at T11-T12 and appears to result in severe canal stenosis, AP diameter 3 mm, with moderate bilateral foraminal stenosis. The spinal canal and neural foramina are patent. The spinal ligaments are intact, without evidence of disruption or abnormal signal intensity. The spinal cord is normal in signal intensity and there is no evidence of cord contusion. There is no evidence of an extradural, intradural, extramedullary or intramedullary lesion. Visualized soft tissues are normal. IMPRESSION: Highly limited exam due to patient motion. There is a broad-based posterior disc bulge at T11-T12 with likely severe canal stenosis, AP diameter of 3 mm, and moderate bilateral neuroforaminal stenosis. ACT 112: Negative or not required by law. Electronically signed by: Beka Merlos M.D. 12/07/2022 1:30 PM Thoracic Spine X-Ray 12/09/22 13:45 [place] thoracic spine 2V CLINICAL HISTORY: T10-T12 DECOMPRESSION AND FUSION COMPARISON STUDY: Thoracic spine MRI 12/07/2022. FLUOROSCOPY TIME: 30 seconds FLUOROSCOPY IMAGES: 2 Ka,r: 23.1 mGy FINDINGS: Posterior decompression and fusion within the lower thoracic spine. The exact levels are difficult to determine on this spot image but favor the T10-T12 levels. The hardware appears intact. IMPRESSION: Fluoroscopic assistance as above. ACT 112: Negative or not required by law. Electronically signed by: Piyush Dotson M.D. 12/09/2022 6:22 PM Abdomen/Pelvis CT 12/09/22 20:44 Exam(s): CT ABDOMEN + PELVIS Without Contrast EXAM: CT Abdomen and Pelvis Without Intravenous Contrast CLINICAL HISTORY: Reason for exam: abd pain. TECHNIQUE: Axial computed tomography images of the abdomen and pelvis without intravenous contrast. CTDI is 28 mGy and DLP is 1541.9 mGy-cm. Automated exposure control was utilized for the study. A dose lowering technique was utilized adhering to the principles of ALARA. COMPARISON: No relevant prior studies available. FINDINGS: Lung bases: Consolidative atelectasis at the lung bases with bronchiectasis. ABDOMEN: Liver: Unremarkable. Gallbladder and bile ducts: Unremarkable. 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 Spleen: Unremarkable. Adrenals: Unremarkable. Kidneys and ureters: Cortical cysts in the kidneys bilaterally. No hydronephrosis. Stomach and bowel: Unremarkable. PELVIS: Appendix: No findings to suggest acute appendicitis. Bladder: Unremarkable. Reproductive: Brachytherapy beads within the prostate. ABDOMEN and PELVIS: Intraperitoneal space: Unremarkable. No free air. No significant fluid collection. Bones/joints: Indeterminate sclerotic lesion within the right iliac wing measuring up to 3 cm (image [id number]). Postsurgical changes within the thoracolumbar spine. Soft tissue gas within the paraspinous musculature is likely postprocedural. No fluid collection. Bilateral hip arthroplasties. Soft tissues: See above. Vasculature: Aortobiiliac atherosclerotic calcifications. Lymph nodes: Unremarkable. IMPRESSION: 1. Consolidative atelectasis at the lung bases with bronchiectasis. Findings are suggestive of chronic aspiration pneumonia. 2. 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 3. Indeterminate sclerotic lesion within the right iliac wing measuring up to 3 cm (image [id number]). A metastatic lesion could have this appearance. Electronically signed by: Dale Huang MD 12/09/22 23:47 PM Chest X-Ray 12/09/22 20:49 SINGLE VIEW CHEST CLINICAL HISTORY: Renal failure. FINDINGS: An AP, portable, upright chest radiograph is compared to study dated 11/30/2022. The examination is degraded by portable technique and apical lordotic positioning. A single lead cardiac pacemaker is unchanged in position. The heart is enlarged noting atherosclerotic calcification of the thoracic aorta. The pulmonary vasculature is noncongested. Chronic interstitial thickening similar to previous. There are low lung volumes with bibasilar scarring/atelectasis. No airspace consolidation or large pleural effusion is identified. No pneumothorax is seen. The skeletal structures are osteopenic. The bony thorax is grossly intact. Fusion hardware is noted in the lumbar spine. A catheter projects over the upper abdomen. IMPRESSION: 1. Cardiomegaly and cardiac pacemaker without radiographic evidence of congestive failure. 2. Low lung volumes with bibasilar atelectasis. ACT 112: Negative or not required by law. Electronically signed by: Paramjit Hitchcock M.D. 12/10/2022 7:28 AM
[2022-12-11] MEDS: DOCUSATE SODIUM/SENNA 50/8.6MG TAB PO SCH (21:13)
[2022-12-11] MEDS: rOPINIRole HCL 1 MG TABLET PO SCH (21:13)
[2022-12-11] MEDS: MIRTAZAPINE TAB 15 MG TAB PO SCH (21:13)
[2022-12-11] MEDS: OLANZapine 5 MG TABLET PO SCH (21:13)
[2022-12-11] MEDS: MAGNESIUM OXIDE 400 MG TAB PO SCH (21:13)
[2022-12-11] MEDS: ATORVASTATIN 20 MG TAB PO SCH (21:13)
[2022-12-11] MEDS: HYDROmorphone INJ 0.5 MG/0.5 ML SYR IV PRN (23:15)
[2022-12-12] MEDS: traMADol HCL 50 MG TABLET PO PRN ×4 (01:56→22:30)
[2022-12-12] MEDS: ACETAMINOPHEN 500 MG TAB PO SCH ×3 (06:01→20:48)
[2022-12-12 07:04] LABS: Hemoglobin 9.1 g/dl (14.0-18.0); Mean Corpuscular Hemoglobin 30.3 pg (25.0-34.0); Mean Corpuscular Hgb Conc 31.4 g/dL (32.0-36.0); Mean Corpuscular Volume 96.7 fL (80.0-100.0); Mean Platelet Volume 10.8 fL (9.4-12.4); Platelet Count 220 K/uL (130-400); RDW Coefficient of Variation 16.1 % (11.5-14.5); RDW Standard Deviation 56.2 fL (36.4-46.3)
[2022-12-12] MEDS: ALBUT/IPRATROP 3MG/0.5MG NEB 3 ML VIAL NEB SCH ×2 (07:26→20:04)
[2022-12-12] MEDS: SODIUM CHLOR 7% 4 ML NEB INH SCH ×2 (07:26→20:04)
[2022-12-12 07:31] LABS: BUN Creatinine Ratio 29.1 (10-20); Calcium 9.6 mg/dl (8.6-10.3); Creatinine Clr Calc Pharmacy 66.6 ml/min; Est GFR (Non-African American) 67.3 ml/min; Potassium 4.9 mmol/L (3.5-5.1)
--- NOTE | 2022-12-12 07:48 | Hospitalist Progress Note ---
Date of Service December 12, 2022 Assessment & Plan (1) Post-op pneumonia: Plan: CT reading pending, but by wet read there is some bibasilar infiltrates, which taken together with his coughing and pekid appearance, may be consistent with a post operative pnuemonia. WBC also continues to rise. blood cultures, CBC, procalcitonin, sputum culture and MRSA nasal swab now. Empiric treatment with vanc x 1 dose (will cont if MRSA is positive) and zosyn. Updated patient's by phone regarding the changes. (2) Thoracic spinal stenosis: (3) Lumbar spinal stenosis: (4) Weakness: Plan: Patient is 82-year-old male with PMH chronic atrial fibrillation chronically anticoagulated on Eliquis, tachybradycardia syndrome s/p pacemaker, HLD, chronic respiratory failure on chronic oxygen, chronic CHF preserved EF, hypothyroidism, CKD III, depression, anxiety, RLS, RUDY presented to ER with C/O progressive BLE weakness. CT head: No acute intracranial findings CT lumbar Spine: IMPRESSION:1. No acute fracture or subluxation.2. Levoscoliosis with multilevel degenerative changes of the above resulting in associated central canal and neural foraminal narrowing. Lumbar spine MRI with levoscoliosis with multilevel degenerative changes of the above resulting in associated central canal and neural foraminal narrowing. S/p lumbar decompression bilaterally facetectomies and foraminotomies L2-L3, L3- L4 and L4-5 and posterior spinal fusion L3-L4 L4-[address] Esteves on 12/03 Thoracic spine MRI ordered by spine Ortho due to ongoing weakness There is a broad-based posterior disc bulge at T11-T12 with likely severe canal stenosis, AP diameter of 3 mm, and moderate bilateral neuroforaminal stenosis. S/p decompression fusion T10-T12 by Dr. Esteves on 12/09 Activity and wound care orders as per ortho Pain control with bowel regimen PT/OT, plan for discharge to rehab Acute blood loss anemia In setting of post-of blood loss, dilutional factors Asymptomatic Hgb 8.1 (from 8.5 yesterday, pre-op hgb 9.8) Continue to monitor H/H, transfuse blood products PRN (5) Chronic respiratory failure: Plan: Chronic bronchitis, bronchiectasis On chronic 2-3 L oxygen via nasal cannula Continue oxygen supplementation Continue home inhalers, nebulizers (6) Chronic atrial fibrillation: Plan: Eliquis on hold postop from initial surgery and given potential need for add'l surgery, was transitioned to full dose Lovenox on 12/07 Eliquis remians on hold now - per ortho to resume as appropriate (currently POD#2) Cont metoprolol tartrate, diltiazem (7) Acute kidney injury superimposed on CKD: (8) Chronic kidney disease (CKD), stage III (moderate): Plan: Creatinine peaked to 1.7 on 12/05 -in the setting of surgery, n.p.o. status Baseline creatinine low 1s --> resolved Continue to monitor renal functions (9) Hypothyroidism: Plan: Chronic, stable Continue levothyroxine (10) Chronic heart failure with preserved ejection fraction: Plan: Noting some abdominal distention. Resumed spironolactone and torsemide today (11) Tachy-noni syndrome: Plan: S/p pacemaker (12) HTN (hypertension): Plan: Continue diltiazem, metoprolol tartrate chronic, stable (13) Hyperlipidemia: Plan: Continue atorvastatin (14) Anxiety and depression: Plan: chronic, stable. Continue Lexapro (15) Restless leg syndrome: Plan: chronic, stable. 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 change from previous, per d/w radiology today) Also showing indeterminate sclerotic lesion within the right iliac wing measuring up to 3 cm. A metastatic lesion could have this appearance. Significant in setting of prostate cancer, currently receiving Lupron inj Q3M (due in Jan 2023), has f/u with Dr. Preciado 01/07 Dr. Preciado aware of results, pushed imaging for further determination of treatment, need for bone scan This was also discussed w patient and family together in the room. (17) Sleep apnea: Plan: BiPAP at bedtime DVT PROPHYLAXIS TEDs/SCDs while not receiving anticoagulation Dispo -uncertain at this time, cont hospitalization pending clinical improvement. Maribeth Ruvalcaba DO [facility] Hospitalist Admission and Anticipated Discharge Date Admission Date: December 02, 2022 Subjective 82 yo M s/p two separate back surgeries Reports his muscle spasms are improved Pain appears to be controlled Patient is reporting some slight cough Per Dr. Esteves he had some discolored mucus that was being pulled from the ET tube during the operation. Patient has not been very mobile secondary to pain and delayed postoperative recovery. Higher risk for postoperative pneumonia especially in the setting of chronic respiratory failure on oxygen Continues on his home nebulizers but still not improved Consideration given for postoperative pneumonia. CT chest was taken without formal reading. He does appear to have a small bibasilar infiltrates that may be consistent with atelectasis versus pneumonia but in the setting of his clinical picture, we will go ahead and treat empirically for this. I did contact his by phone and updated her all questions were answered. Physical Exam Physical Exam: CONSTITUTIONAL: WNWD, vitals as above, NAD EYES: normal conjunctivae, no scleral icterus ENT: external ear and nose normal, MMM NECK: trachea midline, RESPIRATORY: slight wheezing at the bases bilaterally, otherwise good airflow throughout, no crackles or rales, normal respiratory effort CARDIOVASCULAR: regular rate and rhythm, S1 and 2 heard without murmurs, gallops or rubs, no JVD, no peripheral edema CHEST: inspection of chest was normal GASTROINTESTINAL: soft, nontender, ND, no guarding MUSCULOSKELETAL: strength 5/5 throughout, head is normocephalic and atraumatic SKIN: warm and dry, back wound not visualized. NEUROLOGIC: CN 2-12 grossly intact, no sensory deficit, normal cognition, normal speech, no tremor PSYCHIATRIC: alert cooperative and oriented to person, place and time. Results & Data Results & Data Vital Signs (Past 12 Hours) Vital Signs Pulse Resp Pulse Ox O2 Del Method O2 Flow Rate 12/12/22 07:26 88 18 93 Nasal Cannula 3 12/11/22 21:10 Nasal Cannula 3 12/11/22 20:26 18 94 Nasal Cannula 2 Laboratory Results Short CBC 12/11/22 12/12/22 Range/Units 07:03 06:23 WBC 13.05 H 15.10 H (4.8-10.8) K/ul Hgb 8.1 L 9.1 L (14.0-18.0) g/dl Hct 25.4 L 29.0 L (42.0-52.0) % Plt Count 194 220 (130-400) K/uL BMP 12/11/22 12/12/22 07:03 06:23 Sodium 140 140 Potassium 4.2 4.9 Chloride 99 99 Carbon Dioxide 38 H 39 H BUN 33 H 30 H Creatinine 1.05 1.03 Glucose 95 100 H Calcium 9.2 9.6 Medications Administered Current Inpatient Medications Acetaminophen (Acetaminophen 500 Mg Tab) 1,000 mg PO Q8 [facility] Stop: 12/30/22 21:59 Last Admin: 12/12/22 06:01 Dose: 1,000 mg Acetaminophen (Acetaminophen 500 Mg Tab) 1,000 mg PO Q8H PRN PRN Reason: MILD Pain Scale 1,2,3 & Pre PT Stop: 01/02/23 17:12 Hydrocodone Bitart/Acetaminophen (Hydrocodone/Acetamophen 5/325mg Tab) 1 - 2 tab PO Q4H PRN PRN Reason: Pain & Pre PT Stop: 12/17/22 17:12 Last Admin: 12/11/22 13:08 Dose: 2 tab Al Hydrox/Mg Hydrox/Simethicone (Aluminum/Magnesium Susp 30 Ml Udc) 30 ml PO Q6H PRN PRN Reason: Dyspepsia Stop: 01/02/23 17:12 Albuterol (Albut/Ipratrop 3mg/0.5mg Neb 3 Ml Vial) 3 ml NEB BIDR [facility]; Protocol Stop: 12/31/22 09:44 Last Admin: 12/12/22 07:26 Dose: 3 ml Albuterol (Albuterol Hfa 8 Gm Inhaler) 2 puffs INH BIDR PRN PRN Reason: Shortness Of Breath Or Wheezing Stop: 12/30/22 18:59 Aspirin (Aspirin 81 Mg Ectab) 81 mg PO QAM [facility] Stop: 12/31/22 08:59 Last Admin: 12/11/22 13:34 Dose: 81 mg Atorvastatin Calcium (Atorvastatin 20 Mg Tab) 20 mg PO HS [facility] Stop: 12/30/22 20:59 Last Admin: 12/11/22 21:13 Dose: 20 mg Bisacodyl (Bisacodyl 10 Mg Supp) 10 mg OR DAILY PRN PRN Reason: Constipation Stop: 01/02/23 17:12 Last Admin: 12/10/22 12:26 Dose: 10 mg Calcium/Vitamin D (Calcium 600mg + Vit D 400 Iu Tab) 1 tab PO QAM [facility] Stop: 12/31/22 08:59 Last Admin: 12/11/22 13:03 Dose: 1 tab Diltiazem HCl (Diltiazem Hcl 180 Mg Capcr) 180 mg PO QAM [facility] Stop: 12/31/22 08:59 Last Admin: 12/11/22 13:03 Dose: 180 mg Diphenhydramine HCl (Diphenhydramine Capsule 25 Mg Cap) 25 mg PO Q6H PRN PRN Reason: Allergic Rhinitis/Insomnia Stop: 01/02/23 17:12 Escitalopram Oxalate (Escitalopram Oxalate 20 Mg Tab) 20 mg PO QAM [facility] Stop: 12/31/22 08:59 Last Admin: 12/11/22 13:04 Dose: 20 mg Famotidine (Famotidine 20 Mg Tab) 20 mg PO Q12H PRN PRN Reason: Dyspepsia Stop: 01/02/23 17:12 Fluticasone/Vilanterol (Fluticasone/Vilanterol 200/25mcg 14 Puffs/Inhaler) 1 puffs INH DAILY [facility] Stop: 12/31/22 08:59 Last Admin: 12/11/22 09:38 Dose: 1 puffs Guaifenesin (Guaifenesin 600 Mg Tabcr) 600 mg PO BID [facility] Stop: 12/30/22 20:59 Last Admin: 12/11/22 21:13 Dose: 600 mg Hydromorphone HCl (Hydromorphone Inj 0.5 Mg/0.5 Ml Syr) 0.5 mg IV Q3H PRN PRN Reason: MODERATE Pain (Scale 4,5,6) & Pre PT Stop: 12/17/22 17:12 Last Admin: 12/11/22 23:15 Dose: 0.5 mg Hydromorphone HCl (Hydromorphone Inj 1 Mg/Ml Syringe) 1 mg IV Q3H PRN PRN Reason: SEVERE Pain (Scale 7,8,9,10) Stop: 12/17/22 17:12 Last Admin: 12/09/22 16:25 Dose: 0.25 mg Hydroxyzine HCl (Hydroxyzine Hcl 25 Mg Tab) 25 mg PO Q8H PRN PRN Reason: Anxiety Stop: 01/02/23 17:12 Promethazine HCl 12.5 mg/ (Sodium Chloride) 50.5 mls @ 202 mls/hr IV Q6H PRN PRN Reason: Nausea &/or Vomiting Stop: 01/02/23 17:12 Influenza Virus Vaccine Quadrival (Do Not Administer Flu Vaccine) 1 each N/A PRN PRN PRN Reason: Notification Stop: 01/02/23 17:12 Lorazepam (Lorazepam 0.5 Mg Tab) 0.5 mg PO Q8H PRN PRN Reason: Sedation/Anxiety Stop: 01/02/23 17:12 Last Admin: 12/06/22 03:10 Dose: 0.5 mg Magnesium Hydroxide (Magnesium Hydroxide Susp 30 Ml Udc) 30 ml PO Q24H PRN PRN Reason: Constipation Stop: 01/02/23 17:12 Magnesium Oxide (Magnesium Oxide 400 Mg Tab) 400 mg PO HS [facility] Stop: 12/30/22 20:59 Last Admin: 12/11/22 21:13 Dose: 400 mg Metoclopramide HCl (Metoclopramide Hcl Inj 5 Mg/Ml 2 Ml Vial) 10 mg IV Q6H PRN PRN Reason: Nausea &/or Vomiting Stop: 01/02/23 17:12 Metoprolol Tartrate (Metoprolol Tartrate 25 Mg Tab) 25 mg PO BID [facility] Stop: 12/30/22 20:59 Last Admin: 12/11/22 21:13 Dose: 25 mg Mirtazapine (Mirtazapine Tab 15 Mg Tab) 30 mg PO HS [facility] Stop: 12/30/22 20:59 Last Admin: 12/11/22 21:13 Dose: 30 mg Naloxone HCl (Naloxone Hcl 0.4 Mg/1 Ml Vial/Carp) 0.1 mg IV Q5M PRN PRN Reason: Oversedation/Resp depression Stop: 01/02/23 17:12 Olanzapine (Olanzapine 5 Mg Tablet) 5 mg PO HS [facility] Stop: 12/30/22 20:59 Last Admin: 12/11/22 21:13 Dose: 5 mg Ondansetron HCl (Ondansetron Inj 2 Mg/Ml 2 Ml Vial) 4 mg IV Q6H PRN PRN Reason: Nausea &/or Vomiting Stop: 01/02/23 17:12 Ondansetron HCl (Ondansetron 4 Mg Od Tab) 4 mg PO Q6H PRN PRN Reason: Nausea Stop: 01/02/23 17:12 Pneumococcal Polyvalent Vaccine (Do Not Administer Pneumococcal Vaccine) 1 each N/A PRN PRN PRN Reason: Notification Stop: 01/02/23 17:12 Polyethylene Glycol (Polyethylene (Miralax) 17 Gm Pack) 17 gm PO DAILY PRN PRN Reason: Constipation Stop: 12/30/22 17:48 Potassium Chloride (Potassium Chloride 10 Meq Tabcr) 10 meq PO QAM [facility] Stop: 12/31/22 08:59 Last Admin: 12/11/22 13:08 Dose: 10 meq Ropinirole HCl (Ropinirole Hcl 1 Mg Tablet) 1 mg PO [facility] Stop: 12/30/22 20:59 Last Admin: 12/11/22 21:13 Dose: 1 mg Senna/Docusate Sodium (Docusate Sodium/Senna 50/8.6mg Tab) 2 tab PO [facility] Stop: 01/02/23 20:59 Last Admin: 12/11/22 21:13 Dose: 2 tab Sodium Biphosphate/Sodium Phosphate (Sod Phosphate/Sod Biphosphate Enema 132 Ml Btl) 132 ml OR ONE PRN PRN Reason: Constipation Stop: 01/02/23 17:12 Sodium Chloride (Sodium Chlor 7% 4 Ml Neb) 4 ml INH BIDR [facility] Stop: 12/30/22 18:59 Last Admin: 12/12/22 07:26 Dose: 4 ml Spironolactone (Spironolactone 12.5 Mg Tab) 12.5 mg PO [id number] [facility] Stop: 01/10/23 08:59 Last Admin: 12/11/22 13:35 Dose: 12.5 mg Tamsulosin HCl (Tamsulosin Hcl 0.4 Mg Cap) [facility] Stop: 12/31/22 08:59 Last Admin: 12/11/22 13:04 Dose: 0.4 mg Torsemide (Torsemide 10 Mg Tab) 40 mg PO [facility] Stop: 01/10/23 08:59 Tramadol HCl (Tramadol Hcl 50 Mg Tablet) 50 - 100 mg PO Q4H PRN PRN Reason: Moderate-Severe pain & Pre PT Stop: 01/02/23 17:12 Last Admin: 12/12/22 01:56 Dose: 100 mg
[2022-12-12] MEDS: TAMSULOSIN HCL 0.4 MG CAP PO SCH (09:57)
[2022-12-12] MEDS: dilTIAZem HCL 180 MG CAPCR PO SCH (09:57)
[2022-12-12] MEDS: CALCIUM 600MG + VIT D 400 IU TAB PO SCH (09:57)
[2022-12-12] MEDS: FLUTICASONE/VILANTEROL 200/25MCG 14 PUFFS/INHALER INH SCH (09:57)
[2022-12-12] MEDS: guaiFENesin 600 MG TABCR PO SCH ×2 (09:57→20:48)
[2022-12-12] MEDS: ESCITALOPRAM OXALATE 20 MG TAB PO SCH (09:57)
[2022-12-12] MEDS: ASPIRIN 81 MG ECTAB PO SCH (09:57)
[2022-12-12] MEDS: METOPROLOL TARTRATE 25 MG TAB PO SCH ×2 (09:57→20:50)
[2022-12-12] MEDS: POTASSIUM CHLORIDE 10 MEQ TABCR PO SCH (10:07)
[2022-12-12] MEDS: TORSEMIDE 10 MG TAB PO SCH (10:07)
--- NOTE | 2022-12-12 11:35 | Orthopedic Progress Note ---
Date of Service December 12, 2022 Assessment & Plan (1) Myelopathy concurrent with and due to spinal stenosis of thoracic region: Plan: Today we will just going to have him sit up. We will continue to work him up medically to ensure is not developing pneumonia. We will maintain thoracic drain. Admission and Anticipated Discharge Date Admission Date: December 02, 2022 Subjective Patient states his back pain is controlled but he is getting intermittent spasms sometimes into the legs. Physical Exam Physical Exam: On exam today he is sitting up at side of the bed with the assistance of physical therapy. Has reasonable plantarflexion dorsiflexion. There is limitations to his quadriceps bilaterally. He is not able to stand at this time he feels quite weak. Results & Data Vital Signs (Past 12 Hours) Vital Signs Temp Pulse Resp BP Pulse Ox O2 Del Method O2 Flow Rate 12/12/22 08:08 36.7 C 83 18 123/73 93 Nasal Cannula 3 12/12/22 07:26 88 18 93 Nasal Cannula 3 Queries Orthopedic Spine Acute Posthemorrhagic Anemia: Yes
[2022-12-12] MEDS ORDERED: VANCOMYCIN CONSULT ACTIVE PRN (16:37)
[2022-12-12] MEDS ORDERED: PIPER/TAZO 4.5g in D5W MINI-B 100 ML IV ONE (16:45)
[2022-12-12] MEDS ORDERED: VANCOMYCIN HCL 2,000 MG in SODIUM CHLORIDE 0.9% 500 ML IV ONE (16:45)
[2022-12-12 17:11] LABS: Basophils # (auto) 0.03 K/uL (0.00-0.20); Basophils % (auto) 0.2 %; Eosinophils % (auto) 2.7 %; Hematocrit (blood only) 27.3 % (42.0-52.0); Hemoglobin 8.6 g/dl (14.0-18.0); Immature Granulocytes # (auto) 0.17 K/uL (0.01-0.20); Immature Granulocytes % (auto) 1.1 %; Lymphocytes # (auto) 1.88 K/uL (1.20-3.40); Lymphocytes % (auto) 12.7 %; Mean Corpuscular Hemoglobin 30.5 pg (25.0-34.0); Mean Corpuscular Hgb Conc 31.5 g/dL (32.0-36.0); Mean Corpuscular Volume 96.8 fL (80.0-100.0); Mean Platelet Volume 10.3 fL (9.4-12.4); Monocytes # (auto) 1.18 K/uL (0.11-0.59); Monocytes % (auto) 7.9 %; Neutrophils # (auto) 11.19 K/uL (1.40-6.50); Neutrophils % (auto) 75.4 %; Platelet Count 214 K/uL (130-400); RDW Coefficient of Variation 16.2 % (11.5-14.5); RDW Standard Deviation 56.5 fL (36.4-46.3); Red Blood Count 2.82 M/uL (4.70-6.10); White Blood Count 14.85 K/ul (4.8-10.8)
--- NOTE | 2022-12-12 18:11 | CT Scan Report ---
CT chest diagnostic wo con CLINICAL HISTORY: rule out infecction TECHNIQUE: Multidetector row helical CT of the chest was performed. Coronal and sagittal reformations were obtained. Automated dose lowering techniques and/or adjustment according to patient size were u tilized for this exam. CT DOSE: 851.34 mGy.cm Comparison: Comparison is made to chest radiograph 12/09/2022 FINDINGS: Lungs and pleura: Atelectasis is seen most prominently in the bilateral lower lobes. There is a trace right pleural effusion. Heart and pericardium: Cardiomegaly is seen with biatrial enlargement. Vessels: Severe atherosclerotic changes in the aorta and coronary arteries. Mediastinum and jemal: Unremarkable. Chest wall and lower neck: Unremarkable. Abdomen: Bilateral renal cysts are seen. Bones: Degenerative changes are seen in the spine with posterior fixation hardware in the mid thoraci c spine. IMPRESSION: 1. Atelectasis is seen in the bilateral lungs. Superimposed infection cannot be entirely excluded. T here is a trace right pleural effusion. 2. Cardiomegaly. ACT 112: Negative or not required by law. Electronically signed by: Beka Merlos M.D. 12/12/2022 6:08 PM
[2022-12-12] MEDS: OLANZapine 5 MG TABLET PO SCH (20:48)
[2022-12-12] MEDS: ATORVASTATIN 20 MG TAB PO SCH (20:48)
[2022-12-12] MEDS: MAGNESIUM OXIDE 400 MG TAB PO SCH (20:48)
[2022-12-12] MEDS: DOCUSATE SODIUM/SENNA 50/8.6MG TAB PO SCH (20:48)
[2022-12-12] MEDS: rOPINIRole HCL 1 MG TABLET PO SCH (20:49)
[2022-12-12] MEDS: MIRTAZAPINE TAB 15 MG TAB PO SCH (20:49)
[2022-12-12] MEDS: PIPERACILLIN/TAZOBACTAM 4.5 GM in DEXTROSE 5% MINI-B 100 ML IV SCH (22:31)
[2022-12-13] MEDS: HYDROmorphone INJ 0.5 MG/0.5 ML SYR IV PRN ×2 (01:29→21:46)
[2022-12-13] MEDS: HYDROCODONE/ACETAMOPHEN 5/325MG TAB PO PRN (02:32)
[2022-12-13] MEDS: ACETAMINOPHEN 500 MG TAB PO SCH ×3 (06:08→23:28)
[2022-12-13] MEDS: PIPERACILLIN/TAZOBACTAM 4.5 GM in DEXTROSE 5% MINI-B 100 ML IV SCH ×3 (06:08→23:34)
[2022-12-13 06:42] LABS: Basophils # (auto) 0.02 K/uL (0.00-0.20); Basophils % (auto) 0.2 %; Eosinophils # (auto) 0.45 K/uL (0.00-0.50); Eosinophils % (auto) 3.6 %; Hemoglobin 8.5 g/dl (14.0-18.0); Immature Granulocytes # (auto) 0.17 K/uL (0.01-0.20); Immature Granulocytes % (auto) 1.4 %; Lymphocytes # (auto) 1.54 K/uL (1.20-3.40); Lymphocytes % (auto) 12.3 %; Mean Corpuscular Hgb Conc 31.5 g/dL (32.0-36.0); Mean Corpuscular Volume 95.4 fL (80.0-100.0); Mean Platelet Volume 10.6 fL (9.4-12.4); Monocytes # (auto) 1.01 K/uL (0.11-0.59); Neutrophils # (auto) 9.37 K/uL (1.40-6.50); Neutrophils % (auto) 74.5 %; Platelet Count 205 K/uL (130-400); RDW Coefficient of Variation 16.3 % (11.5-14.5); RDW Standard Deviation 55.6 fL (36.4-46.3); Red Blood Count 2.83 M/uL (4.70-6.10); White Blood Count 12.56 K/ul (4.8-10.8)
[2022-12-13] MEDS ORDERED: VANCOMYCIN HCL 1,000 MG in SODIUM CHLORIDE 0.9% 250 ML IV SCH (07:00)
[2022-12-13 07:07] LABS: BUN Creatinine Ratio 29.5 (10-20); Calcium 8.9 mg/dl (8.6-10.3); Creatinine Clr Calc Pharmacy 61.3 ml/min; Est GFR (African American) 70.5 ml/min; Est GFR (Non-African American) 60.8 ml/min; Potassium 4.3 mmol/L (3.5-5.1)
[2022-12-13] MEDS: ALBUT/IPRATROP 3MG/0.5MG NEB 3 ML VIAL NEB SCH ×2 (07:23→20:23)
[2022-12-13] MEDS: SODIUM CHLOR 7% 4 ML NEB INH SCH ×2 (07:24→20:20)
[2022-12-13] MEDS: LORazepam 0.5 MG TAB PO PRN ×2 (08:32→18:35)
--- NOTE | 2022-12-13 09:10 | Hospitalist Progress Note ---
Date of Service December 13, 2022 Assessment & Plan (1) Post-op pneumonia: Plan: CT reading reveals atelectasis vs pneumonia. Not significantly improved today from a clinical standpoint, but leukocytosis has improved. Cont current therapy. Aspiration precautions! (2) Thoracic spinal stenosis: (3) Lumbar spinal stenosis: (4) Weakness: Plan: Patient is 82-year-old male with PMH chronic atrial fibrillation chronically anticoagulated on Eliquis, tachybradycardia syndrome s/p pacemaker, HLD, chronic respiratory failure on chronic oxygen, chronic CHF preserved EF, hypothyroidism, CKD III, depression, anxiety, RLS, RUDY presented to ER with C/O progressive BLE weakness. CT head: No acute intracranial findings CT lumbar Spine: IMPRESSION:1. No acute fracture or subluxation.2. Levoscoliosis with multilevel degenerative changes of the above resulting in associated central canal and neural foraminal narrowing. Lumbar spine MRI with levoscoliosis with multilevel degenerative changes of the above resulting in associated central canal and neural foraminal narrowing. S/p lumbar decompression bilaterally facetectomies and foraminotomies L2-L3, L3- L4 and L4-5 and posterior spinal fusion L3-L4 L4-[address] Esteves on 12/03 Thoracic spine MRI ordered by spine Ortho due to ongoing weakness There is a broad-based posterior disc bulge at T11-T12 with likely severe canal stenosis, AP diameter of 3 mm, and moderate bilateral neuroforaminal stenosis. S/p decompression fusion T10-T12 by Dr. Esteves on 12/09 Activity and wound care orders as per ortho Pain control with bowel regimen PT/OT, plan for discharge to rehab Acute blood loss anemia In setting of post-of blood loss, dilutional factors Asymptomatic Hb stable and no bleeding. Continue to monitor H/H, transfuse blood products PRN (5) Chronic respiratory failure: Plan: Chronic bronchitis, bronchiectasis On chronic 2-3 L oxygen via nasal cannula Continue oxygen supplementation Continue home inhalers, nebulizers (6) Chronic atrial fibrillation: Plan: Eliquis on hold postop from initial surgery and given potential need for add'l surgery, was transitioned to full dose Lovenox on 12/07 Eliquis remains on hold now -per ortho may need to take back to the OR for I&D of post op seroma. Cont metoprolol tartrate, diltiazem (7) Acute kidney injury superimposed on CKD: Plan: resolved (8) Chronic kidney disease (CKD), stage III (moderate): Plan: Creatinine peaked to 1.7 on 12/05 -in the setting of surgery, n.p.o. status Baseline creatinine low 1s --> resolved Continue to monitor renal functions (9) Hypothyroidism: Plan: Chronic, stable Continue levothyroxine (10) Chronic heart failure with preserved ejection fraction: Plan: chronic, stable. Cont current medical therapy. (11) Tachy-noni syndrome: Plan: S/p pacemaker (12) HTN (hypertension): Plan: Continue diltiazem, metoprolol tartrate chronic, stable (13) Hyperlipidemia: Plan: Continue atorvastatin (14) Anxiety and depression: Plan: chronic, stable. Continue Lexapro (15) Restless leg syndrome: Plan: chronic, stable. 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 change from previous, per d/w radiology today) Also showing indeterminate sclerotic lesion within the right iliac wing measuring up to 3 cm. A metastatic lesion could have this appearance. Significant in setting of prostate cancer, currently receiving Lupron inj Q3M (due in Jan 2023), has f/u with Dr. Preciado 01/07 Dr. Preciado aware of results, pushed imaging for further determination of treatment, need for bone scan This was also discussed w patient and family together in the room. (17) Sleep apnea: Plan: BiPAP at bedtime DVT PROPHYLAXIS TEDs/SCDs while not receiving anticoagulation Dispo -uncertain at this time, cont hospitalization pending clinical improvement. I spent a total [id number] coordinating, documenting, and providing care for this patient excluding time spent in the performance of separately billed services Maribeth Ruvalcaba DO [facility] Admission and Anticipated Discharge Date Admission Date: December 02, 2022 Subjective 82 yo M s/p two separate back surgeries Reports his muscle spasms are improved but still come nad go He is very somnolent but able to arouse and is oriented worst issue today is that he still has pain in his back area very limited movement still, unable to stand at bedside today with PT cough and breathing and WBC have improved on the abx overnight but not a significant improvement clinically on the abx. Review of Systems Review of Systems: At least ten systems reviewed and negative except as noted in the HPI. Physical Exam Physical Exam: CONSTITUTIONAL: WNWD, vitals as above, NAD EYES: normal conjunctivae, no scleral icterus ENT: external ear and nose normal, MMM NECK: trachea midline, RESPIRATORY: slight wheezing at the left base, otherwise good airflow throughout, no crackles or rales, normal respiratory effort CARDIOVASCULAR: regular rate and rhythm, S1 and 2 heard without murmurs, gallops or rubs, no JVD, no peripheral edema CHEST: inspection of chest was normal GASTROINTESTINAL: soft, nontender, ND, no guarding MUSCULOSKELETAL: strength 5/5 throughout, head is normocephalic and atraumatic SKIN: warm and dry, back wound not visualized. NEUROLOGIC: CN 2-12 grossly intact, no sensory deficit, normal cognition, normal speech, no tremor PSYCHIATRIC: alert cooperative and oriented to person, place and time. Results & Data Results & Data Vital Signs (Past 12 Hours) Vital Signs Temp Pulse Resp BP Pulse Ox O2 Del Method O2 Flow Rate 12/13/22 08:23 36.8 C 107 H 18 162/74 H 93 Nasal Cannula 3 Laboratory Results Short CBC 12/12/22 12/13/22 Range/Units 16:51 05:51 WBC 14.85 H 12.56 H (4.8-10.8) K/ul Hgb 8.6 L 8.5 L (14.0-18.0) g/dl Hct 27.3 L 27.0 L (42.0-52.0) % Plt Count 214 205 (130-400) K/uL BMP 12/13/22 05:51 Sodium 139 Potassium 4.3 Chloride 98 Carbon Dioxide 39 H BUN 33 H Creatinine 1.12 Glucose 102 H Calcium 8.9 Medications Administered Current Inpatient Medications Acetaminophen (Acetaminophen 500 Mg Tab) 1,000 mg PO Q8 [facility] Stop: 12/30/22 21:59 Last Admin: 12/13/22 06:08 Dose: Not Given Acetaminophen (Acetaminophen 500 Mg Tab) 1,000 mg PO Q8H PRN PRN Reason: MILD Pain Scale 1,2,3 & Pre PT Stop: 01/02/23 17:12 Hydrocodone Bitart/Acetaminophen (Hydrocodone/Acetamophen 5/325mg Tab) 1 - 2 tab PO Q4H PRN PRN Reason: Pain & Pre PT Stop: 12/17/22 17:12 Last Admin: 12/13/22 02:32 Dose: 2 tab Al Hydrox/Mg Hydrox/Simethicone (Aluminum/Magnesium Susp 30 Ml Udc) 30 ml PO Q6H PRN PRN Reason: Dyspepsia Stop: 01/02/23 17:12 Albuterol (Albut/Ipratrop 3mg/0.5mg Neb 3 Ml Vial) 3 ml NEB BIDR [facility]; Protocol Stop: 12/31/22 09:44 Last Admin: 12/13/22 07:23 Dose: Not Given Albuterol (Albuterol Hfa 8 Gm Inhaler) 2 puffs INH BIDR PRN PRN Reason: Shortness Of Breath Or Wheezing Stop: 12/30/22 18:59 Aspirin (Aspirin 81 Mg Ectab) 81 mg PO [facility] Stop: 12/31/22 08:59 Last Admin: 12/12/22 09:57 Dose: 81 mg Atorvastatin Calcium (Atorvastatin 20 Mg Tab) 20 mg PO [facility] Stop: 12/30/22 20:59 Last Admin: 12/12/22 20:48 Dose: 20 mg Bisacodyl (Bisacodyl 10 Mg Supp) 10 mg ID DAILY PRN PRN Reason: Constipation Stop: 01/02/23 17:12 Last Admin: 12/10/22 12:26 Dose: 10 mg Calcium/Vitamin D (Calcium 600mg + Vit D 400 Iu Tab) 1 tab PO [facility] Stop: 12/31/22 08:59 Last Admin: 12/12/22 09:57 Dose: 1 tab Diltiazem HCl (Diltiazem Hcl 180 Mg Capcr) 180 mg PO [facility] Stop: 12/31/22 08:59 Last Admin: 12/12/22 09:57 Dose: 180 mg Diphenhydramine HCl (Diphenhydramine Capsule 25 Mg Cap) 25 mg PO Q6H PRN PRN Reason: Allergic Rhinitis/Insomnia Stop: 01/02/23 17:12 Escitalopram Oxalate (Escitalopram Oxalate 20 Mg Tab) 20 mg PO [facility] Stop: 12/31/22 08:59 Last Admin: 12/12/22 09:57 Dose: 20 mg Famotidine (Famotidine 20 Mg Tab) 20 mg PO Q12H PRN PRN Reason: Dyspepsia Stop: 01/02/23 17:12 Fluticasone/Vilanterol (Fluticasone/Vilanterol 200/25mcg 14 Puffs/Inhaler) 1 puffs INH DAILY [facility] Stop: 12/31/22 08:59 Last Admin: 12/12/22 09:57 Dose: 1 puffs Guaifenesin (Guaifenesin 600 Mg Tabcr) 600 mg PO BID [facility] Stop: 12/30/22 20:59 Last Admin: 12/12/22 20:48 Dose: 600 mg Hydromorphone HCl (Hydromorphone Inj 0.5 Mg/0.5 Ml Syr) 0.5 mg IV Q3H PRN PRN Reason: MODERATE Pain (Scale 4,5,6) & Pre PT Stop: 12/17/22 17:12 Last Admin: 12/13/22 01:29 EDT Dose: 0.5 mg Hydromorphone HCl (Hydromorphone Inj 1 Mg/Ml Syringe) 1 mg IV Q3H PRN PRN Reason: SEVERE Pain (Scale 7,8,9,10) Stop: 12/17/22 17:12 Last Admin: 12/09/22 16:25 Dose: 0.25 mg Hydroxyzine HCl (Hydroxyzine Hcl 25 Mg Tab) 25 mg PO Q8H PRN PRN Reason: Anxiety Stop: 01/02/23 17:12 Piperacillin Sod/Tazobactam (Sod 4.5 gm/ Dextrose) 100 mls @ 25 mls/hr IV Q8H [facility]; Protocol Stop: 12/19/22 21:59 Last Admin: 12/13/22 06:08 Dose: 25 mls/hr Vancomycin HCl 1,000 mg/ (Sodium Chloride) 270 mls @ 200 mls/hr IV Q12H [facility] Stop: 12/20/22 06:59 Last Admin: 12/13/22 08:05 Dose: 200 mls/hr Cefepime HCl 2,000 mg/ Syringe 20 mls @ 5 mls/min IV Q8H [facility]; Protocol Stop: 12/20/22 09:09 Influenza Virus Vaccine Quadrival (Do Not Administer Flu Vaccine) 1 each N/A PRN PRN PRN Reason: Notification Stop: 01/02/23 17:12 Lorazepam (Lorazepam 0.5 Mg Tab) 0.5 mg PO Q8H PRN PRN Reason: Sedation/Anxiety Stop: 01/02/23 17:12 Last Admin: 12/13/22 08:32 Dose: 0.5 mg Magnesium Hydroxide (Magnesium Hydroxide Susp 30 Ml Udc) 30 ml PO Q24H PRN PRN Reason: Constipation Stop: 01/02/23 17:12 Magnesium Oxide (Magnesium Oxide 400 Mg Tab) 400 mg PO HS [facility] Stop: 12/30/22 20:59 Last Admin: 12/12/22 20:48 Dose: 400 mg Metoclopramide HCl (Metoclopramide Hcl Inj 5 Mg/Ml 2 Ml Vial) 10 mg IV Q6H PRN PRN Reason: Nausea &/or Vomiting Stop: 01/02/23 17:12 Metoprolol Tartrate (Metoprolol Tartrate 25 Mg Tab) 25 mg PO BID [facility] Stop: 12/30/22 20:59 Last Admin: 12/12/22 20:50 Dose: 25 mg Mirtazapine (Mirtazapine Tab 15 Mg Tab) 30 mg PO HS [facility] Stop: 12/30/22 20:59 Last Admin: 12/12/22 20:49 Dose: 30 mg Miscellaneous Information (Vancomycin Consult Active) 1 each N/A UD PRN PRN Reason: Consult Stop: 01/11/23 16:36 Naloxone HCl (Naloxone Hcl 0.4 Mg/1 Ml Vial/Carp) 0.1 mg IV Q5M PRN PRN Reason: Oversedation/Resp depression Stop: 01/02/23 17:12 Olanzapine (Olanzapine 5 Mg Tablet) 5 mg PO HS [facility] Stop: 12/30/22 20:59 Last Admin: 12/12/22 20:48 Dose: 5 mg Ondansetron HCl (Ondansetron Inj 2 Mg/Ml 2 Ml Vial) 4 mg IV Q6H PRN PRN Reason: Nausea &/or Vomiting Stop: 01/02/23 17:12 Ondansetron HCl (Ondansetron 4 Mg Od Tab) 4 mg PO Q6H PRN PRN Reason: Nausea Stop: 01/02/23 17:12 Pneumococcal Polyvalent Vaccine (Do Not Administer Pneumococcal Vaccine) 1 each N/A PRN PRN PRN Reason: Notification Stop: 01/02/23 17:12 Polyethylene Glycol (Polyethylene (Miralax) 17 Gm Pack) 17 gm PO DAILY PRN PRN Reason: Constipation Stop: 12/30/22 17:48 Potassium Chloride (Potassium Chloride 10 Meq Tabcr) [facility] [place]: 12/31/22 08:59 Last Admin: 12/12/22 10:07 Dose: 10 meq Ropinirole HCl (Ropinirole Hcl 1 Mg Tablet) 1 mg PO HS [facility] Stop: 12/30/22 20:59 Last Admin: 12/12/22 20:49 Dose: 1 mg Senna/Docusate Sodium (Docusate Sodium/Senna 50/8.6mg Tab) 2 tab PO HS [facility] Stop: 01/02/23 20:59 Last Admin: 12/12/22 20:48 Dose: 2 tab Sodium Biphosphate/Sodium Phosphate (Sod Phosphate/Sod Biphosphate Enema 132 Ml Btl) 132 ml ID ONE PRN PRN Reason: Constipation Stop: 01/02/23 17:12 Sodium Chloride (Sodium Chlor 7% 4 Ml Neb) 4 ml INH BIDR [facility] Stop: 12/30/22 18:59 Last Admin: 12/13/22 07:24 Dose: Not Given Spironolactone (Spironolactone 12.5 Mg Tab) 12.5 mg PO [id number] [facility] Stop: 01/10/23 08:59 Last Admin: 12/11/22 13:35 Dose: 12.5 mg Tamsulosin HCl (Tamsulosin Hcl 0.4 Mg Cap) [facility] Stop: 12/31/22 08:59 Last Admin: 12/12/22 09:57 Dose: 0.4 mg Torsemide (Torsemide 10 Mg Tab) [facility] Stop: 01/10/23 08:59 Last Admin: 12/12/22 10:07 Dose: 40 mg Tramadol HCl (Tramadol Hcl 50 Mg Tablet) 50 - 100 mg PO Q4H PRN PRN Reason: Moderate-Severe pain & Pre PT Stop: 01/02/23 17:12 Last Admin: 12/12/22 22:30 Dose: 100 mg
[2022-12-13] MEDS: traMADol HCL 50 MG TABLET PO PRN (09:33)
[2022-12-13] MEDS: CALCIUM 600MG + VIT D 400 IU TAB PO SCH (09:35)
[2022-12-13] MEDS: POTASSIUM CHLORIDE 10 MEQ TABCR PO SCH (09:35)
[2022-12-13] MEDS: FLUTICASONE/VILANTEROL 200/25MCG 14 PUFFS/INHALER INH SCH (09:36)
[2022-12-13] MEDS: dilTIAZem HCL 180 MG CAPCR PO SCH (09:36)
[2022-12-13] MEDS: guaiFENesin 600 MG TABCR PO SCH (09:36)
[2022-12-13] MEDS: ESCITALOPRAM OXALATE 20 MG TAB PO SCH (09:36)
[2022-12-13] MEDS: ASPIRIN 81 MG ECTAB PO SCH (09:36)
[2022-12-13] MEDS: TORSEMIDE 10 MG TAB PO SCH (09:36)
[2022-12-13] MEDS: TAMSULOSIN HCL 0.4 MG CAP PO SCH (09:36)
[2022-12-13] MEDS: METOPROLOL TARTRATE 25 MG TAB PO SCH ×3 (09:36→23:34)
--- NOTE | 2022-12-13 10:13 | Pharmacy Report ---
Pharmacy PK ABX Note - Date of Service December 13, 2022 - Assessment and Plan Assessment 82 year old M receiving vancomycin and zosyn for treatment of pulmonary infection. MRSA nasal (+), blood cultures pending. Renal function stable. Day #2 of antimicrobial therapy. Plan Vancomycin * Loading dose: 2000 mg IV x 1 * Maintenance dose: 1gm X 1 this AM then 1500mg IV q24h * Regimen is predicted to achieve target AUC/JIM of 400-600 mg/L.hr * Will obtain a level around steady state Pharmacy will continue to follow and will adjust dose/frequency as necessary. Thank you. Pharmacy has transitioned to AUC monitoring for vancomycin. AUC/JIM is the preferred PK/PD target and is associated with decreased risk of nephrotoxicity compared to traditional trough targets.
--- NOTE | 2022-12-13 11:26 | Orthopedic Progress Note ---
Date of Service December 13, 2022 Assessment & Plan (1) Myelopathy concurrent with and due to spinal stenosis of thoracic region: Plan: He is being treated for pneumonia. I am concerned he is developing a lumbar hematoma contributing to the leg pain. He would require potential I&D. We will allow the antibiotics to work for a day or so before considering return to the OR. Admission and Anticipated Discharge Date Admission Date: December 02, 2022 Subjective Patient is comfortable in bed while lying supine. Unfortunately trying to sit up and any attempted ambulation creates bilateral leg pain. Physical Exam Physical Exam: On exam is currently in bed. He is plantarflexion dorsiflexion intact. Results & Data Vital Signs (Past 12 Hours) Vital Signs Temp Pulse Resp BP Pulse Ox O2 Del Method O2 Flow Rate 12/13/22 08:23 36.8 C 107 H 18 162/74 H 93 Nasal Cannula 3 Queries Orthopedic Spine Acute Posthemorrhagic Anemia: Yes
[2022-12-13] MEDS: CEFEPIME 2,000 MG in SYRINGE 0 ML IV SCH ×2 (11:39→18:44)
[2022-12-13] MEDS ORDERED: GLUCAGON 1 MG in SYRINGE 0 ML IV STA (18:21)
[2022-12-13] MEDS ORDERED: GLUCAGON FOR INJ 1 MG VIAL ONE (18:23)
--- NOTE | 2022-12-13 18:57 | Communication Note ---
Date of Service: December 13, 2022 CODE PURPLE: patient ate roast beef for dinner this evening and appears to have had a retained food bolus causing mid sternal discomfort and vomiting. He was able to get some of the food particles out with vomiting. Tried to drink water without success. Vitals are stable, oxygenating well on baseline 3LPM via nasal canula and not working to breathe. He is speaking in full sentences and is oriented. Bed has been adjusted and he is sitting very tall in the bed for appropriate aspiration precautions. Cardiac and pulmonary exam was unchanged from earlier today. Skin was warm and dry. Administered glucagon 1mg IV followed by Atkenny DIXON. He was able to vomit up more of the food. With this and the medication his pain completely resolved within 30 minutes. CXR portable reveals no new changes specifically no evidence of aspiration pneumonia, and appears improved per my wet read from the prior CXR on 12/09. GI was contacted regarding routine consultation in am. Diet changed to soft foods, added IV PPI BID. Will also consult speech pathology for evaluation. Minimize excessive PO medications. DO Jordon
[2022-12-13] MEDS ORDERED: SODIUM CHLORIDE 0.9% 1,000 ML IV ONE (19:30)
[2022-12-13 19:49] LABS: Magnesium 2.2 mg/dl (1.7-2.4)
--- NOTE | 2022-12-13 20:09 | XRay Report ---
XR chest 1V portable CLINICAL HISTORY: acute chest discomfort. TECHNIQUE: Single frontal radiograph of the chest was obtained. Comparison: Comparison is made to chest radiograph 12/09/2022 FINDINGS: Lines and tubes are stable. Calcified aortic knob is seen. Lungs are underinflated but clear. No evid ence of pleural effusion or pneumothorax. IMPRESSION: No acute chest disease. ACT 112: Negative or not required by law. Electronically signed by: Beka Merlos M.D. 12/13/2022 8:08 PM
[2022-12-13] MEDS: LEVALBUTEROL 1.25 MG/3 ML NEB NEB SCH (20:20)
[2022-12-13] MEDS: VANCOMYCIN HCL 1,500 MG in SODIUM CHLORIDE 0.9% 500 ML IV SCH (20:25)
[2022-12-13] MEDS ORDERED: XOPENEX/ATROVENT 1.25mg/0.5MG NEB COMBO NEB SCH (21:00)
[2022-12-13] MEDS: PANTOprazole 40 MG in SYRINGE 0 ML IV SCH (21:45)
[2022-12-13] MEDS: DOCUSATE SODIUM/SENNA 50/8.6MG TAB PO SCH (22:04)
[2022-12-13] MEDS: MIRTAZAPINE TAB 15 MG TAB PO SCH (22:05)
[2022-12-13] MEDS: MAGNESIUM OXIDE 400 MG TAB PO SCH (22:05)
[2022-12-13] MEDS: OLANZapine 5 MG TABLET PO SCH (22:06)
[2022-12-13] MEDS: rOPINIRole HCL 1 MG TABLET PO SCH (22:06)
[2022-12-14] MEDS: CEFEPIME 2,000 MG in SYRINGE 0 ML IV SCH ×3 (02:33→17:29)
[2022-12-14] MEDS: HYDROmorphone INJ 0.5 MG/0.5 ML SYR IV PRN (06:10)
[2022-12-14] MEDS: PIPERACILLIN/TAZOBACTAM 4.5 GM in DEXTROSE 5% MINI-B 100 ML IV SCH (06:12)
[2022-12-14] MEDS: ACETAMINOPHEN 500 MG TAB PO SCH (06:13)
[2022-12-14] MEDS: SODIUM CHLOR 7% 4 ML NEB INH SCH ×2 (07:41→19:46)
[2022-12-14] MEDS: LEVALBUTEROL 1.25 MG/3 ML NEB NEB SCH ×2 (07:41→19:46)
[2022-12-14] MEDS: IPRATROPIUM BROMIDE NEB SOLN 0.02% 2.5 ML VIAL INH SCH ×2 (07:41→19:46)
[2022-12-14 07:59] LABS: Hemoglobin 8.9 g/dl (14.0-18.0); Mean Corpuscular Hemoglobin 29.9 pg (25.0-34.0); Mean Corpuscular Hgb Conc 31.8 g/dL (32.0-36.0); Mean Platelet Volume 10.4 fL (9.4-12.4); Platelet Count 234 K/uL (130-400); RDW Coefficient of Variation 16.5 % (11.5-14.5); RDW Standard Deviation 55.7 fL (36.4-46.3); Red Blood Count 2.98 M/uL (4.70-6.10); White Blood Count 13.53 K/ul (4.8-10.8)
[2022-12-14] MEDS: HYDROCODONE/ACETAMOPHEN 5/325MG TAB PO PRN ×2 (08:16→15:16)
[2022-12-14] MEDS: ASPIRIN 81 MG ECTAB PO SCH (08:20)
[2022-12-14] MEDS: ESCITALOPRAM OXALATE 20 MG TAB PO SCH (08:21)
[2022-12-14] MEDS: dilTIAZem HCL 180 MG CAPCR PO SCH (08:21)
[2022-12-14] MEDS: FLUTICASONE/VILANTEROL 200/25MCG 14 PUFFS/INHALER INH SCH (08:22)
[2022-12-14] MEDS: SPIRONOLACTONE 12.5 MG TAB PO SCH (08:22)
[2022-12-14] MEDS: TAMSULOSIN HCL 0.4 MG CAP PO SCH (08:23)
[2022-12-14] MEDS: METOPROLOL TARTRATE 25 MG TAB PO SCH ×2 (08:23→20:27)
[2022-12-14] MEDS: TORSEMIDE 10 MG TAB PO SCH (08:23)
[2022-12-14 08:26] LABS: BUN Creatinine Ratio 23.4 (10-20); Calcium 9.1 mg/dl (8.6-10.3); Creatinine Clr Calc Pharmacy 61.4 ml/min; Est GFR (African American) 71.3 ml/min; Est GFR (Non-African American) 61.5 ml/min; Phosphorus 3.3 mg/dl (2.5-4.9); Potassium 3.8 mmol/L (3.5-5.1)
--- NOTE | 2022-12-14 09:53 | Hospitalist Progress Note ---
Date of Service December 14, 2022 Assessment & Plan (1) Post-op pneumonia: Plan: CT reading reveals atelectasis vs pneumonia. Not significantly improved today from a clinical standpoint, but leukocytosis has improved. Cont current therapy. Aspiration precautions! (2) Dysphagia: Plan: ongoing dysphagia, plan for EGD in am, speech consulted. (3) Food impaction of esophagus: Plan: s/p glucagon and patient was able to vomit it out with resolution of symptoms. EGD per GI. Cont PPI (4) Thoracic spinal stenosis: (5) Lumbar spinal stenosis: (6) Weakness: Plan: Patient is 82-year-old male with PMH chronic atrial fibrillation chronically anticoagulated on Eliquis, tachybradycardia syndrome s/p pacemaker, HLD, chronic respiratory failure on chronic oxygen, chronic CHF preserved EF, hypothyroidism, CKD III, depression, anxiety, RLS, RUDY presented to ER with C/O progressive BLE weakness. CT head: No acute intracranial findings CT lumbar Spine: IMPRESSION:1. No acute fracture or subluxation.2. Levoscoliosis with multilevel degenerative changes of the above resulting in associated central canal and neural foraminal narrowing. Lumbar spine MRI with levoscoliosis with multilevel degenerative changes of the above resulting in associated central canal and neural foraminal narrowing. S/p lumbar decompression bilaterally facetectomies and foraminotomies L2-L3, L3- L4 and L4-5 and posterior spinal fusion L3-L4 L4-[address] Esteves on 12/03 Thoracic spine MRI ordered by spine Ortho due to ongoing weakness There is a broad-based posterior disc bulge at T11-T12 with likely severe canal stenosis, AP diameter of 3 mm, and moderate bilateral neuroforaminal stenosis. S/p decompression fusion T10-T12 by Dr. Esteves on 12/09 Activity and wound care orders as per ortho Pain control with bowel regimen PT/OT, plan for discharge to rehab Acute blood loss anemia In setting of post-of blood loss, dilutional factors Asymptomatic Hb stable and no bleeding. Continue to monitor H/H, transfuse blood products PRN, currently stable (7) Chronic respiratory failure: Plan: Chronic bronchitis, bronchiectasis On chronic 2-3 L oxygen via nasal cannula Continue oxygen supplementation Continue home inhalers, nebulizers (8) Chronic atrial fibrillation: Plan: Eliquis on hold postop from initial surgery and given potential need for add'l surgery, was transitioned to full dose Lovenox on 12/07 Eliquis remains on hold now -per ortho may need to take back to the OR for I&D of post op seroma. Cont metoprolol tartrate, diltiazem (9) Acute kidney injury superimposed on CKD: Plan: resolved (10) Chronic kidney disease (CKD), stage III (moderate): Plan: Creatinine peaked to 1.7 on 12/05 -in the setting of surgery, n.p.o. status Baseline creatinine low 1s --> resolved Continue to monitor renal functions (11) Hypothyroidism: Plan: Chronic, stable Continue levothyroxine (12) Chronic heart failure with preserved ejection fraction: Plan: chronic, stable. Cont current medical therapy. 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 Continue Lexapro (17) Restless leg syndrome: Plan: chronic, stable. 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 change from previous, per d/w radiology today) Also showing indeterminate sclerotic lesion within the right iliac wing measuring up to 3 cm. A metastatic lesion could have this appearance. Significant in setting of prostate cancer, currently receiving Lupron inj Q3M (due in Jan 2023), has f/u with Dr. Preciado 01/07 Dr. Preciado aware of results, pushed imaging for further determination of treatment, need for bone scan This was also discussed w patient and family together in the room. (19) Sleep apnea: Plan: BiPAP at bedtime DVT PROPHYLAXIS TEDs/SCDs while not receiving anticoagulation Dispo -uncertain at this time, cont hospitalization pending clinical improvement. I spent a total [id number] coordinating, documenting, and providing care for this patient excluding time spent in the performance of separately billed services Maribeth Ruvalcaba DO [facility] Hospitalist Admission and Anticipated Discharge Date Admission Date: December 02, 2022 Subjective 82 yo M s/p two separate back surgeries Transition to PCU after tachycardia was persistent overnight and poor/slow postoperative recovery Patient denies back pain that is overwhelming but reports spasms in his buttocks and limbs that are improved with repositioning Offered a muscle relaxant however repositioning seems to be working at this time I discussed the case with Dr. Esteves who may like to take him back to the OR in 2 to 3 days for washout of a possible hematoma Patient is too weak to stand at this point and was unable to undergo barium swallow and work-up for his dysphagia after a code purple for an impacted food bolus overnight Plan is for EGD in a.m. I did contact his by phone and updated her on all the plans and findings She did remind me that he has a mental health disorder and feels he may start to be becoming pessimistic Patient requires assistance with feedings Physical Exam Physical Exam: CONSTITUTIONAL: WNWD, vitals as above, NAD EYES: normal conjunctivae, no scleral icterus ENT: external ear and nose normal, MMM NECK: trachea midline, RESPIRATORY: clear to auscultation,no wheezing, crackles or rales, normal respiratory effort CARDIOVASCULAR: regular rate and rhythm, S1 and 2 heard without murmurs, gallops or rubs, no JVD, no peripheral edema CHEST: inspection of chest was normal GASTROINTESTINAL: soft, nontender, ND, no guarding MUSCULOSKELETAL: strength 5/5 throughout, head is normocephalic and atraumatic SKIN: warm and dry, back wound not visualized. NEUROLOGIC: CN 2-12 grossly intact, no sensory deficit, normal cognition, normal speech, no tremor PSYCHIATRIC: alert cooperative and oriented to person, place and time. Results & Data Results & Data Vital Signs (Past 12 Hours) Vital Signs Temp Pulse Pulse Resp BP BP Pulse Ox 12/14/22 08:43 12/14/22 08:00 36.7 C 100 H 18 119/76 94 12/14/22 07:41 95 H 18 94 12/13/22 23:31 94 H 103/64 O2 Del Method O2 Flow Rate 12/14/22 08:43 Nasal Cannula 4 12/14/22 08:00 Nasal Cannula 4 12/14/22 07:41 Nasal Cannula 4 12/13/22 23:31 Laboratory Results Short CBC 12/14/22 Range/Units 07:09 WBC 13.53 H (4.8-10.8) K/ul Hgb 8.9 L (14.0-18.0) g/dl Hct 28.0 L (42.0-52.0) % Plt Count 234 (130-400) K/uL BMP 12/14/22 07:09 Sodium 143 Potassium 3.8 Chloride 103 Carbon Dioxide 34 H BUN 26 H Creatinine 1.11 Glucose 103 H Calcium 9.1 Medications Administered Current Inpatient Medications Acetaminophen (Acetaminophen 500 Mg Tab) 1,000 mg PO Q8H PRN PRN Reason: MILD Pain Scale 1,2,3 & Pre PT Stop: 01/02/23 17:12 Hydrocodone Bitart/Acetaminophen (Hydrocodone/Acetamophen 5/325mg Tab) 1 tab PO Q4H PRN PRN Reason: Pain & Pre PT Stop: 12/17/22 17:12 Last Admin: 12/14/22 08:16 Dose: 1 tab Al Hydrox/Mg Hydrox/Simethicone (Aluminum/Magnesium Susp 30 Ml Udc) 30 ml PO Q6H PRN PRN Reason: Dyspepsia Stop: 01/02/23 17:12 Aspirin (Aspirin 81 Mg Ectab) 81 mg PO [facility] Stop: 12/31/22 08:59 Last Admin: 12/14/22 08:20 Dose: 81 mg Atorvastatin Calcium (Atorvastatin 20 Mg Tab) [address] [facility] Stop: 12/30/22 20:59 Last Admin: 12/12/22 20:48 Dose: 20 mg Bisacodyl (Bisacodyl 10 Mg Supp) 10 mg [place] DAILY PRN PRN Reason: Constipation Stop: 01/02/23 17:12 Last Admin: 12/10/22 12:26 Dose: 10 mg Calcium/Vitamin D (Calcium 600mg + Vit D 400 Iu Tab) 1 tab PO [facility] Stop: 12/31/22 08:59 Last Admin: 12/13/22 09:35 Dose: 1 tab Diltiazem HCl (Diltiazem Hcl 180 Mg Capcr) 180 mg PO [facility] Stop: 12/31/22 08:59 Last Admin: 12/14/22 08:21 Dose: 180 mg Diphenhydramine HCl (Diphenhydramine Capsule 25 Mg Cap) 25 mg PO Q6H PRN PRN Reason: Allergic Rhinitis/Insomnia Stop: 01/02/23 17:12 Escitalopram Oxalate (Escitalopram Oxalate 20 Mg Tab) 20 mg PO [facility] Stop: 12/31/22 08:59 Last Admin: 12/14/22 08:21 Dose: 20 mg Famotidine (Famotidine 20 Mg Tab) 20 mg PO Q12H PRN PRN Reason: Dyspepsia Stop: 01/02/23 17:12 Fluticasone/Vilanterol (Fluticasone/Vilanterol 200/25mcg 14 Puffs/Inhaler) 1 puffs INH DAILY [facility] Stop: 12/31/22 08:59 Last Admin: 12/14/22 08:22 Dose: 1 puffs Guaifenesin (Guaifenesin 600 Mg Tabcr) 600 mg PO BID [facility] Stop: 12/30/22 20:59 Last Admin: 12/13/22 09:36 Dose: 600 mg Hydromorphone HCl (Hydromorphone Inj 0.5 Mg/0.5 Ml Syr) 0.5 mg IV Q3H PRN PRN Reason: MODERATE Pain (Scale 4,5,6) & Pre PT Stop: 12/17/22 17:12 Last Admin: 12/14/22 06:10 Dose: 0.5 mg Hydromorphone HCl (Hydromorphone Inj 1 Mg/Ml Syringe) 1 mg IV Q3H PRN PRN Reason: SEVERE Pain (Scale 7,8,9,10) Stop: 12/17/22 17:12 Last Admin: 12/09/22 16:25 Dose: 0.25 mg Hydroxyzine HCl (Hydroxyzine Hcl 25 Mg Tab) 25 mg PO Q8H PRN PRN Reason: Anxiety Stop: 01/02/23 17:12 Cefepime HCl 2,000 mg/ Syringe 20 mls @ 5 mls/min IV Q8H [facility]; Protocol Stop: 12/20/22 09:59 Last Admin: 12/14/22 02:33 Dose: 5 mls/min Vancomycin HCl 1,500 mg/ (Sodium Chloride) 530 mls @ 200 mls/hr IV Q24H [facility] Stop: 12/20/22 19:59 Last Infusion: 12/13/22 23:34 Dose: Infused Pantoprazole Sodium 40 mg/ (Syringe) 10 mls @ 5 mls/min IV BID [facility] Stop: 01/12/23 20:59 Last Admin: 12/13/22 21:45 Dose: 5 mls/min Sodium Chloride (Nss) 1,000 mls @ 50 mls/hr IV .Q20H [facility] Stop: 12/14/22 15:29 Last Admin: 12/13/22 20:25 Dose: 50 mls/hr Influenza Virus Vaccine Quadrival (Do Not Administer Flu Vaccine) 1 each N/A PRN PRN PRN Reason: Notification Stop: 01/02/23 17:12 Ipratropium [place] (Ipratropium [place] Neb Soln 0.02% 2.5 Ml Vial) 0.5 mg INH BIDR [facility] Stop: 01/13/23 19:44 Last Admin: 12/14/22 07:41 Dose: 0.5 mg Levalbuterol HCl (Levalbuterol 1.25 Mg/3 Ml Neb) 1.25 mg NEB BIDR [facility] Stop: 01/12/23 19:44 Last Admin: 12/14/22 07:41 Dose: 1.25 mg Lorazepam (Lorazepam 0.5 Mg Tab) 0.5 mg PO Q8H PRN PRN Reason: Sedation/Anxiety Stop: 01/02/23 17:12 Last Admin: 12/13/22 18:35 Dose: 0.5 mg Magnesium Hydroxide (Magnesium Hydroxide Susp 30 Ml Udc) 30 ml PO Q24H PRN PRN Reason: Constipation Stop: 01/02/23 17:12 Magnesium Oxide (Magnesium Oxide 400 Mg Tab) 400 mg PO HS [facility] Stop: 12/30/22 20:59 Last Admin: 12/13/22 22:05 Dose: Not Given Metoclopramide HCl (Metoclopramide Hcl Inj 5 Mg/Ml 2 Ml Vial) 10 mg IV Q6H PRN PRN Reason: Nausea &/or Vomiting Stop: 01/02/23 17:12 Metoprolol Tartrate (Metoprolol Tartrate 25 Mg Tab) 25 mg PO BID [facility] Stop: 12/30/22 20:59 Last Admin: 12/14/22 08:23 Dose: 25 mg Mirtazapine (Mirtazapine Tab 15 Mg Tab) 30 mg PO HS [facility] Stop: 12/30/22 20:59 Last Admin: 12/13/22 22:05 Dose: Not Given Miscellaneous Information (Vancomycin Consult Active) 1 each N/A UD PRN PRN Reason: Consult Stop: 01/11/23 16:36 Naloxone HCl (Naloxone Hcl 0.4 Mg/1 Ml Vial/Carp) 0.1 mg IV Q5M PRN PRN Reason: Oversedation/Resp depression Stop: 01/02/23 17:12 Olanzapine (Olanzapine 5 Mg Tablet) [address] [facility] Stop: 12/30/22 20:59 Last Admin: 12/13/22 22:06 Dose: Not Given Ondansetron HCl (Ondansetron Inj 2 Mg/Ml 2 Ml Vial) 4 mg IV Q6H PRN PRN Reason: Nausea &/or Vomiting Stop: 01/02/23 17:12 Ondansetron HCl (Ondansetron 4 Mg Od Tab) 4 mg PO Q6H PRN PRN Reason: Nausea Stop: 01/02/23 17:12 Pneumococcal Polyvalent Vaccine (Do Not Administer Pneumococcal Vaccine) 1 each N/A PRN PRN PRN Reason: Notification Stop: 01/02/23 17:12 Polyethylene Glycol (Polyethylene (Miralax) 17 Gm Pack) 17 gm PO DAILY PRN PRN Reason: Constipation Stop: 12/30/22 17:48 Potassium Chloride (Potassium Chloride 10 Meq Tabcr) 10 meq PO QAM [facility] Stop: 12/31/22 08:59 Last Admin: 12/13/22 09:35 Dose: 10 meq Ropinirole HCl (Ropinirole Hcl 1 Mg Tablet) [address] [facility] Stop: 12/30/22 20:59 Last Admin: 12/13/22 22:06 Dose: Not Given Senna/Docusate Sodium (Docusate Sodium/Senna 50/8.6mg Tab) [address] [facility] Stop: 01/02/23 20:59 Last Admin: 12/13/22 22:04 Dose: Not Given Sodium Biphosphate/Sodium Phosphate (Sod Phosphate/Sod Biphosphate Enema 132 Ml Btl) 132 ml WI ONE PRN PRN Reason: Constipation Stop: 01/02/23 17:12 Sodium Chloride (Sodium Chlor 7% 4 Ml Neb) 4 ml INH BIDR [facility] Stop: 12/30/22 18:59 Last Admin: 12/14/22 07:41 Dose: 4 ml Spironolactone (Spironolactone 12.5 Mg Tab) 12.5 mg PO [id number] [facility] Stop: 01/10/23 08:59 Last Admin: 12/14/22 08:22 Dose: 12.5 mg Tamsulosin HCl (Tamsulosin Hcl 0.4 Mg Cap) [facility] [place] Stop: 12/31/22 08:59 Last Admin: 12/14/22 08:23 Dose: 0.4 mg Torsemide (Torsemide 10 Mg Tab) 40 [facility] [place] Stop: 01/10/23 08:59 Last Admin: 12/14/22 08:23 Dose: 40 mg Tramadol HCl (Tramadol Hcl 50 Mg Tablet) 50 - 100 mg PO Q4H PRN PRN Reason: Moderate-Severe pain & Pre PT Stop: 01/02/23 17:12 Last Admin: 12/13/22 09:33 Dose: 100 mg
--- NOTE | 2022-12-14 09:56 | Gastrointestinal Consultation ---
Date of Consultation December 14, 2022 Assessment & Plan (1) Thoracic spinal stenosis: (2) Myelopathy concurrent with and due to spinal stenosis of thoracic region: (3) Chronic respiratory failure: (4) Dysphagia: Plan 82 y/o male with multiple co-morbidities, s/p lumbar decompression and fusion, we are consulted for episode dysphagia that happened over the weekend; and pt describes chronic intermittent dysphagia at baseline. Currently resting in bed, able to tolerate his secretions as well as PO liquids and pills w/o difficulty. No clinical signs/symptoms of acute food impaction. - Consideration was given to barium swallow however pt unable to stand for the test. - Clear liquid diet today as tolerated - Aspiration precautions - NPO after midnight - Will plan EGD tomorrow to evaluate his c/o dysphagia - GREEN MARKETING ANALYST consult as ordered Prior to endoscopic evaluation, we appreciate assistance in the management and correction of [facility] laboratory elements including the following: Please optimize pt's hemoglobin >7, INR <2, platelets >50,000, potassium levels >3.5 but <5.3, and sodium levels within 5 points of the reference range. Supervising Physician Co-Signing Physician Notes I performed a history and physical examination of the patient today, including specifically on physical exam - soft abdomen. I have discussed the patient's management with the advanced practitioner. Please refer to the nurse practitioner's note for the documented findings and plan of care. EGD tomorrow. History of Present Illness Reason for Consultation: food bolus, resolved with meds/emesis, dysphagia Requesting Physician: Dr. Ruvalcaba Attending Physician: Maribeth Ruvalcaba, DO History of Present Illness This is an 82 y/o male with PMHx chronic atrial fibrillation chronically anticoagulated on Eliquis, tachybradycardia syndrome s/p pacemaker, HLD, chronic respiratory failure on chronic oxygen, chronic CHF preserved EF, hypothyroidism, CKD III, depression, anxiety, RLS, RUDY, S/p lumbar decompression bilaterally facetectomies and foraminotomies L2-L3, L3-L4 and L4-5 and posterior spinal fusion L3-L4 L4-[address] Esteves on 12/03. We are consulted as the pt was eating roast beef and brussels sprouts last evening and had an episode where he felt his food get stuck and couldn't get his food down and regurgitated it. Since then pt has been tolerating sips/chips of ice and water intake with his pills. Denies any dysphagia currently. Imaging during admission has suggested chronic aspiration pneumonia. GREEN MARKETING ANALYST has been consulted; pending. Doesn't feel like he has anything retained in his esophagus currently, denies globus sensation. Tolerating his secretions. No liquid dysphagia, odynophagia, nausea, vomiting, heartburn, abd pain, melena, hematochezia. He tells me he has had chronic intermittent solid food dysphagia for a few years; has never had this evaluated. Denies having a barium swallow or EGD in the past however had EGD/EUS several years ago for pancreatic cysts. EUS 01/2020: - Multiple cysts were seen in the pancreatic head, pancreatic body, pancreatic tail, uncinate process of the pancreas and pancreatic neck. Fine needle aspiration for fluid performed from the largest cyst. - There was no sign of significant pathology in the ampulla. - There was no sign of significant pathology in the common bile duct. - There was no evidence of significant pathology in the visualized portion of the liver. A. Pancreas cyst, fine needle aspiration: Category: Neoplasm Final Interpretation: Small clusters of bland gastric type epithelium with thin mucus and macrophages, see comment Cellblock: The cellblock preparation shows similar findings. Comment: No high-grade dysplasia is identified. 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 Immunostains were attempted and no sufficient tissue is present in the deeper levels. Clinical/radiologic correlation is recommended. EGD 07/2019 - Z-line regular, 41 cm from the incisors. - Normal esophagus. - Normal stomach. - Normal duodenal bulb and second portion of the duodenum. EUS 07/2019: - There was no sign of significant pathology in the ampulla. - There was no sign of significant pathology in the common bile duct. - There was no sign of significant pathology in the gallbladder. - There was no evidence of significant pathology in the visualized portion of the liver. - Endosonographic images of the left adrenal gland were unremarkable. - The celiac trunk was endosonographically normal. - A cyst was seen in the pancreatic head measuring 10 mm. Col Fine needle aspiration for fluid performed. - A cyst was seen in the pancreatic neck measuring 22 mm. Fine needle aspiration for fluid performed. - A cyst was seen in the pancreatic neck measuring 10 mm with 3.4 mm mural nodule. Fine needle aspiration for fluid performed. - A cyst was seen in the pancreatic body measuring 10 mm. Fine needle aspiration for fluid performed. - Multiple cystic lesions were seen in the pancreatic head, pancreatic body and pancreatic neck with no worrisome features. - Pancreatic parenchymal abnormalities consisting of hyperechoic strands and foci were noted in the pancreatic head. . Pancreas neck cyst # 1, fine needle aspiration: Category: Non-diagnostic. Final Interpretation: Specimen is inadequately cellular for diagnosis. Cellblock: The cellblock preparation is hypocellular, reveal rare cuboid to low columnar cells without atypia. B. Pancreas neck cyst # 2, fine needle aspiration: Category: Negative for malignancy. Final Interpretation: Rare degenerated macrophages and debris. No epithelial cells identified. Cellblock: The cellblock preparation is hypocellular, and shows similar findings. C. Pancreas body cyst, fine needle aspiration: Category: Negative for malignancy. Final Interpretation: Rare degenerated macrophages and debris. No epithelial cells identified. Cellblock: The cellblock preparation is hypocellular. D. Pancreas head cyst, fine needle aspiration: Category: Negative for malignancy. Final Interpretation: Blood and rare gastric-type epithelium, no high-grade dysplasia. Cellblock: The cellblock preparation shows similar findings. Immunoassays were attempted; the epithelial cells were positive for S100P; focally to CK7, maspin, and pVHL; negative with KOC. Comment: The cytospin reveals rare mucinous epithelial cells without atypia and blood. No mucin debris or high-grade dysplasia identified. The cyst fluid analyses reveal CEA level at 85.9 ng/ml and amylase at >7500 U/L in patients EPIC chart. The findings are negative for malignancy. The nature of those gastric type epithelium is uncertain, the differential considerations include gastric mucosal contaminants or mucinous cystic lining cells. Correlation with clinical and radiographic findings is required. Colonoscopy 2018: - One 4 mm polyp in the rectum, removed with a cold snare. Resected and retrieved. - The distal rectum and anal verge are normal on retroflexion view. Allergies Allergy/AdvReac Type Severity Reaction Status Date / Time oxycodone Allergy Unknown Flushing Verified 09/24/22 13:02 propoxyphene Allergy Unknown Flushing Verified 09/24/22 13:02 niacin AdvReac Unknown flushed Verified 09/24/22 13:02 feeling Home Medications Medication Instructions Recorded Confirmed Type albuterol sulfate 90 mcg/actuation 2 puff inhalation BID 08/03/22 11/30/22 History aerosol inhaler apixaban 2.5 mg tablet (Eliquis) 2.5 mg PO BID 08/03/22 11/30/22 History aspirin 81 mg capsule 81 mg PO QAM 08/03/22 11/30/22 History atorvastatin 20 mg tablet (Lipitor) 20 mg PO HS 08/03/22 11/30/22 History calcium carbonate 600 mg-vitamin 1 tab PO QAM 08/03/22 11/30/22 History D3 10 mcg (400 unit) tablet (Calcium 600 + D(3)) cyclosporine 0.05 % eye drops in a 1 drp ophthalmic (eye) Q12H PRN 08/03/22 11/30/22 History dropperette (Restasis) Dry Eye(S) diltiazem HCl 180 mg 180 mg PO QAM 08/03/22 11/30/22 History capsule,extended release 24 hr escitalopram oxalate 20 mg tablet 20 mg PO QAM 08/03/22 11/30/22 History (Lexapro) fluticasone 250 mcg-salmeterol 50 1 inh inhalation BID 08/03/22 11/30/22 History mcg/dose blistr powdr for inhalation (Wixela Inhub) guaifenesin 600 mg tablet, 600 mg PO BID 08/03/22 11/30/22 History extended release 12 hr (Mucinex) levothyroxine 75 mcg tablet 75 mcg PO QAM 08/03/22 11/30/22 History lutein 20 mg tablet 20 mg PO HS 08/03/22 11/30/22 History magnesium 200 mg tablet 400 mg PO HS 08/03/22 11/30/22 History metoprolol tartrate 25 mg tablet 25 mg PO BID 08/03/22 11/30/22 History mirtazapine 30 mg tablet (Remeron) 30 mg PO HS 08/03/22 11/30/22 History multivitamin 1 tab PO QAM 08/03/22 11/30/22 History olanzapine 5 mg tablet (Zyprexa) 5 mg PO HS 08/03/22 11/30/22 History potassium chloride 10 mEq 10 meq PO QAM 08/03/22 11/30/22 History capsule,extended release ropinirole 1 mg tablet 1 mg PO HS 08/03/22 11/30/22 History spironolactone 25 mg tablet 12.5 mg PO UD 08/03/22 11/30/22 History tamsulosin 0.4 mg capsule 0.4 mg PO QAM 08/03/22 11/30/22 History acetaminophen 500 mg tablet 1,000 mg (2 x 500 mg) PO TID pain 08/17/22 11/30/22 Rx (Tylenol Extra Strength) 30 days #180 tabs sodium chloride 3 % for 3 ml inhalation BID 11/30/22 11/30/22 History nebulization torsemide 20 mg tablet 40 mg PO DAILY 11/30/22 11/30/22 History Patient History Medical History A-fib follows w/ [facility], [place] on Eliquis Anxiety and depression Aortic stenosis Mild per 2021 ECHO Asthmatic bronchitis Breathing stable - chronic (hx of smoker) Chronic kidney disease (CKD), stage III (moderate) Chronic respiratory failure Diastolic heart failure Compensated per cardio records Encounter for pre-operative examination HTN (hypertension) Hx of pyoderma gangrenosum BLE Hyperlipidemia Hypothyroidism On anticoagulant therapy eliquis Pacemaker medtronic, last checked 05/13/22, remotely Prostate cancer Around 2013- s/p brachytherapy - Lupron q 3 months Pulmonary disease restrictive lung disease, hypoxic respiratory failure, hypercapnic respiratory failure , bronchiectasis, 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, 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 per records Restless leg syndrome Sleep apnea bipap; 3 lpm hs Tachy-noni syndrome s/p pacemaker placement 2017 Surgical History History of surgery Rectal fissure repair Hx of colonoscopy Hx of tonsillectomy Hx of total hip arthroplasty RIGHT S/P placement of cardiac pacemaker Status post left hip replacement Family History Other No family history of adverse response to anesthesia Social History Smoking Status: Never smoker Smoking End Date: Quit in 1978; Second Hand Exposure: No; Do You Dip or Chew Tobacco: No; Hx Alcohol Use: No Hx Substance Use: No Preferred Language: Japanese Communication Ability: Effective Venue Coordinator Required: No Beliefs That Will Affect Care: None Current Living Situation: Spouse Other Information That Helps Us Care for You: No Feels Safe at Home: Yes Safety Concerns: Feels Safe At This Time Assistive Devices: Cane, Oxygen - Continuous and Walker Review of Systems Review of Systems: All systems reviewed & are unremarkable except as noted in HPI & below Physical Exam Constitutional: NAD ENMT: Sclera anicteric Cardiovascular: Normal resp effort, on O2 via NC Gastrointestinal (Abdomen): Soft, nontender, nondistended Skin: Warm, dry Psychiatric: A+Ox3, euthymic affect Results & Data Vital Signs (Past 12 Hours) Vital Signs Temp Pulse Pulse Resp BP BP Pulse Ox 12/14/22 08:43 12/14/22 08:00 36.7 C 100 H 18 119/76 94 12/14/22 07:41 95 H 18 94 12/13/22 23:31 94 H 103/64 O2 Del Method O2 Flow Rate 12/14/22 08:43 Nasal Cannula 4 12/14/22 08:00 Nasal Cannula 4 12/14/22 07:41 Nasal Cannula 4 12/13/22 23:31 Laboratory Results 12/14/22 12/13/22 Range/Units 07:09 05:51 WBC 13.53 H (4.8-10.8) K/ul RBC 2.98 L (4.70-6.10) M/uL Hgb 8.9 L (14.0-18.0) g/dl Hct 28.0 L (42.0-52.0) % MCV 94.0 (80.0-100.0) fL MCH 29.9 (25.0-34.0) pg MCHC 31.8 L (32.0-36.0) g/dL RDW Std Deviation 55.7 H (36.4-46.3) fL RDW Coeff of Reuben 16.5 H (11.5-14.5) % Plt Count 234 (130-400) K/uL MPV 10.4 (9.4-12.4) fL Sodium 143 (136-145) mmol/L Potassium 3.8 (3.5-5.1) mmol/L Chloride 103 (98-107) mmol/L Carbon Dioxide 34 H (21-32) mmol/L Anion Gap 6 (3-11) BUN 26 H (6-23) mg/dl Creatinine 1.11 (0.6-1.4) mg/dl Est Cr Clr Drug Dosing 61.4 ml/min Est GFR ( Amer) 71.3 ml/min Est GFR (Non-Af Amer) 61.5 ml/min BUN/Creatinine Ratio 23.4 H (10-20) Glucose 103 H (70-99(Fasting)) mg/dl Calcium 9.1 (8.6-10.3) mg/dl Phosphorus 3.3 (2.5-4.9) mg/dl Magnesium 2.0 2.2 (1.7-2.4) mg/dl Diagnostic Findings Ct Chest 12/12 Lungs and pleura: Atelectasis is seen most prominently in the bilateral lower lobes. There is a trace right pleural effusion. Heart and pericardium: Cardiomegaly is seen with biatrial enlargement. Vessels: Severe atherosclerotic changes in the aorta and coronary arteries. Mediastinum and jemal: Unremarkable. Chest wall and lower neck: Unremarkable. Abdomen: Bilateral renal cysts are seen. Bones: Degenerative changes are seen in the spine with posterior fixation hardware in the mid thoracic spine. IMPRESSION: 1. Atelectasis is seen in the bilateral lungs. Superimposed infection cannot be entirely excluded. There is a trace right pleural effusion. 2. Cardiomegaly.
[2022-12-14] MEDS: POTASSIUM CHLORIDE 10 MEQ TABCR PO SCH (10:25)
[2022-12-14] MEDS: PANTOprazole 40 MG in SYRINGE 0 ML IV SCH ×2 (10:25→21:57)
--- NOTE | 2022-12-14 13:10 | Electrocardiogram Report ---
Test Reason : Blood Pressure : / mmHG Vent. Rate : 100 BPM Atrial Rate : 097 BPM P-R Int : 000 ms QRS Dur : 140 ms QT Int : 366 ms P-R-T Axes : 000 009 -24 degrees QTc Int : 472 ms Atrial fibrillation Right bundle branch block T wave abnormality, consider lateral ischemia Abnormal ECG When compared with ECG of 30-NOV-2022 12:57, Atrial fibrillation has replaced Electronic ventricular pacemaker Confirmed by Mario Alberto Zacarias ([id number]) on 12/14/2022 1:10:09 PM Referred By: REFERRED SELF Confirmed By:Mario Alberto Zacarias
[2022-12-14] MEDS: VANCOMYCIN HCL 1,500 MG in SODIUM CHLORIDE 0.9% 500 ML IV SCH (20:00)
[2022-12-14] MEDS: MIRTAZAPINE TAB 15 MG TAB PO SCH (20:27)
[2022-12-14] MEDS: OLANZapine 5 MG TABLET PO SCH (20:27)
[2022-12-14] MEDS: rOPINIRole HCL 1 MG TABLET PO SCH (20:27)
[2022-12-14] MEDS: MAGNESIUM OXIDE 400 MG TAB PO SCH (20:27)
[2022-12-14] MEDS: DOCUSATE SODIUM/SENNA 50/8.6MG TAB PO SCH (20:27)
[2022-12-15] MEDS: HYDROmorphone INJ 0.5 MG/0.5 ML SYR IV PRN ×2 (00:54→05:16)
[2022-12-15] MEDS: CEFEPIME 2,000 MG in SYRINGE 0 ML IV SCH ×2 (02:06→09:56)
[2022-12-15] MEDS: SODIUM CHLOR 7% 4 ML NEB INH SCH ×2 (07:06→19:18)
[2022-12-15] MEDS: LEVALBUTEROL 1.25 MG/3 ML NEB NEB SCH ×2 (07:06→19:18)
[2022-12-15] MEDS: IPRATROPIUM BROMIDE NEB SOLN 0.02% 2.5 ML VIAL INH SCH ×2 (07:17→19:18)
--- NOTE | 2022-12-15 07:48 | Hospitalist Progress Note ---
Date of Service December 15, 2022 Assessment & Plan (1) Post-op pneumonia: Plan: CT reading reveals atelectasis vs pneumonia. Not significantly improved from a clinical standpoint, but leukocytosis has improved. Cont current therapy, will de-escalate to oral Augmentin and doxycycline. Aspiration precautions! (2) Dysphagia: Plan: EGD this morning revealed no appreciable esophageal motility. A hypertonic lower esophageal sphincter was found which was dilated. The stomach and duodenal areas were normal and no specimens were collected. The examination was suspicious for achalasia. Routine esophageal manometry at the next available appointment as outpatient was recommended. No further GI work-up as inpatient was needed. Advance diet as tolerated to soft diet. (3) Food impaction of esophagus: Plan: s/p glucagon and patient was able to vomit it out with resolution of symptoms. EGD per GI. Cont PPI in the short term (4) Thoracic spinal stenosis: (5) Lumbar spinal stenosis: (6) Weakness: Plan: CT head: No acute intracranial findings CT lumbar Spine: IMPRESSION:1. No acute fracture or subluxation.2. Levoscoliosis with multilevel degenerative changes of the above resulting in associated central canal and neural foraminal narrowing. Lumbar spine MRI with levoscoliosis with multilevel degenerative changes of the above resulting in associated central canal and neural foraminal narrowing. S/p lumbar decompression bilaterally facetectomies and foraminotomies L2-L3, L3- L4 and L4-5 and posterior spinal fusion L3-L4 L4-[address] Esteves on 12/03 Thoracic spine MRI ordered by spine Ortho due to ongoing weakness There is a broad-based posterior disc bulge at T11-T12 with likely severe canal stenosis, AP diameter of 3 mm, and moderate bilateral neuroforaminal stenosis. S/p decompression fusion T10-T12 by Dr. Esteves on 12/09 Activity and wound care orders as per ortho Pain control with bowel regimen PT/OT, plan for discharge to rehab Acute blood loss anemia In setting of post-of blood loss, dilutional factors Asymptomatic Hb stable and no bleeding. Continue to monitor H/H, transfuse blood products PRN, currently stable (7) Chronic respiratory failure: Plan: Chronic bronchitis, bronchiectasis On chronic 2-3 L oxygen via nasal cannula Continue oxygen supplementation Continue home inhalers, nebulizers (8) Chronic atrial fibrillation: Plan: Eliquis on hold postop from initial surgery and given potential need for add'l surgery, was transitioned to full dose Lovenox on 12/07 Eliquis remains on hold now -per ortho may need to take back to the OR for I&D of post op seroma. Cont metoprolol tartrate, diltiazem (9) Acute kidney injury superimposed on CKD: Plan: resolved (10) Chronic kidney disease (CKD), stage III (moderate): Plan: Creatinine peaked to 1.7 on 12/05 -in the setting of surgery, n.p.o. status Baseline creatinine low 1s --> resolved Continue to monitor renal functions (11) Hypothyroidism: Plan: Chronic, stable Continue levothyroxine (12) Chronic heart failure with preserved ejection fraction: Plan: chronic, stable. Cont current medical therapy. 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 Continue Lexapro (17) Restless leg syndrome: Plan: chronic, stable. 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 change from previous, per d/w radiology today) Also showing indeterminate sclerotic lesion within the right iliac wing measuring up to 3 cm. A metastatic lesion could have this appearance. Significant in setting of prostate cancer, currently receiving Lupron inj Q3M (due in Jan 2023), has f/u with Dr. Preciado 01/07 Dr. Preciado aware of results, pushed imaging for further determination of treatment, need for bone scan This was also discussed w patient and family together in the room. Followup [facility] oncology as outpatient to guide treatment plan. (19) Sleep apnea: Plan: BiPAP at bedtime DVT PROPHYLAXIS TEDs/SCDs while not receiving anticoagulation Dispo -uncertain at this time, cont hospitalization pending clinical improvement. Thank you for this consultation. I spent a total [id number] coordinating, documenting, and providing care for this patient excluding time spent in the performance of separately billed services Maribeth Ruvalcaba DO [facility] Hospitalist Admission and Anticipated Discharge Date Admission Date: December 02, 2022 Subjective 82 yo M s/p two separate back surgeries Transition to PCU after tachycardia was persistent overnight and poor/slow postoperative recovery Today he continues to report leg spasms especially provoked when he is turned by nurses. He does report that he can get comfortable without pain medication or muscle relaxers by repositioning himself. Still remains weak and unable to move around independently in the bed. Underwent EGD this morning with dilation of lower esophageal stricture and questionable achalasia. Tolerated the procedure well and we agreed to clear liquids for lunch and soft diet after that. Per primary RN he is not sufficiently covered with the external urinary catheter and in an effort to avoid wounds becoming contaminated and for patient comfort, we are placing a urinary catheter this morning Posterior surgical sites were evaluated with fairly significant ecchymosis especially in the lumbar area and a persistent CINTIA drain in the thoracic area. Diffuse wheezing heard throughout all lung jensen posteriorly and he reports this is normal. He denies any increased work of breathing or shortness of breath today. Physical Exam Physical Exam: CONSTITUTIONAL: WNWD, vitals as above, NAD EYES: normal conjunctivae, no scleral icterus ENT: external ear and nose normal, MMM NECK: trachea midline, RESPIRATORY: Diffuse wheezing throughout all lung jensen, no crackles or rales, normal respiratory effort CARDIOVASCULAR: regular rate and rhythm, S1 and 2 heard without murmurs, gallops or rubs, no JVD, no peripheral edema CHEST: inspection of chest was normal GASTROINTESTINAL: soft, nontender, ND, no guarding MUSCULOSKELETAL: strength 5/5 throughout, head is normocephalic and atraumatic SKIN: warm and dry, ecchymosis at L spine around spinal incisions lumbar>thoracic with CINTIA drain insertion site into thoracic area, clean and dry. NEUROLOGIC: CN 2-12 grossly intact, no sensory deficit, normal cognition, normal speech, no tremor PSYCHIATRIC: alert cooperative and oriented to person, place and time. Results & Data Results & Data Vital Signs (Past 12 Hours) Vital Signs Temp Pulse Resp BP Pulse Ox O2 Del Method O2 Flow Rate 12/15/22 07:18 107 H 22 95 Nasal Cannula 3 12/15/22 03:00 36.4 C L 91 H 16 116/63 95 Nasal Cannula 3 12/14/22 23:00 36.6 C 74 18 109/63 96 Nasal Cannula 3 12/14/22 20:00 Nasal Cannula 3 Laboratory Results Short CBC 12/15/22 Range/Units 07:31 WBC 11.22 H (4.8-10.8) K/ul Hgb 9.4 L (14.0-18.0) g/dl Hct 30.7 L (42.0-52.0) % Plt Count 226 (130-400) K/uL BMP 12/15/22 07:31 Sodium 142 Potassium 3.7 Chloride 101 Carbon Dioxide 36 H BUN 26 H Creatinine 1.29 Glucose 98 Calcium 8.8 Medications Administered Current Inpatient Medications Acetaminophen (Acetaminophen 500 Mg Tab) 1,000 mg PO Q8H PRN PRN Reason: MILD Pain Scale 1,2,3 & Pre PT Stop: 01/02/23 17:12 Hydrocodone Bitart/Acetaminophen (Hydrocodone/Acetamophen 5/325mg Tab) 1 tab PO Q4H PRN PRN Reason: Pain & Pre PT Stop: 12/17/22 17:12 Last Admin: 12/14/22 15:16 Dose: 1 tab Al Hydrox/Mg Hydrox/Simethicone (Aluminum/Magnesium Susp 30 Ml Udc) 30 ml PO Q6H PRN PRN Reason: Dyspepsia Stop: 01/02/23 17:12 Aspirin (Aspirin 81 Mg Ectab) 81 mg PO [facility] Stop: 12/31/22 08:59 Last Admin: 12/14/22 08:20 Dose: 81 mg Atorvastatin Calcium (Atorvastatin 20 Mg Tab) 20 mg PO [facility] Stop: 12/30/22 20:59 Last Admin: 12/12/22 20:48 Dose: 20 mg Bisacodyl (Bisacodyl 10 Mg Supp) 10 mg LA DAILY PRN PRN Reason: Constipation Stop: 01/02/23 17:12 Last Admin: 12/10/22 12:26 Dose: 10 mg Calcium/Vitamin D (Calcium 600mg + Vit D 400 Iu Tab) [facility]: 12/31/22 08:59 Last Admin: 12/13/22 09:35 Dose: 1 tab Diltiazem HCl (Diltiazem Hcl 180 Mg Capcr) [facility] Stop: 12/31/22 08:59 Last Admin: 12/14/22 08:21 Dose: 180 mg Diphenhydramine HCl (Diphenhydramine Capsule 25 Mg Cap) 25 mg PO Q6H PRN PRN Reason: Allergic Rhinitis/Insomnia Stop: 01/02/23 17:12 Escitalopram Oxalate (Escitalopram Oxalate 20 Mg Tab) 20 mg PO QAM [facility] Stop: 12/31/22 08:59 Last Admin: 12/14/22 08:21 Dose: 20 mg Famotidine (Famotidine 20 Mg Tab) 20 mg PO Q12H PRN PRN Reason: Dyspepsia Stop: 01/02/23 17:12 Fluticasone/Vilanterol (Fluticasone/Vilanterol 200/25mcg 14 Puffs/Inhaler) 1 puffs INH DAILY [facility] Stop: 12/31/22 08:59 Last Admin: 12/14/22 08:22 Dose: 1 puffs Guaifenesin (Guaifenesin 600 Mg Tabcr) 600 mg PO BID [facility] Stop: 12/30/22 20:59 Last Admin: 12/13/22 09:36 Dose: 600 mg Hydromorphone HCl (Hydromorphone Inj 0.5 Mg/0.5 Ml Syr) 0.5 mg IV Q3H PRN PRN Reason: MODERATE Pain (Scale 4,5,6) & Pre PT Stop: 12/17/22 17:12 Last Admin: 12/15/22 05:16 Dose: 0.5 mg Hydromorphone HCl (Hydromorphone Inj 1 Mg/Ml Syringe) 1 mg IV Q3H PRN PRN Reason: SEVERE Pain (Scale 7,8,9,10) Stop: 12/17/22 17:12 Last Admin: 12/09/22 16:25 Dose: 0.25 mg Hydroxyzine HCl (Hydroxyzine Hcl 25 Mg Tab) 25 mg PO Q8H PRN PRN Reason: Anxiety Stop: 01/02/23 17:12 Cefepime HCl 2,000 mg/ Syringe 20 mls @ 5 mls/min IV Q8H [facility]; Protocol Stop: 12/20/22 09:59 Last Admin: 12/15/22 02:06 Dose: 5 mls/min Vancomycin HCl 1,500 mg/ (Sodium Chloride) 530 mls @ 200 mls/hr IV Q24H [facility] Stop: 12/20/22 19:59 Last Infusion: 12/14/22 22:44 Dose: Infused Pantoprazole Sodium 40 mg/ (Syringe) 10 mls @ 5 mls/min IV BID [facility] Stop: 01/12/23 20:59 Last Admin: 12/14/22 21:57 Dose: 5 mls/min Influenza Virus Vaccine Quadrival (Do Not Administer Flu Vaccine) 1 each N/A PRN PRN PRN Reason: Notification Stop: 01/02/23 17:12 Ipratropium Holden (Ipratropium Holden Neb Soln 0.02% 2.5 Ml Vial) 0.5 mg INH BIDR [facility] Stop: 01/13/23 19:44 Last Admin: 12/15/22 07:17 Dose: 0.5 mg Levalbuterol HCl (Levalbuterol 1.25 Mg/3 Ml Neb) 1.25 mg NEB BIDR [facility] Stop: 01/12/23 19:44 Last Admin: 12/15/22 07:06 Dose: 1.25 mg Lorazepam (Lorazepam 0.5 Mg Tab) 0.5 mg PO Q8H PRN PRN Reason: Sedation/Anxiety Stop: 01/02/23 17:12 Last Admin: 12/13/22 18:35 Dose: 0.5 mg Magnesium Hydroxide (Magnesium Hydroxide Susp 30 Ml Udc) 30 ml PO Q24H PRN PRN Reason: Constipation Stop: 01/02/23 17:12 Magnesium Oxide (Magnesium Oxide 400 Mg Tab) 400 mg PO HS [facility] Stop: 12/30/22 20:59 Last Admin: 12/14/22 20:27 Dose: 400 mg Metoclopramide HCl (Metoclopramide Hcl Inj 5 Mg/Ml 2 Ml Vial) 10 mg IV Q6H PRN PRN Reason: Nausea &/or Vomiting Stop: 01/02/23 17:12 Metoprolol Tartrate (Metoprolol Tartrate 25 Mg Tab) 25 mg PO BID [facility] Stop: 12/30/22 20:59 Last Admin: 12/14/22 20:27 Dose: 25 mg Mirtazapine (Mirtazapine Tab 15 Mg Tab) 30 mg PO HS [facility] Stop: 12/30/22 20:59 Last Admin: 12/14/22 20:27 Dose: 30 mg Miscellaneous Information (Vancomycin Consult Active) 1 each N/A UD PRN PRN Reason: Consult Stop: 01/11/23 16:36 Naloxone HCl (Naloxone Hcl 0.4 Mg/1 Ml Vial/Carp) 0.1 mg IV Q5M PRN PRN Reason: Oversedation/Resp depression Stop: 01/02/23 17:12 Olanzapine (Olanzapine 5 Mg Tablet) 5 mg PO [facility] Stop: 12/30/22 20:59 Last Admin: 12/14/22 20:27 Dose: 5 mg Ondansetron HCl (Ondansetron Inj 2 Mg/Ml 2 Ml Vial) 4 mg IV Q6H PRN PRN Reason: Nausea &/or Vomiting Stop: 01/02/23 17:12 Ondansetron HCl (Ondansetron 4 Mg Od Tab) 4 mg PO Q6H PRN PRN Reason: Nausea Stop: 01/02/23 17:12 Pneumococcal Polyvalent Vaccine (Do Not Administer Pneumococcal Vaccine) 1 each N/A PRN PRN PRN Reason: Notification Stop: 01/02/23 17:12 Polyethylene Glycol (Polyethylene (Miralax) 17 Gm Pack) 17 gm PO DAILY PRN PRN Reason: Constipation Stop: 12/30/22 17:48 Potassium Chloride (Potassium Chloride 10 Meq Tabcr) 10 meq PO QAM [facility] Stop: 12/31/22 08:59 Last Admin: 12/14/22 10:25 Dose: 10 meq Ropinirole HCl (Ropinirole Hcl 1 Mg Tablet) 1 mg PO [facility] Stop: 12/30/22 20:59 Last Admin: 12/14/22 20:27 Dose: 1 mg Senna/Docusate Sodium (Docusate Sodium/Senna 50/8.6mg Tab) 2 tab PO [facility] Stop: 01/02/23 20:59 Last Admin: 12/14/22 20:27 Dose: 2 tab Sodium Biphosphate/Sodium Phosphate (Sod Phosphate/Sod Biphosphate Enema 132 Ml Btl) 132 ml LA ONE PRN PRN Reason: Constipation Stop: 01/02/23 17:12 Sodium Chloride (Sodium Chlor 7% 4 Ml Neb) 4 ml INH BIDR [facility] Stop: 12/30/22 18:59 Last Admin: 12/15/22 07:06 Dose: 4 ml Spironolactone (Spironolactone 12.5 Mg Tab) 12.5 mg PO [id number] [facility] Stop: 01/10/23 08:59 Last Admin: 12/14/22 08:22 Dose: 12.5 mg Tamsulosin HCl (Tamsulosin Hcl 0.4 Mg Cap) 0.[facility] Stop: 12/31/22 08:59 Last Admin: 12/14/22 08:23 Dose: 0.4 mg Torsemide (Torsemide 10 Mg Tab) 40 mg PO QAM [facility] Stop: 01/10/23 08:59 Last Admin: 12/14/22 08:23 Dose: 40 mg Tramadol HCl (Tramadol Hcl 50 Mg Tablet) 50 - 100 mg PO Q4H PRN PRN Reason: Moderate-Severe pain & Pre PT Stop: 01/02/23 17:12 Last Admin: 12/13/22 09:33 Dose: 100 mg
[2022-12-15] MEDS: HYDROmorphone INJ 1 MG/ML SYRINGE IV PRN ×2 (07:55→21:14)
[2022-12-15 07:58] LABS: Hematocrit (blood only) 30.7 % (42.0-52.0); Hemoglobin 9.4 g/dl (14.0-18.0); Mean Corpuscular Hemoglobin 29.7 pg (25.0-34.0); Mean Corpuscular Hgb Conc 30.6 g/dL (32.0-36.0); Mean Corpuscular Volume 96.8 fL (80.0-100.0); Mean Platelet Volume 9.9 fL (9.4-12.4); Platelet Count 226 K/uL (130-400); RDW Coefficient of Variation 16.6 % (11.5-14.5); RDW Standard Deviation 57.8 fL (36.4-46.3); Red Blood Count 3.17 M/uL (4.70-6.10); White Blood Count 11.22 K/ul (4.8-10.8)
--- NOTE | 2022-12-15 08:06 | Anesthesiology Consultation ---
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 Consults Requested none Proposed Anesthesia Anesthesia Type: MAC History Surgery Operation Date: 12/03/22 11:55 Proposed Procedures p L3-L5 Decompression and Fusion - Randolph Esteves DO Operation Date: 12/09/22 13:45 Proposed Procedures p T10-T12 Decompression Possible Fusion - Randolph Esteves, Operation Date: 12/15/22 16:30 Proposed Procedures p Esophagogastroduodenoscopy Dr Lucia - Kiran Lucia MD Height/Weight Height: 5 ft 11 in Weight: 99.5 kg Allergies Allergy/AdvReac Type Severity Reaction Status Date / Time oxycodone Allergy Unknown Flushing Verified 09/24/22 13:02 propoxyphene Allergy Unknown Flushing Verified 09/24/22 13:02 niacin AdvReac Unknown flushed Verified 09/24/22 13:02 feeling Medications Home Medications Medication Instructions Recorded Confirmed Last Taken albuterol sulfate 90 mcg/actuation 2 puff inhalation BID 08/03/22 11/30/22 08/19/22 04:00 aerosol inhaler apixaban 2.5 mg tablet (Eliquis) 2.5 mg PO BID 08/03/22 11/30/22 11/29/22 aspirin 81 mg capsule 81 mg PO QAM 08/03/22 11/30/22 08/19/22 04:00 atorvastatin 20 mg tablet (Lipitor) 20 mg PO HS 08/03/22 11/30/22 08/18/22 21:00 calcium carbonate 600 mg-vitamin 1 tab PO QAM 08/03/22 11/30/22 08/18/22 21:00 D3 10 mcg (400 unit) tablet (Calcium 600 + D(3)) cyclosporine 0.05 % eye drops in a 1 drp ophthalmic (eye) Q12H PRN 08/03/22 11/30/22 Unknown dropperette (Restasis) Dry Eye(S) diltiazem HCl 180 mg 180 mg PO QAM 08/03/22 11/30/22 11/29/22 capsule,extended release 24 hr escitalopram oxalate 20 mg tablet 20 mg PO QAM 08/03/22 11/30/22 11/29/22 (Lexapro) fluticasone 250 mcg-salmeterol 50 1 inh inhalation BID 08/03/22 11/30/22 08/19/22 04:00 mcg/dose blistr powdr for inhalation (Wixela Inhub) guaifenesin 600 mg tablet, 600 mg PO BID 08/03/22 11/30/22 08/19/22 04:00 extended release 12 hr (Mucinex) levothyroxine 75 mcg tablet 75 mcg PO QAM 08/03/22 11/30/22 11/30/22 lutein 20 mg tablet 20 mg PO HS 08/03/22 11/30/22 08/14/22 magnesium 200 mg tablet 400 mg PO HS 08/03/22 11/30/22 08/14/22 metoprolol tartrate 25 mg tablet 25 mg PO BID 08/03/22 11/30/22 11/29/22 mirtazapine 30 mg tablet (Remeron) 30 mg PO HS 08/03/22 11/30/22 11/29/22 multivitamin 1 tab PO QAM 08/03/22 11/30/22 08/14/22 olanzapine 5 mg tablet (Zyprexa) 5 mg PO HS 08/03/22 11/30/22 11/29/22 potassium chloride 10 mEq 10 meq PO QAM 08/03/22 11/30/22 11/29/22 capsule,extended release ropinirole 1 mg tablet 1 mg PO HS 08/03/22 11/30/22 11/29/22 spironolactone 25 mg tablet 12.5 mg PO UD 08/03/22 11/30/22 11/27/22 tamsulosin 0.4 mg capsule 0.4 mg PO QAM 08/03/22 11/30/22 08/19/22 04:00 acetaminophen 500 mg tablet 1,000 mg (2 x 500 mg) PO TID pain 08/17/22 11/30/22 08/16/22 (Tylenol Extra Strength) 30 days #180 tabs sodium chloride 3 % for 3 ml inhalation BID 11/30/22 11/30/22 Unknown nebulization torsemide 20 mg tablet 40 mg PO DAILY 11/30/22 11/30/22 11/29/22 Active Medications Generic Name Dose Route Start Last Admin Trade Name Freq PRN Reason Stop Dose Admin Hydrocodone Bitart/Acetaminophen 1 tab 12/13/22 11:30 12/14/22 15:16 Hydrocodone/Acetamophen 5/325mg Tab PO 12/17/22 17:12 1 tab Q4H PRN Administration Pain & Pre PT Aspirin 81 mg 12/01/22 09:00 12/14/22 08:20 Aspirin 81 Mg Ectab PO 12/31/22 08:59 81 mg QAM IRMA Administration Atorvastatin Calcium 20 mg 11/30/22 21:00 12/12/22 20:48 Atorvastatin 20 Mg Tab PO 12/30/22 20:59 20 mg HS IRMA Administration Bisacodyl 10 mg 12/03/22 17:13 12/10/22 12:26 Bisacodyl 10 Mg Supp CA 01/02/23 17:12 10 mg DAILY PRN Administration Constipation Calcium/Vitamin D 1 tab 12/01/22 09:00 12/13/22 09:35 Calcium 600mg + Vit D 400 Iu Tab PO 12/31/22 08:59 1 tab QAM IRMA Administration Diltiazem HCl 180 mg 12/01/22 09:00 12/14/22 08:21 Diltiazem Hcl 180 Mg Capcr PO 12/31/22 08:59 180 mg QAM IRMA Administration Escitalopram Oxalate 20 mg 12/01/22 09:00 12/14/22 08:21 Escitalopram Oxalate 20 Mg Tab PO 12/31/22 08:59 20 mg QAM IRMA Administration Fluticasone/Vilanterol 1 puffs 12/01/22 09:00 12/14/22 08:22 Fluticasone/Vilanterol 200/25mcg 14 Puffs/Inhaler INH 12/31/22 08:59 1 puffs DAILY IRMA Administration Guaifenesin 600 mg 11/30/22 21:00 12/13/22 09:36 Guaifenesin 600 Mg Tabcr PO 12/30/22 20:59 600 mg BID IRMA Administration Hydromorphone HCl 0.5 mg 12/03/22 17:13 12/15/22 05:16 Hydromorphone Inj 0.5 Mg/0.5 Ml Syr IV 12/17/22 17:12 0.5 mg Q3H PRN Administration MODERATE Pain (Scale 4,5,6) & Pre PT Hydromorphone HCl 1 mg 12/03/22 17:13 12/15/22 07:55 Hydromorphone Inj 1 Mg/Ml Syringe IV 12/17/22 17:12 1 mg Q3H PRN Administration SEVERE Pain (Scale 7,8,9,10) Cefepime HCl 2,000 mg/ Syringe 20 mls @ 5 mls/min 12/13/22 10:00 12/15/22 02:06 IV 12/20/22 09:59 5 mls/min Q8H IRMA Administration Protocol Vancomycin HCl 1,500 mg/ 530 mls @ 200 mls/hr 12/13/22 20:00 12/14/22 22:44 Sodium Chloride IV 12/20/22 19:59 Infused Q24H IRMA Infusion Pantoprazole Sodium 40 mg/ 10 mls @ 5 mls/min 12/13/22 21:00 12/14/22 21:57 Syringe IV 01/12/23 20:59 5 mls/min BID IRMA Administration Ipratropium [place] 0.5 mg 12/14/22 19:45 12/15/22 07:17 Ipratropium [place] Neb Soln 0.02% 2.5 Ml Vial INH 01/13/23 19:44 0.5 mg BIDR IRMA Administration Levalbuterol HCl 1.25 mg 12/13/22 19:45 12/15/22 07:06 Levalbuterol 1.25 Mg/3 Ml Neb NEB 01/12/23 19:44 1.25 mg BIDR IRMA Administration Lorazepam 0.5 mg 12/03/22 17:13 12/13/22 18:35 Lorazepam 0.5 Mg Tab PO 01/02/23 17:12 0.5 mg Q8H PRN Administration Sedation/Anxiety Magnesium Oxide 400 mg 11/30/22 21:00 12/14/22 20:27 Magnesium Oxide 400 Mg Tab PO 12/30/22 20:59 400 mg HS IRMA Administration Metoprolol Tartrate 25 mg 11/30/22 21:00 12/14/22 20:27 Metoprolol Tartrate 25 Mg Tab PO 12/30/22 20:59 25 mg BID IRMA Administration Mirtazapine 30 mg 11/30/22 21:00 12/14/22 20:27 Mirtazapine Tab 15 Mg Tab PO 12/30/22 20:59 30 mg HS IRMA Administration Olanzapine 5 mg 10/23/23 21:00 12/14/22 20:27 Olanzapine 5 Mg Tablet PO 12/30/22 20:59 5 mg HS IRMA Administration Potassium Chloride 10 meq 12/01/22 09:00 12/14/22 10:25 Potassium Chloride 10 Meq Tabcr PO 12/31/22 08:59 10 meq QAM IRMA Administration Ropinirole HCl 1 mg 11/30/22 21:00 12/14/22 20:27 Ropinirole Hcl 1 Mg Tablet PO 12/30/22 20:59 1 mg HS IRMA Administration Senna/Docusate Sodium 2 tab 12/03/22 21:00 12/14/22 20:27 Docusate Sodium/Senna 50/8.6mg Tab PO 01/02/23 20:59 2 tab HS IRMA Administration Sodium Chloride 4 ml 11/30/22 19:00 12/15/22 07:06 Sodium Chlor 7% 4 Ml Neb INH 12/30/22 18:59 4 ml BIDR IRMA Administration Spironolactone 12.5 mg 12/11/22 09:00 12/14/22 08:22 Spironolactone 12.5 Mg Tab PO 01/10/23 08:59 12.5 mg [id number] IRMA Administration Tamsulosin HCl 0.4 mg 12/01/22 09:00 12/14/22 08:23 Tamsulosin Hcl 0.4 Mg Cap PO 12/31/22 08:59 0.4 mg QAM IRMA Administration Torsemide 40 mg 12/11/22 09:00 12/14/22 08:23 Torsemide 10 Mg Tab PO 01/10/23 08:59 40 mg QAM IRMA Administration Tramadol HCl 50 - 100 mg 12/03/22 17:13 12/13/22 09:33 Tramadol Hcl 50 Mg Tablet PO 01/02/23 17:12 100 mg Q4H PRN Administration Moderate-Severe pain & Pre PT NPO Last Intake of Fluids Comment: sip with meds Past Medical History Medical History Chronic respiratory failure Encounter for pre-operative examination Prostate cancer Around 2013- s/p brachytherapy - Lupron q 3 months Pulmonary disease restrictive lung disease, hypoxic respiratory failure, hypercapnic respiratory failure , bronchiectasis, 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, 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 per records Aortic stenosis Mild per 2021 ECHO Diastolic heart failure Compensated per cardio records Hx of pyoderma gangrenosum BLE On anticoagulant therapy eliquis Chronic kidney disease (CKD), stage III (moderate) Restless leg syndrome Anxiety and depression A-fib follows w/ [facility] cardio, [place] [facility]rish on Eliquis Pacemaker medtronic, last checked 05/13/22, remotely Hypothyroidism Hyperlipidemia HTN (hypertension) Sleep apnea bipap; 3 lpm hs Asthmatic bronchitis Breathing stable - chronic (hx of smoker) Tachy-noni syndrome s/p pacemaker placement 2017 Past Family History Family History Other No family history of adverse response to anesthesia Past Surgical History Surgical History Status post left hip replacement History of surgery Rectal fissure repair S/P placement of cardiac pacemaker Hx of colonoscopy Hx of tonsillectomy Hx of total hip arthroplasty RIGHT Social History Smoking Status: Never smoker tobacco type: cigarettes Do You Dip or Chew Tobacco: No Smoking End Date: Quit in 1978 Hx Alcohol Use: No Hx Substance Use: No substance use type: does not use Review of Systems Constitutional: + weakness Cardiovascular: + dyspnea at rest; no chest pain Physical Exam Vital Signs Last Vital Signs Temp 36.4 C L 12/15/22 03:00 Pulse 107 H 12/15/22 07:18 Resp 22 12/15/22 07:18 BP 116/63 12/15/22 03:00 Pulse Ox 95 12/15/22 07:18 O2 Del Method Nasal Cannula 12/15/22 07:18 O2 Flow Rate 3 12/15/22 07:18 FiO2 4 12/13/22 20:20 Testing Laboratory Results 12/15/22 07:31 Urine Color Yellow 11/30/22 14:24 Urine Appearance Clear (Clear) 11/30/22 14:24 Urine pH 5.5 (4.5-7.5) 11/30/22 14:24 Ur Specific [place] 1.017 (1.000-1.030) 11/30/22 14:24 Urine Protein Negative (Negative) 11/30/22 14:24 Urine Glucose (UA) Negative (Negative) 11/30/22 14:24 Urine Ketones Negative (Negative) 11/30/22 14:24 Urine Nitrite Negative (Negative) 11/30/22 14:24 Ur Leukocyte Esterase Negative (Negative) 11/30/22 14:24 Blood Type A Positive 12/09/22 07:15 Antibody Screen NEGATIVE 12/09/22 07:15 12/12/22 16:51 Aerobic Blood Culture - Preliminary Blood No growth in Aerobic bottle after 48 hours. Anaerobic Blood Culture - Preliminary No growth in Anaerobic bottle after 48 hours. 12/12/22 16:49 Aerobic Blood Culture - Preliminary Blood No growth in Aerobic bottle after 48 hours. Anaerobic Blood Culture - Preliminary No growth in Anaerobic bottle after 48 hours. 12/13/22 20:30 Gram Stain - Final Sputum, Expectorated Sputum Culture - Final 11/30/22 14:14 Aerobic Blood Culture - Final Blood No growth in Aerobic bottle after 5 days. Anaerobic Blood Culture - Final No growth in Anaerobic bottle after 5 days. 11/30/22 13:14 Aerobic Blood Culture - Final Blood No growth in Aerobic bottle after 5 days. Anaerobic Blood Culture - Final No growth in Anaerobic bottle after 5 days. Electrocardiogram Date: 11/30/22 Atrial fibrillation with occasional ventricular-paced complexes Right bundle branch block Abnormal ECG When compared with ECG of 05-AUG-2022 11:09, Vent. rate has increased BY 29 BPM Confirmed by Grover Gomez ([id number]) on 12/02/2022 9:18:08 PM Stress Test Date: 08/13/22 Type: nuclear negative
[2022-12-15 08:37] LABS: BUN Creatinine Ratio 20.2 (10-20); Calcium 8.8 mg/dl (8.6-10.3); Creatinine Clr Calc Pharmacy 53.1 ml/min; Est GFR (African American) 59.4 ml/min; Est GFR (Non-African American) 51.3 ml/min; Potassium 3.7 mmol/L (3.5-5.1)
[2022-12-15] MEDS ORDERED: ALBUT/IPRATROP 3MG/0.5MG NEB 3 ML VIAL INH STA (08:37)
[2022-12-15] MEDS ORDERED: LIDOCAINE 2% 2 ML VIAL/AMP(20MG/ML) INFIL ONE (09:13)
[2022-12-15] MEDS ORDERED: PROPOFOL IV EMULSION 10 MG/ML 20 ML VIAL IV ONE (09:13)
[2022-12-15] MEDS ORDERED: PHENYLEPHRINE 100MCG/ML 5ML SYR ONE (09:13)
--- NOTE | 2022-12-15 09:14 | GI REPORT ---
Patient Name: Cristhian May Procedure Date: 12/15/2022 8:34 AM Date of : 1940 Admit Type: Inpatient Age: 82 Gender: Male Attending MD: Kiran Lucia MD, Procedure: Upper GI endoscopy Providers: Kiran Lucia MD Referring MD: Maribeth Ruvalcaba Do Indications: Dysphagia Medicines: Propofol per Anesthesia Complications: No immediate complications. Estimated Blood Loss: Estimated blood loss: none. Procedure: Pre-Anesthesia Assessment: - Prior to the procedure, a History and Physical was performed, and patient medications, allergies and sensitivities were reviewed. The patient's tolerance of previous anesthesia was reviewed. - The risks and benefits of the procedure and the sedation options and risks were discussed with the patient. All questions were answered and informed consent was obtained. - Patient identification and proposed procedure were verified prior to the procedure by the physician and the nurse. The procedure was verified in the procedure room. - Pre-procedure physical examination revealed no contraindications to sedation. After obtaining informed consent, the endoscope was passed under direct vision. Throughout the procedure, the patient's blood pressure, pulse, and oxygen saturations were monitored continuously. The Endoscope was introduced through the mouth, and advanced to the second part of duodenum. The upper GI endoscopy was accomplished without difficulty. The patient tolerated the procedure well. Findings: No appreciable esophageal motility was noted. In addition, a hypertonic lower esophageal sphincter was found. There was mild resistance to endoscope advancement into the stomach. The Z-line was regular. The gastroesophageal junction and cardia were normal on retroflexed view. A guidewire was placed and the scope was withdrawn. Dilation was performed with a Savary dilator with no resistance at 18 mm. The dilation site was examined and showed no bleeding, mucosal tear or perforation. The Z-line was regular and was found 43 cm from the incisors. The entire examined stomach was normal. The duodenal bulb and second portion of the duodenum were normal. Impression: - The examination was suspicious for achalasia. Dilated to 18 mm. - Z-line regular, 43 cm from the incisors. - Normal stomach. - Normal duodenal bulb and second portion of the duodenum. - No specimens collected. Recommendation: - Soft diet. - Perform routine esophageal manometry at the next available appointment as OP. - Recall GI if needed. Kiran Lucia MD 12/15/2022 9:13:55 AM This report has been signed electronically. Note Initiated On: 12/15/2022 8:34 AM Number of Addenda: 0 I attest to the content of the Intraoperative Record and orders documented therein, exceptions below {[id number]}
[2022-12-15] MEDS: METOPROLOL TARTRATE 25 MG TAB PO SCH ×2 (09:50→20:47)
[2022-12-15] MEDS: TAMSULOSIN HCL 0.4 MG CAP PO SCH (09:50)
[2022-12-15] MEDS: dilTIAZem HCL 180 MG CAPCR PO SCH (09:50)
[2022-12-15] MEDS: ESCITALOPRAM OXALATE 20 MG TAB PO SCH (09:50)
[2022-12-15] MEDS: TORSEMIDE 10 MG TAB PO SCH (09:50)
[2022-12-15] MEDS: ASPIRIN 81 MG ECTAB PO SCH (09:50)
[2022-12-15] MEDS: POTASSIUM CHLORIDE 10 MEQ TABCR PO SCH (09:56)
[2022-12-15] MEDS: PANTOprazole 40 MG in SYRINGE 0 ML IV SCH ×2 (10:07→20:48)
[2022-12-15] MEDS: HYDROCODONE/ACETAMOPHEN 5/325MG TAB PO PRN ×2 (10:10→16:54)
[2022-12-15] MEDS: FLUTICASONE/VILANTEROL 200/25MCG 14 PUFFS/INHALER INH SCH (12:53)
--- NOTE | 2022-12-15 13:30 | Pharmacy Report ---
Pharmacy PK ABX Note - Date of Service December 15, 2022 - Assessment and Plan Assessment 12/15: * Reviewed vancomycin level, level predicted to acheive and AUC/JIM of 538, continue current regimen. Blood cultures no growth to date 12/13: * 82 year old M receiving vancomycin and zosyn for treatment of pulmonary infection. MRSA nasal (+), blood cultures pending. Renal function stable. Day #4 of antimicrobial therapy. Plan Vancomycin * Maintenance dose: vancomycin 1500mg IV q24h * Regimen is predicted to achieve target AUC/JIM of 400-600 mg/L.hr * Repeat vancomycin level to be ordered as clinically indicated * Daily serum creatinine ordered Pharmacy will continue to follow and will adjust dose/frequency as necessary. Thank you. Pharmacy has transitioned to AUC monitoring for vancomycin. AUC/JIM is the preferred PK/PD target and is associated with decreased risk of nephrotoxicity compared to traditional trough targets.
--- NOTE | 2022-12-15 13:46 | Anesthesiology Progress Note ---
Date of Service December 15, 2022 Anesthesia Post Procedure Vital Signs Vital Signs: Temp Pulse Pulse Pulse Resp BP BP 12/15/22 12:34 36.7 C 99 H 20 107/67 12/15/22 09:33 98 H 18 146/76 H 12/15/22 09:21 94 H 18 130/74 12/15/22 09:06 93 H 20 104/41 L 12/15/22 09:00 12/15/22 09:00 99 H 12/15/22 08:27 37 C 100 H 18 140/82 12/15/22 07:33 36.7 C 106 H 20 147/82 H 12/15/22 07:18 107 H 22 12/15/22 03:00 36.4 C L 91 H 16 116/63 12/14/22 23:00 36.6 C 74 18 109/63 12/14/22 20:00 12/14/22 19:46 18 12/14/22 19:00 36.6 C 93 H 16 103/65 12/14/22 15:36 84 12/14/22 15:24 36.7 C 90 16 104/63 Pulse Ox O2 Del Method O2 Flow Rate 12/15/22 12:34 97 Nasal Cannula 3 12/15/22 09:33 100 Oxymask 8 12/15/22 09:21 100 Oxymask 8 12/15/22 09:06 100 Oxymask 10 12/15/22 09:00 Nasal Cannula 3 12/15/22 09:00 12/15/22 08:27 97 Oxymask 8 12/15/22 07:33 94 Room Air 12/15/22 07:18 95 Nasal Cannula 3 12/15/22 03:00 95 Nasal Cannula 3 12/14/22 23:00 96 Nasal Cannula 3 12/14/22 20:00 Nasal Cannula 3 12/14/22 19:46 95 Nasal Cannula 4 12/14/22 19:00 96 Nasal Cannula 4 12/14/22 15:36 12/14/22 15:24 Nasal Cannula 4 Pain Intensity Left Hip: Pain Intensity: 1 Back: Pain Intensity: 8 Bilateral Leg: Pain Intensity: 9 Buttock: Pain Intensity: 8 Transfer of Care Handoff Completed per policy Notes Mental Status: alert / awake / arousable and participated in evaluation Patient Amnestic to Procedure: Yes Nausea / Vomiting: adequately controlled Pain: adequately controlled Airway Patency, RR, SpO2: stable & adequate BP & HR: stable & adequate Hydration State: stable & adequate Anesthetic Complications: no major complications apparent
[2022-12-15] MEDS: AMOXICILLIN/CLAVULANATE 875 MG TAB PO SCH (18:18)
[2022-12-15] MEDS: MIRTAZAPINE TAB 15 MG TAB PO SCH (20:47)
[2022-12-15] MEDS: guaiFENesin 600 MG TABCR PO SCH (20:47)
[2022-12-15] MEDS: DOXYCYCLINE HYCLATE 100 MG CAP PO SCH (20:47)
[2022-12-15] MEDS: OLANZapine 5 MG TABLET PO SCH (20:48)
[2022-12-15] MEDS: MAGNESIUM OXIDE 400 MG TAB PO SCH (20:48)
[2022-12-15] MEDS: DOCUSATE SODIUM/SENNA 50/8.6MG TAB PO SCH (20:48)
[2022-12-15] MEDS: rOPINIRole HCL 1 MG TABLET PO SCH (20:48)
[2022-12-16] MEDS: HYDROCODONE/ACETAMOPHEN 5/325MG TAB PO PRN ×5 (01:45→20:29)
[2022-12-16] MEDS: HYDROmorphone INJ 1 MG/ML SYRINGE IV PRN ×3 (05:37→22:41)
[2022-12-16] MEDS: LEVALBUTEROL 1.25 MG/3 ML NEB NEB SCH ×2 (07:08→19:36)
[2022-12-16] MEDS: IPRATROPIUM BROMIDE NEB SOLN 0.02% 2.5 ML VIAL INH SCH ×2 (07:08→19:36)
[2022-12-16] MEDS: SODIUM CHLOR 7% 4 ML NEB INH SCH ×2 (07:08→19:36)
[2022-12-16] MEDS: FLUTICASONE/VILANTEROL 200/25MCG 14 PUFFS/INHALER INH SCH (08:19)
[2022-12-16] MEDS: AMOXICILLIN/CLAVULANATE 875 MG TAB PO SCH ×2 (08:19→16:26)
[2022-12-16] MEDS: TAMSULOSIN HCL 0.4 MG CAP PO SCH (08:19)
[2022-12-16] MEDS: guaiFENesin 600 MG TABCR PO SCH ×2 (08:20→20:27)
[2022-12-16] MEDS: ESCITALOPRAM OXALATE 20 MG TAB PO SCH (08:20)
[2022-12-16] MEDS: SPIRONOLACTONE 12.5 MG TAB PO SCH (08:20)
[2022-12-16] MEDS: TORSEMIDE 10 MG TAB PO SCH (08:20)
[2022-12-16] MEDS: ASPIRIN 81 MG ECTAB PO SCH (08:21)
[2022-12-16] MEDS: dilTIAZem HCL 180 MG CAPCR PO SCH (08:21)
[2022-12-16 08:22] LABS: Creatinine Clr Calc Pharmacy 48.3 ml/min; Est GFR (African American) 53.4 ml/min; Est GFR (Non-African American) 46.1 ml/min
[2022-12-16] MEDS: DOXYCYCLINE HYCLATE 100 MG CAP PO SCH ×2 (08:22→20:36)
[2022-12-16] MEDS: METOPROLOL TARTRATE 25 MG TAB PO SCH ×2 (08:22→20:36)
[2022-12-16] MEDS: POTASSIUM CHLORIDE 10 MEQ TABCR PO SCH (08:26)
[2022-12-16] MEDS: PANTOprazole 40 MG in SYRINGE 0 ML IV SCH ×2 (08:26→20:36)
--- NOTE | 2022-12-16 10:20 | Hospitalist Progress Note ---
Date of Service December 16, 2022 Assessment & Plan (1) Post-op pneumonia: (2) Dysphagia: (3) Food impaction of esophagus: (4) Thoracic spinal stenosis: (5) Lumbar spinal stenosis: (6) Weakness: (7) Chronic respiratory failure: (8) Chronic atrial fibrillation: (9) Acute kidney injury superimposed on CKD: (10) Chronic kidney disease (CKD), stage III (moderate): (11) Hypothyroidism: (12) Chronic heart failure with preserved ejection fraction: (13) Tachy-noni syndrome: (14) HTN (hypertension): (15) Hyperlipidemia: (16) Anxiety and depression: (17) Restless leg syndrome: (18) Abnormal CT of the abdomen: (19) Sleep apnea: Plan: Mr. May is an 82-year-old male with PMH chronic atrial fibrillation chronically anticoagulated on Eliquis, tachybradycardia syndrome s/p pacemaker, HLD, chronic respiratory failure on chronic oxygen, chronic CHF preserved EF, hypothyroidism, CKD III, depression, anxiety, RLS, RUDY presented to ER with C/O progressive BLE weakness. Patient's course complicated by continued weakness prompting lumbar (12/03) and thoracic decompression (12/09) Patient is improving slowly. #Post-op pneumonia: CT reading reveals atelectasis vs pneumonia. Not significantly improved from a clinical standpoint, but leukocytosis has improved. Cont current therapy, completed antibiotic course -Continue aspiration precautions #Dysphagia, c/f achalasia #Food impaction -EGD this morning revealed no appreciable esophageal motility. A hypertonic lower esophageal sphincter was found which was dilated. The stomach and duodenal areas were normal and no specimens were collected. The examination was suspicious for achalasia. -Routine esophageal manometry at the next available appointment as outpatient was recommended. -No further GI work-up as inpatient was needed. Advance diet as tolerated to soft diet. -Discontinue PPI upon discharge #Thoracic spinal stenosis: #Lumbar spinal stenosis: #Weakness CT head: No acute intracranial findings CT lumbar Spine: IMPRESSION:1. No acute fracture or subluxation.2. Levoscoliosis with multilevel degenerative changes of the above resulting in associated central canal and neural foraminal narrowing. Lumbar spine MRI with levoscoliosis with multilevel degenerative changes of the above resulting in associated central canal and neural foraminal narrowing. -S/p lumbar decompression bilaterally facetectomies and foraminotomies L2-L3, L3-L4 and L4-5 and posterior spinal fusion L3-L4 L4-[address] Esteves on 12/03 -S/p decompression fusion T10-T12 by Dr. Esteves on 12/09 Activity and wound care orders as per ortho Pain control with bowel regimen PT/OT, plan for discharge to rehab #Acute blood loss anemia In setting of post-of blood loss, dilutional factors Asymptomatic Hb stable and no bleeding. Continue to monitor H/H, transfuse blood products PRN, currently stable #Chronic hypoxic respiratory failure: #Chronic bronchitis, bronchiectasis On chronic 2-3 L oxygen via nasal cannula Continue oxygen supplementation Continue home inhalers, nebulizers #Chronic atrial fibrillation Eliquis on hold postop from initial surgery and given potential need for add'l surgery, was transitioned to full dose Lovenox on 12/07 Eliquis remains on hold now -per ortho may need to take back to the OR for I&D of post op seroma. Cont metoprolol tartrate, diltiazem #Acute kidney injury superimposed on CKD stage III *resolved Creatinine peaked to 1.7 on 12/05 -in the setting of surgery, n.p.o. status Baseline creatinine low 1s --> resolved Continue to monitor renal functions #Hypothyroidism: Chronic, stable Continue levothyroxine #Chronic heart failure with preserved ejection fraction: #Tachy-noni syndrome s/p pacemaker chronic, stable -Continue torsemide 40mg daily -Continue Metoprolol -Continue spironolactone 12.5mg MWF #HTN (hypertension): Continue diltiazem, metoprolol tartrate chronic, stable #Hyperlipidemia: Continue atorvastatin # Anxiety and depression: chronic, stable. Continue Lexapro #Restless leg syndrome: chronic, stable. 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 change from previous, per d/w radiology today) Also showing indeterminate sclerotic lesion within the right iliac wing measuring up to 3 cm. A metastatic lesion could have this appearance. Significant in setting of prostate cancer, currently receiving Lupron inj Q3M (due in Jan 2023), has f/u with Dr. Preciado 01/07 Dr. Preciado aware of results, pushed imaging for further determination of treatment, need for bone scan This was also discussed w patient and family together in the room. Follow up with oncology as outpatient to guide treatment plan. # Sleep apnea: BiPAP at bedtime DVT PROPHYLAXIS TEDs/SCDs while not receiving anticoagulation Dispo -uncertain at this time, cont hospitalization pending clinical improvement. I spent a total 60 minutes coordinating, documenting, and providing care for this patient excluding time spent in the performance of separately billed services Admission and Anticipated Discharge Date Admission Date: December 02, 2022 Subjective NAEO Patient states he is more "hopeful" given some progress with PT/OT yesterday Patient endorses "sensitivity" in legs, but states pain is better controlled Denies any new concerns at this time Review of Systems Review of Systems: All systems reviewed & are unremarkable except as noted in Subjective Physical Exam Constitutional: WD/WN, vitals as above Respiratory: bibasilar crackles, scattered wheezing, no distress Cardiovascular: irregularly irregular Gastrointestinal (Abdomen): normal bowel sounds, soft, nontender, no hepatosplenomegaly Results & Data Results & Data Vital Signs (Past 12 Hours) Vital Signs Temp Pulse Pulse Resp BP Pulse Ox O2 Del Method 12/16/22 07:42 36.4 C L 85 20 117/72 100 Nebulizer 12/16/22 07:10 89 12 99 Nasal Cannula 12/16/22 03:00 36.5 C 80 18 121/72 99 Nasal Cannula 12/15/22 23:24 84 12/15/22 23:00 36.5 C 78 16 119/75 99 Nasal Cannula O2 Flow Rate 12/16/22 07:42 12/16/22 07:10 3 12/16/22 03:00 12/15/22 23:24 12/15/22 23:00 Laboratory Results BMP 12/16/22 06:58 Creatinine 1.41 H Medications Administered Home Medications Medication Instructions Recorded Confirmed Last Taken albuterol sulfate 90 mcg/actuation 2 puff inhalation BID 08/03/22 11/30/22 08/19/22 04:00 aerosol inhaler apixaban 2.5 mg tablet (Eliquis) 2.5 mg PO BID 08/03/22 11/30/22 11/29/22 aspirin 81 mg capsule 81 mg PO QAM 0611/30/22 08/19/22 04:00 atorvastatin 20 mg tablet (Lipitor) 20 mg PO HS 08/03/22 11/30/22 08/18/22 21:00 calcium carbonate 600 mg-vitamin 1 tab PO QAM 08/03/22 11/30/22 08/18/22 21:00 D3 10 mcg (400 unit) tablet (Calcium 600 + D(3)) cyclosporine 0.05 % eye drops in a 1 drp ophthalmic (eye) Q12H PRN 08/03/22 11/30/22 Unknown dropperette (Restasis) Dry Eye(S) diltiazem HCl 180 mg 180 mg PO QAM 08/03/22 11/30/22 11/29/22 capsule,extended release 24 hr escitalopram oxalate 20 mg tablet 20 mg PO QAM 08/03/22 11/30/22 11/29/22 (Lexapro) fluticasone 250 mcg-salmeterol 50 1 inh inhalation BID 08/03/22 11/30/22 08/19/22 04:00 mcg/dose blistr powdr for inhalation (Wixela Inhub) guaifenesin 600 mg tablet, 600 mg PO BID 08/03/22 11/30/22 08/19/22 04:00 extended release 12 hr (Mucinex) levothyroxine 75 mcg tablet 75 mcg PO QAM 08/03/22 11/30/22 11/30/22 lutein 20 mg tablet 20 mg PO HS 08/03/22 11/30/22 08/14/22 magnesium 200 mg tablet 400 mg PO HS 08/03/22 11/30/22 08/14/22 metoprolol tartrate 25 mg tablet 25 mg PO BID 08/03/22 11/30/22 11/29/22 mirtazapine 30 mg tablet (Remeron) 30 mg PO HS 08/03/22 11/30/22 11/29/22 multivitamin 1 tab PO QAM 08/03/22 11/30/22 08/14/22 olanzapine 5 mg tablet (Zyprexa) 5 mg PO HS 08/03/22 11/30/22 11/29/22 potassium chloride 10 mEq 10 meq PO QAM 08/03/22 11/30/22 11/29/22 capsule,extended release ropinirole 1 mg tablet 1 mg PO HS 08/03/22 11/30/22 11/29/22 spironolactone 25 mg tablet 12.5 mg PO UD 08/03/22 11/30/22 11/27/22 tamsulosin 0.4 mg capsule 0.4 mg PO QAM 08/03/22 11/30/22 08/19/22 04:00 acetaminophen 500 mg tablet 1,000 mg (2 x 500 mg) PO TID pain 08/17/22 11/30/22 08/16/22 (Tylenol Extra Strength) 30 days #180 tabs sodium chloride 3 % for 3 ml inhalation BID 11/30/22 11/30/22 Unknown nebulization torsemide 20 mg tablet 40 mg PO DAILY 11/30/22 11/30/22 11/29/22 Active Medications Generic Name Dose Route Start Last Admin Trade Name Freq PRN Reason Stop Dose Admin Hydrocodone Bitart/Acetaminophen 1 tab 12/13/22 11:30 12/16/22 08:26 Hydrocodone/Acetamophen 5/325mg Tab PO 12/17/22 17:12 1 tab Q4H PRN Administration Pain & Pre PT Amoxicillin/Clavulanate Potassium 1 tab 12/15/22 17:00 12/16/22 08:19 Amoxicillin/Clavulanate 875 Mg Tab PO 12/22/22 16:59 1 tab BIDM IRMA Administration Protocol Aspirin 81 mg 12/01/22 09:00 12/16/22 08:21 Aspirin 81 Mg Ectab PO 12/31/22 08:59 81 mg QAM IRMA Administration Atorvastatin Calcium 20 mg 11/30/22 21:00 12/12/22 20:48 Atorvastatin 20 Mg Tab PO 12/30/22 20:59 20 mg HS IRMA Administration Bisacodyl 10 mg 12/03/22 17:13 12/10/22 12:26 Bisacodyl 10 Mg Supp [place] 01/02/23 17:12 10 mg DAILY PRN Administration Constipation Calcium/Vitamin D 1 tab 12/01/22 09:00 12/13/22 09:35 Calcium 600mg + Vit D 400 Iu Tab PO 12/31/22 08:59 1 tab QAM IRMA Administration Diltiazem HCl 180 mg 12/01/22 09:00 12/16/22 08:21 Diltiazem Hcl 180 Mg Capcr PO 12/31/22 08:59 180 mg QAM IRMA Administration Doxycycline Hyclate 100 mg 12/15/22 21:00 12/16/22 08:22 Doxycycline Hyclate 100 Mg Cap PO 12/22/22 20:59 100 mg BID IRMA Administration Escitalopram Oxalate 20 mg 12/01/22 09:00 12/16/22 08:20 Escitalopram Oxalate 20 Mg Tab PO 12/31/22 08:59 20 mg QAM IRMA Administration Fluticasone/Vilanterol 1 puffs 12/01/22 09:00 12/16/22 08:19 Fluticasone/Vilanterol 200/25mcg 14 Puffs/Inhaler INH 12/31/22 08:59 1 puffs DAILY IRMA Administration Guaifenesin 600 mg 11/30/22 21:00 12/16/22 08:20 Guaifenesin 600 Mg Tabcr PO 12/30/22 20:59 600 mg BID IRMA Administration Hydromorphone HCl 0.5 mg 12/03/22 17:13 12/15/22 05:16 Hydromorphone Inj 0.5 Mg/0.5 Ml Syr IV 12/17/22 17:12 0.5 mg Q3H PRN Administration MODERATE Pain (Scale 4,5,6) & Pre PT Hydromorphone HCl 1 mg 12/03/22 17:13 12/16/22 05:37 Hydromorphone Inj 1 Mg/Ml Syringe IV 12/17/22 17:12 1 mg Q3H PRN Administration SEVERE Pain (Scale 7,8,9,10) Pantoprazole Sodium 40 mg/ 10 mls @ 5 mls/min 12/13/22 21:00 12/16/22 08:26 Syringe IV 01/12/23 20:59 5 mls/min BID IRMA Administration Ipratropium Zirconia 0.5 mg 12/14/22 19:45 12/16/22 07:08 Ipratropium Zirconia Neb Soln 0.02% 2.5 Ml Vial INH 01/13/23 19:44 0.5 mg BIDR IRMA Administration Levalbuterol HCl 1.25 mg 12/13/22 19:45 12/16/22 07:08 Levalbuterol 1.25 Mg/3 Ml Neb NEB 01/12/23 19:44 1.25 mg BIDR IRMA Administration Lorazepam 0.5 mg 12/03/22 17:13 12/13/22 18:35 Lorazepam 0.5 Mg Tab PO 01/02/23 17:12 0.5 mg Q8H PRN Administration Sedation/Anxiety Magnesium Oxide 400 mg 11/30/22 21:00 12/15/22 20:48 Magnesium Oxide 400 Mg Tab PO 12/30/22 20:59 400 mg HS IRMA Administration Metoprolol Tartrate 25 mg 11/30/22 21:00 12/16/22 08:22 Metoprolol Tartrate 25 Mg Tab PO 12/30/22 20:59 25 mg BID IRMA Administration Mirtazapine 30 mg 11/30/22 21:00 12/15/22 20:47 Mirtazapine Tab 15 Mg Tab PO 12/30/22 20:59 30 mg HS IRMA Administration Olanzapine 5 mg 11/30/22 21:00 12/15/22 20:48 Olanzapine 5 Mg Tablet PO 12/30/22 20:59 5 mg HS IRMA Administration Potassium Chloride 10 meq 12/01/22 09:00 12/16/22 08:26 Potassium Chloride 10 Meq Tabcr PO 12/31/22 08:59 10 meq QAM IRMA Administration Ropinirole HCl 1 mg 11/30/22 21:00 12/15/22 20:48 Ropinirole Hcl 1 Mg Tablet PO 12/30/22 20:59 1 mg HS IRMA Administration Senna/Docusate Sodium 2 tab 12/03/22 21:00 12/15/22 20:48 Docusate Sodium/Senna 50/8.6mg Tab PO 01/02/23 20:59 2 tab HS IRMA Administration Sodium Chloride 4 ml 11/30/22 19:00 12/16/22 07:08 Sodium Chlor 7% 4 Ml Neb INH 12/30/22 18:59 4 ml BIDR IRMA Administration Spironolactone 12.5 mg 12/11/22 09:00 12/16/22 08:20 Spironolactone 12.5 Mg Tab PO 01/10/23 08:59 12.5 mg [id number] IRMA Administration Tamsulosin HCl 0.4 mg 12/01/22 09:00 12/16/22 08:19 Tamsulosin Hcl 0.4 Mg Cap PO 12/31/22 08:59 0.4 mg QAM IRMA Administration Torsemide 40 mg 12/11/22 09:00 12/16/22 08:20 Torsemide 10 Mg Tab PO 01/10/23 08:59 40 mg QAM IRMA Administration Tramadol HCl 50 - 100 mg 12/03/22 17:13 12/13/22 09:33 Tramadol Hcl 50 Mg Tablet PO 01/02/23 17:12 100 mg Q4H PRN Administration Moderate-Severe pain & Pre PT
[2022-12-16] MEDS: DOCUSATE SODIUM/SENNA 50/8.6MG TAB PO SCH (20:27)
[2022-12-16] MEDS: MIRTAZAPINE TAB 15 MG TAB PO SCH (20:27)
[2022-12-16] MEDS: MAGNESIUM OXIDE 400 MG TAB PO SCH (20:27)
[2022-12-16] MEDS: OLANZapine 5 MG TABLET PO SCH (20:27)
[2022-12-16] MEDS: ATORVASTATIN 20 MG TAB PO SCH (20:34)
[2022-12-16] MEDS: rOPINIRole HCL 1 MG TABLET PO SCH (20:34)
[2022-12-17] MEDS: HYDROCODONE/ACETAMOPHEN 5/325MG TAB PO PRN ×3 (05:28→16:20)
[2022-12-17] MEDS: LEVALBUTEROL 1.25 MG/3 ML NEB NEB SCH ×2 (07:19→19:01)
[2022-12-17] MEDS: SODIUM CHLOR 7% 4 ML NEB INH SCH ×2 (07:19→19:01)
[2022-12-17] MEDS: IPRATROPIUM BROMIDE NEB SOLN 0.02% 2.5 ML VIAL INH SCH ×2 (07:19→19:01)
[2022-12-17 07:38] LABS: BUN Creatinine Ratio 20.8 (10-20); Calcium 9.1 mg/dl (8.6-10.3); Creatinine Clr Calc Pharmacy 45.4 ml/min; Est GFR (African American) 49.9 ml/min; Est GFR (Non-African American) 43.1 ml/min; Magnesium 1.9 mg/dl (1.7-2.4); Phosphorus 3.3 mg/dl (2.5-4.9); Potassium 3.4 mmol/L (3.5-5.1)
[2022-12-17] MEDS: traMADol HCL 50 MG TABLET PO PRN ×3 (08:22→21:32)
[2022-12-17] MEDS: DOXYCYCLINE HYCLATE 100 MG CAP PO SCH ×2 (08:22→21:34)
[2022-12-17] MEDS: guaiFENesin 600 MG TABCR PO SCH ×2 (08:23→21:33)
[2022-12-17] MEDS: METOPROLOL TARTRATE 25 MG TAB PO SCH ×2 (08:23→21:35)
[2022-12-17] MEDS: FLUTICASONE/VILANTEROL 200/25MCG 14 PUFFS/INHALER INH SCH (08:23)
[2022-12-17] MEDS: AMOXICILLIN/CLAVULANATE 875 MG TAB PO SCH ×2 (08:23→16:20)
[2022-12-17] MEDS ORDERED: POTASSIUM CHLORIDE CRTAB 20 MEQ TABCR PO SCH (09:00)
[2022-12-17] MEDS: PANTOprazole 40 MG in SYRINGE 0 ML IV SCH ×2 (09:09→21:33)
[2022-12-17] MEDS: TAMSULOSIN HCL 0.4 MG CAP PO SCH (09:10)
[2022-12-17] MEDS: ASPIRIN 81 MG ECTAB PO SCH (09:10)
[2022-12-17] MEDS: ESCITALOPRAM OXALATE 20 MG TAB PO SCH (09:11)
[2022-12-17] MEDS: dilTIAZem HCL 180 MG CAPCR PO SCH (09:11)
[2022-12-17] MEDS: TORSEMIDE 10 MG TAB PO SCH (09:11)
[2022-12-17] MEDS ORDERED: CYCLOBENZAPRINE HCL 10 MG TAB PO STA (09:32)
--- NOTE | 2022-12-17 10:28 | Orthopedic Progress Note ---
Date of Service December 17, 2022 Assessment & Plan (1) Myelopathy concurrent with and due to spinal stenosis of thoracic region: Plan: From an orthopedic standpoint I would continue to recommend physical therapy occupational therapy as tolerated. Rehab when medically stable. Admission and Anticipated Discharge Date Admission Date: December 02, 2022 Subjective Patient states his back pain is controlled. He gets buttock pain lying in bed. He states is relieved with sitting. He was able to stand for short period of time with therapy to yesterday. Physical Exam Physical Exam: Patient is currently in bed. He is regional plantarflexion dorsiflexion bilaterally. Sensory is intact. Results & Data Vital Signs (Past 12 Hours) Vital Signs Temp Pulse Pulse Resp BP Pulse Ox O2 Del Method 12/17/22 07:52 97 H 12/17/22 07:50 36.5 C 97 H 20 133/77 95 Nasal Cannula 12/17/22 07:32 Nasal Cannula 12/17/22 07:21 93 H 15 94 Nasal Cannula 12/17/22 04:16 36.9 C 103 H 20 119/65 91 Nasal Cannula 12/16/22 22:51 84 O2 Flow Rate 12/17/22 07:52 12/17/22 07:50 2.0 12/17/22 07:32 3 12/17/22 07:21 1.5 12/17/22 04:16 1.5 12/16/22 22:51 Queries Orthopedic Spine Acute Posthemorrhagic Anemia: Yes
--- NOTE | 2022-12-17 15:48 | Hospitalist Progress Note ---
Date of Service December 17, 2022 Assessment & Plan (1) Post-op pneumonia: (2) Dysphagia: (3) Food impaction of esophagus: (4) Thoracic spinal stenosis: (5) Lumbar spinal stenosis: (6) Weakness: (7) Chronic respiratory failure: (8) Chronic atrial fibrillation: (9) Acute kidney injury superimposed on CKD: (10) Chronic kidney disease (CKD), stage III (moderate): (11) Hypothyroidism: (12) Chronic heart failure with preserved ejection fraction: (13) Tachy-noni syndrome: (14) HTN (hypertension): (15) Hyperlipidemia: (16) Anxiety and depression: (17) Restless leg syndrome: (18) Abnormal CT of the abdomen: (19) Sleep apnea: Plan: Mr. May is an 82-year-old male with PMH chronic atrial fibrillation chronically anticoagulated on Eliquis, tachybradycardia syndrome s/p pacemaker, HLD, chronic respiratory failure on chronic oxygen, chronic CHF preserved EF, hypothyroidism, CKD III, depression, anxiety, RLS, RUDY presented to ER with C/O progressive BLE weakness. Patient's course complicated by continued weakness prompting lumbar (12/03) and thoracic decompression (12/09) Patient is improving slowly. Evaluated postoperatively by Orthopedics and no indication for further surgical intervention #Post-op pneumonia: CT reading reveals atelectasis vs pneumonia. Not significantly improved from a clinical standpoint, but leukocytosis has improved. Cont current therapy, completed antibiotic course -Continue aspiration precautions #Dysphagia, c/f achalasia #Food impaction -EGD this morning revealed no appreciable esophageal motility. A hypertonic lower esophageal sphincter was found which was dilated. The stomach and duodenal areas were normal and no specimens were collected. The examination was suspicious for achalasia. -Routine esophageal manometry at the next available appointment as outpatient was recommended. -No further GI work-up as inpatient was needed. Advance diet as tolerated to soft diet. -Discontinue PPI upon discharge #Thoracic spinal stenosis: #Lumbar spinal stenosis: #Weakness CT head: No acute intracranial findings CT lumbar Spine: IMPRESSION:1. No acute fracture or subluxation.2. Levoscoliosis with multilevel degenerative changes of the above resulting in associated central canal and neural foraminal narrowing. Lumbar spine MRI with levoscoliosis with multilevel degenerative changes of the above resulting in associated central canal and neural foraminal narrowing. -S/p lumbar decompression bilaterally facetectomies and foraminotomies L2-L3, L3-L4 and L4-5 and posterior spinal fusion L3-L4 L4-[address] Esteves on 12/03 -S/p decompression fusion T10-T12 by Dr. Esteves on 12/09 Activity and wound care orders as per ortho Pain control with bowel regimen PT/OT, plan for discharge to rehab #Acute blood loss anemia In setting of post-of blood loss, dilutional factors Asymptomatic Hb stable and no bleeding. Continue to monitor H/H, transfuse blood products PRN, currently stable #Chronic hypoxic respiratory failure: #Chronic bronchitis, bronchiectasis On chronic 2-3 L oxygen via nasal cannula Continue oxygen supplementation Continue home inhalers, nebulizers #Chronic atrial fibrillation Eliquis on hold postop from initial surgery and given potential need for add'l surgery, was transitioned to full dose Lovenox on 12/07 Eliquis remains on hold now -per ortho may need to take back to the OR for I&D of post op seroma. Cont metoprolol tartrate, diltiazem #Acute kidney injury superimposed on CKD stage III *resolved Creatinine peaked to 1.7 on 12/05 -in the setting of surgery, n.p.o. status Baseline creatinine low 1s --> resolved Continue to monitor renal functions #Hypothyroidism: Chronic, stable Continue levothyroxine #Chronic heart failure with preserved ejection fraction: #Tachy-noni syndrome s/p pacemaker chronic, stable -Continue torsemide 40mg daily -Continue Metoprolol -Continue spironolactone 12.5mg MWF #HTN (hypertension): Continue diltiazem, metoprolol tartrate chronic, stable #Hyperlipidemia: Continue atorvastatin # Anxiety and depression: chronic, stable. Continue Lexapro #Restless leg syndrome: chronic, stable. 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 change from previous, per d/w radiology today) Also showing indeterminate sclerotic lesion within the right iliac wing m easuring up to 3 cm. A metastatic lesion could have this appearance. Significant in setting of prostate cancer, currently receiving Lupron inj Q3M (due in Jan 2023), has f/u with Dr. Preciado 01/07 Dr. Preciado aware of results, pushed imaging for further determination of treatment, need for bone scan This was also discussed w patient and family together in the room. Follow up with oncology as outpatient to guide treatment plan. # Sleep apnea: BiPAP at bedtime DVT PROPHYLAXIS TEDs/SCDs while not receiving anticoagulation Dispo -uncertain at this time, cont hospitalization pending clinical improvement. I spent a total 45 minutes coordinating, documenting, and providing care for this patient excluding time spent in the performance of separately billed services Admission and Anticipated Discharge Date Admission Date: December 02, 2022 Subjective NAEO Moving more with PT/OT, endorsing pain in buttock that is relieved when standing denies chest pain, palpitations or other acute concerns. Review of Systems Review of Systems: All systems reviewed & are unremarkable except as noted in Subjective Physical Exam Constitutional: WD/WN, vitals as above Respiratory: normal respiratory effort, lungs clear to auscultation Cardiovascular: irregularly irregular Results & Data Results & Data Vital Signs (Past 12 Hours) Vital Signs Temp Pulse Pulse Resp BP Pulse Ox O2 Del Method 12/17/22 15:39 74 12/17/22 10:36 36.9 C 82 18 124/76 97 Nasal Cannula 12/17/22 07:52 97 H 12/17/22 07:50 36.5 C 97 H 20 133/77 95 Nasal Cannula 12/17/22 07:32 Nasal Cannula 12/17/22 07:21 93 H 15 94 Nasal Cannula 12/17/22 04:16 36.9 C 103 H 20 119/65 91 Nasal Cannula O2 Flow Rate 12/17/22 15:39 12/17/22 10:36 2.0 12/17/22 07:52 12/17/22 07:50 2.0 12/17/22 07:32 3 12/17/22 07:21 1.5 12/17/22 04:16 1.5 Laboratory Results BMP 12/17/22 06:52 Sodium 140 Potassium 3.4 L Chloride 98 Carbon Dioxide 35 H BUN 31 H Creatinine 1.49 H Glucose 108 H Calcium 9.1 Medications Administered Home Medications Medication Instructions Recorded Confirmed Last Taken albuterol sulfate 90 mcg/actuation 2 puff inhalation BID 08/03/22 11/30/22 08/19/22 04:00 aerosol inhaler apixaban 2.5 mg tablet (Eliquis) 2.5 mg PO BID 08/03/22 11/30/22 11/29/22 aspirin 81 mg capsule 81 mg PO QAM 08/03/22 11/30/22 08/19/22 04:00 atorvastatin 20 mg tablet (Lipitor) 20 mg PO 08/03/22 11/30/22 08/18/22 21:00 calcium carbonate 600 mg-vitamin 1 tab PO QAM 08/03/22 11/30/22 08/18/22 21:00 D3 10 mcg (400 unit) tablet (Calcium 600 + D(3)) cyclosporine 0.05 % eye drops in a 1 drp ophthalmic (eye) Q12H PRN 08/03/22 11/30/22 Unknown dropperette (Restasis) Dry Eye(S) diltiazem HCl 180 mg 180 mg PO QAM 08/03/22 11/30/22 11/29/22 capsule,extended release 24 hr escitalopram oxalate 20 mg tablet 20 mg PO QAM 08/03/22 11/30/22 11/29/22 (Lexapro) fluticasone 250 mcg-salmeterol 50 1 inh inhalation BID 08/03/22 11/30/22 08/19/22 04:00 mcg/dose blistr powdr for inhalation (Wixela Inhub) guaifenesin 600 mg tablet, 600 mg PO BID 08/03/22 11/30/22 08/19/22 04:00 extended release 12 hr (Mucinex) levothyroxine 75 mcg tablet 75 mcg PO QAM 08/03/22 11/30/22 11/30/22 lutein 20 mg tablet 20 mg PO 08/03/22 11/30/22 08/14/22 magnesium 200 mg tablet 400 mg PO 08/03/22 11/30/22 08/14/22 metoprolol tartrate 25 mg tablet 25 mg PO BID 08/03/22 11/30/22 11/29/22 mirtazapine 30 mg tablet (Remeron) 30 mg PO 08/03/22 11/30/22 11/29/22 multivitamin 1 tab PO QAM 08/03/22 11/30/22 08/14/22 olanzapine 5 mg tablet (Zyprexa) 5 mg PO HS 08/03/22 11/30/22 11/29/22 potassium chloride 10 mEq 10 meq PO QAM 08/03/22 11/30/22 11/29/22 capsule,extended release ropinirole 1 mg tablet 1 mg PO HS 08/03/22 11/30/22 11/29/22 spironolactone 25 mg tablet 12.5 mg PO UD 08/03/22 11/30/22 11/27/22 tamsulosin 0.4 mg capsule 0.4 mg PO QAM 08/03/22 11/30/22 08/19/22 04:00 acetaminophen 500 mg tablet 1,000 mg (2 x 500 mg) PO TID pain 08/17/22 11/30/22 08/16/22 (Tylenol Extra Strength) 30 days #180 tabs sodium chloride 3 % for 3 ml inhalation BID 11/30/22 11/30/22 Unknown nebulization torsemide 20 mg tablet 40 mg PO DAILY 11/30/22 11/30/22 11/29/22 Active Medications Generic Name Dose Route Start Last Admin Trade Name Freq PRN Reason Stop Dose Admin Hydrocodone Bitart/Acetaminophen 1 tab 12/13/22 11:30 12/17/22 12:19 Hydrocodone/Acetamophen 5/325mg Tab PO 12/17/22 17:12 1 tab Q4H PRN Administration Pain & Pre PT Amoxicillin/Clavulanate Potassium 1 tab 12/15/22 17:00 12/17/22 08:23 Amoxicillin/Clavulanate 875 Mg Tab PO 12/22/22 16:59 1 tab BIDM IRMA Administration Protocol Aspirin 81 mg 12/01/22 09:00 12/17/22 09:10 Aspirin 81 Mg Ectab PO 12/31/22 08:59 81 mg QAM IRMA Administration Atorvastatin Calcium 20 mg 11/30/22 21:00 12/16/22 20:34 Atorvastatin 20 Mg Tab PO 12/30/22 20:59 Not Given HS [facility] Bisacodyl 10 mg 12/03/22 17:13 12/10/22 12:26 Bisacodyl 10 Mg Supp DC 01/02/23 17:12 10 mg DAILY PRN Administration Constipation Calcium/Vitamin D 1 tab 12/01/22 09:00 12/13/22 09:35 Calcium 600mg + Vit D 400 Iu Tab PO 12/31/22 08:59 1 tab QAM IRMA Administration Diltiazem HCl 180 mg 12/01/22 09:00 12/17/22 09:11 Diltiazem Hcl 180 Mg Capcr PO 12/31/22 08:59 180 mg QAM IRMA Administration Doxycycline Hyclate 100 mg 12/15/22 21:00 12/17/22 08:22 Doxycycline Hyclate 100 Mg Cap PO 12/22/22 20:59 100 mg BID IRMA Administration Escitalopram Oxalate 20 mg 12/01/22 09:00 12/17/22 09:11 Escitalopram Oxalate 20 Mg Tab PO 12/31/22 08:59 20 mg QAM IRMA Administration Fluticasone/Vilanterol 1 puffs 12/01/22 09:00 12/17/22 08:23 Fluticasone/Vilanterol 200/25mcg 14 Puffs/Inhaler INH 12/31/22 08:59 1 puffs DAILY IRMA Administration Guaifenesin 600 mg 11/30/22 21:00 12/17/22 08:23 Guaifenesin 600 Mg Tabcr PO 12/30/22 20:59 600 mg BID IRMA Administration Hydromorphone HCl 0.5 mg 12/03/22 17:13 12/15/22 05:16 Hydromorphone Inj 0.5 Mg/0.5 Ml Syr IV 12/17/22 17:12 0.5 mg Q3H PRN Administration MODERATE Pain (Scale 4,5,6) & Pre PT Hydromorphone HCl 1 mg 12/03/22 17:13 12/16/22 22:41 Hydromorphone Inj 1 Mg/Ml Syringe IV 12/17/22 17:12 1 mg Q3H PRN Administration SEVERE Pain (Scale 7,8,9,10) Pantoprazole Sodium 40 mg/ 10 mls @ 5 mls/min 12/13/22 21:00 12/17/22 09:09 Syringe IV 01/12/23 20:59 5 mls/min BID IRMA Administration Ipratropium Aguilar 0.5 mg 12/14/22 19:45 12/17/22 07:19 Ipratropium [place] Neb Soln 0.02% 2.5 Ml Vial INH 01/13/23 19:44 0.5 mg BIDR IRMA Administration Levalbuterol HCl 1.25 mg 12/13/22 19:45 12/17/22 07:19 Levalbuterol 1.25 Mg/3 Ml Neb NEB 01/12/23 19:44 1.25 mg BIDR IRMA Administration Lorazepam 0.5 mg 12/03/22 17:13 12/13/22 18:35 Lorazepam 0.5 Mg Tab PO 01/02/23 17:12 0.5 mg Q8H PRN Administration Sedation/Anxiety Magnesium Oxide 400 mg 11/30/22 21:00 12/16/22 20:27 Magnesium Oxide 400 Mg Tab PO 12/30/22 20:59 400 mg HS IRMA Administration Metoprolol Tartrate 25 mg 11/30/22 21:00 12/17/22 08:23 Metoprolol Tartrate 25 Mg Tab PO 12/30/22 20:59 25 mg BID IRMA Administration Mirtazapine 30 mg 11/30/22 21:00 12/16/22 20:27 Mirtazapine Tab 15 Mg Tab PO 12/30/22 20:59 30 mg HS IRMA Administration Olanzapine 5 mg 11/30/22 21:00 12/16/22 20:27 Olanzapine 5 Mg Tablet PO 12/30/22 20:59 5 mg HS IRMA Administration Potassium Chloride 40 meq 12/17/22 09:00 12/17/22 09:09 Potassium Chloride Crtab 20 Meq Tabcr PO 01/16/23 08:59 40 meq QAM IRMA Administration Ropinirole HCl 1 mg 11/30/22 21:00 12/16/22 20:34 Ropinirole Hcl 1 Mg Tablet PO 12/30/22 20:59 1 mg HS IRMA Administration Senna/Docusate Sodium 2 tab 12/03/22 21:00 12/16/22 20:27 Docusate Sodium/Senna 50/8.6mg Tab PO 01/02/23 20:59 2 tab HS IRMA Administration Sodium Chloride 4 ml 11/30/22 19:00 12/17/22 07:19 Sodium Chlor 7% 4 Ml Neb INH 12/30/22 18:59 4 ml BIDR IRMA Administration Spironolactone 12.5 mg 12/11/22 09:00 12/16/22 08:20 Spironolactone 12.5 Mg Tab PO 01/10/23 08:59 12.5 mg [id number] IRMA Administration Tamsulosin HCl 0.4 mg 12/01/22 09:00 12/17/22 09:10 Tamsulosin Hcl 0.4 Mg Cap PO 12/31/22 08:59 0.4 mg QAM IRMA Administration Torsemide 40 mg 12/11/22 09:00 12/17/22 09:11 Torsemide 10 Mg Tab PO 01/10/23 08:59 40 mg QAM IRMA Administration Tramadol HCl 50 - 100 mg 12/03/22 17:13 12/17/22 08:22 Tramadol Hcl 50 Mg Tablet PO 01/02/23 17:12 100 mg Q4H PRN Administration Moderate-Severe pain & Pre PT
[2022-12-17 16:29] LABS: Hematocrit (blood only) 30.3 % (42.0-52.0); Hemoglobin 9.4 g/dl (14.0-18.0); Mean Corpuscular Hemoglobin 29.8 pg (25.0-34.0); Mean Corpuscular Volume 96.2 fL (80.0-100.0); Platelet Count 224 K/uL (130-400); RDW Coefficient of Variation 16.5 % (11.5-14.5); RDW Standard Deviation 56.8 fL (36.4-46.3); Red Blood Count 3.15 M/uL (4.70-6.10); White Blood Count 13.29 K/ul (4.8-10.8)
[2022-12-17] MEDS: ATORVASTATIN 20 MG TAB PO SCH (21:33)
[2022-12-17] MEDS: MIRTAZAPINE TAB 15 MG TAB PO SCH (21:34)
[2022-12-17] MEDS: MAGNESIUM OXIDE 400 MG TAB PO SCH (21:34)
[2022-12-17] MEDS: OLANZapine 5 MG TABLET PO SCH (21:35)
[2022-12-17] MEDS: rOPINIRole HCL 1 MG TABLET PO SCH (21:35)
[2022-12-17] MEDS: DOCUSATE SODIUM/SENNA 50/8.6MG TAB PO SCH (21:45)
[2022-12-18] MEDS: traMADol HCL 50 MG TABLET PO PRN ×2 (03:31→07:52)
[2022-12-18] MEDS: HYDROCODONE/ACETAMOPHEN 5/325MG TAB PO PRN ×2 (06:04→12:06)
[2022-12-18] MEDS ORDERED: LEVOTHYROXINE SODIUM 75 MCG TABLET PO SCH (06:30)
[2022-12-18] MEDS: LEVALBUTEROL 1.25 MG/3 ML NEB NEB SCH ×2 (07:13→19:44)
[2022-12-18] MEDS: SODIUM CHLOR 7% 4 ML NEB INH SCH ×2 (07:13→19:45)
[2022-12-18] MEDS: IPRATROPIUM BROMIDE NEB SOLN 0.02% 2.5 ML VIAL INH SCH ×2 (07:13→19:45)
[2022-12-18 07:31] LABS: Hematocrit (blood only) 27.7 % (42.0-52.0); Hemoglobin 8.8 g/dl (14.0-18.0); Mean Corpuscular Hemoglobin 29.7 pg (25.0-34.0); Mean Corpuscular Hgb Conc 31.8 g/dL (32.0-36.0); Mean Corpuscular Volume 93.6 fL (80.0-100.0); Mean Platelet Volume 10.2 fL (9.4-12.4); Platelet Count 213 K/uL (130-400); RDW Coefficient of Variation 16.6 % (11.5-14.5); RDW Standard Deviation 55.5 fL (36.4-46.3); Red Blood Count 2.96 M/uL (4.70-6.10); White Blood Count 10.59 K/ul (4.8-10.8)
[2022-12-18 07:49] LABS: BUN Creatinine Ratio 21.4 (10-20); Creatinine Clr Calc Pharmacy 51.4 ml/min; Est GFR (African American) 58.4 ml/min; Est GFR (Non-African American) 50.3 ml/min; Magnesium 1.9 mg/dl (1.7-2.4); Phosphorus 3.2 mg/dl (2.5-4.9); Potassium 3.4 mmol/L (3.5-5.1)
[2022-12-18 08:04] LABS: Thyroid Stimulating Hormone 6.274 uIu/ml (0.300-4.500)
--- NOTE | 2022-12-18 08:24 | Hospitalist Progress Note ---
Date of Service December 18, 2022 Assessment & Plan (1) Post-op pneumonia: (2) Dysphagia: (3) Food impaction of esophagus: (4) Thoracic spinal stenosis: (5) Lumbar spinal stenosis: (6) Weakness: (7) Chronic respiratory failure: (8) Chronic atrial fibrillation: (9) Acute kidney injury superimposed on CKD: (10) Chronic kidney disease (CKD), stage III (moderate): (11) Hypothyroidism: (12) Chronic heart failure with preserved ejection fraction: (13) Tachy-noni syndrome: (14) HTN (hypertension): (15) Hyperlipidemia: (16) Anxiety and depression: (17) Restless leg syndrome: (18) Abnormal CT of the abdomen: (19) Sleep apnea: Plan: Mr. May is an 82-year-old male with PMH chronic atrial fibrillation chronically anticoagulated on Eliquis, tachybradycardia syndrome s/p pacemaker, HLD, chronic respiratory failure on chronic oxygen, chronic CHF preserved EF, hypothyroidism, CKD III, depression, anxiety, RLS, RUDY presented to ER with C/O progressive BLE weakness. Patient's course complicated by continued weakness prompting lumbar (12/03) and thoracic decompression (12/09) Patient is improving slowly. Evaluated postoperatively by Orthopedics and no indication for further surgical intervention #Post-op pneumonia: CT reading reveals atelectasis vs pneumonia. Not significantly improved from a clinical standpoint, but leukocytosis has improved. no further antibiotics at this time -Continue aspiration precautions #Dysphagia, c/f achalasia #Food impaction -EGD this morning revealed no appreciable esophageal motility. A hypertonic lower esophageal sphincter was found which was dilated. The stomach and duodenal areas were normal and no specimens were collected. The examination was suspicious for achalasia. -Routine esophageal manometry at the next available appointment as outpatient was recommended. -No further GI work-up as inpatient was needed. Continue soft diet. #Thoracic spinal stenosis: #Lumbar spinal stenosis: #Weakness CT head: No acute intracranial findings CT lumbar Spine: IMPRESSION:1. No acute fracture or subluxation.2. Levoscoliosis with multilevel degenerative changes of the above resulting in associated central canal and neural foraminal narrowing. Lumbar spine MRI with levoscoliosis with multilevel degenerative changes of the above resulting in associated central canal and neural foraminal narrowing. -S/p lumbar decompression bilaterally facetectomies and foraminotomies L2-L3, L3-L4 and L4-5 and posterior spinal fusion L3-L4 L4-[address] Esteves on 12/03 -S/p decompression fusion T10-T12 by Dr. Esteves on 12/09 Activity and wound care orders as per ortho Pain control with bowel regimen -Scheduled tylenol and flexeril for baseline pain/spasm control with oxy prn 1-2 tabs based upon severity when discharging PT/OT, plan for discharge to rehab today #Acute blood loss anemia In setting of post-of blood loss, dilutional factors Asymptomatic, 8-9 post operatively Hb stable and no bleeding. Continue to monitor H/H, transfuse blood products PRN, currently stable #Chronic hypoxic respiratory failure: #Chronic bronchitis, bronchiectasis On chronic 2-3 L oxygen via nasal cannula Continue oxygen supplementation Continue home inhalers, nebulizers #Chronic atrial fibrillation Resume eliquis 2.5mg BID with plans for OP cbc in 1 week Cont metoprolol tartrate, diltiazem #Acute kidney injury superimposed on CKD stage III *resolved Creatinine peaked to 1.7 on 12/05 -in the setting of surgery, n.p.o. status Baseline creatinine low 1s --> resolved Continue to monitor renal functions #Hypothyroidism: Chronic, stable Continue levothyroxine #Chronic heart failure with preserved ejection fraction: #Tachy-noni syndrome s/p pacemaker chronic, stable -Continue torsemide 40mg daily -Continue Metoprolol -Continue spironolactone 12.5mg MWF -continue potassium supplementation #HTN (hypertension): Continue diltiazem, metoprolol tartrate chronic, stable #Hyperlipidemia: Continue atorvastatin # Anxiety and depression: chronic, stable. Continue Lexapro #Restless leg syndrome: chronic, stable. 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 change from previous, per d/w radiology today) Also showing indeterminate sclerotic lesion within the right iliac wing measuring up to 3 cm. A metastatic lesion could have this appearance. Significant in setting of prostate cancer, currently receiving Lupron inj Q3M (due in Jan 2023), has f/u with Dr. Preciado 01/07 Dr. Preciado aware of results, pushed imaging for further determination of treatment, need for bone scan This was also discussed w patient and family together in the room. Follow up with oncology as outpatient to guide treatment plan. # Sleep apnea: BiPAP at bedtime DVT PROPHYLAXIS eliquis 2.5mg bid Dispo possible discharge this evening I spent a total 45 minutes coordinating, documenting, and providing care for this patient excluding time spent in the performance of separately billed services Admission and Anticipated Discharge Date Admission Date: December 02, 2022 Subjective Initially not feeling well, but reports much better after taking morning meds. Motivated to discharge this evening if able with plans for more regimented pain control Denies any new acute symptoms at this time Review of Systems Review of Systems: All systems reviewed & are unremarkable except as noted in Subjective Physical Exam Constitutional: WD/WN, vitals as above Respiratory: normal respiratory effort, lungs clear to auscultation Cardiovascular: irregularly irregular Gastrointestinal (Abdomen): normal bowel sounds, soft, nontender, no hepatosplenomegaly Results & Data Results & Data Vital Signs (Past 12 Hours) Vital Signs Temp Pulse Pulse Pulse Resp BP BP 12/18/22 07:31 36.0 C L 84 18 119/70 12/18/22 07:14 90 18 12/18/22 03:45 36.8 C 72 16 117/75 12/17/22 23:34 36.5 C 80 20 106/69 12/17/22 23:07 84 Pulse Ox O2 Del Method O2 Flow Rate 12/18/22 07:31 100 Aerosol Mask 12/18/22 07:14 97 Nasal Cannula 3 12/18/22 03:45 97 Nasal Cannula 3.0 12/17/22 23:34 95 Nasal Cannula 3 12/17/22 23:07 Laboratory Results Short CBC 12/17/22 12/18/22 Range/Units 16:12 06:58 WBC 13.29 H 10.59 (4.8-10.8) K/ul Hgb 9.4 L 8.8 L (14.0-18.0) g/dl Hct 30.3 L 27.7 L (42.0-52.0) % Plt Count 224 213 (130-400) K/uL BMP 12/18/22 06:58 Sodium 140 Potassium 3.4 L Chloride 98 Carbon Dioxide 35 H BUN 28 H Creatinine 1.31 Glucose 101 H Calcium 9.0 Medications Administered Home Medications Medication Instructions Recorded Confirmed Last Taken albuterol sulfate 90 mcg/actuation 2 puff inhalation BID 08/03/22 11/30/22 08/19/22 04:00 aerosol inhaler apixaban 2.5 mg tablet (Eliquis) 2.5 mg PO BID 08/03/22 11/30/22 11/29/22 aspirin 81 mg capsule 81 mg PO QAM 08/03/22 11/30/22 08/19/22 04:00 atorvastatin 20 mg tablet (Lipitor) 20 mg PO HS 08/03/22 11/30/22 08/18/22 21:00 calcium carbonate 600 mg-vitamin 1 tab PO QAM 08/03/22 11/30/22 08/18/22 21:00 D3 10 mcg (400 unit) tablet (Calcium 600 + D(3)) cyclosporine 0.05 % eye drops in a 1 drp ophthalmic (eye) Q12H PRN 08/03/22 11/30/22 Unknown dropperette (Restasis) Dry Eye(S) diltiazem HCl 180 mg 180 mg PO QAM 08/03/22 11/30/22 11/29/22 capsule,extended release 24 hr escitalopram oxalate 20 mg tablet 20 mg PO QAM 08/03/22 11/30/22 11/29/22 (Lexapro) fluticasone 250 mcg-salmeterol 50 1 inh inhalation BID 08/03/22 11/30/22 08/19/22 04:00 mcg/dose blistr powdr for inhalation (Wixela Inhub) guaifenesin 600 mg tablet, 600 mg PO BID 08/03/22 11/30/22 08/19/22 04:00 extended release 12 hr (Mucinex) levothyroxine 75 mcg tablet 75 mcg PO QAM 08/03/22 11/30/22 11/30/22 lutein 20 mg tablet 20 mg PO 08/03/22 11/30/22 08/14/22 magnesium 200 mg tablet 400 mg PO 08/03/22 11/30/22 08/14/22 metoprolol tartrate 25 mg tablet 25 mg PO BID 08/03/22 11/30/22 11/29/22 mirtazapine 30 mg tablet (Remeron) 30 mg PO 08/03/22 11/30/22 11/29/22 multivitamin 1 tab PO QAM 08/03/22 11/30/22 08/14/22 olanzapine 5 mg tablet (Zyprexa) 5 mg PO HS 08/03/22 11/30/22 11/29/22 ropinirole 1 mg tablet 1 mg PO HS 08/03/22 11/30/22 11/29/22 spironolactone 25 mg tablet 12.5 mg PO UD 08/03/22 11/30/22 11/27/22 tamsulosin 0.4 mg capsule 0.4 mg PO QAM 08/03/22 11/30/22 08/19/22 04:00 acetaminophen 500 mg tablet 1,000 mg (2 x 500 mg) PO TID pain 08/17/22 11/30/22 08/16/22 (Tylenol Extra Strength) 30 days #180 tabs sodium chloride 3 % for 3 ml inhalation BID 11/30/22 11/30/22 Unknown nebulization torsemide 20 mg tablet 40 mg PO DAILY 11/30/22 11/30/22 11/29/22 cyclobenzaprine 5 mg tablet 5 mg PO TID 30 days #90 tabs 12/18/22 Unknown hydrocodone 5 mg-acetaminophen 325 See Rx Instructions .Route 12/18/22 Unknown mg tablet .COMPLEX PRN pain #30 tabs potassium chloride 10 mEq 40 meq (4 x 10 mEq) PO QAM 30 days 12/18/22 11/30/22 11/29/22 capsule,extended release #0 caps Active Medications Generic Name Dose Route Start Last Admin Trade Name Alex PRN Reason Stop Dose Admin Acetaminophen 1,000 mg 12/18/22 12:30 12/18/22 12:38 Acetaminophen 500 Mg Tab PO 01/17/23 12:29 1,000 mg TID IRMA Administration Hydrocodone Bitart/Acetaminophen 1 tab 12/17/22 19:29 12/18/22 12:06 Hydrocodone/Acetamophen 5/325mg Tab PO 12/31/22 19:28 1 tab Q6H PRN Administration Pain Amoxicillin/Clavulanate Potassium 1 tab 12/15/22 17:00 12/18/22 08:41 Amoxicillin/Clavulanate 875 Mg Tab PO 12/22/22 16:59 1 tab BIDM IRMA Administration Protocol Apixaban 2.5 mg 12/18/22 09:00 12/18/22 08:41 Apixaban 2.5 Mg Tab PO 01/17/23 08:59 2.5 mg BID IRMA Administration Aspirin 81 mg 12/01/22 09:00 12/18/22 08:41 Aspirin 81 Mg Ectab PO 12/31/22 08:59 81 mg QAM IRMA Administration Atorvastatin Calcium 20 mg 11/30/22 21:00 12/17/22 21:33 Atorvastatin 20 Mg Tab PO 12/30/22 20:59 20 mg HS IRMA Administration Bisacodyl 10 mg 12/03/22 17:13 12/10/22 12:26 Bisacodyl 10 Mg Supp ND 01/02/23 17:12 10 mg DAILY PRN Administration Constipation Calcium/Vitamin D 1 tab 12/01/22 09:00 12/13/22 09:35 Calcium 600mg + Vit D 400 Iu Tab PO 12/31/22 08:59 1 tab QAM IRMA Administration Cyclobenzaprine HCl 5 mg 12/18/22 12:45 12/18/22 13:38 Cyclobenzaprine Hcl 5 Mg Tab PO 01/17/23 12:44 Not Given TID IRMA Diltiazem HCl 180 mg 12/01/22 09:00 12/18/22 08:41 Diltiazem Hcl 180 Mg Capcr PO 12/31/22 08:59 180 mg QAM IRMA Administration Doxycycline Hyclate 100 mg 12/15/22 21:00 12/18/22 08:40 Doxycycline Hyclate 100 Mg Cap PO 12/22/22 20:59 100 mg BID IRMA Administration Escitalopram Oxalate 20 mg 12/01/22 09:00 12/18/22 08:40 Escitalopram Oxalate 20 Mg Tab PO 12/31/22 08:59 20 mg QAM IRMA Administration Fluticasone/Vilanterol 1 puffs 12/01/22 09:00 12/18/22 08:41 Fluticasone/Vilanterol 200/25mcg 14 Puffs/Inhaler INH 12/31/22 08:59 1 puffs DAILY IRMA Administration Guaifenesin 600 mg 11/30/22 21:00 12/18/22 08:40 Guaifenesin 600 Mg Tabcr PO 12/30/22 20:59 600 mg BID IRMA Administration Pantoprazole Sodium 40 mg/ 10 mls @ 5 mls/min 12/13/22 21:00 12/18/22 08:40 Syringe IV 01/12/23 20:59 5 mls/min BID IRMA Administration Ipratropium [place] 0.5 mg 12/14/22 19:45 12/18/22 07:13 Ipratropium [place] Neb Soln 0.02% 2.5 Ml Vial INH 01/13/23 19:44 0.5 mg BIDR IRMA Administration Levalbuterol HCl 1.25 mg 12/13/22 19:45 12/18/22 07:13 Levalbuterol 1.25 Mg/3 Ml Neb NEB 01/12/23 19:44 1.25 mg BIDR IRMA Administration Levothyroxine Sodium 75 mcg 12/18/22 06:30 12/18/22 06:13 Levothyroxine Sodium 75 Mcg Tablet PO 01/17/23 06:29 75 mcg DAILYBB IRMA Administration Lorazepam 0.5 mg 12/03/22 17:13 12/13/22 18:35 Lorazepam 0.5 Mg Tab PO 01/02/23 17:12 0.5 mg Q8H PRN Administration Sedation/Anxiety Magnesium Oxide 400 mg 11/30/22 21:00 12/17/22 21:34 Magnesium Oxide 400 Mg Tab PO 12/30/22 20:59 400 mg HS IRMA Administration Metoprolol Tartrate 25 mg 11/30/22 21:00 12/18/22 08:40 Metoprolol Tartrate 25 Mg Tab PO 12/30/22 20:59 25 mg BID IRMA Administration Mirtazapine 30 mg 11/30/22 21:00 12/17/22 21:34 Mirtazapine Tab 15 Mg Tab PO 12/30/22 20:59 30 mg HS IRMA Administration Olanzapine 5 mg 11/30/22 21:00 12/17/22 21:35 Olanzapine 5 Mg Tablet PO 12/30/22 20:59 5 mg HS IRMA Administration Potassium Chloride 40 meq 12/18/22 09:00 12/18/22 08:39 Potassium Chloride Crtab 20 Meq Tabcr PO 01/17/23 08:59 40 meq BID IRMA Administration Ropinirole HCl 1 mg 11/30/22 21:00 12/17/22 21:35 Ropinirole Hcl 1 Mg Tablet PO 12/30/22 20:59 1 mg HS IRMA Administration Senna/Docusate Sodium 2 tab 12/03/22 21:00 12/17/22 21:45 Docusate Sodium/Senna 50/8.6mg Tab PO 01/02/23 20:59 Not Given HS IRMA Sodium Chloride 4 ml 11/30/22 19:00 12/18/22 07:13 Sodium Chlor 7% 4 Ml Neb INH 12/30/22 18:59 4 ml BIDR IRMA Administration Spironolactone 12.5 mg 12/11/22 09:00 12/18/22 08:38 Spironolactone 12.5 Mg Tab PO 01/10/23 08:59 12.5 mg [id number] IRMA Administration Tamsulosin HCl 0.4 mg 12/01/22 09:00 12/18/22 08:38 Tamsulosin Hcl 0.4 Mg Cap PO 12/31/22 08:59 0.4 mg QAM IRMA Administration Torsemide 40 mg 12/11/22 09:00 12/18/22 08:38 Torsemide 10 Mg Tab PO 01/10/23 08:59 40 mg QAM IRMA Administration
[2022-12-18 08:38] LABS: T4 Free Thyroxine 1.07 ng/dl (0.61-1.60)
[2022-12-18] MEDS: TORSEMIDE 10 MG TAB PO SCH (08:38)
[2022-12-18] MEDS: SPIRONOLACTONE 12.5 MG TAB PO SCH (08:38)
[2022-12-18] MEDS: TAMSULOSIN HCL 0.4 MG CAP PO SCH (08:38)
[2022-12-18] MEDS: ESCITALOPRAM OXALATE 20 MG TAB PO SCH (08:40)
[2022-12-18] MEDS: guaiFENesin 600 MG TABCR PO SCH (08:40)
[2022-12-18] MEDS: PANTOprazole 40 MG in SYRINGE 0 ML IV SCH (08:40)
[2022-12-18] MEDS: METOPROLOL TARTRATE 25 MG TAB PO SCH (08:40)
[2022-12-18] MEDS: DOXYCYCLINE HYCLATE 100 MG CAP PO SCH (08:40)
[2022-12-18] MEDS: dilTIAZem HCL 180 MG CAPCR PO SCH (08:41)
[2022-12-18] MEDS: AMOXICILLIN/CLAVULANATE 875 MG TAB PO SCH ×2 (08:41→16:53)
[2022-12-18] MEDS: FLUTICASONE/VILANTEROL 200/25MCG 14 PUFFS/INHALER INH SCH (08:41)
[2022-12-18] MEDS: ASPIRIN 81 MG ECTAB PO SCH (08:41)
[2022-12-18] MEDS ORDERED: APIXABAN 2.5 MG TAB PO SCH (09:00)
[2022-12-18] MEDS ORDERED: POTASSIUM CHLORIDE CRTAB 20 MEQ TABCR PO SCH (09:00)
[2022-12-18] MEDS ORDERED: ACETAMINOPHEN 500 MG TAB PO SCH (12:30)
[2022-12-18] MEDS: CYCLOBENZAPRINE HCL 5 MG TAB PO SCH ×2 (13:33→13:38)
[2022-12-18] MEDS ORDERED: POTASSIUM CHLORIDE CRTAB 20 MEQ TABCR PO STA (14:32)
--- NOTE | 2022-12-18 17:50 | Discharge Summary ---
Discharge Summary Date of Service December 18, 2022 Notes For Next Care Provider Medication Changes From Visit -Scheduled tylenol and flexeril Admission HPI Per Admitting Provider Patient is 82-year-old male with PMH chronic atrial fibrillation chronically anticoagulated on Eliquis, tachybradycardia syndrome s/p pacemaker, HLD, chronic respiratory failure on chronic oxygen, chronic CHF preserved EF, hypothyroidism, CKD III, depression, anxiety, RLS, RUDY presented to ER with C/O weakness and fall. History obtained from patient, outpatient chart and inpatient chart review. Patient states uses walker at baseline. States has been having gradual bilateral leg weakness over past 2 months. He reports history of left hip replacement August [address] Witt. He states he has been having home PT since hip replacement. He reports has had a progressive decline over the past several months with increasing leg weakness. Reports legs "jumping". Started with left leg and now is bilateral legs. Also c/o numbness sensation bilateral legs over past couple of months. Denies back pain. Reports last night when he was trying to give dog treat he lost his balance causing him to fall and hit his left knee and left arm. Today was unable to ambulate. EMS had to get patient up to be transported to hospital. He states chronic cough and chronic SOB and feels those are at baseline. Denies fever/chills, diaphoresis, N/V/D/C, WILKES, dizziness, syncope, vision changes, neck pain, CP, palpitations, hemoptysis, sore throat, abdominal pain, extremity edema, rashes, urinary symptoms. Admission Exam Per Admitting Provider Exam notable for elderly man in no distress, nasal cannula, bilateral expiratory rhonchi, jerking movements in both legs [spasms], normal range of movement across ankle and knee. Principal Dx & Hospital Course #1 = Principal Diagnosis (1) Post-op pneumonia: (2) Dysphagia: (3) Food impaction of esophagus: (4) Thoracic spinal stenosis: (5) Lumbar spinal stenosis: (6) Weakness: (7) Chronic respiratory failure: (8) Chronic atrial fibrillation: (9) Acute kidney injury superimposed on CKD: (10) Chronic kidney disease (CKD), stage III (moderate): (11) Hypothyroidism: (12) Chronic heart failure with preserved ejection fraction: (13) Tachy-noni syndrome: (14) HTN (hypertension): (15) Hyperlipidemia: (16) Anxiety and depression: (17) Restless leg syndrome: (18) Abnormal CT of the abdomen: (19) Sleep apnea: Mr. May is an 82-year-old male with PMH chronic atrial fibrillation chronically anticoagulated on Eliquis, tachybradycardia syndrome s/p pacemaker, HLD, chronic respiratory failure on chronic oxygen, chronic CHF preserved EF, hypothyroidism, CKD III, depression, anxiety, RLS, RUDY presented to ER with C/O progressive BLE weakness. Patient's course complicated by continued weakness prompting lumbar (12/03) and thoracic decompression (12/09) Patient is improving slowly. Evaluated postoperatively by Orthopedics and no indication for further surgical intervention #Post-op pneumonia: CT reading reveals atelectasis vs pneumonia. Not significantly improved from a clinical standpoint, but leukocytosis has improved. no further antibiotics at this time -Continue aspiration precautions #Dysphagia, c/f achalasia #Food impaction -EGD this morning revealed no appreciable esophageal motility. A hypertonic lower esophageal sphincter was found which was dilated. The stomach and duodenal areas were normal and no specimens were collected. The examination was suspicious for achalasia. -Routine esophageal manometry at the next available appointment as outpatient was recommended. -No further GI work-up as inpatient was needed. Continue soft diet. #Thoracic spinal stenosis: #Lumbar spinal stenosis: #Weakness CT head: No acute intracranial findings CT lumbar Spine: IMPRESSION:1. No acute fracture or subluxation.2. Levoscoliosis with multilevel degenerative changes of the above resulting in associated central canal and neural foraminal narrowing. Lumbar spine MRI with levoscoliosis with multilevel degenerative changes of the above resulting in associated central canal and neural foraminal narrowing. -S/p lumbar decompression bilaterally facetectomies and foraminotomies L2-L3, L3-L4 and L4-5 and posterior spinal fusion L3-L4 L4-[address] Esteves on 12/03 -S/p decompression fusion T10-T12 by Dr. Esteves on 12/09 Activity and wound care orders as per ortho Pain control with bowel regimen -Scheduled tylenol and flexeril for baseline pain/spasm control with oxy prn 1-2 tabs based upon severity when discharging PT/OT, plan for discharge to rehab today #Acute blood loss anemia In setting of post-of blood loss, dilutional factors Asymptomatic, 8-9 post operatively Hb stable and no bleeding. Continue to monitor H/H, transfuse blood products PRN, currently stable #Chronic hypoxic respiratory failure: #Chronic bronchitis, bronchiectasis On chronic 2-3 L oxygen via nasal cannula Continue oxygen supplementation Continue home inhalers, nebulizers #Chronic atrial fibrillation Resume eliquis 2.5mg BID with plans for OP cbc in 1 week Cont metoprolol tartrate, diltiazem #Acute kidney injury superimposed on CKD stage III *resolved Creatinine peaked to 1.7 on 12/05 -in the setting of surgery, n.p.o. status Baseline creatinine low 1s --> resolved Continue to monitor renal functions #Hypothyroidism: Chronic, stable Continue levothyroxine #Chronic heart failure with preserved ejection fraction: #Tachy-noni syndrome s/p pacemaker chronic, stable -Continue torsemide 40mg daily -Continue Metoprolol -Continue spironolactone 12.5mg MWF -continue potassium supplementation #HTN (hypertension): Continue diltiazem, metoprolol tartrate chronic, stable #Hyperlipidemia: Continue atorvastatin # Anxiety and depression: chronic, stable. Continue Lexapro #Restless leg syndrome: chronic, stable. 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 change from previous, per d/w radiology today) Also showing indeterminate sclerotic lesion within the right iliac wing measuring up to 3 cm. A metastatic lesion could have this appearance. Significant in setting of prostate cancer, currently receiving Lupron inj Q3M (due in Jan 2023), has f/u with Dr. Preciado 01/07 Dr. Preciado aware of results, pushed imaging for further determination of treatment, need for bone scan This was also discussed w patient and family together in the room. Follow up with oncology as outpatient to guide treatment plan. # Sleep apnea: BiPAP at bedtime I spent a total 45 minutes coordinating, documenting, and providing care for this patient excluding time spent in the performance of separately billed services Discharge Exam Constitutional WD/WN, vitals as above Respiratory normal respiratory effort, lungs clear to auscultation Cardiovascular RRR, no murmur, no edema Gastrointestinal (Abdomen) normal bowel sounds, soft, nontender, no hepatosplenomegaly Updated Medication List Medication Instructions Recorded Confirmed Type albuterol sulfate 90 mcg/actuation 2 puff inhalation BID 08/03/22 11/30/22 History aerosol inhaler apixaban 2.5 mg tablet (Eliquis) 2.5 mg PO BID 08/03/22 11/30/22 History aspirin 81 mg capsule 81 mg PO QAM 08/03/22 11/30/22 History atorvastatin 20 mg tablet (Lipitor) 20 mg PO HS 08/03/22 11/30/22 History calcium carbonate 600 mg-vitamin 1 tab PO QAM 08/03/22 11/30/22 History D3 10 mcg (400 unit) tablet (Calcium 600 + D(3)) cyclosporine 0.05 % eye drops in a 1 drp ophthalmic (eye) Q12H PRN 08/03/22 11/30/22 History dropperette (Restasis) Dry Eye(S) diltiazem HCl 180 mg 180 mg PO QAM 08/03/22 11/30/22 History capsule,extended release 24 hr escitalopram oxalate 20 mg tablet 20 mg PO QAM 08/03/22 11/30/22 History (Lexapro) fluticasone 250 mcg-salmeterol 50 1 inh inhalation BID 08/03/22 11/30/22 History mcg/dose blistr powdr for inhalation (Wixela Inhub) guaifenesin 600 mg tablet, 600 mg PO BID 08/03/22 11/30/22 History extended release 12 hr (Mucinex) levothyroxine 75 mcg tablet 75 mcg PO QAM 08/03/22 11/30/22 History lutein 20 mg tablet 20 mg PO HS 08/03/22 11/30/22 History magnesium 200 mg tablet 400 mg PO HS 08/03/22 11/30/22 History metoprolol tartrate 25 mg tablet 25 mg PO BID 08/03/22 11/30/22 History mirtazapine 30 mg tablet (Remeron) 30 mg PO HS 08/03/22 11/30/22 History multivitamin 1 tab PO QAM 08/03/22 11/30/22 History olanzapine 5 mg tablet (Zyprexa) 5 mg PO HS 08/03/22 11/30/22 History ropinirole 1 mg tablet 1 mg PO HS 08/03/22 11/30/22 History spironolactone 25 mg tablet 12.5 mg PO UD 08/03/22 11/30/22 History tamsulosin 0.4 mg capsule 0.4 mg PO QAM 08/03/22 11/30/22 History acetaminophen 500 mg tablet 1,000 mg (2 x 500 mg) PO TID pain 08/17/22 11/30/22 Rx (Tylenol Extra Strength) 30 days #180 tabs sodium chloride 3 % for 3 ml inhalation BID 11/30/22 11/30/22 History nebulization torsemide 20 mg tablet 40 mg PO DAILY 11/30/22 11/30/22 History cyclobenzaprine 5 mg tablet 5 mg PO TID 30 days #90 tabs 12/18/22 Rx hydrocodone 5 mg-acetaminophen 325 See Rx Instructions .Route 12/18/22 Rx mg tablet .COMPLEX PRN pain #30 tabs potassium chloride 10 mEq 40 meq (4 x 10 mEq) PO QAM 30 days 12/18/22 11/30/22 Rx capsule,extended release #0 caps Hospital Stay Data Consultations 11/30/22 15:12 ED Decision to Admit Stat 12/01/22 11:08 Consult Orthopedic Spine Surgery Routine 12/03/22 07:00 Consult Anesthesiology Routine 12/13/22 18:58 Consult Gastroenterology Routine Procedures Performed Operation Date: 12/15/22 16:30 Actual Procedures p EGD Lindsay - Kiran Lucia MD Diagnostic Imagining Performed 11/30/22 13:04 CT head/brain wo con Stat 11/30/22 16:20 CT lumbar spine wo con Urgent 12/02/22 00:00 MR lumbar spine wo con Routine 12/03/22 11:55 FL lumbar spine 2-3V Routine 12/07/22 07:56 MR thoracic spine wo con Routine 12/09/22 13:45 FL thoracic spine 2V Routine 12/09/22 20:44 CT Abd and Pelvis [CT abd pelvis wo con] Stat 12/12/22 11:25 CT chest diagnostic wo con Urgent Pending Results Patient Have Any Pending Studies at Discharge: No Discharge Instructions Given to Patient (Per Discharging Provider) ACTIVITY RECOMMENDATIONS: SELF CARE INSTRUCTIONS AFTER THORACIC/LUMBAR FUSIONS 1. You may walk to your tolerance. It is good exercise for your legs and back. Expect some back and intermittent leg aches and pains. 2. You may perform "counter-top" level activities (make a sandwich, sabrina with a project, etc.). 3. No bending or lifting of more than 10 pounds or back twisting of any nature (roll like a log when turning in bed). 4. You may ride in a car for 20-30 minutes at a time. No driving until after your first visit with your doctor. 5. Frequent changes of position and restricting sitting to 30 minutes at a time will help limit the amount of back spasms and stiffness you may experience. 6. You may discontinue the use of ambulatory aids (cane, crutches, etc.) once your strength and confidence allow. 7. You may interventional neuroradiologist the shower and let water strike your incision when you arrive home at least once daily. Do not take a tub bath, sit in a hot tub or go into a swimming pool until after your first recheck in the office. SPECIAL CARE INSTRUCTIONS: VERY IMPORTANT TO READ AND REVIEW A. Your surgical incision has been closed with a cosmetic suture under the skin that will dissolve in about 6 weeks. In 14 days, you can use a pair of clean scissors and cut the suture that is left outside of the skin at the ends of your incision. 1. The small skin tapes can be removed 7 days after surgery if they have not fallen off by that point. 2. You may keep the wound open to air as much as possible to promote healing after post-op day number 5 unless told otherwise by your doctor. 3. If you think the wound looks like it is becoming infected (redness or worsening drainage) and/or you are experiencing fever, chill or worsening back pain and muscle spasms, contact the office so that we may evaluate you as soon as possible. B. Complications are uncommon, but please contact us if you have any signs or symptoms of: 1. wound infection (fever higher than 102.5 degrees F, redness, separation of wound, drainage, or increasing pain from the incision) 2. blood clots in legs (pain, swelling, redness and warmth in legs) 3. urinary tract infection (fever higher than 102.5 degrees F, burning upon urination or increased frequency of urination) 4. nerve problems (inability to walk on your toes or heels, numbness, loss of bowel or bladder control) 5. any other symptoms that concern you C. Please call the office at if you have any concerns or questions about your operation or recovery. D. No smoking! Smoking drastically decreases the chance of a solid fusion. E. Do not take any anti-inflammatory medications (Indocin, Advil, Motrin, Aspirin, Naprosyn, etc.) as these may inhibit the chance of a solid fusion. Tylenol is okay to take for pain. MANAGING PAIN AFTER SPINAL SURGERY 1. Narcotic medication is intended for short-term use and will be provided for surgical pain. Surgical pain usually lasts for a period of 4-6 weeks. Narcotic medication includes Percocet, Vicodin, Darvocet, Tylenol #3 or Lortab. 2. Longer-term pain is more appropriately treated with non-narcotic medication such as Tylenol ES. 3. Muscle spasm is not appropriately treated with narcotics. Muscle relaxers such as Soma, Flexeril or Skelaxin can be used along with Tylenol ES. 4. Remember that we all live with some "aches and pains". This is not unusual or uncommon after an injury or as we get older. a. Back pain is expected and may include muscle spasms for 4 to 6 weeks after surgery. The pain should gradually improve. If the pain worsens for no apparent reason, please contact the office. b. Intermittent leg pain may also be experienced and should not be concerned about unless it worsens for no apparent reason. If so, please contact the office. 5. We will provide appropriate medication within the normal guidelines of their prescribed use. We will also be very cautious and aware of potential abuse and extended duration of patients' medication needs. a. Pain medications are for your comfort and to assist with sleep and rest so that the tissue can heal. They are not provided in order to return to normal activity and should not be used through the day. To do so or worsening pain at night can result from ongoing tissue damage and development of tolerance to the prescribed medicine. 6. Please allow 2-3 days to process refills. Prescriptions will not be mailed but must be picked up at the office. FOLLOW UP VISIT: Keep your scheduled follow-up appointment. Any questions, please call the office at . Total Time Total Time Spent Total Time Spent (In Minutes): 45
== END 2022-12-18 18:00 | DRG 453 ==
LOC: ED 12:32 → EDINP 12:32 → SUATTDRO 15:49 → 3N 17:49 → SUATTDRO 12-02 07:55 → 2S 12-14 12:00

== ENCOUNTER 2023-01-02 22:57 | Inpatient (IN) ==
--- OUTSIDE RECORDS SUMMARY | 2023-01-02 23:04 | External Medical Summary | Summary of Care ---
Author Name Unknown Organization [facility] Address [address] [place] [facility] [place] [address] Phone [phone] Care Team Providers Care Fisher Trammel Net Name Role Phone Anna King MD Primary Care Provide r Reason for Referral * Precert (Within 10 days (routine)) - Authorized Specialty Diagnoses / Procedures Referred By Contnoy t Referred To Contact Diagnoses Esophageal dysphagia Procedures ESOPHAGEAL MOTILITY STUDY Kiran Lucia MD [address] [place] [id number] Referral ID Status Reason Start Date Expiration Date V isits Requested Visits Authorized [id number] Authorized 12/15/[phone] Encounter Details Date Type Department Care Team (Late st Contact Info) Description 12/15/2022 Telephone Gastroenterology, [facility] [address] [place] [address] [address] Kiran Lucia MD [address] [place] [address] Allergies Active Allergy Reactions Criticality Noted Date Comments Niacin 09/20/2002 niaspan-flushing Oxycodone-Acetaminophen 08/18/2014 Propoxyphene Napsylate 03/08/2003 rash documented as of this encounter (statuses as of 12/23/2022) Medications Medication Sig Dispensed Refills Start Date End Date Status ASPIRIN 81 MG PO CHEW One pill by mouth once a day with food 100 5 02/21/2007 Active MULTIVITAMIN/IRON PO TABS 0 07/26/2008 Active GLUCOSAMINE 1500 COMPLEX PO CAPS Take 1 Capsule by mouth in the morning. 0 07/26/2008 Active RESTASIS 0.05 % OP EMUL One drop in affected eye(s) every day 0 08/29/2010 Active CALCIUM 600+D 600-400 MG-UNIT PO TABS 1 tab daily by mouth 0 Active guaiFENesin ER 600 MG Oral Tablet Extended Release 12 Hour Take 1 Tablet by mouth 2 times a day as needed for Cough or Congestion. 0 Active Lutein 20 MG Oral Capsule Take 1 Capsule by mouth in the morning. 0 Active oxygen IN GAS 2 LPM via nasal cannula to maintain sats 90-94% and 3 LPM through CPAP during hours of sleep 1 Each 0 02/11/2021 Active Magnesium 400 MG Oral Capsule Take 1 Capsule by mouth daily at noon. 31 Capsule 5 04/03/2021 Active Escitalopram Oxalate 20 MG Oral Tablet (Lexapro) Take 1 Tablet by mouth in the morning. 31 Tablet 5 04/03/2021 Active OLANZapine 5 MG Oral Tablet (zyPREXA) Take 1 Tablet by mouth at bedtime. 30 Tablet 0 04/07/2021 Active Atorvastatin Calcium 20 MG Oral Tablet (Lipitor)Indications: Dyslipidemia, goal LDL below 100 Take by mouth 1 Tablet before bedtime. 90 Tablet 3 09/24/2021 Active Spironolactone 25 MG Oral Tablet (Aldactone) TAKE BY MOUTH 0.5 TABLETS IN THE MORNING. 45 Tablet 5 11/14/2021 Active Tamsulosin HCl 0.4 MG Oral Capsule (Flomax) Take by mouth 1 Capsule in the morning. 90 Capsule 3 12/10/2021 Active Albuterol Sulfate 0.63 MG/3ML Inhalation Nebulization Solution (Accuneb) Inhale 1 Vial (0.63 mg) via nebulizer in the morning and 1 Vial (0.63 mg) before bedtime. Take am and mid day.. 180 mL 5 01/06/2022 Active Mirtazapine 30 MG Oral Tablet Take 1 Tablet by mouth at bedtime. 1.5 tabs at bedtime 30 Tablet 0 02/19/2022 Active Fluticasone-Salmetero l 250-50 MCG/ACT Inhalation Aerosol Powder Breath Activated (Wixela Inhub)Indications:Ast hma, mild persistent TAKE 1 PUFF BY MOUTH TWICE A DAY 180 Each 1 03/11/2022 Active Torsemide 20 MG Oral Tablet (Demadex)Indications: Heart failure, diastolic, due to HTN (HCC) TAKE BY MOUTH 2 TABLETS IN THE MORNING. 180 Tablet 3 05/16/2022 Active Potassium Chloride ER 10 MEQ Oral Tablet Extended Release TAKE 1 TABLET BY MOUTH EVERY DAY IN THE MORNING 90 Tablet 1 09/07/2022 Active Leuprolide Acetate (3 Month) 22.5 MG Intramuscular Kit (Lupron) Inject 22.5 mg into a large muscle. Every 3 months, given by Urology, depending on his PSA. 0 Active dilTIAZem HCl ER 180 MG Oral Capsule Extended Release 24 Hour TAKE 1 CAPSULE BY MOUTH EVERY DAY IN THE MORNING 90 Capsule 3 09/25/2022 Active Levothyroxine Sodium 75 MCG Oral Tablet (Levoxyl)Indications: Acquired hypothyroidism TAKE 1 TABLET BY MOUTH EVERY DAY (AT LEAST 30 MINUTES PRIOR TO BREAKFAST OR OTHER MEDICATIONS) 90 Tablet 2 09/25/2022 Active Sodium Chloride 3 % Inhalation Nebulization Solution Inhale 3 mL via nebulizer in the morning and 3 mL before bedtime. 180 mL 0 10/30/2022 Active Albuterol Sulfate HFA 108 (90 Base) MCG/ACT Inhalation Aerosol SolutionIndications:R estrictive lung disease INHALE 2 PUFFS THREE TIMES DAILY 18 g 2 11/04/2022 Active Metoprolol Tartrate 25 MG Oral Tablet (Lopressor) Take 1 Tablet by mouth in the morning and 1 Tablet before bedtime. 180 Tablet 1 11/09/2022 Active Apixaban 2.5 MG Oral Tablet (Eliquis) Take 1 Tablet by mouth in the morning and 1 Tablet before bedtime. 180 Tablet 1 11/20/2022 Active rOPINIRole HCl 1 MG Oral TabletIndications:Res tless legs syndrome Take 1 Tablet by mouth at bedtime. With food. For restless legs 90 Tablet 1 11/26/2022 Active documented as of this encounter (statuses as of 12/23/2022) Active Problems Problem Noted Date Diagnosed Date Interstitial pulmonary disease 10/20/2022 Elevated prostate specific antigen (PSA) 023 Chronic respiratory failure with hypoxia and hyp ercapnia 02/13/2022 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 Chronic diastolic congestive heart failure 02/13 Chronic bilateral low back pain with left-sided sciatica 02/13/2022 Hypertensive heart and kidne y disease with chronic diastolic congestive heart failure and stage 3b chronic kidney disease 06/26/2021 Other schizophrenia 05/16/2021 Chronic kidney disease, stage 3b 03/24/2021 Overview: Per CKD protocol Post-traumatic stress disorder, chronic 02/26/19 Atherosclerotic heart diseas e of [place] coronary artery without angina pectoris 02/27/2020 Pancreas cyst 03/30/2019 Asthma, mild persistent 03/30/2019 Undescended left testicle 09/23/2018 TIBURCIO (generalized anxiety disorder) 06/13/2018 History of colon polyps 05/10/2018 History of prostate cancer 05/10/2018 RUDY on CPAP 04/21/2018 Chronic frontal sinusitis 04/02/2018 Bronchiectasis without complication 08/18/2017 Severe episode of recurrent major depressive disorder, with psychotic features 08/18/2017 Presence of cardiac pacemaker 08/17/2017 Tachy-noni syndrome 08/10/2017 Persistent atrial fibrillation 05/26/2016 Restrictive lung disease 01/09/2016 Overview: moderate Acquired hypothyroidism 10/31/2014 Hx of actinic keratosis 07/24/2013 Dyslipidemia, goal LDL below 100 02/28/2010 Gout 11/06/2009 HTN, GOAL BELOW 140/90 12/14/2008 Overview: Modified per HTN Taxonomy. ADVANCE DIRECTIVE INFORMATION 09/22/2004 Overview: Yes, Patient instructed to provide copy of advance directive for provider to review and to be scanned into Electronic Medical Record BPH without obstruction/lower urinary tract symp toms 03/08/2003 ARTHROPATHY NOS-PELVIS 02/14/2003 Hip joint replacement status 01/02/2003 documented as of this encounter (statuses as of 12/23/2022) Resolved Problems Problem Noted Date Diagnosed Date Resolved Date Hypertensive heart and kidne y disease with chronic diastolic congestive heart failure and stage 3a chronic kidney disease 02/13/202202/08 Benign hypertension with sta ge 3b chronic kidney disease 03/24/2021 12/31/2021 Overview: Per CKD protocol Heart failure, diastolic, due to HTN 02/10/2021 12/31/2021 Chronic kidney disease, stage 3a 07/23/2020 03/26/2021 Overview: Per CKD protocol Benign hypertension with sta ge 3a chronic kidney disease 06/18/2020 03/26/2021 Overview: Per CKD protocol Gastro-esophageal reflux dis ease without esophagitis 02/27/2020 02/27/2020 Unspecified psychosis not du e to a substance or known physiological condition 10/26/2019 021 Hypertensive heart disease w ith chronic right-sided congestive heart failure 11/30/2017 Benign hypertension with chr onic kidney disease, stage III 11/30/2017 06/20/2020 Overview: Per CKD protocol Chronic obstructive pulmonary disease 08/18/2017 11/30/2017 RHF (right heart failure) 06/12/2016 Kidney disease, chronic, sta ge III (GFR 30-59 ml/min) 04/23/2014 06/22/2018 Overview: Per CKD protocol #1 Prostate cancer 09/15/2012 05/10/2018 Cancer Staging:Clinical stage from 05/22/2013:Stage IIA(T1c, N0, M0, PSA: Less than 10, Logan 7) - Signed by Jace Means MD on 05/17/2017 Asthma, mild persistent 02/28/201011/09 Asthma with severity to be determined 08/01/2009 02/28/2010 Overview: Per Asthma Taxonomy ICD-10 update of inactive term Polymyalgia rheumatica 06/14/200910/25 Dyslipidemia, goal to be determined 01/15/2009 02/28/2010 Overview: Per Lipid Taxonomy. Dyslipidemia, goal LDL below 160 12/14/2008 01/15/2009 Overview: Per Lipid Taxonomy. EXTRINSIC ASTHMA, UNSPEC 11/21/2002 BENIGN NEOPLASM LG BOWEL 10/17/200103/2018 Overview: hx of multiple hyperplastic polyps [4] removed 3 BENIGN HYPERTENSION 06/09/2000 12/15/19 09 Overview: Modified per HTN Taxonomy. Mixed dyslipidemia 06/09/2000 9 Major depression, single episode 06/09/2000 11/30/2017 Benign prostatic hyperplasia 02/27/2010 Overview: ICD-10 update of inactive term ICD-10 update of inactive term documented as of this encounter (statuses as of 12/23/2022) Immunizations Name Administration Dates Next Due COVID-19 mRNA, LNP-s, No Pre serve, 2-Dose Series (Moderna) 12/01/2020,04/17/2020,03/20/2020 COVID-19, mRNA, LNP-s, PF, B ooster, 100mcg/0.5mg (Moderna) 12/10/2020 Covid-19, Mrna, Lnp-s, Pf, B ivalent, 50 Mcg, IM, 12 yrs and above (Moderna) 12/19/2021 Hepatitis B, 20+ yrs 11/11/2011,06/10/2011,05/12 Pneumococcal Conjugate Vacc, 13 Valent (Prevnar) 04/17/2014 Pneumococcal Polysaccharide PPV23 (Pneumovax) 06/13/2008 SEASONAL INFLUENZA, PF, 6 M & Above, IM , (FLULAVAL or FLUZONE) 11/05/2018,11/30/2017,11/30/2016 Season Influenza, Quad, PF, Adjuvanted, 65+ Yrs, IM (FLUAD) 10/26/2019 Seasonal Influenza, Quadriva lent Hd (Fluzone Hd) 10/20/2022,10/20/2021,10/24/2020 Seasonal Influenza, Quadriva lent, No Preserve, IM 11/07/2015 Seasonal Influenza, Split, I IV3, With Preserve, Inj 10/25/2014,10/17/2013,11/08/2012,11/11,11/25/2010,01/21/2010,03/22/2009 (Deferred: Patient Refused) TD, Preservative Free 12/14/2007 TDAP (age 10 and older)(Boostrix) 06/01/2017 Varicella Zoster Vaccine (Adult) 05/05/2010 Zoster Vaccine Recombinant (Shingrix) 05/03/2020 ,12/13/2019 documented as of this encounter Social History Tobacco Use Types Packs/Day Years Used Date Smoking Tobacco: Former Cigarettes 1.5 24 Q uit: 02/08/1978 Smokeless Tobacco: Former Snuff, Chew Quit: 1970 Alcohol Use Standard Drinks/Week Comments Not Currently 0 (1 standard drink = 0.6 oz pur e alcohol) PHQ-2 Answer Date Recorded PHQ Adult Total Score 3 01/12/2022 Hunger Vital Sign Answer Date Recorded Within the past 12 months, y ou worried that your food would run out before you got the money to buy more. Never true 01/13/20 22 Within the past 12 months, t he food you bought just didn't last and you didn't have money to get more. Never true 01/12/2022 Sex and Gender Information Value Date Recorded Sex Assigned at Male 12/10/2020 9:14 AM EDT Gender Identity Male 12/10/2020 9:14 AM EDT Sexual Orientation Straight 12/10/2020 9: 14 AM EDT Job Start Date Occupation Industry Not on file Not on file Not on file documented as of this encounter Miscellaneous Notes * Telephone Encounter - Karrie Sheridan RN - 12/22/2022 8:40 AM EST I attempted to call the patient and was unable to reach him. I called the patients daughter. She reports to try calling the house in a few minutes it rings busy when she is on the phone. I called andspoke with the patients . He is currently in [facility]. Reports she does not feel like it is a good time to schedule the testing. Reports she would like him to be able to get on his feet before scheduling. I offered to call [facility] for her and try arrange any kind of transport that he would need. Patients is declining at this time. She was given our number to call back once the patient is out of rehab. She is agreeable to scheduling once he is out of [facility]. FYI * Telephone Encounter - Karrie Sheridan RN - 12/22/2022 8:25 AM EST Esophageal Manometry [place] Referring: Kiran Lucia Indication: EGD: 12/15/22: - The examination was suspicious for achalasia. Dilated to 18 mm. - Z-line regular, 43 cm from the incisors. - Normal stomach. - Normal duodenal bulb and second portion of the duodenum. - No specimens collected. Impression: - Soft diet. - Perform routine esophageal manometry at the next available appointment as OP. - Recall GI if needed. Barium Swallow: Prior Auth Outcome: Status Reason Referral Type Referral Reasons Referral Class Precert Not Needed Precert none none Ht:5'9.5" Wt: 211 lb * Telephone Encounter - Kiran Lucia MD - 12/15/2022 9:15 AM EST Patient is currently admitted to the hospital, EGD is suspicious for Achalasia, please arrange urgent HRM once discharged and send me the study to read, if proven Achalasia will discuss E-POEM at [facility] [place]. documented in this encounter Plan of Treatment Upcoming Encounters Date Type Department Care Team (Late st Contact Info) Description 01/07/2023 2:15 PM EST Office Visit Hematology/Oncology [facility] [address] [place] [address] Garfield Preciado MD [address] [facility] [place] [address] 01/11/2023 11:15 AM EST Office Visit Urology, [facility] [address] [facility] [place] [address] Torrey Abdi MD 27 [facility] [address] [place] [address] 01/14/2023 10:00 AM EST Nurse Only Ancillary [address] [place] [address] Nurse Candice [address] [place] [id number] 01/27/2023 1:00 PM EST Nurse Only Urology, [facility] [address] [place] [address] [facility] Nurse Urology [facility] [address] [place] [address] 03/02/2023 10:30 AM EST Cardiac Studies Cardiology [address] [place] [address] [facility] [address] [place] [address] 04/20/2023 10:00 AM EDT Office Visit Family [address] [place] [phone] Nicky Desouza PA-C [address] [place] [address] [place] [id number] 05/03/2023 11:00 AM EDT Office Visit Family [address] [place] [phone] Anna King MD [address] [place] [address] [place] [address] 08/10/2023 2:30 PM EDT Cardiac Studies Cardiac Studies [address] [place] [address] 2023 10:00 AM EDT Office Visit [address] [place] [phone] Anna King MD [address] [place] [address] [place] [id number] Scheduled Orders Name Type Priority Associated Diagnoses Orde r Schedule ESOPHAGEAL MOTILITY STUDY Procedures Routine Esophageal dysphagia Ordered: 12/15/2022 Scheduled Procedures Name Priority Associated Diagnoses Date/Ti me COLONOSCOPY FLEXIBLE PROXIMAL DIAGNOSTIC Recall History of colon polyps Health Maintenance Due Date Last Done Comments COLONOSCOPY-EVERY 3 YRS AGES 18-100 12/17/2020 12/17/2017, 12/17/2017, 11/09/2014, Additional history exists COVID-19 Vaccine (2022- season) 2022 12/19/2021, 12/10/2020, 12/01/2020, Additional history exists Depression Screening 01/12/2023 01/12/2022, 05/19/19 18 Albumin/Creatinine Ratio 02/13/2023 02/13/2022, 10/09 CKD PHOS USE SMARTSET 11588 02/13/202307/2022, 02/11/2021, 03/04/2020, Additional history exists GFR 06/19/2023 12/19/2022, 10/09, 07/08/2022, Additional history exists TSH 10/21/2023 10/20/2022, 05/10, 02/13/2022, Additional history exists CKD HGB USE SMARTSET 58064 12/20/202312/19, 10/20/2022, 10/20/2022, Additional history exists DTaP,Tdap,and Td Vaccines (2 - Td or Tdap) 06/02/2027 06/01/2017, 12/14/2007 Hepatitis B Completed 11/11/2011, 03/2011, 05/13/2011 Pneumococcal Vaccine: 65+ Years Completed 04/17/2014, 06/13/2008 Zoster Vaccines Completed 05/03/2020, 05/2019, 05/05/2010 Influenza Vaccine (FLU shot) Completed 01/2023, 10/20/2021, 10/24/2020, Additional history exists GARDASIL-HPV IMMUNIZATION SERIES Aged Out No longer eligible based on patient's age to complete this topic MENINGOCOCCAL (MENACTRA/MENVEO) Aged Out No longer eligible based on patient's age to complete this topic documented as of this encounter Medical Devices Not on filedocumented as of this encounter Visit Diagnoses Diagnosis Esophageal dysphagia- Primary Dysphagia, pharyngoesophageal phase documented in this encounter Care Teams Fisher Trammel Net Relationship Specialty Start Date End Date Anna King MD [address] [place] [address] [place] [id number] PCP - General Family Medicine 07/24/13 documented as of this encounter
--- OUTSIDE RECORDS SUMMARY | 2023-01-02 23:04 | External Medical Summary ---
Author Name Unknown Address Unknown Organization [id number][facility] [address] [place] [address] Laboratory Report Ordering Provider Test Date Status LORRI HUSSEIN 01/02/2023 05:48:00 Final Observation Date Value Abnormality Reference (Units ) Status BUN 01/02/2023 05:48:00 30 Above high normal 6-20 (mg/dL) Final Creatinine 01/02/2023 05:48:00 1.6 Above high normal 0.6-1.2 (mg/dL) Final Glomerular filtration rate/1.73 sq M.predicted [Volume Rate/Area] in Serum, Plasma or Blood by Creatinine-based formula (CKD-EPI) 01/02/2023 05:48:00 42 Below low normal >=60 (mL/min) Final eGFR is calculated based on the CKD-EPI 2020 equation SODIUM 01/02/2023 05:48:00 140 135-146 (m mol/L) Final Potassium 01/02/2023 05:48:00 4.9 3.5-5.1 (m mol/L) Final Cl 01/02/2023 05:48:00 91 Below low normal 98- 107 (mmol/L) Final CO2 01/02/2023 05:48:00 34 Above high normal 22 -32 (mmol/L) Final Anion gap 01/02/2023 05:48:00 15 7-15 (mmol /L) Final Glucose 01/02/2023 05:48:00 76 70-120 (mg /dL) Final Calcium 01/02/2023 05:48:00 9.7 8.4-10.2 ( mg/dL) Final Performing Location [facility] [address] [place] [address]
--- OUTSIDE RECORDS SUMMARY | 2023-01-02 23:04 | External Medical Summary ---
Author Name Unknown Address Unknown Organization [id number]:[facility] [place] [address] Laboratory Report Ordering Provider Test Date Status LORRI HUSSEIN 12/25/2022 05:50:00 Final Observation Date Value Abnormality Reference (Units ) Status WBC, Total 12/25/2022 05:50:00 7.46 4.00-10.8 0 (K/uL) Final RBC 12/25/2022 05:50:00 3.88 4.50-5.25 (M/uL) Final Hemoglobin 12/25/2022 05:50:00 11.5 Below low normal 14 .0-16.8 (g/dL) Final HCT 12/25/2022 05:50:00 38.7 Below low normal 40. 0-48.4 (%) Final MCV 12/25/2022 05:50:00 99.7 82.0-99.5 (fL) Final MCH 12/25/2022 05:50:00 29.6 27.0-34.0 (pg) Final MCHC 12/25/2022 05:50:00 29.7 32.0-36.0 (g/dL) Final RDW 12/25/2022 05:50:00 16.7 11.5-15.5 (%) Final Platelets 12/25/2022 05:50:00 244 140-400 (K /uL) Final MPV 12/25/2022 05:50:00 11.1 6.6-11.1 ( fL) Final Performing Location [facility] [place] [address]
--- OUTSIDE RECORDS SUMMARY | 2023-01-02 23:04 | External Medical Summary | Summary of Care ---
Author Name Unknown Organization [facility] Address [address] [place] [facility] [place] [address] Phone [phone] Care Team Providers Care Sourcing Manager Name Role Phone Anna King MD Primary Care Provide r Reason for Referral * Precert (Within 10 days (routine)) - Authorized Specialty Diagnoses / Procedures Referred By Contnoy t Referred To Contact Diagnoses Esophageal dysphagia Procedures ESOPHAGEAL MOTILITY STUDY Kiran Lucia MD [address] [place] [address] Referral ID Status Reason Start Date Expiration Date V isits Requested Visits Authorized [id number] Authorized 12/15/[phone] Encounter Details Date Type Department Care Team (Late st Contact Info) Description 12/15/2022 Telephone Gastroenterology, [facility] [address] [place] [address] Kiran Lucia MD [address] [place] [address] Allergies Active Allergy Reactions Criticality Noted Date Comments Niacin 09/20/2002 niaspan-flushing Oxycodone-Acetaminophen 08/18/2014 Propoxyphene Napsylate 03/08/2003 rash documented as of this encounter (statuses as of 12/22/2022) Medications Medication Sig Dispensed Refills Start Date [...] as of this encounter (statuses as of 12/22/2022) Active Problems Problem Noted Date Diagnosed Date [...] chronic 02/26/19 Atherosclerotic heart diseas e of [place] coronary artery without angina pectoris 02/27/2020 Pancreas [...] as of this encounter (statuses as of 12/22/2022) Resolved Problems Problem Noted Date Diagnosed Date [...] as of this encounter (statuses as of 12/22/2022) Immunizations Name Administration Dates Next Due COVID-19 [...] the patients . He is currently in [facility]. Reports she does not feel like it is a good time to schedule the testing. Reports she would like him to be able to get on his feet before scheduling. I offered to call [facility] for her and try arrange any kind of transport that he would need. Patients is declining at this time. She was given our number to call back once the patient is out of rehab. She is agreeable to scheduling once he is out of [facility]. FYI * Telephone Encounter - Karrie [...] if proven Achalasia will discuss E-POEM at [facility]. documented in this encounter Plan of Treatment Upcoming Encounters Date Type Department Care Team (Late st Contact Info) Description 01/07/2023 2:15 PM EST Office Visit Hematology/[facility] [address] [place] [address] Garfield Preciado MD [address] [facility] [place] [address] 01/11/2023 11:15 AM EST Office Visit Urology, [facility] 132 [facility] [place] [address] Torrey Abdi MD 27 [facility] [address] [place] [address] 01/14/2023 10:00 AM EST Nurse Only Ancillary [address] [place] [address] Nurse Candice [address] [place] [id number] 01/27/2023 1:00 PM EST Nurse Only Urology, [facility] [address] [place] [address] [facility] Nurse Urology [facility] [address] [place] [address] 03/02/2023 10:30 AM EST Cardiac Studies Cardiology [address] [place] [address] [facility]er [facility] [address] [place] [address] 04/20/2023 10:00 AM EDT Office Visit Family [address] [place] [phone] Nicky Desouza PA-C [address] [place] [address] [place] [address] 05/03/2023 11:00 AM EDT Office Visit Family [address] [place] [phone] Anna King MD [address] [place] [address] [place] [id number] 08/10/2023 2:30 PM EDT Cardiac Studies Cardiac Studies [address] [place] [address] 2023 10:00 AM EDT Office Visit [address] [place] [phone] Anna King MD [address] [place] [address] [place] [address] Scheduled Orders Name Type Priority Associated Diagnoses [...] 02/13/2023 02/13/2022, 10/09 CKD PHOS USE SMARTSET 34265 02/13/202307/2022, 02/11/2021, 03/04/2020, Additional history exists GFR 06/19/2023 12/19/2022, 10/09, 07/08/2022, Additional history exists TSH 10/21/2023 10/20/2022, 05/10, 02/13/2022, Additional history exists CKD HGB USE SMARTSET 08501 12/20/202312/19, 10/20/2022, 10/20/2022, Additional history exists DTaP,Tdap,and [...] phase documented in this encounter Care Teams Sourcing Manager Relationship Specialty Start Date End Date Anna King MD [address] [place] [address] [place] [id number] PCP - General Family Medicine 07/24/13 documented as of this encounter
--- OUTSIDE RECORDS SUMMARY | 2023-01-02 23:04 | External Medical Summary ---
Author Name Unknown Address Unknown Organization [id number]:LAB[facility]ATORY [place] [address] - [address] [place] [address] Laboratory Report Ordering Provider Test Date Status LORRI HUSSEIN 12/26/2022 05:30:00 Final Observation Date Value Abnormality Reference (Units ) Status BUN 12/26/2022 05:30:00 22 Above high normal 6-20 (mg/dL) Final Creatinine 12/26/2022 05:30:00 1.2 0.6-1.2 (mg/dL) Final Glomerular filtration rate/1.73 sq M.predicted [Volume Rate/Area] in Serum, Plasma or Blood by Creatinine-based formula (CKD-EPI) 12/26/2022 05:30:00 58 Below low normal >=60 (mL/min) Final eGFR is calculated based on the CKD-EPI 2020 equation SODIUM 12/26/2022 05:30:00 138 135-146 (m mol/L) Final Potassium 12/26/2022 05:30:00 4.5 3.5-5.1 (m mol/L) Final Cl 12/26/2022 05:30:00 95 Below low normal 98- 107 (mmol/L) Final CO2 12/26/2022 05:30:00 34 Above high normal 22 -32 (mmol/L) Final Anion gap 12/26/2022 05:30:00 9 7-15 (mmol /L) Final Glucose 12/26/2022 05:30:00 89 70-120 (mg /dL) Final Calcium 12/26/2022 05:30:00 9.5 8.4-10.2 ( mg/dL) Final Performing Location LAB[facility]ORY [facility] [place] 57-[address] 0 - [address] [place] [address]
--- OUTSIDE RECORDS SUMMARY | 2023-01-02 23:04 | External Medical Summary ---
Author Name Unknown Address Unknown Organization [id number]:[facility] [place] 57[address] - [address] [place] [address] Laboratory Report Ordering Provider Test Date Status LORRI HUSSEIN 12/26/2022 05:30:00 Final Observation Date Value Abnormality Reference (Units ) Status WBC, Total 12/26/2022 05:30:00 7.69 4.00-10.8 0 (K/uL) Final RBC 12/26/2022 05:30:00 3.64 4.50-5.25 (M/uL) Final Hemoglobin 12/26/2022 05:30:00 10.8 Below low normal 14 .0-16.8 (g/dL) Final HCT 12/26/2022 05:30:00 35.7 Below low normal 40. 0-48.4 (%) Final MCV 12/26/2022 05:30:00 98.1 82.0-99.5 (fL) Final MCH 12/26/2022 05:30:00 29.7 27.0-34.0 (pg) Final MCHC 12/26/2022 05:30:00 30.3 32.0-36.0 (g/dL) Final RDW 12/26/2022 05:30:00 16.6 11.5-15.5 (%) Final Platelets 12/26/2022 05:30:00 236 140-400 (K /uL) Final MPV 12/26/2022 05:30:00 11.1 6.6-11.1 ( fL) Final Performing Location LABORATORY [facility] [place] 57-[address] 0 - [address] [place] [address]
--- OUTSIDE RECORDS SUMMARY | 2023-01-02 23:04 | External Medical Summary ---
Author Name Unknown Address Unknown Organization [id number]:[facility] - [address] [place] [address] Laboratory Report Ordering Provider Test Date Status LORRI HUSSEIN 12/22/2022 07:44:37 Final Observation Date Value Abnormality Reference (Units) Status Bacteria identified in Specimen by Culture 12/22/2022 07:44:37 No significant growth Final Test: Culture, Urine, Quanti tative
Specimen Type: Urine
Specimen Date: 12/22/2022 7:44 AM
Result Date: 12/23/2022 9:18 AM
Result Status: Final result
Resulting Lab: [facility]ATORY [facility]
[address]
[place] [address]

CULTURE

No significant growth

null Performing Location [facility]ORY [facility] - [address] [place] [address]
--- OUTSIDE RECORDS SUMMARY | 2023-01-02 23:04 | External Medical Summary ---
Author Name Unknown Address Unknown Organization [id number]:[facility]ATORY [place] [address] Laboratory Report Ordering Provider Test Date Status LORRI HUSSEIN 12/25/2022 05:50:00 Final Observation Date Value Abnormality Reference (Units ) Status BUN 12/25/2022 05:50:00 24 Above high normal 6-20 (mg/dL) Final Creatinine 12/25/2022 05:50:00 1.3 Above high normal 0.6-1.2 (mg/dL) Final Glomerular filtration rate/1.73 sq M.predicted [Volume Rate/Area] in Serum, Plasma or Blood by Creatinine-based formula (CKD-EPI) 12/25/2022 05:50:00 54 Below low normal >=60 (mL/min) Final eGFR is calculated based on the CKD-EPI 2020 equation SODIUM 12/25/2022 05:50:00 139 135-146 (m mol/L) Final Potassium 12/25/2022 05:50:00 4.4 3.5-5.1 (m mol/L) Final Cl 12/25/2022 05:50:00 95 Below low normal 98- 107 (mmol/L) Final CO2 12/25/2022 05:50:00 36 Above high normal 22 -32 (mmol/L) Final Anion gap 12/25/2022 05:50:00 8 7-15 (mmol /L) Final Glucose 12/25/2022 05:50:00 95 70-120 (mg /dL) Final Calcium 12/25/2022 05:50:00 9.5 8.4-10.2 ( mg/dL) Final Performing Location LAB[facility]ATORY [place] [address]
--- OUTSIDE RECORDS SUMMARY | 2023-01-02 23:04 | External Medical Summary ---
Author Name Unknown Address Unknown Organization [id number]:LABORATORY [facility] [place] [address] - [address] [place] [address] Laboratory Report Ordering Provider Test Date Status LORRI HUSSEIN 01/02/2023 05:48:00 Final Observation Date Value Abnormality Reference (Units ) Status WBC, Total 01/02/2023 05:48:00 7.39 4.00-10.8 0 (K/uL) Final RBC 01/02/2023 05:48:00 4.15 4.50-5.25 (M/uL) Final Hemoglobin 01/02/2023 05:48:00 12.1 Below low normal 14 .0-16.8 (g/dL) Final HCT 01/02/2023 05:48:00 40.7 40.0-48.4 (%) Final MCV 01/02/2023 05:48:00 98.1 82.0-99.5 (fL) Final MCH 01/02/2023 05:48:00 29.2 27.0-34.0 (pg) Final MCHC 01/02/2023 05:48:00 29.7 32.0-36.0 (g/dL) Final RDW 01/02/2023 05:48:00 15.7 11.5-15.5 (%) Final Platelets 01/02/2023 05:48:00 215 140-400 (K /uL) Final MPV 01/02/2023 05:48:00 11.5 6.6-11.1 ( fL) Final Performing Location LABORATORY [facility] [place] 57[address] [place] [address]
--- OUTSIDE RECORDS SUMMARY | 2023-01-02 23:04 | External Medical Summary | Summary of Care ---
Author Name Unknown Organization [facility] Address [address] [facility] [place] [address] Phone [phone] Care Team Providers Care Pediatric Urologist Name Role Phone Anna King MD Primary Care Provide r Reason for Referral * Precert (Within 10 days (routine)) - Authorized Specialty Diagnoses / Procedures Referred By Contnoy t Referred To Contact Diagnoses Esophageal dysphagia Procedures ESOPHAGEAL MOTILITY STUDY Kiran Lucia MD [address] [employer] [place] [address] Referral ID Status Reason Start Date Expiration Date V isits Requested Visits Authorized [id number] Authorized 12/15/2022 999 999 Encounter Details Date Type Department Care Team (Late st Contact Info) Description 12/15/2022 Telephone Gastroenterology, 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 Still at [facility] will reach out after d/c. * Telephone Encounter - Karrie Sheridan RN - 12/22/2022 8:40 AM EST I attempted to call the patient and was unable to reach him. I called the patients daughter. She reports to try calling the house in a few minutes it rings busy when she is on the phone. I called andspoke with the patients . He is currently in [facility]. Reports she does not feel like it is a good time to schedule the testing. Reports she would like him to be able to get on his feet before scheduling. I offered to call [facility] for her and try arrange any kind of transport that he would need. Patients is declining at this time. She was given our number to call back once the patient is out of rehab. She is agreeable to scheduling once he is out of [facility]. FYI * Telephone Encounter - Karrie Sehridan RN - 12/22/2022 8:25 AM EST Esophageal Manometry [place] Referring: Kiran Lucia, Indication: EGD: 12/15/22: - The examination was [...] if proven Achalasia will discuss E-POEM at [facility]. documented in this encounter Plan of Treatment Upcoming Encounters Date Type Department Care Team (Late st Contact Info) Description 01/07/2023 2:15 PM EST Office Visit Hematology/Oncology [facility] 200 [facility] [place] [address] Garfield Preciado MD 200 [facility] [place] [address] 01/11/2023 11:15 AM EST Office Visit Urology, [facility] 132 [facility] [place] [address] Torrey Abdi MD [address] [address] [place] [address] 01/14/2023 10:00 AM EST Nurse Only Ancillary [address] [place] [address] Candice Nurse [address] [place] [phone] 01/27/2023 1:00 PM EST Nurse Only Urology, [facility] 132 [facility] [place] [address] Nurse Darrick [facility] 132 [facility] [place] [address] 03/02/2023 10:30 AM EST Cardiac Studies Cardiology [address] [place] [address] Candice Pacer Clinic [facility] 132 [facility] [place] [address] 04/20/2023 10:00 AM EDT Office Visit Family Medicine [address] [place] [phone] Nicky Desouza PA-C [address] [place] [address] [place] [address] 05/03/2023 11:00 AM EDT Office Visit Family Medicine [address] [place] [phone] Anna King MD [address] [place] [address] [place] [address] 08/10/2023 2:30 PM EDT Cardiac Studies Cardiac Studies [address] [place] [address] 2023 10:00 AM EDT Office Visit Family Medicine [address] [place] [phone] Anna King MD [address] [place] [address] [place] [id number] Scheduled Orders Name Type Priority Associated Diagnoses [...] 02/13/2023 02/13/2022, 10/09 CKD PHOS USE SMARTSET 01953 02/13/202307/2022, 02/11/2021, 03/04/2020, Additional history exists GFR 06/26/2023 12/26/2022, 12/09, 12/19/2022, Additional history exists TSH 10/21/2023 10/20/2022, 05/10, 02/13/2022, Additional history exists CKD HGB USE SMARTSET 72586 12/27/202312/26, 12/25/2022, 12/19/2022, Additional history exists DTaP,Tdap,and Td Vaccines (2 - Td or Tdap) 06/02/2027 06/01/2017, 12/14/2007 Hepatitis B Completed 11/11/2011, 03/2011, 05/13/2011 Pneumococcal Vaccine: 65+ Years Completed 04/17/2014, 06/13/2008 Zoster Vaccines Completed 05/03/2020, 11/0 05/2019, 05/05/2010 Influenza Vaccine (FLU shot) Completed [...] phase documented in this encounter Care Teams Pediatric Urologist Relationship Specialty Start Date End Date Anna King MD [address] [place] [address] [place] [phone] PCP - General Family Medicine 07/24/13 documented as of this encounter
--- OUTSIDE RECORDS SUMMARY | 2023-01-02 23:04 | External Medical Summary | Summary of Care ---
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 [...] IIA(T1c, N0, M0, PSA: Less than 10, [place] 7) - Signed by Jace Means MD [...] hx of multiple hyperplastic polyps [4] removed 3- BENIGN HYPERTENSION 06/09/2000 12/15/19 09 Overview: Modified [...] on file documented as of this encounter Plan of Treatment Upcoming Encounters Date Type Department Care Team (Late st Contact Info) Description 12/22/2022 8:00 AM EST Laboratory Lab Mobile Phlebotomy [facility] [address] [place] [address] [facility] [place] [address] [place] [address] 01/07/2023 2:15 PM EST Office Visit Hematology/Oncology [facility] [address] [place] [address] Garfield Preciado MD [address] [place] [address] 01/11/2023 11:15 AM EST Office Visit Urology, [facility] [address] Torrey Abdi MD [address] [place] [address] [place] [address] 01/14/2023 10:00 AM EST Nurse Only Ancillary [address] [place] [address] Candice, Nurse [address] [place] [address] 01/27/2023 1:00 PM EST Nurse Only Urology, [facility] 132 [facility] [address] Nurse Darrick Urology [facility] [address] [place] [address] 03/02/2023 10:30 AM EST Cardiac Studies Cardiology [address] [place] [address] [place], Pacer [facility] 132 [facility] [place] [address] 04/20/2023 10:00 AM EDT Office Visit Family [address] [place] [phone] Nicky Desouza PA-C [address] [place] [address] [place] [address] 05/03/2023 11:00 AM EDT Office Visit [address] [place] [phone] Anna King MD [address] [place] [address] [place] [address] 08/10/2023 2:30 PM EDT Cardiac Studies Cardiac Studies [address] [place] [address] 2023 10:00 AM EDT Office Visit [address] [place] [phone] Anna King MD [address] [place] [address] [place] [address] Scheduled Procedures Name Priority Associated Diagnoses Date/Ti me COLONOSCOPY FLEXIBLE PROXIMAL DIAGNOSTIC Recall History of colon polyps Health Maintenance Due Date Last Done Comments COLONOSCOPY-EVERY 3 YRS AGES 18-100 12/17/2020 12/17/2017, 12/17/2017, 11/09/2014, Additional history exists COVID-19 Vaccine (2022- season) 2022 12/19/2021, 12/10/2020, 12/01/2020, Additional history exists Depression Screening 01/12/2023 01/12/2022, 05/19/19 18 Albumin/Creatinine Ratio 02/13/2023 02/13/2022, 10/09 CKD PHOS USE SMARTSET 35327 02/13/202307/2022, 02/11/2021, 03/04/2020, Additional history exists GFR 06/19/2023 12/19/2022, 10/09, 07/08/2022, Additional history exists TSH 10/21/2023 10/20/2022, 05/10, 02/13/2022, Additional history exists CKD HGB USE SMARTSET 24260 12/20/202312/19, 10/20/2022, 10/20/2022, Additional history exists DTaP,Tdap,and [...] Not on filedocumented as of this encounter Care Teams Master Machinist Relationship Specialty Start Date End Date Anna King MD [address] [place] [address] [place] [phone] PCP - General Family Medicine 07/24/13 documented as of this encounter
--- OUTSIDE RECORDS SUMMARY | 2023-01-02 23:04 | External Medical Summary ---
Author Name Unknown Address Unknown Organization K09:LABORATORY [place] 56-[address] - [address] [place] [address] Laboratory Report Ordering Provider Test Date Status LORRI HUSSEIN 12/22/2022 07:44:37 Final Observation Date Value Abnormality Reference (Units ) Status Color of Urine by Auto 12/22/2022 07:44:37 Yellow Light Yellow, Yellow, Dark Yellow Final Clarity, Urine 12/22/2022 07:44:37 Clear Clear Final Glucose [Mass/volume] in Urine by Automated test strip 12/22/2022 07:44:37 Negative Negative (mg/dL) Final Bilirubin.total [Presence] in Urine by Automated test strip 12/22/2022 07:44:37 Negative Negative Final Ketones [Mass/volume] in Urine by Automated test strip 12/22/2022 07:44:37 Negative Negative (mg/dL) Final Specific gravity, Urine 12/22/2022 07:44:37 1.015 1.003-1.030 Final Hemoglobin [Presence] in Urine by Automated test strip 12/22/2022 07:44:37 Negative Negative Final pH, Urine 12/22/2022 07:44:37 6.0 5.0-7.5 (Units) Final Protein [Mass/volume] in Urine by Automated test strip 12/22/2022 07:44:37 Negative Negative (mg/dL) Final Urobilinogen [Mass/volume] in Urine by Automated test strip 12/22/2022 07:44:37 0.2 0.2, 1.0 (mg/dL) Final Nitrite [Presence] in Urine by Automated test strip 12/22/2022 07:44:37 Negative Negative Final Leukocyte esterase [Presence] in Urine by Automated test strip 12/22/2022 07:44:37 Negative Negative Final RBC, Urine 12/22/2022 07:44:37 0-2 0-2 (/HPF) Final WBC, Urine 12/22/2022 07:44:37 0-2 0-2 (/HPF) Final Bacteria [#/area] in Urine sediment by Microscopy high power field 12/22/2022 07:44:37 0-25 0-25 (/HPF) Final Hyaline casts, Urine 12/22/2022 07:44:37 5-9 Abnormal None (/LPF) Final Performing Location LABORATORY [place] 43- [address] - [address] [place] [address]
--- OUTSIDE RECORDS SUMMARY | 2023-01-02 23:05 | External Medical Summary ---
Author Name Unknown Address Unknown Organization K0G:LABORATORY [facility] [place] 57-[address] - [address] [place] [address] Laboratory Report Ordering Provider Test Date Status LORRI HUSSEIN 12/19/2022 06:00:00 Final Observation Date Value Abnormality Reference (Units ) Status BUN 12/19/2022 06:00:00 28 Above high normal 6-20 (mg/dL) Final Creatinine 12/19/2022 06:00:00 1.5 Above high normal 0.6-1.2 (mg/dL) Final Glomerular filtration rate/1.73 sq M.predicted [Volume Rate/Area] in Serum, Plasma or Blood by Creatinine-based formula (CKD-EPI) 12/19/2022 06:00:00 48 Below low normal >=60 (mL/min) Final eGFR is calculated based on the CKD-EPI 2020 equation SODIUM 12/19/2022 06:00:00 143 135-146 (m mol/L) Final Potassium 12/19/2022 06:00:00 4.1 3.5-5.1 (m mol/L) Final Cl 12/19/2022 06:00:00 94 Below low normal 98- 107 (mmol/L) Final CO2 12/19/2022 06:00:00 35 Above high normal 22 -32 (mmol/L) Final Anion gap 12/19/2022 06:00:00 14 7-15 (mmol /L) Final Glucose 12/19/2022 06:00:00 84 70-120 (mg /dL) Final Calcium 12/19/2022 06:00:00 9.1 8.4-10.2 ( mg/dL) Final Performing Location LABORATORY [facility] [place] 57-[address] 0 - [address] [place] [address]
--- OUTSIDE RECORDS SUMMARY | 2023-01-02 23:05 | External Medical Summary ---
Author Name Unknown Address Unknown Organization K0G:LABORATORY [facility] [place] 57-[address] - [address] [place] [address] Laboratory Report Ordering Provider Test Date Status LORRI HUSSEIN 12/19/2022 06:00:00 Final Observation Date Value Abnormality Reference (Units ) Status WBC, Total 12/19/2022 06:00:00 11.22 Above high normal 4 .00-10.80 (K/uL) Final RBC 12/19/2022 06:00:00 3.19 4.50-5.25 (M/uL) Final Hemoglobin 12/19/2022 06:00:00 9.6 Below low normal 14 .0-16.8 (g/dL) Final HCT 12/19/2022 06:00:00 31.8 Below low normal 40. 0-48.4 (%) Final MCV 12/19/2022 06:00:00 99.7 82.0-99.5 (fL) Final MCH 12/19/2022 06:00:00 30.1 27.0-34.0 (pg) Final MCHC 12/19/2022 06:00:00 30.2 32.0-36.0 (g/dL) Final RDW 12/19/2022 06:00:00 17.0 11.5-15.5 (%) Final Platelets 12/19/2022 06:00:00 211 140-400 (K /uL) Final MPV 12/19/2022 06:00:00 10.7 6.6-11.1 ( fL) Final Performing Location LABORATORY [facility] [place] 57[address] 0 - [address] [place] [address]
--- OUTSIDE RECORDS SUMMARY | 2023-01-02 23:05 | External Medical Summary | Summary of Care ---
Author Name Unknown Organization [facility] Address [address] [place] [address] Phone [phone] Care Team Providers Care Baker Head Name Role Phone Anna King MD Primary Care Provide r Encounter Details Date Type Department Care Team (Latest Contact Info) Description 12/09/2022 10:40 PM EDT - 12/09/2022 11:59 PM EDT Hospital Encounter Radiology Film File [address] [place] [address] Arrived Discharge Disposition: Home - Self Care Allergies Active Allergy Reactions Criticality Noted Date Comments Niacin 09/20/2002 niaspan-flushing Oxycodone-Acetaminophen 08/18/2014 Propoxyphene Napsylate 03/08/2003 rash documented as of this encounter (statuses as of 12/12/2022) Medications Medication Sig Dispensed Refills Start Date [...] as of this encounter (statuses as of 12/12/2022) Active Problems Problem Noted Date Diagnosed Date [...] 02/26/19 21 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 Pancreas [...] as of this encounter (statuses as of 12/12/2022) Resolved Problems Problem Noted Date Diagnosed Date [...] as of this encounter (statuses as of 12/12/2022) Immunizations Name Administration Dates Next Due COVID-19 [...] Care Team (Late st Contact Info) Description 12/17/2022 10:00 AM EST Office Visit Cardiology [address] [place] [address] [place] Parrish PA-C [facility] [address] 01/07/2023 2:15 PM EST Office Visit Hematology/Oncology [facility] 200 [facility] [place] [address] Garfield Preciado MD 200 [facility] [place] [address] 01/11/2023 11:15 AM EST Office Visit Urology, [facility] 132 [facility] [place] [address] Torrey Abdi MD 27 [facility] 270 [place] [address] 01/14/2023 10:00 AM EST Nurse Only Ancillary [address] [place] [address] [place], Nurse [address] [place] [address] 01/27/2023 1:00 PM EST Nurse Only Urology, [facility] [address] [place] [address] [facility] Nurse Urology [facility] [address] [place] [address] 03/02/2023 10:30 AM EST Cardiac Studies Cardiology [address] [place] [address] Candice Pacer Clinic [facility] [address] [place] [address] 04/20/2023 10:00 AM EDT Office Visit [address] [phone] Nicky Desouza PA-C [address] [place] [address] [place] [address] 05/03/2023 11:00 AM EDT Office Visit Family [address] [place] [phone] Anna King MD [address] [place] [address] [place] [address] 08/10/2023 2:30 PM EDT Cardiac Studies Cardiac Studies [address] [place] [address] 2023 10:00 AM EDT Office Visit Family [address] [place] [phone] Anna King MD [address] [place] [address] [place] [address] Scheduled Procedures Name Priority Associated Diagnoses Date/Ti me COLONOSCOPY FLEXIBLE PROXIMAL DIAGNOSTIC Recall History of colon polyps Health Maintenance Due Date Last Done Comments COLONOSCOPY-EVERY 3 YRS AGES 18-100 12/17/2020 12/17/2017, 12/17/2017, 11/09/2014, Additional history exists COVID-19 Vaccine ( season) 2022 12/19/2021, 12/10/2020, 12/01/2020, Additional history exists Depression Screening 01/12/2023 01/12/2022, 05/19/19 18 Albumin/Creatinine Ratio 02/13/2023 02/13/2022, 10/09 CKD PHOS USE SMARTSET 30049 02/13/202307/2022, 02/11/2021, 03/04/2020, Additional history exists GFR 04/20/2023 10/20/2022, 06/10, 06/04/2022, Additional history exists CKD HGB USE SMARTSET 07207 10/21/202310/20, 10/20/2022, 07/08/2022, Additional history exists TSH 10/21/2023 10/20/2022, 05/10, 02/13/2022, Additional history exists DTaP,Tdap,and Td Vaccines (2 [...] Not on filedocumented as of this encounter Procedures Procedure Name Priority Date/Time Associated Diagnosis Comments RADIOLOGY EXAM - CT (IMAGES ONLY, NO REPORT) Routine 12/09/2022 10:40 PM EDT documented in this encounter Results * RADIOLOGY EXAM - CT (IMAGES ONLY, NO REPORT) (12/09/2022 10:40 PM EDT) 12/09/2022 10:4 0 PM EDT Narrative Scheduling, Silent - 12/11/2022 5:01 PM EDT This is an imaging study not interpreted or resulted by a [facility] or [facility] contracted radiologist. Anna King MD RAD CT documented in this encounter Care Teams Baker Head Relationship Specialty Start Date End Date Anna King MD [address] [place] [address] [place] [phone] PCP - General Family Medicine 07/24/13 documented as of this encounter
--- OUTSIDE RECORDS SUMMARY | 2023-01-02 23:05 | External Medical Summary | Summary of Care ---
Author Name Unknown Organization [facility] Address [address] [facility] [address] Phone [phone] Care Team Providers Care Senior Power Scheduler Name Role Phone Anna King MD Primary Care Provide r Encounter Details Date Type Department Care Team (Late st Contact Info) Description 12/15/2022 Orders Only Gastroenterology, [facility] [address] [place] [address] Kiran Lucia MD [address] [place] [address] Allergies Active Allergy Reactions Criticality Noted Date Comments Niacin 09/20/2002 niaspan-flushing Oxycodone-Acetaminophen 08/18/2014 Propoxyphene Napsylate 03/08/2003 rash documented as of this encounter (statuses as of 12/15/2022) Medications Medication Sig Dispensed Refills Start Date [...] as of this encounter (statuses as of 12/15/2022) Active Problems Problem Noted Date Diagnosed Date [...] 02/26/19 21 Atherosclerotic heart diseas e of [place] coronary artery without angina pectoris 02/27/2020 Pancreas [...] as of this encounter (statuses as of 12/15/2022) Resolved Problems Problem Noted Date Diagnosed Date [...] as of this encounter (statuses as of 12/15/2022) Immunizations Name Administration Dates Next Due COVID-19 [...] 01/07/2023 2:15 PM EST Office Visit Hematology/Oncology [facility] [address] [facility] [place] [address] Garfield Preciado MD [address] [place] [address] 01/11/2023 11:15 AM EST Office Visit Urology, [facility] [address] [facility] [place] [address] Torrey Abdi MD [address] [facility] [address] [place] [address] 01/14/2023 10:00 AM EST Nurse Only Ancillary [address] [place] [address] Candice, Nurse [address] [place] [address] 01/27/2023 1:00 PM EST Nurse Only Urology, [facility] [address] [facility] [place] [address] Nurse Darrick Urology [facility] [address] [facility] [place] [address] 03/02/2023 10:30 AM EST Cardiac Studies Cardiology [address] [place] [address] Attila Harvey [address] [place] [address] 04/20/2023 10:00 AM EDT Office Visit Family Medicine [address] [phone] Nicky Desouza PA-C [address] [place] [address] [place] [id number] 05/03/2023 11:00 AM EDT Office Visit [address] [place] [address] Anna King MD [address] [place] [address] [place] [address] 08/10/2023 2:30 PM EDT Cardiac Studies Cardiac Studies [address] [place] [address] 2023 10:00 AM EDT Office Visit [address] [place] [phone] Anna King MD [address] [place] [address] [place] [id number] Scheduled Procedures Name Priority Associated Diagnoses Date/Ti me COLONOSCOPY FLEXIBLE PROXIMAL DIAGNOSTIC Recall History of colon polyps Health Maintenance Due Date Last Done Comments COLONOSCOPY-EVERY 3 YRS AGES 18-100 12/17/2020 12/17/2017, 12/17/2017, 11/09/2014, Additional history exists COVID-19 Vaccine (2022- season) 2022 12/19/2021, 12/10/2020, 12/01/2020, Additional history exists Depression Screening 01/12/2023 01/12/2022, 05/19/19 18 Albumin/Creatinine Ratio 02/13/2023 02/13/2022, 10/09 CKD PHOS USE SMARTSET 78322 02/13/202307/2022, 02/11/2021, 03/04/2020, Additional history exists GFR 04/20/2023 10/20/2022, 06/10, 06/04/2022, Additional history exists CKD HGB USE SMARTSET 74315 10/21/202310/20, 10/20/2022, 07/08/2022, Additional history exists TSH [...] Procedure Name Priority Date/Time Associated Diagnosis Comments UPPER GI ENDOSCOPY 12/15/2022 documented in this encounter Results * UPPER GI ENDOSCOPY (12/15/2022) 12/15/2022 Kiran Lucia MD GASTRO UPPER documented in this encounter Care Teams Senior Power Scheduler Relationship Specialty Start Date End Date Anna King MD [address] [place] [address] [place] [phone] PCP - General Family Medicine 07/24/13 documented as of this encounter
--- OUTSIDE RECORDS SUMMARY | 2023-01-02 23:05 | External Medical Summary | Summary of Care ---
Author Name Unknown Organization [facility] Address [address] [place] [address] Phone [phone] Care Team Providers Care Cardiology Technician Name Role Phone Anna King MD Primary Care Provide r Reason for Visit * Reason Onset Date Comments Medication Refill 11/25/2022 Encounter Details Date Type Department Care Team Description 11/25/2022 Refill Family Medicine [address] [phone] Anna King MD [address] [place] [address] [place] [phone] Restless legs syndrome Allergies Active Allergy Reactions Severity Noted Date Comments Niacin 09/20/2002 niaspan-flushing Oxycodone-Acetaminophen 08/18/2014 Propoxyphene Napsylate 03/08/2003 rash documented as of this encounter (statuses as of 11/26/2022) Medications Medication Sig Dispensed Refills Start Date [...] Active Atorvastatin Calcium 20 MG Oral Tablet (Lipitor)Indications :Dyslipidemia, goal LDL below 100 Take by mouth [...] at bedtime 30 Tablet 0 02/19/2022 Active Fluticasone-Salmeter ol 250-50 MCG/ACT Inhalation Aerosol Powder Breath Activated (Wixela Inhub)Indications:As thma, mild persistent TAKE 1 PUFF BY MOUTH TWICE A DAY 180 Each 1 03/11/2022 Active Torsemide 20 MG Oral Tablet (Demadex)Indications :Heart failure, diastolic, due to HTN (HCC) TAKE [...] Active Levothyroxine Sodium 75 MCG Oral Tablet (Levoxyl)Indications :Acquired hypothyroidism TAKE 1 TABLET BY MOUTH EVERY DAY (AT LEAST 30 MINUTES PRIOR TO BREAKFAST OR OTHER MEDICATIONS) 90 Tablet 2 09/25/2022 Active Sodium Chloride 3 % Inhalation Nebulization Solution Inhale 3 mL via nebulizer in the morning and 3 mL before bedtime. 180 mL 0 10/30/2022 Active Albuterol Sulfate HFA 108 (90 Base) MCG/ACT Inhalation Aerosol SolutionIndications: Restrictive lung disease INHALE 2 PUFFS THREE TIMES [...] 11/20/2022 Active rOPINIRole HCl 1 MG Oral TabletIndications:Re stless legs syndrome Take 1 Tablet by mouth at bedtime. With food. For restless legs 90 Tablet 1 11/26/2022 Active rOPINIRole HCl 1 MG Oral TabletIndications:Re stless legs syndrome Take 1 Tablet by mouth at bedtime. With food. For restless legs 90 Tablet 1 04/27/2022 3 Discontinue d(Refill) documented as of this encounter (statuses as of 11/26/2022) Active Problems Problem Noted Date Interstitial pulmonary disease 3 Elevated prostate specific antigen (PSA) 10/20/2022 Chronic respiratory failure with hypoxia and hypercapnia 02/13/2022 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 Chronic diastolic congestive heart failu re 02/13/2022 Chronic bilateral low back pain with lef t-sided sciatica 02/13/2022 Hypertensive heart and kidne y disease with chronic diastolic congestive heart failure and stage 3b chronic kidney disease 06/26/2021 Other schizophrenia 05/16/2021 Chronic kidney disease, stage 3b 022 Overview: Per CKD protocol Post-traumatic stress disorder, chronic 02/27/2020 Atherosclerotic heart diseas e of [place] coronary artery without angina pectoris 02/27/2020 Pancreas cyst 03/30/2019 Asthma, mild persistent 03/30/2019 Undescended left testicle 09/23/2018 TIBURCIO (generalized anxiety disorder) 06/13 History of colon polyps 05/10/2018 History of prostate cancer 05/10/2018 RUDY on CPAP 04/21/2018 Chronic frontal sinusitis 04/02/2018 Bronchiectasis without complication 08/08 Severe episode of recurrent major depressive disorder, with psychotic features 08/18/2017 Presence of cardiac pacemaker 08/17/2017 Tachy-noni syndrome 08/10/2017 Persistent atrial fibrillation 7 Restrictive lung disease 01/09/2016 Overview: moderate Acquired hypothyroidism 10/31/2014 Hx of actinic keratosis 07/24/2013 Dyslipidemia, goal LDL below 100 011 Gout 11/06/2009 HTN, GOAL BELOW 140/90 12/14/2008 Overview: Modified per HTN Taxonomy. ADVANCE DIRECTIVE INFORMATION 09/22/2004 Overview: Yes, Patient instructed to provide copy of advance directive for provider to review and to be scanned into Electronic Medical Record BPH without obstruction/lower urinary tr act symptoms 03/08/2003 ARTHROPATHY NOS-PELVIS 02/14/2003 Hip joint replacement status 01/02/2003 documented as of this encounter (statuses as of 11/26/2022) Resolved Problems Problem Noted Date Resolved Date Hypertensive heart and kidne y disease with chronic diastolic congestive heart failure and stage 3a chronic kidney disease 02/13/2022 02/19/2022 Benign hypertension with stage 3b chronic kidney disease 03/24/2021 12/31/2021 Overview: Per CKD protocol Heart failure, diastolic, due to HTN 02/10/2021 12/31/2021 Chronic kidney disease, stage 3a 07/23/2020 03/26/2021 Overview: Per CKD protocol Benign hypertension with stage 3a chronic kidney disease 06/18/2020 03/26/2021 Overview: Per CKD protocol Gastro-esophageal reflux disease without esophag itis 02/27/2020 02/27/2020 Unspecified psychosis not du e to a substance or known physiological condition 10/26/2019 02/27/2020 Hypertensive heart disease w ith chronic right-sided congestive heart failure 11/30/2017 05/23/2018 Benign hypertension with chronic kidney disease, stage III 11/30/2017 06/20/2020 Overview: Per CKD protocol Chronic obstructive pulmonary disease 08/18/2017 11/30/2017 RHF (right heart failure) 06/12/20162018 Kidney disease, chronic, stage III (GFR 30-59 ml /min) 04/23/2014 06/22/2018 Overview: Per CKD protocol #1 Prostate cancer 09/15/2012 05/10/2018 Cancer Staging:Clinical stage from 05/22/2013:Stage IIA(T1c, N0, M0, PSA: Less than 10, [place] 7) - Signed by Jace Means MD on 05/17/2017 Asthma, mild persistent 02/28/2010 12/01/19 18 Asthma with severity to be determined 08/01/2009 02/28/2010 Overview: Per Asthma Taxonomy ICD-10 update of inactive term Polymyalgia rheumatica 06/14/2009 5 Dyslipidemia, goal to be determined 01/15/2009 02/28/2010 Overview: Per Lipid Taxonomy. Dyslipidemia, goal LDL below 160 12/14/2008 01/15/2009 Overview: Per Lipid Taxonomy. EXTRINSIC ASTHMA, UNSPEC 11/21/2002 010 BENIGN NEOPLASM LG BOWEL 10/17/2001 019 Overview: hx of multiple hyperplastic polyps [4] removed 3-01 BENIGN HYPERTENSION 06/09/2000 12/14/2008 Overview: Modified per HTN Taxonomy. Mixed dyslipidemia 06/09/2000 12/14/2008 Major depression, single episode 06/09/2000 11/30/2017 Benign prostatic hyperplasia Overview: ICD-10 update of inactive term ICD-10 update of inactive term documented as of this encounter (statuses as of 11/26/2022) Immunizations Name Administration Dates Next Due COVID-19 [...] drink = 0.6 oz pur e alcohol) Food Insecurity Answer Date Recorded Within the past 12 months, y ou worried that your food would run out before you got money to buy more. Never true 01/12/2022 Within the past 12 months, t he food you bought just didn't last and you didn't have money to get more. Never true 01/12/2022 Sex Assigned at Date Recorded Male 12/10/2020 9:14 AM E DT Job Start Date Occupation Industry Not on file Not on file Not on file documented as of this encounter Miscellaneous Notes * Telephone Encounter - Anna King MD - 11/26/2022 10:31 AM EDT Signed Prescriptions: Disp Refills rOPINIRole HCl 1 MG Oral Tablet 90 Tab*1 Sig: Take 1 Tablet by mouth at bedtime. With food. For restless legs Authorizing Provider: ANNA KING * Telephone Encounter - Shawnee Pablo RP - 11/26/2022 9:29 AM EDTPending Prescriptions: Disp Refills rOPINIRole HCl 1 MG Oral Tablet 90 Tab*1 Sig: Take 1 Tablet by mouth at bedtime. With food. For restless legs * Telephone Encounter - Shawnee Pablo RPh - 11/26/2022 9:29 AM EDT [facility] is currently not authorized to approve refills for the pended medication(s) per refill protocol. Please approve if appropriate. Thanks, Shawnee Pablo Clinical Pharmacist [facility] ([facility]) (Formerly Telepharmacy) [phone] 11/26/2022, 9:29 AM * Telephone Encounter - Rena Mcfarland [facility] - 11/25/2022 1:34 PM EDT Did you pend patient's preferred pharmacy and medication before forwarding?yes Pharmacy: [id number] [facility] Pending Prescriptions: Disp Refills rOPINIRole HCl 1 MG Oral Tablet 90 Tab*1 Sig: Take 1 Tablet by mouth at bedtime. With food. For restless legs Last Visit: 10/20/2022 (in office), Visit date not found (telemedicine) Next Visit: 04/20/2023 If no future appointments scheduled, and last appointment is greater than a year ago, please schedule patient for a follow-up appointment Last date the medication was ordered: 04/27/2022 Is this request for a controlled substance?No Urine Drug Screen:No results found. However, due to the size of the patient record, not all encounters were searched. Please check Results Review for a complete set of results. Patient Phone Numbers Labs: Lab Results Component Value Date/Time CREAT 1.2 10/20/2022 09:44 AM CREAT 1.41 (A) 07/16/2021 12:00 AM CREAT 1.3 (H) 03/04/2020 10:29 AM POTASSIUM 4.7 10/20/2022 09:44 AM POTASSIUM 4.5 07/16/2021 12:00 AM POTASSIUM 4.3 03/04/2020 10:29 AM TSH 3.87 10/20/2022 09:44 AM TSH 3.190 03/10/2021 12:00 AM TSH 2.31 10/26/2019 10:36 AM LDLCALC 80 06/04/2022 07:52 AM LDLCALC 74 10/26/2019 10:36 AM LDLDIRECT NOT APPLICABLE 10/26/2019 10:36 AM LDLDIRECT 102 03/03/2011 08:30 AM ALT 24 07/08/2022 01:10 PM ALT 32 10/26/2019 10:36 AM documented in this encounter Plan of Treatment Upcoming Encounters Date Type Specialty Care Team Description 12/17/2022 Office Visit Cardiology Wellington Parrish PA-C [address] [place] [address] 01/07/2023 Office Visit Hematology Oncology Gar[facility]ado [facility] [address] 01/11/2023 Office Visit Urology Torrey Abdi MD [address] [facility] [address] [place] [address] 01/14/2023 Nurse Only Ancillary Nurse Candice [address] [place] [address] 01/27/2023 Nurse Only Urology Darrick, Nurse Urology Geoff [address] [place] [address] 03/02/2023 Cardiac Studies Cardiology Candice, Pacer [facility] Geoff [place] [address] [place] [address] 04/20/2023 Office Visit Family Medicine Nicky Desouza PA-C [address] [place] [address] [place] [phone] 05/03/2023 Office Visit Family Medicine Anna King MD [address] [place] [address] [place] [id number] 08/10/2023 Cardiac Studies Cardiac Studies 2023 Office Visit Family Medicine [facility], Anna Macias MD [address] [place] [address] [place] [id number] Scheduled Procedures Name Priority Associated Diagnoses Date/Ti me COLONOSCOPY FLEXIBLE PROXIMAL DIAGNOSTIC Recall History of colon polyps Health Maintenance Due Date Last Done Comments COLONOSCOPY-EVERY 3 YRS AGES 18-100 12/17/2020 12/17/2017, 12/17/2017, 11/09/2014, Additional history exists COVID-19 Vaccine (2022- season) 2022 12/19/2021, 12/10/2020, 12/01/2020, Additional history exists Depression Screening 01/12/2023 01/12/2022, 05/19/19 18 Albumin/Creatinine Ratio 02/13/2023 02/13/2022, 10/09 CKD PHOS USE SMARTSET 68119 02/13/202307/2022, 02/11/2021, 03/04/2020, Additional history exists GFR 04/20/2023 10/20/2022, 06/10, 06/04/2022, Additional history exists CKD HGB USE SMARTSET 47205 10/21/202310/20, 10/20/2022, 07/08/2022, Additional history exists TSH [...] as of this encounter Visit Diagnoses Diagnosis Restless legs syndrome Restless legs syndrome (RLS) documented in this encounter Care Teams Cardiology Technician Relationship Specialty Start Date End Date Anna King MD [address] [place] [address] [place] [id number] PCP - General Family Medicine 07/24/13 documented as of this encounter
--- OUTSIDE RECORDS SUMMARY | 2023-01-02 23:05 | External Medical Summary | Summary of Care ---
Author Name Unknown Organization [facility] Address [address] [facility] [address] Phone [phone] Care Team Providers Care Sub Master Name Role Phone Anna King MD Primary Care Provide r Reason for Visit * Reason Onset Date Comments Medication Refill 11/19/2022 Encounter Details Date Type Department Care Team Description 11/19/2022 Refill Cardiology, [facility] [address] [place] [address] Minh Thapa PA-C [address] [place] [address] Allergies Active Allergy Reactions Severity Noted Date Comments Niacin 09/20/2002 niaspan-flushing Oxycodone-Acetaminophen 08/18/2014 Propoxyphene Napsylate 03/08/2003 rash documented as of this encounter (statuses as of 11/20/2022) Medications Medication Sig Dispensed Refills Start Date [...] A DAY 180 Each 1 03/11/2022 Active rOPINIRole HCl 1 MG Oral TabletIndications:Re stless legs syndrome Take 1 Tablet by mouth at bedtime. With food. For restless legs 90 Tablet 1 04/27/2022 Active Torsemide 20 MG Oral Tablet (Demadex)Indications [...] before bedtime. 180 Tablet 1 11/20/2022 Active Apixaban 2.5 MG Oral Tablet (Eliquis) Take 1 Tablet by mouth in the morning and 1 Tablet before bedtime. 180 Tablet 1 03/24/2022 3 Discontinue d(Refill) documented as of this encounter (statuses as of 11/20/2022) Active Problems Problem Noted Date 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 02/27/2020 Atherosclerotic heart diseas e of [place] coronary artery without angina pectoris 02/27/2020 Pancreas [...] as of this encounter (statuses as of 11/20/2022) Resolved Problems Problem Noted Date Resolved Date [...] as of this encounter (statuses as of 11/20/2022) Immunizations Name Administration Dates Next Due COVID-19 [...] encounter Miscellaneous Notes * Telephone Encounter - Yamila Chen RP - 11/20/2022 9:11 AM EDTSigned Prescriptions: Disp Refills Apixaban 2.5 MG Oral Tablet (Eliquis) 180 Ta*1 Sig: Take 1 Tablet by mouth in the morning and 1 Tablet before bedtime. Authorizing Provider: MINH THAPA Ordering User: YAMILA CHEN * Telephone Encounter - Clarita Snyder small engine mechanic - 11/19/2022 11:13 AM EDT Did you pend patient's preferred pharmacy and medication before forwarding?yes Pharmacy: [id number] [id number] [facility] Pending Prescriptions: Disp Refills Apixaban 2.5 MG Oral Tablet (Eliquis) 180 Ta*1 Sig: Take 1 Tablet by mouth in the morning and 1 Tablet before bedtime. Last Visit: 05/19/2021 (in office), Visit date not found (telemedicine) Next Visit: 12/17/2022 If no future appointments scheduled, and last appointment is greater than a year ago, please schedule patient for a follow-up appointment Last date the medication was ordered: 03/24/22 Is this request for a controlled substance?No [...] Care Team Description 12/17/2022 Office Visit Cardiology Minh Thapa PA-C [address] [place] [address] 01/07/2023 Office Visit Hematology Oncology [facility] [address] 01/11/2023 Office Visit Urology Torrey Abdi MD [address] [place] [address] [place] [address] 01/14/2023 Nurse Only Ancillary Candice Nurse [facility] [address] [place] [address] [place] [id number] 01/27/2023 Nurse Only Urology Darrick, Nurse Urology Geoff [address] [place] [address] 03/02/2023 Cardiac Studies Cardiology Candice, Pacer Clinic Geoff Hollingsworth [address] [place] [address] 04/20/2023 Office Visit Family Medicine Nicky Desouza PA-C [address] [place] [address] [place] [phone] 05/03/2023 Office Visit Family Anna Luis MD [address] [place] [address] [place] [id number] 08/10/2023 Cardiac Studies Cardiac Studies 2023 Office Visit Family Anna Luis MD [address] [place] [address] [place] [id number] Scheduled Procedures Name Priority Associated Diagnoses Date/Ti me COLONOSCOPY FLEXIBLE PROXIMAL DIAGNOSTIC Recall History of colon polyps Health Maintenance Due Date Last Done Comments COLONOSCOPY-EVERY 3 YRS AGES 18-100 12/17/2020 12/17/2017, 12/17/2017, 11/09/2014, Additional history exists COVID-19 Vaccine (2022- season) 2022 12/19/2021, 12/10/2020, 12/01/2020, Additional history exists Depression Screening 01/12/2023 01/12/2022, 05/19/19 18 Albumin/Creatinine Ratio 02/13/2023 02/13/2022, 10/09 CKD PHOS USE SMARTSET [id number] 02/13/2023/07/2022, 02/11/2021, 03/04/2020, Additional history exists GFR 04/20/2023 10/20/2022, 06/10, 06/04/2022, Additional history exists CKD HGB USE SMARTSET 66590 10/21/202310/20, 10/20/2022, 07/08/2022, Additional history exists TSH [...] filedocumented as of this encounter Care Teams Sub Master Relationship Specialty Start Date End Date Anna King MD [address] [place] [address] [place] [id number] PCP - General Family Medicine 07/24/13 documented as of this encounter
--- OUTSIDE RECORDS SUMMARY | 2023-01-02 23:05 | External Medical Summary | Summary of Care ---
Author Name Unknown Organization [facility] Address [address] [place] [address] Phone [phone] Care Team Providers Care Publishing Manager Name Role Phone Anna King MD Primary Care Provide r Reason for Visit * Reason Onset Date Comments Information 08/14/2022 Encounter Details Date Type Department Care Team Description 08/14/2022 Telephone Family Medicine [address] [phone] Anna King MD [address] [place], [place] [address] [address] Information Allergies Active Allergy Reactions Severity Noted Date Comments Niacin 09/20/2002 niaspan-flushing Oxycodone-Acetaminophen 08/18/2014 Propoxyphene Napsylate 03/08/2003 rash documented as of this encounter (statuses as of 11/13/2022) Medications Medication Sig Dispensed Refills Start Date [...] A DAY 180 Each 1 03/11/2022 Active Apixaban 2.5 MG Oral Tablet (Eliquis) Take 1 Tablet by mouth in the morning and 1 Tablet before bedtime. 180 Tablet 1 03/24/2022 Active rOPINIRole HCl 1 MG Oral TabletIndications:Re stless legs syndrome Take 1 Tablet by mouth at bedtime. With food. For restless legs 90 Tablet 1 04/27/2022 Active Torsemide 20 MG Oral Tablet (Demadex)Indications :Heart failure, diastolic, due to HTN (HCC) TAKE BY MOUTH 2 TABLETS IN THE MORNING. 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 Mixed dyslipidemia 06/09/2000 12/14/2008 Major depression, single episode 06/09/2000 11/30/2017 Benign prostatic hyperplasia Overview: ICD-10 update of inactive term ICD-10 update of inactive term documented as of this encounter (statuses as of 11/13/2022) Immunizations Name Administration Dates Next Due COVID-19 [...] Seasonal Influenza, Quadriva lent Hd (Fluzone Hd) 10/20/2021,10/24/2020 Seasonal Influenza, Quadriva lent, No Preserve, IM [...] Telephone Encounter - Anna King MD - 08/14/2022 9:39 AM EDT OK * Telephone Encounter - Nahed Lane LPN - 08/14/2022 8:59 AM EDT Provider to address: Anna King MD Reason for Call: Information Contact: Telephone Call Contact Type: Information Outcome: LION Dedra calling from [facility] pre-anesthesia. She stated that patients O2 was 88-90% Room Air when she completed PAT. She stated that patient passed a stress test and the anesthesiologist is OK to proceed without clearance from family PCP. Call back number for Dedra [phone] if you would have any questions Total Time including non face to face (minutes): 5 documented in this encounter Plan of Treatment Upcoming Encounters Date Type Specialty Care Team Description 12/17/2022 Office Visit Cardiology Wellington Parrish PA-C [address] [place] [address] 01/07/2023 Office Visit Hematology Oncology Garfield Preciado MD [address] [place], [place] [phone] 01/11/2023 Office Visit Urology Torrey Abdi MD [address] [address] [place] [id number] 01/14/2023 Nurse Only Ancillary Nurse Candice [address] [place] [id number] 01/27/2023 Nurse Only Urology Darrick, Nurse Urology Geoff [address] [place] [address] 03/02/2023 Cardiac Studies Cardiology Attila Harvey [address] [place] [address] 04/20/2023 Office Visit Family Medicine Nicky Desouza PA-C [address] [place] [address] [place] [phone] 05/03/2023 Office Visit Family Medicine Anna King MD [address] [place] [address] [place] [phone] 08/10/2023 Cardiac Studies Cardiac Studies 2023 Office Visit Family Medicine Anna King MD [address] [place] [address] [place] [phone] Scheduled Procedures Name Priority Associated Diagnoses Date/Ti me COLONOSCOPY FLEXIBLE PROXIMAL DIAGNOSTIC Recall History of colon polyps Health Maintenance Due Date Last Done Comments COLONOSCOPY-EVERY 3 YRS AGES 18-100 12/17/2020 12/17/2017, 12/17/2017, 11/09/2014, Additional history exists COVID-19 Vaccine (2022- season) 2022 12/19/2021, 12/10/2020, 12/01/2020, Additional history exists Depression Screening 01/12/2023 01/12/2022, 05/19/19 18 Albumin/Creatinine Ratio 02/13/2023 02/13/2022, 10/09 CKD PHOS USE SMARTSET 88054 02/13/202307/2022, 02/11/2021, 03/04/2020, Additional history exists GFR 04/20/2023 10/20/2022, 06/10, 06/04/2022, Additional history exists CKD HGB USE SMARTSET 93581 10/21/202310/20, 10/20/2022, 07/08/2022, Additional history exists TSH [...] filedocumented as of this encounter Care Teams Publishing Manager Relationship Specialty Start Date End Date Anna King MD [address] [place] [address] [place] [address] PCP - General Family Medicine 07/24/13 documented as of this encounter
--- OUTSIDE RECORDS SUMMARY | 2023-01-02 23:05 | External Medical Summary | Summary of Care ---
Author Name Unknown Organization [facility] Address [address] [place] [address] Phone [phone] Care Team Providers Care Fire Truck Driver Name Role Phone Anna King MD Primary Care Provide r Reason for Visit * Reason Onset Date Comments Medication Refill 11/09/2022 Encounter Details Date Type Department Care Team Description 11/09/2022 Refill Family Medicine [address] [phone] Anna King MD [address] [place] [address] [place] [phone] Allergies Active Allergy Reactions Severity Noted Date Comments Niacin 09/20/2002 niaspan-flushing Oxycodone-Acetaminophen 08/18/2014 Propoxyphene Napsylate 03/08/2003 rash documented as of this encounter (statuses as of 11/18/2022) Medications Medication Sig Dispensed Refills Start Date [...] before bedtime. 180 Tablet 1 11/09/2022 Active Metoprolol Tartrate 25 MG Oral Tablet (Lopressor) Take 1 Tablet by mouth in the morning and 1 Tablet before bedtime. 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 Authorizing Provider: ANNA KING * Telephone Encounter - Claudia Barnes RN - 11/09/2022 2:25 PM EDTPending Prescriptions: Disp Refills Metoprolol Tartrate 25 MG Oral Tablet (Lop*180 Ta*1 Sig: Take 1 Tablet by mouth in the morning and 1 Tablet before bedtime. * Telephone Encounter - Cheri Flood - 11/09/2022 1:50 PM EDT Did you pend patient's preferred pharmacy and medication before forwarding?yes Pharmacy: [id number] Pending Prescriptions: Disp Refills Metoprolol Tartrate 25 MG Oral Tablet (Lo*90 Tab*1 Sig: Take 1 Tablet by mouth in the morning and 1 Tablet before bedtime. Last Visit: 10/20/2022 (in office), Visit date not found (telemedicine) Next Visit: 04/20/2023 If no future appointments scheduled, and last appointment is greater than a year ago, please schedule patient for a follow-up appointment Last date the medication was ordered: 09/21/2022 Is this request for a controlled substance?No [...] Visit Cardiology Wellington Parrish PA-C [address] [facility] [place] [address] 01/07/2023 Office Visit Hematology Oncology Garfield [facility]ado [facility] [address] [facility] [address] 01/11/2023 Office Visit Urology Torrey Abdi MD [address] [place] [address] [place] [phone] 01/14/2023 Nurse Only Ancillary Candice, Nurse Annual [address] [place] [id number] 01/27/2023 Nurse Only Urology Darrick, Nurse Urology [facility] [address] [place] [address] 03/02/2023 Cardiac Studies Cardiology Candice, Pacer [facility] [address] [place] [address] 04/20/2023 Office Visit Family Medicine Nicky Desouza PA-C [address] [place] [address] [place] [id number] 05/03/2023 Office Visit Family Medicine Anna King MD [address] [place] [address] [place] [phone] 08/10/2023 Cardiac Studies Cardiac Studies 2023 Office Visit Family Anna Luis MD [address] [place] [address] [place] [phone] Scheduled Procedures Name Priority Associated Diagnoses Date/Ti me COLONOSCOPY FLEXIBLE PROXIMAL DIAGNOSTIC Recall History of colon polyps Health Maintenance Due Date Last Done Comments COLONOSCOPY-EVERY 3 YRS AGES 18-100 12/17/2020 12/17/2017, 12/17/2017, 11/09/2014, Additional history exists COVID-19 Vaccine ( season) 2022 12/19/2021, 12/10/2020, 12/01/2020, Additional history exists Depression Screening 01/12/2023 01/12/2022, 05/19/19 18 Albumin/Creatinine Ratio 02/13/2023 02/13/2022, 10/09 CKD PHOS USE SMARTSET 99060 02/13/202307/2022, 02/11/2021, 03/04/2020, Additional history exists GFR 04/20/2023 10/20/2022, 06/10, 06/04/2022, Additional history exists CKD HGB USE SMARTSET 88208 10/21/202310/20, 10/20/2022, 07/08/2022, Additional history exists TSH [...] filedocumented as of this encounter Care Teams Fire Truck Driver Relationship Specialty Start Date End Date Anna King MD [address] [place] [address] [place] [phone] PCP - General Family Medicine 07/24/13 documented as of this encounter
--- OUTSIDE RECORDS SUMMARY | 2023-01-02 23:05 | External Medical Summary | Summary of Care ---
Author Name Unknown Organization [facility] [address] [facility] [address] Phone [phone] Care Team Providers Care Manager Nuclear Name Role Phone Anna King MD Primary Care Provide r Reason for Visit * Reason Onset Date Comments Advice 11/30/2022 Encounter Details Date Type Department Care Team (Late st Contact Info) Description 11/30/2022 Telephone Cardiology, [facility] [address] [place] [address] Wellington Parrish PA-C [address] [place] [address] Advice Allergies Active Allergy Reactions Criticality Noted Date Comments Niacin 09/20/2002 niaspan-flushing Oxycodone-Acetaminophen 08/18/2014 Propoxyphene Napsylate 03/08/2003 rash documented as of this encounter (statuses as of 11/30/2022) Medications Medication Sig Dispensed Refills Start Date [...] as of this encounter (statuses as of 11/30/2022) Active Problems Problem Noted Date Diagnosed Date [...] 02/26/19 21 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 Patient's spouse stated he would need to travel by ambulance as he is that weak and they can't even get him out of bed to use the bathroom. Patient's spouse informed patient would benefit from going to ED for evaluation. Patient's spouse agreed and will take patient to ED. * Telephone Encounter - Wellington Parrish PA-C - 11/30/2022 9:31 AM EDT Has both lung and heart issues. ? Nebulizer treatments helpful. Recommend evaluation. Wellington Parrish PA-C Department of Cardiology * Telephone Encounter - Shailesh [place] LPN - 11/30/2022 9:03 AM EDT Patient's called in and stated patient is having "rattling" in chest when breathing, SOB and weakness in legs and really couldn't get out of bed due to issues with legs. Patient has increased Torsemide 4 tablets in the morning a few times over the last month. Patient denies chest pain and palpitations. Patient was doing PT due to hip surgery but seems to be regressing. Please advise. Asking for advice or if appointment is needed. documented in this encounter Plan of Treatment Upcoming Encounters Date Type Department Care Team (Late st Contact Info) Description 12/17/2022 10:00 AM EST Office Visit Cardiology [address] [place] [phone] Wellington Parrish PA-C 132 [facility] [place] [address] 01/07/2023 2:15 PM EST Office Visit Hematology/Oncology [facility] [address] [place] [address] Garfield Preciado MD [address] [place] [address] 01/11/2023 11:15 AM EST Office Visit Urology, [facility] 132 [facility] [place] [address] Torrey Abdi MD [address] [address] [place] [address] 01/14/2023 10:00 AM EST Nurse Only Ancillary [address] [place] [address] Candice, Nurse [address] [place] [address] 01/27/2023 1:00 PM EST Nurse Only Urology, [facility] [place] [address] [address] [facility] [address] [place] [address] 03/02/2023 10:30 AM EST Cardiac Studies Cardiology [address] [place] [address] Candice Pacer [facility] [address] [place] [address] 04/20/2023 10:00 AM EDT Office Visit [address] [place] [phone] Nicky Desouza PA-C [address] [place] [address] [place] [address] 05/03/2023 11:00 AM EDT Office Visit [address] [place] [phone] Anna King MD [address] [place] [address] [place] [address] 08/10/2023 2:30 PM EDT Cardiac Studies Cardiac Studies [address] [place] [address] 2023 10:00 AM EDT Office Visit [address] [place] [phone] Anna King MD [address] [place] [address] [place] [id number] Scheduled Procedures Name Priority Associated Diagnoses Date/Ti me COLONOSCOPY FLEXIBLE PROXIMAL DIAGNOSTIC Recall History of colon polyps Health Maintenance Due Date Last Done Comments COLONOSCOPY-EVERY 3 YRS AGES 18-100 12/17/2020 12/17/2017, 12/17/2017, 11/09/2014, Additional history exists COVID-19 Vaccine (2022- season) 2022 12/19/2021, 12/10/2020, 12/01/2020, Additional history exists Depression Screening 01/12/2023 01/12/2022, 05/19/19 18 Albumin/Creatinine Ratio 02/13/2023 02/13/2022, 10/09 CKD PHOS USE SMARTSET 91780 02/13/202307/2022, 02/11/2021, 03/04/2020, Additional history exists GFR 04/20/2023 10/20/2022, 06/10, 06/04/2022, Additional history exists CKD HGB USE SMARTSET 84919 10/21/202310/20, 10/20/2022, 07/08/2022, Additional history exists TSH [...] filedocumented as of this encounter Care Teams Manager Nuclear Relationship Specialty Start Date End Date Anna King MD [address] [place] [address] [place] [phone] PCP - General Family Medicine 07/24/13 documented as of this encounter
--- OUTSIDE RECORDS SUMMARY | 2023-01-02 23:05 | External Medical Summary | Summary of Care ---
Author Name Unknown Organization [facility] Address [address] [place] [address] Phone [phone] Care Team Providers Care Product Support Analyst Name Role Phone Anna King MD Primary Care Provide r Reason for Visit * Reason Onset Date Comments Update 12/03/2022 [facility] Encounter Details Date Type Department Care Team (Late st Contact Info) Description 12/03/2022 Telephone Sleep Disorders Ctr 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 * Telephone Encounter - Jessica Mcclure CMA - 12/04/2022 9:27 AM EDT Spoke with She states he likes this so much better then other nebs. Tolerating well and is seeing benefits from it * Telephone Encounter - Magalys Dexter CRNP - 12/03/2022 9:52 PM EDT Please see if Myron is using the 3% saline nebs twice a day. Have they been tolerated? Is he benefiting? Thanks! documented in this encounter Plan of Treatment Upcoming Encounters Date Type Department Care Team (Late st Contact Info) Description 12/17/2022 10:00 AM EST Office Visit Cardiology [address] [place] [address] Wellington Parrish PA-C [address] [place] [address] 01/07/2023 2:15 PM EST Office Visit Hematology/Oncology [facility] [address] [place] [address] Garfield Preciado MD [address] [place] [address] 01/11/2023 11:15 AM EST Office Visit Urology, [facility] [address] [place] [address] Torrey Abdi MD 27 [facility] [address] [place] [address] 01/14/2023 10:00 AM EST Nurse Only Ancillary [address] [place] [address] Candice Nurse [address] [place] [address] 01/27/2023 1:00 PM EST Nurse Only Urology, [facility] [address] [place] [address] [facility], Nurse Urology [facility] 132 [facility] [place] [address] 03/02/2023 10:30 AM EST Cardiac Studies Cardiology [address] [place] [phone] Candice, Pacer Clinic [facility] [address] [place] [address] 04/20/2023 10:00 AM EDT Office Visit Family Medicine [address] [place] [phone] Nicky Desouza PA-C [address] [place] [address] [place] [address] 05/03/2023 11:00 AM EDT Office Visit Family [address] [place] [phone] Anna King MD [address] [place] [address] [place] [address] 08/10/2023 2:30 PM EDT Cardiac Studies Cardiac Studies [address] [place] [address] 2023 10:00 AM EDT Office Visit [address] [place] [phone] Anna King MD [address] [place] [address] [place] [phone] Scheduled Procedures Name Priority Associated Diagnoses Date/Ti me COLONOSCOPY FLEXIBLE PROXIMAL DIAGNOSTIC Recall History of colon polyps Health Maintenance Due Date Last Done Comments COLONOSCOPY-EVERY 3 YRS AGES 18-100 12/17/2020 12/17/2017, 12/17/2017, 11/09/2014, Additional history exists COVID-19 Vaccine (2022- season) 2022 12/19/2021, 12/10/2020, 12/01/2020, Additional history exists Depression Screening 01/12/2023 01/12/2022, 05/19/19 18 Albumin/Creatinine Ratio 02/13/2023 02/13/2022, 10/09 CKD PHOS USE SMARTSET 07180 02/13/202307/2022, 02/11/2021, 03/04/2020, Additional history exists GFR 04/20/2023 10/20/2022, 06/10, 06/04/2022, Additional history exists CKD HGB USE SMARTSET 01913 10/21/202310/20, 10/20/2022, 07/08/2022, Additional history exists TSH [...] filedocumented as of this encounter Care Teams Product Support Analyst Relationship Specialty Start Date End Date Anna King MD [address] [place] [address] [place] [phone] PCP - General Family Medicine 07/24/13 documented as of this encounter
--- OUTSIDE RECORDS SUMMARY | 2023-01-02 23:05 | External Medical Summary | Summary of Care ---
Author Name Unknown Organization [facility] Address [address] [facility] [place] [address] Phone [phone] Care Team Providers Care Physical Meteorologist Name Role Phone Anna King MD Primary Care Provide r Reason for Referral * Precert (Within 10 days (routine)) - Authorized Specialty Diagnoses / Procedures Referred By Contnoy t Referred To Contact Diagnoses Esophageal dysphagia Procedures ESOPHAGEAL MOTILITY STUDY Kiran Lucia MD [address] [place] [id number] Referral ID Status Reason Start Date Expiration Date V isits Requested Visits Authorized [id number] Authorized 12/15/2022 [id number] Encounter Details Date Type Department Care Team (Late st Contact Info) Description 12/15/2022 Telephone Gastroenterology, [facility] [address] [place] [address] Kiran Lucia MD 132 [employer] [place] [address] Allergies Active Allergy Reactions Criticality Noted Date [...] chronic 02/26/19 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 documented in this encounter Plan of Treatment Upcoming Encounters Date Type Department Care Team (Late st Contact Info) Description 01/07/2023 2:15 PM EST Office Visit Hematology/[facility] [address] [place] [address] Garfield Preciado MD [address] [place] [address] 01/11/2023 11:15 AM EST Office Visit Urology, [facility] 132 [facility] [place] [address] Torrey Abdi MD 27 [facility] 270 [place] [address] 01/14/2023 10:00 AM EST Nurse Only Ancillary [address] [place] [address] Nurse Candice [address] [place] [address] 01/27/2023 1:00 PM EST Nurse Only Urology, [facility] 132 [facility] [place] [address] [facility] 132 [facility] [place] [address] 03/02/2023 10:30 AM EST Cardiac Studies Cardiology [address] [place] [address] Candice Pacer Clinic [facility] 132 [facility] [place] [address] 04/20/2023 10:00 AM EDT Office Visit Family Medicine [address] [place] [phone] Nicky Desouza PA-C [address] [place] [address] [place] [address] 05/03/2023 11:00 AM EDT Office Visit Family Medicine [address] [place] [phone] Anna King MD [address] [place] [address] [place] [address] 08/10/2023 2:30 PM EDT Cardiac Studies Cardiac Studies [address] [place] [address] 2023 10:00 AM EDT Office Visit Family Medicine [address] [place] [phone] Anna King MD [address] [place] [address] [place] [id number] Scheduled Orders Name Type Priority Associated Diagnoses [...] 02/13/2023 02/13/2022, 10/09 CKD PHOS USE SMARTSET 17228 02/13/202307/2022, 02/11/2021, 03/04/2020, Additional history exists GFR 04/20/2023 10/20/2022, 06/10, 06/04/2022, Additional history exists CKD HGB USE SMARTSET 78000 10/21/202310/20, 10/20/2022, 07/08/2022, Additional history exists TSH [...] phase documented in this encounter Care Teams Physical Meteorologist Relationship Specialty Start Date End Date Anna King MD [address] [place] [address] [place] [phone] PCP - General Family Medicine 07/24/13 documented as of this encounter
--- OUTSIDE RECORDS SUMMARY | 2023-01-02 23:05 | External Medical Summary | Summary of Care ---
Author Name Unknown Organization [facility] Address [address] [place] [address] Phone [phone] Care Team Providers Care Sheet Tailer Name Role Phone Anna King MD Primary Care Provide r Encounter Details Date Type Department Care Team (Late st Contact Info) Description 12/09/2022 Orders Only Family Medicine [address] [phone] Anna King MD [address] [place] [address] [place] [phone] Allergies Active Allergy Reactions Criticality Noted Date Comments Niacin 09/20/2002 niaspan-flushing Oxycodone-Acetaminophen 08/18/2014 Propoxyphene Napsylate 03/08/2003 rash documented as of this encounter (statuses as of 12/11/2022) Medications Medication Sig Dispensed Refills Start Date [...] as of this encounter (statuses as of 12/11/2022) Active Problems Problem Noted Date Diagnosed Date [...] 02/26/19 21 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 Pancreas [...] as of this encounter (statuses as of 12/11/2022) Resolved Problems Problem Noted Date Diagnosed Date [...] as of this encounter (statuses as of 12/11/2022) Immunizations Name Administration Dates Next Due COVID-19 [...] 12/17/2022 10:00 AM EST Office Visit Cardiology [address] [place] [address] Wellington Parrish PA-C 132 [facility] [place] [address] 01/07/2023 2:15 PM EST Office Visit Hematology/Oncology [facility] 200 [facility] [place] [address] Garfield Preciado MD [address] [place] [address] 01/11/2023 11:15 AM EST Office Visit Urology, [facility] [address] [place] [address] Torrey Abdi MD [facility] [address] [place] [address] 01/14/2023 10:00 AM EST Nurse Only Ancillary [address] [place] [address] [place], Nurse [address] [place] [address] 01/27/2023 1:00 PM EST Nurse Only [facility], [facility] [address] [address] [place], Nurse [facility] [address] [place] [address] 03/02/2023 10:30 AM EST Cardiac Studies Cardiology [address] [place] [address] [place], Pacer Clinic [facility] [address] [place] [address] 04/20/2023 10:00 AM EDT Office Visit [address] [place] [phone] Nicky Desouza PA-C [address] [place] [address] [place] [address] 05/03/2023 11:00 AM EDT Office Visit [address] [place] [phone] Anna King MD [address] [place] [address] [place] [address] 08/10/2023 2:30 PM EDT Cardiac Studies Cardiac Studies [address] [place] [address] 2023 10:00 AM EDT Office Visit [address] [place] [phone] Anna King MD [address] [place] [address] [place] [address] Scheduled Procedures Name Priority Associated Diagnoses Date/Ti me COLONOSCOPY FLEXIBLE PROXIMAL DIAGNOSTIC Recall History of colon polyps Health Maintenance Due Date Last Done Comments COLONOSCOPY-EVERY 3 YRS AGES 18-100 12/17/2020 12/17/2017, 12/17/2017, 11/09/2014, Additional history exists COVID-19 Vaccine ( season) 2022 12/19/2021, 12/10/2020, 12/01/2020, Additional history exists Depression Screening 01/12/2023 01/12/2022, 05/19/19 18 Albumin/Creatinine Ratio 02/13/2023 02/13/2022, 10/09 CKD PHOS USE SMARTSET 79426 02/13/202307/2022, 02/11/2021, 03/04/2020, Additional history exists GFR 04/20/2023 10/20/2022, 06/10, 06/04/2022, Additional history exists CKD HGB USE SMARTSET 98041 10/21/202310/20, 10/20/2022, 07/08/2022, Additional history exists TSH [...] interpreted or resulted by a [facility] or [facility] contracted radiologist. Anna King MD RAD CT documented in this encounter Care Teams Sheet Tailer Relationship Specialty Start Date End Date Anna King MD [address] [place] [address] [place] [address] PCP - General Family Medicine 07/24/13 documented as of this encounter
--- OUTSIDE RECORDS SUMMARY | 2023-01-02 23:06 | External Medical Summary | Summary of Care ---
Author Name Unknown Organization [facility] Address [address] [facility] [place] [address] Phone [phone] Care Team Providers Care Export Specialist Name Role Phone Anna King MD Primary Care Provide r Reason for Visit * Reason Comments Nurse Documentation * Precert (Within 10 days (routine)) - Authorized Specialty Diagnoses / Procedures Referred By Contac t Referred To Contact Diagnoses Malignant neoplasm of prostate (HCC) Procedures OK LEUPROLIDE ACETATE SUSPNSION Torrey Abdi MD 27 [facility] [place] [address] [place] [address] Torrey Abdi MD [address] [place] [address] [place] [address] Referral ID Status Reason Start Date Expiration Date V isits Requested Visits Authorized [id number] Authorized Precert 03/27/2022 02/07/2099 999 999 Encounter Details Date Type Department Care Team Description 10/27/2022 [facility] [address] [place] [address] Nurse Darrick Urology Geoff [address] [place] [address] Nurse Documentation Allergies Active Allergy Reactions Severity Noted Date Comments Niacin 09/20/2002 niaspan-flushing Oxycodone-Acetaminophen 08/18/2014 Propoxyphene Napsylate 03/08/2003 rash documented as of this encounter (statuses as of 10/27/2022) Medications Medication Sig Dispensed Refills Start Date [...] at bedtime 30 Tablet 0 02/19/2022 Active Albuterol Sulfate HFA 108 (90 Base) MCG/ACT Inhalation Aerosol SolutionIndications:R estrictive lung disease INHALE 2 PUFFS THREE TIMES DAILY 18 g 2 03/09/2022 Active Fluticasone-Salmetero l 250-50 MCG/ACT Inhalation Aerosol Powder Breath Activated (Wixela Inhub)Indications:Ast hma, mild persistent TAKE 1 PUFF BY MOUTH TWICE A DAY 180 Each 1 03/11/2022 Active Apixaban 2.5 MG Oral Tablet (Eliquis) Take 1 Tablet by mouth in the morning and 1 Tablet before bedtime. 180 Tablet 1 03/24/2022 Active rOPINIRole HCl 1 MG Oral TabletIndications:Res tless legs syndrome Take 1 Tablet by mouth at bedtime. With food. For restless legs 90 Tablet 1 04/27/2022 Active Torsemide 20 MG Oral Tablet (Demadex)Indications: [...] Urology, depending on his PSA. 0 Active Metoprolol Tartrate 25 MG Oral Tablet (Lopressor) Take 1 Tablet by mouth in the morning and 1 Tablet before bedtime. 90 Tablet 1 09/21/2022 Active dilTIAZem HCl ER 180 MG Oral Capsule Extended Release 24 Hour TAKE 1 CAPSULE BY MOUTH EVERY DAY IN THE MORNING 90 Capsule 3 09/25/2022 Active Levothyroxine Sodium 75 MCG Oral Tablet (Levoxyl)Indications: Acquired hypothyroidism TAKE 1 TABLET BY MOUTH EVERY DAY (AT LEAST 30 MINUTES PRIOR TO BREAKFAST OR OTHER MEDICATIONS) 90 Tablet 2 09/25/2022 Active Hospital, Clinic, or Other Facility Administered Medication Ordered Dose Route Frequency Start Date End Date Status Leuprolide Acetate (3 Month) (Lupron) inj 22.5 mgIndications:Prostate cancer (HCC) 22.5 mg IM ONCE 10/27/2022 10/27/2022 Ended documented as of this encounter (statuses as of 10/27/2022) Active Problems Problem Noted Date 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 Mixed dyslipidemia 06/09/2000 12/14/2008 Major depression, single episode 06/09/2000 11/30/2017 Benign prostatic hyperplasia Overview: ICD-10 update of inactive term ICD-10 update of inactive term documented as of this encounter (statuses as of 10/27/2022) Immunizations Name Administration Dates Next Due COVID-19 mRNA, LNP-s, No Pre serve, 2-Dose Series (Moderna) 12/01/2020,04/17/2020,03/20/2020 COVID-19, mRNA, LNP-s, PF, B ooster, 100mcg/0.5mg (Moderna) 12/10/2020 Covid-19, Mrna, Lnp-s, Pf, B ivalent, 50 Mcg, IM, 12 yrs and above (Moderna) 12/19/2021 Hepatitis B, 20+ yrs 11/11/2011,06/10/2011,05/12 Pneumococcal Conjugate Vacc, 13 Valent (Prevnar) 04/17/2014 Pneumococcal Polysaccharide PPV23 (Pneumovax) 06/13/2008 Season Influenza, Quad, PF, Adjuvanted, 65+ Yrs, IM (FLUAD) 10/26/2019 Seasonal Influenza, PF, 6 mo ns & Above, IM , (Flulaval) 11/05/2018,11/30/2017,11/30/2016 Seasonal Influenza, Quadriva lent Hd (Fluzone Hd) [...] on file documented as of this encounter Nursing Notes * Allyson Vaca LPN - 10/27/2022 11:15 AM EDT Lupron 22.5 Mg was given IM in [facility] documented in this encounter Plan of Treatment Upcoming Encounters Date Type Specialty Care Team Description 10/30/2022 Office Visit Sleep Disorders Magalys Dexter CRNP [address] [place] [address] 12/17/2022 Office Visit Cardiology Wellington Parrish PA-C [address] [place] [address] 01/07/2023 Office Visit Hematology Oncology Garfield Preciado MD [address] [place] [address] 01/11/2023 Office Visit Urology Torrey Abdi MD 27 [facility] [place] [address] [place] [address] 01/14/2023 Nurse Only Ancillary Candice, Nurse Annual [address] [place] [address] 03/02/2023 Cardiac Studies Cardiology [facility]ice [facility] 132 [facility] [place] [address] 04/20/2023 Office Visit Family Medicine Nicky Desouza PA-C [address] [place] [address] [place] [address] 05/03/2023 Office Visit Family Medicine Anna King MD [address] [place] [address] [place] [address] 08/10/2023 Cardiac Studies Cardiac Studies 2023 Office Visit Family Medicine Anna King MD [address] [place] [address] [place] [phone] Scheduled Procedures Name Priority Associated Diagnoses Date/Ti me COLONOSCOPY FLEXIBLE PROXIMAL DIAGNOSTIC Recall History of colon polyps Health Maintenance Due Date Last Done Comments COLONOSCOPY-EVERY 3 YRS AGES 18-100 12/17/2020 12/17/2017, 12/17/2017, 11/09/2014, Additional history exists Depression Screening 01/12/2023 01/12/2022, 05/19/19 18 Albumin/Creatinine Ratio 02/13/2023 02/13/2022, 10/09 CKD PHOS USE SMARTSET 04424 02/13/2023/07/2022, 02/11/2021, 03/04/2020, Additional history exists GFR 04/20/2023 10/20/2022, 06/10, 06/04/2022, Additional history exists CKD HGB USE SMARTSET 52746 10/21/202310/20, 10/20/2022, 07/08/2022, Additional history exists TSH 10/21/2023 10/20/2022, 05/10, 02/13/2022, Additional history exists DTaP,Tdap,and Td Vaccines (2 - Td or Tdap) 06/02/2027 06/01/2017, 12/14/2007 Hepatitis B Completed 11/11/2011, 03/2011, 05/13/2011 Pneumococcal Vaccine: 65+ Years Completed 04/17/2014, 06/13/2008 Zoster Vaccines Completed 05/03/2020, 05/2019, 05/05/2010 COVID-19 Vaccine Completed 12/19/2021, 03/2020, 12/01/2020, Additional history exists Influenza Vaccine (FLU shot) Completed 01/2023, 10/20/2021, 10/24/2020, Additional history exists GARDASIL-HPV IMMUNIZATION SERIES Aged Out No longer eligible based on patient's age to complete this topic MENINGOCOCCAL (MENACTRA/MENVEO) Aged Out No longer eligible based on patient's age to complete this topic documented as of this encounter Medical Devices Not on filedocumented as of this encounter Visit Diagnoses Diagnosis Prostate cancer (HCC)- Primary Malignant neoplasm of prostate documented in this encounter Administered Medications Inactive Administered Medications - up to 3 most recent administrations Medication Order MAR Action Action Date Dose Rate Site Leuprolide Acetate (3 Month) (Lupron) inj 22.5 mg 22.5 mg, Intramuscular, ONCE, On Wed10/27/22 at 1700, For 1 dose Given 10/27/2022 4:30 PM EDT 22.5 mg Dorsogluteal Right documented in this encounter Care Teams Export Specialist Relationship Specialty Start Date End Date Anna King MD [address] [place] [address] [place] [phone] PCP - General Family Medicine 07/24/13 documented as of this encounter
--- OUTSIDE RECORDS SUMMARY | 2023-01-02 23:06 | External Medical Summary | Summary of Care ---
Author Name Unknown Organization [facility] Address [address] [place] [address] Phone [phone] Care Team Providers Care Geospatial Specialist Name Role Phone Anna King MD Primary Care Provide r Encounter Details Date Type Department Care Team Description 11/05/2022 Result Scan Unspecified Department Janiya Whitman, DO 400 [facility] [place] [id number] <No scans attached> Allergies Active Allergy Reactions Severity Noted Date Comments Niacin 09/20/2002 niaspan-flushing Oxycodone-Acetaminophen 08/18/2014 Propoxyphene Napsylate 03/08/2003 rash documented as of this encounter (statuses as of 11/05/2022) Medications Medication Sig Dispensed Refills Start Date [...] TIMES DAILY 18 g 2 11/04/2022 Active documented as of this encounter (statuses as of 11/05/2022) Active Problems Problem Noted Date 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 02/27/2020 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 Pancreas [...] as of this encounter (statuses as of 11/05/2022) Resolved Problems Problem Noted Date Resolved Date [...] as of this encounter (statuses as of 11/05/2022) Immunizations Name Administration Dates Next Due COVID-19 [...] Parrish PA-C [address] [place] [address] 01/07/2023 Office Visit Hematology Oncology Garfield Preciado MD 200 [place], [place] [phone] 01/11/2023 Office Visit Urology Torrey Abdi MD 27 [facility] 270 [place] [address] 01/14/2023 Nurse Only Ancillary Nurse Candice [address] [place] [address] 01/27/2023 Nurse Only Urology Darrick, Nurse Urology Geoff [address] [place] [address] 03/02/2023 Cardiac Studies Cardiology Attila Harvey [address] [place] [address] 04/20/2023 Office Visit Family Medicine Nicky Desouza PA-C [address] [place] [address] [place] [address] 05/03/2023 Office Visit Family Medicine Anna King MD [address] [place] [address] [place] [address] 08/10/2023 Cardiac Studies Cardiac Studies 2023 Office Visit Family Medicine Anna King MD [address] [place] [address] [place] [address] Scheduled Procedures Name Priority Associated Diagnoses Date/Ti me COLONOSCOPY FLEXIBLE PROXIMAL DIAGNOSTIC Recall History of colon polyps Health Maintenance Due Date Last Done Comments COLONOSCOPY-EVERY 3 YRS AGES 18-100 12/17/2020 12/17/2017, 12/17/2017, 11/09/2014, Additional history exists Depression Screening 01/12/2023 01/12/2022, 05/19/19 18 Albumin/Creatinine Ratio 02/13/2023 02/13/2022, 10/09 CKD PHOS USE SMARTSET 92791 02/13/202307/2022, 02/11/2021, 03/04/2020, Additional history exists GFR 04/20/2023 10/20/2022, 06/10, 06/04/2022, Additional history exists CKD HGB USE SMARTSET 61378 10/21/202310/20, 10/20/2022, 07/08/2022, Additional history exists TSH [...] Procedure Name Priority Date/Time Associated Diagnosis Comments CARDIOLOGY SCANNED RESULT 11/05/2022 documented in this encounter Results * CARDIOLOGY SCANNED RESULT (11/05/2022) 11/05/2022 Janiya Whitman DO OTHER documented in this encounter Care Teams Geospatial Specialist Relationship Specialty Start Date End Date Anna King MD [address] [place] [address] [place] [phone] PCP - General Family Medicine 07/24/13 documented as of this encounter
--- OUTSIDE RECORDS SUMMARY | 2023-01-02 23:06 | External Medical Summary | Summary of Care ---
Author Name Unknown Organization [facility] Address [address] [place] [facility] [place] [place] [address] Phone [phone] Care Team Providers Care Cylinder Die Machine Helper Name Role Phone Anna King MD Primary Care Provide r Reason for Visit * Reason Comments Nurse Documentation * Precert (Within 10 days (routine)) - Authorized Specialty Diagnoses / Procedures Referred By Contac t Referred To Contact Diagnoses Malignant neoplasm of prostate (HCC) Procedures [place] LEUPROLIDE ACETATE SUSPNSION Torrey Abdi MD 27 [facility] [place] [address] [place] [address] Torrey Abdi MD [address] [place] [address] [place] [address] Referral ID Status Reason Start Date Expiration Date V isits Requested Visits Authorized [id number] Authorized Precert 03/27/2022 02/07/2099 999 999 Encounter Details Date Type Department Care Team Description [facility]/27[facility]2022 [facility] [address] [place] [address] Nurse Darrick Urology Geoff [address] [place] [address] Nurse Documentation Allergies Active Allergy Reactions Severity [...] cancer (HCC) 22.5 mg IM ONCE 10/27/2022 10/28/2022 Active documented as of this encounter (statuses [...] chronic 02/27/2020 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 Pancreas [...] IIA(T1c, N0, M0, PSA: Less than 10, [place] 7) - Signed by Jace Means MD [...] Dexter CRNP [address] [place] [address] 12/17/2022 Office Visit Cardiology Wellington Parrish PA-C [address] [place] [address] 01/07/2023 Office Visit Hematology Oncology [place] Preciado MD 200 [facility] [place] [address] 01/11/2023 Office Visit Urology Torrey Abdi MD 27 [facility] [place] [address] [place] [address] 01/14/2023 Nurse Only Ancillary Candice, Nurse Annual [address] [place] [address] 03/02/2023 Cardiac Studies Cardiology Candice [facility] 132 [facility] [place] [address] 04/20/2023 Office Visit Family Medicine Nicky Desouza PA-C [address] [place] [address] [place] [address] 05/03/2023 Office Visit Family Medicine Anna King MD [address] [place] [address] [place] [address] 08/10/2023 Cardiac Studies Cardiac Studies 2023 Office Visit Family Medicine Anna King MD [address] [place] [address] [place] [address] Scheduled Procedures Name Priority Associated Diagnoses Date/Ti me COLONOSCOPY FLEXIBLE PROXIMAL DIAGNOSTIC Recall History of colon polyps Health Maintenance Due Date Last Done Comments COLONOSCOPY-EVERY 3 YRS AGES 18-100 12/17/2020 12/17/2017, 12/17/2017, 11/09/2014, Additional history exists Depression Screening 01/12/2023 01/12/2022, 05/19/19 18 Albumin/Creatinine Ratio 02/13/2023 02/13/2022, 10/09 CKD PHOS USE SMARTSET 73692 02/13/2023/07/2022, 02/11/2021, 03/04/2020, Additional history exists GFR 04/20/2023 10/20/2022, 06/10, 06/04/2022, Additional history exists CKD HGB USE SMARTSET 49813 10/21/202310/20, 10/20/2022, 07/08/2022, Additional history exists TSH [...] neoplasm of prostate documented in this encounter Care Teams Cylinder Die Machine Helper Relationship Specialty Start Date End Date Anna King MD [address] [place] [address] [place] [address] PCP - General Family Medicine 07/24/13 documented as of this encounter
--- OUTSIDE RECORDS SUMMARY | 2023-01-02 23:06 | External Medical Summary | Summary of Care ---
Author Name Unknown Organization [facility] Address [address] [place] [address] Phone [phone] Care Team Providers Care Sign Carpenter Name Role Phone Anna King MD Primary Care Provide r Encounter Details Date Type Department Care Team Description 10/28/2022 Telephone Urology, [facility] 132 [facility] [place] [address] Torrey Abdi MD 27 [facility] [place] [address] [place] [address] Allergies Active Allergy Reactions Severity Noted Date Comments Niacin 09/20/2002 niaspan-flushing Oxycodone-Acetaminophen 08/18/2014 Propoxyphene Napsylate 03/08/2003 rash documented as of this encounter (statuses as of 10/28/2022) Medications Medication Sig Dispensed Refills Start Date [...] OTHER MEDICATIONS) 90 Tablet 2 09/25/2022 Active documented as of this encounter (statuses as of 10/28/2022) Active Problems Problem Noted Date 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 02/27/2020 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 Please contact him to schedule next injection on nurse clinic in 3 months. Thank you Brianda documented in this encounter Plan of Treatment Upcoming Encounters Date Type Specialty Care Team Description 10/30/2022 Office Visit Sleep Disorders Magalys Dexter CRNP [address] [place] [address] 12/17/2022 Office Visit Cardiology Wellington Parrish PA-C [address] [place] [address] 01/07/2023 Office Visit Hematology Oncology [place] Preciado MD 200 [place] [address] 01/11/2023 Office Visit Urology Torrey Abdi MD 27 [facility] 270 [place] [address] 01/14/2023 Nurse Only Ancillary Candice, Nurse [address] [place] [address] 01/27/2023 Nurse Only Urology [place], Nurse Urology Geoff [address] [place] [address] 03/02/2023 Cardiac Studies Cardiology [place], Pacer Clinic Geoff [place] [address] [place] [address] 04/20/2023 Office Visit Family Medicine Nicky Desouza PA-C [address] [place] [address] [place] [address] 05/03/2023 Office Visit Family Medicine Anna King MD [address] [place] [address] [place] [address] 08/10/2023 Cardiac Studies Cardiac Studies 2023 Office Visit Family Anna Luis MD [address] [place] [address] [place] [address] Scheduled Procedures Name Priority Associated Diagnoses Date/Ti me COLONOSCOPY FLEXIBLE PROXIMAL DIAGNOSTIC Recall History of colon polyps Health Maintenance Due Date Last Done Comments COLONOSCOPY-EVERY 3 YRS AGES 18-100 12/17/2020 12/17/2017, 12/17/2017, 11/09/2014, Additional history exists Depression Screening 01/12/2023 01/12/2022, 05/19/19 18 Albumin/Creatinine Ratio 02/13/2023 02/13/2022, 10/09 CKD PHOS USE SMARTSET 37967 02/13/202307/2022, 02/11/2021, 03/04/2020, Additional history exists GFR 04/20/2023 10/20/2022, 06/10, 06/04/2022, Additional history exists CKD HGB USE SMARTSET 95923 10/21/202310/20, 10/20/2022, 07/08/2022, Additional history exists TSH [...] filedocumented as of this encounter Care Teams Sign Carpenter Relationship Specialty Start Date End Date Anna King MD [address] [place] [address] [place] [address] PCP - General Family Medicine 07/24/13 documented as of this encounter
--- OUTSIDE RECORDS SUMMARY | 2023-01-02 23:06 | External Medical Summary | Summary of Care ---
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 Pancreas [...] Parrish PA-C [address] [place] [address] 01/07/2023 Office Visit Hematology Oncology Garfield Preciado MD [address] [place], [place] [id number] 01/11/2023 Office Visit Urology Torrey Abdi MD 27 [facility] [address] [place] [address] 01/14/2023 Nurse Only Ancillary Nurse Candice [address] [place] [address] 01/27/2023 Nurse Only Urology Darrick, Nurse Urology Geoff [address] [place] [address] 03/02/2023 Cardiac Studies Cardiology Attila Harvey [address] [place] [address] 04/20/2023 Office Visit Family Medicine Nicky Desouza PA-C [address] [place] [address] [place] [address] 05/03/2023 Office Visit Family Medicine Anna King MD [address] [place] [address] [place] [address] 08/10/2023 Cardiac Studies Cardiac Studies 2023 Office Visit Family Medicine Anna King MD [address] [place] [address] [place] [address] Scheduled Procedures Name Priority Associated Diagnoses Date/Ti me COLONOSCOPY FLEXIBLE PROXIMAL DIAGNOSTIC Recall History of colon polyps Health Maintenance Due Date Last Done Comments COLONOSCOPY-EVERY 3 YRS AGES 18-100 12/17/2020 12/17/2017, 12/17/2017, 11/09/2014, Additional history exists Depression Screening 01/12/2023 01/12/2022, 05/19/19 18 Albumin/Creatinine Ratio 02/13/2023 02/13/2022, 10/09 CKD PHOS USE SMARTSET 35180 02/13/202307/2022, 02/11/2021, 03/04/2020, Additional history exists GFR 04/20/2023 10/20/2022, 06/10, 06/04/2022, Additional history exists CKD HGB USE SMARTSET 94220 10/21/202310/20, 10/20/2022, 07/08/2022, Additional history exists TSH [...] OTHER documented in this encounter Care Teams Manager Investment Banking Relationship Specialty Start Date End Date Anna King MD [address] [place] [address] [place] [id number] PCP - General Family Medicine 07/24/13 documented as of this encounter
--- OUTSIDE RECORDS SUMMARY | 2023-01-02 23:06 | External Medical Summary | Summary of Care ---
Author Name Unknown Organization [facility] Address [address] [place] [facility] [place] [address] Phone [phone] Care Team Providers Care Immunologist Name Role Phone Anna King MD Primary Care Provide r Reason for Visit * Reason Comments Nurse Documentation * Precert (Within 10 days (routine)) - Authorized Specialty Diagnoses / Procedures Referred By Contac t Referred To Contact Diagnoses Malignant neoplasm of prostate (HCC) Procedures IA LEUPROLIDE ACETATE SUSPNSION Torrey Abdi MD 27 [facility] [place] [address] [place] [address] Torrey Abdi MD [address] [place] [address] [place] [address] Referral ID Status Reason Start Date Expiration Date V isits Requested Visits Authorized [id number] Authorized Precert 03/27/2022 02/07/[phone] Encounter Details Date Type Department Care Team Description 10/27[facility] [address] [place] [address] Nurse Darrick Urology Geoff [address] [place] [address] Nurse Documentation Allergies Active Allergy Reactions Severity [...] chronic 02/27/2020 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 Pancreas [...] IIA(T1c, N0, M0, PSA: Less than 10, [place] 7) - Signed by Jace Means MD [...] Dexter CRNP [address] [place] [address] 12/17/2022 Office Visit Cardiology Wellington Parrish PA-C [address] [place] [address] 01/07/2023 Office Visit Hematology Oncology Garfield Preciado MD 200 [facility] [place] [address] 01/11/2023 Office Visit Urology Torrey Abdi MD 27 [facility] [place] [address] [place] [address] 01/14/2023 Nurse Only Ancillary Candice, Nurse Annual [address] [place] [address] 03/02/2023 Cardiac Studies Cardiology Candice [facility] 132 [facility] [place] [address] 04/20/2023 Office Visit Family Medicine Nicky Desouza PA-C [address] [place] [address] [place] [address] 05/03/2023 Office Visit Family Medicine Anna King MD [address] [place] [address] [place] [address] 08/10/2023 Cardiac Studies Cardiac Studies 2023 Office Visit Family Medicine Anna King MD [address] [place] [address] [place] [id number] Scheduled Procedures Name Priority Associated Diagnoses Date/Ti me COLONOSCOPY FLEXIBLE PROXIMAL DIAGNOSTIC Recall History of colon polyps Health Maintenance Due Date Last Done Comments COLONOSCOPY-EVERY 3 YRS AGES 18-100 12/17/2020 12/17/2017, 12/17/2017, 11/09/2014, Additional history exists Depression Screening 01/12/2023 01/12/2022, 05/19/19 18 Albumin/Creatinine Ratio 02/13/2023 02/13/2022, 10/09 CKD PHOS USE SMARTSET 59843 02/13/2023/07/2022, 02/11/2021, 03/04/2020, Additional history exists GFR 04/20/2023 10/20/2022, 06/10, 06/04/2022, Additional history exists CKD HGB USE SMARTSET 68929 10/21/202310/20, 10/20/2022, 07/08/2022, Additional history exists TSH [...] Right documented in this encounter Care Teams Immunologist Relationship Specialty Start Date End Date Anna King MD [address] [place] [address] [place] [id number] PCP - General Family Medicine 07/24/13 documented as of this encounter
--- OUTSIDE RECORDS SUMMARY | 2023-01-02 23:06 | External Medical Summary | Summary of Care ---
Author Name Unknown Organization [facility] Address [address] [place] [address] Phone [phone] Care Team Providers Care Assessment Nurse Practitioner Name Role Phone Anna King MD Primary Care Provide r Reason for Visit * Reason Onset Date Comments Medication Refill 11/03/2022 Encounter Details Date Type Department Care Team Description 11/03/2022 Refill Family Medicine [address] [phone] Anna King MD [address] [place] [address] [place] [id number] Restrictive lung disease Allergies Active Allergy Reactions Severity Noted Date Comments Niacin 09/20/2002 niaspan-flushing Oxycodone-Acetaminophen 08/18/2014 Propoxyphene Napsylate 03/08/2003 rash documented as of this encounter (statuses as of 11/04/2022) Medications Medication Sig Dispensed Refills Start Date [...] TIMES DAILY 18 g 2 11/04/2022 Active Albuterol Sulfate HFA 108 (90 Base) MCG/ACT Inhalation Aerosol SolutionIndications: Restrictive lung disease INHALE 2 PUFFS THREE TIMES DAILY 18 g 2 03/09/2022 3 Discontinue d(Refill) documented as of this encounter (statuses as of 11/04/2022) Active Problems Problem Noted Date 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 02/27/2020 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 Pancreas [...] as of this encounter (statuses as of 11/04/2022) Resolved Problems Problem Noted Date Resolved Date [...] as of this encounter (statuses as of 11/04/2022) Immunizations Name Administration Dates Next Due COVID-19 [...] encounter Miscellaneous Notes * Telephone Encounter - Demetrice Garay RPh - 11/04/2022 7:52 AM EDTSigned Prescriptions: Disp Refills Albuterol Sulfate HFA 108 (90 Base) MCG/AC*18 g 2 Sig: INHALE 2 PUFFS THREE TIMES DAILY Authorizing Provider: ANNA KING Ordering User: DEMETRICE GARAY * Telephone Encounter - Donna Ivory CPhT - 11/03/2022 10:17 AM EDT Did you pend patient's preferred pharmacy and medication before forwarding?yes Pharmacy: [id number] [facility] Pending Prescriptions: Disp Refills Albuterol Sulfate HFA 108 (90 Base) MCG/A*18 g 2 Last Visit: 10/20/2022 (in office), Visit date not found (telemedicine) Next Visit: 04/20/2023 If no future appointments scheduled, and last appointment is greater than a year ago, please schedule patient for a follow-up appointment Last date the medication was ordered: 03/09/2022 Is this request for a controlled substance?No [...] Cardiology Wellington Parrish PA-C [address] [place] [address] 01/07/2023 Office Visit Hematology Oncology Garfield Preciado MD 200 [facility] [address] 01/11/2023 Office Visit Urology Torrey Abdi MD [address] [place] [address] [place] [address] 01/14/2023 Nurse Only Ancillary Movlindaey, Nurse [address] [place] [address] 01/27/2023 Nurse Only Urology Darrick, Nurse Urology Geoff [address] [place] [address] 03/02/2023 Cardiac Studies Cardiology [place] Geoff Hollingsworth [address] [place] [address] 04/20/2023 Office Visit Family Medicine Nicky Desouza PA-C [address] [place] [address] [place] [address] 05/03/2023 Office Visit Family Medicine Anna King MD [address] [place] [address] [place] [address] 08/10/2023 Cardiac Studies Cardiac Studies 2023 Office Visit Family Anna Luis MD [address] [place] [address] [place] [address] Scheduled Procedures Name Priority Associated Diagnoses Date/Ti me COLONOSCOPY FLEXIBLE PROXIMAL DIAGNOSTIC Recall History of colon polyps Health Maintenance Due Date Last Done Comments COLONOSCOPY-EVERY 3 YRS AGES 18-100 12/17/2020 12/17/2017, 12/17/2017, 11/09/2014, Additional history exists Depression Screening 01/12/2023 01/12/2022, 05/19/19 18 Albumin/Creatinine Ratio 02/13/2023 02/13/2022, 10/09 CKD PHOS USE SMARTSET 27496 02/13/202307/2022, 02/11/2021, 03/04/2020, Additional history exists GFR 04/20/2023 10/20/2022, 06/10, 06/04/2022, Additional history exists CKD HGB USE SMARTSET 81563 10/21/202310/20, 10/20/2022, 07/08/2022, Additional history exists TSH [...] as of this encounter Visit Diagnoses Diagnosis Restrictive lung disease Other diseases of lung, not elsewhere classified documented in this encounter Care Teams Assessment Nurse Practitioner Relationship Specialty Start Date End Date Anna King MD [address] [place] [address] [place] [phone] PCP - General Family Medicine 07/24/13 documented as of this encounter
--- OUTSIDE RECORDS SUMMARY | 2023-01-02 23:06 | External Medical Summary | Summary of Care ---
Author Name Unknown Organization [facility] Address [address] [facility] [address] Phone [phone] Care Team Providers Care Ceramist Name Role Phone Anna King MD Primary Care Provide r Reason for Visit * Reason Comments Outpatient Testing Encounter Details Date Type Department Care Team Description 10/20/2022 Laboratory Laboratory [address] [place] [phone] [place] [phone] Hypertensive heart and kidney disease with chronic diastolic congestive heart failure and stage 3b chronic kidney disease (HCC); Acquired hypothyroidism Allergies Active Allergy Reactions Severity Noted Date Comments Niacin 09/20/2002 niaspan-flushing Oxycodone-Acetaminophen 08/18/2014 Propoxyphene Napsylate 03/08/2003 rash documented as of this encounter (statuses as of 10/20/2022) Medications Medication Sig Dispensed Refills Start Date [...] as of this encounter (statuses as of 10/20/2022) Active Problems Problem Noted Date 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 02/27/2020 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 Pancreas [...] as of this encounter (statuses as of 10/20/2022) Resolved Problems Problem Noted Date Resolved Date [...] IIA(T1c, N0, M0, PSA: Less than 10, [place] 7) - Signed by Jace Means MD [...] as of this encounter (statuses as of 10/20/2022) Immunizations Name Administration Dates Next Due COVID-19 [...] 02/08/1978 Smokeless Tobacco: Former Snuff, Chew Quit: 1969 Alcohol Use Standard Drinks/Week Comments Not Currently [...] Encounters Date Type Specialty Care Team Description 10/27/2022 Nurse Only Urology Nurse Nanette [place] Geoff [address] [place] [address] 10/28/2022 Office Visit Family Medicine Eliana Cason PA-C [address] [place] [address] [place] [address] 10/30/2022 Office Visit Sleep Disorders Magalys Dexter CRNP [address] [place] [address] 12/17/2022 Office Visit Cardiology Wellington Parrish PA-C [address] [place] [address] 01/07/2023 Office Visit Hematology Oncology Garfield Preciado MD [address] [place] [address] 01/11/2023 Office Visit Urology Torrey Abdi MD [address] [place] [place] [address] [place] [address] 01/14/2023 Nurse Only Ancillary Nurse Candice Annual [address] [place] [address] 03/02/2023 Cardiac Studies Cardiology Candice [facility] Geoff [place]ingsworth [address] [place] [address] 04/20/2023 Office Visit Family Medicine Nicky Desouza PA-C [address] [place] [address] [place] [address] 05/03/2023 Office Visit [facility] Anna Luis MD [address] [place] [address] [place] [address] 08/10/2023 Cardiac Studies Cardiac Studies 2023 Office Visit [facility] Anna Luis MD [address] [place] [address] [place] [phone] Pending Results Name Type Priority Associated Diagnoses Date /Time CBC WITH WBC DIFFERENTIAL AND ANEMIA REFLEX WORKUP Lab Routine Hypertensive heart and kidney disease with chronic diastolic congestive heart failure and stage 3b chronic kidney disease (HCC) 10/20/2022 9:44 AM EDT BASIC METABOLIC PANEL Lab Routine Hypertensive heart and kidney disease with chronic diastolic congestive heart failure and stage 3b chronic kidney disease (HCC) 10/20/2022 9:44 AM EDT TSH WITH FREE T4 IF INDICATED Lab Routine Acquired hypothyroidism 10/20/2022 9:44 AM EDT ANEMIA CBC Lab Routine Hypertensive heart and kidney disease with chronic diastolic congestive heart failure and stage 3b chronic kidney disease (HCC) 10/20/2022 9:44 AM EDT DIFFERENTIAL, AUTOMATED Lab Routine Hypertensive heart and kidney disease with chronic diastolic congestive heart failure and stage 3b chronic kidney disease (HCC) 10/20/2022 9:44 AM EDT ANEMIA REFLEX CHEMISTRY HOLD Lab Routine Hypertensive heart and kidney disease with chronic diastolic congestive heart failure and stage 3b chronic kidney disease (HCC) 10/20/2022 9:44 AM EDT Scheduled Procedures Name Priority Associated Diagnoses Date/Ti me COLONOSCOPY FLEXIBLE PROXIMAL DIAGNOSTIC Recall History of colon polyps Health Maintenance Due Date Last Done Comments COLONOSCOPY-EVERY 3 YRS AGES 18-100 12/17/2020 12/17/2017, 12/17/2017, 11/09/2014, Additional history exists GFR 01/07/2023 07/08/2022, 05/10, 02/13/2022, Additional history exists Depression Screening 01/12/2023 01/12/2022, 05/19/19 18 Albumin/Creatinine Ratio 02/13/2023 02/13/2022, 10/09 CKD PHOS USE SMARTSET 40367 02/13/202307/2022, 02/11/2021, 03/04/2020, Additional history exists TSH 06/05/2023 06/04/2022, 07/2022, 10/02/2021, Additional history exists CKD HGB USE SMARTSET 61230 07/09/202307/08, 07/08/2022, 02/13/2022, Additional history exists DTaP,Tdap,and Td Vaccines [...] as of this encounter Visit Diagnoses Diagnosis Hypertensive heart and kidney disease with chronic diastolic congestive heart failure and stage 3b chronic kidney disease (HCC) Acquired hypothyroidism Unspecified hypothyroidism documented in this encounter Care Teams Ceramist Relationship Specialty Start Date End Date Anna King MD [address] [place] [address] [place] [phone] PCP - General Family Medicine 07/24/13 documented as of this encounter
--- OUTSIDE RECORDS SUMMARY | 2023-01-02 23:06 | External Medical Summary | Summary of Care ---
Author Name Unknown Organization [facility] Address [address] [facility] [address] Phone [phone] Care Team Providers Care Layaway Clerk Name Role Phone Anna King MD Primary Care Provide r Reason for Visit * Reason Onset Date Comments Sleep Apnea Device 10/30/2022 Pressure adju stment Encounter Details Date Type Department Care Team Description 10/30/2022 Telephone Sleep Disorders Ctr [facility] [address] [place] [phone] Magalys Dexter CRNP [address] [place] [id number] Sleep Apnea Device (Pressure adjustment) Allergies Active Allergy Reactions Severity Noted Date Comments Niacin 09/20/2002 niaspan-flushing Oxycodone-Acetaminophen 08/18/2014 Propoxyphene Napsylate 03/08/2003 rash documented as of this encounter (statuses as of 10/30/2022) Medications Medication Sig Dispensed Refills Start Date [...] before bedtime. 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 for the pressure change. Pt aware via detailed message on a.machine * Telephone Encounter - JHONNY Thurman - 10/30/2022 1:32 PM EDT After seeing Myron today, I decided I would have his pressure adjusted from a 12/7 to 13/7 on BiPAP. [facility] should call to have this adjustment made. Please let him know. documented in this encounter Plan of Treatment Upcoming Encounters Date Type Specialty Care Team Description 12/17/2022 Office Visit Cardiology Wellington Parrish PA-C [address] [place] [address] 01/07/2023 Office Visit Hematology Oncology Garfield Preciado MD 200 [place] [address] 01/11/2023 Office Visit Urology Torrey Abdi MD [address] [place] [address] [place] [address] 01/14/2023 Nurse Only Ancillary [place], Nurse [facility] [place] [address] 01/27/2023 Nurse Only Urology Darrick, Nurse Urology Geoff [address] [place] [address] 03/02/2023 Cardiac Studies Cardiology Candice, [facility] Geoff Hollingsworth [address] [place] [address] 04/20/2023 Office Visit Family Medicine Nicky Desouza PA-C [address] [place] [address] [place] [address] 05/03/2023 Office Visit Family Anna Luis MD [address] [place] [address] [place] [address] 08/10/2023 Cardiac Studies Cardiac Studies 2023 Office Visit Family Medicine Anna King MD [address] [place] [address] [place] [id number] Scheduled Procedures Name Priority Associated Diagnoses Date/Ti me COLONOSCOPY FLEXIBLE PROXIMAL DIAGNOSTIC Recall History of colon polyps Health Maintenance Due Date Last Done Comments COLONOSCOPY-EVERY 3 YRS AGES 18-100 12/17/2020 12/17/2017, 12/17/2017, 11/09/2014, Additional history exists Depression Screening 01/12/2023 01/12/2022, 05/19/19 18 Albumin/Creatinine Ratio 02/13/2023 02/13/2022, 10/09 CKD PHOS USE SMARTSET 83936 02/13/202307/2022, 02/11/2021, 03/04/2020, Additional history exists GFR 04/20/2023 10/20/2022, 06/10, 06/04/2022, Additional history exists CKD HGB USE SMARTSET 02494 10/21/202310/20, 10/20/2022, 07/08/2022, Additional history exists TSH [...] filedocumented as of this encounter Care Teams Layaway Clerk Relationship Specialty Start Date End Date Anna King MD [address] [place] [address] [place] [address] PCP - General Family Medicine 07/24/13 documented as of this encounter
--- OUTSIDE RECORDS SUMMARY | 2023-01-02 23:06 | External Medical Summary | Summary of Care ---
Author Name Unknown Organization [facility] Address [address] [place] [address] Phone [phone] Care Team Providers Care Caddie Name Role Phone Anna King MD Primary Care Provide r Reason for Visit * Reason Onset Date Comments Re-Check Medication Administration 10/20/2022 Flu an d/or Pneumo Inj Encounter Details Date Type Department Care Team Description 10/20/2022 Office Visit Family Medicine [address] [phone] Anna King MD [address] [place], [place] [address] [phone] Hypertensive heart and kidney disease with chronic diastolic congestive heart failure and stage 3b chronic kidney disease (HCC)*; Need for prophylactic vaccination and inoculation against influenza; Interstitial pulmonary disease (HCC); Post-traumatic stress disorder, chronic; Other schizophrenia (HCC); Bronchiectasis without complication (HCC); Chronic respiratory failure with hypoxia and hypercapnia (HCC); Persistent atrial fibrillation (HCC); Chronic diastolic congestive heart failure (HCC); Presence of cardiac pacemaker; Elevated prostate specific antigen (PSA); Acquired hypothyroidism Allergies Active Allergy Reactions Severity [...] chronic 02/27/2020 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 02/27/2020 Pancreas [...] IIA(T1c, N0, M0, PSA: Less than 10, [place] 7) - Signed by Jace Means MD [...] on file documented as of this encounter Last Filed Vital Signs Vital Sign Reading Time Taken Comments Blood Pressure 102/58 10/20/2022 8:56 AM EDT Pulse 110 10/20/2022 8:56 AM EDT Temperature 37.4 C (99.4 F) 10/20/2022 8:56 AM ED T Respiratory Rate - - Oxygen Saturation 93% 10/20/2022 8:56 AM EDT Inhaled Oxygen Concentration - - Weight 99.8 kg (220 lb) 10/20/2022 8:56 AM EDT Height - - Body Mass Index 32.02 07/08/2022 12:01 PM EDT documented in this encounter Progress Notes * Anna King MD - 10/20/2022 9:05 AM EDT Subjective: Cristhian May is a 81 year old male. Chief Complaint Patient presents with Re-Check Medication Administration Flu and/or Pneumo Inj HPI: Brief Clinical History Mr. May is an 81 year old man last seen in Family Medicine 5 months ago (04-27-22). He has h/o Bronchiectasis without complication (HCC), cardio respiratory failure, Chronic diastolic congestive heart failure (HCC), Chronic kidney disease, stage 3b (HCC), chronic lung disease, Chronic respiratory fa ilure with hypoxia and hypercapnia (HCC), CKD stage 3, heart arrhythmia, heart failure, Hypertensive heart and kidney disease with chronic diastolic congestive heart failure and stage 3b chronic kidney disease (HCC), Interstitial pulmonary disease (HCC), Other schizophrenia (HCC), Persistent atrialfibrillation (HCC), schizophrenia, and Tachy-noni syndrome (HCC). Here with his . Was admitted to [facility] 08/19/22 for planned left total hip arthroplasty. He then went to [facility] for rehab and was discharged to home 09/12/22. Has had a fall since returning home but saw Dr. Witt after and had x-rays and everything was OK. Still has home PT coming in. No longer has home nursing. Had to go back to have a retained staple removed in mid September. The hip is doing well. Ambulating with a walker. Has an abrasion on left ontiveros from when he fell. Is slowly healing but would like to have it checked. Is hot all the time. Has been getting sweats at night. Started Lupron April 2022 for elevated PSA. His PSA has come down and CT showed no metastatic disease. Following with Dr. Abdi. Has been wearing oxygen all the time. Has been doing pretty good if he uses his nebulizer and flutter valve. Sees pulmonary soon. Also follows with sleep medicine for RUDY. Follows with cardiology. Has a pacemaker and chronic diastolic CHF. Sees psychiatry this . No recent changes in his medications. CBC Results: Results for orders placed or performed in visit on 07/08/22 CBC Result Value Ref Range WBC 12.46 (H) 4.00 - 10.80 K/uL RBC 4.75 4.50 - 5.25 M/uL HGB 14.8 14.0 - 16.8 g/dL HCT 46.4 40.0 - 48.4 % MCV 97.7 82.0 - 99.5 fL MCH 31.2 27.0 - 34.0 pg MCHC 31.9 32.0 - 36.0 g/dL RDW 15.3 11.5 - 15.5 % PLT 201 140 - 400 K/uL MPV 10.7 6.6 - 11.1 fL Basic Panel Results: Results for orders placed or performed in visit on 06/04/22 BASIC METABOLIC PANEL Result Value Ref Range BUN 30 (H) 6 - 20 mg/dL Creatinine 1.2 0.6 - 1.2 mg/dL Estimated Glomerular Filtration Rate 63 >=60 mL/min Sodium 141 135 - 146 mmol/L Potassium 4.8 3.5 - 5.1 mmol/L Chloride 98 98 - 107 mmol/L CO2 34 (H) 22 - 32 mmol/L Anion Gap 9 7 - 15 mmol/L Glucose 108 70 - 120 mg/dL Calcium 10.0 8.4 - 10.2 mg/dL Lipid Panel Results: Results for orders placed or performed in visit on 06/04/22 LIPID PANEL WITH DIRECT LDL IF TG IS HIGH Result Value Ref Range Triglycerides 110 <=174 mg/dL Cholesterol 146 <200 mg/dL HDL Cholesterol 44 >39 mg/dL Non-HDL Cholesterol 102 <=159 mg/dL LDL Cholesterol 80 <=129 mg/dL ALT Results: Lab Results Component Value Date/Time ALT - [facility] 24 07/08/2022 01:10 PM ALT - [facility] 41 06/04/2022 07:52 AM ALT - [facility] 29 05/06/2021 03:14 PM ALT - [facility] 32 10/26/2019 10:36 AM ALT - [facility] 29 06/01/2018 10:50 AM ALT - [facility] 21 12/08/2017 09:14 AM ALTERNARIA IGE - [facility] <0.10 05/26/2016 10:42 AM Results for orders placed or performed in visit on 09/16/22 PSA Result Value Ref Range PSA 1.75 <4.10 ng/mL *Note: Due to a large number of results and/or encounters for the requested time period, some results have not been displayed. A complete set of results can be found in Results Review. PHM: Patient Active Problem List Diagnosis Code Hip joint replacement status Z96.649 ARTHROPATHY NOS-PELVIS M16.10 BPH without obstruction/lower urinary tract symptoms N40.0 ADVANCE DIRECTIVE INFORMATION HTN, GOAL BELOW 140/90 I10 Gout M10.9 Dyslipidemia, goal LDL below 100 E78.5 Hx of actinic keratosis Z87.2 Acquired hypothyroidism E03.9 Restrictive lung disease J98.4 Persistent atrial fibrillation (HCC) I48.19 Tachy-noni syndrome (HCC) I49.5 Presence of cardiac pacemaker Z95.0 Bronchiectasis without complication (HCC) J47.9 Severe episode of recurrent major depressive disorder, with psychotic features (HCC) F33.3 Chronic frontal sinusitis J32.1 RUDY on CPAP G47.33, Z99.89 History of colon polyps Z86.010 History of prostate cancer Z85.46 TIBURCIO (generalized anxiety disorder) F41.1 Undescended left testicle Q53.10 Pancreas cyst K86.2 Asthma, mild persistent J45.30 Post-traumatic stress disorder, chronic F43.12 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 I25.10 Chronic kidney disease, stage 3b (HCC) N18.32 Other schizophrenia (HCC) F20.89 Hypertensive heart and kidney disease with chronic diastolic congestive heart failure and stage 3b chronic kidney disease (HCC) I13.0, I50.32, N18.32 Chronic respiratory failure with hypoxia and hypercapnia ([facility]) J96.11, J96.12 Calcium pyrophosphate deposition disease (CPPD) M11.20 Chronic diastolic congestive heart failure ([facility]) I50.32 Chronic bilateral low back pain with left-sided sciatica M54.42, G89.29 Interstitial pulmonary disease ([facility]) J84.9 Elevated prostate specific antigen (PSA) R97.20 Current Outpatient Medications Medication Sig Dispense Refill ASPIRIN 81 MG PO CHEW One pill by mouth once a day with food 100 5 MULTIVITAMIN/IRON PO TABS 0 GLUCOSAMINE 1500 COMPLEX PO CAPS Take 1 Capsule by mouth in the morning. 0 RESTASIS 0.05 % OP EMUL One drop in affected eye(s) every day CALCIUM 600+D 600-400 MG-UNIT PO TABS 1 tab daily by mouth guaiFENesin ER 600 MG Oral Tablet Extended Release 12 Hour Take 1 Tablet by mouth 2 times a day as needed for Cough or Congestion. Lutein 20 MG Oral Capsule Take 1 Capsule by mouth in the morning. oxygen IN GAS 2 LPM via nasal cannula to maintain sats 90-94% and 3 LPM through CPAP during hours of sleep 1 Each 0 Magnesium 400 MG Oral Capsule Take 1 Capsule by mouth daily at noon. 31 Capsule 5 Escitalopram Oxalate 20 MG Oral Tablet (Lexapro) Take 1 Tablet by mouth in the morning. 31 Tablet 5 OLANZapine 5 MG Oral Tablet (zyPREXA) Take 1 Tablet by mouth at bedtime. 30 Tablet 0 Atorvastatin Calcium 20 MG Oral Tablet (Lipitor) Take by mouth 1 Tablet before bedtime. 90 Tablet 3 Spironolactone 25 MG Oral Tablet (Aldactone) TAKE BY MOUTH 0.5 TABLETS IN THE MORNING. 45 Tablet 5 Tamsulosin HCl 0.4 MG Oral Capsule (Flomax) Take by mouth 1 Capsule in the morning. 90 Capsule 3 Albuterol Sulfate 0.63 MG/3ML Inhalation Nebulization Solution (Accuneb) Inhale 1 Vial (0.63 mg) via nebulizer in the morning and 1 Vial (0.63 mg) before bedtime. Take am and mid day.. 180 mL 5 Mirtazapine 30 MG Oral Tablet Take 1 Tablet by mouth at bedtime. 1.5 tabs at bedtime 30 Tablet 0 Albuterol Sulfate HFA 108 (90 Base) MCG/ACT Inhalation Aerosol Solution INHALE 2 PUFFS THREE TIMES DAILY 18 g 2 Fluticasone-Salmeterol 250-50 MCG/ACT Inhalation Aerosol Powder Breath Activated (Wixela Inhub) TAKE 1 PUFF BY MOUTH TWICE A DAY 180 Each 1 Apixaban 2.5 MG Oral Tablet (Eliquis) Take 1 Tablet by mouth in the morning and 1 Tablet before bedtime. 180 Tablet 1 rOPINIRole HCl 1 MG Oral Tablet Take 1 Tablet by mouth at bedtime. With food. For restless legs 90 Tablet 1 Torsemide 20 MG Oral Tablet (Demadex) TAKE BY MOUTH 2 TABLETS IN THE MORNING. 180 Tablet 3 Potassium Chloride ER 10 MEQ Oral Tablet Extended Release TAKE 1 TABLET BY MOUTH EVERY DAY IN THE MORNING 90 Tablet 1 Leuprolide Acetate (3 Month) 22.5 MG Intramuscular Kit (Lupron) Inject 22.5 mg into a large muscle.Every 3 months, given by Urology, depending on his PSA. Metoprolol Tartrate 25 MG Oral Tablet (Lopressor) Take 1 Tablet by mouth in the morning and 1 Tablet before bedtime. 90 Tablet 1 dilTIAZem HCl ER 180 MG Oral Capsule Extended Release 24 Hour TAKE 1 CAPSULE BY MOUTH EVERY DAY IN THE MORNING 90 Capsule 3 Levothyroxine Sodium 75 MCG Oral Tablet (Levoxyl) TAKE 1 TABLET BY MOUTH EVERY DAY (AT LEAST 30 MINUTES PRIOR TO BREAKFAST OR OTHER MEDICATIONS) 90 Tablet 2 No current facility-administered medications for this visit. Past Medical History: Diagnosis Date Asthma, severity to be determined BENIGN NEOPLASM LG BOWEL 10/17/2001 hx of multiple hyperplastic polyps [4] removed 3 BPH without obstruction/lower urinary tract symptoms Depressive disorder, not elsewhere classified Generalized osteoarthritis HTN, goal below 140/90 Mixed dyslipidemia Persistent atrial fibrillation (HCC) 05/26/2016 Prostate cancer (HCC) [place] score 7 Restrictive lung disease 01/2016 moderate RHF (right heart failure) (HCC) 06/12/2016 Past Surgical History: Procedure Laterality Date COLONOSCOPY 2007 Dr. Machado--umremarkable COLONOSCOPY 2000 Jeannette--polyps COLONOSCOPY, DIAGNOSTIC (RECTUM) 11/09/2014 hyperplastic polyps, suboptimal prep, repeat 3 yrs/COLONOSCOPY FLEXIBLE PROXIMAL DIAGNOSTIC performed by Digna Ridley DO at [facility] COLONOSCOPY, DIAGNOSTIC (RECTUM) 12/17/2017 hyperplastic polyp, repeat 3 yrs/COLONOSCOPY FLEXIBLE PROXIMAL DIAGNOSTIC performed by Digna Ridley DO at [facility] CYSTOSCOPY 09/03/2014 EGD, W/ENDOSCOPIC US 08/07/2019 pseudocysts, repeat 3 mo / ESOPHAGOGASTRODUODENOSCOPY (EGD), FLEXIBLE, TRANSORAL, ENDOSCOPIC ULTRASOUND performed by Kiran Lucia MD at [facility] EGD, W/ENDOSCOPIC US 01/15/2020 pancreatic mucinous cyst / ESOPHAGOGASTRODUODENOSCOPY (EGD), FLEXIBLE, TRANSORAL, ENDOSCOPIC ULTRASOUND performed by Kiran Lucia MD at [facility] INFORMATION 1971 vasectomy down in [facility] INTERSTITIAL [facility], [facility] COMPLEX performed by Chu Palomares MD at [facility] PROCTOSIGMOIDOSCOPY/REMOVE LESION benign REMOVAL OF ANORECTAL LESION REMOVAL OF TONSILS, AGE 12+ TOTAL HIP REPLACEMENT & PROSTHESIS 2002 right TOTAL HIP REPLACEMENT & PROSTHESIS Left 08/19/[address] Dr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 Tobacco Use Smoking status: Former Packs/day: 1.50 Years: 24.00 Pack years: 36.00 Types: Cigarettes Quit date: 02/08/1978 Years since quittin.7 Smokeless tobacco: Former Types: Snuff, Chew Quit date: 1969 Vaping Use Vaping Use: Never used Substance and Sexual Activity Alcohol use: Not Currently Drug use: No Sexual activity: Not Currently Other Topics Concern Service Not Asked Blood Transfusions Not Asked Caffeine Concern Not Asked Occupational Exposure Not Asked Hobby Hazards Not Asked Sleep Concern Not Asked Stress Concern Not Asked Weight Concern Not Asked Special Diet Not Asked Back Care Not Asked Exercise Not Asked Bike Helmet Not Asked Seat Belt Yes Self-Exams Not Asked Social History Narrative for 60yrs Social Determinants of Health Financial Resource Strain: Not on file Food Insecurity: No Food Insecurity Worried About Running Out of Food in the Last Year: Never true Ran Out of Food in the Last Year: Never true Transportation Needs: Not on file Physical Activity: Not on file Stress: Not on file Social Connections: Not on file Intimate Partner Violence: Not on file Housing Stability: Not on file Review of patient's allergies indicates: Allergen Reactions Niacin niaspan-flushing Oxycodone-Acetaminophen Propoxyphene Napsylate rash Objective: BP 102/58 | Pulse 110 | Temp 37.4 C (99.4 F) (Tympanic) | Wt 99.8 kg (220 lb) | SpO2 93% | BMI32.02 kg/m | BSA 2.21 m Physical Exam: General: alert, healthy, no distress, well nourished, and well developed Head: Normocephalic, No masses, lesions, tenderness or abnormalities Eye Exam: PERRLA, extraocular movements intact, conjunctiva are pink and non- injected, sclera clear Ears: External ears normal, Canals clear, TM's Normal Nose: no mucosal erythema, no mucosal edema, no purulent discharge Oropharynx: no exudate, no erythema, lips, buccal mucosa, and tongue normal, and mucous membranes are moist Neck: supple, no adenopathy, no bruits Heart: regular rate & rhythm, no murmur, and no gallops Lungs: chest symmetric with normal AP diameter, no chest deformities noted, no chest wall tenderness, coarse sounds heard Extremities: no clubbing, no cyanosis, 1+ edema bilateral lower extremities with scabbed area of mid left ontiveros Neuro Exam: alert & oriented x 3 with fluent speech, no focal motor/sensory deficits, gait normal Extensive ROS Constitutional (f/c/wt/vision/hearing): Negative Resp (cough/sob/andrews): see above hpi CV (cp/palp/fluttering/diaphoresis/andrews/pnd):see above hpi GI (n/v/d/hrtburn): Negative Endo (hair/cold or heat intol/ 3 p's): Negative Neuro (shaking/weak/fatigu/parasthesi/): Negative Skin (rash/easy bruis/xerosis): see above hpi Psy (si/hi/halluc/): see above hpi (nocturia/hesit/drib/sexual review): see above hpi Lymph (swollen glands/b sx's/: Negative ASSESSMENT: Hypertensive heart and kidney disease with chronic diastolic congestive heart failure and stage 3b chronic kidney disease (HCC) (Primary)--blood pressure controlled and on the low side today. Has some leg edema but not overly volume overloaded. Continue metoprolol tartrate 25 mg twice daily, diltiazem 180 mg daily, torsemide 20 mg daily, and Spironolactone 12.5 mg daily - CBC WITH WBC DIFFERENTIAL AND ANEMIA REFLEX WORKUP; Future; Expected date: 10/20/2022 - BASIC METABOLIC PANEL; Future; Expected date: 10/20/2022 Need for prophylactic vaccination and inoculation against influenza - INFLUENZA VACC, QUAD, HIGH DOSE (FLUZONE HD) Interstitial pulmonary disease (HCC)--stable. Wearing oxygen continuously. Follows with pulmonary. Is on Wixela and albuterol. Post-traumatic stress disorder, chronic--following with psychiatry. Other schizophrenia (HCC)--following with psychiatry. Moods have been stable on Zyprexa and Lexapro. Bronchiectasis without complication (HCC)--as above Chronic respiratory failure with hypoxia and hypercapnia (HCC)--continue oxygen Persistent atrial fibrillation (HCC)--rate controlled. Has pacemaker. Anticoagulated with Eliquis. Chronic diastolic congestive heart failure (HCC)--continue torsemide and Spironolactone as above. Presence of cardiac pacemaker Elevated prostate specific antigen (PSA)--following with urology. On Lupron injections and PSA trending down. No evidence of spread on CT scans. Discussed that the Lupron can cause hot flashes. Acquired hypothyroidism - TSH WITH FREE T4 IF INDICATED; Future; Expected date: 10/20/2022 Follow Up: Return in about 6 months (around 04/20/2023) for Clinic Visit. | For: Clinic Visit | Check-out note: Cancel 10/28/22 with Eliana PLAN: Continue present medication(s): Schedule labs: CBC, BMP, and TSH Immunizations: Influenza vaccine given today Patient education: Discussed new COVID booster. Continue to keep scabbed area clean. Does not appear infected. Monitor and call with any changes. Follow up: in 6 month(s). Anna King MD documented in this encounter Nursing Notes * Monisha Feliz LPN - 10/20/2022 8:58 AM EDT Follow up Hot flashes, a lot of sweating through the night documented in this encounter Plan of Treatment Upcoming Encounters Date Type Specialty Care Team Description 10/27/2022 Nurse Only Urology Darrick, Nurse Urology Geoff [address] [place] [id number] 10/28/2022 Office Visit Family Medicine Eliana Cason PA-Tracie [address] [place] [address] [place] [id number] 10/30/2022 Office Visit Sleep Disorders Magalys Dexter CRNP [address] [place] [id number] 12/17/2022 Office Visit Cardiology Wellington Parrish PAQuique [address] [place] [phone] 01/07/2023 Office Visit Hematology Oncology Garfield Preciado MD [address] [facility] [place] [phone] 01/11/2023 Office Visit Urology Torrey Abdi MD [address] [facility] [address] [place] [id number] 01/14/2023 Nurse Only Ancillary Candice, Nurse [facility] [address] [place] [address] [place] [id number] 03/02/2023 Cardiac Studies Cardiology [facility] [address] [place] [phone] 04/20/2023 Office Visit Family Medicine Nicky Desouza PA-C [address] [place] [address] [place] [id number] 05/03/2023 Office Visit Family Anna Luis MD [address] [place] [address] [place] [id number] 08/10/2023 Cardiac Studies Cardiac Studies 2023 Office Visit Family Anna Luis MD [address] [place] [address] [place] [phone] Pending Results Name Type Priority Associated Diagnoses [...] Routine Acquired hypothyroidism 10/20/2022 9:44 AM EDT Scheduled Orders Name Type Priority Associated Diagnoses Orde r Schedule CBC WITH WBC DIFFERENTIAL AND ANEMIA REFLEX WORKUP Lab Routine Hypertensive heart and kidney disease with chronic diastolic congestive heart failure and stage 3b chronic kidney disease (HCC) Expected: 10/20/2022 (Approximate), Expires: 10/21/2023 BASIC METABOLIC PANEL Lab Routine Hypertensive heart and kidney disease with chronic diastolic congestive heart failure and stage 3b chronic kidney disease (HCC) Expected: 10/20/2022 (Approximate), Expires: 10/20/2023 TSH WITH FREE T4 IF INDICATED Lab Routine Acquired hypothyroidism Expected: 10/20/2022 (Approximate), Expires: 10/20/2023 Scheduled Procedures Name Priority Associated Diagnoses Date/Ti me COLONOSCOPY FLEXIBLE PROXIMAL DIAGNOSTIC Recall History of colon polyps Health Maintenance Due Date Last Done Comments COLONOSCOPY-EVERY 3 YRS AGES 18-100 12/17/2020 12/17/2017, 12/17/2017, 11/09/2014, Additional history exists GFR 01/07/2023 07/08/2022, 05/10, 02/13/2022, Additional history exists Depression Screening 01/12/2023 01/12/2022, 05/19/19 18 Albumin/Creatinine Ratio 02/13/2023 02/13/2022, 10/09 CKD PHOS USE SMARTSET [id number] 02/13/202307/2022, 02/11/2021, 03/04/2020, Additional history exists TSH 06/05/2023 06/04/2022, 07/2022, 10/02/2021, Additional history exists CKD HGB USE SMARTSET [id number] 07/09/202307/08, 07/08/2022, 02/13/2022, Additional history exists DTaP,Tdap,and [...] failure and stage 3b chronic kidney disease (HCC)- Primary Need for prophylactic vaccination and inoculation against influenza Interstitial pulmonary disease (HCC) Postinflammatory pulmonary fibrosis Post-traumatic stress disorder, chronic Other schizophrenia (HCC) Bronchiectasis without complication (HCC) Bronchiectasis without acute exacerbation Chronic respiratory failure with hypoxia and hypercapnia (HCC) Persistent atrial fibrillation (HCC) Atrial fibrillation Chronic diastolic congestive heart failure (HCC) Chronic diastolic heart failure Presence of cardiac pacemaker Cardiac pacemaker in situ Elevated prostate specific antigen (PSA) Acquired hypothyroidism Unspecified hypothyroidism documented in this encounter Care Teams Caddie Relationship Specialty Start Date End Date Anna King MD [address] [place] [address] [place] [id number] PCP - General Family Medicine 07/24/13 documented as of this encounter"
--- OUTSIDE RECORDS SUMMARY | 2023-01-02 23:06 | External Medical Summary | Summary of Care ---
Author Name Unknown Organization [facility] Address [address] [place] [address] Phone [phone] Care Team Providers Care Rn Disease Management Name Role Phone Anna King MD Primary Care Provide r Reason for Visit * Reason Comments Follow Up Sleep Apnea COPD RLDBronchiectasisChr onic Resp. Failure with Hypoxia and HypercapniaInterstitial Pulm. Disease Asthma Encounter Details Date Type Department Care Team Description 10/30/2022 [facility] [address] [place] [phone] Magalys Dexter CRNP [address] [place] [id number] Chronic respiratory failure with hypoxia and hypercapnia (HCC)*; Bronchiectasis without complication (HCC); Restrictive lung disease; Acquired elevated diaphragm; Pulmonary hypertension (HCC); RUDY (obstructive sleep apnea); Chronic diastolic congestive heart failure (HCC); Lung nodule Allergies Active Allergy Reactions Severity Noted Date [...] IIA(T1c, N0, M0, PSA: Less than 10, Driver 7) - Signed by Jace Means MD [...] Smokeless Tobacco: Former Snuff, Chew Quit: 1970 Tobacco Cessation:Counseling Given: Not Answered Alcohol Use Standard Drinks/Week Comments Not Currently [...] Sign Reading Time Taken Comments Blood Pressure 110/68 10/30/2022 10:58 AM EDT Pulse 74 10/30/2022 10:58 AM EDT Temperature 36.9 C (98.5 F) 10/30/2022 10:58 AM E DT Respiratory Rate 16 10/30/2022 10:58 AM EDT Oxygen Saturation 97% 10/30/2022 10:58 AM EDT Inhaled Oxygen Concentration - - Weight 95.7 kg (211 lb) 10/30/2022 10:58 AM EDT Height 176.5 cm (5' 9.5") 10/30/2022 10:58 AM ED T Body Mass Index 30.71 10/30/2022 10:58 AM EDT documented in this encounter Progress Notes * JHONNY Thurman - 10/30/2022 11:08 AM EDT [facility] Cristhian May is a 82 year old male with medical history significant for permanent, tachy-noni syndrome, hypertension, CHF, CKD, pulmonary hypertension, schizophrenia, history of acute right heart failure, bronchiectasis, 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 Last clinic visit 06/05/2022 at which time stepping up medical management of bronchiectasis was again encouraged. Pulmonary Symptoms: Reports 0 ER visits/hospitalization and 0 courses of prednisone related to their breathing in the past year. He feels his chest symptoms have been stable in the last 6 months but oxygen levels dropped <90%at rest consistently around 3-4 months ago requiring 24/7 oxygen. Using 2 LPM on portal device (continuous) and 2.5 LPM on home concentrator. "We forget to turn it down during the day and up at night" as he is prescribed 3 LPM through BIPAP and 2 LPM during the day. Awake sats ranging 92-95% with oxygen. Cough: to clear mucous, some when he lays down, not waking him Sputum Production: easy to expectorate Hemoptysis: denies Dyspnea: walking room to room Chest tightness or wheezing: intermittent wheezing mostly at night Environmental allergies: doesn't suspect but notes occasions of "sneezing fits", not happening often, previous trial with flonase wasn't helpful Continues to dose torsemide as needed. Pulmonary Medications: Mucinex twice a day Flutter used daily, 1-2x/day Albuterol neb - mostly used in the morning, often has to encourage this to be done and remindshim of the recommendation for twice daily usage Wixella 250-50 BID Sleep Symptoms & Treatment: BPAP used nightly with better tolerance and longer use. No longer with rain out. Less extreme dry mouth. May sip water during the night. Napping in recliner every afternoon for an hour and in the evening up to 2 hours. Oxygen only worn. Compliance Data: Report date: 30 days ending 10/05/2022 % total days used: 100 % days used > 4 hours: 93 Average hours per day used: 6 hours 47 mins Large leak: 9 L/min AHI: 6.3 (2.6 H, 3.7 AI - 0.2 JUNIOR) Equipment: DME Provider: 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 congestive heart failure and stage 3b chronic kidney disease (HCC) I13.0, I50.32, N18.32 Chronic respiratory failure with hypoxia and hypercapnia ([facility]) J96.11, J96.12 Calcium pyrophosphate deposition disease (CPPD) M11.20 Chronic diastolic congestive heart failure (HCC) I50.32 Chronic bilateral low back pain with left-sided sciatica M54.42, G89.29 Interstitial pulmonary disease (HCC) J84.9 Elevated prostate specific antigen (PSA) R97.20 Medications: Outpatient Medications Marked as Taking for the 10/30/22 encounter (Office Visit) with JHONNY Roberts Medication Sig dilTIAZem HCl ER 180 MG Oral Capsule Extended Release 24 Hour TAKE 1 CAPSULE BY MOUTH EVERY DAY IN THE MORNING Levothyroxine Sodium 75 MCG Oral Tablet (Levoxyl) TAKE 1 TABLET BY MOUTH EVERY DAY (AT LEAST 30 MINUTES PRIOR TO BREAKFAST OR OTHER MEDICATIONS) Metoprolol Tartrate 25 MG Oral Tablet (Lopressor) Take 1 Tablet by mouth in the morning and 1 Tablet before bedtime. Leuprolide Acetate (3 Month) 22.5 MG Intramuscular Kit (Lupron) Inject 22.5 mg into a large muscle.Every 3 months, given by Urology, depending on his PSA. Potassium Chloride ER 10 MEQ Oral Tablet Extended Release TAKE 1 TABLET BY MOUTH EVERY DAY IN THE MORNING Torsemide 20 MG Oral Tablet (Demadex) TAKE BY MOUTH 2 TABLETS IN THE MORNING. rOPINIRole HCl 1 MG Oral Tablet Take 1 Tablet by mouth at bedtime. With food. For restless legs Apixaban 2.5 MG Oral Tablet (Eliquis) Take 1 Tablet by mouth in the morning and 1 Tablet before bedtime. Fluticasone-Salmeterol 250-50 MCG/ACT Inhalation Aerosol Powder Breath Activated (Wixela Inhub) TAKE 1 PUFF BY MOUTH TWICE A DAY Albuterol Sulfate HFA 108 (90 Base) MCG/ACT Inhalation Aerosol Solution INHALE 2 PUFFS THREE TIMES DAILY Mirtazapine 30 MG Oral Tablet Take 1 Tablet by mouth at bedtime. 1.5 tabs at bedtime Albuterol Sulfate 0.63 MG/3ML Inhalation Nebulization Solution (Accuneb) Inhale 1 Vial (0.63 mg) via nebulizer in the morning and 1 Vial (0.63 mg) before bedtime. Take am and mid day.. Tamsulosin HCl 0.4 MG Oral Capsule (Flomax) Take by mouth 1 Capsule in the morning. Spironolactone 25 MG Oral Tablet (Aldactone) TAKE BY MOUTH 0.5 TABLETS IN THE MORNING. Atorvastatin Calcium 20 MG Oral Tablet (Lipitor) Take by mouth 1 Tablet before bedtime. OLANZapine 5 MG Oral Tablet (zyPREXA) Take 1 Tablet by mouth at bedtime. Escitalopram Oxalate 20 MG Oral Tablet (Lexapro) Take 1 Tablet by mouth in the morning. Magnesium 400 MG Oral Capsule Take 1 Capsule by mouth daily at noon. oxygen IN GAS 2 LPM via nasal cannula to maintain sats 90-94% and 3 LPM through CPAP during hours of sleep Lutein 20 MG Oral Capsule Take 1 Capsule by mouth in the morning. guaiFENesin ER 600 MG Oral Tablet Extended Release 12 Hour Take 1 Tablet by mouth 2 times a day as needed for Cough or Congestion. CALCIUM 600+D 600-400 MG-UNIT PO TABS 1 tab daily by mouth RESTASIS 0.05 % OP EMUL One drop in affected eye(s) every day GLUCOSAMINE 1500 COMPLEX PO CAPS Take 1 Capsule by mouth in the morning. MULTIVITAMIN/IRON PO TABS ASPIRIN 81 MG PO CHEW One pill by mouth once a day with food Social/occupational/living/family history: Social/occupational/living/family history: Home environment: Lives with in single family home built 1969- resident since that time, forced air heat, denies pets, throw carpets, hardwood papo, unfinished basement with sump pump and dehumidifier, denies renovations, no known mold issues Exercise: unable Alcohol: denies Nicotine: denies Illicit Drugs: denies Family hx: denies Surgical hx: hip replacement surgery August 19, 2022 Medical hx: continues Lupron injections, denies changes Medication changes: denies changes Review of Systems Constitutional: Negative for appetite change. HENT: Positive for postnasal drip. Negative for congestion and trouble swallowing. Respiratory: See above Cardiovascular: Positive for leg swelling (intermittent). Negative for chest pain. Gastrointestinal: No LUIS EDUARDO symptoms Musculoskeletal: Negative for arthralgias and back pain. Neurological: Negative for headaches. Psychiatric/Behavioral: Positive for sleep disturbance (wishing he didn't wake during the night). Diagnostics: Nocturnal oximetry: Performed on 05/27/2022 BIPAP 12/7 cm H2O with 3 LPM SpO2 maria c 83% with 28 seconds <89%, test time 2:23 hrs, rAHI 1.4, no large leak, weight 210 lbs Labs: Component Latest Ref Rng 02/13/2022 06/04/2022 07/08/2022 10/20/2022 CO2 22 - 32 mmol/L 35 (H) 34 (H) 33 (H) 35 (H) ABG on RA 02/19/2021: 7.434 / 46.4 / 58.3 / 30.4 - 90% BPAP initiated Pulmonary Function Test Results: Performed on 07/2021 FVC - 1.92L, 50% FEV1 - 1.41L, 49% FEV1/FVC - 74% RV - 3.17L, 120% TLC - 4.73L, 67% RV/TLC - 172% DLCO - 88% Performed on 01/2016 FVC - 1.88L, 43% FEV1 - 1.48L, 47% FEV1/FVC - 79% RV - 2.66L, 103% TLC - 4.69L, 65% RV/TLC - 153% DLCO - 26.06, 82% Pulmonary Walk Test: 3 MWT 08/07/2021: RA - ambulated 94 meters, 1 rest period (16 secs), SpO2 maria c 86% 2 LPM - ambulated 106 meters, 2 rest periods (27 secs), SpO2 maria c 92% 6 MWT 07/19/2017: RA resting 92%, low 89%, magdi 3-4, ambulated 274 meters, no rest periods Chest CT scan: Performed on 07/24/2022 COMPARISON: CT CHEST WO(Adult) 08/21/2020 4:38 PM FINDINGS: Tubes, catheters and devices: Pacemaker is present via a right subclavian approach. Lungs: Mild basilar airspace disease bilaterally. Bronchial wall thickening with mild bronchiectasis most conspicuous within the left lung base. Atelectasis and/or infiltrates. Pleural spaces: Unremarkable. No pneumothorax. No pleural effusion. Heart: Small amount of fluid within the superior pericardial recess. Coronary arteries: Coronary calcifications Mediastinal space: The thoracic inlet is unremarkable. Lymph nodes: Unremarkable. No enlarged lymph nodes. Vasculature: Calcification of the aorta. Liver: Fatty infiltration of the liver. Bones/joints: Degenerative changes are present within the spine.No visualized osteoblastic metastases. Soft tissues: Unremarkable. Other findings: No dissection. Limited regarding embolus; Tiny nodular density of approximately 2 mm abutting the minor fissure. See image number 127 series 14. IMPRESSION: 1. No dissection. 2. Mild basilar airspace disease bilaterally. Bronchial wall thickening with mild bronchiectasis most conspicuous within the left lung base. Atelectasis and/or infiltrates. Eventration of the right hemidiaphragm. 3. Degenerative changes are present within the spine. No visualized osteoblastic metastases. 4. Tiny nodular density of approximately 2 mm abutting the minor fissure. Echocardiogram: Performed on 08/06/2022 The qualitative LV ejection fraction is 60-64% (normal). The LV wall thickness is mildly increased (concentric). The left atrium is moderately enlarged (42-48 ml/m^2). The aortic valve is mildly calcified. Mild aortic valve stenosis is present. Mild tricuspid regurgitation is present. The right ventricular systolic function is normal There is no evidence of pulmonary hypertension. Compared to last available study changes are noted as follows: Mild aortic valve stenosis now present. Carson Sleepiness Scale Question 10/30/2022 11:03 AM EDT - Filed by Jessica Brink LPN What is the chance you will doze off in the following situation? Sitting and reading Slight chance of dozing Watching TV High chance of dozing Sitting inactive in a public place, such as a theater or meeting No chance of dozing As a passenger in a car for an hour without a break Slight chance of dozing Lying down to rest in the afternoon when circumstances permit High chance of dozing When sitting and talking to someone No chance of dozing When sitting quietly after lunch without alcohol High chance of dozing In a car, while stopped for a few minutes in traffic No chance of dozing Score (range: 0 - 24) 11 Mmrc Cat Question 10/30/2022 11:06 AM EDT - Filed by Jessica Brink LPN When do you become breathless? (3) I stop for breath after walking about 100 yards or after a few minutes on level ground How frequently do you cough? (4) Do you have phlegm in your chest? (4) Is your chest tight? (2) How breathless do you become when walking up a hill or steps? (4) How limited are you doing activities at home? (4) How confident are you leaving home with your lung condition? (3) How soundly do you sleep? (3) How much energy do you have? (3) Total MMRC Score (range: 0 - 4) 3 Total CAT Score (range: 0 - 40) 27 BP 110/68 | Pulse 74 | Temp 36.9 C (98.5 F) (Tympanic) | Resp 16 | Ht 1.765 m (5' 9.5") | Wt 95.7 kg (211 lb) | SpO2 97% | BMI 30.71 kg/m | BSA 2.17 m on 2 LPM continuous flow Physical Exam Vitals and nursing note reviewed. Constitutional: General: He is not in acute distress. Appearance: He is not diaphoretic. Comments: Accompanied by Cardiovascular: Rate and Rhythm: Normal rate and regular rhythm. Pulmonary: Effort: Pulmonary effort is normal. No respiratory distress. Breath sounds: No stridor. Rhonchi (bibasilar and mid jensen) present. Comments: Absent left lower field Skin: General: Skin is warm and dry. Neurological: Mental Status: He is alert and oriented to person, place, and time. Assessment and Plan: Chronic respiratory failure with hypoxia and hypercapnia (HCC) (Primary) Continue to maintain awake sats 89-94%, not over oxygenating Prescribed oxygen through BPAP is 3 LPM Adjust BPAP pressure support to 6 - IPAP 13 / EPAP 7 Replacement nasal cannulas requested (for portable oxygen and stationary unit) Bronchiectasis without complication (HCC) With bibasilar consolidation on CT 08/2022 and rhonchi on exam The importance of pulmonary clearance was again reiterated. At minimum, he should be using nebulizer followed by flutter twice a day increasing flutter to every hour as needed. Trial sodium chloride 3% in nebulizer twice daily. Warned of bronchospasm potential. If any worsened symptoms occur albuterol should be used and sodium chloride stopped. If this is tolerated well, step up to 7%. Continue Mucinex twice daily. Resume incentive spirometer 2-4x/day. Discussed stepping up to a pneumatic vest. His asked that we hold off on this to see if improve compliance with pulmonary clearance is achievable. Risks of developing pneumonia discussed. Restrictive lung disease With hypoventilation and hypercapnia. Last FVC 50% Acquired elevated diaphragm Consider SNIFF testing Pulmonary hypertension (HCC) No evidence on recent ECHO Continue maximizing therapies RUDY (obstructive sleep apnea) Compliant, therapeutic and benefiting with PAP treatment. rAHI 6 Changing pressure support as listed above may lessen hypopneas. Continue to monitor Chronic diastolic congestive heart failure (HCC) Continue medical management per cardiology. Lung nodule Discussed [address] on [address] 08/2022. Discussed option of follow-up imaging in 12 months. He was interested but asked to defer for now as Urology may be ordering imaging. Plan to discuss again infollow-up. Other orders - Sodium Chloride 3 % Inhalation Nebulization Solution; Inhale 3 mL via nebulizer in the morning and 3 mL before bedtime. Follow Up: Return in about 6 months (around 04/30/2023) for pulm/sleep return J[facility]ON[facility] I spent a total of Greater than 55 mins (exact time 70 mins) on the date of service in preparation,delivery, and documentation of the care provided to Cristhian May excluding any time spent in the performance of separately billed services. documented in this encounter Nursing Notes * Jessica Brink LPN - 10/30/2022 11:08 AM EDT Chief Complaint Patient presents with Follow Up Sleep Apnea COPD RLD Bronchiectasis Chronic Resp. Failure with Hypoxia and Hypercapnia Interstitial Pulm. Disease Asthma Interm History/Respiratory Symptoms Cough: clear to chacon Hemoptysis: no Sinus Symptoms: PND Hospitalizations: no ED Trips: no Triggers: no Nocturnal: cough,wheeze,SOB CPAP/BiPAP/O2: Bipap with O2 @ 2.5 lpm Flu Vaccine: 10/20/22 Pneumovax: 06/13/08 Prevnar: 04/17/14 COVID 19: 03/20/20,04/17/20,12/01/20,12/10/20,12/19/21 Carson Sleepiness Scale Question 10/30/2022 11:03 AM EDT - Filed by Jessica Brink LPN What is the chance you will doze off in the following situation? Sitting and reading Slight chance of dozing Watching TV High chance of dozing Sitting inactive in a public place, such as a theater or meeting No chance of dozing As a passenger in a car for an hour without a break Slight chance of dozing Lying down to rest in the afternoon when circumstances permit High chance of dozing When sitting and talking to someone No chance of dozing When sitting quietly after lunch without alcohol High chance of dozing In a car, while stopped for a few minutes in traffic No chance of dozing Score (range: 0 - 24) 11 Mmrc Cat Question 10/30/2022 11:06 AM EDT - Filed by Jessica Brink LPN When do you become breathless? (3) I stop for breath after walking about 100 yards or after a few minutes on level ground How frequently do you cough? (4) Do you have phlegm in your chest? (4) Is your chest tight? (2) How breathless do you become when walking up a hill or steps? (4) How limited are you doing activities at home? (4) How confident are you leaving home with your lung condition? (3) How soundly do you sleep? (3) How much energy do you have? (3) Total MMRC Score (range: 0 - 4) 3 Total CAT Score (range: 0 - 40) 27 Asthma Control Test Question 10/30/2022 11:08 AM EDT - Filed by Jessica Brink LPN Please select the best response to the five questions below, by clicking the appropriate option button. In the past 4 weeks, how much of the time did your asthma keep you from getting as much done at work, school or at home? (3) Some of the time During the past 4 weeks, how often have you had shortness of breath? (3) 3 to 6 times a week During the past 4 weeks, how often did your asthma symptoms (wheezing, coughing, shortness of breath, chest tightness or pain) wake you up at night or earlier than usual in the morning? (1) 4 or morenights a week During the past 4 weeks, how often have you used your rescue inhaler or nebulizer medication (such as albuterol)? (2) 1 or 2 times per day How would you rate your asthma control during the past 4 weeks? (4) Well controlled Total ACT Adult Score (range: 5 - 25) 13 (Moderately Controlled) Total ACT Child Score (range: 0 - 27) Incomplete documented in this encounter Plan of Treatment Upcoming Encounters Date Type Specialty Care Team Description 12/17/2022 Office Visit Cardiology Wellington Parrish PA-C [address] [place] [id number] 01/07/2023 Office Visit Hematology Oncology Garfield Preciado MD [address] [place], [place] [address] 01/11/2023 Office Visit Urology Torrey Abdi MD [address] [address] [place] [id number] 01/14/2023 Nurse Only Ancillary Candice Nurse Annual [facility] [address] [place] [address] [place] [id number] 01/27/2023 Nurse Only Urology Darrick, Nurse Urology Geoff [address] [place] [id number] 03/02/2023 Cardiac Studies Cardiology Candice, Pacer Clinic Geoff Hollingsworth [address] [place] [address] 04/20/2023 Office Visit Family Medicine Nicky Desouza PA-C [address] [place] [address] [place] [phone] 05/03/2023 Office Visit Family Medicine Anna King MD [address] [place] [address] [place] [id number] 08/10/2023 Cardiac Studies Cardiac Studies 2023 Office Visit Family Medicine Anna King MD [address] [place] [address] [place] [id number] Scheduled Procedures Name Priority Associated Diagnoses Date/Ti me COLONOSCOPY FLEXIBLE PROXIMAL DIAGNOSTIC Recall History of colon polyps Health Maintenance Due Date Last Done Comments COLONOSCOPY-EVERY 3 YRS AGES 18-100 12/17/2020 12/17/2017, 12/17/2017, 11/09/2014, Additional history exists Depression Screening 01/12/2023 01/12/2022, 05/19/19 18 Albumin/Creatinine Ratio 02/13/2023 02/13/2022, 10/09 CKD PHOS USE SMARTSET 10112 02/13/20230 07/2022, 02/11/2021, 03/04/2020, Additional history exists GFR 04/20/2023 10/20/2022, 06/10, 06/04/2022, Additional history exists CKD HGB USE SMARTSET 72717 10/21/202310/20, 10/20/2022, 07/08/2022, Additional history exists TSH [...] as of this encounter Visit Diagnoses Diagnosis Chronic respiratory failure with hypoxia and hypercapnia (HCC)- Primary Bronchiectasis without complication (HCC) Bronchiectasis without acute exacerbation Restrictive lung disease Other diseases of lung, not elsewhere classified Acquired elevated diaphragm Disorders of diaphragm Pulmonary hypertension (HCC) Other chronic pulmonary heart diseases RUDY (obstructive sleep apnea) Obstructive sleep apnea (adult) (pediatric) Chronic diastolic congestive heart failure (HCC) Chronic diastolic heart failure Lung nodule Solitary pulmonary nodule documented in this encounter Care Teams Rn Disease Management Relationship Specialty Start Date End Date Anna King MD [address] [place] [address] [place] [id number] PCP - General Family Medicine 07/24/13 documented as of this encounter
--- OUTSIDE RECORDS SUMMARY | 2023-01-02 23:07 | External Medical Summary ---
Author Name Unknown Address Unknown Organization [id number]:LABORATORY [facility] [place] - [address] [place] [address] Laboratory Report Ordering Provider Test Date Status EILEEN PEACOCK 10/20/2022 09:44:38 Final Observation Date Value Abnormality Reference (Units ) Status SYNC LEUKOCYTES IN BLOOD BY AUTOMATED COUNT 10/20/2022 09:44:38 10.22 4.00-10.80 (K/uL) Final Segs 10/20/2022 09:44:38 71.4 40.0-75.0 (%) Final Lymphs % 10/20/2022 09:44:38 16.8 Below low normal 18.0-42.0 (%) Final Monos 10/20/2022 09:44:38 8.9 1.0-11.0 (%) Final Eosinophils 10/20/2022 09:44:38 2.1 0.0-6.0 (%) Final Basos 10/20/2022 09:44:38 0.5 0.0-2.0 (%) Final Immature Granulocyte, Percent 10/20/2022 09:44:38 0.3 0.0-2.0 (%) Final Absolute Segs 10/20/2022 09:44:38 7.30 1.80-7.70 (K/uL) Final Lymphs, absolute 10/20/2022 09:44:38 1.72 1.00-4.80 (K/ul) Final Monos, Abs 10/20/2022 09:44:38 0.91 0.00-1.10 (K/uL) Final Eos, Abs 10/20/2022 09:44:38 0.21 0.00-0.70 (K/uL) Final Basos, Abs 10/20/2022 09:44:38 0.05 0.00-0.20 (K/uL) Final Immature Granulocytes, Number 10/20/2022 09:44:38 0.03 0.00-0.20 (K/uL) Final Performing Location LABORATORY [facility] - [facility] [address] [facility] [id number]
--- OUTSIDE RECORDS SUMMARY | 2023-01-02 23:07 | External Medical Summary ---
Author Name Unknown Address Unknown Organization [id number]:[facility]ORY [facility] [place] [address] [place] [address] Laboratory Report Ordering Provider Test Date Status EILEEN PEACOCK 10/20/2022 09:44:38 Final Observation Date Value Abnormality Reference (Units ) Status TSH 10/20/2022 09:44:38 3.87 0.27-4.20 (uIU/mL) Final Performing Location LABORATORY C - [address] [place] [address]
--- OUTSIDE RECORDS SUMMARY | 2023-01-02 23:07 | External Medical Summary | Summary of Care ---
Author Name Unknown Organization [facility] Address [address] [place] [address] Phone [phone] Care Team Providers Care Diamond Cleaver Name Role Phone Anna King MD Primary Care Provide r Reason for Visit * Reason Onset Date Comments Order Request 09/29/2022 BIPAP filters Encounter Details Date Type Department Care Team Description 09/29/2022 Telephone Pulmonary Medicine, [facility] [address] [place] [id number] Magalys Dexter CRNP [address] [place] [id number] Order Request (BIPAP Monitise) Allergies Active Allergy Reactions Severity Noted Date Comments Niacin 09/20/2002 niaspan-flushing Oxycodone-Acetaminophen 08/18/2014 Propoxyphene Napsylate 03/08/2003 rash documented as of this encounter (statuses as of 09/30/2022) Medications Medication Sig Dispensed Refills Start Date [...] as of this encounter (statuses as of 09/30/2022) Active Problems Problem Noted Date Chronic respiratory failure with hypoxia and hypercapnia [...] chronic 02/27/2020 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 02/27/2020 Pancreas [...] as of this encounter (statuses as of 09/30/2022) Resolved Problems Problem Noted Date Resolved Date [...] IIA(T1c, N0, M0, PSA: Less than 10, [place] 7) - Signed by Jace Means MD [...] as of this encounter (statuses as of 09/30/2022) Immunizations Name Administration Dates Next Due COVID-19 mRNA, LNP-s, No Pre serve, 2-Dose Series (Moderna) 12/01/2020,04/17/2020,03/20/2020 Covid-19 Mrna, Lnp-s, No Pre serve, Booster (Moderna) 12/10/2020 Covid-19, Mrna, Lnp-s, Pf, B [...] encounter Miscellaneous Notes * Telephone Encounter - JHONNY Thurman - 09/30/2022 12:38 PM EDT Order placed. * Telephone Encounter - RUDY Shaikh - 09/29/2022 10:05 AM EDT Patient's , Shruti calling to request that an order for filters for BIPAP be sent to . Shruti provided a number [id number]. documented in this encounter Plan of Treatment Upcoming Encounters Date Type Specialty Care Team Description 10/20/2022 Office Visit Family Medicine Anna King MD [address] [place] [address] [place] [id number] 10/27/2022 Nurse Only Urology Darrick, Nurse Urology Geoff [address] [place] [phone] 10/28/2022 Office Visit Family Medicine Eliana Cason PA-C [address] [place] [address] [place] [id number] 10/30/2022 Office Visit Sleep Disorders Magalys Dexter CRNP [address] [place] [address] 12/17/2022 Office Visit Cardiology Wellington Parrish PA-C [address] [place] [address] 01/07/2023 Office Visit Hematology Oncology Garfield Preciado MD [address] [place] [address] 01/11/2023 Office Visit Urology Torrey Abdi MD [address] [place] [address] [place] [address] 01/14/2023 Nurse Only Ancillary Candice Nurse Annual [address] [place] [phone] 03/02/2023 Cardiac Studies [facility] [address] [facility] [place] [address] 05/03/2023 Office Visit Family Medicine Anna Knig MD [address] [place] [address] [place] [id number] 08/10/2023 Cardiac Studies Cardiac Studies Scheduled Procedures Name Priority Associated Diagnoses Date/Ti me COLONOSCOPY FLEXIBLE PROXIMAL DIAGNOSTIC Recall History of colon polyps Health Maintenance Due Date Last Done Comments COLONOSCOPY-EVERY 3 YRS AGES 18-100 12/17/2020 12/17/2017, 12/17/2017, 11/09/2014, Additional history exists Influenza Vaccine (FLU shot) (#1) 2022 10/20/2021, 10/24/2020, 10/26/2019, Additional history exists GFR 01/07/2023 07/08/2022, 05/10, 02/13/2022, Additional history exists Depression Screening, Annual for Pts 12 and Over 01/12/2023 01/12/2022, 05/18/2017 Albumin/Creatinine Ratio 02/13/2023 02/13/2022, 10/09 CKD PHOS USE SMARTSET 87642 02/13/202307/2022, 02/11/2021, 03/04/2020, Additional history exists TSH 06/05/2023 06/04/2022, 07/2022, 10/02/2021, Additional history exists CKD HGB USE SMARTSET 09162 07/09/202307/08, 07/08/2022, 02/13/2022, Additional history exists DTaP,Tdap,and Td Vaccines (2 - Td or Tdap) 06/02/2027 06/01/2017, 12/14/2007 Hepatitis B Completed 11/11/2011, 03/2011, 05/13/2011 Pneumococcal Vaccine: 65+ Years Completed 04/17/2014, 06/13/2008 Zoster Vaccines Completed 05/03/2020, 05/2019, 05/05/2010 COVID-19 Vaccine Completed 12/19/2021, 03/2020, 12/01/2020, Additional history exists GARDASIL-HPV IMMUNIZATION SERIES Aged Out No longer eligible based on patient's age to complete this topic MENINGOCOCCAL (MENACTRA/MENVEO) Aged Out No longer eligible based on patient's age to complete this topic documented as of this encounter Medical Devices Not on filedocumented as of this encounter Visit Diagnoses Diagnosis RUDY on CPAP- Primary Obstructive sleep apnea (adult) (pediatric) documented in this encounter Care Teams Diamond Cleaver Relationship Specialty Start Date End Date Anna King MD [address] [place] [address] [place] [id number] PCP - General Family Medicine 07/24/13 documented as of this encounter
--- OUTSIDE RECORDS SUMMARY | 2023-01-02 23:07 | External Medical Summary ---
Author Name Unknown Address Unknown Organization [id number]:[facility] [place] - [address] [place] [address] Laboratory Report Ordering Provider Test Date Status EILEEN PEACOCK 10/20/2022 09:44:38 Final Observation Date Value Abnormality Reference (Units ) Status BUN 10/20/2022 09:44:38 17 6-20 (mg/dL) Final Creatinine 10/20/2022 09:44:38 1.2 0.6-1.2 (mg/dL) Final Glomerular filtration rate/1.73 sq M.predicted [Volume Rate/Area] in Serum, Plasma or Blood by Creatinine-based formula (CKD-EPI) 10/20/2022 09:44:38 60 >=60 (mL/min) Final eGFR is calculated based on the CKD-EPI 2020 equation SODIUM 10/20/2022 09:44:38 143 135-146 (m mol/L) Final Potassium 10/20/2022 09:44:38 4.7 3.5-5.1 (m mol/L) Final Cl 10/20/2022 09:44:38 100 98-107 (mm ol/L) Final CO2 10/20/2022 09:44:38 35 Above high normal 22 -32 (mmol/L) Final Anion gap 10/20/2022 09:44:38 8 7-15 (mmol /L) Final Glucose 10/20/2022 09:44:38 77 70-120 (mg /dL) Final Calcium 10/20/2022 09:44:38 9.6 8.4-10.2 ( mg/dL) Final Performing Location [facility] [place] - [address] [place] [address]
--- OUTSIDE RECORDS SUMMARY | 2023-01-02 23:07 | External Medical Summary ---
Author Name Unknown Address Unknown Organization K01:[facility] [place] - [address] [place], [place] [address] [place] [address] Laboratory Report Ordering Provider Test Date Status EILEEN PEACOCK 10/20/2022 09:44:38 Final Observation Date Value Abnormality Reference (Units ) Status WBC, Total 10/20/2022 09:44:38 10.22 4.00-10.8 0 (K/uL) Final RBC 10/20/2022 09:44:38 4.45 4.50-5.25 (M/uL) Final Hemoglobin 10/20/2022 09:44:38 13.8 Below low normal 14 .0-16.8 (g/dL) Final Anemia reflex testing trigge rs on a HGB < 12.0 for Females and HGB < 13.0 for Males in accordance with the WHO Anemia Guidelines
Anemia reflex testing triggers on a HGB < 12.0 for Females and HGB < 13.0 for Males in accordance with the WHO Anemia Guidelines HCT 10/20/2022 09:44:38 45.1 40.0-48.4 (%) Final MCV 10/20/2022 09:44:38 101.3 82.0-99.5 (fL) Final MCH 10/20/2022 09:44:38 31.0 27.0-34.0 (pg) Final MCHC 10/20/2022 09:44:38 30.6 32.0-36.0 (g/dL) Final RDW 10/20/2022 09:44:38 14.7 11.5-15.5 (%) Final Platelets 10/20/2022 09:44:38 196 140-400 (K /uL) Final MPV 10/20/2022 09:44:38 11.3 6.6-11.1 ( fL) Final Nucleated erythrocytes/100 leukocytes [Ratio] in Blood by Automated count 10/20/2022 09:44:38 0 <=0 (/100 WBCs) Fi nal Performing Location [facility] [place] - [address] [facility] [address]
[2023-01-02] MEDS ORDERED: ALBUT/IPRATROP 3MG/0.5MG NEB 3 ML VIAL NEB STA (23:16)
[2023-01-02] MEDS ORDERED: PIPERACILLIN/TAZOBACTAM 4.5 GM/100 ML BAG IV ONE (23:16)
--- NOTE | 2023-01-02 23:26 | Emergency Department Note ---
History of Present Illness General Chief complaint: Tachycardia Stated complaint: TACHYCARDIA, SLUGGISH Time Seen by Provider: 01/02/23 23:06 History of Present Illness 82-year-old male with PMH chronic atrial fibrillation chronically anticoagulated on Eliquis, tachybradycardia syndrome s/p pacemaker, HLD, chronic respiratory failure on chronic oxygen, chronic CHF preserved EF, hypothyroidism, CKD III, depression, anxiety, RLS, RUDY presented to ER c/o SOB today. Apparently today the patient was regurgitating and the nursing was concerned and gave him a liter of fluids. He then became acutely short of breath and his sats were 81% on his chronic 4 L. EMS was summoned. Patient has a history of aspiration. Patient himself complains of shortness of breath. He denies chest pain, fever, chills, abdominal pain, flulike illness. He wears BiPAP at night. He is coming from a snf. Family is present. Some of history is obtained from the family along with EMS. Home Medications Medication Instructions Recorded Confirmed Type albuterol sulfate 90 mcg/actuation 2 puff inhalation BID 08/03/22 11/30/22 History aerosol inhaler apixaban 2.5 mg tablet (Eliquis) 2.5 mg PO BID 08/03/22 11/30/22 History aspirin 81 mg capsule 81 mg PO QAM 08/03/22 11/30/22 History atorvastatin 20 mg tablet (Lipitor) 20 mg PO HS 08/03/22 11/30/22 History calcium carbonate 600 mg-vitamin 1 tab PO QAM 08/03/22 11/30/22 History D3 10 mcg (400 unit) tablet (Calcium 600 + D(3)) cyclosporine 0.05 % eye drops in a 1 drp ophthalmic (eye) Q12H PRN 08/03/22 11/30/22 History dropperette (Restasis) Dry Eye(S) diltiazem HCl 180 mg 180 mg PO QAM 08/03/22 11/30/22 History capsule,extended release 24 hr escitalopram oxalate 20 mg tablet 20 mg PO QAM 08/03/22 11/30/22 History (Lexapro) fluticasone 250 mcg-salmeterol 50 1 inh inhalation BID 08/03/22 11/30/22 History mcg/dose blistr powdr for inhalation (Wixela Inhub) guaifenesin 600 mg tablet, 600 mg PO BID 08/03/22 11/30/22 History extended release 12 hr (Mucinex) levothyroxine 75 mcg tablet 75 mcg PO QAM 08/03/22 11/30/22 History lutein 20 mg tablet 20 mg PO HS 08/03/22 11/30/22 History magnesium 200 mg tablet 400 mg PO HS 08/03/22 11/30/22 History metoprolol tartrate 25 mg tablet 25 mg PO BID 08/03/22 11/30/22 History mirtazapine 30 mg tablet (Remeron) 30 mg PO HS 08/03/22 11/30/22 History multivitamin 1 tab PO QAM 08/03/22 11/30/22 History olanzapine 5 mg tablet (Zyprexa) 5 mg PO HS 08/03/22 11/30/22 History ropinirole 1 mg tablet 1 mg PO HS 08/03/22 11/30/22 History spironolactone 25 mg tablet 12.5 mg PO UD 08/03/22 11/30/22 History tamsulosin 0.4 mg capsule 0.4 mg PO QAM 08/03/22 11/30/22 History acetaminophen 500 mg tablet 1,000 mg (2 x 500 mg) PO TID pain 08/17/22 11/30/22 Rx (Tylenol Extra Strength) 30 days #180 tabs sodium chloride 3 % for 3 ml inhalation BID 11/30/22 11/30/22 History nebulization torsemide 20 mg tablet 40 mg PO DAILY 11/30/22 11/30/22 History cyclobenzaprine 5 mg tablet 5 mg PO TID 30 days #90 tabs 12/18/22 Rx hydrocodone 5 mg-acetaminophen 325 See Rx Instructions .Route 12/18/22 Rx mg tablet .COMPLEX PRN pain #30 tabs potassium chloride 10 mEq 40 meq (4 x 10 mEq) PO QAM 30 days 12/18/22 11/30/22 Rx capsule,extended release #0 caps Allergies Allergy/AdvReac Type Severity Reaction Status Date / Time oxycodone Allergy Unknown Flushing Verified 09/24/22 13:02 propoxyphene Allergy Unknown Flushing Verified 09/24/22 13:02 niacin AdvReac Unknown flushed Verified 09/24/22 13:02 feeling Past Med/Surg History Medical History Chronic respiratory failure Encounter for pre-operative examination Prostate cancer Around 2013- s/p brachytherapy - Lupron q 3 months Pulmonary disease restrictive lung disease, hypoxic respiratory failure, hypercapnic respiratory failure , bronchiectasis, 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, 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 per records Aortic stenosis Mild per 2021 ECHO Diastolic heart failure Compensated per cardio records Hx of pyoderma gangrenosum BLE On anticoagulant therapy eliquis Chronic kidney disease (CKD), stage III (moderate) Restless leg syndrome Anxiety and depression A-fib follows w/ [facility] cardio, Wellington Parrish on Eliquis Pacemaker medtronic, last checked 05/13/22, remotely Hypothyroidism Hyperlipidemia HTN (hypertension) Sleep apnea bipap; 3 lpm hs Asthmatic bronchitis Breathing stable - chronic (hx of smoker) Tachy-noni syndrome s/p pacemaker placement 2017 Surgical History Status post left hip replacement History of surgery Rectal fissure repair S/P placement of cardiac pacemaker Hx of colonoscopy Hx of tonsillectomy Hx of total hip arthroplasty RIGHT Family History Other No family history of adverse response to anesthesia Social History Smoking Status: Former smoker Tobacco Type: Cigarettes Second Hand Exposure: No; Do You Dip or Chew Tobacco: No; Hx Alcohol Use: No Hx Substance Use: No Preferred Language: Czech Communication Ability: Effective Client Support Representative Required: No Beliefs That Will Affect Care: None Current Living Situation: Spouse Feels Safe at Home: Yes Assistive Devices: Cane, Oxygen - Continuous and Walker Review of Systems A total of 10 systems reviewed and were otherwise negative Physical Exam Vital Signs Vital Signs - 24 hr 01/02/23 23:19 01/02/23 23:23 01/02/23 23:34 Temperature Temperature Source Pulse Rate 112 H Respiratory Rate 22 22 Respiratory Effort / Characteristics Spontaneous Spontaneous Respiratory Depth Normal Respiratory Pattern Regular Blood Pressure Blood Pressure Mean Pulse Oximetry 92 92 92 Oxygen Delivery Method BiPAP BiPAP Non-rebreather Oxygen Flow Rate 15 Fraction of Inspired Oxygen 60 60 Sepsis Recent Fever Within 48 Hours Sepsis New/Unexplained Change in Mental Status Sepsis Action Taken by Nursing Pulse Oximetry Post Tiitration 92 01/02/23 23:40 01/02/23 23:40 Temperature 36.3 C L Temperature Source Axillary Pulse Rate 108 H Respiratory Rate 24 Respiratory Effort / Characteristics Short of Breath SOB on Exertion Respiratory Depth Respiratory Pattern Blood Pressure 108/76 Blood Pressure Mean 86 Pulse Oximetry 92 Oxygen Delivery Method BiPAP BiPAP Oxygen Flow Rate Fraction of Inspired Oxygen Sepsis Recent Fever Within 48 Hours No Sepsis New/Unexplained Change in Mental Status No Sepsis Action Taken by Nursing Physician Notified Pulse Oximetry Post Tiitration VITALS: Vitals are noted on the nurse's note and reviewed by myself. Vital signs stable. GENERAL: Elderly male working to breathe on a nonrebreather 15 L coughing, in no acute distress, nondiaphoretic, well-developed well-nourished. SKIN: Capillary reflex less than 2 seconds. HEENT: Normocephalic. PERRLA. EOMI. Nares patent. Mucous membranes moist. Neck is supple without nuchal rigidity. HEART: Regular rate and rhythm LUNGS: Bibasilar rales. No retractions or accessory muscle use. ABDOMEN: Positive bowel sounds x 4. Normal tympanic percussion. Soft, nontender, without masses or organomegaly. Multani sign negative. No guarding or rebound tenderness. No CVA tenderness MUSCULOSKELETAL: No gross musculoskeletal defects. NEURO: Patient was alert and oriented to person place and time. Normal sensation to light and sharp touch. No focal neurological deficits. Course Administered Medications Discontinued Medications Albuterol (Albut/Ipratrop 3mg/0.5mg Neb 3 Ml Vial) 3 ml NEB NOW STA; Protocol Stop: 01/02/23 23:17 Last Admin: 01/02/23 23:23 Dose: 3 ml Documented By: ALANNA Furosemide (Furosemide 40 Mg/4 Ml Vial) 40 mg IV ONE ONE Stop: 01/03/23 00:16 Last Admin: 01/03/23 00:21 Dose: 40 mg Documented By: JOURDAN Piperacillin Sod/Tazobactam Sod (Zosyn) 4.5 gm in 100 mls @ 200 mls/hr IV NOW ONE Stop: 01/02/23 23:45 Last Admin: 01/02/23 23:58 Dose: 200 mls/hr Documented By: JOURDAN Critical Care Time Critical Care Time: Yes Total Critical Care Time: 35 I have personally spent 35 minutes of critical care time in the direct management of this patient. This includes bedside care, interpretation of diagnostic studies, and testing, discussion with consultants, patient, and family members, and other required patient management activities. This 35 minutes is in excess of all separately billable procedures. Medical Decision Making Medical Records Attestation: I reviewed the patient's medical records. Home Medications Current Medication List: was personally reviewed by me Laboratory Data Attestation: I reviewed the patient's lab results. 01/02/23 23:36 01/02/23 23:36 Lab Results 01/02/23 01/02/23 Range/Units 23:36 23:46 WBC 7.39 (4.8-10.8) K/ul RBC 3.94 L (4.70-6.10) M/uL Hgb 11.4 L (14.0-18.0) g/dl Hct 37.6 L (42.0-52.0) % MCV 95.4 (80.0-100.0) fL MCH 28.9 (25.0-34.0) pg MCHC 30.3 L (32.0-36.0) g/dL RDW Std Deviation 54.8 H (36.4-46.3) fL RDW Coeff of Reuben 15.6 H (11.5-14.5) % Plt Count 197 (130-400) K/uL MPV 11.2 (9.4-12.4) fL Immature Gran % (Auto) 0.4 % Neut % (Auto) 68.1 % Lymph % (Auto) 18.0 % Tompkins % (Auto) 10.8 % Eos % (Auto) 2.2 % Baso % (Auto) 0.5 % Neut # (Auto) 5.03 (1.40-6.50) K/uL Lymph # (Auto) 1.33 (1.20-3.40) K/uL Tom[place]kins # (Auto) 0.80 H (0.11-0.59) K/uL Eos # (Auto) 0.16 (0.00-0.50) K/uL Baso # (Auto) 0.04 (0.00-0.20) K/uL Immature Gran # (Auto) 0.03 (0.01-0.20) K/uL PT 12.3 H (9.0-12.0) Seconds INR 1.1 (0.9-1.1) APTT 31.2 H (21.0-31.0) Seconds PTT Ratio 1.1 VBG pH 7.38 (7.36-7.41) VBG pCO2 69 H (38-50) mmHg VBG pO2 41 mmHg VBG HCO3 41 mmol/L VBG O2 Saturation 63.1 % VBG Base Excess 12.5 mEq/L Sodium 140 (136-145) mmol/L Potassium 4.8 (3.5-5.1) mmol/L Chloride 97 L (98-107) mmol/L Carbon Dioxide 38 H (21-32) mmol/L Anion Gap 5 (3-11) BUN 30 H (6-23) mg/dl Creatinine 1.50 H (0.6-1.4) mg/dl Est Cr Clr Drug Dosing Not Reportable Est GFR ( Amer) 49.5 ml/min Est GFR (Non-Af Amer) 42.7 ml/min BUN/Creatinine Ratio 20.0 (10-20) Glucose 108 H (70-99(Fasting)) mg/dl Lactate 1.1 (0.4-2.0) mmol/L Calcium 9.7 (8.6-10.3) mg/dl Magnesium 2.1 (1.7-2.4) mg/dl Total Bilirubin 0.7 (0.2-1.0) mg/dl Direct Bilirubin 0.2 (0-0.2) mg/dl AST 15 (13-39) U/L ALT 10 (7-52) U/L Alkaline Phosphatase 89 (34-104) U/L Total Creatine Kinase 27 L (30-223) U/L Troponin I High Sens 4.0 (0-20) pg/ml B-Natriuretic Peptide 252 H (0-100) pg/ml Total Protein 6.7 (6.0-8.3) gm/dl Albumin 3.7 (3.4-5.0) gm/dl Procalcitonin < 0.05 (0-0.5) ng/ml TSH 3.639 (0.300-4.500) uIu/ml Imaging Data Attestation: I personally reviewed and interpreted this imaging study as follows: MDM Narrative Prior records/ancillary studies reviewed. Triage Nursing notes reviewed. Additional history obtained from the EMS and and family The patient's history was concerning for respiratory difficulties. Differential diagnosis: Etiologies such as infections, reactive airway disease, pneumonia, pneumothorax, COPD, CHF, cardiac ischemia, pulmonary embolism, musculoskeletal, gastrointestinal, as well as others were entertained. Physical examination: As above. ER treatment provided: An order was placed for continuous cardiac monitoring. The monitor shows a rate of 60-1 20 with a A-fib rhythm per my interpretation. BiPAP was immediately initiated, DuoNeb and Zosyn was ordered On reassessment the patient felt better. Diagnostic interpretation by me: The electrocardiogram was ordered for SOB. ECG: Right bundle with A-fib rate of 109 independently interpreted by myself. Unchanged from prior. The labs Independently Interpreted by myself revealed negative troponin. Elevated BNP. Blood cultures pending Mild anemia. No worrisome leukocytosis Imaging studies: Chest x-ray with pulmonary congestion concerning for developing heart failure per my independent interpretation. Consultation: A consultation was placed with the hospitalist. The case was discussed and diagnostics were reviewed. The patient was evaluated in the ER for further treatment. This appears to be consistent with acute respiratory failure mostly from fluid overload. Patient was started immediately on BiPAP. He had great improvement. He was medicated as above. He was reassessed multiple times. Medicine is consulted and case discussed. Patient be admitted to the medical service.. By the evaluation outlined above emergent etiologies such as cardiac ischemia, pulmonary embolism, reactive airway disease, pneumothorax, musculoskeletal, serious bacterial infections, as well as others were deemed relatively unlikely. The pt informed about the findings as listed above. All questions were answered and pleased with the treatment. The chart was completed utilizing [employer] Speech voice recognition software. Grammatical errors, random word insertions, pronoun errors, and incomplete sentences are an occassional consequence of this system due to software limitations, ambient noise, and hardware issues. Any formal questions or concerns about the content, text, or information contained within the body of this dictation should be directly addressed to the physician assistant community director for clarification. Impression & Plan Acute respiratory failure, Acute on chronic heart failure with preserved ejection fraction (HFpEF) Discharge Plan Visit Data Chief Complaint: Tachycardia Stated Complaint: TACHYCARDIA, SLUGGISH ED Provider: Jack Farias ED Midlevel Provider: Kaylee Jerry Discharge Problem: Acute respiratory failure, Acute on chronic heart failure with preserved ejection fraction (HFpEF) Patient Disposition: Admitted As Inpatient Condition: Fair Forms Stand Alone Forms: My [facility] Prescriptions Prescriptions: No Action acetaminophen [Tylenol Extra Strength] 500 mg tablet 1,000 mg PO TID 30 Days Qty: 180 0RF Rx Instructions: Take 3 times per day to lessen pain. multivitamin Tablet 1 tab PO QAM fluticasone propion-salmeterol [Wixela Inhub] 250-50 mcg/dose Blister With Device 1 inh INHALATION BID atorvastatin [Lipitor] 20 mg Tablet 20 mg PO HS ropinirole 1 mg Tablet 1 mg PO HS Rx Instructions: administer 1-3 hours before bedtime diltiazem HCl 180 mg Capsule,Extended Release 24hr 180 mg PO QAM olanzapine [Zyprexa] 5 mg Tablet 5 mg PO HS spironolactone 25 mg Tablet 12.5 mg PO UD Rx Instructions: MON, WED, FRI levothyroxine 75 mcg Tablet 75 mcg PO QAM tamsulosin 0.4 mg Capsule 0.4 mg PO QAM mirtazapine [Remeron] 30 mg Tablet 30 mg PO HS albuterol sulfate 90 mcg/actuation HFA aerosol inhaler 2 puff INHALATION BID magnesium 200 mg Tablet 400 mg PO HS escitalopram oxalate [Lexapro] 20 mg Tablet 20 mg PO QAM cyclosporine [Restasis] 0.05 % Dropperette 1 drp OPHTHALMIC (EYE) Q12H PRN (Reason: Dry Eye(S)) metoprolol tartrate 25 mg Tablet 25 mg PO BID calcium carbonate-vitamin D3 [Calcium 600 + D(3)] 600 mg-10 mcg (400 unit) Tablet 1 tab PO QAM lutein 20 mg Tablet 20 mg PO HS Rx Instructions: give with meal/snack Eliquis 2.5 mg Tablet 2.5 mg PO BID guaifenesin [Mucinex] 600 mg Tablet Extended Release 12hr 600 mg PO BID aspirin 81 mg Capsule 81 mg PO QAM torsemide 20 mg tablet 40 mg PO DAILY sodium chloride 3 % solution for nebulization 3 ml INHALATION BID hydrocodone-acetaminophen 5-325 mg Tablet See Rx Instructions .ROUTE .COMPLEX PRN (Reason: pain) Qty: 30 0RF Rx Instructions: Please take 1 tab for pain 5 and lower, and 2 tabs for pain 6 and greater cyclobenzaprine 5 mg Tablet 5 mg PO TID 30 Days Qty: 90 0RF potassium chloride 10 mEq Capsule, Extended Release 40 meq PO QAM 30 Days Qty: 0 0RF Referrals Referrals: Anna King MD [Primary Care Provider] - Discharge Problem: Acute respiratory failure Qualifiers: Respiratory failure complication: hypoxia Qualified Code(s): J96.01 - Acute respiratory failure with hypoxia
[2023-01-02 23:57] LABS: Base Excess VBG 12.5 mEq/L; HCO3 VBG 41 mmol/L; Oxygen Saturation VBG 63.1 %; PCO2 VBG 69 mmHg (38-50); PO2 VBG 41 mmHg; pH VBG 7.38 (7.36-7.41)
[2023-01-03 00:11] LABS: Basophils # (auto) 0.04 K/uL (0.00-0.20); Basophils % (auto) 0.5 %; Eosinophils # (auto) 0.16 K/uL (0.00-0.50); Eosinophils % (auto) 2.2 %; Hematocrit (blood only) 37.6 % (42.0-52.0); Hemoglobin 11.4 g/dl (14.0-18.0); Immature Granulocytes # (auto) 0.03 K/uL (0.01-0.20); Immature Granulocytes % (auto) 0.4 %; Lymphocytes # (auto) 1.33 K/uL (1.20-3.40); Mean Corpuscular Hemoglobin 28.9 pg (25.0-34.0); Mean Corpuscular Hgb Conc 30.3 g/dL (32.0-36.0); Mean Corpuscular Volume 95.4 fL (80.0-100.0); Mean Platelet Volume 11.2 fL (9.4-12.4); Monocytes % (auto) 10.8 %; Neutrophils # (auto) 5.03 K/uL (1.40-6.50); Neutrophils % (auto) 68.1 %; Platelet Count 197 K/uL (130-400); RDW Coefficient of Variation 15.6 % (11.5-14.5); RDW Standard Deviation 54.8 fL (36.4-46.3); Red Blood Count 3.94 M/uL (4.70-6.10); White Blood Count 7.39 K/ul (4.8-10.8)
[2023-01-03 00:12] LABS: Alanine Aminotransferase 10 U/L (7-52); Albumin Level 3.7 gm/dl (3.4-5.0); Alkaline Phosphatase 89 U/L (34-104); Anion Gap 5 (3-11); Aspartate Aminotransferase 15 U/L (13-39); Bilirubin Direct 0.2 mg/dl (0-0.2); Bilirubin,Total 0.7 mg/dl (0.2-1.0); Blood Urea Nitrogen 30 mg/dl (6-23); Calcium 9.7 mg/dl (8.6-10.3); Carbon Dioxide 38 mmol/L (21-32); Chloride 97 mmol/L (98-107); Creatine Kinase 27 U/L (30-223); Est GFR (African American) 49.5 ml/min; Est GFR (Non-African American) 42.7 ml/min; Glucose 108 mg/dl (70-99(Fasting)); Magnesium 2.1 mg/dl (1.7-2.4); Potassium 4.8 mmol/L (3.5-5.1); Sodium 140 mmol/L (136-145); Total Protein 6.7 gm/dl (6.0-8.3)
[2023-01-03] MEDS ORDERED: FUROSEMIDE 40 MG/4 ML VIAL IV ONE (00:15)
[2023-01-03 00:21] LABS: INR 1.1 (0.9-1.1); Partial Thromboplastin Ratio 1.1; Partial Thromboplastin Time 31.2 Seconds (21.0-31.0); Prothrombin Time 12.3 Seconds (9.0-12.0)
[2023-01-03 00:27] LABS: Thyroid Stimulating Hormone 3.639 uIu/ml (0.300-4.500)
[2023-01-03 00:50] LABS: Adenovirus PCR Not Detected (NotDetected); Bordetella parapertussis PCR Not Detected (NotDetected); Bordetella pertussis PCR Not Detected (NotDetected); Chlamydia pneumoniae PCR Not Detected (NotDetected); Coronavirus 229E PCR Not Detected (NotDetected); Coronavirus CoV-2 (COVID19)PCR Not Detected (NotDetected); Coronavirus HKU1 PCR Not Detected (NotDetected); Coronavirus NL63 PCR Not Detected (NotDetected); Coronavirus OC43PCR Not Detected (NotDetected); Human Metapneumovirus PCR Not Detected (NotDetected); Influenza A PCR Not Detected (NotDetected); Influenza B PCR Not Detected (NotDetected); Mycoplasma pneumoniae PCR Not Detected (NotDetected); Parainfluenza Virus 1 PCR Not Detected (NotDetected); Parainfluenza Virus 2 PCR Not Detected (NotDetected); Parainfluenza Virus 3 PCR Not Detected (NotDetected); Parainfluenza Virus 4 PCR Not Detected (NotDetected); Respiratory Syncytial VirusPCR Not Detected (NotDetected); Rhinovirus/Enterovirus PCR Not Detected (NotDetected)
--- NOTE | 2023-01-03 01:57 | Emergency Department Note ---
ED Visit Note I have personally evaluated this patient examined him and reviewed the pertinent labs and data. I have discussed the case with Mayela Jerry, the physician home health assistant and agree with the plan. Please refer to the PA note. This patient was brought in after having respiratory distress. Prior to me seeing him Mayela had placed the patient on BiPAP and when I went in to see him he seems very comfortable and is oxygenating well with the BiPAP. He apparently has received IV fluids and has a degree of fluid overload. His chest x-ray shows cardiomegaly with some mild congestive changes as well. Lab work is pending as well and he will be admitted for further treatment and evaluation .
[2023-01-03] MEDS ORDERED: OLANZapine 10 MG/2.1 ML SDV IM STA (03:56)
--- NOTE | 2023-01-03 04:22 | History & Physical Report ---
Date of Service January 03, 2023 Assessment & Plan (1) Acute respiratory failure: Plan: 82-year-old male with past medical significant for gout, hyperlipidemia, hypothyroidism, restrictive lung disease, bronchiectasis without complication, chronic respiratory failure with hypoxia and hypercapnia, obstructive sleep apnea on BiPAP, mild persistent asthma, interstitial pulmonary disease, persistent atrial fibrillation, tachybradycardia syndrome, s/p pacemaker, chronic diastolic CHF, CKD stage III, hypertension, history of CAD, history of BPH, depression, history of prostate cancer, generalized anxiety disorder, PTSD, schizophrenia, was brought in because of aspiration, shortness of breath and confusion. Acute on chronic respiratory failure Possible aspiration Possible acute on chronic diastolic CHF Received IV Lasix and and Zosyn in the ER Will continue with Zosyn Will continue with IV Lasix 40 mg daily Monitor on telemetry Will follow echo I's and O's Consult cardiology in a.m. Aspiration Ongoing difficulty swallowing for last few days as per family History of esophageal dilatation in the past as per family N.p.o. except meds for now Consult GI and speech Placed on IV Zosyn Acute on chronic diastolic CHF Placed on IV Lasix 40 mg daily Follow labs Seems was on diuretics last admission History of obstructive sleep apnea On BiPAP nightly V BG pH is okay Confusion Mostly from above VBG is okay Will follow CT head History of restrictive lung disease History of chronic respiratory failure on 3 to 4 L oxygen History of mild persistent asthma History of interstitial pulmonary disease Continue home inhalers Nebs as needed History of persistent atrial fibrillation Tachybradycardia syndrome s/p pacemaker Continue home diltiazem and metoprolol and Eliquis IV Lopressor as needed History of CAD On aspirin statin and beta-dilip History of BPH on Flomax Generalized anxiety disorder Depression Schizophrenia PTSD on Lexapro, Remeron, Zyprexa Restless leg syndrome On ropinirole Hyperlipidemia On statin Hypothyroidism On Synthyroid Ambulatory dysfunction Currently not walking since his back surgery PT OT when stable Abnormal CT of the abdomen Last admission Cystic pancreatic lesions Needs follow-up History of prostate cancer Seems follows with heme-onc DVT prophylaxis On Eliquis Disposition Telemetry floor CODE STATUS Full code if there is chance of recovery as per discussion with the family History of Present Illness Chief Complaint: Aspiration and some confusion Primary Care Provider: Anna King MD 82-year-old male with past medical significant for gout, hyperlipidemia, hypothyroidism, restrictive lung disease, bronchiectasis without complication, chronic respiratory failure with hypoxia and hypercapnia, obstructive sleep apnea on BiPAP, mild persistent asthma, interstitial pulmonary disease, persistent atrial fibrillation, tachybradycardia syndrome, s/p pacemaker, chronic diastolic CHF, CKD stage III, hypertension, history of CAD, history of BPH, depression, history of prostate cancer, generalized anxiety disorder, PTSD, schizophrenia, was brought in because of aspiration, shortness of breath and confusion. Patient is coming from prison. Apparently patient seems to be doing regurgitating and the nurse was concerned and gave him a liter of fluids and after that the patient became acutely short of breath and was saturating 81% on his chronic 4 L oxygen. EMS was summoned and brought him to the hospital. Family is in the room. Daughter states he has history of esophageal dilatation in the past. Last several days he is having problems swallowing. They think he has aspirated and thinks probably needs esophageal dilatation. And also he was somewhat confused today. Patient recently had a back surgery and he was in rehab and currently prison. Since surgery patient is not ambulating. He is wheelchair-bound. There are no complaints of any pain. No fevers. No nausea. Currently patient is drowsy and confused could not get any history from the patient. Past medical history. As mentioned above Past surgical history. Colonoscopy. Cystoscopy. EGD with endoscopic ultrasound. Vasectomy. Proctosigmoidoscopy. Tonsillectomy. Bilateral hip replacement. Transperineal placement of needles in the prostate Social history. . Quit smoking 1978. Smoked 1.5 packs daily for 24 years. No alcohol currently. No drug use. Family history. Brother had BPH. Daughter has breast cancer. Diabetes. Sister has diabetes. Allergies Allergy/AdvReac Type Severity Reaction Status Date / Time oxycodone Allergy Unknown Flushing Verified 01/03/23 02:35 propoxyphene Allergy Unknown Flushing Verified 01/03/23 02:35 niacin AdvReac Unknown flushed Verified 01/03/23 02:35 feeling Home Medications Medication Instructions Recorded Confirmed Type albuterol sulfate 90 mcg/actuation 2 puff inhalation Q4 PRN Shortness 08/03/22 01/03/23 History aerosol inhaler Of Breath Or Wheezing apixaban 2.5 mg tablet (Eliquis) 2.5 mg PO BID 08/03/22 01/03/23 History aspirin 81 mg capsule 81 mg PO QAM 08/03/22 01/03/23 History atorvastatin 20 mg tablet (Lipitor) 20 mg PO HS 08/03/22 01/03/23 History calcium carbonate 600 mg-vitamin 1 tab PO QAM 08/03/22 01/03/23 History D3 10 mcg (400 unit) tablet (Calcium 600 + D(3)) cyclosporine 0.05 % eye drops in a 1 drp ophthalmic (eye) Q12H PRN 08/03/22 01/03/23 History dropperette (Restasis) Dry Eye(S) diltiazem HCl 180 mg 180 mg PO QAM 08/03/22 01/03/23 History capsule,extended release 24 hr guaifenesin 600 mg tablet, 600 mg PO BID 08/03/22 01/03/23 History extended release 12 hr (Mucinex) levothyroxine 75 mcg tablet 75 mcg PO QAM 08/03/22 01/03/23 History metoprolol tartrate 25 mg tablet 25 mg PO BID 08/03/22 01/03/23 History olanzapine 5 mg tablet (Zyprexa) 5 mg PO HS 08/03/22 01/03/23 History ropinirole 1 mg tablet 1 mg PO HS 08/03/22 01/03/23 History tamsulosin 0.4 mg capsule 0.4 mg PO QAM 08/03/22 01/03/23 History cyclobenzaprine 5 mg tablet 5 mg PO TID 30 days #90 tabs 12/18/22 01/03/23 Rx Naloxone 4mg/0.1ml 0 mg intranasal DIRECTED PRN 01/03/23 01/03/23 History .opiod od acetaminophen 500 mg tablet 1,000 mg PO Q8 PRN pain 01/03/23 01/03/23 History (Tylenol Extra Strength) docusate sodium 100 mg capsule 100 mg PO BID 01/03/23 01/03/23 History escitalopram oxalate 10 mg tablet 20 mg PO DAILY 01/03/23 01/03/23 History fluticasone furoate 100 1 inh inhalation DAILY 01/03/23 01/03/23 History mcg-vilanterol 25 mcg/dose inhalation powder (Breo Ellipta) hydrocodone 5 mg-acetaminophen 325 1 tab PO Q6H PRN .Pain 4-10 11/26/23 11/26/23 History mg tablet magnesium oxide 400 mg PO DAILY 01/03/23 01/03/23 History mirtazapine 15 mg tablet 30 mg PO HS 01/03/23 01/03/23 History ondansetron HCl 4 mg tablet 4 mg PO Q4 PRN Nausea 01/03/23 01/03/23 History pantoprazole 40 mg tablet,delayed 40 mg PO BID 01/03/23 01/03/23 History release (Protonix) polyethylene glycol 3350 17 gram 17 g PO DAILY PRN Constipation 01/03/23 01/03/23 History oral powder packet (Miralax) potassium chloride 20 mEq 20 meq PO DAILY 01/03/23 01/03/23 History tablet,extended release pregabalin 100 mg capsule (Lyrica) 100 mg PO TID 01/03/23 01/03/23 History sennosides 8.6 mg-docusate sodium 1 tab-cap PO DAILY PRN Constipation 01/03/23 01/03/23 History 50 mg tablet (Senokot-S) sodium chloride 0.9 % 100 ml IV DIRECTED 01/03/23 01/03/23 History sodium chloride 3.5 % for 4 ml inhalation BID 01/03/23 01/03/23 History nebulization (Hyper-Ck) Past Med/Surg History Medical History Chronic respiratory failure Encounter for pre-operative examination Prostate cancer Around 2013- s/p brachytherapy - Lupron q 3 months Pulmonary disease restrictive lung disease, hypoxic respiratory failure, hypercapnic respiratory failure , bronchiectasis, 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, 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 per records Aortic stenosis Mild per 2021 ECHO Diastolic heart failure Compensated per cardio records Hx of pyoderma gangrenosum BLE On anticoagulant therapy eliquis Chronic kidney disease (CKD), stage III (moderate) Restless leg syndrome Anxiety and depression A-fib follows w/ [facility] cardio, [place] on Eliquis Pacemaker medtronic, last checked 05/13/22, remotely Hypothyroidism Hyperlipidemia HTN (hypertension) Sleep apnea bipap; 3 lpm hs Asthmatic bronchitis Breathing stable - chronic (hx of smoker) Tachy-noni syndrome s/p pacemaker placement 2017 Surgical History Status post left hip replacement History of surgery Rectal fissure repair S/P placement of cardiac pacemaker Hx of colonoscopy Hx of tonsillectomy Hx of total hip arthroplasty RIGHT Family History Other No family history of adverse response to anesthesia Social History Smoking Status: Former smoker Tobacco Type: Cigarettes Second Hand Exposure: No; Do You Dip or Chew Tobacco: No; Hx Alcohol Use: No Hx Substance Use: No Preferred Language: Turkish Communication Ability: Effective Marketing Technology Coordinator Required: No Beliefs That Will Affect Care: None Current Living Situation: Spouse Feels Safe at Home: Yes Assistive Devices: Cane, Oxygen - Continuous and Walker Review of Systems Review of Systems: Unobtainable due to reduced consciousness Physical Exam Physical Exam: General- Drowsy. Confused. Head- atraumatic Eyes- PERRL. ENT- oropharynx clear Neck- supple, no JVD. Lungs- clear to auscultation mild bibasilar crackles, no wheezing. Heart- regular rhythm; no murmur, no gallop. Abdomen- normal bowel sounds, soft, no distension Extremities- no pretibial edema, no erythema seen. Neuro- Drowsy. Confused. PERRL, no facial palsy. Skin- warm & dry Results & Data Results & Data Vital Signs (Past 12 Hours) Vital Signs Temp Pulse Pulse Resp BP BP Pulse Ox 01/03/23 03:20 110 H 17 93 01/03/23 03:00 120 H 20 131/108 H 95 01/03/23 01:00 109 H 22 127/79 90 01/02/23 23:40 01/02/23 23:40 36.3 C L 108 H 24 108/76 92 01/02/23 23:34 92 01/02/23 23:23 22 92 01/02/23 23:19 112 H 22 92 O2 Del Method O2 Flow Rate FiO2 01/03/23 03:20 70 01/03/23 03:00 BiPAP 01/03/23 01:00 BiPAP 01/02/23 23:40 BiPAP 01/02/23 23:40 BiPAP 01/02/23 23:34 BiPAP, Non-rebreather 15 01/02/23 23:23 BiPAP 60 01/02/23 23:19 60 Diagnostic Findings Laboratory Results WBC 7.39 K/ul (4.8-10.8) 01/02/23 23:36 RBC 3.94 M/uL (4.70-6.10) L 01/02/23 23:36 Hgb 11.4 g/dl (14.0-18.0) L 01/02/23 23:36 Hct 37.6 % (42.0-52.0) L 01/02/23 23:36 MCV 95.4 fL (80.0-100.0) 01/02/23 23:36 MCH 28.9 pg (25.0-34.0) 01/02/23 23:36 MCHC 30.3 g/dL (32.0-36.0) L 01/02/23 23:36 RDW Std Deviation 54.8 fL (36.4-46.3) H 01/02/23 23:36 RDW Coeff of Reuben 15.6 % (11.5-14.5) H 01/02/23 23:36 Plt Count 197 K/uL (130-400) 01/02/23 23:36 MPV 11.2 fL (9.4-12.4) 01/02/23 23:36 Immature Gran % (Auto) 0.4 % 01/02/23 23:36 Neut % (Auto) 68.1 % 01/02/23 23:36 Lymph % (Auto) 18.0 % 01/02/23 23:36 Villalba % (Auto) 10.8 % 01/02/23 23:36 Eos % (Auto) 2.2 % 01/02/23 23:36 Baso % (Auto) 0.5 % 01/02/23 23:36 Neut # (Auto) 5.03 K/uL (1.40-6.50) 01/02/23 23:36 Lymph # (Auto) 1.33 K/uL (1.20-3.40) 01/02/23 23:36 Villalba # (Auto) 0.80 K/uL (0.11-0.59) H 01/02/23 23:36 Eos # (Auto) 0.16 K/uL (0.00-0.50) 01/02/23 23:36 Baso # (Auto) 0.04 K/uL (0.00-0.20) 01/02/23 23:36 Immature Gran # (Auto) 0.03 K/uL (0.01-0.20) 01/02/23 23:36 PT 12.3 Seconds (9.0-12.0) H 01/02/23 23:36 INR 1.1 (0.9-1.1) 01/02/23 23:36 APTT 31.2 Seconds (21.0-31.0) H 01/02/23 23:36 PTT Ratio 1.1 01/02/23 23:36 VBG pH 7.38 (7.36-7.41) 01/02/23 23:46 VBG pCO2 69 mmHg (38-50) H 01/02/23 23:46 VBG pO2 41 mmHg 01/02/23 23:46 VBG HCO3 41 mmol/L 01/02/23 23:46 VBG O2 Saturation 63.1 % 01/02/23 23:46 VBG Base Excess 12.5 mEq/L 01/02/23 23:46 Sodium 140 mmol/L (136-145) 01/02/23 23:36 Potassium 4.8 mmol/L (3.5-5.1) 01/02/23 23:36 Chloride 97 mmol/L (98-107) L 01/02/23 23:36 Carbon Dioxide 38 mmol/L (21-32) H 01/02/23 23:36 Anion Gap 5 (3-11) 01/02/23 23:36 BUN 30 mg/dl (6-23) H 01/02/23 23:36 Creatinine 1.50 mg/dl (0.6-1.4) H 01/02/23 23:36 Est Cr Clr Drug Dosing Not Reportable 01/02/23 23:36 Est GFR ( Amer) 49.5 ml/min 01/02/23 23:36 Est GFR (Non-Af Amer) 42.7 ml/min 01/02/23 23:36 BUN/Creatinine Ratio 20.0 (10-20) 01/02/23 23:36 Glucose 108 mg/dl (70-99(Fasting)) H 01/02/23 23:36 Lactate 1.1 mmol/L (0.4-2.0) 01/02/23 23:36 Calcium 9.7 mg/dl (8.6-10.3) 01/02/23 23:36 Magnesium 2.1 mg/dl (1.7-2.4) 01/02/23 23:36 Total Bilirubin 0.7 mg/dl (0.2-1.0) 01/02/23 23:36 Direct Bilirubin 0.2 mg/dl (0-0.2) 01/02/23 23:36 AST 15 U/L (13-39) 01/02/23 23:36 ALT 10 U/L (7-52) 01/02/23 23:36 Alkaline Phosphatase 89 U/L (34-104) 01/02/23 23:36 Total Creatine Kinase 27 U/L (30-223) L 01/02/23 23:36 Troponin I High Sens 4.0 pg/ml (0-20) 01/02/23 23:36 B-Natriuretic Peptide 252 pg/ml (0-100) H 01/02/23 23:36 Total Protein 6.7 gm/dl (6.0-8.3) 01/02/23 23:36 Albumin 3.7 gm/dl (3.4-5.0) 01/02/23 23:36 Procalcitonin < 0.05 ng/ml (0-0.5) 01/02/23 23:36 TSH 3.639 uIu/ml (0.300-4.500) 01/02/23 23:36 Adenovirus (PCR) Not Detected (NotDetected) 01/02/23 23:36 B. pertussis DNA (PCR) Not Detected (NotDetected) 01/02/23 23:36 B.parapertussis DNA PCR Not Detected (NotDetected) 01/02/23 23:36 C. pneumoniae DNA (PCR) Not Detected (NotDetected) 01/02/23 23:36 Coronavirus OC43 (PCR) Not Detected (NotDetected) 01/02/23 23:36 Coronavirus HKU1 (PCR) Not Detected (NotDetected) 01/02/23 23:36 Coronavirus 229E (PCR) Not Detected (NotDetected) 01/02/23 23:36 SARS-CoV-2 (PCR) Not Detected (NotDetected) 01/02/23 23:36 Coronavirus NL63 (PCR) Not Detected (NotDetected) 01/02/23 23:36 Human Metapneumovir PCR Not Detected (NotDetected) 01/02/23 23:36 Influenza Type A (PCR) Not Detected (NotDetected) 01/02/23 23:36 Influenza Type B (PCR) Not Detected (NotDetected) 01/02/23 23:36 M. pneumoniae (PCR) Not Detected (NotDetected) 01/02/23 23:36 Parainfluenza 1 (PCR) Not Detected (NotDetected) 01/02/23 23:36 Parainfluenza 2 (PCR) Not Detected (NotDetected) 01/02/23 23:36 Parainfluenza 3 (PCR) Not Detected (NotDetected) 01/02/23 23:36 Parainfluenza 4 (PCR) Not Detected (NotDetected) 01/02/23 23:36 RSV (PCR) Not Detected (NotDetected) 01/02/23 23:36 Entero/Rhino (PCR) Not Detected (NotDetected) 01/02/23 23:36 ECG Additional Comments: ECG. Atrial fibrillation with rapid ventricular response rate of 109. ST-T abnormalities inferolateral and anterior leads Code Status & VTE Plan VTE Prophylaxis Plan VTE Prophylaxis will be ordered: Yes (1) Acute respiratory failure Respiratory failure complication: hypoxia Qualified Code(s): J96.01 - Acute respiratory failure with hypoxia
[2023-01-03] MEDS ORDERED: METOPROLOL TARTRATE 1 MG/ML VIAL IV STA ×3 (05:22→10:11)
--- NOTE | 2023-01-03 06:23 | CT Scan Report ---
Exam(s): CT HEAD Without Contrast EXAM: CT Head Without Intravenous Contrast CLINICAL HISTORY: Reason for exam: AMS. TECHNIQUE: Axial computed tomography images of the head/brain without intravenous contrast. CTDI is 36.79 mGy and DLP is 625.8 mGy-cm. Automated exposure control was utilized for the study. A dose lowering technique was utilized adhering to the principles of ALARA. COMPARISON: CT head performed 11/30/22 FINDINGS: There is no acute intracranial hemorrhage or major vascular territory infarct. No mass effect or midline shift seen. There is prominence of the ventricles and sulci consistent with generalized parenchymal volume loss. Scattered hypodensities throughout the periventricular and subcortical white matter are noted, likely sequela of chronic microvascular changes. The calvarium is intact. Bilateral lens replacements noted. The visualized paranasal sinuses and mastoid air cells are clear. IMPRESSION: No acute intracranial pathology. Generalized parenchymal volume loss and sequela of chronic microvascular ischemic angiopathy. Electronically signed by: Elmer Woodruff M.D. 01/03/23 06:22 AM
[2023-01-03] MEDS ORDERED: DOCUSATE SODIUM/SENNA 50/8.6MG TAB PO PRN (06:28)
[2023-01-03] MEDS ORDERED: ACETAMINOPHEN 500 MG TAB PO PRN (06:28)
[2023-01-03] MEDS ORDERED: NITROGLYCERIN SL 0.4 MG/TAB TAB SL PRN (06:28)
[2023-01-03] MEDS ORDERED: METOPROLOL TARTRATE 1 MG/ML VIAL IV PRN (06:28)
[2023-01-03] MEDS ORDERED: ALBUTEROL HFA 8 GM INHALER INH PRN (06:28)
[2023-01-03] MEDS ORDERED: HYDROCODONE/ACETAMOPHEN 5/325MG TAB PO PRN (06:28)
[2023-01-03] MEDS ORDERED: LEVALBUTEROL 1.25MG/0.5ML NEB NEB PRN (06:28)
[2023-01-03] MEDS ORDERED: Patient's HEIGHT &/or WEIGHT Needed SCH (07:00)
[2023-01-03 07:08] LABS: Basophils # (auto) 0.03 K/uL (0.00-0.20); Basophils % (auto) 0.4 %; Eosinophils # (auto) 0.06 K/uL (0.00-0.50); Eosinophils % (auto) 0.7 %; Hemoglobin 11.5 g/dl (14.0-18.0); Immature Granulocytes # (auto) 0.03 K/uL (0.01-0.20); Immature Granulocytes % (auto) 0.4 %; Lymphocytes % (auto) 9.4 %; Mean Corpuscular Hgb Conc 31.1 g/dL (32.0-36.0); Mean Corpuscular Volume 93.4 fL (80.0-100.0); Mean Platelet Volume 11.1 fL (9.4-12.4); Monocytes # (auto) 0.73 K/uL (0.11-0.59); Monocytes % (auto) 8.6 %; Neutrophils # (auto) 6.88 K/uL (1.40-6.50); Neutrophils % (auto) 80.5 %; Platelet Count 191 K/uL (130-400); RDW Coefficient of Variation 15.5 % (11.5-14.5); RDW Standard Deviation 53.6 fL (36.4-46.3); Red Blood Count 3.96 M/uL (4.70-6.10); White Blood Count 8.53 K/ul (4.8-10.8)
[2023-01-03] MEDS ORDERED: ARTIFICIAL TEARS OP PRN (07:15)
[2023-01-03 07:27] LABS: Anion Gap 7 (3-11); BUN Creatinine Ratio 18.8 (10-20); Blood Urea Nitrogen 28 mg/dl (6-23); Calcium 9.6 mg/dl (8.6-10.3); Carbon Dioxide 38 mmol/L (21-32); Chloride 97 mmol/L (98-107); Est GFR (African American) 49.9 ml/min; Est GFR (Non-African American) 43.1 ml/min; Glucose 108 mg/dl (70-99(Fasting)); Magnesium 1.9 mg/dl (1.7-2.4); Potassium 4.5 mmol/L (3.5-5.1); Sodium 142 mmol/L (136-145)
[2023-01-03 07:33] LABS: Troponin I High Sensitivity 4.2 pg/ml (0-20)
--- NOTE | 2023-01-03 08:13 | Electrocardiogram Report ---
Test Reason : Blood Pressure : / mmHG Vent. Rate : 109 BPM Atrial Rate : 000 BPM P-R Int : 000 ms QRS Dur : 096 ms QT Int : 360 ms P-R-T Axes : 000 -08 -39 degrees QTc Int : 484 ms Atrial fibrillation with rapid ventricular response Right bundle branch block Diffuse Nonspecific T wave abnormality Abnormal ECG When compared with ECG of 14-DEC-2022 05:28, No significant change Confirmed by Dionicio Smith ([id number] on 01/03/2023 8:12:33 AM Referred By: NO PCP Confirmed By:Dionicio Smith
[2023-01-03] MEDS ORDERED: NALOXONE HCL 0.4 MG/1 ML VIAL/CARP IV PRN (08:38)
[2023-01-03] MEDS ORDERED: POTASSIUM CHLORIDE CRTAB 20 MEQ TABCR PO SCH (09:00)
[2023-01-03] MEDS ORDERED: FUROSEMIDE 40 MG/4 ML VIAL IV SCH ×2 (09:00→17:00)
[2023-01-03] MEDS ORDERED: ASPIRIN 81 MG ECTAB PO SCH (09:00)
[2023-01-03] MEDS ORDERED: dilTIAZem HCL 180 MG CAPCR PO SCH (09:00)
[2023-01-03] MEDS ORDERED: FLUTICASONE/VILANTEROL 100/25MCG 14 PUFFS/INHALER INH SCH (09:00)
[2023-01-03] MEDS ORDERED: CALCIUM 600MG + VIT D 400 IU TAB PO SCH (09:00)
[2023-01-03] MEDS ORDERED: DOCUSATE SODIUM 100 MG CAP PO SCH (09:00)
[2023-01-03] MEDS ORDERED: MAGNESIUM OXIDE 400 MG TAB PO SCH (09:00)
[2023-01-03] MEDS ORDERED: PANTOprazole 40 MG TAB PO SCH (09:00)
[2023-01-03] MEDS ORDERED: LEVOTHYROXINE SODIUM 75 MCG TABLET PO SCH (09:00)
[2023-01-03] MEDS ORDERED: ESCITALOPRAM OXALATE 20 MG TAB PO SCH (09:00)
[2023-01-03] MEDS ORDERED: APIXABAN 2.5 MG TAB PO SCH (09:00)
[2023-01-03] MEDS ORDERED: METOPROLOL TARTRATE 25 MG TAB PO SCH (09:00)
[2023-01-03] MEDS ORDERED: TAMSULOSIN HCL 0.4 MG CAP PO SCH (09:00)
[2023-01-03] MEDS ORDERED: guaiFENesin 600 MG TABCR PO SCH (09:00)
[2023-01-03] MEDS: PIPERACILLIN/TAZOBACTAM 4.5 GM in DEXTROSE 5% MINI-B 100 ML IV SCH ×2 (09:19→16:17)
--- NOTE | 2023-01-03 09:57 | Cardiology Consultation ---
Date of Consultation January 03, 2023 Assessment & Plan (1) Acute on chronic respiratory failure with hypoxia and hypercapnia: (2) Acute on chronic diastolic (congestive) heart failure: (3) Aspiration into airway: (4) Atrial fibrillation with RVR: (5) Chronic kidney disease (CKD), stage III (moderate): Plan 82-year-old male presents with possible aspiration, acute respiratory failure, and mild volume overload secondary to IV fluids administered at fpc. Recommend furosemide 40 mg IV every 12 hours. Monitor daily weight, GFR, electrolytes, and fluid balance. Continue BiPAP and supplemental oxygen. Patient chronically wears 4 L nasal cannula due to history of interstitial pulmonary disease. Heart rate elevated in the emergency department. Patient about to receive a.m. medications including beta-dilip and nondihydropyridine calcium channel dilip therapy. Monitor heart rate. Consider titration of metoprolol 25 mg every 6 pending clinical response. Continue chronic anticoagulation with Eliquis. 2D echocardiogram pending. Further management of aspiration as per internal medicine. Addendum: Patient unable to swallow medication. Recommend Lopressor 5 mg IV every 4 hours. Consider addition of IV digoxin 250 mcg pending clinical response. Transition Eliquis to IV heparin while hospitalized. History of Present Illness Reason for Consultation: Acute CHF Requesting Physician: Dr. Girard Attending Physician: Maryam Askew MD History of Present Illness Per review of records, patient regurgitating earlier in the day 01/02/2023. Nursing concerned and gave him a liter of fluids. Patient became acutely short of breath with desaturation to 81% on chronic 4 L nasal cannula. EMS was summoned he was brought to the ER for further evaluation and treatment. Resident of a fpc. No family at bedside. A-fib RVR with heart rates ranging 120 up to 130s in the ER. Oxygen saturation 99% on BiPAP. Urine output has not been recorded although patient did receive 40 mg of intravenous furosemide last night. [facility]: 1. Diastolic congestive heart failure. Volume status has improved following transient titration of torsemide with follow-up metabolic panel results as detailed above. 2. Preserved LV systolic function 3. Mild aortic stenosis. 4. Chronic atrial fibrillation. Ventricular rates controlled. 5. 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 Patient prescribed reduced dose apixaban (Eliquis) anticoagulation given age and renal dysfunction, without current significant bleeding issues or concern. 7. 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 8. Stage III chronic kidney disease 9. Hypertension 10. Dyslipidemia. Allergies Allergy/AdvReac Type Severity Reaction Status Date / Time oxycodone Allergy Unknown Flushing Verified 01/03/23 02:35 propoxyphene Allergy Unknown Flushing Verified 01/03/23 02:35 niacin AdvReac Unknown flushed Verified 01/03/23 02:35 feeling Home Medications Medication Instructions Recorded Confirmed Type albuterol sulfate 90 mcg/actuation 2 puff inhalation Q4 PRN Shortness 08/03/22 01/03/23 History aerosol inhaler Of Breath Or Wheezing apixaban 2.5 mg tablet (Eliquis) 2.5 mg PO BID 08/03/22 01/03/23 History aspirin 81 mg capsule 81 mg PO QAM 08/03/22 01/03/23 History atorvastatin 20 mg tablet (Lipitor) 20 mg PO HS 08/03/22 01/03/23 History calcium carbonate 600 mg-vitamin 1 tab PO QAM 08/03/22 01/03/23 History D3 10 mcg (400 unit) tablet (Calcium 600 + D(3)) cyclosporine 0.05 % eye drops in a 1 drp ophthalmic (eye) Q12H PRN 08/03/22 01/03/23 History dropperette (Restasis) Dry Eye(S) diltiazem HCl 180 mg 180 mg PO QAM 08/03/22 01/03/23 History capsule,extended release 24 hr guaifenesin 600 mg tablet, 600 mg PO BID 08/03/22 01/03/23 History extended release 12 hr (Mucinex) levothyroxine 75 mcg tablet 75 mcg PO QAM 08/03/22 01/03/23 History metoprolol tartrate 25 mg tablet 25 mg PO BID 08/03/22 01/03/23 History olanzapine 5 mg tablet (Zyprexa) 5 mg PO HS 08/03/22 01/03/23 History ropinirole 1 mg tablet 1 mg PO HS 08/03/22 01/03/23 History tamsulosin 0.4 mg capsule 0.4 mg PO QAM 08/03/22 01/03/23 History cyclobenzaprine 5 mg tablet 5 mg PO TID 30 days #90 tabs 12/18/22 01/03/23 Rx Naloxone 4mg/0.1ml 0 mg intranasal DIRECTED PRN 01/03/23 01/03/23 History .opiod od acetaminophen 500 mg tablet 1,000 mg PO Q8 PRN pain 01/03/23 01/03/23 History (Tylenol Extra Strength) docusate sodium 100 mg capsule 100 mg PO BID 01/03/23 01/03/23 History escitalopram oxalate 10 mg tablet 20 mg PO DAILY 01/03/23 01/03/23 History fluticasone furoate 100 1 inh inhalation DAILY 01/03/23 01/03/23 History mcg-vilanterol 25 mcg/dose inhalation powder (Breo Ellipta) hydrocodone 5 mg-acetaminophen 325 1 tab PO Q6H PRN .Pain 4-10 01/03/23 01/03/23 History mg tablet magnesium oxide 400 mg PO DAILY 01/03/23 01/03/23 History mirtazapine 15 mg tablet 30 mg PO HS 01/03/23 01/03/23 History ondansetron HCl 4 mg tablet 4 mg PO Q4 PRN Nausea 01/03/23 01/03/23 History pantoprazole 40 mg tablet,delayed 40 mg PO BID 01/03/23 01/03/23 History release (Protonix) polyethylene glycol 3350 17 gram 17 g PO DAILY PRN Constipation 01/03/23 01/03/23 History oral powder packet (Miralax) potassium chloride 20 mEq 20 meq PO DAILY 01/03/23 01/03/23 History tablet,extended release pregabalin 100 mg capsule (Lyrica) 100 mg PO TID 01/03/23 01/03/23 History sennosides 8.6 mg-docusate sodium 1 tab-cap PO DAILY PRN Constipation 01/03/23 01/03/23 History 50 mg tablet (Senokot-S) sodium chloride 0.9 % 100 ml IV DIRECTED 01/03/23 01/03/23 History sodium chloride 3.5 % for 4 ml inhalation BID 01/03/23 01/03/23 History nebulization (Hyper-Ck) Patient History Medical History Chronic respiratory failure Encounter for pre-operative examination Prostate cancer Around 2013- s/p brachytherapy - Lupron q 3 months Pulmonary disease restrictive lung disease, hypoxic respiratory failure, hypercapnic respiratory failure , bronchiectasis, 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, 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 per records Aortic stenosis Mild per 2021 ECHO Diastolic heart failure Compensated per cardio records Hx of pyoderma gangrenosum BLE On anticoagulant therapy eliquis Chronic kidney disease (CKD), stage III (moderate) Restless leg syndrome Anxiety and depression A-fib follows w/ [facility] cardio, [place] on Eliquis Pacemaker medtronic, last checked 05/13/22, remotely Hypothyroidism Hyperlipidemia HTN (hypertension) Sleep apnea bipap; 3 lpm hs Asthmatic bronchitis Breathing stable - chronic (hx of smoker) Tachy-bipin syndrome s/p pacemaker placement 2017 Surgical History Status post left hip replacement History of surgery Rectal fissure repair S/P placement of cardiac pacemaker Hx of colonoscopy Hx of tonsillectomy Hx of total hip arthroplasty RIGHT Family History Other No family history of adverse response to anesthesia Social History Smoking Status: Former smoker Tobacco Type: Cigarettes Second Hand Exposure: No; Do You Dip or Chew Tobacco: No; Hx Alcohol Use: No Hx Substance Use: No Preferred Language: Kosovan Communication Ability: Effective Mri Specialist Required: No Beliefs That Will Affect Care: None Current Living Situation: Spouse Feels Safe at Home: Yes Assistive Devices: Cane, Oxygen - Continuous and Walker Review of Systems Review of Systems: All systems reviewed & are unremarkable except as noted in Subjective Physical Exam Constitutional: well nourished and + obese Respiratory: no retractions Auscultation: + diminished lung sounds (Bilateral), + crackles (Bilateral) and + wheezes (Mild expiratory) Cardiovascular: Rate/Rhythm: + tachycardic and + irregularly irregular Heart Sounds: normal S1 and normal S2 Vessels: radial pulses present; no JVD and no carotid bruit Extremities: no edema Gastrointestinal (Abdomen): Inspection/Auscultation: abdomen normal to inspection; abdomen not distended Percussion/Palpation: abdomen soft; abdomen nontender, no guarding and abdomen not rigid Neurologic: CN's II-XI intact bilaterally and moves all extremities; no focal motor deficits Results & Data Vital Signs (Past 12 Hours) Vital Signs Temp Pulse Pulse Resp BP BP Pulse Ox 01/03/23 08:30 134/109 H 01/03/23 08:20 135 H 01/03/23 08:02 126/68 01/03/23 08:01 126 H 26 H 01/03/23 08:00 138 H 32 H 01/03/23 07:50 127 H 23 01/03/23 07:40 129 H 25 H 01/03/23 07:31 125 H 21 01/03/23 07:31 117/86 01/03/23 07:30 134 H 30 H 01/03/23 07:20 138 H 16 99 01/03/23 07:10 126 H 21 99 01/03/23 07:04 121 H 01/03/23 07:00 123 H 14 99 01/03/23 06:47 117 H 21 97 01/03/23 05:40 136 H 112/80 01/03/23 05:00 118 H 20 112/74 94 01/03/23 03:45 132 H 01/03/23 03:20 110 H 17 93 01/03/23 03:00 120 H 20 131/108 H 95 01/03/23 01:30 126/79 01/03/23 01:30 108 H 23 96 01/03/23 01:00 109 H 22 127/79 90 01/02/23 23:50 110 H 01/02/23 23:40 01/02/23 23:40 36.3 C L 108 H 24 108/76 92 01/02/23 23:34 92 01/02/23 23:23 22 92 01/02/23 23:19 112 H 22 92 O2 Del Method O2 Flow Rate FiO2 01/03/23 08:30 01/03/23 08:20 01/03/23 08:02 01/03/23 08:01 01/03/23 08:00 01/03/23 07:50 01/03/23 07:40 01/03/23 07:31 01/03/23 07:31 01/03/23 07:30 01/03/23 07:20 01/03/23 07:10 01/03/23 07:04 01/03/23 07:00 01/03/23 06:47 70 01/03/23 05:40 01/03/23 05:00 BiPAP 01/03/23 03:45 01/03/23 03:20 70 01/03/23 03:00 BiPAP 01/03/23 01:30 01/03/23 01:30 01/03/23 01:00 BiPAP 01/02/23 23:50 01/02/23 23:40 BiPAP 01/02/23 23:40 BiPAP 01/02/23 23:34 BiPAP, Non-rebreather 15 01/02/23 23:23 BiPAP 60 01/02/23 23:19 60 Laboratory Results Cardiac Enzymes 01/02/23 01/03/23 Range/Units 23:36 06:49 AST 15 (13-39) U/L Troponin I High Sens 4.0 4.2 (0-20) pg/ml B-Natriuretic Peptide 252 H (0-100) pg/ml Coagulation 01/02/23 Range/Units 23:36 PT 12.3 H (9.0-12.0) Seconds APTT 31.2 H (21.0-31.0) Seconds B-Natriuretic Peptide 252 H (0-100) pg/ml CBC 01/02/23 01/03/23 Range/Units 23:36 06:49 WBC 7.39 8.53 (4.8-10.8) K/ul RBC 3.94 L 3.96 L (4.70-6.10) M/uL Hgb 11.4 L 11.5 L (14.0-18.0) g/dl Hct 37.6 L 37.0 L (42.0-52.0) % Plt Count 197 191 (130-400) K/uL Neut # (Auto) 5.03 6.88 H (1.40-6.50) K/uL Lymph # (Auto) 1.33 0.80 L (1.20-3.40) K/uL [place] # (Auto) 0.80 H 0.73 H (0.11-0.59) K/uL Eos # (Auto) 0.16 0.06 (0.00-0.50) K/uL Baso # (Auto) 0.04 0.03 (0.00-0.20) K/uL Comprehensive Metabolic Panel 01/02/23 01/03/23 Range/Units 23:36 06:49 Sodium 140 142 (136-145) mmol/L Potassium 4.8 4.5 (3.5-5.1) mmol/L Chloride 97 L 97 L (98-107) mmol/L Carbon Dioxide 38 H 38 H (21-32) mmol/L BUN 30 H 28 H (6-23) mg/dl Creatinine 1.50 H 1.49 H (0.6-1.4) mg/dl Glucose 108 H 108 H (70-99(Fasting)) mg/dl Calcium 9.7 9.6 (8.6-10.3) mg/dl Direct Bilirubin 0.2 (0-0.2) mg/dl AST 15 (13-39) U/L ALT 10 (7-52) U/L Alkaline Phosphatase 89 (34-104) U/L Total Protein 6.7 (6.0-8.3) gm/dl Albumin 3.7 (3.4-5.0) gm/dl Intake and Output 01/02/23 01/03/23 01/03/23 22:59 06:59 14:59 Intake Total 100 / 100 Balance 100 / 100 Intake: IV 100 / 100 Piperacillin/Tazobactam 4.5 gm 100 / 100 In 100 ml @ 200 mls/hr IV NOW ONE Rx#:[id number] Other: Weight 100.8 kg Weight Measurement Method Built in [facility] Patient Weight 01/04/23 06:59 Weight 100.8 kg (3) Aspiration into airway Encounter type: initial encounter Qualified Code(s): T17.908A - Unspecified foreign body in respiratory tract, part unspecified causing other injury, initial encounter (5) Chronic kidney disease (CKD), stage III (moderate) Chronic kidney disease stage 3 subtype: stage 3b (GFR 30-44) Qualified Code(s): N18.32 - Chronic kidney disease, stage 3b
--- NOTE | 2023-01-03 10:01 | XRay Report ---
XR chest 1V portable CLINICAL HISTORY: Sepsis TECHNIQUE: Single frontal radiograph of the chest was obtained. Comparison: Comparison is made to chest radiograph 12/13/2022 FINDINGS: No lines and tubes are seen. Calcified aortic knob is seen. Lungs are underinflated. Airspace opaciti es are seen in the left lower lobe. No evidence of pleural effusion or pneumothorax. IMPRESSION: Left lower lobe airspace opacities likely represent atelectasis with or without superimposed aspirati on/pneumonia. ACT 112: Negative or not required by law. Electronically signed by: Beka Merlos M.D. 01/03/2023 9:59 AM
[2023-01-03] MEDS: SODIUM CHLOR 7% 4 ML NEB INH SCH ×2 (10:04→22:34)
[2023-01-03] MEDS: CYCLOBENZAPRINE HCL 5 MG TAB PO SCH ×2 (10:18→13:32)
[2023-01-03] MEDS: PREGABALIN 100 MG CAP PO SCH ×2 (10:19→13:32)
--- NOTE | 2023-01-03 11:18 | Gastrointestinal Consultation ---
Date of Consultation January 03, 2023 Assessment & Plan (1) Dysphagia: Not sure how much help we can give with his dysphagia if dilatation only helped for a couple of days. He will need to be off eliquis for dilatation and stable from other medical standpoints. I will turn him over to [facility] on Wednesday and they will make the decision on timing of dilatation if they decide to proceed with it. History of Present Illness Reason for Consultation: dysphagia Attending Physician: Maryam Askew MD History of Present Illness 82 year old man admitted with aspiration. Has history of dysphagia. EGD and dil done 12/15--he says it helped for a few days. Then started having trouble again. Currently on eliquis for cardiac issues. Allergies Allergy/AdvReac Type Severity Reaction Status Date / Time oxycodone Allergy Unknown Flushing Verified 01/03/23 02:35 propoxyphene Allergy Unknown Flushing Verified 01/03/23 02:35 niacin AdvReac Unknown flushed Verified 01/03/23 02:35 feeling Home Medications Medication Instructions Recorded Confirmed Type albuterol sulfate 90 mcg/actuation 2 puff inhalation Q4 PRN Shortness 08/03/22 01/03/23 History aerosol inhaler Of Breath Or Wheezing apixaban 2.5 mg tablet (Eliquis) 2.5 mg PO BID 08/03/22 01/03/23 History aspirin 81 mg capsule 81 mg PO QAM 08/03/22 01/03/23 History atorvastatin 20 mg tablet (Lipitor) 20 mg PO HS 08/03/22 01/03/23 History calcium carbonate 600 mg-vitamin 1 tab PO QAM 08/03/22 01/03/23 History D3 10 mcg (400 unit) tablet (Calcium 600 + D(3)) cyclosporine 0.05 % eye drops in a 1 drp ophthalmic (eye) Q12H PRN 08/03/22 01/03/23 History dropperette (Restasis) Dry Eye(S) diltiazem HCl 180 mg 180 mg PO QAM 08/03/22 01/03/23 History capsule,extended release 24 hr guaifenesin 600 mg tablet, 600 mg PO BID 08/03/22 01/03/23 History extended release 12 hr (Mucinex) levothyroxine 75 mcg tablet 75 mcg PO QAM 08/03/22 01/03/23 History metoprolol tartrate 25 mg tablet 25 mg PO BID 08/03/22 01/03/23 History olanzapine 5 mg tablet (Zyprexa) 5 mg PO HS 08/03/22 01/03/23 History ropinirole 1 mg tablet 1 mg PO HS 08/03/22 01/03/23 History tamsulosin 0.4 mg capsule 0.4 mg PO QAM 08/03/22 01/03/23 History cyclobenzaprine 5 mg tablet 5 mg PO TID 30 days #90 tabs 12/18/22 01/03/23 Rx Naloxone 4mg/0.1ml 0 mg intranasal DIRECTED PRN 01/03/23 01/03/23 History .opiod od acetaminophen 500 mg tablet 1,000 mg PO Q8 PRN pain 01/03/23 01/03/23 History (Tylenol Extra Strength) docusate sodium 100 mg capsule 100 mg PO BID 01/03/23 01/03/23 History escitalopram oxalate 10 mg tablet 20 mg PO DAILY 01/03/23 01/03/23 History fluticasone furoate 100 1 inh inhalation DAILY 01/03/23 01/03/23 History mcg-vilanterol 25 mcg/dose inhalation powder (Breo Ellipta) hydrocodone 5 mg-acetaminophen 325 1 tab PO Q6H PRN .Pain 4-10 01/03/23 01/03/23 History mg tablet magnesium oxide 400 mg PO DAILY 01/03/23 01/03/23 History mirtazapine 15 mg tablet 30 mg PO HS 01/03/23 01/03/23 History ondansetron HCl 4 mg tablet 4 mg PO Q4 PRN Nausea 01/03/23 01/03/23 History pantoprazole 40 mg tablet,delayed 40 mg PO BID 01/03/23 01/03/23 History release (Protonix) polyethylene glycol 3350 17 gram 17 g PO DAILY PRN Constipation 01/03/23 01/03/23 History oral powder packet (Miralax) potassium chloride 20 mEq 20 meq PO DAILY 01/03/23 01/03/23 History tablet,extended release pregabalin 100 mg capsule (Lyrica) 100 mg PO TID 01/03/23 01/03/23 History sennosides 8.6 mg-docusate sodium 1 tab-cap PO DAILY PRN Constipation 01/03/23 01/03/23 History 50 mg tablet (Senokot-S) sodium chloride 0.9 % 100 ml IV DIRECTED 01/03/23 01/03/23 History sodium chloride 3.5 % for 4 ml inhalation BID 01/03/23 01/03/23 History nebulization (Hyper-Ck) Patient History Medical History Chronic respiratory failure Encounter for pre-operative examination Prostate cancer Around 2013- s/p brachytherapy - Lupron q 3 months Pulmonary disease restrictive lung disease, hypoxic respiratory failure, hypercapnic respiratory failure , bronchiectasis, 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, 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 per records Aortic stenosis Mild per 2021 ECHO Diastolic heart failure Compensated per cardio records Hx of pyoderma gangrenosum BLE On anticoagulant therapy eliquis Chronic kidney disease (CKD), stage III (moderate) Restless leg syndrome Anxiety and depression A-fib follows w/ [facility] cardio, [place] [facility] on Eliquis Pacemaker medtronic, last checked 05/13/22, remotely Hypothyroidism Hyperlipidemia HTN (hypertension) Sleep apnea bipap; 3 lpm hs Asthmatic bronchitis Breathing stable - chronic (hx of smoker) Tachy-noni syndrome s/p pacemaker placement 2017 Surgical History Status post left hip replacement History of surgery Rectal fissure repair S/P placement of cardiac pacemaker Hx of colonoscopy Hx of tonsillectomy Hx of total hip arthroplasty RIGHT Family History Other No family history of adverse response to anesthesia Social History Smoking Status: Former smoker Tobacco Type: Cigarettes Second Hand Exposure: No; Do You Dip or Chew Tobacco: No; Hx Alcohol Use: No Hx Substance Use: No Preferred Language: Congolese Communication Ability: Effective Electronic Scale Tester Required: No Beliefs That Will Affect Care: None Current Living Situation: Spouse Feels Safe at Home: Yes Assistive Devices: Cane, Oxygen - Continuous and Walker Review of Systems Review of Systems: All systems reviewed & are unremarkable except as noted in HPI & below Physical Exam Constitutional: + ill appearing Neck: trachea midline, no thyromegaly Respiratory: normal respiratory effort, lungs clear to auscultation Cardiovascular: RRR, no murmur, no edema Gastrointestinal (Abdomen): normal bowel sounds, soft, nontender, no hepatosplenomegaly Results & Data Vital Signs (Past 12 Hours) Vital Signs Temp Pulse Pulse Resp BP BP Pulse Ox 01/03/23 10:42 128 H 121/80 01/03/23 10:31 118 H 126/69 01/03/23 10:20 129 H 126/69 01/03/23 10:20 135 H 119/74 01/03/23 10:06 135 H 119/74 01/03/23 09:51 160 H 28 H 97 01/03/23 08:30 134/109 H 01/03/23 08:20 135 H 01/03/23 08:02 126/68 01/03/23 08:01 126 H 26 H 01/03/23 08:00 138 H 32 H 01/03/23 07:50 127 H 23 01/03/23 07:40 129 H 25 H 01/03/23 07:31 125 H 21 01/03/23 07:31 117/86 01/03/23 07:30 134 H 30 H 01/03/23 07:20 138 H 16 99 01/03/23 07:10 126 H 21 99 01/03/23 07:04 121 H 01/03/23 07:00 123 H 14 99 01/03/23 06:47 117 H 21 97 01/03/23 05:40 136 H 112/80 01/03/23 05:00 118 H 20 112/74 94 01/03/23 03:45 132 H 01/03/23 03:20 110 H 17 93 01/03/23 03:00 120 H 20 131/108 H 95 01/03/23 01:30 126/79 01/03/23 01:30 108 H 23 96 01/03/23 01:00 109 H 22 127/79 90 01/02/23 23:50 110 H 01/02/23 23:40 01/02/23 23:40 36.3 C L 108 H 24 108/76 92 01/02/23 23:34 92 01/02/23 23:23 22 92 01/02/23 23:19 112 H 22 92 O2 Del Method O2 Flow Rate FiO2 01/03/23 10:42 01/03/23 10:31 01/03/23 10:20 01/03/23 10:20 01/03/23 10:06 01/03/23 09:51 70 01/03/23 08:30 01/03/23 08:20 01/03/23 08:02 01/03/23 08:01 01/03/23 08:00 01/03/23 07:50 01/03/23 07:40 01/03/23 07:31 01/03/23 07:31 01/03/23 07:30 01/03/23 07:20 01/03/23 07:10 01/03/23 07:04 01/03/23 07:00 01/03/23 06:47 70 01/03/23 05:40 01/03/23 05:00 BiPAP 01/03/23 03:45 01/03/23 03:20 70 01/03/23 03:00 BiPAP 01/03/23 01:30 01/03/23 01:30 01/03/23 01:00 BiPAP 01/02/23 23:50 01/02/23 23:40 BiPAP 01/02/23 23:40 BiPAP 01/02/23 23:34 BiPAP, Non-rebreather 15 01/02/23 23:23 BiPAP 60 01/02/23 23:19 60 Laboratory Results 01/03/23 01/02/23 01/02/23 Range/Units 06:49 23:46 23:36 WBC 8.53 7.39 (4.8-10.8) K/ul RBC 3.96 L 3.94 L (4.70-6.10) M/uL Hgb 11.5 L 11.4 L (14.0-18.0) g/dl Hct 37.0 L 37.6 L (42.0-52.0) % MCV 93.4 95.4 (80.0-100.0) fL MCH 29.0 28.9 (25.0-34.0) pg MCHC 31.1 L 30.3 L (32.0-36.0) g/dL RDW Std Deviation 53.6 H 54.8 H (36.4-46.3) fL RDW Coeff of Reuben 15.5 H 15.6 H (11.5-14.5) % Plt Count 191 197 (130-400) K/uL MPV 11.1 11.2 (9.4-12.4) fL Immature Gran % (Auto) 0.4 0.4 % Neut % (Auto) 80.5 68.1 % Lymph % (Auto) 9.4 18.0 % [place] % (Auto) 8.6 10.8 % Eos % (Auto) 0.7 2.2 % Baso % (Auto) 0.4 0.5 % Neut # (Auto) 6.88 H 5.03 (1.40-6.50) K/uL Lymph # (Auto) 0.80 L 1.33 (1.20-3.40) K/uL [place] # (Auto) 0.73 H 0.80 H (0.11-0.59) K/uL Eos # (Auto) 0.06 0.16 (0.00-0.50) K/uL Baso # (Auto) 0.03 0.04 (0.00-0.20) K/uL Immature Gran # (Auto) 0.03 0.03 (0.01-0.20) K/uL PT 12.3 H (9.0-12.0) Seconds INR 1.1 (0.9-1.1) APTT 31.2 H (21.0-31.0) Seconds PTT Ratio 1.1 VBG pH 7.38 (7.36-7.41) VBG pCO2 69 H (38-50) mmHg VBG pO2 41 mmHg VBG HCO3 41 mmol/L VBG O2 Saturation 63.1 % VBG Base Excess 12.5 mEq/L Sodium 142 140 (136-145) mmol/L Potassium 4.5 4.8 (3.5-5.1) mmol/L Chloride 97 L 97 L (98-107) mmol/L Carbon Dioxide 38 H 38 H (21-32) mmol/L Anion Gap 7 5 (3-11) BUN 28 H 30 H (6-23) mg/dl Creatinine 1.49 H 1.50 H (0.6-1.4) mg/dl Est Cr Clr Drug Dosing Not Reportable Not Reportable Est GFR ( Amer) 49.9 49.5 ml/min Est GFR (Non-Af Amer) 43.1 42.7 ml/min BUN/Creatinine Ratio 18.8 20.0 (10-20) Glucose 108 H 108 H (70-99(Fasting)) mg/dl Lactate 1.1 (0.4-2.0) mmol/L Calcium 9.6 9.7 (8.6-10.3) mg/dl Magnesium 1.9 2.1 (1.7-2.4) mg/dl Total Bilirubin 0.7 (0.2-1.0) mg/dl Direct Bilirubin 0.2 (0-0.2) mg/dl AST 15 (13-39) U/L ALT 10 (7-52) U/L Alkaline Phosphatase 89 (34-104) U/L Total Creatine Kinase 27 L (30-223) U/L Troponin I High Sens 4.2 4.0 (0-20) pg/ml B-Natriuretic Peptide 252 H (0-100) pg/ml Total Protein 6.7 (6.0-8.3) gm/dl Albumin 3.7 (3.4-5.0) gm/dl Procalcitonin < 0.05 (0-0.5) ng/ml TSH 3.639 (0.300-4.500) uIu/ml Adenovirus (PCR) Not Detected (NotDetected) B. pertussis DNA (PCR) Not Detected (NotDetected) B.parapertussis DNA PCR Not Detected (NotDetected) C. pneumoniae DNA (PCR) Not Detected (NotDetected) Coronavirus OC43 (PCR) Not Detected (NotDetected) Coronavirus HKU1 (PCR) Not Detected (NotDetected) Coronavirus 229E (PCR) Not Detected (NotDetected) SARS-CoV-2 (PCR) Not Detected (NotDetected) Coronavirus NL63 (PCR) Not Detected (NotDetected) Human Metapneumovir PCR Not Detected (NotDetected) Influenza Type A (PCR) Not Detected (NotDetected) Influenza Type B (PCR) Not Detected (NotDetected) M. pneumoniae (PCR) Not Detected (NotDetected) Parainfluenza 1 (PCR) Not Detected (NotDetected) Parainfluenza 2 (PCR) Not Detected (NotDetected) Parainfluenza 3 (PCR) Not Detected (NotDetected) Parainfluenza 4 (PCR) Not Detected (NotDetected) RSV (PCR) Not Detected (NotDetected) Entero/Rhino (PCR) Not Detected (NotDetected) Diagnostic Findings Chest X-Ray 01/02/23 23:16 XR chest 1V portable CLINICAL HISTORY: Sepsis TECHNIQUE: Single frontal radiograph of the chest was obtained. Comparison: Comparison is made to chest radiograph 12/13/2022 FINDINGS: No lines and tubes are seen. Calcified aortic knob is seen. Lungs are underinflated. Airspace opacities are seen in the left lower lobe. No evidence of pleural effusion or pneumothorax. IMPRESSION: Left lower lobe airspace opacities likely represent atelectasis with or without superimposed aspiration/pneumonia. ACT 112: Negative or not required by law. Electronically signed by: Beka Merlos M.D. 01/03/2023 9:[address] 01/03/23 03:57 Exam(s): CT HEAD Without Contrast EXAM: CT Head Without Intravenous Contrast CLINICAL HISTORY: Reason for exam: AMS. TECHNIQUE: Axial computed tomography images of the head/brain without intravenous contrast. CTDI is 36.79 mGy and DLP is 625.8 mGy-cm. Automated exposure control was utilized for the study. A dose lowering technique was utilized adhering to the principles of ALARA. COMPARISON: CT head performed 11/30/22 FINDINGS: There is no acute intracranial hemorrhage or major vascular territory infarct. No mass effect or midline shift seen. There is prominence of the ventricles and sulci consistent with generalized parenchymal volume loss. Scattered hypodensities throughout the periventricular and subcortical white matter are noted, likely sequela of chronic microvascular changes. The calvarium is intact. Bilateral lens replacements noted. The visualized paranasal sinuses and mastoid air cells are clear. IMPRESSION: No acute intracranial pathology. Generalized parenchymal volume loss and sequela of chronic microvascular ischemic angiopathy. Electronically signed by: Elmer Woodruff M.D. 01/03/23 06:22 AM
[2023-01-03] MEDS: METOPROLOL TARTRATE 1 MG/ML VIAL IV SCH ×3 (13:06→23:40)
[2023-01-03 13:31] LABS: Appearance Urine Cloudy (Clear); Bilirubin Urine Negative (Negative); Blood Urine 3+ (Negative); Color Urine Yellow; Epithelial Cell Urine Auto 0-5 /lpf (0-5); Glucose Urine UA Negative (Negative); Ketones Urine Trace (Negative); Leukocyte Esterase Urine Negative (Negative); Nitrite Urine Negative (Negative); Protein Urine Trace (Negative); Specific Gravity Urine 1.023 (1.000-1.030); Urobilinogen Urine Negative (Negative)
[2023-01-03 14:08] LABS: Bacteria Urine Automated 2+ (Negative); RBC Urine Automated >30 /hpf (0-4)
[2023-01-03 14:10] LABS: Calcium Oxalate Crystals Urine Present (None Prsent)
[2023-01-03] MEDS ORDERED: DIGOXIN 250 MCG in SYRINGE 9 ML IV ONE ×2 (15:00→21:00)
[2023-01-03] MEDS ORDERED: OLANZapine 10 MG/2.1 ML SDV IM PRN (16:14)
--- NOTE | 2023-01-03 16:15 | Communication Note ---
Date of Service: January 03, 2023 Mr. May is an 82-year-old male with past medical significant for gout, hyperlipidemia, hypothyroidism, restrictive lung disease, bronchiectasis without complication, chronic respiratory failure with hypoxia and hypercapnia, obstructive sleep apnea on BiPAP, mild persistent asthma, interstitial pulmonary disease, persistent atrial fibrillation, tachybradycardia syndrome, s/p pacemaker, chronic diastolic CHF, CKD stage III, hypertension, history of CAD, history of BPH, depression, history of prostate cancer, generalized anxiety disorder, PTSD, schizophrenia, who is admitted due to acute on chronic respiratory failure with concerns of aspiration. Upon exam today in ED, patient was in A Fib RVR after an attempt to take medications was made, in which patient aspirated, became agitated, and desaturated notably. Saturations improved to 90s on BiPAP and patient was alert and following commands. However, blood pressures hypotensive iso HRs in 140s-160s. A trial of metoprolol was made with some modest improvement in rates and increased blood pressure. ECHO with LA compression, CT chest order pending. Will follow #Metabolic encephalopathy, likely secondary to aspiration/hypoxic -As below -Delirium precautions -IM Zyprexa 5mg hs until plan for PO regimen is coordinated #Acute on chronic respiratory failure, multifactorial #Aspiration Pneumonitis #RUDY #History of ILD On on 3 to 4 L oxygen Received IV Lasix and and Zosyn in the ER -Continue Zosyn -Follow up CT scan -BiPAP for now #Acute on chronic heart failure with preserved EF s/p IV lasix -Cardiology on consult -IV lasix 40mg BID Monitor on telemetry Will follow echo, LA with compressive mass--esophageal compression? I's and O's #Atrial fibrillation with RVR #Tachybradycardia syndrome s/p pacemaker --Holding home metoprolol/dilt iso aspiration/dysphagia s/p IV digoxin per cards -5mg metoprolol 5mg q4h #Aspiration #Dysphagis #Ongoing difficulty swallowing for last few days as per family History of esophageal dilatation 12/15 Strict NPO Consult GI: reassess wednesday IV as able #History of restrictive lung disease #History of chronic respiratory failure #History of mild persistent asthma #History of interstitial pulmonary disease Continue home inhalers Nebs as needed #History of CAD On aspirin statin and beta-dilip, resume when able #History of BPH on Flomax resume when able #Generalized anxiety disorder #Depression #Schizophrenia #PTSD on Lexapro, Remeron, Zyprexa IM zyprexa is needed , can do buccal once stable per Psych curbside #Restless leg syndrome On ropinirole resume when able #Hyperlipidemia On statin resume when able #Hypothyroidism On Synthyroid- IV in am #Ambulatory dysfunction Currently not walking since his back surgery PT OT when stable #Abnormal CT of the abdomen Last admission Cystic pancreatic lesions Needs follow-up #History of prostate cancer Seems follows with heme-onc DVT prophylaxis plan for heparin Disposition Telemetry floor CODE STATUS Full code if there is chance of recovery as per discussion with the family
--- NOTE | 2023-01-03 16:50 | CT Scan Report ---
CT chest diagnostic wo con CLINICAL HISTORY: echodensity compressing posterior LA on echo TECHNIQUE: Multidetector row helical CT of the chest was performed. Coronal and sagittal reformations were obtained. Automated dose lowering techniques and/or adjustment according to patient size were u tilized for this exam. CT DOSE: 1090.94 mGy.cm Comparison: Comparison is made to CT chest 12/12/2022 FINDINGS: Lungs and pleura: Multifocal consolidations are seen predominantly in the lower lungs. Some densities are also seen in the bilateral upper lobes. Heart and pericardium: A prominent and thick walled esophagus results in mass effect upon the left at rium. Vessels: Moderate atherosclerotic changes in the aorta and coronary arteries. Mediastinum and jemal: Unremarkable. Chest wall and lower neck: Unremarkable. Abdomen: Unremarkable. Bones: Degenerative changes in the thoracic spine. Posterior fixation hardware is in the lower thorac ic and upper lumbar spine. IMPRESSION: 1. The esophagus is markedly dilated with heterogeneous, gas containing material and suggestion of a thickened esophageal wall, resulting in mass effect on the left atrium. Findings place patient at el evated aspiration risk. This may represent achalasia with or without superimposed esophagitis. 2. Multifocal airspace opacities are compatible with aspiration and/or pneumonia. ACT 112: Negative or not required by law. Electronically signed by: Beka Merlos M.D. 01/03/2023 4:47 PM
[2023-01-03 16:55] LABS: HCO3 VBG 42 mmol/L; Oxygen Saturation VBG 76.6 %; PCO2 VBG 66 mmHg (38-50); PO2 VBG 48 mmHg; pH VBG 7.41 (7.36-7.41)
[2023-01-03] MEDS ORDERED: ACETAMINOPHEN 1,000 MG/100 ML VIAL IV PRN (16:57)
[2023-01-03] MEDS ORDERED: ACETAMINOPHEN 1,000 MG/100 ML VIAL IV STA (16:57)
[2023-01-03] MEDS ORDERED: HEPARIN 25000 UNIT/500 ML D5W IV ONE (18:10)
[2023-01-03] MEDS: HEPARIN SODIUM/DEXTROSE 25,000 UNITS/500 ML BAG IV SCH (18:11)
[2023-01-03] MEDS: Heparin IV Adult Wt-Based Low-Dose *NO* INITIAL Bolus Protocol IV SCH (18:11)
[2023-01-03] MEDS ORDERED: RAPID SEQUENCE INDUCTION BAG ONE (18:45)
[2023-01-03] MEDS ORDERED: ETOMIDATE 2 MG/ML 20 ML VIAL IV ONE (18:45)
[2023-01-03] MEDS ORDERED: PROPOFOL BOLUS FROM BAG IV PRN (19:19)
[2023-01-03] MEDS ORDERED: STAT IV Infusion **Titration per Protocol STA ×2 (19:19→19:27)
[2023-01-03] MEDS ORDERED: fentaNYL BOLUS from BAG IV PRN (19:19)
[2023-01-03] MEDS: propofoL 1,000 MG/100 ML VIAL IV SCH (19:20)
[2023-01-03] MEDS: NOREPINEPHRINE/D5W 4 MG/250 ML PLCT IV SCH (19:20)
[2023-01-03] MEDS ORDERED: PROPOFOL IV EMULSION 10 MG/ML 100 ML VIAL IV ONE (19:20)
[2023-01-03] MEDS ORDERED: fentaNYL citrate 2,500 MCG/250 ML BAG IV ONE (19:20)
[2023-01-03] MEDS ORDERED: NOREPINEPHRINE/D5W 4 MG/250 ML IV ONE (19:26)
--- NOTE | 2023-01-03 19:27 | Anesthesia Procedure Note ---
Anesthesia Procedure Note Intubation Note Vital Signs: BP 106/65;SPO2 100% on BiPap;RR 22;HR 123; EKG-AFIB w/ RVR @ 1915 Date of procedure: 01/03/23 Indication for intubation: Failure to ventilate, Failure to oxygenate, Respiratory distress, Unable to protect airway and Other (Achalasia w/ recent aspiration) Consent: Risk / Benefits Reviewed With: PT / POA / Parent / Guardian, Accepts Plan, Informed Consent Obtained and Emergency Monitors attached: Blood Pressure, CO2, EKG and Pulse Oximetry Time out completed: Yes Premedication: Fentanyl (mcg) (100) and Etomidate (mg) (12 mg) Paralytic medication: Succinylcholine (mg) (160 mg) Intubation technique: Adequate preoxygenation and RSI Equipment: Glidescope (#4 ) Endotracheal tube: Oral, 8.0, with Stylet, Tube secured @ cm (23) and Balloon inflated (10 cc) Attempts: 1 and Atraumatic Tube placement confirmation: auscultation and Positive CO2 detection Procedure Summary: Pt preoxygenated, GETA induction,using Glidescope #4 , VC's visualized,no fluid or particulate matter around glottic opening;atraumatic intubation w/ 8.0 ETT; + ETCO2 on easy capnometer; B/L BS;ETT taped at 23 cm jayden; CXR ordered per ICU team and pt placed on mechanical ventilator per ICU protocol. Post-procedure: Pt hemodynamically stable (critical ,but stable), Pt tolerates well, No complication and Post placement CXR ordered
[2023-01-03] MEDS ORDERED: fentaNYL citrate 2,500 MCG/250 ML BAG IV SCH (19:30)
--- NOTE | 2023-01-03 20:06 | Critical Care Consultation ---
Date of Consultation January 03, 2023 History of Present Illness Attending Physician: Maryam Askew MD Allergies Allergy/AdvReac Type Severity Reaction Status Date / Time oxycodone Allergy Unknown Flushing Verified 01/03/23 02:35 propoxyphene Allergy Unknown Flushing Verified 01/03/23 02:35 niacin AdvReac Unknown flushed Verified 01/03/23 02:35 feeling Home Medications Medication Instructions Recorded Confirmed Type albuterol sulfate 90 mcg/actuation 2 puff inhalation Q4 PRN Shortness 08/03/22 01/03/23 History aerosol inhaler Of Breath Or Wheezing apixaban 2.5 mg tablet (Eliquis) 2.5 mg PO BID 08/03/22 01/03/23 History aspirin 81 mg capsule 81 mg PO QAM 08/03/22 01/03/23 History atorvastatin 20 mg tablet (Lipitor) 20 mg PO HS 08/03/22 01/03/23 History calcium carbonate 600 mg-vitamin 1 tab PO QAM 08/03/22 01/03/23 History D3 10 mcg (400 unit) tablet (Calcium 600 + D(3)) cyclosporine 0.05 % eye drops in a 1 drp ophthalmic (eye) Q12H PRN 08/03/22 01/03/23 History dropperette (Restasis) Dry Eye(S) diltiazem HCl 180 mg 180 mg PO QAM 08/03/22 01/03/23 History capsule,extended release 24 hr guaifenesin 600 mg tablet, 600 mg PO BID 08/03/22 01/03/23 History extended release 12 hr (Mucinex) levothyroxine 75 mcg tablet 75 mcg PO QAM 08/03/22 01/03/23 History metoprolol tartrate 25 mg tablet 25 mg PO BID 08/03/22 01/03/23 History olanzapine 5 mg tablet (Zyprexa) 5 mg PO HS 08/03/22 01/03/23 History ropinirole 1 mg tablet 1 mg PO HS 08/03/22 01/03/23 History tamsulosin 0.4 mg capsule 0.4 mg PO QAM 08/03/22 01/03/23 History cyclobenzaprine 5 mg tablet 5 mg PO TID 30 days #90 tabs 12/18/22 01/03/23 Rx Naloxone 4mg/0.1ml 0 mg intranasal DIRECTED PRN 01/03/23 01/03/23 History .opiod od acetaminophen 500 mg tablet 1,000 mg PO Q8 PRN pain 01/03/23 01/03/23 History (Tylenol Extra Strength) docusate sodium 100 mg capsule 100 mg PO BID 01/03/23 01/03/23 History escitalopram oxalate 10 mg tablet 20 mg PO DAILY 01/03/23 01/03/23 History fluticasone furoate 100 1 inh inhalation DAILY 01/03/23 01/03/23 History mcg-vilanterol 25 mcg/dose inhalation powder (Breo Ellipta) hydrocodone 5 mg-acetaminophen 325 1 tab PO Q6H PRN .Pain 4-10 01/03/23 01/03/23 History mg tablet magnesium oxide 400 mg PO DAILY 01/03/23 01/03/23 History mirtazapine 15 mg tablet 30 mg PO HS 01/03/23 01/03/23 History ondansetron HCl 4 mg tablet 4 mg PO Q4 PRN Nausea 01/03/23 01/03/23 History pantoprazole 40 mg tablet,delayed 40 mg PO BID 01/03/23 01/03/23 History release (Protonix) polyethylene glycol 3350 17 gram 17 g PO DAILY PRN Constipation 01/03/23 01/03/23 History oral powder packet (Miralax) potassium chloride 20 mEq 20 meq PO DAILY 01/03/23 01/03/23 History tablet,extended release pregabalin 100 mg capsule (Lyrica) 100 mg PO TID 01/03/23 01/03/23 History sennosides 8.6 mg-docusate sodium 1 tab-cap PO DAILY PRN Constipation 01/03/23 01/03/23 History 50 mg tablet (Senokot-S) sodium chloride 0.9 % 100 ml IV DIRECTED 01/03/23 01/03/23 History sodium chloride 3.5 % for 4 ml inhalation BID 01/03/23 01/03/23 History nebulization (Hyper-Ck) Patient History Medical History Chronic respiratory failure Encounter for pre-operative examination Prostate cancer Around 2013- s/p brachytherapy - Lupron q 3 months Pulmonary disease restrictive lung disease, hypoxic respiratory failure, hypercapnic respiratory failure , bronchiectasis, 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, 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 per records Aortic stenosis Mild per 2021 ECHO Diastolic heart failure Compensated per cardio records Hx of pyoderma gangrenosum BLE On anticoagulant therapy eliquis Chronic kidney disease (CKD), stage III (moderate) Restless leg syndrome Anxiety and depression A-fib follows w/ [facility] cardio, [place] on Eliquis Pacemaker medtronic, last checked 05/13/22, remotely Hypothyroidism Hyperlipidemia HTN (hypertension) Sleep apnea bipap; 3 lpm hs Asthmatic bronchitis Breathing stable - chronic (hx of smoker) Tachy-noni syndrome s/p pacemaker placement 2017 Surgical History Status post left hip replacement History of surgery Rectal fissure repair S/P placement of cardiac pacemaker Hx of colonoscopy Hx of tonsillectomy Hx of total hip arthroplasty RIGHT Family History Other No family history of adverse response to anesthesia Social History Smoking Status: Former smoker Tobacco Type: Cigarettes Second Hand Exposure: No; Do You Dip or Chew Tobacco: No; Hx Alcohol Use: No Hx Substance Use: No Preferred Language: Nepali Communication Ability: Effective Continuous 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 Operator Required: No Beliefs That Will Affect Care: None Current Living Situation: Spouse Feels Safe at Home: Yes Assistive Devices: Cane, Oxygen - Continuous and Walker Results & Data Results & Data Vital Signs (Past 12 Hours) Vital Signs Pulse Pulse Resp BP Pulse Ox O2 Del Method FiO2 01/03/23 19:24 65/48 L 01/03/23 19:24 109 H 17 100 01/03/23 19:22 93/58 L 01/03/23 19:22 112 H 2 L 97 01/03/23 19:20 111 H 21 100 01/03/23 19:20 103/67 01/03/23 19:18 98/67 L 01/03/23 19:18 123 H 21 100 01/03/23 19:16 122/75 01/03/23 19:16 105 H 23 100 01/03/23 19:13 117 H 25 H 100 01/03/23 19:13 106/75 01/03/23 19:10 110 H 01/03/23 18:50 117/87 01/03/23 18:50 122 H 18 87 L 01/03/23 18:40 111/84 01/03/23 18:40 122 H 19 98 01/03/23 18:30 119 H 25 H 89 L 01/03/23 18:30 120/83 01/03/23 18:22 118 H 24 78 L 01/03/23 18:22 106/85 01/03/23 18:20 111 H 19 87 L 01/03/23 18:10 121/86 01/03/23 18:10 109 H 28 H 94 01/03/23 18:07 118 H 123/81 01/03/23 18:00 123/81 01/03/23 18:00 103 H 24 99 01/03/23 17:53 108/66 01/03/23 17:53 114 H 21 95 01/03/23 17:50 134 H 20 98 01/03/23 17:40 26 H 97 01/03/23 17:30 102 H 22 98 01/03/23 17:30 110/76 01/03/23 17:20 133 H 20 98 01/03/23 17:20 98/80 L 01/03/23 17:17 118 H 112/82 01/03/23 17:11 112/82 01/03/23 17:10 130 H 20 95 01/03/23 17:01 113/77 01/03/23 17:01 125 H 23 97 01/03/23 17:00 127 H 27 H 97 01/03/23 16:51 123 H 24 96 01/03/23 16:51 75/63 L 01/03/23 16:50 126 H 21 96 01/03/23 16:45 95 BiPAP 01/03/23 16:40 122 H 29 H 96 01/03/23 16:40 100/72 01/03/23 16:30 102/74 01/03/23 16:30 124 H 25 H 98 01/03/23 16:20 116/84 01/03/23 16:20 118 H 22 94 01/03/23 16:15 115 H 19 96 01/03/23 16:15 115/71 01/03/23 16:14 121 H 96 01/03/23 15:46 119 H 01/03/23 15:30 120 H 31 H 81 L BiPAP 01/03/23 15:20 120/86 01/03/23 15:20 119 H 24 94 01/03/23 15:12 110/74 01/03/23 15:12 125 H 23 96 01/03/23 15:10 122 H 27 H 98 01/03/23 15:02 112 H 01/03/23 15:00 93/66 L 01/03/23 15:00 121 H 25 H 93 01/03/23 14:57 114 H 20 98 60 01/03/23 14:50 104/86 01/03/23 14:50 103 H 35 H 99 01/03/23 14:40 106/80 01/03/23 14:40 114 H 31 H 95 01/03/23 14:30 100/72 01/03/23 14:30 111 H 16 94 01/03/23 14:20 113 H 22 96 01/03/23 14:20 109/70 01/03/23 14:10 119 H 23 96 01/03/23 14:10 94/62 L 01/03/23 14:02 111/63 01/03/23 14:02 118 H 22 97 01/03/23 14:00 105 H 26 H 98 01/03/23 13:54 BiPAP 01/03/23 13:51 111 H 20 98 01/03/23 13:51 112/62 01/03/23 13:50 107 H 26 H 95 01/03/23 13:40 104/75 01/03/23 13:40 108 H 22 97 01/03/23 13:35 112/74 01/03/23 13:35 117 H 25 H 93 01/03/23 13:30 120 H 23 93 01/03/23 13:22 122 H 01/03/23 13:20 132 H 19 92 01/03/23 13:10 116 H 21 94 01/03/23 13:10 129/95 01/03/23 13:06 132 H 133/79 01/03/23 13:01 137 H 17 92 01/03/23 13:01 133/79 01/03/23 13:00 155 H 29 H 86 L 01/03/23 12:51 139 H 23 88 L 01/03/23 12:51 122/95 01/03/23 12:50 118 H 23 85 L 01/03/23 12:40 130/96 01/03/23 12:40 135 H 21 01/03/23 12:39 138 H 21 01/03/23 12:39 111/85 01/03/23 12:35 115/82 01/03/23 12:35 143 H 31 H 01/03/23 12:30 131 H 30 H 98 01/03/23 12:20 138 H 22 91 01/03/23 12:12 135 H 32 H 89 L 01/03/23 12:12 135/90 01/03/23 12:10 124 H 23 87 L 01/03/23 12:01 120 H 28 H 94 01/03/23 12:01 127/90 01/03/23 12:00 115 H 25 H 95 01/03/23 11:51 125 H 22 84 L 01/03/23 11:51 135/89 01/03/23 11:50 110 H 34 H 89 L 01/03/23 11:40 124 H 23 89 L 01/03/23 11:33 129 H 98 BiPAP 01/03/23 11:30 22 87 L 01/03/23 11:21 119/85 01/03/23 11:21 145 H 22 87 L 01/03/23 11:20 121 H 28 H 82 L 01/03/23 11:10 108/74 01/03/23 11:10 137 H 28 H 93 01/03/23 11:01 121/79 01/03/23 11:01 130 H 22 96 01/03/23 11:00 119 H 23 96 01/03/23 10:51 121/85 01/03/23 10:51 114 H 22 94 01/03/23 10:50 131 H 26 H 95 01/03/23 10:42 128 H 121/80 01/03/23 10:41 125 H 19 99 01/03/23 10:41 121/80 01/03/23 10:40 140 H 27 H 98 01/03/23 10:31 118 H 126/69 01/03/23 10:30 118 H 25 H 93 01/03/23 10:20 126/69 01/03/23 10:20 126 H 28 H 97 01/03/23 10:20 129 H 126/69 01/03/23 10:20 135 H 119/74 01/03/23 10:10 91/71 L 01/03/23 10:10 117 H 24 97 01/03/23 10:06 135 H 119/74 01/03/23 10:00 119/74 01/03/23 10:00 130 H 21 95 01/03/23 09:57 96/75 L 01/03/23 09:57 156 H 22 95 01/03/23 09:51 160 H 28 H 97 70 01/03/23 09:50 146 H 20 94 01/03/23 09:40 144 H 35 H 79 L 01/03/23 09:30 93/74 L 01/03/23 09:30 153 H 26 H 01/03/23 09:10 139 H 29 H 01/03/23 09:00 128/81 01/03/23 08:30 134/109 H 01/03/23 08:20 135 H Coding
[2023-01-03] MEDS ORDERED: Nursing to Pharmacy Communication SCH (20:15)
--- NOTE | 2023-01-03 20:30 | XRay Report ---
XR chest 1V portable CLINICAL HISTORY: post intubation eval ETT, OGT placement eval lung TECHNIQUE: Single frontal radiograph of the chest was obtained. Comparison: Comparison is made to chest radiograph 01/02/2023 FINDINGS: Endotracheal tube tip terminates 3.8 cm from the davina. The enteric tube tip and side-port lie above the diaphragm. Cardiomegaly is noted. The aortic arch is calcified. Lungs are underinflated but adilia r. No evidence of pleural effusion or pneumothorax. Posterior fixation hardware is seen in the thorac ic spine. IMPRESSION: Satisfactory appearance of endotracheal tube. Endotracheal tube tip and side-port lie above the diaph ragm and could be advanced approximately 16 cm for improved positioning. ACT 112: Negative or not required by law. Electronically signed by: Beka Merlos M.D. 01/03/2023 8:29 PM
[2023-01-03] MEDS ORDERED: OLANZapine 5 MG TABLET PO SCH (21:00)
[2023-01-03] MEDS ORDERED: rOPINIRole HCL 1 MG TABLET PO SCH (21:00)
[2023-01-03] MEDS ORDERED: MIRTAZAPINE TAB 15 MG TAB PO SCH (21:00)
[2023-01-03] MEDS ORDERED: ATORVASTATIN 20 MG TAB PO SCH (21:00)
--- NOTE | 2023-01-03 21:04 | Procedure Note ---
Procedure Note: Bronchoscopy Procedure Procedure: Fiberoptic bronchoscopy Therapeutic aspiration of secretions, initial/subsequent Provider: Randolph Avalos MD Consent: Procedure was emergent. He been intubated for respiratory failure and had opacification of the lower airways concerning for aspiration with hypoxemic respiratory failure. He was unable to provide verbal or written consent due to being on the ventilator. No family immediately available. Procedure: Patient was in the ICU sedated and intubated appropriate radiographic studies had been reviewed prior to the procedure. He was placed on 100% FiO2. The fiberoptic scope was advanced through the endotracheal tube via the Bodai adapter. The tube was sounded to found to be in good position. There were thick purulent mucoid secretions present in the trachea and emanating from the bilateral lower lobes. The trachea was cleared. Main daivna was not splayed. Lavage was conducted in the right lower lobe and specimens collected for microbiologic analysis. Secretions were kidd purulent and tenacious. Eventually after extensive lavage the right lower lobe was cleared. The scope was then advanced into the left mainstem bronchus. The left upper lobe and lingula did have some mucoid secretions but the most prominent secretions were present in the left lower lobe which were also lavaged clear earlier. Once the airways were cleared, complete inspection was conducted which demonstrated normal tracheobronchial tree anatomy with erythematous mucosa. No endobronchial lesions were identified. The bronchoscope was then removed from the airways. The patient tolerated the procedure well without obvious complication. Patient was returned to the recovery room. Impression: 1. Endotracheal tube in good position. 2. Extensive bilateral lower lobe mucopurulent secretions status post lavage. Await microbiologic analysis [facility] [place] Codes (Charges) Pulmonary/Thoracic Procedure 1: Pulmonary and Thoracic: 97611 Dx bronchoscopy/wash
--- NOTE | 2023-01-03 21:07 | Procedure Note ---
Procedure Note Date of Service January 03, 2023 Note CENTRAL LINE PROCEDURE NOTE: Procedure: Central Line Placement Provider: Randolph Avalos MD Indication: Central Drug Administration, Poor Venous Access, Multiple Lab Draws Necessary, etc. Anesthesia: 4 mL 1% lidocaine without epinephrine locally Site: Left subclavian Procedure was emergent. Patient is intubated sedated and unable to provide consent. No family immediately available. A time-out was completed verifying correct patient, procedure, site, positioning, and implants(s) or special equipment if applicable. Landmarks were identified. Patients left clavicular area was cleaned and draped in normal sterile fashion. The superficial tissue was anesthetized using 4 mL of 1% lidocaine without epinephrine. After adequate anesthetization was achieved, the left subclavian vein was cannulated using an introducer needle on a syringe. Good venous blood return was maintained prior to removal of syringe from introducer needle. Using Seldinger Technique, a guide wire was advanced through the introducer needle without resistance. The introducer needle was removed. A small incision was made in penetrating fashion at the guide wire insertion site utilizing an 11 blade scalpel. The dilator was advanced to the vessel without resistance. The dilator was exchanged for the triple lumen catheter which was advanced into the vessel without resistance. The guide wire was removed intact from the catheter without issue. Claves were placed on each catheter tip with confirmation of good blood flow from each lumen. Each port was easily flushed with sterile saline. The catheter was placed at the hub and sutured in place. BioPatch was applied to the catheter and a sterile Tegaderm dressing was applied over the catheter with careful attention to sterility. Patient tolerated procedure well. No immediate complications were met. Post procedure x-ray was completed, placement was appropriate and no pneumothorax was noted. Estimated blood loss: 5 mL Coding CPT Codes Tubes, Drains, and Vasc Access - Tubes, Drains, and Vasc Access: [id number] Place catheter in vein superior or inferior vena cava ([id number]) [facility] [place] Procedure Codes (Charges) Tubes, Drains, and Vasc Access Procedure 1: Tubes, Drains, and Vasc Access: [id number] Place catheter in vein superior or inferior vena cava
--- NOTE | 2023-01-03 21:10 | Procedure Note ---
Procedure Note Date of Service January 03, 2023 Note ARTERIAL LINE PROCEDURE NOTE: Procedure: Arterial Line Placement Provider: Randolph Avalos MD Indication: Monitoring on Pressors Procedure was emergent. Patient unable to provide verbal or written consent. No family immediately available. A time-out was completed verifying correct patient, procedure, site, positioning, and implant(s) or special equipment if applicable. Allens test was performed to ensure adequate perfusion. Patients left wrist was prepped and draped in the usual sterile fashion. Initial attempt without ultrasound was performed and I was able to access the artery however the wire was unable to be threaded. Then transitioned to ultrasound guidance to aid needle placement. A 20g Arrow arterial line was introduced into the left radial artery. Catheter was threaded, and the needle was removed with appropriate blood return. Good waveform was observed. The patient tolerated the procedure well. Blood Loss: Minimal Complications: None Coding CPT Codes Tubes, Drains, and Vasc Access - Tubes, Drains, and Vasc Access: [id number] Arterial Cath/Cannulation Sampling/Monitoring/Transfusion ([id number]) [facility] [place] Codes (Charges) Tubes, Drains, and Vasc Access Procedure 1: Tubes, Drains, and Vasc Access: [id number] Arterial Cath/Cannulation Sampling/M onitoring/Transfusion
--- NOTE | 2023-01-03 21:19 | Procedure Note ---
Procedure Note Date of Service January 03, 2023 Note ARTERIAL LINE PROCEDURE NOTE: Procedure: Arterial Line Placement Provider: Randolph Avalos MD Indication: Monitoring on Pressors Anesthesia: None Emergent consent implied. Patient unable to provide verbal consent due to being on the ventilator. Notified by the nurses that the previously placed arterial line had lost its waveform and a hematoma was developing. This line was removed. Repeat line placement was indicated due to the patient still being on pressors. A time-out was completed verifying correct patient, procedure, site, positioning, and implant(s) or special equipment if applicable. Allens test was performed to ensure adequate perfusion. Patients right wrist was prepped and draped in the usual sterile fashion.A 20g Arrow arterial line was introduced into the right radial artery. Catheter was threaded, and the needle was removed with appropriate blood return. Good waveform was observed. The patient tolerated the procedure well. Blood Loss: Minimal Complications: None Coding CPT Codes Tubes, Drains, and Vasc Access - Tubes, Drains, and Vasc Access: [id number] Arterial Cath/Cannulation Sampling/Monitoring/Transfusion ([id number]) [facility] [place] Procedure Codes (Charges) Tubes, Drains, and Vasc Access Procedure 1: Tubes, Drains, and Vasc Access: [id number] Arterial Cath/Cannulation Sampling/Monitoring/Transfusion
--- NOTE | 2023-01-03 21:31 | Critical Care Consultation ---
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 He is now intubated and on the ventilator due to aspiration into the lower respiratory tree. Recommendations: 1. Neurologic: Continue sedation with propofol and as needed fentanyl and Versed. Will keep sedated until mechanical ventilation is no longer required. Continue outpatient Zyprexa 2. Respiratory: Dense consolidation of bilateral lower lobes. Please refer to bronchoscopy report performed today. Await cultures. Given the patient's recurrent aspiration, will keep intubated until GI forms a definitive plan with regards to his esophageal dysfunction. Unclear if PEG tube might be required. He only got short-term relief from his dilatation performed previously. Continue pulmonary toilet and this will need to be instituted post extubation as well. The patient has hypoxemic and hypercarbic respiratory failure of unclear etiology. His baseline bicarb level is above 35 consistent with chronic hypercarbia. He feels well compensated with a CO2 level of around 60. Outpatient workup could be considered but this may make it difficult to wean the patient off mechanical ventilation in the future. Do not think he is a good candidate for tracheostomy. Family will need to be updated as his care progresses. 3. Cardiovascular: Atrial fibrillation with rapid ventricular response. Holding Eliquis. Heparin drip per cardiology. Will try and pursue continued rate control. He is now hypotensive and requiring pressors likely secondary to the effects of sedatives. Hold diuretics given his hypotension may consider transition off of Levophed to phenylephrine if tachycardia remains problematic. 4. ID: Suspect aspiration pneumonia. He has been in and out of the hospital and nursing homes. Will initiate broad-spectrum antibiotics in the form of Zosyn and vancomycin pending Gram stain and cultures from lower respiratory tree. 5. GI: Severe achalasia with esophageal stricture. Await GI consultation in the morning. Again keep intubated until GI issues are adequately addressed. PPI in place. Hold tube feedings for now. 6. Endocrine: Glycemic control per protocol. 7. Heme-onc: Mild anemia. No evidence of acute blood loss. No indication for transfusion currently. Continue to trend. 8. Renal: Chronic respiratory acidosis. Acute on chronic renal insufficiency. Baseline creatinine appears to be 1.0-1.1, currently 1.49. Will follow with [facility] of renal perfusion. If creatinine worsens, low threshold for nephrology input although I think the patient is a poor candidate for renal replacement therapy. Prophylaxis: PPI and heparin drip The patient is critically ill at this point time with significant possibility of clinical deterioration and/or . The above recommendations and plan were discussed with bedside critical care team in detail. A total of 47 minutes in critical care time exclusive of procedures was spent in evaluation management stabilization of this patient. History of Present Illness Attending Physician: Maryam Askew MD History of Present Illness Asked by hospitalist to assist in evaluation management this patient with hypoxemic respiratory failure and aspiration. History is obtained from review electronic medical record. The patient was intubated by the time he arrived to the ICU and unable to provide any history. Patient is an 82-year-old male with a history of severe achalasia and esophageal stricture. He apparently underwent a dilatation by GI about a week ago. He presented to the emergency room early this morning with recurrent aspiration shortness of breath and confusion. He been at a residential. Patient was found to be in atrial fibrillation. Cardiology consultation and GI consultation were obtained due to the achalasia and aspiration. He was seen by cardiology and GI. GIs impression was hold Eliquis and consider [facility] evaluation on Wednesday for possible repeat dilatation. While he was waiting for a bed assignment in the emergency room, he developed increasing shortness of breath and was placed on BiPAP. CT of the chest was obtained which revealed a distended fluid-filled esophagus up to the level of the glottis. Critical care was consulted. He was seen by the [facility] and was recommended that he undergo semielective intubation to prevent risk of recurrent aspiration. He was intubated by anesthesia and transferred to the intensive care unit. On my arrival in the ICU the patient was hypotensive on pressors. We immediately performed a bronchoscopy to clear his lower airways based on the fluid-filled bronchi identified on CT scan. Arterial lines and central lines were placed. Allergies Allergy/AdvReac Type Severity Reaction Status Date / Time oxycodone Allergy Unknown Flushing Verified 01/03/23 02:35 propoxyphene Allergy Unknown Flushing Verified 01/03/23 02:35 niacin AdvReac Unknown flushed Verified 01/03/23 02:35 feeling Home Medications Medication Instructions Recorded Confirmed Type albuterol sulfate 90 mcg/actuation 2 puff inhalation Q4 PRN Shortness 08/03/22 01/03/23 History aerosol inhaler Of Breath Or Wheezing apixaban 2.5 mg tablet (Eliquis) 2.5 mg PO BID 08/03/22 01/03/23 History aspirin 81 mg capsule 81 mg PO QAM 08/03/22 01/03/23 History atorvastatin 20 mg tablet (Lipitor) 20 mg PO HS 08/03/22 01/03/23 History calcium carbonate 600 mg-vitamin 1 tab PO QAM 08/03/22 01/03/23 History D3 10 mcg (400 unit) tablet (Calcium 600 + D(3)) cyclosporine 0.05 % eye drops in a 1 drp ophthalmic (eye) Q12H PRN 08/03/22 01/03/23 History dropperette (Restasis) Dry Eye(S) diltiazem HCl 180 mg 180 mg PO QAM 08/03/22 01/03/23 History capsule,extended release 24 hr guaifenesin 600 mg tablet, 600 mg PO BID 08/03/22 01/03/23 History extended release 12 hr (Mucinex) levothyroxine 75 mcg tablet 75 mcg PO QAM 08/03/22 01/03/23 History metoprolol tartrate 25 mg tablet 25 mg PO BID 08/03/22 01/03/23 History olanzapine 5 mg tablet (Zyprexa) 5 mg PO HS 08/03/22 01/03/23 History ropinirole 1 mg tablet 1 mg PO HS 08/03/22 01/03/23 History tamsulosin 0.4 mg capsule 0.4 mg PO QAM 08/03/22 01/03/23 History cyclobenzaprine 5 mg tablet 5 mg PO TID 30 days #90 tabs 12/18/22 01/03/23 Rx Naloxone 4mg/0.1ml 0 mg intranasal DIRECTED PRN 01/03/23 01/03/23 History .opiod od acetaminophen 500 mg tablet 1,000 mg PO Q8 PRN pain 01/03/23 01/03/23 History (Tylenol Extra Strength) docusate sodium 100 mg capsule 100 mg PO BID 01/03/23 01/03/23 History escitalopram oxalate 10 mg tablet 20 mg PO DAILY 01/03/23 01/03/23 History fluticasone furoate 100 1 inh inhalation DAILY 01/03/23 01/03/23 History mcg-vilanterol 25 mcg/dose inhalation powder (Breo Ellipta) hydrocodone 5 mg-acetaminophen 325 1 tab PO Q6H PRN .Pain 4-10 01/03/23 01/03/23 History mg tablet magnesium oxide 400 mg PO DAILY 01/03/23 01/03/23 History mirtazapine 15 mg tablet 30 mg PO HS 01/03/23 01/03/23 History ondansetron HCl 4 mg tablet 4 mg PO Q4 PRN Nausea 01/03/23 01/03/23 History pantoprazole 40 mg tablet,delayed 40 mg PO BID 01/03/23 01/03/23 History release (Protonix) polyethylene glycol 3350 17 gram 17 g PO DAILY PRN Constipation 01/03/23 01/03/23 History oral powder packet (Miralax) potassium chloride 20 mEq 20 meq PO DAILY 01/03/23 01/03/23 History tablet,extended release pregabalin 100 mg capsule (Lyrica) 100 mg PO TID 01/03/23 01/03/23 History sennosides 8.6 mg-docusate sodium 1 tab-cap PO DAILY PRN Constipation 01/03/23 01/03/23 History 50 mg tablet (Senokot-S) sodium chloride 0.9 % 100 ml IV DIRECTED 01/03/23 01/03/23 History sodium chloride 3.5 % for 4 ml inhalation BID 01/03/23 01/03/23 History nebulization (Hyper-Ck) Patient History Medical History Chronic respiratory failure Encounter for pre-operative examination Prostate cancer Around 2013- s/p brachytherapy - Lupron q 3 months Pulmonary disease restrictive lung disease, hypoxic respiratory failure, hypercapnic respiratory failure , bronchiectasis, 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, 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 per records Aortic stenosis Mild per 2021 ECHO Diastolic heart failure Compensated per cardio records Hx of pyoderma gangrenosum BLE On anticoagulant therapy eliquis Chronic kidney disease (CKD), stage III (moderate) Restless leg syndrome Anxiety and depression A-fib follows w/ [facility] cardio, [place] on Eliquis Pacemaker medtronic, last checked 05/13/22, remotely Hypothyroidism Hyperlipidemia HTN (hypertension) Sleep apnea bipap; 3 lpm hs Asthmatic bronchitis Breathing stable - chronic (hx of smoker) Tachy-noni syndrome s/p pacemaker placement 2017 Surgical History Status post left hip replacement History of surgery Rectal fissure repair S/P placement of cardiac pacemaker Hx of colonoscopy Hx of tonsillectomy Hx of total hip arthroplasty RIGHT Family History Other No family history of adverse response to anesthesia Social History Smoking Status: Former smoker Tobacco Type: Cigarettes Second Hand Exposure: No; Do You Dip or Chew Tobacco: No; Hx Alcohol Use: No Hx Substance Use: No Preferred Language: Romanian Communication Ability: Effective Care Management Assistant Required: No Beliefs That Will Affect Care: None Current Living Situation: Spouse Feels Safe at Home: Yes Assistive Devices: Cane, Oxygen - Continuous and Walker Review of Systems Review of Systems: Unobtainable due to endotracheal tube Physical Exam Constitutional: + mechanically ventilated Elderly male sedated and on the ventilator Neck: trachea midline, no thyromegaly Respiratory: no respiratory distress, no labored breathing and not tachypneic Auscultation: + rhonchi Cardiovascular: RRR, no murmur, no edema Gastrointestinal (Abdomen): normal bowel sounds, soft, nontender, no h epatosplenomegaly Musculoskeletal: Extremities: extremities normal to inspection Skin: no rashes, warm and dry Neurologic: Sedated Lymphatic: no cervical lymphadenopathy Results & Data Results & Data Vital Signs (Past 12 Hours) Vital Signs Pulse Pulse Resp BP Pulse Ox O2 Del Method FiO2 01/03/23 19:24 65/48 L 01/03/23 19:24 109 H 17 100 01/03/23 19:22 93/58 L 01/03/23 19:22 112 H 2 L 97 01/03/23 19:20 111 H 21 100 01/03/23 19:20 103/67 01/03/23 19:18 98/67 L 01/03/23 19:18 123 H 21 100 01/03/23 19:16 122/75 01/03/23 19:16 105 H 23 100 01/03/23 19:13 117 H 25 H 100 01/03/23 19:13 106/75 01/03/23 19:10 110 H 01/03/23 18:50 117/87 01/03/23 18:50 122 H 18 87 L 01/03/23 18:40 111/84 01/03/23 18:40 122 H 19 98 01/03/23 18:30 119 H 25 H 89 L 01/03/23 18:30 120/83 01/03/23 18:22 118 H 24 78 L 01/03/23 18:22 106/85 01/03/23 18:20 111 H 19 87 L 01/03/23 18:10 121/86 01/03/23 18:10 109 H 28 H 94 01/03/23 18:07 118 H 123/81 01/03/23 18:00 123/81 01/03/23 18:00 103 H 24 99 01/03/23 17:53 108/66 01/03/23 17:53 114 H 21 95 01/03/23 17:50 134 H 20 98 01/03/23 17:40 26 H 97 01/03/23 17:30 102 H 22 98 01/03/23 17:30 110/76 01/03/23 17:20 133 H 20 98 01/03/23 17:20 98/80 L 01/03/23 17:17 118 H 112/82 01/03/23 17:11 112/82 01/03/23 17:10 130 H 20 95 01/03/23 17:01 113/77 01/03/23 17:01 125 H 23 97 01/03/23 17:00 127 H 27 H 97 01/03/23 16:51 123 H 24 96 01/03/23 16:51 75/63 L 01/03/23 16:50 126 H 21 96 01/03/23 16:45 95 BiPAP 01/03/23 16:40 122 H 29 H 96 01/03/23 16:40 100/72 01/03/23 16:30 102/74 01/03/23 16:30 124 H 25 H 98 01/03/23 16:20 116/84 01/03/23 16:20 118 H 22 94 01/03/23 16:15 115 H 19 96 01/03/23 16:15 115/71 01/03/23 16:14 121 H 96 01/03/23 15:46 119 H 01/03/23 15:30 120 H 31 H 81 L BiPAP 01/03/23 15:20 120/86 01/03/23 15:20 119 H 24 94 01/03/23 15:12 110/74 01/03/23 15:12 125 H 23 96 01/03/23 15:10 122 H 27 H 98 01/03/23 15:02 112 H 01/03/23 15:00 93/66 L 01/03/23 15:00 121 H 25 H 93 01/03/23 14:57 114 H 20 98 60 01/03/23 14:50 104/86 01/03/23 14:50 103 H 35 H 99 01/03/23 14:40 106/80 01/03/23 14:40 114 H 31 H 95 01/03/23 14:30 100/72 01/03/23 14:30 111 H 16 94 01/03/23 14:20 113 H 22 96 01/03/23 14:20 109/70 01/03/23 14:10 119 H 23 96 01/03/23 14:10 94/62 L 01/03/23 14:02 111/63 01/03/23 14:02 118 H 22 97 01/03/23 14:00 105 H 26 H 98 01/03/23 13:54 BiPAP 01/03/23 13:51 111 H 20 98 01/03/23 13:51 112/62 01/03/23 13:50 107 H 26 H 95 01/03/23 13:40 104/75 01/03/23 13:40 108 H 22 97 01/03/23 13:35 112/74 01/03/23 13:35 117 H 25 H 93 01/03/23 13:30 120 H 23 93 01/03/23 13:22 122 H 01/03/23 13:20 132 H 19 92 01/03/23 13:10 116 H 21 94 11/26/23 13:10 129/95 01/03/23 13:06 132 H 133/79 01/03/23 13:01 137 H 17 92 01/03/23 13:01 133/79 01/03/23 13:00 155 H 29 H 86 L 01/03/23 12:51 139 H 23 88 L 01/03/23 12:51 122/95 01/03/23 12:50 118 H 23 85 L 01/03/23 12:40 130/96 01/03/23 12:40 135 H 21 01/03/23 12:39 138 H 21 01/03/23 12:39 111/85 01/03/23 12:35 115/82 01/03/23 12:35 143 H 31 H 01/03/23 12:30 131 H 30 H 98 01/03/23 12:20 138 H 22 91 01/03/23 12:12 135 H 32 H 89 L 01/03/23 12:12 135/90 01/03/23 12:10 124 H 23 87 L 01/03/23 12:01 120 H 28 H 94 01/03/23 12:01 127/90 01/03/23 12:00 115 H 25 H 95 01/03/23 11:51 125 H 22 84 L 01/03/23 11:51 135/89 01/03/23 11:50 110 H 34 H 89 L 01/03/23 11:40 124 H 23 89 L 01/03/23 11:33 129 H 98 BiPAP 01/03/23 11:30 22 87 L 01/03/23 11:21 119/85 01/03/23 11:21 145 H 22 87 L 01/03/23 11:20 121 H 28 H 82 L 01/03/23 11:10 108/74 01/03/23 11:10 137 H 28 H 93 01/03/23 11:01 121/79 01/03/23 11:01 130 H 22 96 01/03/23 11:00 119 H 23 96 01/03/23 10:51 121/85 01/03/23 10:51 114 H 22 94 01/03/23 10:50 131 H 26 H 95 01/03/23 10:42 128 H 121/80 01/03/23 10:41 125 H 19 99 01/03/23 10:41 121/80 01/03/23 10:40 140 H 27 H 98 01/03/23 10:31 118 H 126/69 01/03/23 10:30 118 H 25 H 93 01/03/23 10:20 126/69 01/03/23 10:20 126 H 28 H 97 01/03/23 10:20 129 H 126/69 01/03/23 10:20 135 H 119/74 01/03/23 10:10 91/71 L 01/03/23 10:10 117 H 24 97 01/03/23 10:06 135 H 119/74 01/03/23 10:00 119/74 01/03/23 10:00 130 H 21 95 01/03/23 09:57 96/75 L 01/03/23 09:57 156 H 22 95 01/03/23 09:51 160 H 28 H 97 70 01/03/23 09:50 146 H 20 94 01/03/23 09:40 144 H 35 H 79 L 01/03/23 09:30 93/74 L 01/03/23 09:30 153 H 26 H Critical Care Results & Data Vital Signs (Past 12 Hours) Vital Signs Pulse Pulse Resp BP Pulse Ox O2 Del Method FiO2 01/03/23 19:24 65/48 L 01/03/23 19:24 109 H 17 100 01/03/23 19:22 93/58 L 01/03/23 19:22 112 H 2 L 97 01/03/23 19:20 111 H 21 100 01/03/23 19:20 103/67 01/03/23 19:18 98/67 L 01/03/23 19:18 123 H 21 100 01/03/23 19:16 122/75 01/03/23 19:16 105 H 23 100 01/03/23 19:13 117 H 25 H 100 01/03/23 19:13 106/75 01/03/23 19:10 110 H 01/03/23 18:50 117/87 01/03/23 18:50 122 H 18 87 L 01/03/23 18:40 111/84 01/03/23 18:40 122 H 19 98 01/03/23 18:30 119 H 25 H 89 L 01/03/23 18:30 120/83 01/03/23 18:22 118 H 24 78 L 01/03/23 18:22 106/85 01/03/23 18:20 111 H 19 87 L 01/03/23 18:10 121/86 01/03/23 18:10 109 H 28 H 94 01/03/23 18:07 118 H 123/81 01/03/23 18:00 123/81 01/03/23 18:00 103 H 24 99 01/03/23 17:53 108/66 01/03/23 17:53 114 H 21 95 01/03/23 17:50 134 H 20 98 01/03/23 17:40 26 H 97 01/03/23 17:30 102 H 22 98 01/03/23 17:30 110/76 01/03/23 17:20 133 H 20 98 01/03/23 17:20 98/80 L 01/03/23 17:17 118 H 112/82 01/03/23 17:11 112/82 01/03/23 17:10 130 H 20 95 01/03/23 17:01 113/77 01/03/23 17:01 125 H 23 97 01/03/23 17:00 127 H 27 H 97 01/03/23 16:51 123 H 24 96 01/03/23 16:51 75/63 L 01/03/23 16:50 126 H 21 96 01/03/23 16:45 95 BiPAP 01/03/23 16:40 122 H 29 H 96 01/03/23 16:40 100/72 01/03/23 16:30 102/74 01/03/23 16:30 124 H 25 H 98 01/03/23 16:20 116/84 01/03/23 16:20 118 H 22 94 01/03/23 16:15 115 H 19 96 01/03/23 16:15 115/71 01/03/23 16:14 121 H 96 01/03/23 15:46 119 H 01/03/23 15:30 120 H 31 H 81 L BiPAP 01/03/23 15:20 120/86 01/03/23 15:20 119 H 24 94 01/03/23 15:12 110/74 01/03/23 15:12 125 H 23 96 01/03/23 15:10 122 H 27 H 98 01/03/23 15:02 112 H 01/03/23 15:00 93/66 L 01/03/23 15:00 121 H 25 H 93 01/03/23 14:57 114 H 20 98 60 01/03/23 14:50 104/86 01/03/23 14:50 103 H 35 H 99 01/03/23 14:40 106/80 01/03/23 14:40 114 H 31 H 95 01/03/23 14:30 100/72 01/03/23 14:30 111 H 16 94 01/03/23 14:20 113 H 22 96 01/03/23 14:20 109/70 01/03/23 14:10 119 H 23 96 01/03/23 14:10 94/62 L 01/03/23 14:02 111/63 01/03/23 14:02 118 H 22 97 01/03/23 14:00 105 H 26 H 98 01/03/23 13:54 BiPAP 01/03/23 13:51 111 H 20 98 01/03/23 13:51 112/62 01/03/23 13:50 107 H 26 H 95 01/03/23 13:40 104/75 01/03/23 13:40 108 H 22 97 01/03/23 13:35 112/74 01/03/23 13:35 117 H 25 H 93 01/03/23 13:30 120 H 23 93 01/03/23 13:22 122 H 01/03/23 13:20 132 H 19 92 01/03/23 13:10 116 H 21 94 01/03/23 13:10 129/95 01/03/23 13:06 132 H 133/79 01/03/23 13:01 137 H 17 92 01/03/23 13:01 133/79 01/03/23 13:00 155 H 29 H 86 L 01/03/23 12:51 139 H 23 88 L 01/03/23 12:51 122/95 01/03/23 12:50 118 H 23 85 L 01/03/23 12:40 130/96 01/03/23 12:40 135 H 21 01/03/23 12:39 138 H 21 01/03/23 12:39 111/85 01/03/23 12:35 115/82 01/03/23 12:35 143 H 31 H 11/26/23 12:30 131 H 30 H 98 01/03/23 12:20 138 H 22 91 01/03/23 12:12 135 H 32 H 89 L 01/03/23 12:12 135/90 01/03/23 12:10 124 H 23 87 L 01/03/23 12:01 120 H 28 H 94 01/03/23 12:01 127/90 01/03/23 12:00 115 H 25 H 95 01/03/23 11:51 125 H 22 84 L 01/03/23 11:51 135/89 01/03/23 11:50 110 H 34 H 89 L 01/03/23 11:40 124 H 23 89 L 01/03/23 11:33 129 H 98 BiPAP 01/03/23 11:30 22 87 L 01/03/23 11:21 119/85 01/03/23 11:21 145 H 22 87 L 01/03/23 11:20 121 H 28 H 82 L 01/03/23 11:10 108/74 01/03/23 11:10 137 H 28 H 93 01/03/23 11:01 121/79 01/03/23 11:01 130 H 22 96 01/03/23 11:00 119 H 23 96 01/03/23 10:51 121/85 01/03/23 10:51 114 H 22 94 01/03/23 10:50 131 H 26 H 95 01/03/23 10:42 128 H 121/80 01/03/23 10:41 125 H 19 99 01/03/23 10:41 121/80 01/03/23 10:40 140 H 27 H 98 01/03/23 10:31 118 H 126/69 01/03/23 10:30 118 H 25 H 93 01/03/23 10:20 126/69 01/03/23 10:20 126 H 28 H 97 01/03/23 10:20 129 H 126/69 01/03/23 10:20 135 H 119/74 01/03/23 10:10 91/71 L 01/03/23 10:10 117 H 24 97 01/03/23 10:06 135 H 119/74 01/03/23 10:00 119/74 01/03/23 10:00 130 H 21 95 01/03/23 09:57 96/75 L 01/03/23 09:57 156 H 22 95 01/03/23 09:51 160 H 28 H 97 70 01/03/23 09:50 146 H 20 94 01/03/23 09:40 144 H 35 H 79 L 01/03/23 09:30 93/74 L 01/03/23 09:30 153 H 26 H Lab & Micro Results (Past 24 Hours) RBC 3.96 M/uL (4.70-6.10) L 01/03/23 WBC 8.53 K/ul (4.8-10.8) 01/03/23 Hgb 11.5 g/dl (14.0-18.0) L 01/03/23 Hct 37.0 % (42.0-52.0) L 01/03/23 MCV 93.4 fL (80.0-100.0) 01/03/23 MCH 29.0 pg (25.0-34.0) 01/03/23 MCHC 31.1 g/dL (32.0-36.0) L 01/03/23 RDW Standard Deviation 53.6 fL (36.4-46.3) H 01/03/23 RDW Coefficient of Variation 15.5 % (11.5-14.5) H 01/03/23 Plt Count 191 K/uL (130-400) 01/03/23 MPV 11.1 fL (9.4-12.4) 01/03/23 Neutrophils (%) (Auto) 80.5 % 01/03/23 Lymphocytes (%) (Auto) 9.4 % 01/03/23 Monocytes # (Auto) 0.73 K/uL (0.11-0.59) H 01/03/23 Eosinophils # (Auto) 0.06 K/uL (0.00-0.50) 01/03/23 Immature Granulocyte % (Auto) 0.4 % 01/03/23 Neutrophils # (Auto) 6.88 K/uL (1.40-6.50) H 01/03/23 Lymphocytes # (Auto) 0.80 K/uL (1.20-3.40) L 01/03/23 Monocytes # (Auto) 0.73 K/uL (0.11-0.59) H 01/03/23 Eosinophils # (Auto) 0.06 K/uL (0.00-0.50) 01/03/23 Basophils # (Auto) 0.03 K/uL (0.00-0.20) 01/03/23 Immature Granulocyte # (Auto) 0.03 K/uL (0.01-0.20) 3 Na 142 mmol/L (136-145) 01/03/23 K 4.5 mmol/L (3.5-5.1) 01/03/23 Cl 97 mmol/L (98-107) L 01/03/23 CO2 38 mmol/L (21-32) H 01/03/23 Anion Gap 7 (3-11) 01/03/23 BUN 28 mg/dl (6-23) H 01/03/23 Creatinine 1.49 mg/dl (0.6-1.4) H 01/03/23 Estimated GFR ( Amer) 49.9 ml/min 01/03/23 Estimated GFR (Non-Af Amer) 43.1 ml/min 01/03/23 BUN/Creatinine Ratio 18.8 (10-20) 01/03/23 Glu 108 mg/dl (70-99(Fasting)) H 01/03/23 Ca 9.6 mg/dl (8.6-10.3) 01/03/23 Total Bilirubin 0.7 mg/dl (0.2-1.0) 01/02/23 Direct Bilirubin 0.2 mg/dl (0-0.2) 01/02/23 AST 15 U/L (13-39) 01/02/23 ALT 10 U/L (7-52) 01/02/23 Alkaline Phosphatase 89 U/L (34-104) 01/02/23 TP 6.7 gm/dl (6.0-8.3) 01/02/23 Albumin 3.7 gm/dl (3.4-5.0) 01/02/23 Mg 1.9 mg/dl (1.7-2.4) 01/03/23 06:49 Calcium Level 9.6 mg/dl (8.6-10.3) 01/03/23 06:49 Prothromb Time International Ratio 1.1 (0.9-1.1) 01/02/23 23:3 6 Venous Blood pH 7.41 (7.36-7.41) 01/03/23 16:48 Venous Blood Partial Pressure CO2 66 mmHg (38-50) H 01/03/23 16 :48 Venous Blood Partial Pressure O2 48 mmHg 01/03/23 16:48 Venous Blood HCO3 42 mmol/L 01/03/23 16:48 Venous Blood Base Excess 14.0 mEq/L 01/03/23 16:48 Venous Blood Oxygen Saturation 76.6 % 01/03/23 16:48 Diagnostic Findings (Past 24 Hours) Chest X-Ray 01/02/23 23:16 XR chest 1V portable CLINICAL HISTORY: Sepsis TECHNIQUE: Single frontal radiograph of the chest was obtained. Comparison: Comparison is made to chest radiograph 12/13/2022 FINDINGS: No lines and tubes are seen. Calcified aortic knob is seen. Lungs are underinflated. Airspace opacities are seen in the left lower lobe. No evidence of pleural effusion or pneumothorax. IMPRESSION: Left lower lobe airspace opacities likely represent atelectasis with or without superimposed aspiration/pneumonia. ACT 112: Negative or not required by law. Electronically signed by: Beka Merlos M.D. 01/03/2023 9:[address] 01/03/23 03:57 Exam(s): CT HEAD Without Contrast EXAM: CT Head Without Intravenous Contrast CLINICAL HISTORY: Reason for exam: AMS. TECHNIQUE: Axial computed tomography images of the head/brain without intravenous contrast. CTDI is 36.79 mGy and DLP is 625.8 mGy-cm. Automated exposure control was utilized for the study. A dose lowering technique was utilized adhering to the principles of ALARA. COMPARISON: CT head performed 11/30/22 FINDINGS: There is no acute intracranial hemorrhage or major vascular territory infarct. No mass effect or midline shift seen. There is prominence of the ventricles and sulci consistent with generalized parenchymal volume loss. Scattered hypodensities throughout the periventricular and subcortical white matter are noted, likely sequela of chronic microvascular changes. The calvarium is intact. Bilateral lens replacements noted. The visualized paranasal sinuses and mastoid air cells are clear. IMPRESSION: No acute intracranial pathology. Generalized parenchymal volume loss and sequela of chronic microvascular ischemic angiopathy. Electronically signed by: Elmer Woodruff M.D. 01/03/23 06:[address] 01/03/23 15:14 CT chest diagnostic wo con CLINICAL HISTORY: echodensity compressing posterior LA on echo TECHNIQUE: Multidetector row helical CT of the chest was performed. Coronal and sagittal reformations were obtained. Automated dose lowering techniques and/or adjustment according to patient size were utilized for this exam. CT DOSE: 1090.94 mGy.cm Comparison: Comparison is made to CT chest 12/12/2022 FINDINGS: Lungs and pleura: Multifocal consolidations are seen predominantly in the lower lungs. Some densities are also seen in the bilateral upper lobes. Heart and pericardium: A prominent and thick walled esophagus results in mass effect upon the left atrium. Vessels: Moderate atherosclerotic changes in the aorta and coronary arteries. Mediastinum and jemal: Unremarkable. Chest wall and lower neck: Unremarkable. Abdomen: Unremarkable. Bones: Degenerative changes in the thoracic spine. Posterior fixation hardware is in the lower thoracic and upper lumbar spine. IMPRESSION: 1. The esophagus is markedly dilated with heterogeneous, gas containing material and suggestion of a thickened esophageal wall, resulting in mass effect on the left atrium. Findings place patient at elevated aspiration risk. This may represent achalasia with or without superimposed esophagitis. 2. Multifocal airspace opacities are compatible with aspiration and/or pneumonia. ACT 112: Negative or not required by law. Electronically signed by: Beka Merlos M.D. 01/03/2023 4:47 PM Chest X-Ray 01/03/23 19:19 XR chest 1V portable CLINICAL HISTORY: post intubation eval ETT, OGT placement eval lung TECHNIQUE: Single frontal radiograph of the chest was obtained. Comparison: Comparison is made to chest radiograph 01/02/2023 FINDINGS: Endotracheal tube tip terminates 3.8 cm from the [facility]. The enteric tube tip and side-port lie above the diaphragm. Cardiomegaly is noted. The aortic arch is calcified. Lungs are underinflated but clear. No evidence of pleural effusion or pneumothorax. Posterior fixation hardware is seen in the thoracic spine. IMPRESSION: Satisfactory appearance of endotracheal tube. Endotracheal tube tip and side- port lie above the diaphragm and could be advanced approximately 16 cm for improved positioning. ACT 112: Negative or not required by law. Electronically signed by: Beka Merlos M.D. 01/03/2023 8:29 PM I & O Totals 24 Hours 01/02/23 01/03/23 01/04/23 06:59 06:59 06:59 Intake Total 100 / 100 105.991 / 105.991 Balance 100 / 100 105.991 / 105.991 Cumulative 01/02/23 22:48 thru 01/03/23 20:07 Intake Total 205.991 Balance 205.991 RT Ventilator Mngmt (Last Documented) Ventilator Ordered Settings Respiratory Rate 17 01/03/23 19:24 Fraction of Inspired Oxygen 60 01/03/23 14:57 Ventilator - PT Measurements Respiratory Rate 17 End-Tidal CO2 34 Coding Level of Care Code 23972 CRITICAL CARE 1ST 30-74M Diagnoses Aspiration into airway, initial encounter T17.908A Encounter type: initial encounter Acute on chronic respiratory failure with hypoxia and hypercapnia J96.21; J96.22 Acute on chronic diastolic (congestive) heart failure I50.33 Atrial fibrillation with RVR I48.91 Food impaction of esophagus T18.128A; [id number].F3XA (1) Aspiration into airway Encounter type: initial encounter Qualified Code(s): T17.908A - Unspecified foreign body in respiratory tract, part unspecified causing other injury, initial encounter
[2023-01-03 21:43] LABS: Troponin I High Sensitivity 6.4 pg/ml (0-20)
[2023-01-03 21:44] LABS: iSTAT Art Bld Gas pCO2 Correct 47 mmHg (35-46); iSTAT Art Bld Gas pH Corrected 7.469 (7.35-7.45); iSTAT Arterial Blood Gas HCO3 34 meg/L (19-24); iSTAT Arterial Blood Gas pCO2 47 mmHg (35-46); iSTAT Arterial Blood Gas pH 7.47 (7.35-7.45); iSTAT Arterial Blood Gas pO2 207 mmHg (80-95); iSTAT Arterial Blood Gas pO2 C 207; iSTAT Carbon Dioxide 35 mmol/L (24-31); iSTAT FiO2 100 %; iSTAT Hematocrit 32 % (42-52); iSTAT Hemoglobin 10.9 g/dl (14.0-18.0); iSTAT Potassium 3.7 mmol/L (3.3-5.0); iSTAT Site Art Line; iSTAT Sodium 141 mmol/L (135-144)
[2023-01-03 22:51] LABS: Albumin Globulin Ratio 1.2 (0.9-2); Albumin Level 3.4 gm/dl (3.4-5.0); BUN Creatinine Ratio 18.3 (10-20); Bilirubin,Total 1.1 mg/dl (0.2-1.0); Calcium 9.2 mg/dl (8.6-10.3); Creatinine Clr Calc Pharmacy 38.3 ml/min; Est GFR (African American) 39.7 ml/min; Est GFR (Non-African American) 34.3 ml/min; Globulin 2.9 gm/dl (2.5-4.0); Total Protein 6.3 gm/dl (6.0-8.3)
[2023-01-04] MEDS ORDERED: DIGOXIN 500 MCG/2 ML AMP IV ONE
[2023-01-04] MEDS: propofoL 1,000 MG/100 ML VIAL IV SCH ×5 (00:34→16:52)
[2023-01-04] MEDS: PIPERACILLIN/TAZOBACTAM 4.5 GM in DEXTROSE 5% MINI-B 100 ML IV SCH ×3 (00:38→15:28)
[2023-01-04 01:12] LABS: Partial Thromboplastin Ratio 2.1
[2023-01-04] MEDS: METOPROLOL TARTRATE 1 MG/ML VIAL IV SCH ×5 (01:23→15:59)
[2023-01-04 01:28] LABS: Partial Thromboplastin Time 58.9 Seconds (21.0-31.0)
[2023-01-04 04:32] LABS: Base Excess ABG 12.1 mEq/L (-9-1.8); HCO3 ABG 36 mmol/L (19-24); Oxygen Saturation ABG 92.2 % (90-95); PCO2 ABG 42 mmHg (35-46); PO2 ABG 60 mmHg (80-95)
[2023-01-04 04:40] LABS: Allen Test Pos (Pos)
[2023-01-04] MEDS: Heparin IV Adult Wt-Based Low-Dose *NO* INITIAL Bolus Protocol IV SCH ×5 (04:41→07:32)
[2023-01-04 04:47] LABS: Hematocrit (blood only) 34.4 % (42.0-52.0); Hemoglobin 10.9 g/dl (14.0-18.0); Mean Corpuscular Hemoglobin 29.2 pg (25.0-34.0); Mean Corpuscular Hgb Conc 31.7 g/dL (32.0-36.0); Mean Corpuscular Volume 92.2 fL (80.0-100.0); Mean Platelet Volume 11.4 fL (9.4-12.4); Platelet Count 163 K/uL (130-400); RDW Coefficient of Variation 15.6 % (11.5-14.5); RDW Standard Deviation 52.8 fL (36.4-46.3); Red Blood Count 3.73 M/uL (4.70-6.10); White Blood Count 8.27 K/ul (4.8-10.8)
[2023-01-04 05:25] LABS: Partial Thromboplastin Ratio 2.1
[2023-01-04 05:29] LABS: Calcium 8.8 mg/dl (8.6-10.3); Creatinine Clr Calc Pharmacy 47.5 ml/min; Est GFR (African American) 51.6 ml/min; Est GFR (Non-African American) 44.5 ml/min; Magnesium 1.9 mg/dl (1.7-2.4); Phosphorus 2.9 mg/dl (2.5-4.9); Potassium 3.3 mmol/L (3.5-5.1); pH ABG 7.54 (7.35-7.45)
[2023-01-04] MEDS ORDERED: SODIUM CHLORIDE 0.9% 500 ML IV ONE (05:57)
[2023-01-04] MEDS ORDERED: ICU ELECTROLYTE REPLACEMENT PROTOCOL SCH (06:00)
[2023-01-04] MEDS: MAGNESIUM SULFATE / D5W 1 GM/100 ML BAG IV SCH ×2 (06:18→08:13)
[2023-01-04] MEDS: POTASSIUM CHLORIDE / WTR 20 MEQ/100 ML PLCT IV SCH ×4 (06:28→13:26)
[2023-01-04 06:29] LABS: Partial Thromboplastin Time 58.8 Seconds (21.0-31.0)
--- NOTE | 2023-01-04 07:38 | Hospitalist Progress Note ---
Date of Service January 04, 2023 Assessment & Plan (1) Aspiration into airway: (2) Acute on chronic respiratory failure with hypoxia and hypercapnia: (3) Acute on chronic diastolic (congestive) heart failure: (4) Atrial fibrillation with RVR: Plan Mr. May is an 82-year-old male with past medical significant for gout, hyperlipidemia, hypothyroidism, restrictive lung disease, bronchiectasis without complication, chronic respiratory failure with hypoxia and hypercapnia, ob structive sleep apnea on BiPAP, mild persistent asthma, interstitial pulmonary disease, persistent atrial fibrillation, tachybradycardia syndrome, s/p pacemaker, chronic diastolic CHF, CKD stage III, hypertension, history of CAD, history of BPH, depression, history of prostate cancer, generalized anxiety disorder, PTSD, schizophrenia, who is admitted due to acute on chronic respiratory failure with concerns of aspiration. Upon initial exam 01/03 in ED after admission, patient was in A Fib RVR after an attempt to take medications was made, in which patient aspirated, became agitated, and desaturated notably. Saturations improved to 90s on BiPAP and patient was alert and following commands. However, blood pressures hypotensive iso HRs in 140s-160s. A trial of metoprolol was made with some modest improvement in rates and increased blood pressure. ECHO revealed LA compression, CT chest revealed esophagus with massive dilatation and gastric contents up to glotis. Given concern of more aspiration with BiPAP, ICU was contacted for evaluation for airway protection. Decision was made to transfer patient to ICU and intubate 01/03. Emergent Bronchoscopy revealed thick purulent secretions, prominent in LLL but found bilaterally per report. Cultures sent 01/03. Antibiotics broadened. Discussion had with GI regarding next steps which include possible transfer to [facility] for more advanced GI interventions if patient stable to tolerate at this time. Ongoing discussion with ICU on stability/ability to tolerate transfer at this time--If no transfer anticipated, potential for EGD. In interim, patient on pressor support and requiring ICU monitor iso intubation. #Shock, multifactorial -circulatory collapse iso of aspiration pneumonia, respiratory failure, a fib RVR on acute HFpEF now requiring pressor support -Art line right radial placed 01/03, left subclavian central line -Pressor support per ICU, transitioned to phenyl iso a fib -Blood cultures 01/02 NGTD -Bronch sputum Pending -Urine pending #Intubated and Sedated #Metabolic encephalopathy, likely secondary to aspiration/hypoxic -As below -Delirium precautions -Management per ICU, propofol sedation, fentanyl analgesia #NICOLÁS on CKD IIIa *improving -up to 1.8 yesterday, like prerenal iso a fib, hypotension, acute illness -downtrended today -CTM, avoid nephrotoxic agents #Acute on chronic hypoxic/hypercarbic respiratory failure, multifactorial #Aspiration Pneumonia #RUDY #History of ILD On on 3 to 4 L oxygen baseline Bronch 01/03: bilateral purulent excretions in airway -Follow infectious work ip -Continue Zosyn and Vancomycin -Vent management per ICU #Acute on chronic heart failure with preserved EF s/p IV lasix -Cardiology on consult -IV lasix 40mg BID Monitor on telemetry Will follow echo, LA with compressive mass--esophageal compression? I's and O's #Atrial fibrillation with RVR #Tachybradycardia syndrome s/p pacemaker --Holding home metoprolol/dilt iso aspiration/dysphagia s/p IV digoxin per cards -Continue metoprolol 5mg q4h -Heparin drip while holding eliquis (last dose 01/02 am) -Daily iv digoxin #Aspiration #Achalasia c/b food impaction of esophagus #Ongoing difficulty swallowing for last few days as per family History of esophageal dilatation 12/15, noted food impaction up to glotis on 01/05 CT scan Strict NPO Consult GI: reassess wednesday IV as able #History of restrictive lung disease #History of chronic respiratory failure #History of mild persistent asthma #History of interstitial pulmonary disease Continue home inhalers Nebs as needed #History of CAD On aspirin statin and beta-dilip, resume home regimen when able #History of BPH on Flomax resume when able #Generalized anxiety disorder #Depression #Schizophrenia #PTSD on Lexapro, Remeron, Zyprexa: resume when able, discussed with psych--given multiple medications, including pregabalin and flexeril, in addition to psych medications, no notable risk of withdrawal like symptoms, resume when able #Restless leg syndrome On ropinirole resume when able #Hyperlipidemia On statin resume when able #Hypothyroidism On Synthyroid- IV in am #Ambulatory dysfunction Currently not walking since his back surgery PT OT when stable #Abnormal CT of the abdomen Last admission Cystic pancreatic lesions Needs follow-up #History of prostate cancer Seems follows with heme-onc DVT prophylaxis plan for heparin Disposition ICU Fluids per ICU, lytes per ICU replacement Analgesia fentanyl Sedation per ICU RASS protocol, propofol Thromboprophylaxis: heparin drip (holding home eliquis) HOB 30 degrees Ulcer ppx: Pantoprazole 40mg IV given intubated patient Glycemic control per ICU protocol SAT/SBT: sedation/anagelsia per ICU, SBT once GI with definitive plan Bowel regimen when able Indwelling cath: montoya 01/03, R art line, left subcalvian Deescalte antibiotics as able CODE STATUS Full code if there is chance of recovery as per discussion with the family Admission and Anticipated Discharge Date Admission Date: January 03, 2023 Subjective Family at bedside ( and daughter with son-in-law) discussed the course of patient's admission and looming concerns/next interventions in detail Patient intubated/sedated Review of Systems Review of Systems: Unobtainable due to endotracheal tube Physical Exam Constitutional: sedated Respiratory: minimal vent settings, intubated Cardiovascular: irreggular irregular, rates in 90s-110s, phenylephrine on Results & Data Results & Data Vital Signs (Past 12 Hours) Vital Signs Temp Pulse Pulse Resp BP BP Pulse Ox 01/04/23 05:52 36.7 C 01/04/23 05:48 01/04/23 05:35 36.8 C 94 H 18 144/67 H 92 01/04/23 05:30 36.9 C 90 16 91 01/04/23 05:01 36.9 C 95 H 16 01/04/23 05:01 81/67 L 01/04/23 05:00 36.9 C 95 H 15 91 01/04/23 04:35 95 H 16 95 01/04/23 04:30 36.9 C 99 H 16 89 L 01/04/23 04:00 36.8 C 105 H 16 95 01/04/23 04:00 153/93 H 01/04/23 03:36 36.3 C L 102 H 16 94 01/04/23 03:30 36.8 C 93 H 16 94 01/04/23 03:20 36.7 C 110 H 16 92 01/04/23 03:10 36.7 C 103 H 16 94 01/04/23 03:00 123/77 01/04/23 03:00 36.7 C 111 H 16 94 01/04/23 02:50 36.7 C 104 H 16 94 01/04/23 02:40 36.7 C 115 H 16 94 01/04/23 02:35 96 H 01/04/23 02:30 36.7 C 105 H 16 93 01/04/23 02:26 36.6 C 104 H 20 125/81 95 01/04/23 02:20 36.7 C 109 H 16 94 01/04/23 02:10 36.7 C 103 H 16 94 01/04/23 02:00 125/81 01/04/23 02:00 36.7 C 99 H 16 95 01/04/23 01:50 36.7 C 106 H 16 95 01/04/23 01:40 36.7 C 101 H 16 95 01/04/23 01:30 36.7 C 98 H 16 95 01/04/23 01:20 36.7 C 104 H 16 95 01/04/23 01:10 36.7 C 101 H 16 95 01/04/23 01:00 36.7 C 100 H 16 95 01/04/23 01:00 118/72 01/04/23 00:50 36.7 C 105 H 16 95 01/04/23 00:40 36.7 C 99 H 16 95 01/04/23 00:38 36.7 C 101 H 16 01/04/23 00:38 88/55 L 01/04/23 00:36 36.7 C 95 H 16 95 01/04/23 00:36 85/62 L 01/04/23 00:34 36.7 C 98 H 16 95 01/04/23 00:34 86/56 L 01/04/23 00:32 76/54 L 01/04/23 00:32 36.7 C 114 H 16 95 01/04/23 00:30 85/61 L 01/04/23 00:30 36.7 C 105 H 16 94 01/04/23 00:28 86/57 L 01/04/23 00:28 36.7 C 104 H 16 95 01/04/23 00:26 36.7 C 109 H 16 95 01/04/23 00:26 97/66 L 01/04/23 00:24 36.7 C 104 H 16 95 01/04/23 00:24 103/74 01/04/23 00:22 36.6 C 99 H 16 95 01/04/23 00:22 111/74 01/04/23 00:20 140/88 01/04/23 00:20 36.6 C 101 H 16 95 01/04/23 00:18 142/93 H 01/04/23 00:18 36.6 C 104 H 16 95 01/04/23 00:16 36.6 C 103 H 16 96 01/04/23 00:16 143/91 H 01/04/23 00:14 148/94 H 01/04/23 00:14 36.6 C 96 H 16 96 01/04/23 00:12 152/98 H 01/04/23 00:12 36.6 C 110 H 16 95 01/04/23 00:11 36.6 C 107 H 16 01/04/23 00:11 150/95 H 01/04/23 00:10 36.6 C 106 H 16 93 01/04/23 00:08 115/86 01/04/23 00:08 36.6 C 108 H 16 95 01/04/23 00:06 106/78 01/04/23 00:06 36.6 C 113 H 16 95 01/04/23 00:04 107/76 01/04/23 00:04 36.6 C 109 H 16 95 01/03/23 23:40 101 H 98/68 L 01/03/23 22:41 101 H 16 93 01/03/23 21:53 36.6 C 104 H 16 93 01/03/23 21:53 134/102 H 01/03/23 21:50 50/34 L 01/03/23 21:50 36.6 C 91 H 16 01/03/23 21:45 36.7 C 90 16 93 01/03/23 21:45 123/91 01/03/23 21:41 103/72 01/03/23 21:41 36.7 C 100 H 16 94 01/03/23 21:40 36.7 C 98 H 16 95 01/03/23 21:30 36.8 C 91 H 18 100 01/03/23 21:30 120/76 01/03/23 21:20 36.9 C 100 H 18 100 01/03/23 21:15 36.9 C 101 H 18 100 01/03/23 21:10 99/65 L 01/03/23 21:10 36.9 C 95 H 18 100 01/03/23 21:00 37.0 C 97 H 18 99 01/03/23 20:57 110/79 01/03/23 20:57 37.0 C 97 H 18 96 01/03/23 20:50 37.0 C 107 H 18 100 01/03/23 20:46 154/100 H 01/03/23 20:46 37.1 C 100 H 22 100 01/03/23 20:40 37.2 C 94 H 19 100 01/03/23 20:30 104 H 18 100 01/03/23 20:30 37.3 C 108 H 18 100 01/03/23 20:27 118/80 01/03/23 20:27 37.3 C 107 H 18 98 01/03/23 20:24 92/63 L 01/03/23 20:24 37.4 C 106 H 18 100 01/03/23 20:22 82/61 L 01/03/23 20:22 37.4 C 103 H 18 100 01/03/23 20:21 84/50 L 01/03/23 20:21 37.4 C 110 H 18 100 01/03/23 20:20 37.4 C 112 H 18 100 01/03/23 20:18 37.4 C 108 H 18 100 01/03/23 20:18 89/58 L 01/03/23 20:16 37.5 C 103 H 18 100 01/03/23 20:16 89/61 L 01/03/23 20:14 95/65 L 01/03/23 20:14 37.5 C 98 H 18 100 01/03/23 20:12 113/76 01/03/23 20:12 37.5 C 104 H 18 100 01/03/23 20:10 128/72 01/03/23 20:10 37.6 C H 103 H 18 100 01/03/23 20:08 112/75 01/03/23 20:08 37.6 C H 108 H 25 H 100 01/03/23 20:06 101/68 01/03/23 20:06 37.6 C H 109 H 16 100 01/03/23 20:04 93/71 L 01/03/23 20:04 37.6 C H 108 H 17 100 01/03/23 20:02 119/89 01/03/23 19:30 01/03/23 19:24 65/48 L 01/03/23 19:24 109 H 17 100 01/03/23 19:22 93/58 L 01/03/23 19:22 112 H 2 L 97 01/03/23 19:20 111 H 21 100 01/03/23 19:20 103/67 01/03/23 19:18 98/67 L 01/03/23 19:18 123 H 21 100 01/03/23 19:16 122/75 01/03/23 19:16 105 H 23 100 01/03/23 19:13 117 H 25 H 100 01/03/23 19:13 106/75 Pulse Ox O2 Del Method O2 Del Method FiO2 01/04/23 05:52 01/04/23 05:48 92 Mechanical Vent 01/04/23 05:35 Mechanical Vent 01/04/23 05:30 01/04/23 05:01 01/04/23 05:01 01/04/23 05:00 01/04/23 04:35 40 01/04/23 04:30 01/04/23 04:00 01/04/23 04:00 01/04/23 03:36 Mechanical Vent 01/04/23 03:30 01/04/23 03:20 01/04/23 03:10 01/04/23 03:00 01/04/23 03:00 01/04/23 02:50 01/04/23 02:40 01/04/23 02:35 01/04/23 02:30 01/04/23 02:26 Mechanical Vent 01/04/23 02:20 01/04/23 02:10 01/04/23 02:00 01/04/23 02:00 01/04/23 01:50 01/04/23 01:40 01/04/23 01:30 01/04/23 01:20 01/04/23 01:10 01/04/23 01:00 01/04/23 01:00 01/04/23 00:50 01/04/23 00:40 01/04/23 00:38 01/04/23 00:38 01/04/23 00:36 01/04/23 00:36 01/04/23 00:34 01/04/23 00:34 01/04/23 00:32 01/04/23 00:32 01/04/23 00:30 01/04/23 00:30 01/04/23 00:28 01/04/23 00:28 01/04/23 00:26 01/04/23 00:26 01/04/23 00:24 01/04/23 00:24 01/04/23 00:22 01/04/23 00:22 01/04/23 00:20 01/04/23 00:20 01/04/23 00:18 01/04/23 00:18 01/04/23 00:16 01/04/23 00:16 01/04/23 00:14 01/04/23 00:14 01/04/23 00:12 01/04/23 00:12 01/04/23 00:11 01/04/23 00:01/04/23 00:01/04/23 00:01/04/23 00:01/04/23 00:01/04/23 00:01/04/23 00:01/04/23 00:01/03/23 23:40 01/03/23 22:41 40 01/03/23 21:53 01/03/23 21:53 01/03/23 21:50 01/03/23 21:50 01/03/23 21:45 01/03/23 21:45 01/03/23 21:41 01/03/23 21:41 01/03/23 21:40 01/03/23 21:30 01/03/23 21:30 01/03/23 21:20 01/03/23 21:15 01/03/23 21:10 01/03/23 21:10 01/03/23 21:00 01/03/23 20:57 01/03/23 20:57 01/03/23 20:50 01/03/23 20:46 01/03/23 20:46 01/03/23 20:40 01/03/23 20:30 100 01/03/23 20:30 01/03/23 20:27 01/03/23 20:27 01/03/23 20:24 01/03/23 20:24 01/03/23 20:22 01/03/23 20:22 01/03/23 20:21 01/03/23 20:21 01/03/23 20:20 01/03/23 20:18 01/03/23 20:18 01/03/23 20:16 01/03/23 20:16 01/03/23 20:14 01/03/23 20:14 01/03/23 20:12 01/03/23 20:12 01/03/23 20:10 01/03/23 20:10 01/03/23 20:08 01/03/23 20:08 01/03/23 20:06 01/03/23 20:06 01/03/23 20:04 01/03/23 20:04 01/03/23 20:02 01/03/23 19:30 BiPAP 01/03/23 19:24 01/03/23 19:24 01/03/23 19:22 01/03/23 19:22 01/03/23 19:20 01/03/23 19:20 01/03/23 19:18 01/03/23 19:18 01/03/23 19:16 01/03/23 19:16 01/03/23 19:13 01/03/23 19:13 Laboratory Results Short CBC 01/04/23 Range/Units 04:28 WBC 8.27 (4.8-10.8) K/ul Hgb 10.9 L (14.0-18.0) g/dl Hct 34.4 L (42.0-52.0) % Plt Count 163 (130-400) K/uL BMP 01/03/23 01/04/23 21:04 04:28 Sodium 143 141 Potassium 4.0 3.3 L Chloride 98 100 Carbon Dioxide 34 H 32 BUN 33 H 29 H Creatinine 1.80 H D 1.45 H D Glucose 111 H 103 H Calcium 9.2 8.8 Liver Function 01/03/23 Range/Units 21:04 Total Bilirubin 1.1 H D (0.2-1.0) mg/dl AST 12 L (13-39) U/L ALT 8 (7-52) U/L Alkaline Phosphatase 77 (34-104) U/L Albumin 3.4 (3.4-5.0) gm/dl Urine 01/03/23 Range/Units Unknown Urine Color Yellow Urine Appearance Cloudy A (Clear) Urine pH 5.0 (4.5-7.5) Ur Specific [place] 1.023 (1.000-1.030) Urine Protein Trace H (Negative) Urine Glucose (UA) Negative (Negative) Medications Administered Home Medications Medication Instructions Recorded Confirmed Last Taken albuterol sulfate 90 mcg/actuation 2 puff inhalation Q4 PRN Shortness 08/03/22 01/03/23 08/19/22 04:00 aerosol inhaler Of Breath Or Wheezing apixaban 2.5 mg tablet (Eliquis) 2.5 mg PO BID 08/03/22 01/03/23 11/29/22 aspirin 81 mg capsule 81 mg PO QAM 08/03/22 01/03/23 08/19/22 04:00 atorvastatin 20 mg tablet (Lipitor) 20 mg PO HS 08/03/22 01/03/23 08/18/22 21:00 calcium carbonate 600 mg-vitamin 1 tab PO QAM 08/03/22 01/03/23 08/18/22 21:00 D3 10 mcg (400 unit) tablet (Calcium 600 + D(3)) cyclosporine 0.05 % eye drops in a 1 drp ophthalmic (eye) Q12H PRN 08/03/22 01/03/23 Unknown dropperette (Restasis) Dry Eye(S) diltiazem HCl 180 mg 180 mg PO QAM 08/03/22 01/03/23 11/29/22 capsule,extended release 24 hr guaifenesin 600 mg tablet, 600 mg PO BID 08/03/22 01/03/23 08/19/22 04:00 extended release 12 hr (Mucinex) levothyroxine 75 mcg tablet 75 mcg PO QAM 08/03/22 01/03/23 11/30/22 metoprolol tartrate 25 mg tablet 25 mg PO BID 08/03/22 01/03/23 11/29/22 olanzapine 5 mg tablet (Zyprexa) 5 mg PO HS 08/03/22 01/03/23 11/29/22 ropinirole 1 mg tablet 1 mg PO HS 08/03/22 01/03/23 11/29/22 tamsulosin 0.4 mg capsule 0.4 mg PO QAM 08/03/22 01/03/23 08/19/22 04:00 cyclobenzaprine 5 mg tablet 5 mg PO TID 30 days #90 tabs 12/18/22 01/03/23 Unknown Naloxone 4mg/0.1ml 0 mg intranasal DIRECTED PRN 01/03/23 01/03/23 Unknown .opiod od acetaminophen 500 mg tablet 1,000 mg PO Q8 PRN pain 01/03/23 01/03/23 Unknown (Tylenol Extra Strength) docusate sodium 100 mg capsule 100 mg PO BID 01/03/23 01/03/23 Unknown escitalopram oxalate 10 mg tablet 20 mg PO DAILY 01/03/23 01/03/23 Unknown fluticasone furoate 100 1 inh inhalation DAILY 01/03/23 01/03/23 Unknown mcg-vilanterol 25 mcg/dose inhalation powder (Breo Ellipta) hydrocodone 5 mg-acetaminophen 325 1 tab PO Q6H PRN .Pain 4-10 01/03/23 01/03/23 Unknown mg tablet magnesium oxide 400 mg PO DAILY 01/03/23 01/03/23 Unknown mirtazapine 15 mg tablet 30 mg PO HS 01/03/23 01/03/23 Unknown ondansetron HCl 4 mg tablet 4 mg PO Q4 PRN Nausea 01/03/23 01/03/23 Unknown pantoprazole 40 mg tablet,delayed 40 mg PO BID 01/03/23 01/03/23 Unknown release (Protonix) polyethylene glycol 3350 17 gram 17 g PO DAILY PRN Constipation 01/03/23 01/03/23 Unknown oral powder packet (Miralax) potassium chloride 20 mEq 20 meq PO DAILY 01/03/23 01/03/23 Unknown tablet,extended release pregabalin 100 mg capsule (Lyrica) 100 mg PO TID 01/03/23 01/03/23 Unknown sennosides 8.6 mg-docusate sodium 1 tab-cap PO DAILY PRN Constipation 01/03/23 01/03/23 Unknown 50 mg tablet (Senokot-S) sodium chloride 0.9 % 100 ml IV DIRECTED 01/03/23 01/03/23 Unknown sodium chloride 3.5 % for 4 ml inhalation BID 01/03/23 01/03/23 Unknown nebulization (Hyper-Ck) Active Medications Generic Name Dose Route Start Last Admin Trade Name Freq PRN Reason Stop Dose Admin Fentanyl Citrate 50 mcg 01/03/23 19:19 01/03/23 19:40 Fentanyl Bolus From Bag IV 01/17/23 19:18 50 mcg Q60M PRN Administration Pain or Agitation Piperacillin Sod/Tazobactam 100 mls @ 25 mls/hr 01/03/23 08:00 01/04/23 04:40 Sod 4.5 gm/ Dextrose IV 01/10/23 07:59 Infused Q8H IRMA Infusion Protocol Heparin Sodium/Dextrose 25,000 units in 500 mls @ 20 mls/hr 01/03/23 17:00 01/04/23 07:21 Heparin Sodium/Dextrose IV 02/02/23 16:59 1,000 units/hr .Q24H IRMA 20 mls/hr Titration Protocol 1,000 UNITS/HR Acetaminophen 1,000 mg in 100 mls @ 400 mls/hr 01/03/23 16:57 01/04/23 00:26 Ofirmev IV 01/06/23 16:56 Infused Q8H PRN Infusion Pain Propofol 1,000 mg in 100 mls @ 12.096 mls/hr 01/03/23 19:30 01/04/23 07:25 Diprivan IV 01/06/23 19:29 20 mcg/kg/min .Q8H17M IRMA 12.1 mls/hr Administration Protocol 20 MCG/KG/MIN Fentanyl Citrate 2,500 mcg in 250 mls @ 7.5 mls/hr 01/03/23 19:30 01/04/23 07:21 Fentanyl Citrate IV 01/17/23 19:29 50 mcg/hr .[id number] IRMA 5 mls/hr Titration Protocol 75 MCG/HR Norepinephrine Bitartrate 4 mg in 250 mls @ 11.34 mls/hr 01/03/23 19:30 01/04/23 07:21 Levophed/D5w IV 02/02/23 19:29 0.03 mcg/kg/min .Q22H3M IRMA 11.3 mls/hr Titration Protocol 0.03 MCG/KG/MIN Magnesium Sulfate/Dextrose 1 gm in 100 mls @ 50 mls/hr 01/04/23 06:15 01/04/23 06:18 Magnesium Sulfate / D5w IV 01/04/23 10:14 50 mls/hr Q2H IRMA Administration Potassium Chloride 20 meq in 100 mls @ 50 mls/hr 01/04/23 06:15 01/04/23 06:28 K Florentin / Wtr IV 01/04/23 14:14 50 mls/hr Q2H IRMA Administration Metoprolol Tartrate 5 mg 01/03/23 13:00 01/04/23 04:11 Metoprolol Tartrate 1 Mg/Ml Vial IV 02/02/23 12:59 Not Given Q4 IRMA Miscellaneous 1 each 01/04/23 06:00 01/04/23 06:14 Icu Electrolyte Replacement Protocol N/A 01/11/23 05:59 1 each BID@06,18 IRMA Administration Protocol (1) Aspiration into airway Encounter type: initial encounter Qualified Code(s): T17.908A - Unspecified foreign body in respiratory tract, part unspecified causing other injury, initial encounter
--- NOTE | 2023-01-04 08:03 | XRay Report ---
SINGLE VIEW CHEST CLINICAL HISTORY: Respiratory failure. Central venous catheter placement. FINDINGS: An AP, portable, semierect chest radiograph is compared to study performed earlier the same day 01/03/2023. The examination is degraded by portable technique, apical lordotic positioning, and patient rotation. A single lead cardiac pacemaker is unchanged in position. Endotracheal and enteric tubes are unchanged in position. The tip of the enteric tube projects over the distal esophagus. A l eft subclavian central venous catheter has been placed. The tip of the catheter projects over the SVC . The heart is enlarged noting atherosclerotic calcification of the thoracic aorta. The pulmonary vas culature is noncongested. Chronic interstitial thickening similar to previous. There are low lung vol umes with bibasilar scarring/atelectasis and elevation of the right hemidiaphragm. No airspace consol idation or large pleural effusion is identified. No pneumothorax is seen. The skeletal structures are osteopenic. The bony thorax is grossly intact. Fusion hardware is noted in the lumbar spine. IMPRESSION: 1. A left subclavian central venous catheter has been placed. No pneumothorax is identified post proc edure. 2. The tip of the enteric tube projects over the distal esophagus. This should be advanced. 3. Cardiomegaly and cardiac pacemaker without radiographic evidence of congestive failure. 4. Low lung volumes with bibasilar atelectasis. ACT 112: Negative or not required by law. Electronically signed by: Paramjit Hitchcock M.D. 01/04/2023 8:01 AM
--- NOTE | 2023-01-04 08:24 | Critical Care Progress Note ---
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 He is now intubated and on the ventilator due to aspiration into the lower respiratory tree. Recommendations: Neurologic Continue sedation with propofol and as needed fentanyl Continue outpatient Zyprexa Respiratory: -- Vent dependent respiratory failure Secondary to aspiration pneumonia along with airway protection Continue with broad-spectrum antibiotic Continue with ventilatory support Keep RASS -1 Cardiovascular: --Atrial fibrillation with rapid ventricular response On apixaban at home Continue with heparin drip while in the hospital -- Hypotension Multifactorial Sedation as well as sepsis Vasopressor support to keep MAP greater than 65 ID -- Suspect aspiration pneumonia Continue with broad-spectrum antibiotic Procalcitonin negative Nasal MRSA positive, Continue with vancomycin for 48 hours Follow bronc cultures GI: -- Severe achalasia with esophageal stricture GI on board Keep the patient n.p.o. Endocrine: ICU hypoglycemia protocol Heme-onc: --Mild anemia Monitor H&H Renal: -- NICOLÁS Likely prerenal Monitor BUN/creatinine Avoid nephrotoxic medications Strict ins and outs Baseline creatinine appears to be 1.0-1.1, currently 1.49. --Prophylaxis VTE: Heparin drip GI: Pantoprazole Lines: Right radial, left subclavian, peripheral Diet: N.p.o. Plan: In/out: +361, urine output 1350 Will discontinue Levophed and changed to phenylephrine to keep MAP greater than 65 Continue with metoprolol IV 2 for rate control Potassium, phosphorus as well as magnesium being replaced. Continue with vancomycin for 48 hours, continue with Zosyn for at least 7 days while awaiting bronc cultures. Given the significant food bolus in the esophagus, EGD would be recommended prior to the trial of extubation as patient will be high risk for aspiration otherwise. Case was discussed with GI I have personally spent 42 minutes of critical care time in the direct management of this patient. This is a life/limb threatening event. This includes time spent evaluating patient, direct bedside care, chart review, placing orders, interpretation of diagnostic studies, discussion with consultants, patient, and family members, as well as other required patient management activities. This time is exclusive of all separately billable procedures, and teaching time and separate from and in addition to any other critical care service time. Please note the above document was generated using voice recognition software. It may contain grammatical, syntax or spelling errors. Admission and Anticipated Discharge Date Admission Date: January 03, 2023 Subjective Patient seen and examined at bedside. No acute distress, no adverse events overnight He was on 50 of fentanyl, 20 of propofol at time of examination. He was breathing with the vent He was also on Levophed 0.03. Heart rate was in the 110s. Has been afebrile Review of Systems 2 Review of Systems: Unobtainable due to endotracheal tube Physical Exam 2 Physical Exam: Constitutional: No acute distress HEENT: EOMI, PERRLA Respiratory system: Decreased air entry bilaterally, no wheeze, no rhonchi, mild crackles bilateral lower lobes CVS: S1-S2 positive, no murmurs or gallops Abdomen: Soft, nontender, nondistended, positive bowel sounds x4 Extremities: +2 pulses bilaterally radialis/ dorsalis pedis, no cyanosis, no edema Neuro: RASS -2, breathing with the vent, positive pupillary and corneal Psych: Unable to assess G/U: Positive Gilman Skin: no rashes, warm and dry Lymphatic: no cervical or axillary lymphadenopathy Results & Data Results & Data Vital Signs (Past 12 Hours) Vital Signs Temp Pulse Pulse Resp BP BP Pulse Ox 01/04/23 07:02 102 H 12 94 01/04/23 05:52 36.7 C 01/04/23 05:48 01/04/23 05:35 36.8 C 94 H 18 144/67 H 92 01/04/23 05:30 36.9 C 90 16 91 01/04/23 05:01 36.9 C 95 H 16 01/04/23 05:01 81/67 L 01/04/23 05:00 36.9 C 95 H 15 91 01/04/23 04:35 95 H 16 95 01/04/23 04:30 36.9 C 99 H 16 89 L 01/04/23 04:00 36.8 C 105 H 16 95 01/04/23 04:00 153/93 H 01/04/23 03:36 36.3 C L 102 H 16 94 01/04/23 03:30 36.8 C 93 H 16 94 01/04/23 03:20 36.7 C 110 H 16 92 01/04/23 03:10 36.7 C 103 H 16 94 01/04/23 03:00 123/77 01/04/23 03:00 36.7 C 111 H 16 94 01/04/23 02:50 36.7 C 104 H 16 94 01/04/23 02:40 36.7 C 115 H 16 94 01/04/23 02:35 96 H 01/04/23 02:30 36.7 C 105 H 16 93 01/04/23 02:26 36.6 C 104 H 20 125/81 95 01/04/23 02:20 36.7 C 109 H 16 94 01/04/23 02:10 36.7 C 103 H 16 94 01/04/23 02:00 125/81 01/04/23 02:00 36.7 C 99 H 16 95 01/04/23 01:50 36.7 C 106 H 16 95 01/04/23 01:40 36.7 C 101 H 16 95 01/04/23 01:30 36.7 C 98 H 16 95 01/04/23 01:20 36.7 C 104 H 16 95 01/04/23 01:10 36.7 C 101 H 16 95 01/04/23 01:00 36.7 C 100 H 16 95 01/04/23 01:00 118/72 01/04/23 00:50 36.7 C 105 H 16 95 01/04/23 00:40 36.7 C 99 H 16 95 01/04/23 00:38 36.7 C 101 H 16 95 01/04/23 00:38 88/55 L 01/04/23 00:36 36.7 C 95 H 16 95 01/04/23 00:36 85/62 L 01/04/23 00:34 36.7 C 98 H 16 95 01/04/23 00:34 86/56 L 01/04/23 00:32 76/54 L 01/04/23 00:32 36.7 C 114 H 16 95 01/04/23 00:30 85/61 L 01/04/23 00:30 36.7 C 105 H 16 94 11/27/23 00:28 86/57 L 01/04/23 00:28 36.7 C 104 H 16 95 01/04/23 00:26 36.7 C 109 H 16 95 01/04/23 00:26 97/66 L 01/04/23 00:24 36.7 C 104 H 16 95 01/04/23 00:24 103/74 01/04/23 00:22 36.6 C 99 H 16 95 01/04/23 00:22 111/74 01/04/23 00:20 140/88 01/04/23 00:20 36.6 C 101 H 16 95 01/04/23 00:18 142/93 H 01/04/23 00:18 36.6 C 104 H 16 95 01/04/23 00:16 36.6 C 103 H 16 96 01/04/23 00:16 143/91 H 01/04/23 00:14 148/94 H 01/04/23 00:14 36.6 C 96 H 16 96 01/04/23 00:12 152/98 H 01/04/23 00:12 36.6 C 110 H 16 95 01/04/23 00:11 36.6 C 107 H 16 01/04/23 00:11 150/95 H 01/04/23 00:10 36.6 C 106 H 16 93 01/04/23 00:08 115/86 01/04/23 00:08 36.6 C 108 H 16 95 01/04/23 00:06 106/78 01/04/23 00:06 36.6 C 113 H 16 95 01/04/23 00:04 107/76 01/04/23 00:04 36.6 C 109 H 16 95 01/03/23 23:40 101 H 98/68 L 01/03/23 22:41 101 H 16 93 01/03/23 21:53 36.6 C 104 H 16 93 01/03/23 21:53 134/102 H 01/03/23 21:50 50/34 L 01/03/23 21:50 36.6 C 91 H 16 01/03/23 21:45 36.7 C 90 16 93 01/03/23 21:45 123/91 01/03/23 21:41 103/72 01/03/23 21:41 36.7 C 100 H 16 94 01/03/23 21:40 36.7 C 98 H 16 95 01/03/23 21:30 36.8 C 91 H 18 100 01/03/23 21:30 120/76 01/03/23 21:20 36.9 C 100 H 18 100 01/03/23 21:15 36.9 C 101 H 18 100 01/03/23 21:10 99/65 L 01/03/23 21:10 36.9 C 95 H 18 100 01/03/23 21:00 37.0 C 97 H 18 99 01/03/23 20:57 110/79 01/03/23 20:57 37.0 C 97 H 18 96 01/03/23 20:50 37.0 C 107 H 18 100 01/03/23 20:46 154/100 H 01/03/23 20:46 37.1 C 100 H 22 100 01/03/23 20:40 37.2 C 94 H 19 100 01/03/23 20:30 104 H 18 100 01/03/23 20:30 37.3 C 108 H 18 100 01/03/23 20:27 118/80 01/03/23 20:27 37.3 C 107 H 18 98 01/03/23 20:24 92/63 L 01/03/23 20:24 37.4 C 106 H 18 100 Pulse Ox O2 Del Method O2 Del Method FiO2 01/04/23 07:02 40 01/04/23 05:52 01/04/23 05:48 92 Mechanical Vent 01/04/23 05:35 Mechanical Vent 01/04/23 05:30 01/04/23 05:01 01/04/23 05:01 01/04/23 05:00 01/04/23 04:35 40 01/04/23 04:30 01/04/23 04:00 01/04/23 04:00 01/04/23 03:36 Mechanical Vent 01/04/23 03:30 01/04/23 03:20 01/04/23 03:10 01/04/23 03:00 01/04/23 03:00 01/04/23 02:50 01/04/23 02:40 01/04/23 02:35 01/04/23 02:30 01/04/23 02:26 Mechanical Vent 01/04/23 02:20 01/04/23 02:10 01/04/23 02:00 01/04/23 02:00 01/04/23 01:50 01/04/23 01:40 01/04/23 01:30 01/04/23 01:20 01/04/23 01:10 01/04/23 01:00 01/04/23 01:00 01/04/23 00:50 01/04/23 00:40 01/04/23 00:38 01/04/23 00:38 01/04/23 00:36 01/04/23 00:36 01/04/23 00:34 01/04/23 00:34 01/04/23 00:32 01/04/23 00:32 01/04/23 00:30 01/04/23 00:30 01/04/23 00:28 01/04/23 00:28 01/04/23 00:26 01/04/23 00:26 01/04/23 00:24 01/04/23 00:24 01/04/23 00:22 01/04/23 00:22 01/04/23 00:20 01/04/23 00:20 01/04/23 00:18 01/04/23 00:18 01/04/23 00:16 01/04/23 00:16 01/04/23 00:14 01/04/23 00:14 01/04/23 00:12 01/04/23 00:12 01/04/23 00:11 01/04/23 00:11 01/04/23 00:01/04/23 00:08 01/04/23 00:08 01/04/23 00:06 01/04/23 00:06 01/04/23 00:04 01/04/23 00:04 01/03/23 23:40 01/03/23 22:41 40 01/03/23 21:53 01/03/23 21:53 01/03/23 21:50 01/03/23 21:50 01/03/23 21:45 01/03/23 21:45 01/03/23 21:41 01/03/23 21:41 01/03/23 21:40 01/03/23 21:30 01/03/23 21:30 01/03/23 21:20 01/03/23 21:15 01/03/23 21:10 01/03/23 21:10 01/03/23 21:00 01/03/23 20:57 01/03/23 20:57 01/03/23 20:50 01/03/23 20:46 01/03/23 20:46 01/03/23 20:40 01/03/23 20:30 100 01/03/23 20:30 01/03/23 20:27 01/03/23 20:27 01/03/23 20:24 01/03/23 20:24 Laboratory Results 01/04/23 04:28 01/04/23 04:28 Coding Level of Care Code 24278 CRITICAL CARE 1ST 30-74M Diagnoses Aspiration into airway, initial encounter T17.908A Encounter type: initial encounter Acute on chronic respiratory failure with hypoxia and hypercapnia J96.21; J96.22 Acute on chronic diastolic (congestive) heart failure I50.33 Atrial fibrillation with RVR I48.91 Food impaction of esophagus T18.128A; W44.F3XA (1) Aspiration into airway Encounter type: initial encounter Qualified Code(s): T17.908A - Unspecified foreign body in respiratory tract, part unspecified causing other injury, initial encounter
[2023-01-04] MEDS: ICU Protocol for HYPERglycemia SCH ×3 (08:28→17:13)
[2023-01-04] MEDS ORDERED: LEVOTHYROXINE SODIUM IV SCH (09:00)
[2023-01-04] MEDS ORDERED: STAT IV Infusion **Titration per Protocol STA (09:40)
[2023-01-04] MEDS ORDERED: PHENYLEPHRINE/NSS 25 MG/250 ML BAG IV SCH (09:45)
[2023-01-04] MEDS: NOREPINEPHRINE/D5W 4 MG/250 ML PLCT IV SCH (10:14)
--- NOTE | 2023-01-04 10:15 | XRay Report ---
XR chest 1V portable CLINICAL HISTORY: Respiratory failure. COMPARISON STUDY: Chest CT and chest radiograph January 03, 2023. FINDINGS: Tip of the endotracheal tube is 4.3 cm above the davina. Left subclavian central line is in place. There is no pneumothorax. Tip of nasogastric tube projects over the distal esophagus. There i s no pleural effusion. Bibasilar airspace opacities persist. Cardiomegaly is again noted. A right sub clavian pacer is in place. Postoperative findings within the spine are incidentally noted. IMPRESSION: 1. Satisfactory positioning of the endotracheal tube. 2. Tip of nasogastric tube projects over the distal esophagus. If possible, the tube should be advanc ed. 3. Persistent bibasilar opacities which favor pneumonia or aspiration pneumonitis. ACT 112: Negative or not required by law. Electronically signed by: Alex Ness M.D. 01/04/2023 10:14 AM
[2023-01-04] MEDS ORDERED: VANCOMYCIN CONSULT ACTIVE PRN (10:42)
[2023-01-04] MEDS ORDERED: VANCOMYCIN HCL 2,000 MG in SODIUM CHLORIDE 0.9% 500 ML IV ONE (10:45)
[2023-01-04] MEDS ORDERED: PANTOprazole 40 MG in SYRINGE 0 ML IV SCH (11:00)
--- NOTE | 2023-01-04 11:46 | Cardiology Progress Note ---
Date of Service January 04, 2023 Assessment & Plan (1) Aspiration into airway: (2) Food impaction of esophagus: (3) Acute on chronic respiratory failure with hypoxia and hypercapnia: (4) Acute on chronic diastolic (congestive) heart failure: (5) Atrial fibrillation with RVR: (6) Chronic kidney disease (CKD), stage III (moderate): Plan 82-year-old male presents with aspiration, achalasia, impacted food bolus, with acute respiratory failure, and mild volume overload secondary to IV fluids administered at group home. Volume status improved with diuretic therapy. Echocardiogram demonstrating hyperdynamic left ventricular function suggesting possible mild intravascular volume depletion. Hold diuretic therapy at this time. Patient is not chronically treated with diuretic therapy in the outpatient setting. Adequately oxygenated on ventilator. Patient chronically wears 4 L nasal cannula due to history of interstitial pulmonary disease. Heart rate currently within acceptable range with 2 doses of IV digoxin and scheduled Lopressor IV. Will add IV digoxin 125 mcg daily at this time. Continue IV heparin. Patient may proceed with endoscopy from a cardiovascular perspective. I spent a total of 40 minutes on the date of service in preparation, delivery, and documentation of the care provided to this patient, excluding any time spent in the performance of separately billed services. Admission and Anticipated Discharge Date Admission Date: January 03, 2023 Subjective Patient seen and examined at the bedside in the intensive care unit. Intubated and sedated. Telemetry reveals atrial fibrillation in the 80s. Received 2 doses of IV digoxin yesterday. Currently treated with IV Lopressor [id number]. Vasopressors currently discontinued. Review of Systems Review of Systems: Unobtainable due to endotracheal tube Physical Exam Constitutional: well nourished and + obese Respiratory: no retractions Auscultation: + diminished lung sounds (Bilateral), + crackles (Bilateral) and + wheezes (Mild expiratory) Cardiovascular: Rate/Rhythm: + tachycardic and + irregularly irregular Heart Sounds: normal S1 and normal S2 Vessels: radial pulses present; no JVD and no carotid bruit Extremities: no edema Gastrointestinal (Abdomen): Inspection/Auscultation: abdomen normal to inspection; abdomen not distended Percussion/Palpation: abdomen soft; abdomen nontender, no guarding and abdomen not rigid Neurologic: CN's II-XI intact bilaterally and moves all extremities; no focal motor deficits Results & Data Vital Signs (Past 12 Hours) Vital Signs Temp Pulse Pulse Resp BP BP Pulse Ox 01/04/23 10:46 96 H 12 93 01/04/23 09:28 92 H 122/58 L 01/04/23 08:49 112 H 117/52 L 01/04/23 07:02 102 H 12 94 01/04/23 05:52 36.7 C 01/04/23 05:48 01/04/23 05:35 36.8 C 94 H 18 144/67 H 92 01/04/23 05:30 36.9 C 90 16 91 01/04/23 05:01 36.9 C 95 H 16 01/04/23 05:01 81/67 L 01/04/23 05:00 36.9 C 95 H 15 91 01/04/23 04:35 95 H 16 95 01/04/23 04:30 36.9 C 99 H 16 89 L 01/04/23 04:00 36.8 C 105 H 16 95 01/04/23 04:00 153/93 H 01/04/23 03:36 36.3 C L 102 H 16 94 01/04/23 03:30 36.8 C 93 H 16 94 01/04/23 03:20 36.7 C 110 H 16 92 01/04/23 03:10 36.7 C 103 H 16 94 01/04/23 03:00 123/77 01/04/23 03:00 36.7 C 111 H 16 94 01/04/23 02:50 36.7 C 104 H 16 94 01/04/23 02:40 36.7 C 115 H 16 94 01/04/23 02:35 96 H 01/04/23 02:30 36.7 C 105 H 16 93 01/04/23 02:26 36.6 C 104 H 20 125/81 95 01/04/23 02:20 36.7 C 109 H 16 94 01/04/23 02:10 36.7 C 103 H 16 94 01/04/23 02:00 125/81 01/04/23 02:00 36.7 C 99 H 16 95 01/04/23 01:50 36.7 C 106 H 16 95 01/04/23 01:40 36.7 C 101 H 16 95 01/04/23 01:30 36.7 C 98 H 16 95 01/04/23 01:20 36.7 C 104 H 16 95 01/04/23 01:10 36.7 C 101 H 16 95 01/04/23 01:00 36.7 C 100 H 16 95 01/04/23 01:00 118/72 01/04/23 00:50 36.7 C 105 H 16 95 01/04/23 00:40 36.7 C 99 H 16 95 01/04/23 00:38 36.7 C 101 H 16 95 01/04/23 00:38 88/55 L 01/04/23 00:36 36.7 C 95 H 16 95 01/04/23 00:36 85/62 L 01/04/23 00:34 36.7 C 98 H 16 95 01/04/23 00:34 86/56 L 01/04/23 00:32 76/54 L 01/04/23 00:32 36.7 C 114 H 16 95 01/04/23 00:30 85/61 L 01/04/23 00:30 36.7 C 105 H 16 94 01/04/23 00:28 86/57 L 01/04/23 00:28 36.7 C 104 H 16 95 01/04/23 00:26 36.7 C 109 H 16 95 01/04/23 00:26 97/66 L 01/04/23 00:24 36.7 C 104 H 16 95 01/04/23 00:24 103/74 01/04/23 00:22 36.6 C 99 H 16 95 01/04/23 00:22 111/74 01/04/23 00:20 140/88 01/04/23 00:20 36.6 C 101 H 16 95 01/04/23 00:18 142/93 H 01/04/23 00:18 36.6 C 104 H 16 95 01/04/23 00:16 36.6 C 103 H 16 96 01/04/23 00:16 143/91 H 01/04/23 00:14 148/94 H 01/04/23 00:14 36.6 C 96 H 16 96 01/04/23 00:12 152/98 H 01/04/23 00:12 36.6 C 110 H 16 95 01/04/23 00:11 36.6 C 107 H 16 01/04/23 00:11 150/95 H 01/04/23 00:10 36.6 C 106 H 16 93 01/04/23 00:08 115/86 01/04/23 00:08 36.6 C 108 H 16 95 01/04/23 00:06 106/78 01/04/23 00:06 36.6 C 113 H 16 95 01/04/23 00:04 107/76 01/04/23 00:04 36.6 C 109 H 16 95 01/03/23 23:40 101 H 98/68 L Pulse Ox O2 Del Method O2 Del Method FiO2 01/04/23 10:46 40 01/04/23 09:28 01/04/23 08:49 01/04/23 07:02 40 01/04/23 05:52 01/04/23 05:48 92 Mechanical Vent 01/04/23 05:35 Mechanical Vent 01/04/23 05:30 01/04/23 05:01 01/04/23 05:01 01/04/23 05:00 01/04/23 04:35 40 01/04/23 04:30 01/04/23 04:00 01/04/23 04:00 01/04/23 03:36 Mechanical Vent 01/04/23 03:30 01/04/23 03:20 01/04/23 03:10 01/04/23 03:00 01/04/23 03:00 01/04/23 02:50 01/04/23 02:40 01/04/23 02:35 01/04/23 02:30 01/04/23 02:26 Mechanical Vent 01/04/23 02:20 01/04/23 02:10 01/04/23 02:00 01/04/23 02:00 01/04/23 01:50 01/04/23 01:40 01/04/23 01:30 01/04/23 01:20 01/04/23 01:10 01/04/23 01:00 01/04/23 01:00 01/04/23 00:50 01/04/23 00:40 01/04/23 00:38 01/04/23 00:38 01/04/23 00:36 01/04/23 00:36 01/04/23 00:34 01/04/23 00:34 01/04/23 00:32 01/04/23 00:32 01/04/23 00:30 01/04/23 00:30 01/04/23 00:28 01/04/23 00:28 01/04/23 00:26 01/04/23 00:26 01/04/23 00:24 01/04/23 00:24 01/04/23 00:22 01/04/23 00:22 01/04/23 00:20 01/04/23 00:20 01/04/23 00:18 01/04/23 00:18 01/04/23 00:16 01/04/23 00:16 01/04/23 00:14 01/04/23 00:14 01/04/23 00:12 01/04/23 00:12 01/04/23 00:11 01/04/23 00:11 01/04/23 00:10 01/04/23 00:08 01/04/23 00:08 01/04/23 00:06 01/04/23 00:06 01/04/23 00:04 01/04/23 00:04 01/03/23 23:40 (1) Aspiration into airway Encounter type: initial encounter Qualified Code(s): T17.908A - Unspecified foreign body in respiratory tract, part unspecified causing other injury, initial encounter (2) Food impaction of esophagus Encounter type: initial encounter Qualified Code(s): T18.128A - Food in esophagus causing other injury, initial encounter; W44.F3XA - Food entering into or through a natural orifice, initial encounter (6) Chronic kidney disease (CKD), stage III (moderate) Chronic kidney disease stage 3 subtype: stage 3b (GFR 30-44) Qualified Code( s): N18.32 - Chronic kidney disease, stage 3b
--- NOTE | 2023-01-04 12:12 | Pharmacy Report ---
Pharmacy PK ABX Note - Date of Service January 04, 2023 - Assessment and Plan Assessment 82 year old M receiving VANCOMYCIN/ZOSYN for treatment of aspiration pneumonia. MRSA nasal swab positive. Bronch with pin-point growth. Urine culture no growth, blood cultures negative at 24 hours. Vancomycin has been ordered for 48 hours and will need re-evaluated for extension beyond 48 hours. Plan Vancomycin * Loading dose: 2000 mg IV x 1 * Maintenance dose: 1250 mg IV every 24 hours * Regimen is predicted to achieve target AUC/JIM of 400-600 mg/L.hr * Random level to be ordered if continued >48 hours Pharmacy will continue to follow and will adjust dose/frequency as necessary. Thank you. Pharmacy has transitioned to AUC monitoring for vancomycin. AUC/JIM is the preferred PK/PD target and is associated with decreased risk of nephrotoxicity compared to traditional trough targets.
--- NOTE | 2023-01-04 13:40 | Gastroenterology Progress Note ---
Date of Service January 04, 2023 Assessment & Plan (1) Aspiration into airway: (2) Dysphagia: Plan Pneumonia, likely secondary to aspiration caused by achalasia as evidenced by pt symptoms (as reported by family) and CT w dilated esophagus. Tx pneumonia. Would keep NPO. As pt's clinical status continues to improve, will consider transfer to [place] for endo-flip (to measure pressures in the esophagus) and if achalasia is confirmed then POEM (per oral endoscopic myotomy). Admission and Anticipated Discharge Date Admission Date: January 03, 2023 Supervising Physician Co-Signing Physician Notes Attending attestation I have seen, examined this patient, and agree with the findings and above by our mid-level provider JHONNY Pike, with the following additions: Long discussion today at bedside with family, hospitalist, Dr. Lucia Admitted with PNA likely from aspiration reasons. Esophagus full of liquid/food particles on CT. Recently underwent EGD 2.5 wks ago without signs of obstruction but concerns of achalasia. Esophagus is dilated, family supports chronically worsened dysphagia of both liquids and solids but no acute issues until this aspiration. Unfortunately, given his respiratory status he has been intubated. Minimal vent settings and sats are 93%. D/W interventional endoscopy both here and locally, and in light of normal EGD but high suspicion a few weeks ago of achalasia, inpt eval with endo flip and pneumatic dilation and or mytomoy to be pursued. Priority now is iv abx, and treatment of pna. Therapy would be to lower risk of aspiration in future. Call with questions, and if EGD is desired here prior to Tx, happy to accommodate, preferably prior to extubation. Subjective 82 yr old male admitted w aspiration pneumonia, on vent. Spoke w family including , daughter, son-in-law and got hx from them. Pt began with symptoms of esophageal dysphagia (feeling like he can only eat a few bites at a time because food "won't go down." This began after spinal fusion L3-L4 L4-5 on 12/03. Has lost weight since surgery. Has been in rehab at [facility]. Was eating there, until transfered back here for respiratory failure - imaging on admission w pneumonia, currently on vent; vasopressors just DC'ed. EGD on 12/[address] Lucia who suspected Achalasia: minimal esophageal motility and tight lower esophageal sphincter; the esophagus was dilated. Review of Systems Review of Systems: Unable to obtain ROS from patient (intubated, vent, sedation). Physical Exam Constitutional: well developed, well nourished and + ill appearing mildly overweight. Results & Data Vital Signs (Past 12 Hours) Vital Signs Temp Pulse Pulse Resp BP BP Pulse Ox 01/04/23 13:26 93 H 158/63 H 01/04/23 12:35 01/04/23 12:30 01/04/23 12:00 37.3 C 96 H 12 92/60 L 96 01/04/23 11:00 37.3 C 87 12 93/71 L 88 L 01/04/23 10:47 37.4 C 105 H 12 93/61 L 01/04/23 10:46 96 H 12 93 01/04/23 10:00 37.3 C 96 H 12 131/112 H 94 01/04/23 09:28 92 H 122/58 L 01/04/23 09:00 37.2 C 107 H 12 103/60 94 01/04/23 08:49 112 H 117/52 L 01/04/23 08:00 37.1 C 111 H 12 93 01/04/23 07:02 102 H 12 94 01/04/23 07:00 37.0 C 108 H 12 95/67 L 94 01/04/23 06:45 37.0 C 106 H 12 174/104 H 95 01/04/23 05:52 36.7 C 01/04/23 05:48 01/04/23 05:35 36.8 C 94 H 18 144/67 H 92 01/04/23 05:30 36.9 C 90 16 91 01/04/23 05:01 36.9 C 95 H 16 01/04/23 05:01 81/67 L 01/04/23 05:00 36.9 C 95 H 15 91 01/04/23 04:35 95 H 16 95 01/04/23 04:30 36.9 C 99 H 16 89 L 01/04/23 04:00 36.8 C 105 H 16 95 01/04/23 04:00 153/93 H 01/04/23 03:36 36.3 C L 102 H 16 94 01/04/23 03:30 36.8 C 93 H 16 94 01/04/23 03:20 36.7 C 110 H 16 92 01/04/23 03:10 36.7 C 103 H 16 94 01/04/23 03:00 123/77 01/04/23 03:00 36.7 C 111 H 16 94 01/04/23 02:50 36.7 C 104 H 16 94 01/04/23 02:40 36.7 C 115 H 16 94 01/04/23 02:35 96 H 01/04/23 02:30 36.7 C 105 H 16 93 01/04/23 02:26 36.6 C 104 H 20 125/81 95 01/04/23 02:20 36.7 C 109 H 16 94 01/04/23 02:10 36.7 C 103 H 16 94 01/04/23 02:00 125/81 01/04/23 02:00 36.7 C 99 H 16 95 01/04/23 01:50 36.7 C 106 H 16 95 01/04/23 01:40 36.7 C 101 H 16 95 Pulse Ox O2 Del Method O2 Del Method FiO2 01/04/23 13:26 01/04/23 12:35 40 01/04/23 12:30 Mechanical Vent 40 01/04/23 12:00 Mechanical Vent 40 01/04/23 11:00 Mechanical Vent 40 01/04/23 10:47 01/04/23 10:46 40 01/04/23 10:00 Mechanical Vent 40 01/04/23 09:28 01/04/23 09:00 01/04/23 08:49 01/04/23 08:00 01/04/23 07:02 40 01/04/23 07:00 Mechanical Vent 40 01/04/23 06:45 Mechanical Vent 40 01/04/23 05:52 01/04/23 05:48 92 Mechanical Vent 01/04/23 05:35 Mechanical Vent 01/04/23 05:30 01/04/23 05:01 01/04/23 05:01 01/04/23 05:00 01/04/23 04:35 40 01/04/23 04:30 01/04/23 04:00 01/04/23 04:00 01/04/23 03:36 Mechanical Vent 01/04/23 03:30 01/04/23 03:20 01/04/23 03:10 01/04/23 03:00 01/04/23 03:00 01/04/23 02:50 01/04/23 02:40 01/04/23 02:35 01/04/23 02:30 01/04/23 02:26 Mechanical Vent 01/04/23 02:20 01/04/23 02:10 01/04/23 02:00 01/04/23 02:00 01/04/23 01:50 01/04/23 01:40 Laboratory Results WBC 8.27, Hb 10.9, Hct 34, Plts 63, PT 58, INR 2.1, Na 141, K 3.3 Cl 100, BUN 29, Cr 1.45, platelets 103. Diagnostic Findings Chest CT 01/03/23: 1. The esophagus is markedly dilated with heterogeneous, gas containing material and suggestion of a thickened esophageal wall, resulting in mass effect on the left atrium. Findings place patient at elevated aspiration risk. This may represent achalasia with or without superimposed esophagitis. 2. Multifocal airspace opacities are compatible with aspiration and/or pneumonia. (1) Aspiration into airway Encounter type: initial encounter Qualified Code(s): T17.908A - Unspecified foreign body in respiratory tract, part unspecified causing other injury, initial encounter (2) Dysphagia Dysphagia type: esophageal phase Qualified Code(s): R13.19 - Other dysphagia
--- NOTE | 2023-01-04 14:45 | Electroencephalogram ---
EEG Procedure Note Date of Service January 04, 2023 Start / End Times Start Time: 14:09 End Time: 14:29 Referring Physician Adelso Zeng History An 82-year-old male with aspiration pneumonia and acute hypoxic respiratory failure currently intubated. EEG performed for evaluation of epileptiform activity. Home Medication List Medication Instructions Recorded Confirmed Type albuterol sulfate 90 mcg/actuation 2 puff inhalation Q4 PRN Shortness 08/03/22 01/03/23 History aerosol inhaler Of Breath Or Wheezing apixaban 2.5 mg tablet (Eliquis) 2.5 mg PO BID 08/03/22 01/03/23 History aspirin 81 mg capsule 81 mg PO QAM 08/03/22 01/03/23 History atorvastatin 20 mg tablet (Lipitor) 20 mg PO HS 08/03/22 01/03/23 History calcium carbonate 600 mg-vitamin 1 tab PO QAM 08/03/22 01/03/23 History D3 10 mcg (400 unit) tablet (Calcium 600 + D(3)) cyclosporine 0.05 % eye drops in a 1 drp ophthalmic (eye) Q12H PRN 08/03/22 01/03/23 History dropperette (Restasis) Dry Eye(S) diltiazem HCl 180 mg 180 mg PO QAM 08/03/22 01/03/23 History capsule,extended release 24 hr guaifenesin 600 mg tablet, 600 mg PO BID 08/03/22 01/03/23 History extended release 12 hr (Mucinex) levothyroxine 75 mcg tablet 75 mcg PO QAM 08/03/22 01/03/23 History metoprolol tartrate 25 mg tablet 25 mg PO BID 08/03/22 01/03/23 History olanzapine 5 mg tablet (Zyprexa) 5 mg PO HS 08/03/22 01/03/23 History ropinirole 1 mg tablet 1 mg PO HS 08/03/22 01/03/23 History tamsulosin 0.4 mg capsule 0.4 mg PO QAM 08/03/22 01/03/23 History cyclobenzaprine 5 mg tablet 5 mg PO TID 30 days #90 tabs 12/18/22 01/03/23 Rx Naloxone 4mg/0.1ml 0 mg intranasal DIRECTED PRN 01/03/23 01/03/23 History .opiod od acetaminophen 500 mg tablet 1,000 mg PO Q8 PRN pain 01/03/23 01/03/23 History (Tylenol Extra Strength) docusate sodium 100 mg capsule 100 mg PO BID 01/03/23 01/03/23 History escitalopram oxalate 10 mg tablet 20 mg PO DAILY 01/03/23 01/03/23 History fluticasone furoate 100 1 inh inhalation DAILY 01/03/23 01/03/23 History mcg-vilanterol 25 mcg/dose inhalation powder (Breo Ellipta) hydrocodone 5 mg-acetaminophen 325 1 tab PO Q6H PRN .Pain 4-10 01/03/23 01/03/23 History mg tablet magnesium oxide 400 mg PO DAILY 01/03/23 01/03/23 History mirtazapine 15 mg tablet 30 mg PO HS 01/03/23 01/03/23 History ondansetron HCl 4 mg tablet 4 mg PO Q4 PRN Nausea 01/03/23 01/03/23 History pantoprazole 40 mg tablet,delayed 40 mg PO BID 01/03/23 01/03/23 History release (Protonix) polyethylene glycol 3350 17 gram 17 g PO DAILY PRN Constipation 01/03/23 01/03/23 History oral powder packet (Miralax) potassium chloride 20 mEq 20 meq PO DAILY 01/03/23 01/03/23 History tablet,extended release pregabalin 100 mg capsule (Lyrica) 100 mg PO TID 01/03/23 01/03/23 History sennosides 8.6 mg-docusate sodium 1 tab-cap PO DAILY PRN Constipation 01/03/23 01/03/23 History 50 mg tablet (Senokot-S) sodium chloride 0.9 % 100 ml IV DIRECTED 01/03/23 01/03/23 History sodium chloride 3.5 % for 4 ml inhalation BID 01/03/23 01/03/23 History nebulization (Hyper-Ck) Icu Electrolyte Replacement [Icu 1 ea Not Applicable BID@06,18 ##0 01/04/23 Rx Electrolyte Replacement Protocol] Icu Protocol For Hyperglycemia 1 ea Not Applicable ACHS ##0 01/04/23 Rx Vancomycin Consult Active [Consult] 1 ea Not Applicable UD PRN ##0 01/04/23 Rx fentanyl citrate (PF) 50 mcg/mL 50 mcg IV Q60M PRN #0 mL 01/04/23 Rx injection solution metoprolol tartrate 5 mg/5 mL 5 mg (5 mL) IV Q4 #0 mL 01/04/23 Rx intravenous solution olanzapine 10 mg intramuscular 5 mg IM HS PRN #0 ea 01/04/23 Rx solution propofol 10 mg/mL intravenous 20 mg (2 mL) IV Q5M PRN #0 mL 01/04/23 Rx emulsion (Diprivan) Inpatient Medication List Fentanyl Citrate (Fentanyl Bolus From Bag) 50 mcg IV Q60M PRN PRN Reason: Pain or Agitation Stop: 01/17/23 19:18 Last Admin: 01/03/23 19:40 Dose: 50 mcg Documented By: AMW Co-signed By: CHRISTINA Piperacillin Sod/Tazobactam (Sod 4.5 gm/ Dextrose) 100 mls @ 25 mls/hr IV Q8H [facility]; Protocol Stop: 01/10/23 07:59 Last Infusion: 01/04/23 12:22 Dose: Infused Documented By: Admin: 01/04/23 08:22 Dose: 25 mls/hr Documented By: Infusion: 01/04/23 04:40 Dose: Infused Documented By: Admin: 01/04/23 00:38 Dose: 25 mls/hr Documented By: Infusion: 01/03/23 20:17 Dose: Infused Documented By: Admin: 01/03/23 16:17 Dose: 25 mls/hr Documented By: Infusion: 01/03/23 12:46 Dose: Infused Documented By: Admin: 01/03/23 09:19 Dose: 25 mls/hr Documented By: CPB Levothyroxine Sodium 32.5 mcg/ (Syringe) 1.625 mls @ 2 mls/min IV Q72H [facility]; Protocol Stop: 02/03/23 08:59 Last Admin: 01/04/23 09:16 Dose: 2 mls/min Documented By: SHALINIK Heparin Sodium/Dextrose (Heparin Sodium/Dextrose) 25,000 units in 500 mls @ 20 mls/hr IV .Q24H [facility]; Protocol Stop: 02/02/23 16:59 Last Titration: 01/04/23 07:21 Dose: 1,000 units/hr, 20 mls/hr Documented By: DREW Co-signed By: LMM Titration: 01/04/23 03:40 Dose: 1,000 units/hr, 20 mls/hr Documented By: LMM Co-signed By: ISRAELW Admin: 01/03/23 18:11 Dose: 1,000 units/hr, 20 mls/hr Documented By: CPB Co-signed By: BERE Acetaminophen (Ofirmev) 1,000 mg in 100 mls @ 400 mls/hr IV Q8H PRN PRN Reason: Pain Stop: 01/06/23 16:56 Last Infusion: 01/04/23 00:26 Dose: Infused Documented By: Admin: 01/04/23 00:11 Dose: 400 mls/hr Documented By: LMM Propofol (Diprivan) 1,000 mg in 100 mls @ 6.048 mls/hr IV .[id number] [facility]; Protocol Stop: 01/06/23 19:29 Last Admin: 01/04/23 14:25 Dose: Not Given Documented By: Titration: 01/04/23 13:32 Dose: 10 mcg/kg/min, 6 mls/hr Documented By: Titration: 01/04/23 08:53 Dose: 15 mcg/kg/min, 9.1 mls/hr Documented By: Admin: 01/04/23 07:25 Dose: 20 mcg/kg/min, 12.1 mls/hr Documented By: JB Co-signed By: HLK Titration: 01/04/23 07:21 Dose: Infused Documented By: HLK Co-signed By: LMM Titration: 01/04/23 07:21 Dose: Infused Documented By: HLK Co-signed By: LMM Admin: 01/04/23 04:13 Dose: Not Given Documented By: Titration: 01/04/23 03:40 Dose: 20 mcg/kg/min, 12.1 mls/hr Documented By: Admin: 01/04/23 00:34 Dose: 30 mcg/kg/min, 18.1 mls/hr Documented By: LMM Co-signed By: TP Titration: 01/04/23 00:34 Dose: Infused Documented By: LMM Co-signed By: TP Titration: 01/03/23 19:40 Dose: 30 mcg/kg/min, 18.1 mls/hr Documented By: Admin: 01/03/23 19:20 Dose: 20 mcg/kg/min, 12.1 mls/hr Documented By: NATALIE Co-signed By: MORA Fentanyl Citrate (Fentanyl Citrate) 2,500 mcg in 250 mls @ 5 mls/hr IV .Q50H [facility]; Protocol Stop: 01/17/23 19:29 Last Titration: 01/04/23 10:11 Dose: 50 mcg/hr, 5 mls/hr Documented By: DREW Co-signed By: ES Titration: 01/04/23 08:53 Dose: 25 mcg/hr, 2.5 mls/hr Documented By: SHALINIK Co-signed By: CAM Titration: 01/04/23 07:21 Dose: 50 mcg/hr, 5 mls/hr Documented By: DREW Co-signed By: LMM Titration: 01/04/23 03:40 Dose: 50 mcg/hr, 5 mls/hr Documented By: LMM Co-signed By: AMW Titration: 01/04/23 00:11 Dose: 50 mcg/hr, 5 mls/hr Documented By: LMM Co-signed By: AMW Titration: 01/03/23 20:07 Dose: 75 mcg/hr, 7.5 mls/hr Documented By: NATALEI Co-signed By: LMM Admin: 01/03/23 19:20 Dose: 25 mcg/hr, 2.5 mls/hr Documented By: NATALIE Co-signed By: MORA Pantoprazole Sodium 40 mg/ (Syringe) 10 mls @ 5 mls/min IV DAILY@1100 [facility] Stop: 02/03/23 10:59 Last Admin: 01/04/23 13:25 Dose: 5 mls/min Documented By: DREW Phenylephrine HCl (Phenylephrine/Nss) 25 mg in 250 mls @ 25.71 mls/hr IV .Q9H44M [facility]; Protocol Stop: 02/03/23 09:44 Last Titration: 01/04/23 10:10 Dose: 0 mcg/kg/min, 0 mls/hr Documented By: DREW Co-signed By: ES Admin: 01/04/23 09:47 Dose: 0.5 mcg/kg/min, 25.7 mls/hr Documented By: DREW Co-signed By: ES Metoprolol Tartrate (Metoprolol Tartrate 1 Mg/Ml Vial) 5 mg IV Q4 [facility] Stop: 02/02/23 12:59 Last Admin: 01/04/23 13:26 Dose: 5 mg Documented By: Admin: 01/04/23 08:49 Dose: 5 mg Documented By: Admin: 01/04/23 04:11 Dose: Not Given Documented By: Admin: 01/04/23 01:23 Dose: Not Given Documented By: Admin: 01/03/23 23:40 Dose: Not Given Documented By: Admin: 01/03/23 17:17 Dose: 5 mg Documented By: Admin: 01/03/23 13:06 Dose: 5 mg Documented By: CPB Miscellaneous (Icu Protocol For Hyperglycemia) 1 each N/A ACHS [facility] Stop: 01/06/23 07:29 Last Admin: 01/04/23 13:12 Dose: Not Given Documented By: Admin: 01/04/23 08:28 Dose: Not Given Documented By: HLK Miscellaneous (Icu Electrolyte Replacement Protocol) 1 each N/A BID@06,18 [facility]; Protocol Stop: 01/11/23 05:59 Last Admin: 01/04/23 06:14 Dose: 1 each Documented By: LMM Discontinued Medications Albuterol (Albut/Ipratrop 3mg/0.5mg Neb 3 Ml Vial) 3 ml NEB NOW STA; Protocol Stop: 01/02/23 23:17 Last Admin: 01/02/23 23:23 Dose: 3 ml Documented By: HMR Apixaban (Apixaban 2.5 Mg Tab) 2.5 mg PO BID [facility] Stop: 02/02/23 08:59 Last Admin: 01/03/23 10:17 Dose: Not Given Documented By: CPB Aspirin (Aspirin 81 Mg Ectab) 81 mg PO QAM [facility] Stop: 02/02/23 08:59 Last Admin: 01/03/23 10:18 Dose: Not Given Documented By: CPB Calcium/Vitamin D (Calcium 600mg + Vit D 400 Iu Tab) 1 tab PO QAM [facility] Stop: 02/02/23 08:59 Last Admin: 01/03/23 10:18 Dose: Not Given Documented By: CPB Cyclobenzaprine HCl (Cyclobenzaprine Hcl 5 Mg Tab) 5 mg PO TID [facility] Stop: 02/02/23 08:59 Last Admin: 01/03/23 13:32 Dose: Not Given Documented By: Admin: 01/03/23 10:18 Dose: Not Given Documented By: CPB Digoxin (Digoxin 500 Mcg/2 Ml Amp) Confirm Administered Dose 500 mcg IV .STK-MED ONE Stop: 01/04/23 00:01 Last Admin: 01/04/23 00:15 Dose: 250 mcg Documented By: LMM Diltiazem HCl (Diltiazem Hcl 180 Mg Capcr) 180 mg PO QAM [facility] Stop: 02/02/23 08:59 Last Admin: 01/03/23 10:18 Dose: Not Given Documented By: CPB Docusate Sodium (Docusate Sodium 100 Mg Cap) 100 mg PO BID [facility] Stop: 02/02/23 08:59 Last Admin: 01/03/23 10:18 Dose: Not Given Documented By: CPB Escitalopram Oxalate (Escitalopram Oxalate 20 Mg Tab) 20 mg PO DAILY [facility] Stop: 02/02/23 08:59 Last Admin: 01/03/23 10:18 Dose: Not Given Documented By: CPB Etomidate (Etomidate 2 Mg/Ml 20 Ml Vial) Confirm Administered Dose 40 mg IV .STK-MED ONE Stop: 01/03/23 18:46 Last Admin: 01/03/23 23:39 Dose: Not Given Documented By: LMM Fentanyl Citrate (Fentanyl Citrate 2,500 Mcg/250 Ml Bag) Confirm Administered Dose 2,500 mcg IV .STK-MED ONE Stop: 01/03/23 19:21 Last Admin: 01/03/23 20:04 Dose: Not Given Documented By: AMW Fluticasone/Vilanterol (Fluticasone/Vilanterol 100/25mcg 14 Puffs/Inhaler) 1 puffs INH DAILY [facility] Stop: 02/02/23 08:59 Last Admin: 01/03/23 10:19 Dose: Not Given Documented By: CPB Furosemide (Furosemide 40 Mg/4 Ml Vial) 40 mg IV ONE ONE Stop: 01/03/23 00:16 Last Admin: 01/03/23 00:21 Dose: 40 mg Documented By: SW Furosemide (Furosemide 40 Mg/4 Ml Vial) 40 mg IV DAILY [facility] Stop: 02/02/23 08:59 Last Admin: 01/03/23 09:43 Dose: Not Given Documented By: CPB Furosemide (Furosemide 40 Mg/4 Ml Vial) 40 mg IV BIDM [facility] Stop: 02/02/23 16:59 Last Admin: 01/03/23 18:41 Dose: 40 mg Documented By: CPB Guaifenesin (Guaifenesin 600 Mg Tabcr) 600 mg PO BID [facility] Stop: 02/02/23 08:59 Last Admin: 01/03/23 10:19 Dose: Not Given Documented By: CPB Heparin Sodium/Dextrose (Heparin Iv Adult Wt-Based Low-Dose *No* Bolus Protocol) 1 each IV Q15M [facility]; Protocol Stop: 02/02/23 16:44 Last Admin: 01/04/23 07:32 Dose: Not Given Documented By: K Admin: 01/04/23 07:32 Dose: Not Given Documented By: [facility] Admin: 01/04/23 07:32 Dose: Not Given Documented By: [facility] Admin: 01/04/23 07:32 Dose: Not Given Documented By: K Admin: 01/04/23 07:31 Dose: Not Given Documented By: K Admin: 01/04/23 07:31 Dose: Not Given Documented By: [facility] Admin: 01/04/23 07:30 Dose: Not Given Documented By: K Admin: 01/04/23 07:25 Dose: Not Given Documented By: K Admin: 01/04/23 04:41 Dose: Not Given Documented By: Admin: 01/03/23 18:11 Dose: 1 each Documented By: CPB Heparin Sodium/Dextrose (Heparin 25342 Unit/500 Ml D5w) Confirm Administered Dose 25,000 units IV .STK-MED ONE Stop: 01/03/23 18:11 Last Admin: 01/03/23 18:46 Dose: Not Given Documented By: CPB Piperacillin Sod/Tazobactam Sod (Zosyn) 4.5 gm in 100 mls @ 200 mls/hr IV NOW ONE Stop: 01/02/23 23:45 Last Infusion: 01/03/23 00:50 Dose: Infused Documented By: Admin: 01/02/23 23:58 Dose: 200 mls/hr Documented By: JOURDAN Digoxin 250 mcg/ Syringe 10 mls @ 2 mls/min IV ONE ONE Stop: 01/03/23 15:04 Last Admin: 01/03/23 15:46 Dose: 2 mls/min Documented By: CPB Digoxin 250 mcg/ Syringe 10 mls @ 2 mls/min IV ONE ONE Stop: 01/03/23 21:04 Last Admin: 01/04/23 00:05 Dose: 2 mls/min Documented By: LMM Acetaminophen (Ofirmev) 1,000 mg in 100 mls @ 400 mls/hr IV NOW STA Stop: 01/03/23 17:11 Last Infusion: 01/03/23 18:56 Dose: Infused Documented By: Admin: 01/03/23 18:41 Dose: 400 mls/hr Documented By: CPB Norepinephrine Bitartrate (Levophed/D5w) 4 mg in 250 mls @ 7.56 mls/hr IV .Q24H [facility]; Protocol Stop: 02/02/23 19:29 Last Admin: 01/04/23 10:14 Dose: Not Given Documented By: Titration: 01/04/23 10:11 Dose: Infused Documented By: Titration: 01/04/23 08:52 Dose: 0.02 mcg/kg/min, 7.6 mls/hr Documented By: Titration: 01/04/23 07:21 Dose: 0.03 mcg/kg/min, 11.3 mls/hr Documented By: HLK Co-signed By: LMM Titration: 01/04/23 07:21 Dose: 0.03 mcg/kg/min, 11.3 mls/hr Documented By: HLK Co-signed By: LMM Titration: 01/04/23 03:40 Dose: 0.03 mcg/kg/min, 11.3 mls/hr Documented By: Titration: 01/04/23 00:26 Dose: 0.04 mcg/kg/min, 15.1 mls/hr Documented By: Admin: 01/03/23 19:20 Dose: 0.05 mcg/kg/min, 18.9 mls/hr Documented By: AMW Co-signed By: [facility] Sodium Chloride (Nss) 500 mls @ 999 mls/hr IV .Q31M ONE Stop: 01/04/23 06:27 Last Infusion: 01/04/23 07:21 Dose: Infused Documented By: Admin: 01/04/23 06:05 Dose: 999 mls/hr Documented By: LMM Magnesium Sulfate/Dextrose (Magnesium Sulfate / D5w) 1 gm in 100 mls @ 50 mls/hr IV Q2H [facility] Stop: 01/04/23 10:14 Last Infusion: 01/04/23 10:35 Dose: Infused Documented By: Admin: 01/04/23 08:13 Dose: 50 mls/hr Documented By: Infusion: 01/04/23 08:13 Dose: Infused Documented By: Admin: 01/04/23 06:18 Dose: 50 mls/hr Documented By: LMM Potassium Chloride (K Florentin / Wtr) 20 meq in 100 mls @ 50 mls/hr IV Q2H [facility] Stop: 01/04/23 14:14 Last Admin: 01/04/23 13:26 Dose: 50 mls/hr Documented By: Infusion: 01/04/23 13:15 Dose: Infused Documented By: Admin: 01/04/23 11:15 Dose: 50 mls/hr Documented By: Infusion: 01/04/23 11:15 Dose: Infused Documented By: Admin: 01/04/23 08:49 Dose: 50 mls/hr Documented By: Infusion: 01/04/23 08:28 Dose: Infused Documented By: Admin: 01/04/23 06:28 Dose: 50 mls/hr Documented By: NATALIE Vancomycin HCl 2,000 mg/ (Sodium Chloride) 540 mls @ 200 mls/hr IV NOW ONE Stop: 01/04/23 13:26 Last Infusion: 01/04/23 14:28 Dose: Infused Documented By: Karri Admin: 01/04/23 11:15 Dose: 200 mls/hr Documented By: SHALINIK Levothyroxine Sodium (Levothyroxine Sodium 75 Mcg Tablet) 75 mcg PO DAILYBB [facility] Stop: 02/02/23 08:59 Last Admin: 01/03/23 10:19 Dose: Not Given Documented By: CPB Magnesium Oxide (Magnesium Oxide 400 Mg Tab) 400 mg PO DAILY [facility] Stop: 02/02/23 08:59 Last Admin: 01/03/23 10:19 Dose: Not Given Documented By: CPB Metoprolol Tartrate (Metoprolol Tartrate 1 Mg/Ml Vial) 2.5 mg IV NOW STA Stop: 01/03/23 05:23 Last Admin: 01/03/23 05:40 Dose: 2.5 mg Documented By: SW Metoprolol Tartrate (Metoprolol Tartrate 25 Mg Tab) 25 mg PO BID [facility] Stop: 02/02/23 08:59 Last Admin: 01/03/23 10:19 Dose: Not Given Documented By: CPB Metoprolol Tartrate (Metoprolol Tartrate 1 Mg/Ml Vial) 5 mg IV NOW STA Stop: 01/03/23 09:53 Last Admin: 01/03/23 10:06 Dose: 5 mg Documented By: CPB Metoprolol Tartrate (Metoprolol Tartrate 1 Mg/Ml Vial) 5 mg IV NOW STA Stop: 01/03/23 10:12 Last Admin: 01/03/23 10:20 Dose: 5 mg Documented By: CPB Miscellaneous (Patient's Height &/Or Weight Needed) 1 each N/A Q2H [facility] Stop: 01/03/23 12:00 Last Admin: 01/03/23 08:10 Dose: Not Given Documented By: SLB Miscellaneous (Rapid Sequence Induction Bag) Confirm Administered Dose 1 each N/A .STK-MED ONE Stop: 01/03/23 18:46 Last Admin: 01/03/23 23:39 Dose: Not Given Documented By: LMM Norepinephrine Bitartrate (Norepinephrine/D5w 4 Mg/250 Ml) Confirm Administered Dose 4 mg IV .STK-MED ONE Stop: 01/03/23 19:27 Last Admin: 01/03/23 20:04 Dose: Not Given Documented By: AMW Olanzapine (Olanzapine 10 Mg/2.1 Ml Sdv) 2.5 mg IM NOW STA Stop: 01/03/23 03:57 Last Admin: 01/03/23 04:26 Dose: 2.5 mg Documented By: SW Pantoprazole Sodium (Pantoprazole 40 Mg Tab) 40 mg PO BID [facility] Stop: 02/02/23 08:59 Last Admin: 01/03/23 10:19 Dose: Not Given Documented By: CPB Potassium Chloride (Potassium Chloride Crtab 20 Meq Tabcr) 20 meq PO DAILY [facility] Stop: 02/02/23 08:59 Last Admin: 01/03/23 10:19 Dose: Not Given Documented By: CPB Pregabalin (Pregabalin 100 Mg Cap) 100 mg PO TID [facility] Stop: 02/02/23 08:59 Last Admin: 01/03/23 13:32 Dose: Not Given Documented By: Admin: 01/03/23 10:19 Dose: Not Given Documented By: CPB Propofol (Propofol Iv Emulsion 10 Mg/Ml 100 Ml Vial) Confirm Administered Dose 1,000 mg IV .STK-MED ONE Stop: 01/03/23 19:21 Last Admin: 01/03/23 20:04 Dose: Not Given Documented By: AMW Sodium Chloride (Sodium Chlor 7% 4 Ml Neb) 2 ml INH BIDR [facility] Stop: 02/02/23 08:59 Last Admin: 01/03/23 22:34 Dose: Not Given Documented By: Admin: 01/03/23 10:04 Dose: Not Given Documented By: CRG Tamsulosin HCl (Tamsulosin Hcl 0.4 Mg Cap) 0.4 mg PO QAM [facility] Stop: 02/02/23 08:59 Last Admin: 01/03/23 10:19 Dose: Not Given Documented By: CPB Description This is a 21 electrode EEG with a single channel dedicated to limited EKG. The electrodes were placed in accordance with the International 10-20 system. Interpretation Report: At the onset of the EEG the patient is intubated in an altered mental state. The background is continuous. The posterior dominant rhythm is not seen. There is a loss of the normal anterior to posterior gradient. The background consists of generalized polymorphic delta activity with superimposed myogenic artifact or fast frequencies. no stage 2 sleep transients are seen. Photic stimulation does not induce any abnormalities. Hyperventilation is not performed. Clinical Correlation Impression: This is an abnormal routine EEG in a patient with altered mentation due to severe generalized background suppression/background slowing suggestive of a severe nonspecific encephalopathy. No epileptiform activity or electrographic seizures are seen on this recording.
[2023-01-04] MEDS ORDERED: levETIRAcetam 1,000 MG in 0.9 % SODIUM CHLORIDE 100 ML IV STA (15:06)
[2023-01-04] MEDS ORDERED: DIGOXIN 125 MCG in SYRINGE 9.5 ML IV SCH (16:00)
--- NOTE | 2023-01-04 16:06 | Discharge Summary ---
Discharge Summary Date of Service January 04, 2023 Notes For Next Care Provider Medication Changes From Visit Heparin Drip iso atrial fibrillation (last DOAC ~01/02) Phenylephrine Propofol Fentanyl Keppra BID 500mg IV iso myoclonic/seizurelike activity Admission HPI Per Admitting Provider 82-year-old male with past medical significant for gout, hyperlipidemia, hypothyroidism, restrictive lung disease, bronchiectasis without complication, chronic respiratory failure with hypoxia and hypercapnia, obstructive sleep apnea on BiPAP, mild persistent asthma, interstitial pulmonary disease, persistent atrial fibrillation, tachybradycardia syndrome, s/p pacemaker, chronic diastolic CHF, CKD stage III, hypertension, history of CAD, history of BPH, depression, history of prostate cancer, generalized anxiety disorder, PTSD, schizophrenia, was brought in because of aspiration, shortness of breath and confusion. Patient is coming from group home. Apparently patient seems to be doing regurgitating and the nurse was concerned and gave him a liter of fluids and after that the patient became acutely short of breath and was saturating 81% on his chronic 4 L oxygen. EMS was summoned and brought him to the hospital. Family is in the room. Daughter states he has history of esophageal dilatation in the past. Last several days he is having problems swallowing. They think he has aspirated and thinks probably needs esophageal dilatation. And also he was somewhat confused today. Patient recently had a back surgery and he was in rehab and currently group home. Since surgery patient is not ambulating. He is wheelchair-bound. There are no complaints of any pain. No fevers. No nausea. Currently patient is drowsy and confused could not get any history from the patient. Past medical history. As mentioned above Past surgical history. Colonoscopy. Cystoscopy. EGD with endoscopic ultrasound. Vasectomy. Proctosigmoidoscopy. Tonsillectomy. Bilateral hip replacement. Transperineal placement of needles in the prostate Social history. . Quit smoking 1978. Smoked 1.5 packs daily for 24 years. No alcohol currently. No drug use. Family history. Brother had BPH. Daughter has breast cancer. Diabetes. Sister has diabetes. Admission Exam Per Admitting Provider General- Drowsy. Confused. Head- atraumatic Eyes- PERRL. ENT- oropharynx clear Neck- supple, no JVD. Lungs- clear to auscultation mild bibasilar crackles, no wheezing. Heart- regular rhythm; no murmur, no gallop. Abdomen- normal bowel sounds, soft, no distension Extremities- no pretibial edema, no erythema seen. Neuro- Drowsy. Confused. PERRL, no facial palsy. Skin- warm & dry Principal Dx & Hospital Course #1 = Principal Diagnosis (1) Aspiration into airway: (2) Acute on chronic respiratory failure with hypoxia and hypercapnia: (3) Acute on chronic diastolic (congestive) heart failure: (4) Atrial fibrillation with RVR: Plan Mr. May is an 82-year-old male with past medical significant for gout, hyperlipidemia, hypothyroidism, restrictive lung disease, bronchiectasis without complication, chronic respiratory failure with hypoxia and hypercapnia, obstructive sleep apnea on BiPAP, mild persistent asthma, interstitial pulmonary disease, persistent atrial fibrillation, tachybradycardia syndrome, s/p pacemaker, chronic diastolic CHF, CKD stage III, hypertension, history of CAD, history of BPH, depression, history of prostate cancer, generalized anxiety disorder, PTSD, schizophrenia, who is admitted due to acute on chronic respiratory failure with concerns of aspiration. Upon initial exam 01/03 in ED after admission, patient was in A Fib RVR after an attempt to take medications was made, in which patient aspirated, became agitated, and desaturated notably. Saturations improved to 90s on BiPAP and patient was alert and following commands. However, blood pressures hypotensive iso HRs in 140s-160s. A trial of metoprolol was made with some modest improvement in rates and increased blood pressure. ECHO revealed LA compression, CT chest revealed esophagus with massive dilatation and gastric contents up to glotis. Given concern of more aspiration with BiPAP, ICU was contacted for evaluation for airway protection. Decision was made to transfer patient to ICU and intubate 01/03. Emergent Bronchoscopy revealed thick purulent secretions, prominent in LLL but found bilaterally per report. Cultures sent 01/03. Antibiotics broadened. Discussion had with GI regarding next steps which include possible transfer to [facility] for more advanced GI interventions if patient stable to tolerate at this time. Ongoing discussion with ICU on stability/ability to tolerate transfer at this time--If no transfer anticipated, potential for EGD. In interim, patient on pressor support and requiring ICU monitor iso intubation. Transfer facilitated to [facility] to explore advance GI interventions on 01/04. In the process of transferring, patient noted to have myoclonic like/seizure like activity. EEG obtained with diffuse slowing, nonspecific encephalopathy--no seizure like activity appreciated; however, given the abnormal movements, patient loaded with keppra with recommendations to continue Keppra 500mg BID IV. #Seizure like activity -Noted this afternoon, EEG with nonspecific activity c/w severe encephalopathy -Loaded with Keppra, continue keppra 500mg BID IV -Consider Neurology #Shock, multifactorial -circulatory collapse iso of aspiration pneumonia, respiratory failure, a fib RVR on acute HFpEF now requiring pressor support -Art line right radial placed 01/03, left subclavian central line -Pressor support per ICU, transitioned to phenyl iso a fib -Blood cultures 01/02 NGTD -Bronch sputum Pending -Urine pending #Intubated and Sedated #Metabolic encephalopathy, likely secondary to aspiration/hypoxic -As below -Delirium precautions -Management per ICU, propofol sedation, fentanyl analgesia #NICOLÁS on CKD IIIa *improving -up to 1.8 yesterday, like prerenal iso a fib, hypotension, acute illness -downtrended today -CTM, avoid nephrotoxic agents #Acute on chronic hypoxic/hypercarbic respiratory failure, multifactorial #Aspiration Pneumonia #RUDY #History of ILD On on 3 to 4 L oxygen baseline Bronch 01/03: bilateral purulent excretions in airway -Follow infectious work ip -Continue Zosyn and Vancomycin -Vent management per ICU #Acute on chronic heart failure with preserved EF s/p IV lasix -Cardiology on consult -IV lasix 40mg BID Monitor on telemetry Will follow echo, LA with compressive mass--esophageal compression? I's and O's #Atrial fibrillation with RVR #Tachybradycardia syndrome s/p pacemaker --Holding home metoprolol/dilt iso aspiration/dysphagia s/p IV digoxin per cards -Continue metoprolol 5mg q4h -Heparin drip while holding eliquis (last dose 01/02 am) -Daily iv digoxin #Aspiration #Achalasia c/b food impaction of esophagus #Ongoing difficulty swallowing for last few days as per family History of esophageal dilatation 12/15, noted food impaction up to glotis on 01/05 CT scan Strict NPO Consult GI: reassess wednesday IV as able #History of restrictive lung disease #History of chronic respiratory failure #History of mild persistent asthma #History of interstitial pulmonary disease Continue home inhalers Nebs as needed #History of CAD On aspirin statin and beta-dilip, resume home regimen when able #History of BPH on Flomax resume when able #Generalized anxiety disorder #Depression #Schizophrenia #PTSD on Lexapro, Remeron, Zyprexa: resume when able, discussed with psych--given mu ltiple medications, including pregabalin and flexeril, in addition to psych medications, no notable risk of withdrawal like symptoms, resume when able #Restless leg syndrome On ropinirole resume when able #Hyperlipidemia On statin resume when able #Hypothyroidism On Synthyroid- IV in am #Ambulatory dysfunction Currently not walking since his back surgery PT OT when stable #Abnormal CT of the abdomen Last admission Cystic pancreatic lesions Needs follow-up #History of prostate cancer Seems follows with heme-onc DVT prophylaxis plan for heparin Disposition ICU Fluids per ICU, lytes per ICU replacement Analgesia fentanyl Sedation per ICU RASS protocol, propofol Thromboprophylaxis: heparin drip (holding home eliquis) HOB 30 degrees Ulcer ppx: Pantoprazole 40mg IV given intubated patient Glycemic control per ICU protocol SAT/SBT: sedation/anagelsia per ICU, SBT once GI with definitive plan Bowel regimen when able Indwelling cath: montoya 01/03, R art line, left subcalvian Deescalte antibiotics as able CODE STATUS Full code if there is chance of recovery as per discussion with the family Discharge Exam Constitutional intubated, sedated Neck left subclavian Respiratory decreased breath sounds in periphery with crackles bilaterally, mechanical breath sounds iso ventilation ACVC 480/18/100/5 Cardiovascular irregularly irregular right art line Gastrointestinal (Abdomen) soft NTND, BS+ Musculoskeletal no edema Neurologic RASS -2, unresponsive; myoclonic like activity noted Genitourinary montoya Updated Medication List Medication Instructions Recorded Confirmed Type albuterol sulfate 90 mcg/actuation 2 puff inhalation Q4 PRN Shortness 08/03/22 01/03/23 History aerosol inhaler Of Breath Or Wheezing apixaban 2.5 mg tablet (Eliquis) 2.5 mg PO BID 08/03/22 01/03/23 History aspirin 81 mg capsule 81 mg PO QAM 08/03/22 01/03/23 History atorvastatin 20 mg tablet (Lipitor) 20 mg PO HS 08/03/22 01/03/23 History calcium carbonate 600 mg-vitamin 1 tab PO QAM 08/03/22 01/03/23 History D3 10 mcg (400 unit) tablet (Calcium 600 + D(3)) cyclosporine 0.05 % eye drops in a 1 drp ophthalmic (eye) Q12H PRN 08/03/22 01/03/23 History dropperette (Restasis) Dry Eye(S) diltiazem HCl 180 mg 180 mg PO QAM 08/03/22 01/03/23 History capsule,extended release 24 hr guaifenesin 600 mg tablet, 600 mg PO BID 08/03/22 01/03/23 History extended release 12 hr (Mucinex) levothyroxine 75 mcg tablet 75 mcg PO QAM 08/03/22 01/03/23 History metoprolol tartrate 25 mg tablet 25 mg PO BID 08/03/22 01/03/23 History olanzapine 5 mg tablet (Zyprexa) 5 mg PO HS 08/03/22 01/03/23 History ropinirole 1 mg tablet 1 mg PO HS 08/03/22 01/03/23 History tamsulosin 0.4 mg capsule 0.4 mg PO QAM 08/03/22 01/03/23 History cyclobenzaprine 5 mg tablet 5 mg PO TID 30 days #90 tabs 12/18/22 01/03/23 Rx Naloxone 4mg/0.1ml 0 mg intranasal DIRECTED PRN 01/03/23 01/03/23 History .opiod od acetaminophen 500 mg tablet 1,000 mg PO Q8 PRN pain 01/03/23 01/03/23 History (Tylenol Extra Strength) docusate sodium 100 mg capsule 100 mg PO BID 01/03/23 01/03/23 History escitalopram oxalate 10 mg tablet 20 mg PO DAILY 01/03/23 01/03/23 History fluticasone furoate 100 1 inh inhalation DAILY 01/03/23 01/03/23 History mcg-vilanterol 25 mcg/dose inhalation powder (Breo Ellipta) hydrocodone 5 mg-acetaminophen 325 1 tab PO Q6H PRN .Pain 4-10 01/03/23 01/03/23 History mg tablet magnesium oxide 400 mg PO DAILY 01/03/23 01/03/23 History mirtazapine 15 mg tablet 30 mg PO HS 01/03/23 01/03/23 History ondansetron HCl 4 mg tablet 4 mg PO Q4 PRN Nausea 01/03/23 01/03/23 History pantoprazole 40 mg tablet,delayed 40 mg PO BID 01/03/23 01/03/23 History release (Protonix) polyethylene glycol 3350 17 gram 17 g PO DAILY PRN Constipation 01/03/23 01/03/23 History oral powder packet (Miralax) potassium chloride 20 mEq 20 meq PO DAILY 01/03/23 01/03/23 History tablet,extended release pregabalin 100 mg capsule (Lyrica) 100 mg PO TID 01/03/23 01/03/23 History sennosides 8.6 mg-docusate sodium 1 tab-cap PO DAILY PRN Constipation 01/03/23 01/03/23 History 50 mg tablet (Senokot-S) sodium chloride 0.9 % 100 ml IV DIRECTED 01/03/23 01/03/23 History sodium chloride 3.5 % for 4 ml inhalation BID 01/03/23 01/03/23 History nebulization (Hyper-Ck) Icu Electrolyte Replacement [Icu 1 ea Not Applicable BID@06,18 ##0 01/04/23 Rx Electrolyte Replacement Protocol] Icu Protocol For Hyperglycemia 1 ea Not Applicable ACHS ##0 01/04/23 Rx Vancomycin Consult Active [Consult] 1 ea Not Applicable UD PRN ##0 01/04/23 Rx fentanyl citrate (PF) 50 mcg/mL 50 mcg IV Q60M PRN #0 mL 01/04/23 Rx injection solution levetiracetam 500 mg/5 mL 500 mg (5 mL) IV BID 01/04/23 Rx intravenous solution (Keppra) metoprolol tartrate 5 mg/5 mL 5 mg (5 mL) IV Q4 #0 mL 01/04/23 Rx intravenous solution olanzapine 10 mg intramuscular 5 mg IM HS PRN #0 ea 01/04/23 Rx solution propofol 10 mg/mL intravenous 20 mg (2 mL) IV Q5M PRN #0 mL 01/04/23 Rx emulsion (Diprivan) Hospital Stay Data Consultations 01/03/23 00:14 ED Decision to Admit Stat 01/03/23 08:00 Consult Cardiology Routine Consult Gastroenterology Routine 01/03/23 18:45 Consult Applique Cutter Stat Diagnostic Imagining Performed 01/03/23 03:57 CT head/brain wo con Urgent 01/03/23 15:14 CT chest without contrast [CT chest diagnostic wo con] Urgent Pending Results Patient Have Any Pending Studies at Discharge: Yes (Infectious Disease Cultures: Blood and Bronch Lavage 01/03 ) Discharge Instructions Given to Patient (Per Discharging Provider) Mr. May is an 82-year-old male with past medical significant for gout, hyperlipidemia, hypothyroidism, restrictive lung disease, bronchiectasis without complication, chronic respiratory failure with hypoxia and hypercapnia, obstructive sleep apnea on BiPAP, mild persistent asthma, interstitial pulmonary disease, persistent atrial fibrillation, tachybradycardia syndrome, s/p pacemaker, chronic diastolic CHF, CKD stage III, hypertension, history of CAD, history of BPH, depression, history of prostate cancer, generalized anxiety disorder, PTSD, schizophrenia, who is admitted due to acute on chronic respiratory failure with concerns of aspiration. Upon initial exam 01/03 in ED after admission, patient was in A Fib RVR after an attempt to take medications was made, in which patient aspirated, became agitated, and desaturated notably. Saturations improved to 90s on BiPAP and patient was alert and following commands. However, blood pressures hypotensive iso HRs in 140s-160s. A trial of metoprolol was made with some modest improvement in rates and increased blood pressure. ECHO revealed LA compression, CT chest revealed esophagus with massive dilatation and gastric contents up to glotis. Given concern of more aspiration with BiPAP, ICU was contacted for evaluation for airway protection. Decision was made to transfer patient to ICU and intubate 01/03. Emergent Bronchoscopy revealed thick purulent secretions, prominent in LLL but found bilaterally per report. Cultures sent 01/03. Antibiotics broadened. Discussion had with GI regarding next steps which include possible transfer to [facility] for more advanced GI interventions if patient stable to tolerate at this time. Ongoing discussion with ICU on stability/ability to tolerate transfer at this time--If no transfer anticipated, potential for EGD. In interim, patient on pressor support and requiring ICU monitor iso intubation. Transfering to [facility] [place] for pneumatic dilation or myotomy per discussion with Dr Jc to Dr Bennett. #Seizure like activity -Noted this afternoon, EEG with nonspecific activity c/w severe encephalopathy -Loaded with Keppra, continue keppra 500mg BID IV -Consider Neurology #Shock, multifactorial -circulatory collapse iso of aspiration pneumonia, respiratory failure, a fib RVR on acute HFpEF now requiring pressor support -Art line right radial placed 01/03, left subclavian central line -Pressor support per ICU, transitioned to phenyl iso a fib -Blood cultures 01/02 NGTD -Bronch sputum Pending -Urine pending #Intubated and Sedated #Metabolic encephalopathy, likely secondary to aspiration/hypoxic -As below -Delirium precautions -Management per ICU, propofol sedation, fentanyl analgesia #NICOLÁS on CKD IIIa *improving -up to 1.8 yesterday, like prerenal iso a fib, hypotension, acute illness -downtrended today -CTM, avoid nephrotoxic agents #Acute on chronic hypoxic/hypercarbic respiratory failure, multifactorial #Aspiration Pneumonia #RUDY #History of ILD On on 3 to 4 L oxygen baseline Bronch 01/03: bilateral purulent excretions in airway -Follow infectious work ip -Continue Zosyn and Vancomycin -Vent management per ICU #Acute on chronic heart failure with preserved EF s/p IV lasix -Cardiology on consult -IV lasix 40mg BID Monitor on telemetry Will follow echo, LA with compressive mass--esophageal compression? I's and O's #Atrial fibrillation with RVR #Tachybradycardia syndrome s/p pacemaker --Holding home metoprolol/dilt iso aspiration/dysphagia s/p IV digoxin per cards -Continue metoprolol 5mg q4h -Heparin drip while holding eliquis (last dose 01/02 am) -Daily iv digoxin #Aspiration #Achalasia c/b food impaction of esophagus #Ongoing difficulty swallowing for last few days as per family History of esophageal dilatation 12/15, noted food impaction up to glotis on 01/05 CT scan Strict NPO Consult GI: reassess wednesday IV as able #History of restrictive lung disease #History of chronic respiratory failure #History of mild persistent asthma #History of interstitial pulmonary disease Continue home inhalers Nebs as needed #History of CAD On aspirin statin and beta-dilip, resume home regimen when able #History of BPH on Flomax resume when able #Generalized anxiety disorder #Depression #Schizophrenia #PTSD on Lexapro, Remeron, Zyprexa: resume when able, discussed with psych--given multiple medications, including pregabalin and flexeril, in addition to psych medications, no notable risk of withdrawal like symptoms, resume when able #Restless leg syndrome On ropinirole resume when able #Hyperlipidemia On statin resume when able #Hypothyroidism On Synthyroid- IV in am #Ambulatory dysfunction Currently not walking since his back surgery PT OT when stable #Abnormal CT of the abdomen Last admission Cystic pancreatic lesions Needs follow-up #History of prostate cancer Seems follows with heme-onc DVT prophylaxis plan for heparin Disposition ICU Fluids per ICU, lytes per ICU replacement Analgesia fentanyl Sedation per ICU RASS protocol, propofol Thromboprophylaxis: heparin drip (holding home eliquis) HOB 30 degrees Ulcer ppx: Pantoprazole 40mg IV given intubated patient Glycemic control per ICU protocol SAT/SBT: sedation/anagelsia per ICU, SBT once GI with definitive plan Bowel regimen when able Indwelling cath: montoya 01/03, R art line, left subcalvian Deescalte antibiotics as able CODE STATUS Full code if there is chance of recovery as per discussion with the family Total Time Total Time Spent Total Time Spent (In Minutes): 75
[2023-01-04] MEDS ORDERED: D5W AND 1/2NSS 1,000 ML IV SCH (16:30)
[2023-01-04] MEDS: HEPARIN SODIUM/DEXTROSE 25,000 UNITS/500 ML BAG IV SCH (16:54)
[2023-01-04] MEDS ORDERED: DEXTROSE 50% 50 ML SYRINGE IV ONE ×2 (16:57→17:10)
--- NOTE | 2023-01-04 17:36 | Electrocardiogram Report ---
Test Reason : Blood Pressure : / mmHG Vent. Rate : 138 BPM Atrial Rate : 000 BPM P-R Int : 000 ms QRS Dur : 148 ms QT Int : 340 ms P-R-T Axes : 000 084 -40 degrees QTc Int : 515 ms Atrial fibrillation with rapid ventricular response with premature ventricular or aberrantly conducte d complexes Right bundle branch block T wave abnormality, consider inferolateral ischemia Abnormal ECG When compared with ECG of 02-JAN-2023 23:14, Right bundle branch block is now Present Confirmed by Brenden Markham ([id number]) on 01/04/2023 5:36:19 PM Referred By: NO PCP Confirmed By:Preston Markham
[2023-01-04] MEDS ORDERED: SUCCINYLCHOLINE CHLORIDE 20 MG/ML 10 ML VIAL IV ONE (17:52)
[2023-01-04] MEDS ORDERED: ETOMIDATE 2 MG/ML 20 ML VIAL IV ONE (17:52)
[2023-01-04] MEDS ORDERED: fentaNYL citrate PF 100 MCG/2 ML VIAL IV ONE (17:52)
[2023-01-04] MEDS ORDERED: levETIRAcetam 500 MG in SODIUM CHLOR 0.9% MINI-B 100 ML IV SCH (21:00)
[2023-01-05] MEDS ORDERED: VANCOMYCIN HCL 1,250 MG in SODIUM CHLORIDE 0.9% 250 ML IV SCH (02:00)
[2023-01-05] MEDS ORDERED: levETIRAcetam 500 MG in SODIUM CHLOR 0.9% MINI-B 100 ML IV SCH (08:00)
== END 2023-01-04 17:53 | disposition short-term general hospital (02) | DRG 189 ==
LOC: ED 22:57 → EDINP 01-03 03:53 → 1E 01-03 06:28

== ENCOUNTER 2024-01-05 15:17 | Inpatient (IN) ==
[2024-01-05 15:51] LABS: Base Excess VBG 12.1 mEq/L; HCO3 VBG 40 mmol/L; Oxygen Saturation VBG < 60.0 %; PCO2 VBG 66 mmHg (38-50); PO2 VBG 20 mmHg; pH VBG 7.39 (7.36-7.41)
[2024-01-05 16:01] LABS: Basophils # (auto) 0.02 K/uL (0.00-0.20); Basophils % (auto) 0.2 %; Eosinophils # (auto) 0.03 K/uL (0.00-0.50); Eosinophils % (auto) 0.3 %; Immature Granulocytes # (auto) 0.04 K/uL (0.01-0.20); Immature Granulocytes % (auto) 0.4 %; Lymphocytes # (auto) 1.45 K/uL (1.20-3.40); Lymphocytes % (auto) 13.6 %; Mean Corpuscular Hemoglobin 29.7 pg (25.0-34.0); Mean Corpuscular Hgb Conc 32.5 g/dL (32.0-36.0); Mean Corpuscular Volume 91.5 fL (80.0-100.0); Mean Platelet Volume 10.5 fL (9.4-12.4); Monocytes # (auto) 0.54 K/uL (0.11-0.59); Monocytes % (auto) 5.1 %; Neutrophils % (auto) 80.4 %; Platelet Count 163 K/uL (130-400); RDW Standard Deviation 50.3 fL (36.4-46.3); Red Blood Count 4.37 M/uL (4.70-6.10); White Blood Count 10.68 K/ul (4.8-10.8)
[2024-01-05] MEDS: methylPREDNISolone 125 MG/2 ML VIAL IV STA (16:08)
[2024-01-05] MEDS: ALBUT/IPRATROP 3MG/0.5MG NEB 3 ML VIAL NEB STA ×2 (16:08→16:46)
--- NOTE | 2024-01-05 16:10 | Emergency Department Note ---
History of Present Illness General Chief Complaint: Shortness of Breath/Dyspnea Stated Complaint: WHEEZING, CONGESTION, COUGH, COPD Time Seen by Provider: 01/05/24 15:33 History of Present Illness Provider Complaint: shortness of breath and cough Onset (ago): week(s) (1) Consistency/Duration: + progressively worsening Relieved By: + oxygen Exacerbated By: + coughing Known history of: COPD and asthma Associated symptoms: + cough, + wheezing, + sputum production and + chest congestion; no fever or no hemoptysis Related Data Home oxygen amount: 2 liters Home Medications Medication Instructions Recorded Confirmed Type albuterol sulfate 90 mcg/actuation 2 puff inhalation .EVERY 4-6 HOURS 08/03/22 01/05/24 History aerosol inhaler PRN Shortness Of Breath Or Wheezing aspirin 81 mg capsule 81 mg PO QAM 08/03/22 01/05/24 History atorvastatin 20 mg tablet (Lipitor) 20 mg PO HS 08/03/22 01/05/24 History calcium 600 mg (as 1 tab PO QDD 08/03/22 01/05/24 History carbonate)-vitamin D3 10 mcg (400 unit) tablet (Calcium 600 + D(3)) cyclosporine 0.05 % eye drops in a 1 drp ophthalmic (eye) Q12H Dry 08/03/22 01/05/24 History dropperette (Restasis) Eye(S) diltiazem HCl 180 mg 180 mg PO QAM 08/03/22 01/05/24 History capsule,extended release 24 hr guaifenesin 600 mg tablet, 600 mg PO BID 08/03/22 01/03/23 History extended release 12 hr (Mucinex) levothyroxine 75 mcg tablet 75 mcg PO QAM 08/03/22 01/05/24 History metoprolol tartrate 25 mg tablet 25 mg PO BID 08/03/22 01/03/23 History olanzapine 5 mg tablet (Zyprexa) 5 mg PO HS 08/03/22 01/03/23 History ropinirole 1 mg tablet 1 mg PO HS 08/03/22 01/03/23 History tamsulosin 0.4 mg capsule 0.4 mg PO QAM 08/03/22 01/05/24 History Naloxone 4mg/0.1ml 0 mg intranasal DIRECTED PRN 01/03/23 01/03/23 History .opiod od docusate sodium 100 mg capsule 100 mg PO BID 01/03/23 01/03/23 History hydrocodone 5 mg-acetaminophen 325 1 tab PO Q6H PRN .Pain 4-10 01/03/23 01/03/23 History mg tablet magnesium oxide 400 mg PO DAILY 01/03/23 01/03/23 History mirtazapine 15 mg tablet 30 mg PO HS 01/03/23 01/03/23 History ondansetron HCl 4 mg tablet 4 mg PO Q4 PRN Nausea 01/03/23 01/03/23 History pantoprazole 40 mg tablet,delayed 40 mg PO BID 01/03/23 01/03/23 History release (Protonix) polyethylene glycol 3350 17 gram 17 g PO DAILY PRN Constipation 01/03/23 01/03/23 History oral powder packet (Miralax) potassium chloride 20 mEq 20 meq PO DAILY 01/03/23 01/03/23 History tablet,extended release pregabalin 100 mg capsule (Lyrica) 100 mg PO TID 01/03/23 01/03/23 History sennosides 8.6 mg-docusate sodium 1 tab-cap PO DAILY PRN Constipation 01/03/23 01/03/23 History 50 mg tablet (Senokot-S) sodium chloride 0.9 % 100 ml IV DIRECTED 01/03/23 01/03/23 History sodium chloride 3.5 % for 4 ml inhalation BID 01/03/23 01/03/23 History nebulization (Hyper-Ck) Icu Electrolyte Replacement [Icu 1 ea Not Applicable BID@06,18 ##0 01/04/23 Rx Electrolyte Replacement Protocol] Icu Protocol For Hyperglycemia 1 ea Not Applicable ACHS ##0 01/04/23 Rx Vancomycin Consult Active [Consult] 1 ea Not Applicable UD PRN ##0 01/04/23 Rx levetiracetam 500 mg/5 mL 500 mg (5 mL) IV BID 01/04/23 Rx intravenous solution (Keppra) metoprolol tartrate 5 mg/5 mL 5 mg (5 mL) IV Q4 #0 mL 01/04/23 Rx intravenous solution olanzapine 10 mg intramuscular 5 mg IM HS PRN #0 ea 01/04/23 Rx solution propofol 10 mg/mL intravenous 20 mg (2 mL) IV Q5M PRN #0 mL 01/04/23 Rx emulsion (Diprivan) acetaminophen 325 mg tablet 650 mg PO Q4 PRN Fever Or Pain 01/05/24 01/05/24 History apixaban 2.5 mg tablet (Eliquis) 2.5 mg PO AMHS 01/05/24 01/05/24 History cefadroxil 500 mg capsule 500 mg PO Q12 01/05/24 01/05/24 History escitalopram oxalate 20 mg tablet 20 mg PO QAM 01/05/24 01/05/24 History fluticasone 250 mcg-salmeterol 50 1 ea inhalation BID 01/05/24 01/05/24 History mcg/dose blistr powdr for inhalation [id number]-ihn C-Mn 500 1 cap PO QDD 01/05/24 01/05/24 History mg-400 mg capsule lutein 20 mg tablet 20 mg PO QDD 01/05/24 01/05/24 History mirtazapine 30 mg tablet 30 mg PO HS 01/05/24 01/05/24 History spironolactone 25 mg tablet 12.5 mg PO Q OTHER DAY 01/05/24 01/05/24 History torsemide 20 mg tablet 60 mg PO QAM 01/05/24 01/05/24 History Allergies Allergy/AdvReac Type Severity Reaction Status Date / Time oxycodone Allergy Unknown Flushing Verified 01/03/23 02:35 propoxyphene Allergy Unknown Flushing Verified 01/03/23 02:35 niacin AdvReac Unknown flushed Verified 01/03/23 02:35 feeling Past Med/Surg History Problem List (Updated 01/05/24 @ 17:58 by Mo Soto MD) COPD exacerbation (Acute) Fluid overload (Acute) COVID-19 (Acute) Atrial fibrillation with RVR Aspiration into airway Acute on chronic diastolic (congestive) heart failure Acute on chronic respiratory failure with hypoxia and hypercapnia Acute respiratory failure (Acute) Food impaction of esophagus Dysphagia Post-op pneumonia Abnormal CT of the abdomen Thoracic spinal stenosis Myelopathy concurrent with and due to spinal stenosis of thoracic region Acute kidney injury superimposed on CKD Lumbar spinal stenosis Chronic respiratory failure Sleep apnea bipap; 3 lpm hs Restless leg syndrome Chronic kidney disease (CKD), stage III (moderate) Anxiety and depression Hypothyroidism Hyperlipidemia HTN (hypertension) Weakness (Acute) Chronic heart failure with preserved ejection fraction Status post left hip replacement Aortic stenosis, mild Chronic atrial fibrillation Acute on chronic heart failure with preserved ejection fraction (HFpEF) (Acute) Tachy-noni syndrome s/p pacemaker placement 2017 Medical History Encounter for pre-operative examination Prostate cancer Around 2013- s/p brachytherapy - Lupron q 3 months Pulmonary disease restrictive lung disease, hypoxic respiratory failure, hypercapnic respiratory failure , bronchiectasis, 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, 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 per records Aortic stenosis Mild per 2021 ECHO Diastolic heart failure Compensated per cardio records Hx of pyoderma gangrenosum BLE On anticoagulant therapy eliquis A-fib follows w/ [facility] cardio, [place] [facility] on Eliquis Pacemaker medtronic, last checked 05/13/22, remotely Asthmatic bronchitis Breathing stable - chronic (hx of smoker) Surgical History History of surgery Rectal fissure repair S/P placement of cardiac pacemaker Hx of colonoscopy Hx of tonsillectomy Hx of total hip arthroplasty RIGHT Family History Other No family history of adverse response to anesthesia Social History Smoking Status: Former smoker Tobacco Type: Cigarettes Second Hand Exposure: No; Do You Dip or Chew Tobacco: No; Hx Alcohol Use: No Hx Substance Use: No Preferred Language: [place] Communication Ability: Unable Communication Ability Comment: Patient intubated and sedated Network Relations Consultant Required: No Beliefs That Will Affect Care: None Current Living Situation: Rehab Feels Safe at Home: Yes Assistive Devices: Cane, Oxygen - Continuous and Walker Physical Exam 2 Vital Signs: Vital Signs - 24 hr 01/05/24 15:23 01/05/24 15:59 01/05/24 16:00 Temperature 36.6 C Temperature Source Temporal Artery Sc an Pulse Rate 82 74 Pulse Rate [Apical ] Pulse Rate from Sp O2 Sensor Respiratory Rate 22 Respiratory Effort / Characteristics Respiratory Depth Blood Pressure 115/63 129/74 Blood Pressure [Le ft Arm] Blood Pressure Latasha n 80 93 Blood Pressure Latasha n [Left Arm] Pulse Oximetry 93 Oxygen Delivery Me thod Nasal Cannula Oxygen Flow Rate 2 Sepsis Recent Feve r Within 48 Hours No Sepsis New/Unexpla ined Change in Men nikos Status N/A Sepsis Action Take n by Nursing No Action Required 01/05/24 16:09 01/05/24 16:09 01/05/24 16:10 Temperature Temperature Source Pulse Rate 76 Pulse Rate [Apical ] Pulse Rate from Sp O2 Sensor 74 Respiratory Rate 28 H Respiratory Effort / Characteristics Respiratory Depth Blood Pressure 114/71 Blood Pressure [Le ft Arm] Blood Pressure Latasha n 78 Blood Pressure Latasha n [Left Arm] Pulse Oximetry 92 97 Oxygen Delivery Me thod Nasal Cannula Oxygen Flow Rate 2 Sepsis Recent Feve r Within 48 Hours Sepsis New/Unexpla ined Change in Men nikos Status Sepsis Action Take n by Nursing 01/05/24 16:10 01/05/24 16:10 01/05/24 16:12 Temperature Temperature Source Pulse Rate Pulse Rate [Apical ] 99 H Pulse Rate from Sp O2 Sensor Respiratory Rate 21 Respiratory Effort / Characteristics Spontaneous Labore d Respiratory Depth Shallow Blood Pressure Blood Pressure [Le ft Arm] 114/71 Blood Pressure Latasha n Blood Pressure Latasha n [Left Arm] 85 Pulse Oximetry 100 100 100 Oxygen Delivery Me thod Nebulizer Nebulizer Nebulizer Oxygen Flow Rate Sepsis Recent Feve r Within 48 Hours Sepsis New/Unexpla ined Change in Men nikos Status Sepsis Action Take n by Nursing 01/05/24 16:45 01/05/24 17:00 01/05/24 17:00 Temperature Temperature Source Pulse Rate 73 88 Pulse Rate [Apical ] Pulse Rate from Sp O2 Sensor 81 85 Respiratory Rate 23 30 H Respiratory Effort / Characteristics Respiratory Depth Blood Pressure 137/79 Blood Pressure [Le ft Arm] Blood Pressure Latasha n 96 Blood Pressure Latasha n [Left Arm] Pulse Oximetry 89 L 93 Oxygen Delivery Me thod Oxygen Flow Rate Sepsis Recent Feve r Within 48 Hours Sepsis New/Unexpla ined Change in Men nikos Status Sepsis Action Take n by Nursing 01/05/24 17:30 01/05/24 17:30 Temperature Temperature Source Pulse Rate 84 Pulse Rate [Apical ] Pulse Rate from Sp O2 Sensor 89 Respiratory Rate 28 H Respiratory Effort / Characteristics Respiratory Depth Blood Pressure 136/94 Blood Pressure [Le ft Arm] Blood Pressure Latasha n 104 Blood Pressure Latasha n [Left Arm] Pulse Oximetry 99 Oxygen Delivery Me thod Oxygen Flow Rate Sepsis Recent Feve r Within 48 Hours Sepsis New/Unexpla ined Change in Men nikos Status Sepsis Action Take n by Nursing Physical Exam: Physical Exam GENERAL: oriented to person, place, and time. appears well-developed and well- nourished. HENT: Exam performed. - Head: Normocephalic and atraumatic. EYES: Conjunctivae and EOM are normal. Right eye exhibits no discharge. Left eye exhibits no discharge. No scleral icterus. NECK: Normal range of motion. Neck supple. No JVD present. CV: Normal rate, regular rhythm, normal heart sounds and intact distal pulses. There is no peripheral edema. Palpable radial pulses bue. PULM/CHEST: Expiratory wheezes bilaterally. ABD: The abdomen is soft. There is no tenderness. NEURO: Motor and sensation grossly intact. MUSC: Wound VAC to the left lower extremity. PSYCH: normal mood and affect. Behavior is normal. Judgment and thought content normal. Course Course 1533: The patient was evaluated in room A4. A complete history and physical exam was performed Cardiac monitoring: An order was placed for continuous cardiac monitoring. The monitor shows a rate of 80 with paced rhythm interpreted by me 1715: Vital signs stable. Patient still having diffuse wheezing status post 2 DuoNeb's and IV steroids. Patient does state he feels better after 2 DuoNeb's. Patient positive for COVID as well as appears to be fluid overloaded. Patient be treated with Eliquis and will be admitted. Administered Medications Discontinued Medications Albuterol (Albut/Ipratrop 3mg/0.5mg Neb 3 Ml Vial) 3 ml NEB NOW STA; Protocol Stop: 01/05/24 15:50 Last Admin: 01/05/24 16:08 Dose: 3 ml Documented By: PATRICIA Albuterol (Albut/Ipratrop 3mg/0.5mg Neb 3 Ml Vial) 3 ml NEB NOW STA; Protocol Stop: 01/05/24 15:51 Last Admin: 01/05/24 16:46 Dose: 3 ml Documented By: PATRICIA Furosemide (Furosemide 40 Mg/4 Ml Vial) 40 mg IV ONE ONE Stop: 01/05/24 17:17 Last Admin: 01/05/24 17:25 Dose: 40 mg Documented By: MSG Methylprednisolone (Methylprednisolone 125 Mg/2 Ml Vial) 125 mg IV NOW STA Stop: 01/05/24 15:50 Last Admin: 01/05/24 16:08 Dose: 125 mg Documented By: PATRICIA Medical Decision Making Laboratory Data Attestation: I reviewed the patient's lab results. 01/05/24 15:40 01/05/24 15:40 Lab Results 01/05/24 01/05/24 01/05/24 Range/Units 15:40 15:45 16:02 WBC 10.68 (4.8-10.8) K/ul RBC 4.37 L (4.70-6.10) M/uL Hgb 13.0 L (14.0-18.0) g/dl Hct 40.0 L (42.0-52.0) % MCV 91.5 (80.0-100.0) fL MCH 29.7 (25.0-34.0) pg MCHC 32.5 (32.0-36.0) g/dL RDW Std Deviation 50.3 H (36.4-46.3) fL RDW Coeff of Reuben 15.0 H (11.5-14.5) % Plt Count 163 (130-400) K/uL MPV 10.5 (9.4-12.4) fL Immature Gran % (Auto) 0.4 % Neut % (Auto) 80.4 % Lymph % (Auto) 13.6 % [place] % (Auto) 5.1 % Eos % (Auto) 0.3 % Baso % (Auto) 0.2 % Neut # (Auto) 8.60 H (1.40-6.50) K/uL Lymph # (Auto) 1.45 (1.20-3.40) K/uL [place] # (Auto) 0.54 (0.11-0.59) K/uL Eos # (Auto) 0.03 (0.00-0.50) K/uL Baso # (Auto) 0.02 (0.00-0.20) K/uL Immature Gran # (Auto) 0.04 (0.01-0.20) K/uL PT 11.8 (9.0-12.0) Seconds INR 1.1 (0.9-1.1) APTT 33 H (21-31) Seconds PTT Ratio 1.2 VBG pH 7.39 (7.36-7.41) VBG pCO2 66 H (38-50) mmHg VBG pO2 20 mmHg VBG HCO3 40 mmol/L VBG O2 Saturation < 60.0 % VBG Base Excess 12.1 mEq/L Sodium 133 L (136-145) mmol/L Potassium 3.8 (3.5-5.1) mmol/L Chloride 90 L (98-107) mmol/L Carbon Dioxide 36 H (21-32) mmol/L Anion Gap 7 (3-11) BUN 26 H (6-23) mg/dl Creatinine 1.39 (0.6-1.4) mg/dl Est Cr Clr Drug Dosing 48.6 ml/min eGFR 50.30 BUN/Creatinine Ratio 18.7 (10-20) Glucose 134 H (70-99(Fasting)) mg/dl Lactate 1.5 (0.4-2.0) mmol/L Calcium 9.2 (8.6-10.3) mg/dl Total Bilirubin 0.9 (0.2-1.0) mg/dl AST 29 (13-39) U/L ALT 20 (7-52) U/L Alkaline Phosphatase 64 (34-104) U/L Troponin I High Sens 6.4 (0-20) pg/ml B-Natriuretic Peptide 294 H (0-100) pg/ml Total Protein 7.4 (6.0-8.3) gm/dl Albumin 4.0 (3.4-5.0) gm/dl Globulin 3.4 (2.5-4.0) gm/dl Albumin/Globulin Ratio 1.2 (0.9-2) Adenovirus (PCR) Not Detected (NotDetected) B. pertussis DNA (PCR) Not Detected (NotDetected) B.parapertussis DNA PCR Not Detected (NotDetected) C. pneumoniae DNA (PCR) Not Detected (NotDetected) Coronavirus OC43 (PCR) Not Detected (NotDetected) Coronavirus HKU1 (PCR) Not Detected (NotDetected) Coronavirus 229E (PCR) Not Detected (NotDetected) SARS-CoV-2 (PCR) DETECTED A (NotDetected) Coronavirus NL63 (PCR) Not Detected (NotDetected) Human Metapneumovir PCR Not Detected (NotDetected) Influenza Type A (PCR) Not Detected (NotDetected) Influenza Type B (PCR) Not Detected (NotDetected) M. pneumoniae (PCR) Not Detected (NotDetected) Parainfluenza 1 (PCR) Not Detected (NotDetected) Parainfluenza 2 (PCR) Not Detected (NotDetected) Parainfluenza 3 (PCR) Not Detected (NotDetected) Parainfluenza 4 (PCR) Not Detected (NotDetected) RSV (PCR) Not Detected (NotDetected) Entero/Rhino (PCR) Not Detected (NotDetected) ECG Data Attestation: I personally reviewed and interpreted this ECG as follows: Interpretation: Paced rhythm with rate of 84. QRS 166 QTc 515. No ectopy. [facility] Narrative 1533: The patient was evaluated in room A4. A complete history and physical exam was performed Cardiac monitoring: An order was placed for continuous cardiac monitoring. The monitor shows a rate of 80 with paced rhythm interpreted by me 1715: Vital signs stable. Patient still having diffuse wheezing status post 2 DuoNeb's and IV steroids. Patient does state he feels better after 2 DuoNeb's. Patient positive for COVID as well as appears to be fluid overloaded. Patient be treated with Eliquis and will be admitted. Impression & Plan COVID-19, Fluid overload, COPD exacerbation Discharge Plan Visit Data Chief Complaint: Shortness of Breath/Dyspnea Stated Complaint: WHEEZING, CONGESTION, COUGH, COPD ED Provider: Mo Soto Discharge Problem: COVID-19, Fluid overload, COPD exacerbation Patient Disposition: Admitted As Inpatient Forms Stand Alone Forms: [facility] Prescriptions Prescriptions: No Action atorvastatin [Lipitor] 20 mg Tablet 20 mg PO HS Hold Instructions: Resume on 01/04/23. ropinirole 1 mg Tablet 1 mg PO HS Hold Instructions: Resume on 01/04/23. Rx Instructions: administer 1-3 hours before bedtime diltiazem HCl 180 mg Capsule,Extended Release 24hr 180 mg PO QAM Hold Instructions: Resume on 01/04/23. olanzapine [Zyprexa] 5 mg Tablet 5 mg PO HS Hold Instructions: Resume on 01/04/23. levothyroxine 75 mcg Tablet 75 mcg PO QAM Hold Instructions: Resume on 01/04/23. tamsulosin 0.4 mg Capsule 0.4 mg PO QAM Hold Instructions: Resume on 01/04/23. albuterol sulfate 90 mcg/actuation HFA aerosol inhaler 2 puff INHALATION .EVERY 4-6 HOURS PRN (Reason: Shortness Of Breath Or Wheezing) Hold Instructions: Resume on 01/04/23. cyclosporine [Restasis] 0.05 % Dropperette 1 drp OPHTHALMIC (EYE) Q12H metoprolol tartrate 25 mg Tablet 25 mg PO BID Hold Instructions: Resume on 01/04/23. calcium carbonate-vitamin D3 [Calcium 600 + D(3)] 600 mg-10 mcg (400 unit) Tablet 1 tab PO QDD Hold Instructions: Resume on 01/04/23. guaifenesin [Mucinex] 600 mg Tablet Extended Release 12hr 600 mg PO BID Hold Instructions: Resume on 01/04/23. aspirin 81 mg Capsule 81 mg PO QAM Hold Instructions: Resume on 01/04/23. polyethylene glycol 3350 [Miralax] 17 gram Powder In Packet 17 g PO DAILY PRN (Reason: Constipation) Hold Instructions: Resume on 01/04/23. hydrocodone-acetaminophen 5-325 mg Tablet 1 tab PO Q6H PRN (Reason: .Pain 4-10) Hold Instructions: Resume on 01/04/23. ondansetron HCl 4 mg Tablet 4 mg PO Q4 PRN (Reason: Nausea) Hold Instructions: Resume on 01/04/23. sennosides-docusate sodium [Senokot-S] 8.6-50 mg Tablet 1 tab-cap PO DAILY PRN (Reason: Constipation) Hold Instructions: Resume on 01/04/23. Rx Instructions: Give @ lunch sodium chloride 0.9 % Solution 100 ml IV DIRECTED Hold Instructions: Resume on 01/04/23. Rx Instructions: for 1 day , stop 01/03/2023 @ 1334, 1000 ml bag, 100ml [per hr] pantoprazole [Protonix] 40 mg Tablet,Delayed Release (Dr/Ec) 40 mg PO BID Hold Instructions: Resume on 01/04/23. docusate sodium 100 mg Capsule 100 mg PO BID Hold Instructions: Resume on 01/04/23. mirtazapine 15 mg Tablet 30 mg PO HS Hold Instructions: Resume on 01/04/23. pregabalin [Lyrica] 100 mg Capsule 100 mg PO TID Hold Instructions: Resume on 01/04/23. Hyper-Ck 3.5 % Solution For Nebulization 4 ml INHALATION BID Hold Instructions: Resume on 01/04/23. potassium chloride 20 mEq Tablet Extended Release 20 meq PO DAILY Hold Instructions: Resume on 01/04/23. magnesium oxide 400 mg magnesium Tablet 400 mg PO DAILY Hold Instructions: Resume on 01/04/23. Naloxone 4mg/0.1ml 0 mg intranasal DIRECTED PRN (Reason: .opiod od) Hold Instructions: Resume on 01/04/23. propofol [Diprivan] 10 mg/mL Emulsion 20 mg IV Q5M PRNQty: 0 0RF metoprolol tartrate 5 mg/5 mL Solution 5 mg IV Q4 Qty: 0 0RF olanzapine 10 mg Recon Soln 5 mg IM HS PRNQty: 0 0RF Icu Electrolyte Replacement [Icu Electrolyte Replacement Protocol] 1 ea Not Applicable BID@06,18 Qty: 0 0RF Icu Protocol For Hyperglycemia 1 ea Not Applicable ACHS Qty: 0 0RF Vancomycin Consult Active [Consult] 1 ea Not Applicable UD PRNQty: 0 0RF levetiracetam [Keppra] 500 mg/5 mL solution 500 mg IV BID Rx Instructions: administer over 15 minutes acetaminophen 325 mg Tablet 650 mg PO Q4 PRN (Reason: Fever Or Pain) cefadroxil 500 mg capsule 500 mg PO Q12 Rx Instructions: ordered 12/29/23 take for 7 days Eliquis 2.5 mg tablet 2.5 mg PO AMHS fluticasone propion-salmeterol 250-50 mcg/dose blister with device 1 ea INHALATION BID [id number] C-Mn [Glucosamine Complex] 500-400 mg Capsule 1 cap PO QDD escitalopram oxalate 20 mg tablet 20 mg PO QAM lutein 20 mg Tablet 20 mg PO QDD Rx Instructions: give with meal/snack mirtazapine 30 mg tablet 30 mg PO HS Referrals Referrals: Anna King MD [Primary Care Provider] -
[2024-01-05 16:18] LABS: Albumin Globulin Ratio 1.2 (0.9-2); BUN Creatinine Ratio 18.7 (10-20); Bilirubin,Total 0.9 mg/dl (0.2-1.0); Calcium 9.2 mg/dl (8.6-10.3); Creatinine Clr Calc Pharmacy 48.6 ml/min; Globulin 3.4 gm/dl (2.5-4.0); Potassium 3.8 mmol/L (3.5-5.1); Total Protein 7.4 gm/dl (6.0-8.3)
[2024-01-05 16:23] LABS: Troponin I High Sensitivity 6.4 pg/ml (0-20)
[2024-01-05 16:28] LABS: INR 1.1 (0.9-1.1); Partial Thromboplastin Ratio 1.2; Partial Thromboplastin Time 33 Seconds (21-31); Prothrombin Time 11.8 Seconds (9.0-12.0)
--- NOTE | 2024-01-05 16:30 | XRay Report ---
EXAM: Radiograph of the Chest 1 View INDICATION: Weakness and shortness of breath. TECHNIQUE: Frontal view of the chest. Image obtained at 4:09 PM. COMPARISON: 6:48 AM the same day FINDINGS: Lungs and pleural spaces: Shallow inspiration with stable basilar atelectasis and vascular congestion. Trace pleural effusions unchanged. No pneumothorax. Heart: Stable cardiomegaly. Right ventricular pacing device intact and unchanged. Mediastinum: Normal contour. Bones/joints: No fracture, erosion or dislocation. Soft tissues: No abnormality noted. No radiopaque foreign body noted. Tubes, lines and devices: Lines and tubes removed. Upper abdomen: No abnormality noted. IMPRESSION: Shallow inspiration with stable basilar atelectasis and vascular congestion. ACT 112: Negative or not required by law. Electronically signed by Arianna Farr 01-05-2024 4:28 PM
--- NOTE | 2024-01-05 16:54 | Electrocardiogram Report ---
Test Reason : Blood Pressure : */* mmHG Vent. Rate : 84 BPM Atrial Rate : 92 BPM P-R Int : * ms QRS Dur : 166 ms QT Int : 436 ms P-R-T Axes : * -89 82 degrees QTcB Int : 515 ms Ventricular-paced rhythm Abnormal ECG When compared with ECG of 03-Jan-2023 09:53, Electronic ventricular pacemaker has replaced Atrial fibrillation Vent. rate has decreased by 54 bpm Confirmed by Brenden Markham ([id number]) on 01/05/2024 4:54:17 PM Referred By: Confirmed By: Brenden Markham
[2024-01-05 17:01] LABS: Adenovirus PCR Not Detected (NotDetected); Bordetella parapertussis PCR Not Detected (NotDetected); Bordetella pertussis PCR Not Detected (NotDetected); Chlamydia pneumoniae PCR Not Detected (NotDetected); Coronavirus 229E PCR Not Detected (NotDetected); Coronavirus CoV-2 (COVID19)PCR DETECTED (NotDetected); Coronavirus HKU1 PCR Not Detected (NotDetected); Coronavirus NL63 PCR Not Detected (NotDetected); Coronavirus OC43PCR Not Detected (NotDetected); Human Metapneumovirus PCR Not Detected (NotDetected); Influenza A PCR Not Detected (NotDetected); Influenza B PCR Not Detected (NotDetected); Mycoplasma pneumoniae PCR Not Detected (NotDetected); Parainfluenza Virus 1 PCR Not Detected (NotDetected); Parainfluenza Virus 2 PCR Not Detected (NotDetected); Parainfluenza Virus 3 PCR Not Detected (NotDetected); Parainfluenza Virus 4 PCR Not Detected (NotDetected); Respiratory Syncytial VirusPCR Not Detected (NotDetected); Rhinovirus/Enterovirus PCR Not Detected (NotDetected)
[2024-01-05] MEDS: FUROSEMIDE 40 MG/4 ML VIAL IV ONE (17:25)
--- NOTE | 2024-01-05 17:28 | History & Physical Report ---
Date of Service January 05, 2024 Assessment & Plan (1) COVID-19: (2) Acute asthma exacerbation: (3) Acute on chronic respiratory failure with hypoxia and hypercapnia: Plan Patient is a 83-year-old male with past medical history of recurrent aspiration pneumonitis with history of esophageal achalasia, restrictive lung disease, bronchiectasis, RUDY on BiPAP, asthma, tachybradycardia syndrome status post pacemaker, chronic diastolic heart failure, CKD, atrial fibrillation, achalasia, BPH, history of prostatic cancer, depression, generalized anxiety disorder, PTSD, gout, hyperlipidemia and hypothyroidism who presents to the hospital with progressive shortness of breath. COVID-19 infection Acute on chronic hypoxic respiratory failure Asthma exacerbation Possible pneumonia Past medical history of recurrent aspiration pneumonitis, restrictive lung disease, bronchiectasis, asthma; presents with shortness of breath and fatigue. Respiratory viral panel positive for COVID-19 infection Chest x-ray shows shallow inspiration with stable bibasilar atelectasis and vascular congestion. BNP mildly elevated to [address] chest without contrast to better evaluate the lungs, rule out pneumonia; zosyn and doxycycline ordrered emperically. Start [id number] DuoNeb every 4 hour. IV methylprednisolone 40 mg every 8 hours Hypertonic saline, flutter valve for airway clearance therapy Obtain sputum culture, MRSA swab. Chronic conditions CKDcreatinine at baseline. Avoid nephrotoxic agent History of achalasia status post balloon dilationreports that he tolerates regular food. Will consider swallow evaluation if clinical suspicion of aspiration is high with a CT chest. Tachybradycardia syndrome status post pacemaker, atrial fibrillationcontinue on diltiazem, metoprolol Eliquis Chronic diastolic heart failureappears compensated, continue on metoprolol, spironolactone, torsemide CADcontinue on aspirin and Lipitor Hypothyroidismcontinue on levothyroxine OSAcontinue BiPAP Wound on left legcontinue wound VAC. He is finishing up on 7 day course of cefadroxil; will DC at discharge as he is receiving Zosyn. DVT prophylaxis Eliquis Full code I have reviewed the advanced practitioner's documentation, and I agree with, and take responsibility for the plan of care Time spent evaluating patient, direct bedside care, chart review, placing orders, interpretation of diagnostic studies, discussion with consultants, patient, and family members, as well as other required patient management activities is 75 minutes History of Present Illness Chief Complaint: SOB/Dyspnea, Difficulty Breathing Primary Care Provider: Anna King MD Cristhian May (Jim) is an 83y/o M with PMHx significant for gout, dyslipidemia, acquired hypothyroidism, pancreatic cyst, chronic hypoxic respiratory failure with hypercapnia [on 2L via NC at baseline], restrictive lung disease, bronchiectasis, chronic frontal sinusitis, RUDY on BiPAP, mild persistent asthma, interstitial pulmonary disease, tacky-noni syndrome s/p pacemaker placement, CKD stage III [baseline Cr ~1.4-1.7], chronic diastolic congestive heart failure, HTN, permanent atrial fibrillation, CAD, achalasia, BPH, history of prostate cancer, calcium pyrophosphate deposition disease, chronic back pain, TIBURCIO/PTSD and schizophrenia who presented to the ED for evaluation secondary to worsening SOB. History obtained from the patient, family at bedside ( + son-in-law) and associated chart review. Patient with worsening SOB over the past week. He has also noticed increased sinus drainage in addition to a mildly productive cough of yellowish sputum production. Denies any hemoptysis. No reported fevers, body aches or chills that the patient or his family can recall. He currently lives at home with his in a one-story home. He ambulates with a walker or cane at baseline however he has not been able to ambulate far over the past couple of days secondary to his worsening respiratory status. His SOB significantly worsens with activity/exertion. His reports that his oxygen saturation was around 83% this morning on 2L via nasal cannula, which he wears chronically at baseline. She had increased his O2 to 4-6L with some improvement in his breathing. He he has been extremely wheezy over the past couple of days. He is currently completing a 7-day course of oral cefadroxil due to a left lower extremity posterior calf wound which is being managed by Dr. Dylan Rankin [Podiatry] at [facility]. He has a wound VAC in place over this region which is not to be removed until 01/10/2024. Patient did have a mechanical fall about a week and a half ago. He sustained bruising to his right posterior shoulder region and right hip region in addition to a right forearm skin tear. No other traumas or falls since then. CXR in the ED revealed shallow inspiration with stable basilar atelectasis and vascular congestion. He is now s/p 40mg IV Lasix, DuoNeb x 2 and 125mg IV Solu- Medrol. Patient was saturating in the mid 90s SpO2 on 3.5L via NC at the time of our discussion in the ED. Of Note: Patient was admitted to [facility] on 01/03/23 with acute aspiration pneumonia and aspirated in the ED and was in atrial fibrillation with RVR on arrival. He was intubated and was transferred to [facility] [place] for further evaluation and for possible myotomy/pneumatic dilation. Chest CT at [facility] showed food throughout the esophagus with compression of left atrium. He underwent bronchoscopy that was positive for MRSA. He underwent EGD and had dilation on 01/08/23. He was extubated on 01/09/23. He was eventually discharged to [facility] on 01/15/23. Allergies Allergy/AdvReac Type Severity Reaction Status Date / Time oxycodone Allergy Unknown Flushing Verified 01/03/23 02:35 propoxyphene Allergy Unknown Flushing Verified 01/03/23 02:35 niacin AdvReac Unknown flushed Verified 01/03/23 02:35 feeling Home Medications Medication Instructions Recorded Confirmed Type albuterol sulfate 90 mcg/actuation 2 puff inhalation .EVERY 4-6 HOURS 08/03/22 01/05/24 History aerosol inhaler PRN Shortness Of Breath Or Wheezing aspirin 81 mg capsule 81 mg PO QAM 08/03/22 01/05/24 History atorvastatin 20 mg tablet (Lipitor) 20 mg PO HS 08/03/22 01/05/24 History calcium 600 mg (as 1 tab PO QDD 08/03/22 01/05/24 History carbonate)-vitamin D3 10 mcg (400 unit) tablet (Calcium 600 + D(3)) cyclosporine 0.05 % eye drops in a 1 drp ophthalmic (eye) Q12H Dry 08/03/22 01/05/24 History dropperette (Restasis) Eye(S) diltiazem HCl 180 mg 180 mg PO QAM 08/03/22 01/05/24 History capsule,extended release 24 hr guaifenesin 600 mg tablet, 600 mg PO BID PRN cough or 08/03/22 01/05/24 History extended release 12 hr (Mucinex) congestion levothyroxine 75 mcg tablet 75 mcg PO QAM 08/03/22 01/05/24 History olanzapine 5 mg tablet (Zyprexa) 5 mg PO HS 08/03/22 01/05/24 History tamsulosin 0.4 mg capsule 0.4 mg PO QAM 08/03/22 01/05/24 History magnesium oxide 400 mg PO HS 01/03/23 01/05/24 History acetaminophen 325 mg tablet 650 mg PO Q4 PRN Fever Or Pain 01/05/24 01/05/24 History albuterol sulfate 2.5 mg/3 mL 2.5 mg continuous nebulization Q4 01/05/24 01/05/24 History (0.083 %) solution for nebulization PRN Shortness Of Breath Or Wheezing apixaban 2.5 mg tablet (Eliquis) 2.5 mg PO AMHS 01/05/24 01/05/24 History cefadroxil 500 mg capsule 500 mg PO Q12 01/05/24 01/05/24 History escitalopram oxalate 20 mg tablet 20 mg PO QAM 01/05/24 01/05/24 History fluticasone 250 mcg-salmeterol 50 1 ea inhalation BID 01/05/24 01/05/24 History mcg/dose blistr powdr for inhalation eskvzfcopaj-avbeoyxpt-fin C-Mn 500 1 cap PO QDD 01/05/24 01/05/24 History mg-400 mg capsule leuprolide (3 month) 22.5 mg (3 22.5 mg subcut .EVERY 3 MONTHS 01/05/24 01/05/24 History month) subcutaneous syringe lutein 20 mg tablet 20 mg PO QDD 01/05/24 01/05/24 History melatonin 5 mg tablet 5 mg PO HS 01/05/24 01/05/24 History metoprolol succinate 50 mg 50 mg PO AMHS 01/05/24 01/05/24 History tablet,extended release 24 hr mirtazapine 30 mg tablet 30 mg PO HS 01/05/24 01/05/24 History multivitamin with iron 1 tab PO QDD 01/05/24 01/05/24 History spironolactone 25 mg tablet 12.5 mg PO Q OTHER DAY 01/05/24 01/05/24 History torsemide 20 mg tablet 60 mg PO QAM 01/05/24 01/05/24 History Past Med/Surg History Problem List Acute asthma exacerbation COPD exacerbation (Acute) Fluid overload (Acute) COVID-19 (Acute) Atrial fibrillation with RVR Aspiration into airway Acute on chronic diastolic (congestive) heart failure Acute on chronic respiratory failure with hypoxia and hypercapnia Acute respiratory failure (Acute) Food impaction of esophagus Dysphagia Post-op pneumonia Abnormal CT of the abdomen Thoracic spinal stenosis Myelopathy concurrent with and due to spinal stenosis of thoracic region Acute kidney injury superimposed on CKD Lumbar spinal stenosis Chronic respiratory failure Sleep apnea bipap; 3 lpm hs Restless leg syndrome Chronic kidney disease (CKD), stage III (moderate) Anxiety and depression Hypothyroidism Hyperlipidemia HTN (hypertension) Weakness (Acute) Chronic heart failure with preserved ejection fraction Status post left hip replacement Aortic stenosis, mild Chronic atrial fibrillation Acute on chronic heart failure with preserved ejection fraction (HFpEF) (Acute) Tachy-noni syndrome s/p pacemaker placement 2017 Medical History Encounter for pre-operative examination Prostate cancer Around 2013- s/p brachytherapy - Lupron q 3 months Pulmonary disease restrictive lung disease, hypoxic respiratory failure, hypercapnic respiratory failure , bronchiectasis, 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, 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 per records Aortic stenosis Mild per 2021 ECHO Diastolic heart failure Compensated per cardio records Hx of pyoderma gangrenosum BLE On anticoagulant therapy eliquis A-fib follows w/ [facility] cardio, [place] on Eliquis Pacemaker medtronic, last checked 05/13/22, remotely Asthmatic bronchitis Breathing stable - chronic (hx of smoker) Surgical History History of surgery Rectal fissure repair S/P placement of cardiac pacemaker Hx of colonoscopy Hx of tonsillectomy Hx of total hip arthroplasty RIGHT Family History Other No family history of adverse response to anesthesia Social History Smoking Status: Former smoker Tobacco Type: Cigarettes Second Hand Exposure: No; Do You Dip or Chew Tobacco: No; Hx Alcohol Use: No Hx Substance Use: No Preferred Language: Bruneian Communication Ability: Unable Communication Ability Comment: Patient intubated and sedated Ssrs Report Developer Required: No Beliefs That Will Affect Care: None Current Living Situation: Rehab Feels Safe at Home: Yes Assistive Devices: Cane, Oxygen - Continuous and Walker Review of Systems Review of Systems: At least ten systems reviewed and negative, except as noted in the HPI. Physical Exam Physical Exam: Constitutional: Alert oriented x 3; not in any distress. Respiratory: Bilateral wheezes throughout the lungs. Cardiovascular: Irregular, no murmur, no edema Vessels: no JVD or carotid bruit Chest: normal inspection of chest Abdomen: normal bowel sounds, soft, nontender, no hepatosplenomegaly Musculoskeletal: Wound present on left leg with wound VAC in place. Neurologic: PERRL, EOMI, accommodation nl, no face palsy, no dysarthria CN's II- XI intact bilaterally and moves all extremities Psychiatric: A+Ox3, euthymic affect Results & Data Results & Data Vital Signs (Past 12 Hours) Vital Signs Temp Pulse Pulse Resp BP BP Pulse Ox 01/05/24 16:45 73 23 89 L 01/05/24 16:12 100 01/05/24 16:10 100 01/05/24 16:10 99 H 21 114/71 100 01/05/24 16:10 97 01/05/24 16:09 114/71 01/05/24 16:09 76 28 H 92 01/05/24 16:00 129/74 01/05/24 15:59 74 01/05/24 15:23 36.6 C 82 22 115/63 93 O2 Del Method O2 Flow Rate 01/05/24 16:45 01/05/24 16:12 Nebulizer 01/05/24 16:10 Nebulizer 01/05/24 16:10 Nebulizer 01/05/24 16:10 Nasal Cannula 2 01/05/24 16:09 01/05/24 16:09 01/05/24 16:00 01/05/24 15:59 01/05/24 15:23 Nasal Cannula 2 Laboratory Results Short CBC 01/05/24 Range/Units 15:40 WBC 10.68 (4.8-10.8) K/ul Hgb 13.0 L (14.0-18.0) g/dl Hct 40.0 L (42.0-52.0) % Plt Count 163 (130-400) K/uL BMP 01/05/24 15:40 Sodium 133 L Potassium 3.8 Chloride 90 L Carbon Dioxide 36 H BUN 26 H Creatinine 1.39 Glucose 134 H Calcium 9.2 Liver Function 01/05/24 Range/Units 15:40 Total Bilirubin 0.9 (0.2-1.0) mg/dl AST 29 (13-39) U/L ALT 20 (7-52) U/L Alkaline Phosphatase 64 (34-104) U/L Albumin 4.0 (3.4-5.0) gm/dl Diagnostic Findings Chest X-Ray 01/05/24 15:29 EXAM: Radiograph of the Chest 1 View INDICATION: Weakness and shortness of breath. TECHNIQUE: Frontal view of the chest. Image obtained at 4:09 PM. COMPARISON: 6:48 AM the same day FINDINGS: Lungs and pleural spaces: Shallow inspiration with stable basilar atelectasis and vascular congestion. Trace pleural effusions unchanged. No pneumothorax. Heart: Stable cardiomegaly. Right ventricular pacing device intact and unchanged. Mediastinum: Normal contour. Bones/joints: No fracture, erosion or dislocation. Soft tissues: No abnormality noted. No radiopaque foreign body noted. Tubes, lines and devices: Lines and tubes removed. Upper abdomen: No abnormality noted. IMPRESSION: Shallow inspiration with stable basilar atelectasis and vascular congestion. ACT 112: Negative or not required by law. Electronically signed by Arianna Farr 01-05-2024 4:28 PM Medications Administered Discontinued Medications Albuterol (Albut/Ipratrop 3mg/0.5mg Neb 3 Ml Vial) 3 ml NEB NOW STA; Protocol Stop: 01/05/24 15:50 Last Admin: 01/05/24 16:08 Dose: 3 ml Documented By: PATRICIA Albuterol (Albut/Ipratrop 3mg/0.5mg Neb 3 Ml Vial) 3 ml NEB NOW STA; Protocol Stop: 01/05/24 15:51 Last Admin: 01/05/24 16:46 Dose: 3 ml Documented By: PATRICIA Furosemide (Furosemide 40 Mg/4 Ml Vial) 40 mg IV ONE ONE Stop: 01/05/24 17:17 Last Admin: 01/05/24 17:25 Dose: 40 mg Documented By: Methylprednisolone (Methylprednisolone 125 Mg/2 Ml Vial) 125 mg IV NOW STA Stop: 01/05/24 15:50 Last Admin: 01/05/24 16:08 Dose: 125 mg Documented By: PATRICIA Code Status & VTE Plan Code Status FULL CODE (2) Acute asthma exacerbation Asthma persistence: unspecified Asthma severity: unspecified severity Qualified Code(s): J45.901 - Unspecified asthma with (acute) exacerbation
[2024-01-05] MEDS: PIPERACILLIN/TAZOBACTAM 4.5 GM/100 ML BAG IV ONE (18:53)
[2024-01-05] MEDS ORDERED: POLYETHYLENE (MIRALAX) 17 GM PACK PO PRN (21:19)
[2024-01-05] MEDS ORDERED: methylPREDNISolone 125 MG/2 ML VIAL IV SCH (21:19)
[2024-01-05] MEDS ORDERED: ACETAMINOPHEN 325 MG TAB PO PRN (21:19)
[2024-01-05] MEDS ORDERED: PROMETHAZINE 6.25 MG/50.25 ML BAG IV PRN (21:19)
--- NOTE | 2024-01-05 21:22 | CT Scan Report ---
Exam(s): CT CHEST Without Contrast EXAM: CT Chest Without Intravenous Contrast CLINICAL HISTORY: Concern for pneumonia. TECHNIQUE: Axial computed tomography images of the chest without intravenous contrast. CTDI is 28.14 mGy and DLP is 899.64 mGy-cm. Automated exposure control was utilized for the study. A dose lowering technique was utilized adhering to the principles of ALARA. COMPARISON: CT chest 01/03/2023 FINDINGS: Lungs: Bibasilar airspace opacities, left greater than right, favors the appearance of atypical infection and/or aspiration. Pleural space: Unremarkable. No pneumothorax. No significant effusion. Heart: Coronary artery calcifications are present. No cardiomegaly. No significant pericardial effusion. Bones/joints: There are degenerative changes of the spine. No acute fracture. No dislocation. Soft tissues: Unremarkable. Vasculature: Moderate atherosclerosis. Lymph nodes: Unremarkable. No enlarged lymph nodes. Tubes, lines and devices: There is a right cardiac pacer. IMPRESSION: Bibasilar airspace opacities, left greater than right, favors the appearance of atypical infection and/or aspiration. Electronically signed by: Antonella Hidalgo MD 01/05/24 21:21 PM
--- NOTE | 2024-01-05 22:56 | Communication Note ---
Date of Service: January 05, 2024 Overnight developments 01/04, 1050P Patient noted to be lethargic as per RN. O2 sats 98 on 3 L Code purple later called. BSG 170s PPE Obese Obtunded No respiratory distress Nasal cannula in place VBG pH 7.37, pCO2 66 Serum creatinine 1.41 from 1.39 in a.m. AP Encephalopathy Hypoxemic, hypercapnic respiratory failure secondary to asthma exacerbation from severe COVID-19 pneumonia/possible aspiration pneumonia ARF Rule out structural intracranial pathology given Eliquis Rx BiPAP Recheck VBG after 1 hour Remdesivir for severe COVID-19 pneumonia Pulmonary consult if without improvement Monitor creatinine response to IV albumin, hold home diuretic for now CT head Re: encephalopathy, Eliquis Rx Appropriate to hold melatonin and multiple neuropsychotropic medications for now given decreased mentation. Patient updated of developments over the phone. 01/05, 12:20 AM Patient arousable now and able to answer orientation questions appropriately as per RN.
[2024-01-05 23:11] LABS: Base Excess VBG 10.2 mEq/L; HCO3 VBG 38 mmol/L; Oxygen Saturation VBG 72.6 %; PCO2 VBG 66 mmHg (38-50); PO2 VBG 45 mmHg; pH VBG 7.37 (7.36-7.41)
[2024-01-05] MEDS: MAGNESIUM SULFATE / D5W 1 GM/100 ML BAG IV ONE (23:13)
[2024-01-05] MEDS: OPTIRAY 320 125ml IV ONE (23:39)
[2024-01-05] MEDS: SODIUM CHLOR 7% 4 ML NEB NEB SCH (23:39)
[2024-01-05] MEDS: ALBUT/IPRATROP 3MG/0.5MG NEB 3 ML VIAL NEB SCH (23:39)
--- NOTE | 2024-01-06 00:01 | CT Scan Report ---
Exam(s): CTA HEAD With Contrast IV Amt: 118ml EXAM: CT Angiography Head With Intravenous Contrast CLINICAL HISTORY: Altered mental status. TECHNIQUE: Axial computed tomographic angiography images of the head with intravenous contrast. 3D and MIPS images were created and reviewed. CTDI is 46.85 mGy and DLP is 1404.25 mGy-cm. Automated exposure control was utilized for the study. A dose lowering technique was utilized adhering to the principles of ALARA. MIP reconstructed images were created and reviewed. CONTRAST: Patient received 118ml of IV contrast COMPARISON: No relevant prior studies available. FINDINGS: Right internal carotid artery: Mild atherosclerosis of the intracranial portions of the right internal carotid artery without significant stenosis. No aneurysm. Right anterior cerebral artery: Unremarkable. No occlusion or significant stenosis. No aneurysm. Right middle cerebral artery: Unremarkable. No occlusion or significant stenosis. No aneurysm. Right posterior cerebral artery: There is origin of the right CLAIMS ANALYST, normal variant. No occlusion or significant stenosis. No aneurysm. Right vertebral artery: Unremarkable as visualized. Left internal carotid artery: Mild atherosclerosis of the intracranial portion of the left internal carotid artery without significant stenosis. No aneurysm. Left anterior cerebral artery: Unremarkable. No occlusion or significant stenosis. No aneurysm. Left middle cerebral artery: Unremarkable. No occlusion or significant stenosis. No aneurysm. Left posterior cerebral artery: Unremarkable. No occlusion or significant stenosis. No aneurysm. Left vertebral artery: Unremarkable as visualized. Basilar artery: Unremarkable. No occlusion or significant stenosis. No aneurysm. IMPRESSION: No acute findings in the arteries of the head/brain. Communications: Call Doctor Stroke Electronically signed by: Antonella Hidalgo MD 01/05/24 23:59 PM
--- NOTE | 2024-01-06 00:02 | CT Scan Report ---
Exam(s): CT HEAD Without Contrast EXAM: CT Head Without Intravenous Contrast CLINICAL HISTORY: Altered mental status. TECHNIQUE: Axial computed tomography images of the head/brain without intravenous contrast. CTDI is 46.85 mGy and DLP is 1404.25 mGy-cm. Automated exposure control was utilized for the study. A dose lowering technique was utilized adhering to the principles of ALARA. COMPARISON: CT head 01/03/2023 FINDINGS: Brain: No intracranial hemorrhage, mass-effect or midline shift. No abnormal extra axial fluid. No evidence of acute infarct. Mild periventricular white matter hypodensities are most consistent with chronic microangiopathy. Ventricles: Unremarkable. No ventriculomegaly. Bones/joints: Unremarkable. No acute fracture. Soft tissues: Unremarkable. Sinuses: There is a fluid level of the right maxillary sinus and right sphenoid sinus concerning for acute sinusitis. Mild mucosal thickening of the ethmoid sinus is also noted. Mastoid air cells: Unremarkable as visualized. No mastoid effusion. IMPRESSION: 1. No acute intracranial finding. 2. There is a fluid level of the right maxillary sinus and right sphenoid sinus concerning for acute sinusitis. Communications: Call Doctor Stroke Electronically signed by: Antonella Hidalgo MD 01/06/24 00:00 AM
--- NOTE | 2024-01-06 00:03 | CT Scan Report ---
Exam(s): CTA NECK With Contrast IV Amt: 118ml EXAM: CT Angiography Neck With Intravenous Contrast CLINICAL HISTORY: Altered mental status. TECHNIQUE: Routine carotid CT angiography protocol was performed with intravenous contrast. NASCET criteria using the distal ICAs for comparison were used for evaluation of stenoses. MIPS images were created and reviewed. CTDI is 46.85 mGy and DLP is 1404.25 mGy-cm. Automated exposure control was utilized for the study. A dose lowering technique was utilized adhering to the principles of ALARA. MIP reconstructed images were created and reviewed. CONTRAST: Patient received 118ml of IV contrast COMPARISON: None. FINDINGS: VASCULATURE: Right common carotid artery: Unremarkable. No occlusion or significant stenosis. No dissection. Right internal carotid artery: There is atherosclerosis of the right carotid bulb without significant stenosis. Mild atherosclerosis of the proximal right ICA without significant stenosis by NASCET criteria. No dissection. Right external carotid artery: Unremarkable. No occlusion. Right vertebral artery: Unremarkable. No occlusion or significant stenosis. No dissection. Left common carotid artery: Unremarkable. No occlusion or significant stenosis. No dissection. Left internal carotid artery: There is atherosclerosis of the left carotid bulb without significant stenosis. Mild atherosclerosis of the proximal left ICA without significant stenosis by NASCET criteria. No dissection. Left external carotid artery: Unremarkable. No occlusion. Left vertebral artery: Unremarkable. No occlusion or significant stenosis. No dissection. NECK: Bones/joints: There are degenerative changes of the spine. No acute fracture. Soft tissues: Unremarkable. Lung apices: Clear. CAROTID STENOSIS REFERENCE USING NASCET CRITERIA: % ICA stenosis = (1 - narrowest ICA diameter/diameter of distal cervical ICA) x 100. Mild - <50% stenosis. Moderate - 50-69% stenosis. Severe - 70-94% stenosis. Near occlusion - 95-99% stenosis. Occluded - 100% stenosis. IMPRESSION: No acute findings of the arteries of the neck. Communications: Call Doctor Stroke Electronically signed by: Antonella Hidalgo MD 01/06/24 00:01 AM
[2024-01-06 00:10] LABS: Calcium 9.1 mg/dl (8.6-10.3)
[2024-01-06] MEDS: APIXABAN 2.5 MG TAB PO SCH (00:10)
[2024-01-06] MEDS: DOXYCYCLINE HYCLATE 100 MG CAP PO SCH (00:10)
[2024-01-06] MEDS: ADVANCED PROBIOTIC 625 MG CAPSULE PO SCH (00:10)
[2024-01-06] MEDS: OLANZapine 5 MG TABLET PO SCH (00:11)
[2024-01-06] MEDS: FLUTICASONE/VILANTEROL 200/25MCG 14 PUFFS/INHALER INH SCH (00:11)
[2024-01-06] MEDS: ATORVASTATIN 20 MG TAB PO SCH (00:11)
[2024-01-06] MEDS: MIRTAZAPINE TAB 15 MG TAB PO SCH (00:11)
[2024-01-06] MEDS: guaiFENesin 600 MG TABCR PO SCH (00:11)
[2024-01-06] MEDS: METOPROLOL SUCC 50MG EXT REL TAB PO SCH (00:11)
[2024-01-06] MEDS: PIPERACILLIN/TAZOBACTAM 4.5 GM/100 ML BAG IV SCH (00:12)
[2024-01-06] MEDS: methylPREDNISolone 40 MG in SYRINGE 0 ML IV SCH (00:12)
[2024-01-06] MEDS: POTASSIUM CHLORIDE / WTR 10 MEQ/100 ML PLCT IV SCH (00:13)
[2024-01-06 00:15] LABS: BUN Creatinine Ratio 19.1 (10-20); Creatinine Clr Calc Pharmacy 47.9 ml/min
[2024-01-06] MEDS ORDERED: GLUCAGON FOR INJ 1 MG VIAL SQ PRN (00:23)
[2024-01-06] MEDS ORDERED: DEXTROSE 50% 50 ML SYRINGE IV PRN (00:23)
[2024-01-06] MEDS ORDERED: GLUCOSE 10 TAB/TUBE PO PRN (00:23)
[2024-01-06] MEDS ORDERED: CARBOHYDRATES FOR HYPOGLYCEMIA PO PRN (00:23)
[2024-01-06] MEDS ORDERED: GLUCOSE 40% GEL 15 GM TUBE PO PRN (00:23)
[2024-01-06 00:49] LABS: HCO3 VBG 39 mmol/L; Oxygen Saturation VBG 75.4 %; PCO2 VBG 64 mmHg (38-50); PO2 VBG 45 mmHg; pH VBG 7.39 (7.36-7.41)
[2024-01-06 00:57] LABS: Thyroid Stimulating Hormone 1.663 uIu/ml (0.300-4.500)
[2024-01-06] MEDS: INSULIN ASPART PER UNIT CHARGE SC SCH ×2 (01:21→13:20)
[2024-01-06] MEDS: REMDESIVIR 200 MG in SODIUM CHLORIDE 0.9% 210 ML IV STA (02:23)
[2024-01-06] MEDS: ALBUMIN 25% 12.5 GM/50 ML VIAL IV ONE (02:23)
[2024-01-06] MEDS ORDERED: OLANZapine 10 MG/2.1 ML SDV IM PRN (04:30)
[2024-01-06] MEDS: LEVOTHYROXINE SODIUM 75 MCG TABLET PO SCH (06:04)
[2024-01-06 06:38] LABS: Base Excess VBG 9.7 mEq/L; HCO3 VBG 38 mmol/L; PCO2 VBG 65 mmHg (38-50); PO2 VBG 39 mmHg; pH VBG 7.37 (7.36-7.41)
[2024-01-06 06:52] LABS: Hematocrit (blood only) 34.5 % (42.0-52.0); Hemoglobin 11.5 g/dl (14.0-18.0); Mean Corpuscular Hemoglobin 30.3 pg (25.0-34.0); Mean Corpuscular Hgb Conc 33.3 g/dL (32.0-36.0); Mean Platelet Volume 10.6 fL (9.4-12.4); Platelet Count 137 K/uL (130-400); RDW Coefficient of Variation 14.6 % (11.5-14.5); RDW Standard Deviation 49.1 fL (36.4-46.3); Red Blood Count 3.79 M/uL (4.70-6.10); White Blood Count 8.24 K/ul (4.8-10.8)
[2024-01-06 07:22] LABS: BUN Creatinine Ratio 22.6 (10-20); Calcium 8.7 mg/dl (8.6-10.3); Creatinine Clr Calc Pharmacy 58.2 ml/min; Magnesium 2.5 mg/dl (1.7-2.4); Phosphorus 3.4 mg/dl (2.5-4.9); Potassium 4.1 mmol/L (3.5-5.1)
[2024-01-06 07:27] LABS: Estimated Average Glucose 137 mg/dl; Hemoglobin A1C 6.4 % (4.5-5.6)
[2024-01-06] MEDS ORDERED: TORSEMIDE 20 MG TAB PO SCH (09:00)
--- NOTE | 2024-01-06 09:33 | Pulmonary Consultation ---
Date of Consultation January 06, 2024 Assessment & Plan (1) Acute sinusitis: (2) COPD exacerbation: (3) COVID-19: Plan Impression: 83-year-old male admitted with shortness of breath and wheezing found to have acute sinusitis on CT scan. CT of his chest demonstrates only some atelectatic/basilar densities possibly consistent with aspiration event. He had an episode of altered mental status last evening which was presumptively ascribed to hypercarbic respiratory failure although his pH was not much different from baseline and CO2 was at his baseline levels. His sensorium cleared without significant change in his blood gas so I doubt this was contributing. He is found to be COVID-positive but again has minimal parenchymal disease currently. Recommendations: 1. COVID-positive: Minimal parenchymal findings at this point in time. I definitely do not think he qualifies for remdesivir and the utility of steroids is somewhat questionable however he will receive steroids for an exacerbation of his reported asthma/COPD. No PFTs are available. Short burst of prednisone would be reasonable. Can continue Breo, as needed nebulized bronchodilators 2. Chronic hypercarbic respiratory failure: The patient carries a diagnosis of sleep disordered breathing but I am unable to ascertain the severity as a sleep study is not available in our system. For now would recommend nightly CPAP at 10 cm of water. He can follow-up with the [facility] sleep clinic in the outpatient setting. Okay to eat from my perspective. Defer diet to primary service 3. Sinusitis: Management per primary admitting service. 4. Questionable aspiration pneumonia: White count is normal. Lactate normal. Procalcitonin not assessed. Patient does not have risk factors for resistant gram-negative rods. No indication for antipseudomonal coverage. Will place the patient on Augmentin for 5 days which should be adequate coverage. 5. Out of bed to chair is much as possible. Incentive spirometry. Thanks for the opportunity participating the care of this patient. Will follow peripherally but suspect the patient should respond favorably over the next 24 to 48 hours History of Present Illness Attending Physician: Rosy Lacey MD History of Present Illness Asked by hospitalist to assist in evaluation and management of this patient with chronic hypoxemic hypercarbic respiratory failure admitted with COVID. History is obtained from discussion with the patient as well as review of electronic medical record. Patient is an 83-year-old male with a multitude of chronic medical conditions including COPD, atrial fibrillation, achalasia status post esophageal dilatation combo sleep disordered breathing, chronic kidney disease, and heart failure with preserved ejection fraction who presented to the emergency room yesterday with shortness of breath and wheezing. He is found to be COVID-positive. In the emergency room he was treated with steroids and DuoNebs. He was admitted to the hospitalist service. Overnight patient was reportedly lethargic. Does not appear that he was using CPAP or BiPAP nightly. Oxygen saturations were stable. Venous blood gas showed chronic hypercarbic respiratory failure with a pH of 7.37 and his CO2 of 66 which is chronic. He had imaging performed and was placed on BiPAP. Blood gas 1 hour later showed no significant change. Some of his medications were held and imaging of his brain was conducted which showed no significant intracranial abnormalities however there was a fluid level in the right maxillary sinus and right sphenoid sinus consistent with acute sinusitis. This morning the patient is awake on BiPAP. He states he is having no respiratory issues currently. Feels his breathing is okay. He was removed from BiPAP and placed on oxygen at 3 L/min maintain oxygen saturations around 97%. Heart rate remained persistently tachycardic and irregular rhythm. Allergies Allergy/AdvReac Type Severity Reaction Status Date / Time oxycodone Allergy Unknown Flushing Verified 01/03/23 02:35 propoxyphene Allergy Unknown Flushing Verified 01/03/23 02:35 niacin AdvReac Unknown flushed Verified 01/03/23 02:35 feeling Home Medications Medication Instructions Recorded Confirmed Type albuterol sulfate 90 mcg/actuation 2 puff inhalation .EVERY 4-6 HOURS 08/03/22 01/05/24 History aerosol inhaler PRN Shortness Of Breath Or Wheezing aspirin 81 mg capsule 81 mg PO QAM 08/03/22 01/05/24 History atorvastatin 20 mg tablet (Lipitor) 20 mg PO HS 08/03/22 01/05/24 History calcium 600 mg (as 1 tab PO QDD 08/03/22 01/05/24 History carbonate)-vitamin D3 10 mcg (400 unit) tablet (Calcium 600 + D(3)) cyclosporine 0.05 % eye drops in a 1 drp ophthalmic (eye) Q12H Dry 08/03/22 01/05/24 History dropperette (Restasis) Eye(S) diltiazem HCl 180 mg 180 mg PO QAM 08/03/22 01/05/24 History capsule,extended release 24 hr guaifenesin 600 mg tablet, 600 mg PO BID PRN cough or 08/03/22 01/05/24 History extended release 12 hr (Mucinex) congestion levothyroxine 75 mcg tablet 75 mcg PO QAM 08/03/22 01/05/24 History olanzapine 5 mg tablet (Zyprexa) 5 mg PO HS 08/03/22 01/05/24 History tamsulosin 0.4 mg capsule 0.4 mg PO QAM 08/03/22 01/05/24 History magnesium oxide 400 mg PO HS 01/03/23 01/05/24 History acetaminophen 325 mg tablet 650 mg PO Q4 PRN Fever Or Pain 01/05/24 01/05/24 History albuterol sulfate 2.5 mg/3 mL 2.5 mg continuous nebulization Q4 01/05/24 01/05/24 History (0.083 %) solution for nebulization PRN Shortness Of Breath Or Wheezing apixaban 2.5 mg tablet (Eliquis) 2.5 mg PO AMHS 01/05/24 01/05/24 History cefadroxil 500 mg capsule 500 mg PO Q12 01/05/24 01/05/24 History escitalopram oxalate 20 mg tablet 20 mg PO QAM 01/05/24 01/05/24 History fluticasone 250 mcg-salmeterol 50 1 ea inhalation BID 01/05/24 01/05/24 History mcg/dose blistr powdr for inhalation [id number] C-Mn 500 1 cap PO QDD 01/05/24 01/05/24 History mg-400 mg capsule leuprolide (3 month) 22.5 mg (3 22.5 mg subcut .EVERY 3 MONTHS 01/05/24 01/05/24 History month) subcutaneous syringe lutein 20 mg tablet 20 mg PO QDD 01/05/24 01/05/24 History melatonin 5 mg tablet 5 mg PO HS 01/05/24 01/05/24 History metoprolol succinate 50 mg 50 mg PO AMHS 01/05/24 01/05/24 History tablet,extended release 24 hr mirtazapine 30 mg tablet 30 mg PO HS 01/05/24 01/05/24 History multivitamin with iron 1 tab PO QDD 01/05/24 01/05/24 History spironolactone 25 mg tablet 12.5 mg PO Q OTHER DAY 01/05/24 01/05/24 History torsemide 20 mg tablet 60 mg PO QAM 01/05/24 01/05/24 History Patient History Medical History Encounter for pre-operative examination Prostate cancer Around 2013- s/p brachytherapy - Lupron q 3 months Pulmonary disease restrictive lung disease, hypoxic respiratory failure, hypercapnic respiratory failure , bronchiectasis, 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, 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 per records Aortic stenosis Mild per 2021 ECHO Diastolic heart failure Compensated per cardio records Hx of pyoderma gangrenosum BLE On anticoagulant therapy eliquis A-fib follows w/ [facility] cardio, [place] on Eliquis Pacemaker medtronic, last checked 05/13/22, remotely Asthmatic bronchitis Breathing stable - chronic (hx of smoker) Surgical History History of surgery Rectal fissure repair S/P placement of cardiac pacemaker Hx of colonoscopy Hx of tonsillectomy Hx of total hip arthroplasty RIGHT Family History Other No family history of adverse response to anesthesia Social History Smoking Status: Former smoker Tobacco Type: Cigarettes Second Hand Exposure: No; Do You Dip or Chew Tobacco: No; Tobacco Cessation Education Requested by Patient: No Hx Alcohol Use: No Hx Substance Use: No Preferred Language: Macedonian Communication Ability: Effective Communication Ability Comment: Patient intubated and sedated Caddymaster Required: No Beliefs That Will Affect Care: None Current Living Situation: Spouse Feels Safe at Home: Yes Safety Concerns: Feels Safe At This Time Assistive Devices: Cane, Oxygen - Continuous and Walker Review of Systems Review of Systems: Please refer to admission H&P. No additions or deletions Physical Exam Constitutional: + obese; no acute distress, not ill appe aring and not in distress Elderly male sedated and on the ventilator Neck: trachea midline, no thyromegaly Respiratory: no respiratory distress, no labored breathing and not tachypneic Auscultation: + rhonchi Cardiovascular: Rate/Rhythm: + irregularly irregular Heart Sounds: normal S1, normal S2 and + murmur Extremities: no edema Gastrointestinal (Abdomen): normal bowel sounds, soft, nontender, no hepatosplenomegaly Musculoskeletal: Extremities: extremities normal to inspection Skin: no rashes, warm and dry Neurologic: Nonfocal Lymphatic: no cervical lymphadenopathy Results & Data Results & Data Vital Signs (Past 12 Hours) Vital Signs Temp Pulse Pulse Resp BP Pulse Ox O2 Del Method 01/06/24 07:37 74 01/06/24 07:30 36.7 C 80 14 125/80 98 BiPAP 01/06/24 07:30 80 18 98 BiPAP 01/06/24 07:25 80 18 98 01/06/24 03:43 68 18 98 01/06/24 02:46 36.5 C 72 20 104/64 96 BiPAP 01/06/24 01:34 61 19 96 01/06/24 00:00 85 22 98 FiO2 01/06/24 07:37 01/06/24 07:30 01/06/24 07:30 30 01/06/24 07:25 30 01/06/24 03:43 30 01/06/24 02:46 01/06/24 01:34 30 01/06/24 00:00 30 Critical Care Results & Data Vital Signs (Past 12 Hours) Vital Signs Temp Pulse Pulse Resp BP Pulse Ox O2 Del Method 01/06/24 07:37 74 01/06/24 07:30 36.7 C 80 14 125/80 98 BiPAP 01/06/24 07:30 80 18 98 BiPAP 01/06/24 07:25 80 18 98 01/06/24 03:43 68 18 98 01/06/24 02:46 36.5 C 72 20 104/64 96 BiPAP 01/06/24 01:34 61 19 96 01/06/24 00:00 85 22 98 FiO2 01/06/24 07:37 01/06/24 07:30 01/06/24 07:30 30 01/06/24 07:25 30 01/06/24 03:43 30 01/06/24 02:46 01/06/24 01:34 30 01/06/24 00:00 30 Lab & Micro Results (Past 24 Hours) RBC 3.79 M/uL (4.70-6.10) L 01/06/24 WBC 8.24 K/ul (4.8-10.8) 01/06/24 Hgb 11.5 g/dl (14.0-18.0) L 01/06/24 Hct 34.5 % (42.0-52.0) L 01/06/24 MCV 91.0 fL (80.0-100.0) 01/06/24 MCH 30.3 pg (25.0-34.0) 01/06/24 MCHC 33.3 g/dL (32.0-36.0) 01/06/24 RDW Standard Deviation 49.1 fL (36.4-46.3) H 01/06/24 RDW Coefficient of Variation 14.6 % (11.5-14.5) H 01/06/24 Plt Count 137 K/uL (130-400) 01/06/24 MPV 10.6 fL (9.4-12.4) 01/06/24 Neutrophils (%) (Auto) 80.4 % 01/05/24 Lymphocytes (%) (Auto) 13.6 % 01/05/24 Monocytes # (Auto) 0.54 K/uL (0.11-0.59) 01/05/24 Eosinophils # (Auto) 0.03 K/uL (0.00-0.50) 01/05/24 Immature Granulocyte % (Auto) 0.4 % 01/05/24 Neutrophils # (Auto) 8.60 K/uL (1.40-6.50) H 01/05/24 Lymphocytes # (Auto) 1.45 K/uL (1.20-3.40) 01/05/24 Monocytes # (Auto) 0.54 K/uL (0.11-0.59) 01/05/24 Eosinophils # (Auto) 0.03 K/uL (0.00-0.50) 01/05/24 Basophils # (Auto) 0.02 K/uL (0.00-0.20) 01/05/24 Immature Granulocyte # (Auto) 0.04 K/uL (0.01-0.20) 4 Na 139 mmol/L (136-145) 01/06/24 K 4.1 mmol/L (3.5-5.1) 01/06/24 Cl 97 mmol/L (98-107) L 01/06/24 CO2 36 mmol/L (21-32) H 01/06/24 Anion Gap 6 (3-11) 01/06/24 BUN 26 mg/dl (6-23) H 01/06/24 Creatinine 1.15 mg/dl (0.6-1.4) 01/06/24 BUN/Creatinine Ratio 22.6 (10-20) H 01/06/24 Glu 156 mg/dl (70-99(Fasting)) H 01/06/24 Ca 8.7 mg/dl (8.6-10.3) 01/06/24 Phosphorus Level 3.4 mg/dl (2.5-4.9) 01/06/24 Total Bilirubin 0.9 mg/dl (0.2-1.0) 01/05/24 AST 29 U/L (13-39) 01/05/24 ALT 20 U/L (7-52) 01/05/24 Alkaline Phosphatase 64 U/L (34-104) 01/05/24 TP 7.4 gm/dl (6.0-8.3) 01/05/24 Albumin 4.0 gm/dl (3.4-5.0) 01/05/24 Globulin 3.4 gm/dl (2.5-4.0) 01/05/24 Albumin/Globulin Ratio 1.2 (0.9-2) 01/05/24 Mg 2.5 mg/dl (1.7-2.4) H 01/06/24 06:29 Calcium Level 8.7 mg/dl (8.6-10.3) 01/06/24 06:29 Prothromb Time International Ratio 1.1 (0.9-1.1) 01/05/24 15:4 0 Venous Blood pH 7.37 (7.36-7.41) 01/06/24 06:31 Venous Blood Partial Pressure CO2 65 mmHg (38-50) H 01/06/24 06 :31 Venous Blood Partial Pressure O2 39 mmHg 01/06/24 06:31 Venous Blood HCO3 38 mmol/L 01/06/24 06:31 Venous Blood Base Excess 9.7 mEq/L 01/06/24 06:31 Venous Blood Oxygen Saturation 63.0 % 01/06/24 06:31 Diagnostic Findings (Past 24 Hours) Chest X-Ray 01/05/24 15:29 EXAM: Radiograph of the Chest 1 View INDICATION: Weakness and shortness of breath. TECHNIQUE: Frontal view of the chest. Image obtained at 4:09 PM. COMPARISON: 6:48 AM the same day FINDINGS: Lungs and pleural spaces: Shallow inspiration with stable basilar atelectasis and vascular congestion. Trace pleural effusions unchanged. No pneumothorax. Heart: Stable cardiomegaly. Right ventricular pacing device intact and unchanged. Mediastinum: Normal contour. Bones/joints: No fracture, erosion or dislocation. Soft tissues: No abnormality noted. No radiopaque foreign body noted. Tubes, lines and devices: Lines and tubes removed. Upper abdomen: No abnormality noted. IMPRESSION: Shallow inspiration with stable basilar atelectasis and vascular congestion. ACT 112: Negative or not required by law. Electronically signed by Arianna Farr 01-05-2024 4:[address] 01/05/24 18:20 Exam(s): CT CHEST Without Contrast EXAM: CT Chest Without Intravenous Contrast CLINICAL HISTORY: Concern for pneumonia. TECHNIQUE: Axial computed tomography images of the chest without intravenous contrast. CTDI is 28.14 mGy and DLP is 899.64 mGy-cm. Automated exposure control was utilized for the study. A dose lowering technique was utilized adhering to the principles of ALARA. COMPARISON: CT chest 01/03/2023 FINDINGS: Lungs: Bibasilar airspace opacities, left greater than right, favors the appearance of atypical infection and/or aspiration. Pleural space: Unremarkable. No pneumothorax. No significant effusion. Heart: Coronary artery calcifications are present. No cardiomegaly. No significant pericardial effusion. Bones/joints: There are degenerative changes of the spine. No acute fracture. No dislocation. Soft tissues: Unremarkable. Vasculature: Moderate atherosclerosis. Lymph nodes: Unremarkable. No enlarged lymph nodes. Tubes, lines and devices: There is a right cardiac pacer. IMPRESSION: Bibasilar airspace opacities, left greater than right, favors the appearance of atypical infection and/or aspiration. Electronically signed by: Antonella Hidalgo MD 01/05/24 21:[address] 01/05/24 23:17 CR Exam(s): CT HEAD Without Contrast EXAM: CT Head Without Intravenous Contrast CLINICAL HISTORY: Altered mental status. TECHNIQUE: Axial computed tomography images of the head/brain without intravenous contrast. CTDI is 46.85 mGy and DLP is 1404.25 mGy-cm. Automated exposure control was utilized for the study. A dose lowering technique was utilized adhering to the principles of ALARA. COMPARISON: CT head 01/03/2023 FINDINGS: Brain: No intracranial hemorrhage, mass-effect or midline shift. No abnormal extra axial fluid. No evidence of acute infarct. Mild periventricular white matter hypodensities are most consistent with chronic microangiopathy. Ventricles: Unremarkable. No ventriculomegaly. Bones/joints: Unremarkable. No acute fracture. Soft tissues: Unremarkable. Sinuses: There is a fluid level of the right maxillary sinus and right sphenoid sinus concerning for acute sinusitis. Mild mucosal thickening of the ethmoid sinus is also noted. Mastoid air cells: Unremarkable as visualized. No mastoid effusion. IMPRESSION: 1. No acute intracranial finding. 2. There is a fluid level of the right maxillary sinus and right sphenoid sinus concerning for acute sinusitis. Communications: Call Doctor Stroke Electronically signed by: Antonella Hidalgo MD 01/06/24 00:00 AM Head CTA 01/05/24 23:17 CR Exam(s): CTA HEAD With Contrast IV Amt: 118ml EXAM: CT Angiography Head With Intravenous Contrast CLINICAL HISTORY: Altered mental status. TECHNIQUE: Axial computed tomographic angiography images of the head with intravenous contrast. 3D and MIPS images were created and reviewed. CTDI is 46.85 mGy and DLP is 1404.25 mGy-cm. Automated exposure control was utilized for the study. A dose lowering technique was utilized adhering to the principles of ALARA. MIP reconstructed images were created and reviewed. CONTRAST: Patient received 118ml of IV contrast COMPARISON: No relevant prior studies available. FINDINGS: Right internal carotid artery: Mild atherosclerosis of the intracranial portions of the right internal carotid artery without significant stenosis. No aneurysm. Right anterior cerebral artery: Unremarkable. No occlusion or significant stenosis. No aneurysm. Right middle cerebral artery: Unremarkable. No occlusion or significant stenosis. No aneurysm. Right posterior cerebral artery: There is origin of the right [employer], normal variant. No occlusion or significant stenosis. No aneurysm. Right vertebral artery: Unremarkable as visualized. Left internal carotid artery: Mild atherosclerosis of the intracranial portion of the left internal carotid artery without significant stenosis. No aneurysm. Left anterior cerebral artery: Unremarkable. No occlusion or significant stenosis. No aneurysm. Left middle cerebral artery: Unremarkable. No occlusion or significant stenosis. No aneurysm. Left posterior cerebral artery: Unremarkable. No occlusion or significant stenosis. No aneurysm. Left vertebral artery: Unremarkable as visualized. Basilar artery: Unremarkable. No occlusion or significant stenosis. No aneurysm. IMPRESSION: No acute findings in the arteries of the head/brain. Communications: Call Doctor Stroke Electronically signed by: Antonella Hidalgo MD 01/05/24 23:59 PM Neck CTA 01/05/24 23:17 CR Exam(s): CTA NECK With Contrast IV Amt: 118ml EXAM: CT Angiography Neck With Intravenous Contrast CLINICAL HISTORY: Altered mental status. TECHNIQUE: Routine carotid CT angiography protocol was performed with intravenous contrast. NASCET criteria using the distal ICAs for comparison were used for evaluation of stenoses. MIPS images were created and reviewed. CTDI is 46.85 mGy and DLP is 1404.25 mGy-cm. Automated exposure control was utilized for the study. A dose lowering technique was utilized adhering to the principles of ALARA. MIP reconstructed images were created and reviewed. CONTRAST: Patient received 118ml of IV contrast COMPARISON: None. FINDINGS: VASCULATURE: Right common carotid artery: Unremarkable. No occlusion or significant stenosis. No dissection. Right internal carotid artery: There is atherosclerosis of the right carotid bulb without significant stenosis. Mild atherosclerosis of the proximal right ICA without significant stenosis by NASCET criteria. No dissection. Right external carotid artery: Unremarkable. No occlusion. Right vertebral artery: Unremarkable. No occlusion or significant stenosis. No dissection. Left common carotid artery: Unremarkable. No occlusion or significant stenosis. No dissection. Left internal carotid artery: There is atherosclerosis of the left carotid bulb without significant stenosis. Mild atherosclerosis of the proximal left ICA without significant stenosis by NASCET criteria. No dissection. Left external carotid artery: Unremarkable. No occlusion. Left vertebral artery: Unremarkable. No occlusion or significant stenosis. No dissection. NECK: Bones/joints: There are degenerative changes of the spine. No acute fracture. Soft tissues: Unremarkable. Lung apices: Clear. CAROTID STENOSIS REFERENCE USING NASCET CRITERIA: % ICA stenosis = (1 - narrowest ICA diameter/diameter of distal cervical ICA) x 100. Mild - <50% stenosis. Moderate - 50-69% stenosis. Severe - 70-94% stenosis. Near occlusion - 95-99% stenosis. Occluded - 100% stenosis. IMPRESSION: No acute findings of the arteries of the neck. Communications: Call Doctor Stroke Electronically signed by: Antonella Hidalgo MD 01/06/24 00:01 AM I & O Totals 24 Hours 01/05/24 01/06/24 01/07/24 06:59 06:59 06:59 Intake Total 754.583 / 754.583 0 / 0 Output Total 500 / 500 Balance 254.583 / 254.583 0 / 0 Cumulative 01/05/24 15:17 thru 01/06/24 07:58 Intake Total 754.583 Output Total 500 Balance 254.583 RT Ventilator Mngmt (Last Documented) Ventilator Ordered Settings Respiratory Rate 14 01/06/24 07:30 Fraction of Inspired Oxygen 30 01/06/24 07:30 Ventilator - PT Measurements Respiratory Rate 14 PG Care Time/CCT Total # of Minutes Spent Total Time Spent with Patient: Total time spent is greater than 50% in coordination of care (as documented) at patient's floor/unit and/or counseling patient: Coding Level of Care Code 94533 INT INP/OBS CARE 375MIN Diagnoses Acute sinusitis J01.90 COPD exacerbation J44.1 COVID-19 U07.1
[2024-01-06] MEDS: ASPIRIN 81 MG ECTAB PO SCH (09:43)
[2024-01-06] MEDS: ESCITALOPRAM OXALATE 20 MG TAB PO SCH (09:43)
[2024-01-06] MEDS: TAMSULOSIN HCL 0.4 MG CAP PO SCH (09:46)
[2024-01-06] MEDS: dilTIAZem HCL 180 MG CAPCR PO SCH (09:46)
--- OUTSIDE RECORDS SUMMARY | 2024-01-06 09:55 | External Medical Summary | Summary of Care ---
Author Name Unknown Organization [facility] Address [address] [place] [address] Phone [phone] Care Team Providers Care Visual Manager Name Role Phone Anna King MD Primary Care Provide r Encounter Details Date Type Department Care Team (Late st Contact Info) Description 12/30/2023 Orders Only Family Medicine [address] [phone] Anna King MD [address] [place] [address] [place], [place] [id number] Allergies Active Allergy Reactions Criticality Noted Date Comments Niacin 09/20/2002 niaspan-flushing Oxycodone-Acetaminophen 08/18/2014 Propoxyphene Napsylate 03/08/2003 rash documented as of this encounter (statuses as of 12/30/2023) Medications ASPIRIN 81 MG PO CHEW Take 1 Tablet by mouth in the morning. 100 5 8 Active MULTIVITAMIN/IRON PO TABS Take 1 Tablet by mouth daily with dinner. 0 9 Active GLUCOSAMINE 1500 COMPLEX PO CAPS Take 1 Capsule by mouth daily with dinner. 0 9 Active CALCIUM 600+D 600-400 MG-UNIT PO TABS Take 1 Tablet by mouth daily. Active guaiFENesin ER 600 MG Oral Tablet Extended Release 12 Hour Take 1 Tablet by mouth 2 times a day as needed for Cough or Congestion. Active Lutein 20 MG Oral Capsule Take 1 Capsule by mouth every evening. Active oxygen IN GAS 2 LPM via nasal cannula to maintain sats 90-94% and 3 LPM through CPAP during hours of sleep 1 Each 2 Active Magnesium 400 MG Oral Capsule Take 1 Capsule by mouth at bedtime. 31 Capsule 5 2 Active Escitalopram Oxalate 20 MG Oral Tablet (Lexapro) Take 1 Tablet by mouth in the morning. 31 Tablet 5 2 Active OLANZapine 5 MG Oral Tablet (zyPREXA) Take 1 Tablet by mouth at bedtime. 30 Tablet 2 Active Mirtazapine 30 MG Oral Tablet Take 1 Tablet by mouth at bedtime. 30 Tablet 3 Active Leuprolide Acetate (3 Month) 22.5 MG Intramuscular Kit (Lupron) Inject 22.5 mg into a large muscle. Every 3 months, given by Urology, depending on his PSA. Active Acetaminophen 325 MG Oral Tablet (Tylenol) Take 2 Tablets by mouth every 4 hours as needed for Pain, Mild, Pain, Moderate or Fever >38C(100.5F). 30 Tablet 3 Active dilTIAZem HCl ER 180 MG Oral Capsule Extended Release 24 HourIndications:Lo ngstanding persistent atrial fibrillation (HCC) TAKE 1 CAPSULE BY MOUTH EVERY DAY IN THE MORNING 90 Capsule 3 4 Active ProAir HFA 108 (90 Base) MCG/ACT Inhalation Aerosol SolutionIndication s:Restrictive lung disease,Bronchiect asis without complication (HCC),Interstitial pulmonary disease (HCC) 2 doses inhaled every 4-6 hours as needed for shortness of breath, cough or wheeze 18 g 5 4 Active Atorvastatin Calcium 20 MG Oral Tablet (Lipitor)Indicatio ns:Dyslipidemia, goal LDL below 100 Take 1 Tablet by mouth at bedtime. 90 Tablet 3 4 Active Melatonin 5 MG Oral Capsule Take 1 Capsule by mouth at bedtime. Active Fluticasone-Salmet donald 250-50 MCG/ACT Inhalation Aerosol Powder Breath Activated (Wixela Inhub)Indications: Mild persistent asthma without complication INHALE 1 PUFF BY MOUTH TWICE A DAY 180 Each 1 4 Active Spironolactone 25 MG Oral Tablet (Aldactone)Indicat ions:Renal dysfunction,HTN, goal below 140/90 Take 0.5 Tablets by mouth every other day. 4 Active Tamsulosin HCl 0.4 MG Oral Capsule (Flomax) TAKE 1 CAPSULE BY MOUTH EVERY DAY IN THE MORNING 90 Capsule 3 4 Active cycloSPORINE 0.05 % Ophthalmic Emulsion (Restasis) Instill 1 Drop into both eyes at bedtime. Active Apixaban 2.5 MG Oral Tablet (Eliquis) Take 1 Tablet by mouth in the morning and 1 Tablet before bedtime. 180 Tablet 3 4 Active Sodium Chloride 3 % Inhalation Nebulization Solution Inhale 3 mL via nebulizer in the morning and 3 mL before bedtime. 180 mL 4 Active Metoprolol Succinate ER 50 MG Oral Tablet Extended Release 24 Hour (toPROL XL) Take 1 Tablet by mouth in the morning and 1 Tablet before bedtime. 180 Tablet 3 4 Active Levothyroxine Sodium 75 MCG Oral Tablet (Levoxyl)Indicatio ns:Acquired hypothyroidism TAKE 1 TABLET BY MOUTH EVERY DAY (AT LEAST 30 MINUTES PRIOR TO BREAKFAST OR OTHER MEDICATIONS) 90 Tablet 2 4 Active Torsemide 20 MG Oral Tablet (Demadex)Indicatio ns:Heart failure, diastolic, due to HTN (HCC) Take 3 Tablets by mouth in the morning. 270 Tablet 3 4 Active Albuterol Sulfate (2.5 MG/3ML) 0.083% Inhalation Nebulization Solution (Proventil) Inhale 1 Vial via nebulizer every 4 hours as needed for Wheezing or Shortness of Breath. 360 mL 11 4 Active documented as of this encounter (statuses as of 12/30/2023) Active Problems Problem Noted Date Diagnosed Date Malignant neoplasm of prostate 03/01/2023 History of fusion of lumbar spine 03/01/2023 (HFpEF) heart failure with preserved ejection fr action 01/04/2023 Achalasia 01/04/2023 Permanent atrial fibrillation 01/04/2023 Interstitial pulmonary disease 10/20/2022 Elevated prostate specific antigen (PSA) 023 Chronic hypoxic respiratory failure 02/13/2022 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 Chronic diastolic congestive heart failure 02/13 Chronic bilateral low back pain with left-sided sciatica 02/13/2022 Hypertensive heart and kidne y disease with chronic diastolic congestive heart failure and stage 3b chronic kidney disease 06/26/2021 Other schizophrenia 05/16/2021 Post-traumatic stress disorder, chronic 02/26/19 21 Atherosclerotic heart diseas e of [place] coronary artery without angina pectoris 02/27/2020 Pancreas cyst 03/30/2019 Asthma, mild persistent 03/30/2019 Undescended left testicle 09/23/2018 TIBURCIO (generalized anxiety disorder) 06/13/2018 History of colon polyps 05/10/2018 RUDY treated with BiPAP 04/21/2018 Chronic frontal sinusitis 04/02/2018 Bronchiectasis without complication 08/18/2017 Severe episode of recurrent major depressive disorder, with psychotic features 08/18/2017 Presence of cardiac pacemaker 08/17/2017 Tachy-noni syndrome 08/10/2017 Longstanding persistent atrial fibrillation 05/09 Restrictive lung disease 01/09/2016 Overview (02/07/2016): moderate Acquired hypothyroidism 10/31/2014 Hx of actinic keratosis 07/24/2013 Dyslipidemia, goal LDL below 100 02/28/2010 Gout 11/06/2009 HTN, goal below 140/90 12/14/2008 Overview (12/14/2008): Modified per HTN Taxonomy. BPH without obstruction/lower urinary tract symp toms 03/08/2003 ARTHROPATHY NOS-PELVIS 02/14/2003 Hip joint replacement status 01/02/2003 documented as of this encounter (statuses as of 12/30/2023) Resolved Problems Problem Noted Date Diagnosed Date Resolved Date Major depressive disorder, recurrent, mild 03/01/2023 03/01/2023 Other persistent atrial fibrillation 03/01/2023 05/03/2023 Hx of schizophrenia 01/13/2023 03/01/19 24 Aspiration pneumonia of both lungs due to regurgitated food 01/07/2023 01/15/2023 Acute respiratory failure with hypoxia 01/04/2023 01/15/2023 On mechanically assisted ventilation 01/04/2023 01/15/2023 Aspiration into airway 01/04/202301/15 Hypertensive heart and kidne y disease with chronic diastolic congestive heart failure and stage 3a chronic kidney disease 02/13/202202/08 Benign hypertension with sta ge 3b chronic kidney disease 03/24/2021 12/31/2021 Overview: Per CKD protocol Chronic kidney disease, stage 3b 03/24/2021 05/03/2023 Overview: Per CKD protocol Heart failure, diastolic, due to HTN 02/10/2021 12/31/2021 Chronic kidney disease, stage 3a 07/23/2020 03/26/2021 Overview: Per CKD protocol Benign hypertension with sta ge 3a chronic kidney disease 06/18/2020 03/26/2021 Overview: Per CKD protocol Gastro-esophageal reflux dis ease without esophagitis 02/27/2020 02/27/2020 Unspecified psychosis not du e to a substance or known physiological condition 10/26/2019 021 History of prostate cancer 05/10/2018 0 2023 Hypertensive heart disease w ith chronic right-sided [...] IIA(T1c, N0, M0, PSA: Less than 10, [place] 7) - Signed by Jace Means MD on 05/17/2017 Asthma, mild persistent 02/28/201011/09 Asthma with severity to be determined 08/01/2009 02/28/2010 Overview (05/20/2015): Per Asthma Taxonomy ICD-10 update of inactive term Polymyalgia rheumatica 06/14/200910/25 Dyslipidemia, goal to be determined 01/15/2009 02/28/2010 Overview (01/15/2009): Per Lipid Taxonomy. Dyslipidemia, goal LDL below 160 12/14/2008 01/15/2009 Overview (01/15/2009): Per Lipid Taxonomy. ADVANCE DIRECTIVE INFORMATION 09/22/2004 12/13/2023 Overview (09/22/2004): Yes, Patient instructed to provide copy of advance directive for provider to review and to be scanned into Electronic Medical Record EXTRINSIC ASTHMA, UNSPEC 11/21/2002 BENIGN NEOPLASM LG BOWEL 10/17/200103/2018 Overview (10/23/2002): hx of multiple hyperplastic polyps [4] removed 04-08 BENIGN HYPERTENSION 06/09/2000 12/15/19 09 Overview (12/14/2008): Modified per HTN Taxonomy. Mixed dyslipidemia 06/09/2000 9 Major depression, single episode 06/09/2000 11/30/2017 Benign prostatic hyperplasia 02/27/2010 Overview (11/09/2016): ICD-10 update of inactive term ICD-10 update of inactive term documented as of this encounter (statuses as of 12/30/2023) Immunizations Name Administration Dates Next Due COVID-19 mRNA, LNP-s, No Pre serve, 2-Dose Series (Moderna) 12/01/2020,04/17/2020,03/20/2020 COVID-19, MRNA-LNP, PF, 30 M CG/0.3 mL, 12 YRS AND ABOVE, IM (PFIZER-Comirnaty) 03/01/2023 COVID-19, mRNA, LNP-s, PF, B ooster, 100mcg/0.5mg (Moderna) 12/10/2020 Covid-19, Mrna, Lnp-s, Pf, B ivalent, 50 Mcg, IM, 12 yrs and above (Moderna) 12/19/2021 Hepatitis B, 20+ yrs 11/11/2011,06/10/2011,05/12 Pneumococcal Conjugate Vacc, 13 Valent (Prevnar) 04/17/2014 Pneumococcal Polysaccharide PPV23 (Pneumovax) 06/13/2008 RSV Vac., Recomb, Adjuvant, PF,0.5 Ml (Arexvy) 11/22/2023 Season Influenza, Quad, PF, Adjuvanted, 65+ Yrs, IM (FLUAD) 10/26/2019 Seasonal Influenza Vac., MDV , IM, 0.5 mL (Fluzone) 10/25/2014,10/17/2013,11/08/2012,11/11,11/25/2010,01/21/2010,03/22/2009 (Deferred: Patient Refused) Seasonal Influenza, High Dos e, Trivalent, PF, IM (Fluzone HD) 2023 Seasonal Influenza, PF, 6 M & above, IM , (FluLaval or Fluzone) 11/05/2018,11/30/2017,11/30/2016 Seasonal Influenza, Quadriva lent Hd (Fluzone Hd) 10/20/2022,10/20/2021,10/24/2020 Seasonal Influenza, Quadriva lent, No Preserve, IM 11/07/2015 TD, Preservative Free 12/14/2007 TDAP (age 10 and older)(Boostrix) 06/01/2017 Varicella Zoster Vaccine (Adult) 05/05/2010 Zoster Vaccine Recombinant (Shingrix) 05/03/2020 ,12/13/2019,10/26/2019 documented as of this encounter Social History Tobacco Use Types Packs/Day Years Used Date Smoking Tobacco: Former Cigarettes 1.5 24 0 02/08/1954 - 02/08/1978 Smokeless Tobacco: Former Snuff, Chew Quit: 1970 Alcohol Use Standard Drinks/Week Comments Not Currently 0 (1 standard drink = 0.6 oz pur e alcohol) PHQ-2 Answer Date Recorded PHQ Adult Total Score 2 12/09/2023 Hunger Vital Sign Answer Date Recorded Within the past 12 months, y ou worried that your food would run out before you got the money to buy more. Never true 12/09/19 24 Within the past 12 months, t he food you bought just didn't last and you didn't have money to get more. Never true 12/09/2023 Childcare Answer Date Recorded Do you feel overwhelmed with taking care of a child, family member or friend? No 12/09/2023 Does your family need help f inding childcare? (Household - for ages 0-17 years) Not on file 12/09/2023 Clothing Answer Date Recorded Have you been unable to get clothing when it was really needed? No 12/09/2023 Is your family able to get c lothes or diapers when needed? (Household - for ages 0-17 years) Not on file 12/09/2023 Personal Safety Answer Date Recorded Do you feel unsafe or have concerns for your saf ety? No 12/09/2023 Do you have concerns for you r family's safety? (Household - for ages 0-17 years) Not on file 12/09/2023 Utilities Answer Date Recorded Do you have trouble paying y our heating, water, or electric bill? No 12/09/2023 Is your family able to pay t he heat, water, or electric bill? (Household - for ages 0-17 years) Not on file 12/09/2023 Does your family have access to good internet? (Household - for ages 0-17 years) Not on file 12/09/2023 Employment Status Answer Date Recorded Are you unemployed or without regular income? No 12/09/2023 Does the household have a [facility] source of income? (Household - for ages 0-17 years) Not on file 12/09/2023 Social Connections Answer Date Recorded How often do you feel lonely or isolated from th ose around you? Rarely 12/09/2023 Financial Resource Strain Answer Date R ecorded Do you have any trouble payi ng for your medications, or do you think you might in the future? No 12/09/2023 Does your family have troubl e paying for medicine? (Household - for ages 0-17 years) Not on file 12/09/2023 Transportation Needs Answer Date Record ed READ ONLY Do you have troubl e getting a ride to medical visits or work? Never True 12/09/2023 Does your family have a hard time getting a ride to doctors visits? (Household - for ages 0-17 years) Not on file 12/09/2023 Has lack of transportation k ept you from medical appointments, meetings, work, or from getting things needed for daily living? Check all that apply. No 12/09/2023 Do you (or your family) have trouble finding or paying for a ride (transportation)? (Household - for ages 0-17 years) Not on file 12/09/2023 Housing Stability Answer Date Recorded Do you currently live in a s helter or have no steady place to sleep at night? No 12/09/2023 READ ONLY Do you think you a re at risk of becoming homeless? No 12/09/2023 Does your family worry about paying for your home or becoming homeless? (Household - for ages 0-17 years) Not on file 1 Are you homeless or worried that you might be in the future? No 12/09/2023 Are you (or your family) alexa eless or worried that you might be in the future? (Household - for ages 0-17 years) Not on file Food Insecurity Answer Date Recorded Do you need food for this week? No 12/09/2023 Are you able to get enough f ood for your family? (Household - for ages 0-17 years) Not on file 12/09/2023 Does your family need food t his week? (Household - for ages 0-17 years) Not on file 12/09/2023 Do you always have enough fo od for your family? 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 Not on file Not on file Not on file documented as of this encounter Plan of Treatment Upcoming Encounters Date Type Department Care Team (Late st Contact Info) Description 01/18/2024 8:40 AM EST Office Visit Pulmonary Medicine, [facility] [address] [facility] [place] [address] Dusty Youssef MD [address] [facility] [place] [id number] 01/25/2024 1:40 PM EST Office Visit Family [address] [phone] Anna King MD [address] [place] [address] [place] [id number] 03/30/2024 2:00 PM EST Office Visit Cardiology [address] [place] [phone] Wellington Parrish PA-C [address] [place] [id number] 04/04/2024 10:00 AM EST Office Visit Nephrology, [facility] [address] [place] [address] Darwin Barker MD [address] [place] [id number] 04/11/2024 2:00 PM EST Office Visit [facility] [place] [phone] Magalys Dexter CRNP [address] [place] [phone] 05/01/2024 10:40 AM EDT Office Visit Family [address] [place] [phone] Manisha Villa CRNP [address] [place] [address] [place] [id number] 05/24/2024 10:45 AM EDT Office Visit Urology, [facility] [address] [place] [address] Torrey Abdi MD [address] [place] [phone] 07/20/2024 1:00 PM EDT Nurse Only Ancillary [address] [place] [id number] Candice, Nurse Annual Wellness [address] [place] [address] [place] [id number] 07/24/2024 2:20 PM EDT Office Visit Dermatology [address] [place] [address] Bertha Kapoor, CONNOR [address] [place] [address] [place] [id number] 11/27/2024 2:00 PM EDT Office Visit Family Medicine [address] [place] [phone] Anna King MD [address] [place] [address] [place] [id number] Scheduled Procedures Name Priority Associated Diagnoses Date/Ti me COLONOSCOPY FLEXIBLE PROXIMAL DIAGNOSTIC Recall History of colon polyps Health Maintenance Due Date Last Done Comments Colonoscopy 12/17/2020 12/17/2017, 10/2017, 11/09/2014, Additional history exists COVID-19 Vaccine ( season) 2023 03/01/2023, 12/19/2021, 12/10/2020, Additional history exists CKD PHOS USE SMARTSET 28477 01/13/202406/2022, 01/11/2023, 01/10/2023, Additional history exists Albumin/Creatinine Ratio 03/01/2024 024, 02/13/2022, 10/25/2014 GFR 06/05/2024 12/29/2023, 11/09, 11/15/2023, Additional history exists Adult Wellness Visit 07/18/2024 07/19/2023, 01/12/2022, 12/10/2020 CKD HGB USE SMARTSET [id number] 11/14/202412/28, 11/15/2023, 11/15/2023, Additional history exists TSH 11/14/2024 11/15/2023, 04/0 03/2023, 01/10/2023, Additional history exists Depression Monitoring 12/08/2024 12/09/2023, 024 DTap/Tdap Vaccines (2 - Td or Tdap) 06/02/2027 06/01/2017, 06/01/2017, 12/14/2007 Hepatitis B Vaccine Completed 11/11/2011, 06/10/2011, 05/13/2011 Pneumococcal Vaccine: 65+ Years Completed 04/17/2014, 06/13/2008 Zoster Vaccines Completed 05/03/2020, 04/09, 12/13/2019, Additional history exists Influenza Vaccine (FLU shot) Completed , 10/20/2022, 10/20/2021, Additional history exists HPV (Gardasil) Vaccine Aged Out No lo nger eligible based on patient's age to complete this topic MENINGOCOCCAL (MENACTRA/MENVEO) Aged Out No longer eligible based on patient's age to complete this topic documented as of this encounter Medical Devices Not on filedocumented as of this encounter Procedures Procedure Name Priority Date/Time Associated Diagnosis Comments CHEMISTRY-OUTSIDE Routine 12/29/2023 documented in this encounter Results * (ABNORMAL) CHEMISTRY-OUTSIDE (12/29/2023) Not all results display below - see scan for full detail OUTSIDE LAB (SEE SCANNED REPORT) Comment:SCAN INCLUDES - CBC, SED RATE, BMP, CRP CREATININE 1.44(A) 0.70 - 1.30 MG/DL OUTSIDE LAB (SEE SCANNED REPORT) EGFR 48(L) >=60 ML/MIN/1.7 3M2 OUTSIDE LAB (SEE SCANNED REPORT) POTASSIUM 4.3 3.5 - 5.1 MMOL/L OUTSIDE LAB (SEE SCANNED REPORT) GLUCOSE 101 70 - 110 MG/DL OUTSIDE LAB (SEE SCANNED REPORT) HOURS FASTING OUTSID E LAB (SEE SCANNED REPORT) TRIGLYCERIDES-OUT SIDE LAB OUTSIDE LAB (SEE SCANNED REPORT) CHOLESTEROL-OUTSI DE LAB OUTSIDE LAB (SEE SCANNED REPORT) HDL-OUTSIDE LAB OUTS CHE LAB (SEE SCANNED REPORT) CHOL/HDL RATIO-OUTSIDE LAB OUTSIDE LA B (SEE SCANNED REPORT) LDL (CALCULATED)-OUTS CHE LAB OUTSIDE LAB (SEE SCANNED REPORT) LDL (DIRECT MEASURE)-OUTSIDE LAB OUTSIDE LAB (SEE SCANNED REPORT) HEMOGLOBIN, U5I-SERBVAI LAB OUTSIDE LAB (SEE SCANNED REPORT) PHOSPHORUS-OUTSID E LAB OUTSIDE LAB (SEE SCANNED REPORT) PTH-OUTSIDE LAB OUTS CHE LAB (SEE SCANNED REPORT) MICROALBUMIN RATIO-OUTSIDE LAB OUTSIDE LA B (SEE SCANNED REPORT) PROTEIN, UA-OUTSIDE LAB OUTSIDE LAB (SEE SCANNED REPORT) HGB 12.4(A) 13.5 - 18.O0 GM/DL OUTSIDE LAB (SEE SCANNED REPORT) 12/29/2023 us [facility] Final Resul t OUTSIDE LAB (SEE SCANNED REPORT) documented in this encounter Advance Directives * Full Code (Latest Code Status on File) Date Activated Date Inactivated Comments 01/04/2023 6:10 PM 01/15/2023 4:20 PM This order reflects the patients wishes and were consensually agreed upon. Question Answer Comments Discussion of Advance Direct marianna occurred with: Not Discussed due to patient's condition Care Teams Visual Manager Relationship Specialty Start Date End Date Anna King MD [address] [place] [address] [place] [id number] PCP - General Family Medicine 07/24/13 documented as of this encounter
--- OUTSIDE RECORDS SUMMARY | 2024-01-06 09:55 | External Medical Summary | Summary of Care ---
Author Name Unknown Organization [facility] Address [address] [place] [address] Phone [phone] Care Team Providers Care Ethnology Teacher Name Role Phone Anna King MD Primary Care Provide r Reason for Visit * Reason Onset Date Comments Home Health 12/27/2023 Encounter Details Date Type Department Care Team (Late st Contact Info) Description 12/27/2023 Telephone Family Medicine [address] [phone] Anna King MD [address] [place] [address] [place] [id number] Home Health Allergies Active Allergy Reactions Criticality Noted Date Comments Niacin 09/20/2002 niaspan-flushing Oxycodone-Acetaminophen 08/18/2014 Propoxyphene Napsylate 03/08/2003 rash documented as of this encounter (statuses as of 12/28/2023) Medications ASPIRIN 81 MG PO CHEW Take [...] as of this encounter (statuses as of 12/28/2023) Active Problems Problem Noted Date Diagnosed Date [...] 02/26/19 21 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 Mixed dyslipidemia 06/09/2000 9 Major depression, single episode 06/09/2000 11/30/2017 Benign prostatic hyperplasia 02/27/2010 Overview (11/09/2016): ICD-10 update of inactive term ICD-10 update of inactive term documented as of this encounter (statuses as of 12/28/2023) Immunizations Name Administration Dates Next Due COVID-19 [...] No 12/09/2023 Does the household have a re gular source of income? (Household - for ages [...] encounter Miscellaneous Notes * Telephone Encounter - Cristina Patten CMA - 12/28/2023 1:31 PM EST Sent copy of tele encounter as orders * Telephone Encounter - Janelle Monk LPN - 12/27/2023 3:31 PM EST Elizabeth calling to check on previous message. Informed message. She needs order faxed to [facility]. * Telephone Encounter - Michelle Lovell OSA - 12/27/2023 3:27 PM EST Reason for patient's call: Elizabeth mathews [facility] is calling back Caller was transferred to Janelle at the nurse line. * Telephone Encounter - Anna King MD - 12/27/2023 10:49 AM EST Either of those is fine * Telephone Encounter - Marlen Sim LPN - 12/27/2023 9:30 AM EST Concerns ElizabethONEL, Calling from: [facility] Report/Concerns of: Fall Symptoms: 7 x 6 skin tear right forearm. Vitals: T 98.5 P 94 RR 20 BP 118/68 SP O2 96 percent at 2 lpm oxygen Lung sounds clear Weight 216 Blood sugar n/a Narrative: [facility] Patient was wearing socks without tread on wooden floors. Floor was slick, feet went out, right arm hit his stand. Did not hit his head. Right forearm skintear, 7 x 6 cleaned, wound gel, gauze, 4x4's. Has clotted blood around it. Elizabeth cleaned it with sterile water. Asking if the doctor would want xeroform applied or vaseline guaze with DSD? She would like a call back . She is changing his wound vac and will be there awhile. Call back Elizabeth with any advice or orders at [phone] Please fax new orders to [facility] documented in this encounter Plan of Treatment Upcoming Encounters Date Type Department Care Team (Late st Contact Info) Description 01/18/2024 8:40 AM EST Office Visit Pulmonary Medicine, [facility] [address] [place] [address] Dusty Youssef MD [address] [place] [address] 01/25/2024 1:40 PM EST Office Visit Family [address] [place] [phone] Anna King MD [address] [place] [address] [place] [id number] 03/30/2024 2:00 PM EST Office Visit Cardiology [address] [place] [address] Wellington Parrish PAWaylonC [address] [place] [address] 04/04/2024 10:00 AM EST Office Visit Nephrology, [facility] [address] [place] [address] Darwin Barker MD [address] [place] [address] 04/11/2024 2:00 PM EST Office Visit Sleep Disorders Ctr [facility] [address] [place] [phone] Magalys Dexter CRNP [address] [place] [address] 05/01/2024 10:40 AM EDT Office Visit Family [address] [place] [phone] Manisha Villa CRNP [address] [place] [address] [place] [id number] 05/24/2024 10:45 AM EDT Office Visit Urology, [facility] 132 [facility] [place] [phone] Torrey Abdi MD [address] [place] [address] 07/20/2024 1:00 PM EDT Nurse Only Ancillary [address] [place] [address] [place], Nurse Annual Wellness [address] [place] [address] [place] [address] 07/24/2024 2:20 PM EDT Office Visit Dermatology [address] [place] [address] Bertha Kapoor PA-C [address] [place] [address] [place] [id number] 11/27/2024 2:00 PM EDT Office Visit Family Medicine [address] [place] [phone] Anna King MD [address] [place] [address] [place] [id number] Scheduled Procedures Name Priority Associated Diagnoses Date/Ti me COLONOSCOPY FLEXIBLE PROXIMAL DIAGNOSTIC Recall History of colon polyps Health Maintenance Due Date Last Done Comments Colonoscopy 12/17/2020 12/17/2017, 10/2017, 11/09/2014, Additional history exists COVID-19 Vaccine ( season) 2023 03/01/2023, 12/19/2021, 12/10/2020, Additional history exists CKD PHOS USE SMARTSET 74593 01/13/20242023, 01/11/2023, 01/10/2023, Additional history exists Albumin/Creatinine Ratio 03/01/2024 024, 02/13/2022, 10/25/2014 GFR 06/05/2024 12/06/2023, 08/2023, 10/31/2023, Additional history exists Adult Wellness Visit 07/18/2024 07/19/2023, 01/12/2022, 12/10/2020 CKD HGB USE SMARTSET 58079 11/14/202411/14, 11/15/2023, 10/31/2023, Additional history exists TSH 11/14/2024 11/15/2023, 03/2023, 01/10/2023, Additional history exists Depression Monitoring [...] Not on filedocumented as of this encounter Advance Directives * Full Code (Latest Code Status on File) Date Activated Date Inactivated Comments 01/04/2023 6:10 PM 01/15/2023 4:20 PM This order reflects the patients wishes and were consensually agreed upon. Question Answer Comments Discussion of Advance Direct marianna occurred with: Not Discussed due to patient's condition Care Teams Ethnology Teacher Relationship Specialty Start Date End Date Anna King MD [address] [place] [address] [place] [id number] PCP - General Family Medicine 07/24/13 documented as of this encounter
--- OUTSIDE RECORDS SUMMARY | 2024-01-06 09:55 | External Medical Summary | Summary of Care ---
Author Name Unknown Organization [facility] Address [address] [place] [address] Phone [phone] Care Team Providers Care Inserter Operator Name Role Phone Anna King MD Primary Care Provide r Reason for Visit * Reason Onset Date Comments Order Request 12/16/2023 Encounter Details Date Type Department Care Team (Late st Contact Info) Description 12/16/2023 Telephone Family Medicine [address] [phone] Anna King MD [address] [place] [address] [place] [id number] Order Request Allergies Active Allergy Reactions Criticality Noted Date Comments Niacin 09/20/2002 niaspan-flushing Oxycodone-Acetaminophen 08/18/2014 Propoxyphene Napsylate 03/08/2003 rash documented as of this encounter (statuses as of 12/17/2023) Medications ASPIRIN 81 MG PO CHEW Take [...] as of this encounter (statuses as of 12/17/2023) Active Problems Problem Noted Date Diagnosed Date [...] 02/26/19 21 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 * Telephone Encounter - Anna King MD - 12/16/2023 11:23 AM EST Signed * Telephone Encounter - Marlen Sim LPN - 12/16/2023 10:19 AM EST Shruti, is calling. Patient has an achilles tendon exposed. Can't walk on his left leg. He has bronchiectasis. He gets sob easily. Asking if he can have an order for a wheelchair? Asking if it can be sent to [facility] in [place]? documented in this encounter Plan of Treatment Upcoming Encounters Date Type Department Care Team (Late st Contact Info) Description 01/18/2024 8:40 AM EST Office Visit Pulmonary Medicine, [facility] [address] [place] [phone] Dusty Youssef MD [address] [address] 01/25/2024 1:40 PM EST Office Visit Family Medicine [address] [place] [phone] Anna King MD [address] [place] [address] [place] [id number] 03/30/2024 2:00 PM EST Office Visit Cardiology [address] [place] [address] Wellington Parrish PA-C [address] [place] [address] 04/04/2024 10:00 AM EST Office Visit Nephrology, [facility] [place] [address] Darwin Barker MD [address] [place] [address] 04/11/2024 2:00 PM EST Office Visit Sleep Disorders Ctr [facility] 132 [facility] [place] [phone] Magalys Dexter CRNP 132 [facility] [place] [address] 05/01/2024 10:40 AM EDT Office Visit [address] [place] [phone] Manisha Villa CRNP [address] [place] [address] [place] [id number] 05/24/2024 10:45 AM EDT Office Visit Urology, [facility] 132 [facility] [place] [address] Torrey Abdi MD [address] [place] [address] 07/20/2024 1:00 PM EDT Nurse Only Ancillary [address] [place] [address] [place], Nurse [address] [place] [address] 07/24/2024 2:20 PM EDT Office Visit Dermatology [address] [place] [address] Bertha Kapoor PA-C [address] [place] [address] [place] [address] 11/27/2024 2:00 PM EDT Office Visit Family Medicine [address] [place] [phone] Anna King MD [address] [place] [address] [place] [id number] Scheduled Procedures Name Priority Associated Diagnoses Date/Ti me COLONOSCOPY FLEXIBLE PROXIMAL DIAGNOSTIC Recall History of colon polyps Health Maintenance Due Date Last Done Comments Colonoscopy 12/17/2020 12/17/2017, 10/2017, 11/09/2014, Additional history exists COVID-19 Vaccine ( season) 2023 03/01/2023, 12/19/2021, 12/10/2020, Additional history exists CKD PHOS USE SMARTSET 11204 01/13/202406/2022, 01/11/2023, 01/10/2023, Additional history exists Albumin/Creatinine Ratio 03/01/2024 024, 02/13/2022, 10/25/2014 GFR 06/05/2024 12/06/2023, 08/2023, 10/31/2023, Additional history exists Adult Wellness Visit 07/18/2024 07/19/2023, 01/12/2022, 12/10/2020 CKD HGB USE SMARTSET 98957 11/14/202411/14, 11/15/2023, 10/31/2023, Additional history exists TSH [...] as of this encounter Visit Diagnoses Diagnosis Bronchiectasis without complication (HCC)- Primary Bronchiectasis without acute exacerbation Chronic heart failure with preserved ejection fraction (HCC) Chronic hypoxic respiratory failure (HCC) Impaired ambulation documented in this encounter Advance Directives * Full Code (Latest Code Status on File) Date Activated Date Inactivated Comments 01/04/2023 6:10 PM 01/15/2023 4:20 PM This order reflects the patients wishes and were consensually agreed upon. Question Answer Comments Discussion of Advance Direct marianna occurred with: Not Discussed due to patient's condition Care Teams Inserter Operator Relationship Specialty Start Date End Date Anna King MD [address] [place] [address] [place] [id number] PCP - General Family Medicine 07/24/13 documented as of this encounter
--- OUTSIDE RECORDS SUMMARY | 2024-01-06 09:55 | External Medical Summary | Summary of Care ---
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 Name Role Phone Anna King MD Primary Care Provide r Reason for Visit * Reason Onset Date Comments Re-Check Medication Administration 2023 Flu an d/or Pneumo Inj Encounter Details Date Type Department Care Team (Late st Contact Info) Description 2023 10:00 AM EDT Office Visit Family Medicine [address] [id number] Anna King MD [address] [place] [address] [place] [id number] Hypertensive heart and kidney disease with chronic diastolic congestive heart failure and stage 3b chronic kidney disease (HCC)*; Need for prophylactic vaccination and inoculation against influenza; Chronic diastolic congestive heart failure (HCC); Severe episode of recurrent major depressive disorder, with psychotic features (HCC); Tachy-noni syndrome (HCC); Longstanding persistent atrial fibrillation (HCC); Bronchiectasis without complication (HCC); Malignant neoplasm of prostate (HCC); Restrictive lung disease; Acquired hypothyroidism; Dyslipidemia, goal LDL below 100; Presence of cardiac pacemaker Allergies Active Allergy Reactions Criticality Noted Date Comments Niacin 09/20/2002 niaspan-flushing Oxycodone-Acetaminophen 08/18/2014 Propoxyphene Napsylate 03/08/2003 rash documented as of this encounter (statuses as of 12/31/2023) Medications ASPIRIN 81 MG PO CHEW Take 1 Tablet by mouth in the morning. 100 5 02/21/19 08 Active MULTIVITAMIN/IRON PO TABS Take 1 Tablet by mouth daily with dinner. 0 07/27/19 09 Active GLUCOSAMINE 1500 COMPLEX PO CAPS Take 1 Capsule by mouth daily with dinner. 0 07/27/19 09 Active CALCIUM 600+D 600-400 MG-UNIT PO TABS [...] CPAP during hours of sleep 1 Each 02/11/19 Active Magnesium 400 MG Oral Capsule Take 1 Capsule by mouth at bedtime. 31 Capsule 5 04/03/19 22 Active Escitalopram Oxalate 20 MG Oral Tablet (Lexapro) Take 1 Tablet by mouth in the morning. 31 Tablet 5 04/03/19 22 Active OLANZapine 5 MG Oral Tablet (zyPREXA) Take 1 Tablet by mouth at bedtime. 30 Tablet 04/07/19 22 Active Mirtazapine 30 MG Oral Tablet Take 1 Tablet by mouth at bedtime. 30 Tablet 02/19/19 23 Active Leuprolide Acetate (3 Month) 22.5 MG Intramuscular Kit (Lupron) Inject 22.5 mg into a large muscle. Every 3 months, given by Urology, depending on his PSA. Active Acetaminophen 325 MG Oral Tablet (Tylenol) Take 2 Tablets by mouth every 4 hours as needed for Pain, Mild, Pain, Moderate or Fever >38C(100.5F) . 30 Tablet 01/16/20 23 Active dilTIAZem HCl ER 180 MG Oral Capsule Extended Release 24 HourIndications:L ongstanding persistent atrial fibrillation (HCC) TAKE 1 CAPSULE BY MOUTH EVERY DAY IN THE MORNING 90 Capsule 3 03/01/19 24 Active ProAir HFA 108 (90 Base) MCG/ACT Inhalation Aerosol SolutionIndicatio ns:Restrictive lung disease,Bronchiec tasis without complication (HCC),Interstitia l pulmonary disease (HCC) 2 doses inhaled every 4-6 hours as needed for shortness of breath, cough or wheeze 18 g 5 03/17/19 24 Active Atorvastatin Calcium 20 MG Oral Tablet (Lipitor)Indicati ons:Dyslipidemia, goal LDL below 100 Take 1 Tablet by mouth at bedtime. 90 Tablet 3 03/25/19 24 Active Melatonin 5 MG Oral Capsule Take 1 Capsule by mouth at bedtime. Active Fluticasone-Salme terol 250-50 MCG/ACT Inhalation Aerosol Powder Breath Activated (Wixela Inhub)Indications :Mild persistent asthma without complication INHALE 1 PUFF BY MOUTH TWICE A DAY 180 Each 1 05/12/19 24 Active Spironolactone 25 MG Oral Tablet (Aldactone)Indica tions:Renal dysfunction,HTN, goal below 140/90 Take 0.5 Tablets by mouth every other day. 05/21/19 24 Active Tamsulosin HCl 0.4 MG Oral Capsule (Flomax) TAKE 1 CAPSULE BY MOUTH EVERY DAY IN THE MORNING 90 Capsule 3 05/26/19 24 Active cycloSPORINE 0.05 % Ophthalmic Emulsion (Restasis) Instill 1 Drop into both eyes at bedtime. Active Apixaban 2.5 MG Oral Tablet (Eliquis) Take 1 Tablet by mouth in the morning and 1 Tablet before bedtime. 180 Tablet 3 08/13/19 24 Active Sodium Chloride 3 % Inhalation Nebulization Solution Inhale 3 mL via nebulizer in the morning and 3 mL before bedtime. 180 mL 08/24/19 24 Active Metoprolol Succinate ER 50 MG Oral Tablet Extended Release 24 Hour (toPROL XL) Take 1 Tablet by mouth in the morning and 1 Tablet before bedtime. 180 Tablet 3 10/27/19 24 Active Levothyroxine Sodium 75 MCG Oral Tablet (Levoxyl)Indicati ons:Acquired hypothyroidism TAKE 1 TABLET BY MOUTH EVERY DAY (AT LEAST 30 MINUTES PRIOR TO BREAKFAST OR OTHER MEDICATIONS) 90 Tablet 2 09/26/19 23 2023 Discontinued Albuterol Sulfate (2.5 MG/3ML) 0.083% Inhalation Nebulization Solution (Proventil) Inhale 1 Vial via nebulizer every 4 hours as needed for Wheezing or Shortness of Breath. 360 mL 11 01/16/20 23 2023 Discontinued(R efill) Torsemide 20 MG Oral Tablet (Demadex)Indicati ons:Heart failure, diastolic, due to HTN (HCC) Take 2 Tablets by mouth in the morning. 180 Tablet 1 05/27/19 24 2023 Discontinued(R efill) documented as of this encounter (statuses as of 12/31/2023) Active Problems Problem Noted Date Diagnosed Date [...] schizophrenia 05/16/2021 Post-traumatic stress disorder, chronic 02/26/19 Atherosclerotic heart diseas e of [place] coronary artery without angina pectoris 02/27/2020 Pancreas [...] as of this encounter (statuses as of 12/31/2023) Resolved Problems Problem Noted Date Diagnosed Date Resolved Date Major depressive disorder, recurrent, mild 03/01/2023 03/01/2023 Other persistent atrial fibrillation 03/01/2023 05/03/2023 Hx of schizophrenia 01/13/2023 03/01/19 Aspiration pneumonia of both lungs due to [...] removed 3- BENIGN HYPERTENSION 06/09/2000 12/15/19 09 Overview (12/14/2008): Modified per HTN Taxonomy. Mixed dyslipidemia 06/09/2000 9 Major depression, single episode 06/09/2000 11/30/2017 Benign prostatic hyperplasia 02/27/2010 Overview (11/09/2016): ICD-10 update of inactive term ICD-10 update of inactive term documented as of this encounter (statuses as of 12/31/2023) Immunizations Name Administration Dates Next Due COVID-19 mRNA, LNP-s, No Pre serve, 2-Dose Series (Moderna) 12/01/2020,04/17/2020,03/20/2020 COVID-19, MRNA-LNP, PF, 30 M CG/0.3 mL, 12 YRS AND ABOVE, IM [facility] 03/01/2023 COVID-19, mRNA, LNP-s, PF, B ooster, [...] do you feel lonely or isolated from ose around you? Rarely 12/09/2023 Financial Resource [...] Sign Reading Time Taken Comments Blood Pressure 110/66 2023 9:57 AM EDT Pulse - - Temperature 36.1 C (97 F) 2023 9:57 AM EDT Respiratory Rate - - Oxygen Saturation - - Inhaled Oxygen Concentration - - Weight 99.8 kg (220 lb) 2023 9:57 AM EDT Height - - Body Mass Index 29.84 07/19/2023 1:22 PM EDT documented in this encounter Progress Notes * Anna King MD - 2023 10:06 AM EDT Subjective: Cristhian May is a 82 year old male. Chief Complaint Patient presents with Re-Check Medication Administration Flu and/or Pneumo Inj HPI: Brief Clinical History Mr. May is a 82 year old male last seen in Family Medicine [facility] on 08/04/2023 by Enma Sanchez He has a h/o the following chronic conditions indicated on the problem list: Chronic Conditions (HFpEF) heart failure with preserved ejection fraction (HCC) Chronic diastolic congestive heart failure (HCC) Hypertensive heart and kidney disease with chronic diastolic congestive heart failure and stage 3b chronic kidney disease (HCC) Severe episode of recurrent major depressive disorder, with psychotic features (HCC) Tachy-noni syndrome (HCC) Was called by clinical case manager this week and he reported increased leg swelling. Cardiology discontinued the short acting diltiazem and increased metoprolol as well as increase torsemide for 3 days. Feels the swelling is a bit better now. Just took the first dose of the extra torsemide yesterday and did not take it yet today but will take it when he goes home. His weight had been trending up over thepast couple weeks. He will take an extra dose tomorrow as well. Has not noticed a change in his breathing yet. He has been weighing himself daily on the [employer] scales and weight was up 5 pounds between 10/23/23 and yesterday. Again, just took the first dose of extra torsemide yesterday and has not taken it yet today. Following with Dr. Abdi for prostate cancer. Is getting his Lupron injections based on his PSA. Next appointment with Dr. Abdi is 11/15/23. Is on chronic oxygen. Has chronic bronchitis, CHF, and restrictive lung disease. Breathing has beenfairly stable despite the weight gain as above. Following with psychiatry for schizophrenia and depression. His Requip was not helping and was discontinued. Was referred to nephrology in the spring by cardiology due to rising creatinine. Saw Dr. Rankin yesterday for follow-up. Had a blister of his left lower leg lanced and drained earlier this week. Is being wrapped. Goes back 11/02/[address] Rankin for a recheck. Was told it was not infected. Was stinging last night. The leg is wrapped today. Results for orders placed or performed in visit on 09/06/23 PSA Result Value Ref Range PSA 0.86 <4.10 ng/mL *Note: Due to a large number of results and/or encounters for the requested time period, some results have not been displayed. A complete set of results can be found in Results Review. No results found for: "HEMOGLOBIN A1C" CBC Results: Results for orders placed or performed in visit on 03/01/23 CBC Result Value Ref Range WBC 12.70 (H) 4.00 - 10.80 K/uL RBC 4.44 4.50 - 5.25 M/uL HGB 12.5 (L) 14.0 - 16.8 g/dL HCT 42.1 40.0 - 48.4 % MCV 94.8 82.0 - 99.5 fL MCH 28.2 27.0 - 34.0 pg MCHC 29.7 32.0 - 36.0 g/dL RDW 18.5 11.5 - 15.5 % PLT 271 140 - 400 K/uL MPV 10.9 6.6 - 11.1 fL nRBCs 0 <=0 /100 WBCs Basic Panel Results: Results for orders placed or performed in visit on 07/30/23 BASIC METABOLIC PANEL Result Value Ref Range BUN 28 (H) 6 - 20 mg/dL CREATININE 1.6 (H) 0.6 - 1.2 mg/dL EGFR 42 (L) >=60 mL/min SODIUM 140 135 - 146 mmol/L POTASSIUM 4.7 3.5 - 5.1 mmol/L CHLORIDE 94 (L) 98 - 107 mmol/L CO2 33 (H) 22 - 32 mmol/L ANION GAP 13 7 - 15 mmol/L GLUCOSE 91 70 - 120 mg/dL CALCIUM 9.7 8.4 - 10.2 mg/dL PHM: Patient Active Problem List Diagnosis Hip joint replacement status ARTHROPATHY NOS-PELVIS BPH without obstruction/lower urinary tract symptoms ADVANCE DIRECTIVE INFORMATION HTN, goal below 140/90 Gout Dyslipidemia, goal LDL below 100 Hx of actinic keratosis Acquired hypothyroidism Restrictive lung disease Longstanding persistent atrial fibrillation (HCC) Tachy-noni syndrome (HCC) Presence of cardiac pacemaker Bronchiectasis without complication (HCC) Severe episode of recurrent major depressive disorder, with psychotic features (HCC) Chronic frontal sinusitis RUDY treated with BiPAP History of colon polyps History of prostate cancer TIBURCIO (generalized anxiety disorder) Undescended left testicle Pancreas cyst Asthma, mild persistent Post-traumatic stress disorder, chronic Atherosclerotic heart disease of [place] coronary artery without angina pectoris Other schizophrenia (HCC) Hypertensive heart and kidney disease with chronic diastolic congestive heart failure and stage 3b chronic kidney disease (HCC) Chronic hypoxic respiratory failure (HCC) Calcium pyrophosphate deposition disease (CPPD) Chronic diastolic congestive heart failure (HCC) 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 100 5 MULTIVITAMIN/IRON PO TABS Take 1 Tablet by mouth daily with dinner. 0 GLUCOSAMINE 1500 COMPLEX PO CAPS Take 1 Capsule by mouth daily with dinner. 0 CALCIUM 600+D 600-400 MG-UNIT PO TABS Take 1 Tablet by mouth daily. guaiFENesin ER 600 MG Oral Tablet Extended Release 12 Hour Take 1 Tablet by mouth 2 times a day as needed for Cough or Congestion. Lutein 20 MG Oral Capsule Take 1 Capsule by mouth every evening. oxygen IN GAS 2 LPM via nasal cannula to maintain sats 90-94% and 3 LPM through CPAP during hours of sleep 1 Each 0 Magnesium 400 MG Oral Capsule Take 1 Capsule by mouth at bedtime. 31 Capsule 5 Escitalopram Oxalate 20 MG Oral Tablet (Lexapro) Take 1 Tablet by mouth in the morning. 31 Tablet 5 OLANZapine 5 MG Oral Tablet (zyPREXA) Take 1 Tablet by mouth at bedtime. 30 Tablet 0 Mirtazapine 30 MG Oral Tablet Take 1 Tablet by mouth at bedtime. 30 Tablet 0 Leuprolide Acetate (3 Month) 22.5 MG Intramuscular Kit (Lupron) Inject 22.5 mg into a large muscle.Every 3 months, given by Urology, depending on his PSA. Levothyroxine Sodium 75 MCG Oral Tablet (Levoxyl) TAKE 1 TABLET BY MOUTH EVERY DAY (AT LEAST 30 MINUTES PRIOR TO BREAKFAST OR OTHER MEDICATIONS) 90 Tablet 2 Albuterol Sulfate (2.5 MG/3ML) 0.083% Inhalation Nebulization Solution (Proventil) Inhale 1 Vial via nebulizer every 4 hours as needed for Wheezing or Shortness of Breath. 360 mL 11 Acetaminophen 325 MG Oral Tablet (Tylenol) Take 2 Tablets by mouth every 4 hours as needed for Pain, Mild, Pain, Moderate or Fever >38C(100.5F). 30 Tablet 0 dilTIAZem HCl ER 180 MG Oral Capsule Extended Release 24 Hour TAKE 1 CAPSULE BY MOUTH EVERY DAY IN THE MORNING 90 Capsule 3 ProAir HFA 108 (90 Base) MCG/ACT Inhalation Aerosol Solution 2 doses inhaled every 4-6 hours as needed for shortness of breath, cough or wheeze 18 g 5 Atorvastatin Calcium 20 MG Oral Tablet (Lipitor) Take 1 Tablet by mouth at bedtime. 90 Tablet 3 Melatonin 5 MG Oral Capsule Take 1 Capsule by mouth at bedtime. Fluticasone-Salmeterol 250-50 MCG/ACT Inhalation Aerosol Powder Breath Activated (Wixela Inhub) INHALE 1 PUFF BY MOUTH TWICE A DAY 180 Each 1 Spironolactone 25 MG Oral Tablet (Aldactone) Take 0.5 Tablets by mouth every other day. Tamsulosin HCl 0.4 MG Oral Capsule (Flomax) TAKE 1 CAPSULE BY MOUTH EVERY DAY IN THE MORNING 90 Capsule 3 Torsemide 20 MG Oral Tablet (Demadex) Take 2 Tablets by mouth in the morning. 180 Tablet 1 cycloSPORINE 0.05 % Ophthalmic Emulsion (Restasis) Instill 1 Drop into both eyes at bedtime. Apixaban 2.5 MG Oral Tablet (Eliquis) Take 1 Tablet by mouth in the morning and 1 Tablet before bedtime. 180 Tablet 3 Sodium Chloride 3 % Inhalation Nebulization Solution Inhale 3 mL via nebulizer in the morning and 3mL before bedtime. 180 mL 0 Metoprolol Succinate ER 50 MG Oral Tablet Extended Release 24 Hour (toPROL XL) Take 1 Tablet by mouth in the morning and 1 Tablet before bedtime. 180 Tablet 3 No current facility-administered medications for this visit. Past Medical History: Diagnosis Date (HFpEF) heart failure with preserved ejection fraction (HCC) 01/04/2023 Achalasia 01/04/2023 Asthma, severity to be determined BENIGN NEOPLASM LG BOWEL 10/17/2001 hx of multiple hyperplastic polyps [4] removed 04-08 BPH without obstruction/lower urinary tract symptoms Bronchiectasis (HCC) Chronic kidney disease, stage 3b (HCC) 03/24/2021 Per CKD protocol Depressive disorder, not elsewhere classified Generalized osteoarthritis HTN, goal below 140/90 Mixed dyslipidemia RUDY treated with BiPAP 04/21/2018 Other schizophrenia (HCC) 05/16/2021 Persistent atrial fibrillation (HCC) 05/26/2016 Post-traumatic stress disorder, chronic 02/27/2020 Prostate cancer (HCC) Logan score 7 Restrictive lung disease 01/2016 moderate RHF (right heart failure) ([facility]) 06/12/2016 Severe episode of recurrent major depressive disorder, with psychotic features ([facility]) 08/18/2017 Sleep apnea, obstructive Tachy-noni syndrome ([facility]) 08/10/2017 Past Surgical History: Procedure Laterality Date COLONOSCOPY 2007 Dr. Machado--umremarkable COLONOSCOPY 2000 Jeannette--polyps COLONOSCOPY, DIAGNOSTIC (RECTUM) 11/09/2014 hyperplastic polyps, suboptimal prep, repeat 3 yrs/COLONOSCOPY FLEXIBLE PROXIMAL DIAGNOSTIC performed by Digna Ridley DO at ENDOSCOPY [facility] COLONOSCOPY, DIAGNOSTIC (RECTUM) 12/17/2017 hyperplastic polyp, repeat 3 yrs/COLONOSCOPY FLEXIBLE PROXIMAL DIAGNOSTIC performed by Digna Ridley DO at ENDOSCOPY [facility] CYSTOSCOPY 09/03/2014 EGD, FLEXIBLE, BALLOON DILATION >=30MM N/A 01/08/2023 ESOPHAGOGASTRODUODENOSCOPY (EGD), FLEXIBLE, TRANSORAL: BALLOON DILATION (30 MM OR MORE) performed [place] [facility], FLEXIBLE, DIAGNOSTIC N/A 01/07/2023 ESOPHAGOGASTRODUODENOSCOPY (EGD), FLEXIBLE, TRANSORAL, DIAGNOSTIC performed by Boston Bennett MD [place] [facility], FLEXIBLE, DIAGNOSTIC N/A 01/06/2023 ESOPHAGOGASTRODUODENOSCOPY (EGD), FLEXIBLE, TRANSORAL, DIAGNOSTIC performed by Boston Bennett MD [place] [facility], FLEXIBLE, DIAGNOSTIC N/A 12/15/2022 normal/EGD/[place] EGD, W/ENDOSCOPIC US 08/07/2019 pseudocysts, repeat 3 mo / ESOPHAGOGASTRODUODENOSCOPY (EGD), FLEXIBLE, TRANSORAL, ENDOSCOPIC ULTRASOUND performed by Kiran Lucia MD at [facility]COPY [facility] EGD, W/ENDOSCOPIC US 01/15/2020 pancreatic mucinous cyst / ESOPHAGOGASTRODUODENOSCOPY (EGD), FLEXIBLE, TRANSORAL, ENDOSCOPIC ULTRASOUND performed by Kiran Lucia MD at [facility]COPY [facility] INFORMATION 1971 vasectomy down in [facility] INTERSTITIAL RADIATION APPLICATION, COMPLEX 08/23/2013 INSTERSTITIAL RADIATION SOURCE APPLICATION COMPLEX performed by Chu Palomares MD at [facility] LUMBAR SPINE FUSION, POST INTERBODY N/A 12/03/2022 Dr. Esteves L2-L5 PROCTOSIGMOIDOSCOPY/REMOVE LESION benign REMOVAL OF ANORECTAL LESION REMOVAL OF TONSILS, AGE 12+ THORAX SPINE FUSION, POSTEROLATERAL 12/09/2022 Dr. 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 Witt TRANS PL OF NEED OR CATH IN [place] 08/23/2013 TRANSPERINEAL PLACEMENT NEEDLES INTO PROSTATE FOR INTERSTITIAL RADIOELEMENT W/O CYSTOSCOPY performed by Chu Palomares MD at [facility] ULTRASONIC GUIDE, INTERSTITIAL RADIOELEMENT 08/23/2013 ULTRASONIC GUIDED INTERSTITIAL RADIOELEMENT APPLICATION performed by Chu Palomares MD at 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 Tobacco Use Smoking status: Former Current packs/day: 0.00 Average packs/day: 1.5 packs/day for 24.0 years (36.0 ttl pk-yrs) Types: Cigarettes Start date: 02/08/1954 Quit date: 02/08/1978 Years since quittin.7 Smokeless tobacco: Former Types: Snuff, Chew Quit date: 1969 Vaping Use Vaping status: Never Used Substance and Sexual Activity Alcohol use: Not [...] Self-Exams Not Asked Social History Narrative for 62yrs as of 08/08/23 Social Determinants of Health Financial Resource Strain: Low Risk (07/19/2023) Financial Resource Strain Do you have any trouble paying for your medications, or do you think you might in the future? (Adult - for ages 18 years and over): No Does your family have trouble paying for medicine? (Household - for ages 0-17 years): Not on file Food Insecurity: No Food Insecurity (07/19/2023) Food Insecurity Do you need food for this week? (Adult - for ages 18 years and over): No Are you able to get enough food for your family? (Household - for ages 0-17 years): Not on file Does your family need food this week? (Household - for ages 0-17 years): Not on file Do you always have enough food for your family? (Household - for ages 0-17 years): Not on file Transportation Needs: No Transportation Needs (07/19/2023) Transportation Needs Do you have trouble getting a ride to medical visits or work? (Adult - for ages 18 years and over):Never True Does your family have a hard time getting a ride to doctors visits? (Household - for ages 0-17 years): Not on file Has lack of transportation kept you from medical appointments, meetings, work, or from getting things needed for daily living? Check all that apply. (Adult - for ages 18 years and over): Not on file Do you (or your family) have trouble finding or paying for a ride (transportation)? (Household - for ages 0-17 years): Not on file Social Connections: Socially Integrated (07/19/2023) Social Connections How often do you feel lonely or isolated from those around you? (Adult - for ages 18 years and over): Sometimes Housing Stability: Low Risk (07/19/2023) Housing Stability Do you currently live in a long term or have no steady place to sleep at night? (Adult - for ages 18 years and over): No Do you think you are at risk of becoming homeless? (Adult - for ages 18 years and over): No Does your family worry about paying for your home or becoming homeless? (Household - for ages 0-17 years): Not on file Are you homeless or worried that you might be in the future? (Adult - for ages 18 years and over): Not on file Are you (or your family) homeless or worried that you might be in the future? (Household - for ages0-17 years): Not on file Review of patient's allergies indicates: Allergen Reactions Niacin niaspan-flushing Oxycodone-Acetaminophen Propoxyphene Napsylate rash Objective: BP 110/66 | Temp 36.1 C (97 F) (Tympanic) | Wt 99.8 kg (220 lb) | BMI 29.84 kg/m | BSA 2.25 m Physical Exam: General: alert, no distress, well nourished, and well developed [...] chest deformities noted, no chest wall tenderness, decreased breath sounds, one faint expiratory wheeze on left Extremities: no edema, no clubbing, no cyanosis, left leg in tight coban wrap from foot to just below the knee Neuro Exam: alert & oriented x 3 with fluent speech, no focal motor/sensory deficits Extensive ROS Constitutional (f/c/wt/vision/hearing): see above hpi Resp (cough/sob/andrews): see above hpi CV (cp/palp/fluttering/diaphoresis/andrews/pnd):see above hpi GI (n/v/d/hrtburn): Negative Endo (hair/cold or heat intol/ 3 p's): Negative Neuro (shaking/weak/fatigu/parasthesi/): Negative Skin (rash/easy bruis/xerosis): Negative Psy (si/hi/halluc/): see above hpi (nocturia/hesit/drib/sexual review): see above hpi Lymph (swollen glands/b sx's/: Negative ASSESSMENT: Hypertensive heart and kidney disease 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 Had edema wit blister lanced by podiatry this week. On increased dose of torsemide x 3 days per cardiology and took the first dose of this yesterday and has not taken it yet today. No appreciable edema of legs today but weight remains up. - COMPREHENSIVE METABOLIC PANEL; Future; Expected date: 2023 - CBC WITH WBC DIFFERENTIAL AND ANEMIA REFLEX WORKUP; Future; Expected date: 2023 Need for prophylactic vaccination and inoculation against influenza - INFLUENZA VAC., TRIVALENT, HD, PF, 65 AND ABOVE, 0.5 ML IM (FLUZONE HD) Chronic diastolic congestive heart failure (HCC)--as above Severe episode of recurrent major depressive disorder, with psychotic features (HCC)--follows with psychiatry. Continue olanzapine 5 mg daily, Lexapro 20 mg daily, and mirtazapine 30 mg daily. Tachy-noni syndrome (HCC)--s/p pacemaker. Longstanding persistent atrial fibrillation (HCC)--continue Eliquis 5 mg twice daily. Rate controlled with diltiazem and metoprolol. Bronchiectasis without complication (HCC)--continue oxygen, Wixela, and albuterol. Malignant neoplasm of prostate (HCC)--following with Dr. Abdi for Lupron injections based on PSA level.s Restrictive lung disease--continue oxygen Acquired hypothyroidism--continue levothyroxine 75 mcg daily. - TSH WITH FREE T4 IF INDICATED; Future; Expected date: 2023 Dyslipidemia, goal LDL below 100--continue atorvastatin 20 mg daily. - COMPREHENSIVE METABOLIC PANEL; Future; Expected date: 2023 - LIPID PANEL WITH DIRECT LDL IF TG IS HIGH; Future; Expected date: 2023 Presence of cardiac pacemaker ADDENDUM: Patient in need for wheelchair for locomotion. He is having a hard time ambulating due tobronchiectasis with chronic respiratory failure and oxygen use. He also has wound of Achilles tendon and has difficulty bearing weight. Would benefit from a wheelchair for mobility. Follow Up: Return in about 6 months (around 04/27/2024) for Clinic Visit. | For: Clinic Visit PLAN: Continue present medication(s): Schedule labs: CBC w/diff, CMP, lipid panel, and TSH with next PSA draw prior to upcoming urology appointment. Patient education: discussed diuretic use and daily weights. Continue increase torsemide today and tomorrow and resume previous dosing per cardiology. His diltiazem and metoprolol were also adjusted this week by cardiology. Does not appear acutely short of breath today. Keep follow-up with podiatryas scheduled 11/02/23 for blister that was lanced. Leg currently wrapped in [place]. Follow up: in 6 month(s). Anna King MD' documented in this encounter Nursing Notes * Monisha Feliz LPN - 2023 9:57 AM EDT 6 month recheck Does he need to see Nephrology? Unsure why he was scheduled with them. documented in this encounter Plan of Treatment Upcoming Encounters Date Type Department Care Team (Late st Contact Info) Description 01/18/2024 8:40 AM EST Office Visit Pulmonary Medicine, [facility] 132 [facility] [place] [address] Dusty Youssef MD [address] [place] [phone] 01/25/2024 1:40 PM EST Office Visit Family Medicine [address] [phone] Anna King MD [address] [place] [address] [place] [phone] 03/30/2024 2:00 PM EST Office Visit Cardiology [address] [place] [address] Wellington Parrish PA-C [address] [place] [address] 04/04/2024 10:00 AM EST Office Visit Nephrology, [facility] [address] [place] [address] Darwin Barker MD [address] [place] [address] 04/11/2024 2:00 PM EST Office Visit [facility] [place] [phone] Magalys Dexter CRNP [address] [place] [address] 05/01/2024 10:40 AM EDT Office Visit [address] [phone] Manisha Villa CRNP [address] [place] [address] [place] [id number] 05/24/2024 10:45 AM EDT Office Visit Urology, [facility] [address] [place] [address] Torrey Abdi MD 27 [place] [address] 07/20/2024 1:00 PM EDT Nurse Only Ancillary [address] [place] [address] Candice, Nurse Annual Wellness [address] [place] [address] [place] [address] 07/24/2024 2:20 PM EDT Office Visit Dermatology [address] [place] [address] Bertha Kapoor, CONNOR [address] [place] [address] [place] [address] 11/27/2024 2:00 PM EDT Office Visit Family Medicine [address] [place] [phone] Anna King MD [address] [place] [address] [place] [id number] Scheduled Procedures Name Priority Associated Diagnoses Date/Ti me COLONOSCOPY FLEXIBLE PROXIMAL DIAGNOSTIC Recall History of colon polyps Health Maintenance Due Date Last Done Comments Colonoscopy 12/17/2020 12/17/2017, 10/2017, 11/09/2014, Additional history exists COVID-19 Vaccine ( season) 2023 03/01/2023, 12/19/2021, 12/10/2020, Additional history exists CKD PHOS USE SMARTSET 09044 01/13/202406/2022, 01/11/2023, 01/10/2023, Additional history exists Albumin/Creatinine Ratio 03/01/2024 024, 02/13/2022, 10/25/2014 GFR 06/27/2024 12/29/2023, 11/09, 11/15/2023, Additional history exists Adult Wellness Visit 07/18/2024 07/19/2023, 01/12/2022, 12/10/2020 TSH 11/14/2024 11/15/2023, 0403/2023, 01/10/2023, Additional history exists Depression Monitoring 12/08/2024 12/09/2023, 06/10/2 024 CKD HGB USE SMARTSET 44316 12/28/202412/28, 11/15/2023, 11/15/2023, Additional history exists DTap/Tdap Vaccines (2 - Td or Tdap) [...] Not on filedocumented as of this encounter Results * (ABNORMAL) TSH WITH FREE T4 IF INDICATED (11/15/2023 10:08 AM EDT) TSH 4.77(H) 0.27 - 4.20 uIU/mL 11/15/2023 8:20 PM EDT [facility] [place] Venous blood specimen / Unknown Venipuncture / Unknown 11/15/2023 10:08 AM EDT 11/15/2023 10:08 AM EDT Anna King MD LAB BLOOD ORDERABLES Final Result [facility] [address] [place] [address] * (ABNORMAL) LIPID PANEL WITH DIRECT LDL IF TG IS HIGH (11/15/2023 10:08 AM EDT) Triglycerides 148 <=174 mg/dL 11/15/2023 6:58 PM EDT LAB[facility]ATORY [facility] Comment: Triglyceride Reference Ranges (mg/dL): <150 Acceptable 150-174 Borderline high 175-499 High >=500 Very high Cholesterol 112 <200 mg/dL 11/15/2023 6:58 PM EDT [facility] Comment: Total Cholesterol Reference Ranges (mg/dL): <200 Desirable 200-239 Borderline high >=240 High HDL Cholesterol 33(L) >39 mg/dL 6:58 PM EDT [facility] Comment: HDL Cholesterol Reference Ranges (mg/dL): >=60 High (Desirable) <50 Low (Undesirable) For Females <40 Low (Undesirable) For Males Non-HDL Cholesterol 79 <=159 mg/dL 11/15/2023 6:58 PM EDT [facility] Comment: Non-HDL Cholesterol Reference Range (mg/dL): <100 Target level for high risk ASCVD patient <130 Optimal for general population 130-159 Near optimal for general population 160-189 Borderline High 190-219 High >=220 Very High LDL Cholesterol 49 <=129 mg/dL 11/15/2023 6:58 PM EDT [facility] Comment: LDL Cholesterol Reference Ranges (mg/dL): <70 Target level for high risk ASCVD patient <100 Optimal for general population 100-129 Near optimal for general population 130-159 Borderline high 160-189 High >=190 Very high Blood Venous blood specimen / Unknown Venipuncture / Unknown 11/15/2023 10:08 AM EDT 11/15/2023 10:08 AM EDT us Anna King MD LAB BLOOD ORDERABLES Final Result LABORATORY [address] [address] * (ABNORMAL) COMPREHENSIVE METABOLIC PANEL (11/15/2023 10:08 AM EDT) BUN 28(H) 6 - 20 mg/dL 11/15/2023 11:40 AM EDT [facility]ORY [place] [facility] CREATININE 1.6(H) 0.6 - 1.2 mg/dL 11/15/2023 11:40 AM EDT [facility] [place] [facility]10 EGFR 44(L) >=60 mL/min 11/15/2023 11:40 AM EDT [facility] [place] 57-10 Comment:eGFR is calculated b ased on the CKD-EPI 2020 equation. SODIUM 141 135 - 146 mmol/L 11/15/2023 11:40 AM EDT [facility] [place] [facility]10 POTASSIUM 4.9 3.5 - 5.1 mmol/L 11/15/2023 11:40 AM EDT [facility] [place] [facility]10 CHLORIDE 97(L) 98 - 107 mmol/L 11/15/2023 11:40 AM EDT [facility] [place] [facility]10 CO2 35(H) 22 - 32 mmol/L 11/15/2023 11:40 AM EDT [facility] [place] [facility]10 ANION GAP 9 7 - 15 mmol/L 11/15/2023 11:40 AM EDT [facility] [place] [facility]10 GLUCOSE 97 70 - 120 mg/dL 11/15/2023 11:40 AM EDT [facility] [place] [facility]10 Albumin 4.2 3.8 - 5.0 g/dL 11/15/2023 11:40 AM EDT [facility] [place] [facility]10 AST 30 10 - 50 U/L 11/15/2023 11:40 AM EDT [facility] [place] [facility]10 Alkaline Phosphatase 101 35 - 130 U/L 11/15/2023 11:40 AM EDT [facility] [place] [facility]10 Bilirubin, Total 0.5 <=1.2 mg/dL 11/15/2023 11:40 AM EDT [facility] [place] [facility]10 CALCIUM 9.8 8.4 - 10.2 mg/dL 11/15/2023 11:40 AM EDT [facility] [place] [facility]10 Protein 7.2 6.0 - 8.3 g/dL 11/15/2023 11:40 AM EDT [facility] [place] [facility]10 ALT 33 10 - 50 U/L 11/15/2023 11:40 AM EDT [facility]ORY [place] [facility]10 Blood Venous blood specimen / Unknown Venipuncture / Unknown 11/15/2023 10:08 AM EDT 11/15/2023 10:08 AM EDT Anna King MD LAB BLOOD ORDERABLES Final Result [facility]10 [address] [place] [id number] documented in this encounter Visit Diagnoses Diagnosis Hypertensive heart and kidney disease with chronic diastolic congestive heart failure and stage 3b chronic kidney disease (HCC)- Primary Need for prophylactic vaccination and inoculation against influenza Chronic diastolic congestive heart failure (HCC) Chronic diastolic heart failure Severe episode of recurrent major depressive disorder, 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 Longstanding persistent atrial fibrillation (HCC) Bronchiectasis without complication (HCC) Bronchiectasis without acute exacerbation Malignant neoplasm of prostate (HCC) Malignant neoplasm of prostate Restrictive lung disease Other diseases of lung, not elsewhere classified Acquired hypothyroidism Unspecified hypothyroidism Dyslipidemia, goal LDL below 100 Other and unspecified hyperlipidemia Presence of cardiac pacemaker Cardiac pacemaker in situ documented in this encounter Advance Directives * Full Code (Latest Code Status on File) Date Activated Date Inactivated Comments 01/04/2023 6:10 PM 01/15/2023 4:20 PM This order reflects the patients wishes and were consensually agreed upon. Question Answer Comments Discussion of Advance Direct marianna occurred with: Not Discussed due to patient's condition Care Teams Steel Sampler Relationship Specialty Start Date End Date Anna King MD [address] [place] [address] [place] [phone] PCP - General Family Medicine 07/24/13 documented as of this encounter
--- OUTSIDE RECORDS SUMMARY | 2024-01-06 09:55 | External Medical Summary | Summary of Care ---
Author Name Unknown Organization [facility] Address [address] [place] [address] Phone [phone] Care Team Providers Care Bonding Supervisor Name Role Phone Anna King MD Primary Care Provide r Encounter Details Date Type Department Care Team (Late st Contact Info) Description 12/16/2023 Population Health External Data Unspecified Department Allergies Active Allergy Reactions Criticality Noted Date Comments Niacin 09/20/2002 niaspan-flushing Oxycodone-Acetaminophen 08/18/2014 Propoxyphene Napsylate 03/08/2003 rash documented as of this encounter (statuses as of 12/23/2023) Medications ASPIRIN 81 MG PO CHEW Take [...] as of this encounter (statuses as of 12/23/2023) Active Problems Problem Noted Date Diagnosed Date [...] 02/26/19 21 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 (Household - for ages [...] 8:40 AM EST Office Visit Pulmonary Medicine, [facility] 132 [facility] [place] [address] Dusty Youssef MD [facility] [phone] 01/25/2024 1:40 PM EST [facility] [address] [place] [address] [place] [phone] Anna King MD [address] [place] [address] [place] [address] 03/30/2024 2:00 PM EST Office Visit Cardiology [address] [place] [address] Wellington Parrish PA-C [address] [place] [address] 04/04/2024 10:00 AM EST Office Visit Nephrology, [facility] [address] [place] [address] Darwin Barker MD [address] [place] [address] 04/11/2024 2:00 PM EST Office Visit Sleep Disorders Ctr [facility] 132 [facility] [place] [phone] Magalys Dexter CRNP [address] [place] [address] 05/01/2024 10:40 AM EDT Office Visit Family Medicine [address] [place] [phone] Manisha Villa CRNP [address] [place] [address] [place] [address] 05/24/2024 10:45 AM EDT Office Visit Urology, [facility] 132 [facility] [place] [address] Torrey bAdi MD 27 [place] [address] 07/20/2024 1:00 PM EDT Nurse Only Ancillary [address] [place] [address] Candice, Nurse [address] [place] [address] 07/24/2024 2:20 PM EDT Office Visit Dermatology [address] [place] [address] Bertha Kapoor PA-C [address] [place] [address] [place] [address] 11/27/2024 2:00 PM EDT Office Visit Family Medicine [address] [place] [phone] Anna King MD [address] [place] [address] [place] [phone] Scheduled Procedures Name Priority Associated Diagnoses Date/Ti me COLONOSCOPY FLEXIBLE PROXIMAL DIAGNOSTIC Recall History of colon polyps Health Maintenance Due Date Last Done Comments Colonoscopy 12/17/2020 12/17/2017, 10/2017, 11/09/2014, Additional history exists COVID-19 Vaccine ( season) 2023 03/01/2023, 12/19/2021, 12/10/2020, Additional history exists CKD PHOS USE SMARTSET 70314 01/13/202406/2022, 01/11/2023, 01/10/2023, Additional history exists Albumin/Creatinine Ratio 03/01/2024 024, 02/13/2022, 10/25/2014 GFR 06/05/2024 12/06/2023, 08/2023, 10/31/2023, Additional history exists Adult Wellness Visit 07/18/2024 07/19/2023, 01/12/2022, 12/10/2020 CKD HGB USE SMARTSET 10987 11/14/202411/14, 11/15/2023, 10/31/2023, Additional history exists TSH [...] Discussed due to patient's condition Care Teams Bonding Supervisor Relationship Specialty Start Date End Date Anna King MD [address] [place] [address] [place] [phone] PCP - General Family Medicine 07/24/13 documented as of this encounter
--- OUTSIDE RECORDS SUMMARY | 2024-01-06 09:55 | External Medical Summary | Summary of Care ---
Author Name Unknown Organization [facility] Address [address] [place] [address] Phone [phone] Care Team Providers Care Regional Commercial Sales Manager Name Role Phone Anna King MD Primary Care Provide r Reason for Visit * Reason Onset Date Comments Order Request 12/16/2023 Encounter Details Date Type Department Care Team (Late st Contact Info) Description 12/16/2023 Telephone Family Medicine [address] [phone] Anna King MD [address] [place] [address] [place] [id number] Order Request Allergies Active Allergy Reactions Criticality Noted Date Comments Niacin 09/20/2002 niaspan-flushing Oxycodone-Acetaminophen 08/18/2014 Propoxyphene Napsylate 03/08/2003 rash documented as of this encounter (statuses as of 12/29/2023) Medications ASPIRIN 81 MG PO CHEW Take [...] as of this encounter (statuses as of 12/29/2023) Active Problems Problem Noted Date Diagnosed Date [...] 02/26/19 21 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 Please advise. Thank you. * Telephone Encounter - Karli South RN - 12/17/2023 11:50 AM EST Order submitted through [employer] for wheelchair. * Telephone Encounter - Anna [...] Asking if it can be sent to [facility] in [place]? documented in this encounter Plan of Treatment Upcoming Encounters Date Type Department Care Team (Late st Contact Info) Description 01/18/2024 8:40 AM EST Office Visit Pulmonary Medicine, [facility] 132 [facility] [place] [address] Dusty Youssef MD [address] [place] [address] [place] [phone] 01/25/2024 1:40 PM EST Office Visit Family Medicine [address] [place] [phone] Anna King MD [address] [place] [address] [place] [id number] 03/30/2024 2:00 PM EST Office Visit Cardiology [address] [place] [address] Wellington Parrish PA-C [address] [place] [address] 04/04/2024 10:00 AM EST Office Visit Nephrology, [facility] [address] [place] [address] Darwin Barker MD [address] [place] [address] 04/11/2024 2:00 PM EST Office Visit [facility] [place] [phone] Magalys Dexter CRNP [address] [place] [address] 05/01/2024 10:40 AM EDT Office Visit Family Medicine [address] [place] [phone] Manisha Villa CRNP [address] [place] [address] [place] [address] 05/24/2024 10:45 AM EDT Office Visit Urology, [facility] [place] [address] Torrey Abdi MD 27 [facility] [place] [address] 07/20/2024 1:00 PM EDT Nurse Only Ancillary [address] [place] [phone] Candice, Nurse Annual [address] [place] [phone] 07/24/2024 2:20 PM EDT Office Visit Dermatology [address] [place] [address] Bertha Kapoor PA-C [address] [place] [address] [place] [address] 11/27/2024 2:00 PM EDT Office Visit Family Medicine [address] [place] [phone] Anna King MD [address] [place] [address] [place] [id number] Scheduled Procedures Name Priority Associated Diagnoses Date/Ti me COLONOSCOPY FLEXIBLE PROXIMAL DIAGNOSTIC Recall History of colon polyps Health Maintenance Due Date Last Done Comments Colonoscopy 12/17/2020 12/17/2017, 10/2017, 11/09/2014, Additional history exists COVID-19 Vaccine ( season) 2023 03/01/2023, 12/19/2021, 12/10/2020, Additional history exists CKD PHOS USE SMARTSET 15497 01/13/202406/2022, 01/11/2023, 01/10/2023, Additional history exists Albumin/Creatinine Ratio 03/01/2024 024, 02/13/2022, 10/25/2014 GFR 06/05/2024 12/06/2023, 08/2023, 10/31/2023, Additional history exists Adult Wellness Visit 07/18/2024 07/19/2023, 01/12/2022, 12/10/2020 CKD HGB USE SMARTSET 56830 11/14/202411/14, 11/15/2023, 10/31/2023, Additional history exists TSH [...] Discussed due to patient's condition Care Teams Regional Commercial Sales Manager Relationship Specialty Start Date End Date Anna King MD [address] [place] [address] [place] [id number] PCP - General Family Medicine 07/24/13 documented as of this encounter
--- OUTSIDE RECORDS SUMMARY | 2024-01-06 09:55 | External Medical Summary | Summary of Care ---
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 (Household - for [...] 8:40 AM EST Office Visit Pulmonary Medicine, [facility] 132 [facility] [place] [address] Dusty Youssef MD [address] [facility] [phone] 01/25/2024 1:40 PM EST Office Visit Family Medicine [address] [place] [phone] Anna King MD [address] [place] [address] [place] [phone] 03/30/2024 2:00 PM EST Office Visit Cardiology [address] [place] [address] Wellington Parrish PA-C [address] [place] [address] 04/04/2024 10:00 AM EST Office Visit Nephrology, [facility] [address] [place] [address] Darwin Barker MD [address] [place] [address] 04/11/2024 2:00 PM EST Office Visit Sleep Disorders [facility] 132 [facility] [place] [phone] Magalys Dexter CRNP [address] [place] [address] 05/01/2024 10:40 AM EDT Office Visit Family Medicine [address] [place] [phone] Manisha Villa CRNP [address] [place] [address] [place] [id number] 05/24/2024 10:45 AM EDT Office Visit Urology, [facility] [place] [address] Torrey Abdi MD 27 [place] [address] 07/20/2024 1:00 PM EDT Nurse Only Ancillary [address] [place] [address] Candice, Nurse [address] [place] [address] 07/24/2024 2:20 PM EDT Office Visit Dermatology [address] [place] [address] Bertha Kapoor PA-C [address] [place] [address] [place] [phone] 11/27/2024 2:00 PM EDT Office Visit Family Medicine [address] [place] [phone] Anna King MD [address] [place] [address] [place] [address] Scheduled Procedures Name Priority Associated Diagnoses Date/Ti me COLONOSCOPY FLEXIBLE PROXIMAL DIAGNOSTIC Recall History of colon polyps Health Maintenance Due Date Last Done Comments Colonoscopy 12/17/2020 12/17/2017, 10/2017, 11/09/2014, Additional history exists COVID-19 Vaccine ( season) 2023 03/01/2023, 12/19/2021, 12/10/2020, Additional history exists CKD PHOS USE SMARTSET 26691 01/13/202406/2022, 01/11/2023, 01/10/2023, Additional history exists Albumin/Creatinine Ratio 03/01/2024 024, 02/13/2022, 10/25/2014 GFR 06/05/2024 12/06/2023, 08/2023, 10/31/2023, Additional history exists Adult Wellness Visit 07/18/2024 07/19/2023, 01/12/2022, 12/10/2020 CKD HGB USE SMARTSET 37650 11/14/202411/14, 11/15/2023, 10/31/2023, Additional history exists TSH [...] Name Priority Date/Time Associated Diagnosis Comments RADIOLOGY SCANNED RESULT 12/22/2023 documented in this encounter Results * RADIOLOGY SCANNED RESULT (12/22/2023) 12/22/2023 us No Physician Data Unknown DIAGNOSTIC RADIOLOGY S ERVICES Final Result documented in this encounter Advance Directives * Full Code (Latest Code Status on File) Date Activated Date Inactivated Comments 01/04/2023 6:10 PM 01/15/2023 4:20 PM This order reflects the patients wishes and were consensually agreed upon. Question Answer Comments Discussion of Advance Direct marianna occurred with: Not Discussed due to patient's condition Care Teams Upstairs Maid Relationship Specialty Start Date End Date Anna King MD [address] [place] [address] [place] Her [phone] PCP - General Family Medicine 07/24/13 documented as of this encounter
--- OUTSIDE RECORDS SUMMARY | 2024-01-06 09:55 | External Medical Summary | Summary of Care ---
Author Name Unknown Organization [facility] Address [address] [place] [address] Phone [phone] Care Team Providers Care Animal Rehabilitator Name Role Phone Anna King MD Primary Care Provide r Reason for Visit * Reason Onset Date Comments Order Request 12/16/2023 Encounter Details Date Type Department Care Team (Late st Contact Info) Description 12/16/2023 Telephone Family Medicine [address] [phone] Anna King MD [address] [place] [address] [place] [id number] Order Request Allergies Active [...] 02/26/19 21 Atherosclerotic heart diseas e of circle coronary artery without angina pectoris 02/27/2020 Pancreas [...] 12/17/2023 11:50 AM EST Order submitted through [employer] for wheelchair. * Telephone Encounter - Anna [...] Asking if it can be sent to [facility] in [place]? documented in this encounter Plan of Treatment Upcoming Encounters Date Type Department Care Team (Late st Contact Info) Description 01/18/2024 8:40 AM EST Office Visit Pulmonary Medicine, [facility] [address] [facility] [place] [address] Dusty Youssef MD [address] [place] [address] [place] [id number] 01/25/2024 1:40 PM EST Office Visit Family Medicine [address] [place] [phone] Anna King MD [address] [place] [address] [place] [id number] 03/30/2024 2:00 PM EST Office Visit Cardiology [address] [place] [address] Wellington Parrish PA-C [address] [place] [address] 04/04/2024 10:00 AM EST Office Visit Nephrology, [facility] [address] [place] [address] aDrwin Barker MD [address] [place] [address] 04/11/2024 2:00 PM EST Office Visit [facility] [place] [phone] Magalys Dexter CRNP [address] [place] [address] 05/01/2024 10:40 AM EDT Office Visit Family Medicine [address] [place] [phone] Manisha Villa CRNP [address] [place] [address] [place] [id number] 05/24/2024 10:45 AM EDT Office Visit Urology, [facility] [place] [address] Torrey Abdi MD [address] [facility] [place] [address] 07/20/2024 1:00 PM EDT Nurse Only Ancillary [address] [place] [phone] Candice, Nurse Annual [address] [place] [address] 07/24/2024 2:20 PM EDT Office Visit Dermatology [address] [place] [address] Bertha Kapoor PA-C [address] [place] [address] [place] [id number] 11/27/2024 2:00 PM EDT Office Visit Family Medicine [address] [place] [phone] Anna King MD [address] [place] [address] [place] [id number] Scheduled Procedures Name Priority Associated Diagnoses Date/Ti me COLONOSCOPY FLEXIBLE PROXIMAL DIAGNOSTIC Recall History of colon polyps Health Maintenance Due Date Last Done Comments Colonoscopy 12/17/2020 12/17/2017, 10/2017, 11/09/2014, Additional history exists COVID-19 Vaccine ( season) 2023 03/01/2023, 12/19/2021, 12/10/2020, Additional history exists CKD PHOS USE SMARTSET 73988 01/13/202406/2022, 01/11/2023, 01/10/2023, Additional history exists Albumin/Creatinine Ratio 03/01/2024 024, 02/13/2022, 10/25/2014 GFR 06/05/2024 12/06/2023, 08/2023, 10/31/2023, Additional history exists Adult Wellness Visit 07/18/2024 07/19/2023, 01/12/2022, 12/10/2020 CKD HGB USE SMARTSET 13555 11/14/202411/14, 11/15/2023, 10/31/2023, Additional history exists TSH [...] Discussed due to patient's condition Care Teams Animal Rehabilitator Relationship Specialty Start Date End Date Anna King MD [address] [place] [address] [place] [id number] PCP - General Family Medicine 07/24/13 documented as of this encounter
--- OUTSIDE RECORDS SUMMARY | 2024-01-06 09:56 | External Medical Summary | Summary of Care ---
Author Name Unknown Organization [facility] Address [address] [place] [address] Phone [phone] Care Team Providers Care Tonguer Name Role Phone Anna King MD Primary Care Provide r Reason for Visit * Reason Comments Outpatient Testing Encounter Details Date Type Department Care Team (Late st Contact Info) Description 12/06/2023 11:10 AM EDT [facility] [phone] [facility] [address] Cor pulmonale, chronic (HCC) Allergies Active Allergy Reactions Criticality Noted Date Comments Niacin 09/20/2002 niaspan-flushing Oxycodone-Acetaminophen 08/18/2014 Propoxyphene Napsylate 03/08/2003 rash documented as of this encounter (statuses as of 12/06/2023) Medications Medication Sig Dispensed Refills Start Date End Date Status ASPIRIN 81 MG PO CHEW Take 1 Tablet by mouth in the morning. 100 5 02/21/2007 Active MULTIVITAMIN/IRON PO TABS Take 1 Tablet by mouth daily with dinner. 0 07/26/2008 Active GLUCOSAMINE 1500 COMPLEX PO CAPS Take 1 Capsule by mouth daily with dinner. 0 07/26/2008 Active CALCIUM 600+D 600-400 MG-UNIT PO TABS [...] CPAP during hours of sleep 1 Each 02/11/2021 Active Magnesium 400 MG Oral Capsule Take 1 Capsule by mouth at bedtime. 31 Capsule 5 04/03/2021 Active Escitalopram Oxalate 20 MG Oral Tablet (Lexapro) Take 1 Tablet by mouth in the morning. 31 Tablet 5 04/03/2021 Active OLANZapine 5 MG Oral Tablet (zyPREXA) Take 1 Tablet by mouth at bedtime. 30 Tablet 04/07/2021 Active Mirtazapine 30 MG Oral Tablet Take 1 Tablet by mouth at bedtime. 30 Tablet 02/19/2022 Active Leuprolide Acetate (3 Month) 22.5 MG Intramuscular Kit (Lupron) Inject 22.5 mg into a large muscle. Every 3 months, given by Urology, depending on his PSA. Active Acetaminophen 325 MG Oral Tablet (Tylenol) Take 2 Tablets by mouth every 4 hours as needed for Pain, Mild, Pain, Moderate or Fever >38C(100.5F). 30 Tablet 01/15/2023 Active dilTIAZem HCl ER 180 MG Oral Capsule Extended Release 24 HourIndications:Longs tanding persistent atrial fibrillation (HCC) TAKE 1 CAPSULE BY MOUTH EVERY DAY IN THE MORNING 90 Capsule 3 03/01/2023 Active ProAir HFA 108 (90 Base) MCG/ACT Inhalation Aerosol SolutionIndications:R estrictive lung disease,Bronchiectasi s without complication (HCC),Interstitial pulmonary disease (HCC) 2 doses inhaled every 4-6 hours as needed for shortness of breath, cough or wheeze 18 g 5 03/17/2023 Active Atorvastatin Calcium 20 MG Oral Tablet (Lipitor)Indications: Dyslipidemia, goal LDL below 100 Take 1 Tablet by mouth at bedtime. 90 Tablet 3 03/25/2023 Active Melatonin 5 MG Oral Capsule Take 1 Capsule by mouth at bedtime. Active Fluticasone-Salmetero l 250-50 MCG/ACT Inhalation Aerosol Powder Breath Activated (Wixela Inhub)Indications:Mil d persistent asthma without complication INHALE 1 PUFF BY MOUTH TWICE A DAY 180 Each 1 05/12/2023 Active Spironolactone 25 MG Oral Tablet (Aldactone)Indication s:Renal dysfunction,HTN, goal below 140/90 Take 0.5 Tablets by mouth every other day. 05/21/2023 Active Tamsulosin HCl 0.4 MG Oral Capsule (Flomax) TAKE 1 CAPSULE BY MOUTH EVERY DAY IN THE MORNING 90 Capsule 3 05/26/2023 Active cycloSPORINE 0.05 % Ophthalmic Emulsion (Restasis) Instill 1 Drop into both eyes at bedtime. Active Apixaban 2.5 MG Oral Tablet (Eliquis) Take 1 Tablet by mouth in the morning and 1 Tablet before bedtime. 180 Tablet 3 08/13/2023 Active Sodium Chloride 3 % Inhalation Nebulization Solution Inhale 3 mL via nebulizer in the morning and 3 mL before bedtime. 180 mL 08/24/2023 Active Metoprolol Succinate ER 50 MG Oral Tablet Extended Release 24 Hour (toPROL XL) Take 1 Tablet by mouth in the morning and 1 Tablet before bedtime. 180 Tablet 3 10/27/2023 Active Levothyroxine Sodium 75 MCG Oral Tablet (Levoxyl)Indications: Acquired hypothyroidism TAKE 1 TABLET BY MOUTH EVERY DAY (AT LEAST 30 MINUTES PRIOR TO BREAKFAST OR OTHER MEDICATIONS) 90 Tablet 2 11/12/2023 Active Torsemide 20 MG Oral Tablet (Demadex)Indications: Heart failure, diastolic, due to HTN (HCC) Take 3 Tablets by mouth in the morning. 270 Tablet 3 11/17/2023 Active Albuterol Sulfate (2.5 MG/3ML) 0.083% Inhalation Nebulization Solution (Proventil) Inhale 1 Vial via nebulizer every 4 hours as needed for Wheezing or Shortness of Breath. 360 mL 11 11/17/2023 Active documented as of this encounter (statuses as of 12/06/2023) Active Problems Problem Noted Date Diagnosed Date [...] 02/26/19 21 Atherosclerotic heart diseas e of [place] coronary artery without angina pectoris 02/27/2020 Pancreas [...] atrial fibrillation 05/09 Restrictive lung disease 01/09/2016 Overview: moderate Acquired hypothyroidism 10/31/2014 Hx of actinic keratosis 07/24/2013 Dyslipidemia, goal LDL below 100 02/28/2010 Gout 11/06/2009 HTN, goal below 140/90 12/14/2008 Overview: Modified per HTN Taxonomy. ADVANCE DIRECTIVE INFORMATION 09/22/2004 Overview: Yes, Patient instructed to provide copy of advance directive for provider to review and to be scanned into Electronic Medical Record BPH without obstruction/lower urinary tract symp toms 03/08/2003 ARTHROPATHY NOS-PELVIS 02/14/2003 Hip joint replacement status 01/02/2003 documented as of this encounter (statuses as of 12/06/2023) Resolved Problems Problem Noted Date Diagnosed Date [...] [4] removed 3 BENIGN HYPERTENSION 06/09/2000 12/15/19 Overview: Modified per HTN Taxonomy. Mixed dyslipidemia 06/09/2000 9 Major depression, single episode 06/09/2000 11/30/2017 Benign prostatic hyperplasia 02/27/2010 Overview: ICD-10 update of inactive term ICD-10 update of inactive term documented as of this encounter (statuses as of 12/06/2023) Immunizations Name Administration Dates Next Due COVID-19 mRNA, LNP-s, No Pre serve, 2-Dose Series (Moderna) 12/01/2020,04/17/2020,03/20/2020 COVID-19, MRNA-LNP, 23-24, P F, 30 MCG/0.3 mL, 12 YRS AND ABOVE, IM (PFIZER-Comirnaty) [...] Answer Date Recorded PHQ Adult Total Score 1 07/19/2023 Hunger Vital Sign Answer Date Recorded Within the past 12 months, y ou worried that your food would run out before you got the money to buy more. Never true 07/19/19 24 Within the past 12 months, t he food you bought just didn't last and you didn't have money to get more. Never true 07/19/2023 Childcare Answer Date Recorded Do you feel overwhelmed with taking care of a child, family member or friend? No 07/19/2023 Does your family need help f inding childcare? (Household - for ages 0-17 years) Not on file 07/19/2023 Clothing Answer Date Recorded Have you been unable to get clothing when it was really needed? No 07/19/2023 Is your family able to get c lothes or diapers when needed? (Household - for ages 0-17 years) Not on file 07/19/2023 Personal Safety Answer Date Recorded Do you feel unsafe or have concerns for your saf ety? No 07/19/2023 Do you have concerns for you r family's safety? (Household - for ages 0-17 years) Not on file 07/19/2023 Utilities Answer Date Recorded Do you have trouble paying y our heating, water, or electric bill? No 07/19/2023 Is your family able to pay t he heat, water, or electric bill? (Household - for ages 0-17 years) Not on file 07/19/2023 Does your family have access to good internet? (Household - for ages 0-17 years) Not on file 07/19/2023 Employment Status Answer Date Recorded Are you unemployed or without regular income? No 07/19/2023 Does the household have a [facility] source of income? (Household - for ages 0-17 years) Not on file 07/19/2023 Social Connections Answer Date Recorded How often do you feel lonely or isolated from those around you? Sometimes 07/19/2023 Financial Resource Strain Answer Date R ecorded Do you have any trouble payi ng for your medications, or do you think you might in the future? No 07/19/2023 Does your family have troubl e paying for medicine? (Household - for ages 0-17 years) Not on file 07/19/2023 Transportation Needs Answer Date Record ed READ ONLY Do you have troubl e getting a ride to medical visits or work? Never True 07/19/2023 Does your family have a hard time getting a ride to doctors visits? (Household - for ages 0-17 years) Not on file 07/19/2023 Has lack of transportation k ept you from medical appointments, meetings, work, or from getting things needed for daily living? Check all that apply. (Adult - for ages 18 years and over) Not on file 07/19/2023 Do you (or your family) have trouble finding or paying for a ride (transportation)? (Household - for ages 0-17 years) Not on file 07/19/2023 Housing Stability Answer Date Recorded Do you currently live in a s helter or have no steady place to sleep at night? No 07/19/2023 READ ONLY Do you think you a re at risk of becoming homeless? No 07/19/2023 Does your family worry about paying for your home or becoming homeless? (Household - for ages 0-17 years) Not on file 0 07/19/2023 Are you homeless or worried that you might be in the future? (Adult - for ages 18 years and over) Not on file Are you (or your family) alexa eless or worried that you might be in the future? (Household - for ages 0-17 years) Not on file Food Insecurity Answer Date Recorded Do you need food for this week? No 07/19/2023 Are you able to get enough f ood for your family? (Household - for ages 0-17 years) Not on file 07/19/2023 Does your family need food t his week? (Household - for ages 0-17 years) Not on file 07/19/2023 Do you always have enough fo od for your family? (Household - for ages 0-17 years) Not on file 07/19/2023 Sex and Gender Information Value Date Recorded [...] Care Team (Late st Contact Info) Description 03/30/2024 2:00 PM EST Office Visit Cardiology [address] [place] [address] Wellington Parrish PA-C [address] [place] [address] 04/04/2024 10:00 AM EST Office Visit NephrologyTom [address] [place] [address] Darwin Barker MD [address] [place] [address] 04/11/2024 2:00 PM EST Office Visit Sleep Disorders Ctr [facility] 132 [facility] [place] [phone] Magalys Dexter CRNP 132 [facility] [place] [address] 05/01/2024 10:40 AM EDT Office Visit Family [address] [place] [phone] Manisha Villa CRNP [address] [place] [address] [place] [address] 05/24/2024 10:45 AM EDT Office Visit Urology, [facility] [address] [facility] [place] [address] Torrey Abdi MD [address] [place] [address] 07/20/2024 1:00 PM EDT Nurse Only Ancillary [address] [place] [address] [place], Nurse [address] [place] [id number] 07/24/2024 2:20 PM EDT Office Visit Dermatology [address] [place] [address] Bertha Kapoor PA-C [address] [place] [address] [place] [address] 11/27/2024 2:00 PM EDT Office Visit Family Medicine [address] [place] [phone] Anna King MD [address] [place] [address] [place] [id number] Pending Results Name Type Priority Associated Diagnoses Date /Time BASIC METABOLIC PANEL Lab Routine Cor pulmonale, chronic (HCC) 12/06/2023 10:45 AM EDT Scheduled Procedures Name Priority Associated Diagnoses Date/Ti me COLONOSCOPY FLEXIBLE PROXIMAL DIAGNOSTIC Recall History of colon polyps Health Maintenance Due Date Last Done Comments Colonoscopy 12/17/2020 12/17/2017, 10/2017, 11/09/2014, Additional history exists COVID-19 Vaccine ( season) 2023 03/01/2023, 12/19/2021, 12/10/2020, Additional history exists CKD PHOS USE SMARTSET 99623 01/13/202406/2022, 01/11/2023, 01/10/2023, Additional history exists Albumin/Creatinine Ratio 03/01/2024 024, 02/13/2022, 10/25/2014 GFR 05/15/2024 11/15/2023, 10/10, 07/30/2023, Additional history exists Adult Wellness Visit 07/18/2024 07/19/2023, 01/12/2022, 12/10/2020 Depression Monitoring 07/18/2024 07/19/2023 CKD HGB USE SMARTSET 11085 11/14/202411/14, 11/15/2023, 10/31/2023, Additional history exists TSH 11/14/2024 11/15/2023, 03/2023, 01/10/2023, Additional history exists DTap/Tdap Vaccines (2 - [...] as of this encounter Visit Diagnoses Diagnosis Cor pulmonale, chronic (HCC) Chronic pulmonary heart disease, unspecified documented in this encounter Advance Directives * Full Code (Latest Code Status on File) Date Activated Date Inactivated Comments 01/04/2023 6:10 PM 01/15/2023 4:20 PM This order reflects the patients wishes and were consensually agreed upon. Question Answer Comments Discussion of Advance Direct marianna occurred with: Not Discussed due to patient's condition Care Teams Tonguer Relationship Specialty Start Date End Date Anna King MD [address] [place] [address] [place] [id number] PCP - General Family Medicine 07/24/13 documented as of this encounter
--- OUTSIDE RECORDS SUMMARY | 2024-01-06 09:56 | External Medical Summary | Summary of Care ---
Author Name Unknown Organization [facility] Address [address] [place] [address] Phone [phone] Care Team Providers Care Family Development Specialist Name Role Phone Anna King MD Primary Care Provide r Reason for Visit * Reason Comments Follow Up Encounter Details Date Type Department Care Team (Late st Contact Info) Description 11/15/2023 9:30 AM EDT Office Visit Urology, [facility] [address] [facility] [place] [phone] Torrey Abdi MD [address] [place] [phone] Prostate cancer (HCC)*; Urge incontinence; BPH with obstruction/lower urinary tract symptoms; Rising PSA following treatment for malignant neoplasm of prostate Allergies Active Allergy Reactions Criticality Noted Date Comments Niacin 09/20/2002 niaspan-flushing Oxycodone-Acetaminophen 08/18/2014 Propoxyphene Napsylate 03/08/2003 rash documented as of this encounter (statuses as of 11/15/2023) Medications Medication Sig Dispensed Refills Start Date [...] by Urology, depending on his PSA. Active Albuterol Sulfate (2.5 MG/3ML) 0.083% Inhalation Nebulization Solution (Proventil) Inhale 1 Vial via nebulizer every 4 hours as needed for Wheezing or Shortness of Breath. 360 mL 11 01/15/2023 Active Acetaminophen 325 MG Oral Tablet (Tylenol) [...] before bedtime. 180 Tablet 3 10/27/2023 Active Torsemide 20 MG Oral Tablet (Demadex)Indications: Heart failure, diastolic, due to HTN (HCC) Take 2 Tablets by mouth in the morning. 180 Tablet 1 11/03/2023 Active Levothyroxine Sodium 75 MCG Oral Tablet (Levoxyl)Indications: Acquired hypothyroidism TAKE 1 TABLET BY MOUTH EVERY DAY (AT LEAST 30 MINUTES PRIOR TO BREAKFAST OR OTHER MEDICATIONS) 90 Tablet 2 11/12/2023 Active documented as of this encounter (statuses as of 11/15/2023) Active Problems Problem Noted Date Diagnosed Date [...] 02/26/19 21 Atherosclerotic heart diseas e of [place] coronary artery without angina pectoris 02/27/2020 Pancreas [...] as of this encounter (statuses as of 11/15/2023) Resolved Problems Problem Noted Date Diagnosed Date [...] IIA(T1c, N0, M0, PSA: Less than 10, Merriman 7) - Signed by Jace Means MD [...] [4] removed 04-08 BENIGN HYPERTENSION 06/09/2000 12/15/19 Overview: Modified per HTN Taxonomy. Mixed dyslipidemia 06/09/2000 9 Major depression, single episode 06/09/2000 11/30/2017 Benign prostatic hyperplasia 02/27/2010 Overview: ICD-10 update of inactive term ICD-10 update of inactive term documented as of this encounter (statuses as of 11/15/2023) Immunizations Name Administration Dates Next Due COVID-19 [...] No 07/19/2023 Does the household have a [facility] source [facility] income? (Household - for [...] on file documented as of this encounter Progress Notes * Torrey Abdi MD - 11/15/2023 9:47 AM EDT [id number] PCP: ANNA KING [address] [place] [address] [place] [id number] Cristhian May is a 83 year old male, who presents for delayed follow-up of his history of bothersomevoiding symptoms and prostate cancer. Patient's past notes reviewed. Patient's PSA has stabilized at less than 1. It has been a decade since his initial therapy. Lupron was provided earlier this year. Plan for intermittent therapy is noted. He notes slow convalescence after his spinal surgery. Prostate Cancer: Managed with [facility] in [place] by Dr. Palomares in 2014. He feels the Flomax is very helpful, pleased with results. CT from 05/07/21 was negative for evidence of metastatic disease. Lupron Apr 2022, last Feb 2023 for PSA of 11. Using safety pad. Incontinence: Worse since back surgery in Dec 2022. Previously with incomplete emptying. CT scan July 2022: IMPRESSION: 1. No dissection. 2. Mild basilar airspace disease bilaterally. Bronchial wall thickening with mild bronchiectasis most conspicuous within the left lung base. Atelectasis and/or infiltrates. Eventration of the right hemidiaphragm. 3. Degenerative changes are present within the spine.No visualized osteoblastic metastases. 4. Tiny nodular density of approximately 2 mm abutting the minor fissure. See image number 127 series 14. Bone scan July 2022: IMPRESSION No evidence of osteoblastic metastatic disease. PSA Results: Lab Results Component Value Date/Time PSA - [facility] 0.86 09/06/2023 11:52 AM PSA - [facility] 0.79 05/20/2023 01:37 PM PSA - [facility] 1.16 03/01/2023 01:20 PM PSA - [facility] 0.37 06/01/2019 09:20 AM PSA - [facility] 0.22 11/01/2018 10:12 AM PSA - [facility] 0.20 06/01/2018 10:57 AM PSA SCREENING 4.58 (H) 12/22/2011 07:40 AM PSA SCREENING 4.46 (H) 06/13/2008 09:04 AM PSA SCREENING 2.17 05/12/2007 11:41 AM Current Outpatient Medications Medication Sig Dispense Refill [...] given by Urology, depending on his PSA. Albuterol Sulfate (2.5 MG/3ML) 0.083% Inhalation Nebulization [...] DAY IN THE MORNING 90 Capsule 3 cycloSPORINE 0.05 % Ophthalmic Emulsion (Restasis) Instill [...] 1 Tablet before bedtime. 180 Tablet 3 Torsemide 20 MG Oral Tablet (Demadex) Take 2 Tablets by mouth in the morning. 180 Tablet 1 Levothyroxine Sodium 75 MCG Oral Tablet (Levoxyl) TAKE 1 TABLET BY MOUTH EVERY DAY (AT LEAST 30 MINUTES PRIOR TO BREAKFAST OR OTHER MEDICATIONS) 90 Tablet 2 No current facility-administered medications for this visit. Review of patient's allergies indicates: Allergen Reactions Niacin niaspan-flushing Oxycodone-Acetaminophen Propoxyphene Napsylate rash Social History: Social History Tobacco Use Smoking status: Former Current packs/day: 0.00 Average packs/day: 1.5 packs/day for 24.0 years (36.0 ttl pk-yrs) Types: Cigarettes Start date: 02/08/1954 Quit date: 02/08/1978 Years since quittin.7 Smokeless tobacco: Former Types: Snuff, Chew Quit date: 1969 Substance Use Topics Alcohol use: Not Currently Vaping/E-Cigarette Use Vaping/E-Cigarette Use Never User Vaping/E-Cigarette Substances Vaping/E-Cigarette Devices Family History Problem Relation Name Age of Onset Other (Blood clot) Brother Renal Hx Brother Renal failure Diabetes Daughter Cancer Daughter breast Past Surgical History: Procedure Laterality Date COLONOSCOPY 2007 Dr. Machado--umremarkable COLONOSCOPY 2000 Jeannette--polyps COLONOSCOPY, DIAGNOSTIC (RECTUM) 11/09/2014 hyperplastic polyps, suboptimal prep, repeat 3 yrs/COLONOSCOPY FLEXIBLE PROXIMAL DIAGNOSTIC performed by Digna Ridley DO at [facility] COLONOSCOPY, DIAGNOSTIC (RECTUM) 12/17/2017 hyperplastic polyp, repeat 3 yrs/COLONOSCOPY FLEXIBLE PROXIMAL DIAGNOSTIC performed by Digna Ridley DO at [facility] CYSTOSCOPY 09/03/2014 EGD, FLEXIBLE, BALLOON DILATION >=30MM N/A 01/08/2023 ESOPHAGOGASTRODUODENOSCOPY (EGD), FLEXIBLE, TRANSORAL: BALLOON DILATION (30 MM OR MORE) performed by Boston Bennett MD at [facility] EGD, FLEXIBLE, DIAGNOSTIC N/A 01/07/2023 ESOPHAGOGASTRODUODENOSCOPY (EGD), FLEXIBLE, TRANSORAL, DIAGNOSTIC performed by Boston Bennett MD at [facility] EGD, FLEXIBLE, DIAGNOSTIC N/A 01/06/2023 ESOPHAGOGASTRODUODENOSCOPY (EGD), FLEXIBLE, TRANSORAL, DIAGNOSTIC performed by Boston Bennett MD at [facility] EGD, FLEXIBLE, DIAGNOSTIC N/A 12/15/2022 normal/EGD/[place] EGD, W/ENDOSCOPIC US 08/07/2019 pseudocysts, repeat 3 mo / ESOPHAGOGASTRODUODENOSCOPY (EGD), FLEXIBLE, TRANSORAL, ENDOSCOPIC ULTRASOUND performed by Kiran Lucia MD at [facility] EGD, W/ENDOSCOPIC US 01/15/2020 pancreatic mucinous cyst / ESOPHAGOGASTRODUODENOSCOPY (EGD), FLEXIBLE, TRANSORAL, ENDOSCOPIC ULTRASOUND performed by Kiran Lucia MD at [facility] INFORMATION 1971 vasectomy down in [facility] INTERSTITIAL RADIATION APPLICATION, COMPLEX 08/23/2013 INSTERSTITIAL RADIATION SOURCE APPLICATION COMPLEX performed by Chu Palomares MD at [facility] LUMBAR SPINE FUSION, POST INTERBODY N/A 12/03/2022 Dr. Esteves L2-L5 PROCTOSIGMOIDOSCOPY/REMOVE LESION benign REMOVAL OF ANORECTAL LESION REMOVAL OF TONSILS, AGE 12+ THORAX SPINE FUSION, POSTEROLATERAL 12/09/2022 Dr. 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 [address] TRANS PL OF NEED OR CATH IN [place] 08/23/2013 TRANSPERINEAL PLACEMENT NEEDLES INTO PROSTATE FOR INTERSTITIAL RADIOELEMENT W/O CYSTOSCOPY performed by Chu Palomares MD at [facility] ULTRASONIC GUIDE, INTERSTITIAL RADIOELEMENT 08/23/2013 ULTRASONIC GUIDED INTERSTITIAL RADIOELEMENT APPLICATION performed by Chu Palomares MD at [facility] Past Medical History: Diagnosis Date (HFpEF) heart failure with preserved ejection fraction (HCC) 01/04/2023 Achalasia 01/04/2023 Asthma, severity to be determined BENIGN NEOPLASM LG BOWEL 10/17/2001 hx of multiple hyperplastic polyps [4] removed 3- BPH without obstruction/lower urinary tract symptoms Bronchiectasis (HCC) Chronic kidney disease, stage 3b (HCC) 03/24/2021 Per CKD protocol Depressive disorder, not elsewhere classified Generalized osteoarthritis HTN, goal below 140/90 Mixed dyslipidemia RUDY treated with BiPAP 04/21/2018 Other schizophrenia (HCC) 05/16/2021 Persistent atrial fibrillation (HCC) 05/26/2016 Post-traumatic stress disorder, chronic 02/27/2020 Prostate cancer (HCC) Merriman score 7 Restrictive lung disease 01/2016 moderate RHF (right heart failure) (HCC) 06/12/2016 Severe episode of recurrent major depressive disorder, with psychotic features (HCC) 08/18/2017 Sleep apnea, obstructive Tachy-noni syndrome ([facility]) 08/10/2017 Patient Active Problem List Diagnosis Hip joint [...] treated with BiPAP History of colon polyps TIBURCIO (generalized anxiety disorder) Undescended left testicle Pancreas cyst Asthma, mild persistent Post-traumatic stress disorder, chronic Atherosclerotic heart disease of [place] coronary artery without angina pectoris Other schizophrenia [...] (HCC) History of fusion of lumbar spine Constitutional: (-) fever and (-) chills Eyes: (+) corrective lenses Pulmonary: (+) dyspnea Male : See HPI Musculoskeletal: (+) muscle weakness and (+) back pain/problems Neurology: (+) loss of balance Psychiatry: (+) depression Physical Exam Nursing note reviewed. Constitutional: Appearance: He is not toxic-appearing. Comments: Using wheelchair HENT: Head: Normocephalic and atraumatic. Right Ear: External ear normal. Left Ear: External ear normal. Nose: Nose normal. Mouth/Throat: Mouth: Mucous membranes are moist. Eyes: Extraocular Movements: Extraocular movements intact. Pulmonary: Effort: Respiratory distress (using NC O2) present. Abdominal: General: There is no distension. Skin: Coloration: Skin is not pale. Neurological: Mental Status: He is oriented to person, place, and time. Motor: Weakness present. Gait: Gait abnormal. Psychiatric: Behavior: Behavior normal. Thought Content: Thought content normal. Impression/Plan: 83-year-old with a history of prostate cancer on intermittent androgen deprivationtherapy, We are pleased with the patient's previous PSA values. Seen his ongoing medical difficulties we will check a value today and in 6 months time. The possibility of continuing intermittent therapy depending on PSA trend is reviewed. Patient is currently satisfied with his voiding, seems to be somewhatimproved since his last visit. Will hold on other changes to his medical regimen from urologic perspective for now. Above content is personally reviewed. Patient vocalizes good understanding of the treatment plan. Torrey Abdi MD 9:47 AM 11/15/2023 documented in this encounter Nursing Notes * Allyson Vaca LPN - 11/15/2023 9:20 AM EDT 6 month ret history of prostate cancer Tamsulsoin PSA Results: Lab Results Component Value Date/Time PSA - [facility] 0.86 09/06/2023 11:52 AM PSA - [facility] 0.79 05/20/2023 01:37 PM PSA - [facility] 1.16 03/01/2023 01:20 PM PSA - [facility] 0.37 06/01/2019 09:20 AM PSA - [facility] 0.22 11/01/2018 10:12 AM PSA - [facility] 0.20 06/01/2018 10:57 AM PSA SCREENING 4.58 (H) 12/22/2011 07:40 AM PSA SCREENING 4.46 (H) 06/13/2008 09:04 AM PSA SCREENING 2.17 05/12/2007 11:41 AM No concerns documented in this encounter Plan of Treatment Upcoming Encounters Date Type Department Care Team (Late st Contact Info) Description 11/15/2023 11:10 AM EDT Laboratory Laboratory, [facility] [address] [place] [phone] [facility] [address] [place] [address] Hypertensive heart and kidney disease with chronic diastolic congestive heart failure and stage 3b chronic kidney disease (HCC); Dyslipidemia, goal LDL below 100; Acquired hypothyroidism; Prostate cancer (HCC) 11/17/2023 11:30 AM EDT Office Visit Cardiology, [facility] [address] [place] [phone] Wellington Parrish PA-C [address] [place] [address] 03/30/2024 2:00 PM EST Office Visit Cardiology [address] [place] [phone] Wellington Parrish PA-C [address] [place] [address] 04/04/2024 10:00 AM EST Office Visit Nephrology, [facility] [address] [facility] [place] [address] aDrwin Barker MD [address] [place] [address] 04/11/2024 2:00 PM EST Office Visit Sleep Disorders Ctr [facility] [address] [place] [phone] Magalys Dexter CRNP [address] [place] [address] 05/01/2024 10:40 AM EDT Office Visit Family Medicine [address] [place] [phone] Manisha Villa CRNP [address] [place] [address] [place] [phone] 05/24/2024 10:45 AM EDT Office Visit Urology, [facility] [address] [facility] [place] [address] Torrey Abdi MD [address] [place] [address] 07/20/2024 1:00 PM EDT Nurse Only Ancillary [address] [place] [phone] [place], Nurse Annual Wellness [address] [place] [address] [place] [phone] 07/24/2024 2:20 PM EDT Office Visit Dermatology [address] [place] [address] Bertha Kapoor PA-C [address] [place] [address] [place] [phone] 11/27/2024 2:00 PM EDT Office Visit Family Medicine [address] [place] [phone] Anna King MD [address] [place] [address] [place] [phone] Pending Results Name Type Priority Associated Diagnoses Date /Time PSA Lab Routine Prostate cancer (HCC) 11/15/2023 10:08 AM EDT Scheduled Orders Name Type Priority Associated Diagnoses Orde r Schedule PSA Lab Routine Prostate cancer (HCC) 3 Occurrences starting 11/15/2023 until 11/14/2024 Scheduled Procedures Name Priority Associated Diagnoses Date/Ti me COLONOSCOPY FLEXIBLE PROXIMAL DIAGNOSTIC Recall History of colon polyps Health Maintenance Due Date Last Done Comments Colonoscopy 12/17/2020 12/17/2017, 10/2017, 11/09/2014, Additional history exists COVID-19 Vaccine ( season) 2023 03/01/2023, 12/19/2021, 12/10/2020, Additional history exists CKD PHOS USE SMARTSET 15637 01/13/20240 06/2022, 01/11/2023, 01/10/2023, Additional history exists Albumin/Creatinine Ratio 03/01/2024 024, 02/13/2022, 10/25/2014 GFR 04/29/2024 10/31/2023, 07/10, 05/28/2023, Additional history exists TSH 05/10/2024 05/11/2023, 04/2022, 01/09/2023, Additional history exists Adult Wellness Visit 07/18/2024 07/19/2023, 01/12/2022, 12/10/2020 Depression Monitoring 07/18/2024 07/19/2023 CKD HGB USE SMARTSET 39415 10/30/202410/30, 03/01/2023, 03/01/2023, Additional history exists DTap/Tdap Vaccines (2 - [...] cancer (HCC)- Primary Malignant neoplasm of prostate Urge incontinence BPH with obstruction/lower urinary tract symptoms Hypertrophy of prostate with urinary obstruction and other lower urinary tract symptoms (LUTS) Rising PSA following treatment for malignant neoplasm of prostate Hypertensive heart and kidney disease with chronic diastolic congestive heart failure and stage 3b chronic kidney disease (HCC) Dyslipidemia, goal LDL below 100 Other and unspecified hyperlipidemia Acquired hypothyroidism Unspecified hypothyroidism Prostate cancer (HCC) Malignant neoplasm of prostate documented in this encounter Advance Directives * Full Code (Latest Code Status on File) Date Activated Date Inactivated Comments 01/04/2023 6:10 PM 01/15/2023 4:20 PM This order reflects the patients wishes and were consensually agreed upon. Question Answer Comments Discussion of Advance Direct marianna occurred with: Not Discussed due to patient's condition Care Teams Family Development Specialist Relationship Specialty Start Date End Date Anna King MD [address] [place] [address] [place] [id number] PCP - General Family Medicine 07/24/13 documented as of this encounter
--- OUTSIDE RECORDS SUMMARY | 2024-01-06 09:56 | External Medical Summary | Summary of Care ---
Author Name Unknown Organization [facility] Address [address] [facility] [place] [address] Phone [phone] Care Team Providers Care Assistant Corporation Counsel Name Role Phone Anna King MD Primary Care Provide r Reason for Visit * Reason Comments Hospital Follow-Up [place] 10/29 f or possible pneumonia Encounter Details Date Type Department Care Team (Latest Contact Info) Description 11/17/2023 11:30 AM EDT Office Visit Cardiology, [facility] [address] [place] [address] Wellington Parrish PA-C [address] [place] [address] Heart failure, diastolic, with acute decompensation (HCC)*; Heart failure, diastolic, due to HTN (HCC); HTN, goal below 140/90; Tachy-bipin syndrome (HCC); Cardiac pacemaker in situ; Chronic atrial fibrillation (HCC); Nonrheumatic aortic valve stenosis; Cor pulmonale, chronic (HCC); Sinoatrial node dysfunction (HCC); Renal dysfunction Allergies Active Allergy Reactions Criticality Noted Date Comments Niacin 09/20/2002 niaspan-flushing Oxycodone-Acetaminophen 08/18/2014 Propoxyphene Napsylate 03/08/2003 rash documented as of this encounter (statuses as of 11/17/2023) Medications Medication Sig Dispensed Refills Start Date [...] of Breath. 360 mL 11 4 Active Albuterol Sulfate (2.5 MG/3ML) 0.083% Inhalation Nebulization Solution (Proventil) Inhale 1 Vial via nebulizer every 4 hours as needed for Wheezing or Shortness of Breath. 360 mL 11 3 11/17/19 24 Discontinued(Ref ill) Torsemide 20 MG Oral Tablet (Demadex)Indicatio ns:Heart failure, diastolic, due to HTN (HCC) Take 2 Tablets by mouth in the morning. 180 Tablet 1 4 11/17/19 24 Discontinued documented as of this encounter (statuses as of 11/17/2023) Active Problems Problem Noted Date Diagnosed Date [...] 02/26/19 21 Atherosclerotic heart diseas e of [place] coronary artery without angina pectoris 02/27/2020 Pancreas cyst 03/30/2019 Asthma, mild persistent 03/30/2019 Undescended left testicle 09/23/2018 TIBURCIO (generalized anxiety disorder) 06/13/2018 History of colon polyps 05/10/2018 RUDY treated with BiPAP 04/21/2018 Chronic frontal sinusitis 04/02/2018 Bronchiectasis without complication 08/18/2017 Severe episode of recurrent major depressive disorder, with psychotic features 08/18/2017 Presence of cardiac pacemaker 08/17/2017 Tachy-bipin syndrome 08/10/2017 Longstanding persistent atrial fibrillation 05/09 [...] as of this encounter (statuses as of 11/17/2023) Resolved Problems Problem Noted Date Diagnosed Date [...] IIA(T1c, N0, M0, PSA: Less than 10, [place] 7) - Signed by Jace Means MD [...] as of this encounter (statuses as of 11/17/2023) Immunizations Name Administration Dates Next Due COVID-19 mRNA, LNP-s, No Pre serve, 2-Dose Series (Moderna) 12/01/2020,04/17/2020,03/20/2020 COVID-19, MRNA-LNP, 23-24, P F, 30 MCG/0.3 mL, 12 YRS AND ABOVE, IM [facility] 03/01/2023 COVID-19, mRNA, LNP-s, PF, B ooster, [...] No 07/19/2023 Does the household have a re gular [...] Sign Reading Time Taken Comments Blood Pressure 110/58 11/17/2023 11:27 AM EDT Pulse 64 11/17/2023 11:27 AM EDT Temperature - - Respiratory Rate 20 11/17/2023 11:2 7 AM EDT Oxygen Saturation - - Inhaled Oxygen Concentration - - Weight 100.9 kg (222 lb 6.4 oz) 024 11:27 AM EDT Height - - Body Mass Index 30.16 07/19/2023 1:22 PM EDT documented in this encounter Progress Notes * Wellington Parrish PA-C - 11/17/2023 11:52 AM EDT History of Present Illness: Cristhian May is a very pleasant 83 year old male who returns today for cardiology follow-up evaluation. Recently evaluated at [facility] - chest tightness, shortness of breath, cough. Significant improvement noted with use of albuterol via nebulizer. Notes nebulizer treatment really helped clear a lot of mucus, aiding the rattling in the chest. Prescribed doxycycline for possible pneumonia. Concerned regarding worsening wheezing with use of nebulized sodium chloride solution. notes that he has not been using the flutter valve at all. Concerned regarding worsening fluid retention, weight gain, abdominal stuffiness, left greater thanright lower extremity peripheral edema, water blisters on the left lower extremity recently lanced by Podiatry BiPAP utilized at nighttime with symptom improvement, benefit. No chest pain. No overt palpitations. No PND. No dizziness or syncope. No melena or hematochezia. Patient Active Problem List Diagnosis Hip joint replacement status ARTHROPATHY NOS-PELVIS BPH without obstruction/lower urinary tract symptoms ADVANCE DIRECTIVE INFORMATION HTN, goal below 140/90 Gout Dyslipidemia, goal LDL below 100 Hx of actinic keratosis Acquired hypothyroidism Restrictive lung disease Longstanding persistent atrial fibrillation (HCC) Tachy-bipin syndrome (HCC) Presence of cardiac pacemaker Bronchiectasis without complication (HCC) Severe episode of recurrent major depressive disorder, with psychotic features (HCC) Chronic frontal sinusitis RUDY treated with BiPAP History of colon polyps TIBURCIO (generalized anxiety disorder) Undescended left testicle Pancreas cyst Asthma, mild persistent Post-traumatic stress disorder, chronic Atherosclerotic heart disease of [place] coronary artery without angina pectoris Other schizophrenia [...] (HCC) History of fusion of lumbar spine Social History Tobacco Use Smoking status: Former Smoker Packs/day: 2.50 Years: 24.00 Pack years: 60.00 Types: Cigarettes Last attempt to quit: 02/08/1978 Years since quittin.7 Smokeless tobacco: Former User Types: Snuff, Chew Substance Use Topics Alcohol use: No Drug use: No Review of patient's allergies indicates: Allergen Reactions Niacin niaspan-flushing Oxycodone-Acetaminophen Propoxyphene Napsylate rash Current Outpatient Medications Medication Sig Dispense Refill [...] given by Urology, depending on his PSA. Acetaminophen 325 MG Oral Tablet (Tylenol) Take [...] 1 Tablet before bedtime. 180 Tablet 3 Levothyroxine Sodium 75 MCG Oral Tablet (Levoxyl) TAKE 1 TABLET BY MOUTH EVERY DAY (AT LEAST 30 MINUTES PRIOR TO BREAKFAST OR OTHER MEDICATIONS) 90 Tablet 2 Torsemide 20 MG Oral Tablet (Demadex) Take 3 Tablets by mouth in the morning. 270 Tablet 3 Albuterol Sulfate (2.5 MG/3ML) 0.083% Inhalation Nebulization Solution (Proventil) Inhale 1 Vial via nebulizer every 4 hours as needed for Wheezing or Shortness of Breath. 360 mL 11 No current facility-administered medications for this visit. OBJECTIVE/PHYSICAL EXAMINATION: BP 110/58 | Pulse 64 | Resp 20 | Wt 100.9 kg (222 lb 6.4 oz) | BMI 30.16 kg/m | BSA 2.26 m General: A&Ox3. NAD. HENT: Normocephalic. Atraumatic. Eyes: PER. Conjunctiva pink, sclera clear. Neck: No carotid bruits. VD. Heart: Irregular at 84 bpm. Soft systolic murmur. PMI is nondisplaced. Lungs: Diminished, decreased. Scattered rhonchi/crackles. Expiratory wheeze Abdomen: Obese. +BS. Somewhat firm. Nontender. No masses or organomegaly. Extremities: 1+ hard indurated edema with left greater than right erythema not suggestive of cellulitis, stasis changes. Dressing not removed from left lower extremity. Limited neurological examination is without focal deficits. Pulses: radial=2/4, posterior tibial=1/4. Data: August 06, 2022 TTE Interpretation Summary (as per Dr. Quinones): The qualitative LV ejection fraction is 60-64% (normal). The LV wall thickness is mildly increased (concentric). The left atrium is moderately enlarged (42-48 ml/m^2). The aortic valve is mildly calcified. Mild aortic valve stenosis ispresent. Mild tricuspid regurgitation is present. Compared to last available study changes are noted as follows: Mild aortic valve stenosis now present. August 13, 2022 Lexiscan Interpretation Summary (as per Dr. Adams): Lexiscan nuclear cardiac stresstest negative for ischemia. Gated SPECT images reveals normal myocardial thickening and wall motion. Left ventricular ejection fraction=73%. August 10, 2023 TTE Interpretation Summary (as per Dr. Adams): The LV wall thickness is mildly increased (concentric). The left ventricular wall motion is normal. The qualitative LV ejection fractionis 60-64% (normal). The left atrium is moderately enlarged (42-48 ml/m^2). Mild aortic valve stenosis is present. Mitral stenosis is absent. Mild tricuspid regurgitation is present. The estimated pulmonary artery systolic pressure is 40 mm Hg (mildly elevated). The proximal ascending thoracic aortais mildly enlarged. Compared to the report of the prior study dated 08/06/22, the aortic valve gradients are relatively unchanged. November 01, 2023 device interrogation demonstrated appropriate function, 9.3 years remaining longevity. Mode: VVIR with lower rate at 60 bpm, upper sensor rate of 130 bpm. Ventricular paced 50.1% of the time. Average ventricular rates appear acceptably controlled. ASSESSMENT: Acute decompensated diastolic congestive heart failure exacerbation Lower extremity wounds Chronic atrial fibrillation Anticoagulation with reduced dose Eliquis given age, renal dysfunction Tachy-Bipin Syndrome status post August 03, 2017 single chamber pacemaker implantation (Medtronic device). Mild valvular disease, stable via August 2023 resting echocardiogram. 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 Stage III chronic kidney disease Hypertension, with mild to moderate LVH Dyslipidemia. LDL cholesterol 49 mg/dL on November 15, 2023 Hypothyroidism BPH Depression Prostate cancer Pancreatic cysts Status post left hip replacement, spinal surgery x2 Options discussed with patient and . Via shared decision making, we have agreed to the following: RECOMMENDATIONS/PLAN: Increase torsemide to 40 mg twice per day x3 days then 60 mg daily thereafter. Continue spironolactone 12.5 mg every OTHER day. Follow-up basic metabolic panel in 10 to 14 days, expecting worsening renal dysfunction, obligatory Utilize nebulizer treatments 4 times per day, switching from sodium chloride 2 albuterol noting reported concern for worsening wheezing associated with NaCl use Reinstate flutter valve therapy starting out at twice a day and increasing up to 6 to 8 times per day Continue metoprolol succinate, diltiazem, apixaban, and atorvastatin Cardiology follow-up in 4-6 weeks or as needed. ER with emergencies. Wellington Parrish PA-C Department of Cardiology I spent a total of 40-54 minutes (exact time 45 mins) on the date of service in preparation, delivery, and documentation of the care provided to Cristhian May excluding any time spent in the performance of separately billed services. This visit involved medical care services related to at least one serious condition or complex condition requiring ongoing care. This chart was completed in part utilizing [employer] Speech Voice Recognition Software. Grammatical errors, random word insertions, prounoun errors, and incomplete sentences are an occasional consequence of this system due to software limitations, ambient noise, and hardware issues. Any formal questions or concerns about the content, text, or information contained within the body of this dictation should be directly addressed to the provider for clarification. documented in this encounter Nursing Notes * Dolly Brock CMA - 11/17/2023 11:16 AM EDT Examination Room: 1 Name: Cristhian May Date of : (1940). Reason for Visit: ER follow up Interim Hospitalization(s): [facility] on 10/29 for possible pneumonia and weight [id number] overnight Problems/Concerns: States he has been gaining weight since discharge. Was 217.4 this morning when weighing himself. At this visit he is 222.4 with clothes and shoes. Per case mgmt note on 11/07, his weight varies between 211 and 213. Weight does appear to be trending higher. Chest Pain/SOB: Denies chest pain, SOB not new or worsening [facility] Discussed: Yes [facility] is a way you can talk to your provider online through e-mail. Would you like to sign up? I can activate it for you? DECLINES Patient was instructed to not get up on the exam table until directed and assisted by their provider; patient is to remain seated in the chair/ wheelchair/ exam table for fall prevention and safety reasons. Patient is aware to have assistance to step down off exam table with personnel. Patient voiced full comprehension of instructions. documented in this encounter Plan of Treatment Upcoming Encounters Date Type Department Care Team (Late st Contact Info) Description 03/30/2024 2:00 PM EST Office Visit Cardiology [address] [place] [address] Wellingotn Parrish PA-C [address] [place] [address] 04/04/2024 10:00 AM EST Office Visit Nephrology, [facility] [address] [place] [address] [address] Darwin Barker MD [address] [place] [address] 04/11/2024 2:00 PM EST Office Visit Sleep Disorders Ctr [facility] [address] [facility] [place] [phone] Magalys Dexter CRNP [address] [facility] [place] [address] 05/01/2024 10:40 AM EDT Office Visit Family [address] [place] [phone] Manisha Villa CRNP [address] [place] [address] [place] [id number] 05/24/2024 10:45 AM EDT Office Visit Urology, [facility] [address] [facility] [place] [address] Torrey Abdi MD [address] [place] [address] 07/20/2024 1:00 PM EDT Nurse Only Ancillary [address] [place] [address] [place], Nurse [address] [place] [address] 07/24/2024 2:20 PM EDT Office Visit Dermatology [address] [place] [address] Bertha Kapoor PA-C [address] [place] [address] [place] [address] 11/27/2024 2:00 PM EDT Office Visit Family Medicine [address] [place] [phone] Anna King MD [address] [place] [address] [place] [id number] Scheduled Orders Name Type Priority Associated Diagnoses Orde r Schedule BASIC METABOLIC PANEL Lab Routine Cor pulmonale, chronic (HCC) Expected: 12/01/2023, Expires: 11/16/2024 Scheduled Procedures Name Priority Associated Diagnoses Date/Ti me COLONOSCOPY FLEXIBLE PROXIMAL DIAGNOSTIC Recall History of colon polyps Health Maintenance Due Date Last Done Comments Colonoscopy 12/17/2020 12/17/2017, 10/2017, 11/09/2014, Additional history exists COVID-19 Vaccine ( season) 2023 03/01/2023, 12/19/2021, 12/10/2020, Additional history exists CKD PHOS USE SMARTSET 32087 01/13/202406/2022, 01/11/2023, 01/10/2023, Additional history exists Albumin/Creatinine Ratio 03/01/2024 024, 02/13/2022, 10/25/2014 GFR 05/15/2024 11/15/2023, 10/10, 07/30/2023, Additional history exists Adult Wellness Visit 07/18/2024 07/19/2023, 01/12/2022, 12/10/2020 Depression Monitoring 07/18/2024 07/19/2023 CKD HGB USE SMARTSET 30262 11/14/202411/14, 11/15/2023, 10/31/2023, Additional history exists TSH [...] as of this encounter Visit Diagnoses Diagnosis Heart failure, diastolic, with acute decompensation (HCC)- Primary Acute on chronic diastolic heart failure Heart failure, diastolic, due to HTN (HCC) Unspecified hypertensive heart disease with heart failure HTN, goal below 140/90 Unspecified essential hypertension Tachy-bipin syndrome (HCC) Sinoatrial node dysfunction Cardiac pacemaker in situ Chronic atrial fibrillation (HCC) Atrial fibrillation Nonrheumatic aortic valve stenosis Aortic valve disorders Cor pulmonale, chronic (HCC) Chronic pulmonary heart disease, unspecified Sinoatrial node dysfunction (HCC) Sinoatrial node dysfunction Renal dysfunction Unspecified disorder of kidney and ureter documented in this encounter Advance Directives * Full Code (Latest Code Status on File) Date Activated Date Inactivated Comments 01/04/2023 6:10 PM 01/15/2023 4:20 PM This order reflects the patients wishes and were consensually agreed upon. Question Answer Comments Discussion of Advance Direct marianna occurred with: Not Discussed due to patient's condition Care Teams Assistant Corporation Counsel Relationship Specialty Start Date End Date Anna King MD [address] [place] [address] [place] [id number] PCP - General Family Medicine 07/24/13 documented as of this encounter"
--- OUTSIDE RECORDS SUMMARY | 2024-01-06 09:56 | External Medical Summary ---
Author Name Unknown Address Unknown Organization [id number]:[facility] - [address] [place] [address] Laboratory Report Ordering Provider Test Date Status HENRY TORRES 11/15/2023 10:08:49 Final Observation Date Value Abnormality Reference (Units ) Status PSA 11/15/2023 10:08:49 1.02 <4.10 (ng/ mL) Final Performing Location [facility] - [address] [place] [address]
--- OUTSIDE RECORDS SUMMARY | 2024-01-06 09:56 | External Medical Summary ---
Author Name Unknown Address Unknown Organization [id number]:[facility] - [address] [facility] [place] [address] Laboratory Report Ordering Provider Test Date Status EILEEN PEACOCK 11/15/2023 10:08:49 Final Observation Date Value Abnormality Reference (Units ) Status SYNC LEUKOCYTES IN BLOOD BY AUTOMATED COUNT 11/15/2023 10:08:49 11.27 Above high normal 4.00-10.80 (K/uL) Final Segs 11/15/2023 10:08:49 72.2 40.0-75.0 (%) Final Lymphs % 11/15/2023 10:08:49 17.0 Below low normal 18.0-42.0 (%) Final Monos 11/15/2023 10:08:49 7.5 1.0-11.0 (%) Final Eosinophils 11/15/2023 10:08:49 2.1 0.0-6.0 (%) Final Basos 11/15/2023 10:08:49 0.5 0.0-2.0 (%) Final Immature Granulocyte, Percent 11/15/2023 10:08:49 0.7 0.0-2.0 (%) Final Absolute Segs 11/15/2023 10:08:49 8.13 Above high normal 1.80-7.70 (K/uL) Final Lymphs, absolute 11/15/2023 10:08:49 1.92 1.00-4.80 (K/ul) Final Monos, Abs 11/15/2023 10:08:49 0.84 0.00-1.10 (K/uL) Final Eos, Abs 11/15/2023 10:08:49 0.24 0.00-0.70 (K/uL) Final Basos, Abs 11/15/2023 10:08:49 0.06 0.00-0.20 (K/uL) Final Immature Granulocytes, Number 11/15/2023 10:08:49 0.08 0.00-0.20 (K/uL) Final Performing Location [facility] [place] - [facility] [place] [address]
--- OUTSIDE RECORDS SUMMARY | 2024-01-06 09:56 | External Medical Summary | Summary of Care ---
Author Name Unknown Organization [facility] Address [address] [place] [address] Phone [phone] Care Team Providers Care Wood Repatcher Name Role Phone Anna King MD Primary Care Provide r Encounter Details Date Type Department Care Team (Late st Contact Info) Description 11/23/2023 Population Health External Data Unspecified Department Allergies Active Allergy Reactions Criticality Noted Date Comments Niacin 09/20/2002 niaspan-flushing Oxycodone-Acetaminophen 08/18/2014 Propoxyphene Napsylate 03/08/2003 rash documented as of this encounter (statuses as of 11/24/2023) Medications Medication Sig Dispensed Refills Start Date [...] as of this encounter (statuses as of 11/24/2023) Active Problems Problem Noted Date Diagnosed Date [...] 02/26/19 21 Atherosclerotic heart diseas e of [place] coronary artery without angina pectoris 02/27/2020 Pancreas [...] as of this encounter (statuses as of 11/24/2023) Resolved Problems Problem Noted Date Diagnosed Date [...] IIA(T1c, N0, M0, PSA: Less than 10, [place] 7) - Signed by Jace Means MD [...] removed 04-08 BENIGN HYPERTENSION 06/09/2000 12/15/19 09 Overview: Modified per HTN Taxonomy. Mixed dyslipidemia 06/09/2000 9 Major depression, single episode 06/09/2000 11/30/2017 Benign prostatic hyperplasia 02/27/2010 Overview: ICD-10 update of inactive term ICD-10 update of inactive term documented as of this encounter (statuses as of 11/24/2023) Immunizations Name Administration Dates Next Due COVID-19 [...] 03/30/2024 2:00 PM EST Office Visit Cardiology [address] [place] [address] Wellington Parrish PAWaylonC [address] [place] [address] 04/04/2024 10:00 AM EST Office Visit Nephrology, [facility] [address] [place] [address] Darwin Barker MD [address] [place] [address] 04/11/2024 2:00 PM EST Office Visit [facility] [place] [address] [place] [phone] Magalys Dexter CRNP [address] [place] [address] 05/01/2024 10:40 AM EDT Office Visit Family Medicine [address] [place] [phone] Manisha Villa CRNP [address] [place] [address] [place] [address] 05/24/2024 10:45 AM EDT Office Visit Urology, [facility] [address] [facility] [place] [address] Torrey Abdi MD [address] [place] [address] 07/20/2024 1:00 PM EDT Nurse Only Ancillary [address] [place] [phone] [place], Nurse Annual [facility]ness [address] [place] [address] [place] [address] 07/24/2024 2:20 PM EDT Office Visit Dermatology [address] [place] [address] Bertha Kapoor PA-C [address] [place] [address] [place] [id number] 11/27/2024 2:00 PM EDT Office Visit Family Medicine [address] [place] [phone] Anna King MD [address] [place] [address] [place] [id number] Scheduled Procedures Name Priority Associated Diagnoses Date/Ti me COLONOSCOPY FLEXIBLE PROXIMAL DIAGNOSTIC Recall History of colon polyps Health Maintenance Due Date Last Done Comments Colonoscopy 12/17/2020 12/17/2017, 10/2017, 11/09/2014, Additional history exists COVID-19 Vaccine ( season) 2023 03/01/2023, 12/19/2021, 12/10/2020, Additional history exists CKD PHOS USE SMARTSET 09134 01/13/2024 12/0 06/2022, 01/11/2023, 01/10/2023, Additional history exists Albumin/Creatinine Ratio 03/01/2024 024, 02/13/2022, 10/25/2014 GFR 05/15/2024 11/15/2023, 10/10, 07/30/2023, Additional history exists Adult Wellness Visit 07/18/2024 07/19/2023, 01/12/2022, 12/10/2020 Depression Monitoring 07/18/2024 07/19/2023 CKD HGB USE SMARTSET 83044 11/14/202411/14, 11/15/2023, 10/31/2023, Additional history exists TSH [...] Discussed due to patient's condition Care Teams Wood Repatcher Relationship Specialty Start Date End Date Anna King MD [address] [place] [address] [place] [phone] PCP - General Family Medicine 07/24/13 documented as of this encounter
--- OUTSIDE RECORDS SUMMARY | 2024-01-06 09:56 | External Medical Summary ---
Author Name Unknown Address Unknown Organization K0G:[facility] - [address] [place] [address] Laboratory Report Ordering Provider Test Date Status ELIER WILKINSON 12/06/2023 10:45:06 Final Observation Date Value Abnormality Reference (Units ) Status BUN 12/06/2023 10:45:06 24 Above high normal 6-20 (mg/dL) Final Creatinine 12/06/2023 10:45:06 1.4 Above high normal 0.6-1.2 (mg/dL) Final Glomerular filtration rate/1.73 sq M.predicted [Volume Rate/Area] in Serum, Plasma or Blood by Creatinine-based formula (CKD-EPI) 12/06/2023 10:45:06 49 Below low normal >=60 (mL/min) Final eGFR is calculated based on the CKD-EPI 2020 equation. Sodium 12/06/2023 10:45:06 138 135-146 (m mol/L) Final Potassium 12/06/2023 10:45:06 4.3 3.5-5.1 (m mol/L) Final Cl 12/06/2023 10:45:06 92 Below low normal 98- 107 (mmol/L) Final CO2 12/06/2023 10:45:06 36 Above high normal 22 -32 (mmol/L) Final Anion gap 12/06/2023 10:45:06 10 7-15 (mmol /L) Final Glucose 12/06/2023 10:45:06 83 70-120 (mg /dL) Final Calcium 12/06/2023 10:45:06 9.3 8.4-10.2 ( mg/dL) Final Performing Location [facility] [address] [place] [address]
--- OUTSIDE RECORDS SUMMARY | 2024-01-06 09:56 | External Medical Summary ---
Author Name Unknown Address Unknown Organization K01:[facility] [place] - [address] [place], [place] [address] [place] [address] Laboratory Report Ordering Provider Test Date Status EILEEN PEACOCK 11/15/2023 10:08:49 Final Observation Date Value Abnormality Reference (Units ) Status WBC, Total 11/15/2023 10:08:49 11.27 Above high normal 4 .00-10.80 (K/uL) Final RBC 11/15/2023 10:08:49 4.50 4.50-5.25 (M/uL) Final Hemoglobin 11/15/2023 10:08:49 13.7 Below low normal 14 .0-16.8 (g/dL) Final Anemia reflex testing trigge rs on a HGB < 12.0 for Females and HGB < 13.0 for Males in accordance with the WHO Anemia Guidelines
Anemia reflex testing triggers on a HGB < 12.0 for Females and HGB < 13.0 for Males in accordance with the WHO Anemia Guidelines HCT 11/15/2023 10:08:49 45.3 40.0-48.4 (%) Final MCV 11/15/2023 10:08:49 100.7 82.0-99.5 (fL) Final MCH 11/15/2023 10:08:49 30.4 27.0-34.0 (pg) Final MCHC 11/15/2023 10:08:49 30.2 32.0-36.0 (g/dL) Final RDW 11/15/2023 10:08:49 15.1 11.5-15.5 (%) Final Platelets 11/15/2023 10:08:49 238 140-400 (K /uL) Final MPV 11/15/2023 10:08:49 11.1 6.6-11.1 ( fL) Final Nucleated erythrocytes/100 leukocytes [Ratio] in Blood by Automated count 11/15/2023 10:08:49 0 <=0 (/100 WBCs) Fi nal Performing Location [facility] [place] - [address] [facility] [address]
--- OUTSIDE RECORDS SUMMARY | 2024-01-06 09:56 | External Medical Summary | Summary of Care ---
Author Name Unknown Organization [facility] Address [address] [place] [address] Phone [phone] Care Team Providers Care Stepdown Nurse Name Role Phone Anna King MD Primary Care Provide r Encounter Details Date Type Department Care Team (Late st Contact Info) Description 11/12/[address] [phone] Anna King MD [address] [place] [address] [place] [phone] Allergies Active Allergy Reactions Criticality Noted Date Comments Niacin 09/20/2002 niaspan-flushing Oxycodone-Acetaminophen 08/18/2014 Propoxyphene Napsylate 03/08/2003 rash documented as of this encounter (statuses as of 11/16/2023) Medications Medication Sig Dispensed Refills Start Date [...] the morning. 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 Pancreas [...] as of this encounter (statuses as of 11/16/2023) Resolved Problems Problem Noted Date Diagnosed Date [...] as of this encounter (statuses as of 11/16/2023) Immunizations Name Administration Dates Next Due COVID-19 mRNA, LNP-s, No Pre serve, 2-Dose Series (Moderna) 12/01/2020,04/17/2020,03/20/2020 COVID-19, MRNA-LNP, 23-24, P F, 30 MCG/0.3 mL, 12 YRS AND ABOVE, IM (Thwapr-Comirnaty) 03/01/2023 COVID-19, mRNA, LNP-s, PF, B ooster, [...] encounter Miscellaneous Notes * Telephone Encounter - July Brice PHARM Tech - 11/12/2023 8:20 AM EDT Patient calling in regarding a medication last prescribed by PCP office, transferring caller to Medication Refill Line for further assistance. Thank you, July Brice Machine Grinder [facility] 11/12/2023,8:20 AM documented in this encounter Plan of Treatment Upcoming Encounters Date Type Department Care Team (Late st Contact Info) Description 11/17/2023 11:30 AM EDT Office Visit Cardiology, [facility] [address] [place] [address] Wellington Parrish PA-C 132 [place] [address] 03/30/2024 2:00 PM EST Office Visit Cardiology [address] [place] [address] Wellington Parrish PA-C [address] [place] [address] 04/04/2024 10:00 AM EST Office Visit Nephrology, [facility] [address] [place] [address] Darwin Barker MD [address] [place] [address] 04/11/2024 2:00 PM EST Office Visit Sleep Disorders Ctr [facility] [address] [place] [phone] Magalys Dexter CRNP [address] [place] [address] 05/01/2024 10:40 AM EDT Office Visit Family Medicine [address] [place] [phone] Manisha Villa [address] [place] [address] 05/24/2024 10:45 AM EDT Office Visit Urology, [facility] [address] [place] [address] Torrey Abdi MD [address] [place] [address] 07/20/2024 1:00 PM EDT Nurse Only Ancillary [address] [place] [address] Candice, Nurse [address] [place] [address] 07/24/2024 2:20 PM EDT Office Visit Dermatology [address] [place] [address] Bertha Kapoor PA-C [address] [place] [address] [place] [address] 11/27/2024 2:00 PM EDT Office Visit Family Medicine [address] [place] [phone] Anna King MD [address] [place] [address] [place] [address] Scheduled Procedures Name Priority Associated Diagnoses Date/Ti me COLONOSCOPY FLEXIBLE PROXIMAL DIAGNOSTIC Recall History of colon polyps Health Maintenance Due Date Last Done Comments Colonoscopy 12/17/2020 12/17/2017, 10/2017, 11/09/2014, Additional history exists COVID-19 Vaccine ( season) 2023 03/01/2023, 12/19/2021, 12/10/2020, Additional history exists CKD PHOS USE SMARTSET 53183 01/13/202406/2022, 01/11/2023, 01/10/2023, Additional history exists Albumin/Creatinine Ratio 03/01/2024 024, 02/13/2022, 10/25/2014 GFR 05/15/2024 11/15/2023, 10/10, 07/30/2023, Additional history exists Adult Wellness Visit 07/18/2024 07/19/2023, 01/12/2022, 12/10/2020 Depression Monitoring 07/18/2024 07/19/2023 CKD HGB USE SMARTSET 38287 11/14/202411/14, 11/15/2023, 10/31/2023, Additional history exists TSH [...] Discussed due to patient's condition Care Teams Stepdown Nurse Relationship Specialty Start Date End Date Anna King MD [address] [place] [address] [place] [id number] PCP - General Family Medicine 07/24/13 documented as of this encounter
--- OUTSIDE RECORDS SUMMARY | 2024-01-06 09:56 | External Medical Summary ---
Author Name Unknown Address Unknown Organization K01:[facility] [place] [address] [facility] [place] [address] Laboratory Report Ordering Provider Test Date Status MADONNAROGELIOEILEEN 11/15/2023 10:08:49 Final Observation Date Value Abnormality Reference (Units ) Status Triglyceride 11/15/2023 10:08:49 148 <=174 ( mg/dL) Final Triglyceride Reference Range s (mg/dL):
<150 Acceptable
150-174 Borderline high
175-499 High
>=500 Very high Cholesterol 11/15/2023 10:08:49 112 <200 (mg /dL) Final Total Cholesterol Reference Ranges (mg/dL):
<200 Desirable
200-239 Borderline high
>=240 High HDL 11/15/2023 10:08:49 33 Below low normal >39 (mg/dL) Final HDL Cholesterol Reference Ra nges (mg/dL):
>=60 High (Desirable)
<50 Low (Undesirable) For Females
<40 Low (Undesirable) For Males NON-HDL CHOLESTEROL 11/15/2023 10:08:49 79 <=159 (mg/dL) Final Non-HDL Cholesterol Referenc e Range (mg/dL):
<100 Target level for high risk ASCVD patient
<130 Optimal for general population
130-159 Near optimal for general population
160-189 Borderline High
190-219 High
>=220 Very High LDL, (calculated) 11/15/2023 10:08:49 49 <= 129 (mg/dL) Final LDL Cholesterol Reference Ra nges (mg/dL):
<70 Target level for high risk ASCVD patient
<100 Optimal for general population
100-129 Near optimal for general population
130-159 Borderline high
160-189 High
>=190 Very high Performing Location [facility] [place] [address] [facility] [address]
--- OUTSIDE RECORDS SUMMARY | 2024-01-06 09:56 | External Medical Summary | Summary of Care ---
Author Name Unknown Organization [facility] Address [address] [place] [address] Phone [phone] Care Team Providers Care Director Of Community Life Name Role Phone Anna King MD Primary Care Provide r Encounter Details Date Type Department Care Team (Late st Contact Info) Description 12/09/2023 Result Scan Unspecified Department <No scans attached> Allergies Active Allergy Reactions Criticality Noted Date Comments Niacin 09/20/2002 niaspan-flushing Oxycodone-Acetaminophen 08/18/2014 Propoxyphene Napsylate 03/08/2003 rash documented as of this encounter (statuses as of 12/14/2023) Medications Medication Sig Dispensed Refills Start Date [...] as of this encounter (statuses as of 12/14/2023) Active Problems Problem Noted Date Diagnosed Date [...] 02/26/19 21 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 BPH without obstruction/lower urinary tract symp toms 03/08/2003 ARTHROPATHY NOS-PELVIS 02/14/2003 Hip joint replacement status 01/02/2003 documented as of this encounter (statuses as of 12/14/2023) Resolved Problems Problem Noted Date Diagnosed Date [...] IIA(T1c, N0, M0, PSA: Less than 10, [place] 7) - Signed by Jace Means MD on 05/17/2017 Asthma, mild persistent 02/28/201011/09 Asthma with severity to be determined 08/01/2009 02/28/2010 Overview: Per Asthma Taxonomy ICD-10 update of inactive term Polymyalgia rheumatica 06/14/200910/25 Dyslipidemia, goal to be determined 01/15/2009 02/28/2010 Overview: Per Lipid Taxonomy. Dyslipidemia, goal LDL below 160 12/14/2008 01/15/2009 Overview: Per Lipid Taxonomy. ADVANCE DIRECTIVE INFORMATION 09/22/2004 12/13/2023 Overview: Yes, Patient instructed to provide copy [...] as of this encounter (statuses as of 12/14/2023) Immunizations Name Administration Dates Next Due COVID-19 [...] 8:40 AM EST Office Visit Pulmonary Medicine, [facility] [address] [place] [address] Dusty [facility]oussef [facility] [address] [facility] [address] 01/25/2024 1:40 PM EST Office Visit Family Medicine [address] [place] [phone] Anna King MD [address] [place] [address] [place] [address] 03/30/2024 2:00 PM EST Office Visit Cardiology [address] [place] [address] Wellington Parrish PA-C [address] [place] [address] 04/04/2024 10:00 AM EST Office Visit Nephrology, [facility] [address] [place] [address] Darwin Barker MD [address] [place] [address] 04/11/2024 2:00 PM EST Office Visit Sleep Disorders Ctr [facility] 132 [facility] [place] [phone] Magalys Dexter CRNP 132 [facility] [place] [address] 05/01/2024 10:40 AM EDT Office Visit Family Medicine [address] [place] [phone] Manisha Villa CRNP [address] [place] [address] [place] [address] 05/24/2024 10:45 AM EDT Office Visit Urology, [facility] 132 [facility] [place] [address] Torrey Abdi MD [address] [place] [address] 07/20/2024 1:00 PM EDT Nurse Only Ancillary [address] [place] [address] [place], Nurse Annual [address] [place] [address] 07/24/2024 2:20 PM EDT Office Visit Dermatology [address] [place] [address] Bertha Kapoor PA-C [address] [place] [address] [place] [address] 11/27/2024 2:00 PM EDT Office Visit Family Medicine [address] [place] [phone] Anna King MD [address] [place] [address] [place] [address] Scheduled Procedures Name Priority Associated Diagnoses Date/Ti me COLONOSCOPY FLEXIBLE PROXIMAL DIAGNOSTIC Recall History of colon polyps Health Maintenance Due Date Last Done Comments Colonoscopy 12/17/2020 12/17/2017, 10/2017, 11/09/2014, Additional history exists COVID-19 Vaccine ( season) 2023 03/01/2023, 12/19/2021, 12/10/2020, Additional history exists CKD PHOS USE SMARTSET 58789 01/13/202406/2022, 01/11/2023, 01/10/2023, Additional history exists Albumin/Creatinine Ratio 03/01/2024 024, 02/13/2022, 10/25/2014 GFR 06/05/2024 12/06/2023, 08/2023, 10/31/2023, Additional history exists Adult Wellness Visit 07/18/2024 07/19/2023, 01/12/2022, 12/10/2020 CKD HGB USE SMARTSET 09438 11/14/202411/14, 11/15/2023, 10/31/2023, Additional history exists TSH [...] Procedure Name Priority Date/Time Associated Diagnosis Comments OUTSIDE LAB RESULTS 12/09/2023 documented in this encounter Results * OUTSIDE LAB RESULTS (12/09/2023) 12/09/2023 No Physician Data Unknown LABORATORY documented in this encounter Advance Directives * Full Code (Latest Code Status on File) Date Activated Date Inactivated Comments 01/04/2023 6:10 PM 01/15/2023 4:20 PM This order reflects the patients wishes and were consensually agreed upon. Question Answer Comments Discussion of Advance Direct marianna occurred with: Not Discussed due to patient's condition Care Teams Director Of Community Life Relationship Specialty Start Date End Date Anna King MD [address] [place] [address] [place] [address] PCP - General Family Medicine 07/24/13 documented as of this encounter
--- OUTSIDE RECORDS SUMMARY | 2024-01-06 09:56 | External Medical Summary | Summary of Care ---
Author Name Unknown Organization [facility] Address [address] [facility] [address] Phone [phone] Care Team Providers Care Email Marketing Executive Name Role Phone Anna King MD Primary Care Provide r Reason for Visit * Reason Onset Date Comments Test Results 12/07/2023 Encounter Details Date Type Department Care Team (Late st Contact Info) Description 12/07/2023 Telephone Cardiology, [facility] [address] [place] [phone] Wellington Parrish PA-C [address] [place] [address] Test Results Allergies Active Allergy Reactions Criticality Noted Date Comments Niacin 09/20/2002 niaspan-flushing Oxycodone-Acetaminophen 08/18/2014 Propoxyphene Napsylate 03/08/2003 rash documented as of this encounter (statuses as of 12/07/2023) Medications Medication Sig Dispensed Refills Start Date [...] as of this encounter (statuses as of 12/07/2023) Active Problems Problem Noted Date Diagnosed Date [...] 02/26/19 21 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 hospital[facility] source of income? (Household - for [...] encounter Miscellaneous Notes * Telephone Encounter - Lilia Beaver CMA - 12/07/2023 3:46 PM EDT Letter mailed * Telephone Encounter - Lilia Beaver CMA - 12/07/2023 3:45 PM EDT ----- Message from Wellington Parrish sent at 12/06/2023 5:28 PM EDT ----- OK/stable! documented in this encounter Plan of Treatment Upcoming Encounters Date Type Department Care Team (Late st Contact Info) Description 03/30/2024 2:00 PM EST Office Visit Cardiology [address] [place] [phone] Wellington Parrish PA-C [address] [place] [address] 04/04/2024 10:00 AM EST Office Visit Nephrology, [facility] [address] [place] [address] Darwin Barker MD [address] [place] [address] 04/11/2024 2:00 PM EST Office Visit Sleep Disorders Ctr [facility] [address] [place] [phone] Magalys Dexter CRNP [address] [place] [address] 05/01/2024 10:40 AM EDT Office Visit Family Medicine [address] [place] [phone] Manisha Villa CRNP [address] [place] [address] [place] [address] 05/24/2024 10:45 AM EDT Office Visit Urology, [facility] [address] [place] [address] Torrey Abdi MD [address] [place] [address] 07/20/2024 1:00 PM EDT Nurse Only Ancillary [address] [place] [address] [place], Nurse [address] [place] [address] 07/24/2024 2:20 PM EDT Office Visit Dermatology [address] [place] [address] Bertha Kapoor PA-C [address] [place] [address] [place] [address] 11/27/2024 2:00 PM EDT Office Visit Family Medicine [address] [place] [phone] Anna King MD [address] [place] [address] [place] [id number] Scheduled Procedures Name Priority Associated Diagnoses Date/Ti me COLONOSCOPY FLEXIBLE PROXIMAL DIAGNOSTIC Recall History of colon polyps Health Maintenance Due Date Last Done Comments Colonoscopy 12/17/2020 12/17/2017, 10/2017, 11/09/2014, Additional history exists COVID-19 Vaccine ( season) 2023 03/01/2023, 12/19/2021, 12/10/2020, Additional history exists CKD PHOS USE SMARTSET 34999 01/13/202406/2022, 01/11/2023, 01/10/2023, Additional history exists Albumin/Creatinine Ratio 03/01/2024 024, 02/13/2022, 10/25/2014 GFR 06/05/2024 12/06/2023, 08/2023, 10/31/2023, Additional history exists Adult Wellness Visit 07/18/2024 07/19/2023, 01/12/2022, 12/10/2020 Depression Monitoring 07/18/2024 07/19/2023 CKD HGB USE SMARTSET 72193 11/14/202411/14, 11/15/2023, 10/31/2023, Additional history exists TSH [...] Discussed due to patient's condition Care Teams Email Marketing Executive Relationship Specialty Start Date End Date Anna King MD [address] [place] [address] [place] [address] PCP - General Family Medicine 07/24/13 documented as of this encounter
--- OUTSIDE RECORDS SUMMARY | 2024-01-06 09:56 | External Medical Summary | Summary of Care ---
Author Name Unknown Organization [facility] Address [address] [place] [address] Phone [phone] Care Team Providers Care Reverberatory Furnace Supervisor Name Role Phone Anna King MD Primary Care Provide r Reason for Visit * Reason Comments Outpatient Testing Encounter Details Date Type Department Care Team (Late st Contact Info) Description 11/15/2023 11:10 AM EDT Laboratory Laboratory, [facility] [address] [facility] [place] [phone] [facility] [address] Hypertensive heart and kidney disease with chronic diastolic congestive heart failure and stage 3b chronic kidney disease (HCC); Dyslipidemia, goal LDL below 100; Acquired hypothyroidism; Prostate cancer (HCC) Allergies Active Allergy Reactions Criticality Noted [...] 02/26/19 21 Atherosclerotic heart diseas e of [place] coronary artery without angina pectoris 02/27/2020 [...] No 07/19/2023 Does the household have a [facility] specialty hospital[facility] source of income? (Household - for [...] 11:30 AM EDT Office Visit Cardiology, [facility] 132 [place] [address] Wellington Parrish PA-C [address] [place] [address] 03/30/2024 2:00 PM EST Office Visit Cardiology [address] [place] [address] Wellington Parrish PA-C [address] [place] [address] 04/04/2024 10:00 AM EST Office Visit Nephrology, [facility] [address] [place] [address] Darwin Barker MD [address] [place] [address] 04/11/2024 2:00 PM EST Office [facility] [place] [phone] Magalys Dexter CRNP 132 [facility] [place] [address] 05/01/2024 10:40 AM EDT Office Visit Family Medicine [address] [place] [phone] Manisha Villa CRNP [address] [place] [address] [place] [address] 05/24/2024 10:45 AM EDT Office Visit Urology, [facility] [place] [address] Torrey Abdi MD [address] [place] [address] 07/20/2024 1:00 PM EDT Nurse Only Ancillary [address] [place] [address] Candice, Nurse [address] [place] [address] 07/24/2024 2:20 PM EDT Office Visit Dermatology [address] [place] [address] Bertha Kapoor PA-C [address] [place] [address] [place] [address] 11/27/2024 2:00 PM EDT Office Visit Family Medicine [address] [place] [phone] Anna King MD [address] [place] [address] [place] [address] Pending Results Name Type Priority Associated Diagnoses Date /Time COMPREHENSIVE METABOLIC PANEL Lab Routine Hypertensive heart and kidney disease with chronic diastolic congestive heart failure and stage 3b chronic kidney disease (HCC) Dyslipidemia, goal LDL below 100 11/15/2023 10:08 AM EDT LIPID PANEL WITH DIRECT LDL IF TG IS HIGH Lab Routine Dyslipidemia, goal LDL below 100 11/15/2023 10:08 AM EDT TSH WITH FREE T4 IF INDICATED Lab Routine Acquired hypothyroidism 11/15/2023 10:08 AM EDT CBC WITH WBC DIFFERENTIAL AND ANEMIA REFLEX WORKUP Lab Routine Hypertensive heart and kidney disease with chronic diastolic congestive heart failure and stage 3b chronic kidney disease (HCC) 11/15/2023 10:08 AM EDT PSA Lab Routine Prostate cancer (HCC) 11/15/2023 10:08 AM EDT ANEMIA CBC Lab Routine Hypertensive heart and kidney disease with chronic diastolic congestive heart failure and stage 3b chronic kidney disease (HCC) 11/15/2023 10:08 AM EDT DIFFERENTIAL, AUTOMATED Lab Routine Hypertensive heart and kidney disease with chronic diastolic congestive heart failure and stage 3b chronic kidney disease (HCC) 11/15/2023 10:08 AM EDT ANEMIA REFLEX CHEMISTRY HOLD Lab Routine Hypertensive heart and kidney disease with chronic diastolic congestive heart failure and stage 3b chronic kidney disease (HCC) 11/15/2023 10:08 AM EDT Scheduled Procedures Name Priority Associated Diagnoses Date/Ti me COLONOSCOPY FLEXIBLE PROXIMAL DIAGNOSTIC Recall History of colon polyps Health Maintenance Due Date Last Done Comments Colonoscopy 12/17/2020 12/17/2017, 10/2017, 11/09/2014, Additional history exists COVID-19 Vaccine ( season) 2023 03/01/2023, 12/19/2021, 12/10/2020, Additional history exists CKD PHOS USE SMARTSET 67314 01/13/20243, 01/11/2023, 01/10/2023, Additional history exists Albumin/Creatinine Ratio 03/01/2024 024, 02/13/2022, 10/25/2014 GFR 04/29/2024 10/31/2023, 07/10, 05/28/2023, Additional history exists TSH 05/10/2024 05/11/2023, 04/2022, 01/09/2023, Additional history exists Adult Wellness Visit 07/18/2024 07/19/2023, 01/12/2022, 12/10/2020 Depression Monitoring 07/18/2024 07/19/2023 CKD HGB USE SMARTSET 55728 10/30/202410/30, 03/01/2023, 03/01/2023, Additional history exists DTap/Tdap [...] Discussed due to patient's condition Care Teams Reverberatory Furnace Supervisor Relationship Specialty Start Date End Date Anna King MD [address] [place] [address] [place] [address] PCP - General Family Medicine 07/24/13 documented as of this encounter
--- OUTSIDE RECORDS SUMMARY | 2024-01-06 09:57 | External Medical Summary | Summary of Care ---
Author Name Unknown Organization [facility] Address [address] [place] [address] Phone [phone] Care Team Providers Care Camera Control Operator Name Role Phone Anna King MD Primary Care Provide r Encounter Details Date Type Department Care Team (Late st Contact Info) Description 10/28/2023 Population Health External Data Unspecified Department Allergies Active Allergy Reactions Criticality Noted Date Comments Niacin 09/20/2002 niaspan-flushing Oxycodone-Acetaminophen 08/18/2014 Propoxyphene Napsylate 03/08/2003 rash documented as of this encounter (statuses as of 11/01/2023) Medications Medication Sig Dispensed Refills Start Date [...] by Urology, depending on his PSA. Active Levothyroxine Sodium 75 MCG Oral Tablet (Levoxyl)Indications: Acquired hypothyroidism TAKE 1 TABLET BY MOUTH EVERY DAY (AT LEAST 30 MINUTES PRIOR TO BREAKFAST OR OTHER MEDICATIONS) 90 Tablet 2 09/25/2022 Active Albuterol Sulfate (2.5 MG/3ML) 0.083% Inhalation [...] THE MORNING 90 Capsule 3 05/26/2023 Active Torsemide 20 MG Oral Tablet (Demadex)Indications: Heart failure, diastolic, due to HTN (HCC) Take 2 Tablets by mouth in the morning. 180 Tablet 1 05/27/2023 Active cycloSPORINE 0.05 % Ophthalmic Emulsion (Restasis) [...] before bedtime. 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 Pancreas [...] as of this encounter (statuses as of 11/01/2023) Resolved Problems Problem Noted Date Diagnosed Date [...] as of this encounter (statuses as of 11/01/2023) Immunizations Name Administration Dates Next Due COVID-19 mRNA, LNP-s, No Pre serve, 2-Dose Series (Moderna) 12/01/2020,04/17/2020,03/20/2020 COVID-19, MRNA-LNP, 23-24, P F, 30 MCG/0.3 mL, 12 YRS AND ABOVE, IM ([employer]-Comirnaty) 03/01/2023 COVID-19, mRNA, LNP-s, PF, B ooster, 100mcg/0.5mg (Moderna) 12/10/2020 Covid-19, Mrna, Lnp-s, Pf, B ivalent, 50 Mcg, IM, 12 yrs and above (Moderna) 12/19/2021 Hepatitis B, 20+ yrs 11/11/2011,06/10/2011,05/12 Pneumococcal Conjugate Vacc, 13 Valent (Prevnar) 04/17/2014 Pneumococcal Polysaccharide PPV23 (Pneumovax) 06/13/2008 Season Influenza, Quad, PF, Adjuvanted, 65+ Yrs, IM (FLUAD) 10/26/2019 Seasonal Influenza, PF, 6 M & above, IM , (FluLaval or Fluzone) 11/05/2018,11/30/2017,11/30/2016 Seasonal Influenza, Quadriva lent Hd (Fluzone Hd) 10/20/2022,10/20/2021,10/24/2020 Seasonal Influenza, Quadriva lent, No Preserve, IM 11/07/2015 Seasonal Influenza, Trivalen t, (IIV3), with Preserv, (Fluzone) 10/25/2014,10/17/2013,11/08/2012,11/11,11/25/2010,01/21/2010,03/22/2009 (Deferred: Patient Refused) TD, Preservative Free [...] 11/15/2023 9:30 AM EDT Office Visit Urology, [facility] [address] [address] Torrey Abdi MD [address] [address] 03/30/2024 2:00 PM EST Office Visit Cardiology [address] [place] [address] Wellington Parrish PA-C [address] [address] 04/04/2024 10:00 AM EST Office Visit Nephrology, [facility] [address] [place] [address] [address] Darwin Barker MD [address] [place] [address] 04/11/2024 2:00 PM EST Office Visit Sleep Disorders Ctr [facility] [address] [place] [phone] Magalys Dexter CRNP [address] [place] [address] 05/01/2024 10:40 AM EDT Office Visit Family [address] [place] [phone] Manisha Villa CRNP [address] [place] [address] [place] [address] 07/20/2024 1:00 PM EDT Nurse Only Ancillary [address] [place] [address] [place], Nurse Annual Wellness [address] [place] [address] [place] [address] 07/24/2024 2:20 PM EDT Office Visit Dermatology [address] [place] [address] Bertha Kapoor PA-C [address] [place] [address] [place] [address] 11/27/2024 2:00 PM EDT Office Visit Family [address] [place] [phone] Anna King MD [address] [place] [address] [place] [address] Scheduled Procedures Name Priority Associated Diagnoses Date/Ti me COLONOSCOPY FLEXIBLE PROXIMAL DIAGNOSTIC Recall History of colon polyps Health Maintenance Due Date Last Done Comments Colonoscopy 12/17/2020 12/17/2017, 10/2017, 11/09/2014, Additional history exists COVID-19 Vaccine ( season) 2023 03/01/2023, 12/19/2021, 12/10/2020, Additional history exists CKD PHOS USE SMARTSET 25161 01/13/202406/2022, 01/11/2023, 01/10/2023, Additional history exists GFR 01/29/2024 07/30/2023, 05/09, 05/20/2023, Additional history exists Albumin/Creatinine Ratio 03/01/2024 024, 02/13/2022, 10/25/2014 CKD HGB USE SMARTSET 40061 03/01/202403/01, 03/01/2023, 01/15/2023, Additional history exists TSH 05/10/2024 05/11/2023, 04/2022, 01/09/2023, Additional history exists Adult Wellness Visit 07/18/2024 07/19/2023, 01/12/2022, 12/10/2020 Depression Monitoring 07/18/2024 07/19/2023 DTap/Tdap Vaccines (2 - Td or Tdap) [...] Discussed due to patient's condition Care Teams Camera Control Operator Relationship Specialty Start Date End Date Anna King MD [address] [place] [address] [place] [id number] PCP - General Family Medicine 07/24/13 documented as of this encounter
--- OUTSIDE RECORDS SUMMARY | 2024-01-06 09:57 | External Medical Summary | Summary of Care ---
Author Name Unknown Organization [facility] Address [address] [place] [address] Phone [phone] Care Team Providers Care Forge Press Operator Name Role Phone Anna King MD Primary Care Provide r Encounter Details Date Type Department Care Team (Late st Contact Info) Description 10/31/2023 Result Scan Unspecified Department <No scans attached> Allergies Active Allergy Reactions Criticality Noted Date Comments Niacin 09/20/2002 niaspan-flushing Oxycodone-Acetaminophen 08/18/2014 Propoxyphene Napsylate 03/08/2003 rash documented as of this encounter (statuses as of 11/02/2023) Medications Medication Sig Dispensed Refills Start Date [...] as of this encounter (statuses as of 11/02/2023) Active Problems Problem Noted Date Diagnosed Date [...] 02/26/19 21 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 Pancreas [...] as of this encounter (statuses as of 11/02/2023) Resolved Problems Problem Noted Date Diagnosed Date [...] as of this encounter (statuses as of 11/02/2023) Immunizations Name Administration Dates Next Due COVID-19 mRNA, LNP-s, No Pre serve, 2-Dose Series (Moderna) 12/01/2020,04/17/2020,03/20/2020 COVID-19, MRNA-LNP, 23-24, P F, 30 MCG/0.3 mL, 12 YRS AND ABOVE, IM ([employer]-Comirnaty) 03/01/2023 COVID-19, mRNA, LNP-s, PF, B ooster, 100mcg/0.5mg (Moderna) 12/10/2020 Covid-19, Mrna, Lnp-s, Pf, B ivalent, 50 Mcg, IM, 12 yrs and above (Moderna) 12/19/2021 Hepatitis B, 20+ yrs 11/11/2011,06/10/2011,05/12 Pneumococcal Conjugate Vacc, 13 Valent (Prevnar) 04/17/2014 Pneumococcal Polysaccharide PPV23 (Pneumovax) 06/13/2008 Season Influenza, Quad, PF, Adjuvanted, 65+ Yrs, IM (FLUAD) 10/26/2019 Seasonal Influenza, High Dos e, Trivalent, PF, [...] 11/15/2023 9:30 AM EDT Office Visit Urology, [facility] [address] [address] Torrey Abdi MD [address] [address] 03/30/2024 2:00 PM EST Office Visit Cardiology [address] [place] [address] Wellington Parrish PA-C [address] [place] [address] [address] 04/04/2024 10:00 AM EST Office Visit Nephrology, [facility] [address] [place] [address] Darwin Barker MD [address] [place] [address] 04/11/2024 2:00 PM EST Office Visit Sleep Disorders Ctr [facility] [address] [place] [phone] Magalys Dexter CRNP [address] [place] [address] 05/01/2024 10:40 AM EDT Office Visit Family [address] [place] [phone] Manisha Villa CRNP [address] [place] [address] [place] [address] 07/20/2024 1:00 PM EDT Nurse Only Ancillary [address] [place] [address] Candice, Nurse Annual [address] [place] [address] 07/24/2024 2:20 PM EDT Office Visit Dermatology [address] [place] [address] Bertha Kapoor PA-C [address] [place] [address] [place] [address] 11/27/2024 2:00 PM EDT Office Visit Family [address] [place] [phone] Anna King MD [address] [place] [address] [place] [address] Scheduled Procedures Name Priority Associated Diagnoses Date/Ti me COLONOSCOPY FLEXIBLE PROXIMAL DIAGNOSTIC Recall History of colon polyps Health Maintenance Due Date Last Done Comments Colonoscopy 12/17/2020 12/17/2017, 10/2017, 11/09/2014, Additional history exists COVID-19 Vaccine ( season) 2023 03/01/2023, 12/19/2021, 12/10/2020, Additional history exists CKD PHOS USE SMARTSET 76931 01/13/20240 06/2022, 01/11/2023, 01/10/2023, Additional history exists Albumin/Creatinine Ratio 03/01/2024 024, 02/13/2022, 10/25/2014 CKD HGB USE SMARTSET 41151 03/01/202410/30, 03/01/2023, 03/01/2023, Additional history exists GFR 04/29/2024 10/31/2023, 07/10, 05/28/2023, Additional history [...] Procedure Name Priority Date/Time Associated Diagnosis Comments EKG SCANNED RESULT 10/31/2023 documented in this encounter Results * EKG SCANNED RESULT (10/31/2023) 10/31/2023 No Physician Data Unknown EKG documented in this encounter Advance Directives * Full Code (Latest Code Status on File) Date Activated Date Inactivated Comments 01/04/2023 6:10 PM 01/15/2023 4:20 PM This order reflects the patients wishes and were consensually agreed upon. Question Answer Comments Discussion of Advance Direct marianna occurred with: Not Discussed due to patient's condition Care Teams Forge Press Operator Relationship Specialty Start Date End Date Anna King MD [address] [place] [address] [place] [phone] PCP - General Family Medicine 07/24/13 documented as of this encounter
--- OUTSIDE RECORDS SUMMARY | 2024-01-06 09:57 | External Medical Summary | Summary of Care ---
Author Name Unknown Organization [facility] Address [address] [place] [address] Phone [phone] Care Team Providers Care Helminthology Teacher Name Role Phone Anna King MD Primary Care Provide r Encounter Details Date Type Department Care Team (Late st Contact Info) Description 11/06/2023 Result Scan Unspecified Department Janiya Whitman, DO [address] [facility] [address] <No scans attached> Allergies Active Allergy Reactions Criticality Noted Date Comments Niacin 09/20/2002 niaspan-flushing Oxycodone-Acetaminophen 08/18/2014 Propoxyphene Napsylate 03/08/2003 rash documented as of this encounter (statuses as of 11/06/2023) Medications Medication Sig Dispensed Refills Start Date [...] as of this encounter (statuses as of 11/06/2023) Active Problems Problem Noted Date Diagnosed Date [...] 02/26/19 21 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 Pancreas [...] as of this encounter (statuses as of 11/06/2023) Resolved Problems Problem Noted Date Diagnosed Date [...] as of this encounter (statuses as of 11/06/2023) Immunizations Name Administration Dates Next Due COVID-19 [...] 11/15/2023 9:30 AM EDT Office Visit Urology, [facility] [address] [address] Torrey Abdi MD [address] [address] 11/17/2023 11:30 AM EDT Office Visit Cardiology, [facility] [address] [address] Wellington Parrish PA-C [address] [place] [address] [address] 03/30/2024 2:00 PM EST Office Visit Cardiology [address] [place] [address] Wellington Parrish PA-C [address] [place] [address] 04/04/2024 10:00 AM EST Office Visit Nephrology, [facility] [address] [place] [address] Darwin Barker MD [address] [place] [address] 04/11/2024 2:00 PM EST Office Visit Sleep Disorders Ctr [facility] [address] [place] [phone] Magalys Dexter CRNP [address] [place] [address] 05/01/2024 10:40 AM EDT Office Visit Family Medicine [address] [place] [phone] Manisha Villa CRNP [address] [place] [address] [place] [address] 07/20/2024 1:00 PM EDT Nurse Only Ancillary [address] [place] [address] [place], Nurse Annual [address] [place] [address] 07/24/2024 2:20 PM EDT Office Visit Dermatology [address] [place] [address] Bertha Kapoor PA-C [address] [place] [address] [place] [address] 11/27/2024 2:00 PM EDT Office Visit Family Medicine [address] [place] [phone] Anna King MD [address] [place] [address] [place] [address] Scheduled Procedures Name Priority Associated Diagnoses Date/Ti me COLONOSCOPY FLEXIBLE PROXIMAL DIAGNOSTIC Recall History of colon polyps Health Maintenance Due Date Last Done Comments Colonoscopy 12/17/2020 12/17/2017, 10/2017, 11/09/2014, Additional history exists COVID-19 Vaccine ( season) 2023 03/01/2023, 12/19/2021, 12/10/2020, Additional history exists CKD PHOS USE SMARTSET 91798 01/13/202406/2022, 01/11/2023, 01/10/2023, Additional history exists Albumin/Creatinine Ratio 03/01/2024 024, 02/13/2022, 10/25/2014 GFR 04/29/2024 10/31/2023, 07/10, 05/28/2023, Additional history exists TSH 05/10/2024 05/11/2023, 04/2022, 01/09/2023, Additional history exists Adult Wellness Visit 07/18/2024 07/19/2023, 01/12/2022, 12/10/2020 Depression Monitoring 07/18/2024 07/19/2023 CKD HGB USE SMARTSET 67331 10/30/202410/30, 03/01/2023, 03/01/2023, Additional history exists DTap/Tdap [...] Date/Time Associated Diagnosis Comments CARDIOLOGY SCANNED RESULT 11/06/2023 documented in this encounter Results * CARDIOLOGY SCANNED RESULT (11/06/2023) 11/06/2023 Janiya Whitman DO OTHER documented in this encounter Advance Directives * Full Code (Latest Code Status on File) Date Activated Date Inactivated Comments 01/04/2023 6:10 PM 01/15/2023 4:20 PM This order reflects the patients wishes and were consensually agreed upon. Question Answer Comments Discussion of Advance Direct marianna occurred with: Not Discussed due to patient's condition Care Teams Helminthology Teacher Relationship Specialty Start Date End Date Anna King MD [address] [place] [address] [place] [address] PCP - General Family Medicine 07/24/13 documented as of this encounter
--- OUTSIDE RECORDS SUMMARY | 2024-01-06 09:57 | External Medical Summary ---
Author Name Unknown Address Unknown Organization K01:LABORATORY [facility] [place] - [address] [place] [address] Laboratory Report Ordering Provider Test Date Status EILEEN PEACOCK 11/15/2023 10:08:49 Final Observation Date Value Abnormality Reference (Units ) Status TSH 11/15/2023 10:08:49 4.77 Above high normal 0. 27-4.20 (uIU/mL) Final Performing Location LABORATORY [facility] [place] - [address] [place] [address]
--- OUTSIDE RECORDS SUMMARY | 2024-01-06 09:57 | External Medical Summary ---
Author Name Unknown Address Unknown Organization K01:LABORATORY [facility] - [address] [place] [address] Laboratory Report Ordering Provider Test Date Status EILEEN PEACOCK 11/15/2023 10:08:49 Final Observation Date Value Abnormality Reference (Units ) Status T4, Free 11/15/2023 10:08:49 1.2 0.9-1.7 (n g/dL) Final Performing Location LABORATORY [facility] - [address] [place] [address]
--- OUTSIDE RECORDS SUMMARY | 2024-01-06 09:57 | External Medical Summary | Summary of Care ---
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 Mixed dyslipidemia 06/09/2000 Major depression, single episode 06/09/2000 11/30/2017 Benign [...] 11/15/2023 9:30 AM EDT Office Visit Urology, [facility] [address] [address] Torrey Abdi MD [address] [address] 03/30/2024 2:00 PM EST Office Visit Cardiology [address] [place] [address] Wellington Parrish PA-C [address] [place] [address] [address] 04/04/2024 10:00 AM EST Office Visit Nephrology, [facility] [address] [place] [address] Darwin Barker MD [address] [place] [address] 04/11/2024 2:00 PM EST Office Visit Sleep Disorders Ctr [facility] [address] [place] [phone] Magalys Dexter CRNP [address] [place] [address] 05/01/2024 10:40 AM EDT Office Visit Family [address] [place] [phone] Manisha Villa CRNP [address] [place] [address] [place] [address] 07/20/2024 1:00 PM EDT Nurse Only Ancillary [address] [place] [address] [place], Nurse Annual [address] [place] [address] 07/24/2024 2:20 PM EDT Office Visit Dermatology [address] [place] [address] Bertha Kapoor PA-C [address] [place] [address] [place] [address] 11/27/2024 2:00 PM EDT Office Visit Family Medicine [address] [place] [phone] Anna King MD [address] [place] [address] [place] [address] Scheduled Procedures Name Priority Associated Diagnoses Date/Ti me COLONOSCOPY FLEXIBLE PROXIMAL DIAGNOSTIC Recall History of colon polyps Health Maintenance Due Date Last Done Comments Colonoscopy 12/17/2020 12/17/2017, 10/2017, 11/09/2014, Additional history exists COVID-19 Vaccine ( season) 2023 03/01/2023, 12/19/2021, 12/10/2020, Additional history exists CKD PHOS USE SMARTSET 27669 01/13/202406/2022, 01/11/2023, 01/10/2023, Additional history exists Albumin/Creatinine Ratio 03/01/2024 024, 02/13/2022, 10/25/2014 CKD HGB USE SMARTSET 43306 03/01/202410/30, 03/01/2023, 03/01/2023, Additional history exists GFR [...] Priority Date/Time Associated Diagnosis Comments CHEMISTRY-OUTSIDE Routine 10/31/2023 documented in this encounter Results * CHEMISTRY-OUTSIDE (10/31/2023) Not all results display below - see scan for full detail OUTSIDE LAB (SEE SCANNED REPORT) Comment:SCAN INCLUDES: PH CL RFLD ED LABS - CBCD, TROPONIN I HS, LACTIC ACID LVL CREATININE OUTSIDE L AB (SEE SCANNED REPORT) EGFR OUTSIDE LA B (SEE SCANNED REPORT) POTASSIUM OUTSIDE LA B (SEE SCANNED REPORT) GLUCOSE OUTSIDE LA B (SEE SCANNED REPORT) HOURS FASTING OUTSID E LAB (SEE SCANNED REPORT) TRIGLYCERIDES-OUT SIDE LAB OUTSIDE LAB (SEE SCANNED REPORT) CHOLESTEROL-OUTSI DE LAB OUTSIDE LAB (SEE SCANNED REPORT) HDL-OUTSIDE LAB OUTS CHE LAB (SEE SCANNED REPORT) CHOL/HDL RATIO-OUTSIDE LAB OUTSIDE LA B (SEE SCANNED REPORT) LDL (CALCULATED)-OUTS CHE LAB OUTSIDE LAB (SEE SCANNED REPORT) LDL (DIRECT MEASURE)-OUTSIDE LAB OUTSIDE LAB (SEE SCANNED REPORT) HEMOGLOBIN, [id number] LAB OUTSIDE LAB (SEE SCANNED REPORT) PHOSPHORUS-OUTSID E LAB OUTSIDE LAB (SEE SCANNED REPORT) PTH-OUTSIDE LAB OUTS CHE LAB (SEE SCANNED REPORT) MICROALBUMIN RATIO-OUTSIDE LAB OUTSIDE LA B (SEE SCANNED REPORT) PROTEIN, UA-OUTSIDE LAB OUTSIDE LAB (SEE SCANNED REPORT) HGB 15.1 13.5 - 18.0 GM/DL OUTSIDE LAB (SEE SCANNED REPORT) 10/31/2023 History Per Patient LABORATORY OUTSIDE LAB (SEE SCANNED REPORT) documented in this encounter Advance Directives * Full Code (Latest Code Status on File) Date Activated Date Inactivated Comments 01/04/2023 6:10 PM 01/15/2023 4:20 PM This order reflects the patients wishes and were consensually agreed upon. Question Answer Comments Discussion of Advance Direct marianna occurred with: Not Discussed due to patient's condition Care Teams Casing Splitter Relationship Specialty Start Date End Date Anna King MD [address] [place] [address] [place] [phone] PCP - General Family Medicine 07/24/13 documented as of this encounter
--- OUTSIDE RECORDS SUMMARY | 2024-01-06 09:57 | External Medical Summary | Summary of Care ---
Author Name Unknown Organization [facility] Address [address] [place] [address] Phone [phone] Care Team Providers Care Hematology Nurse Educator Name Role Phone Anna King MD Primary Care Provide r Encounter Details Date Type Department Care Team (Late st Contact Info) Description 11/02/2023 Orders Only Family Medicine [address] [phone] Anna King MD [address] [place] [address] [place] [phone] Allergies Active Allergy Reactions Criticality Noted Date [...] 02/26/19 21 Atherosclerotic heart diseas e of [place] coronary [...] 11/15/2023 9:30 AM EDT Office Visit Urology, [facility] [address] [address] Torrey Abdi MD [address] [address] [address] 03/30/2024 2:00 PM EST Office Visit Cardiology [address] [place] [address] Wellington Parrish PA-C [address] [place] [address] 04/04/2024 10:00 AM EST Office Visit Nephrology, [facility] [address] [place] [address] Darwin Barker MD [address] [place] [address] 04/11/2024 2:00 PM EST Office Visit Sleep Disorders Ctr [facility] [address] [place] [phone] Magalys Dexter CRNP [address] [place] [address] 05/01/2024 10:40 AM EDT Office Visit Family [address] [place] [phone] Manisha Villa CRNP [address] [place] [address] [place] [address] 07/20/2024 1:00 PM EDT Nurse Only Ancillary [address] [place] [address] [place], Nurse Annual [address] [place] [address] 07/24/2024 2:20 PM EDT Office Visit Dermatology [address] [place] [address] Bertha Kapoor PA-C [address] [place] [address] [place] [address] 11/27/2024 2:00 PM EDT Office Visit Family Medicine [address] [place] [phone] Anna King MD [address] [place] [address] [place] [address] Scheduled Procedures Name Priority Associated Diagnoses Date/Ti me COLONOSCOPY FLEXIBLE PROXIMAL DIAGNOSTIC Recall History of colon polyps Health Maintenance Due Date Last Done Comments Colonoscopy 12/17/2020 12/17/2017, 10/2017, 11/09/2014, Additional history exists COVID-19 Vaccine ( season) 2023 03/01/2023, 12/19/2021, 12/10/2020, Additional history exists CKD PHOS USE SMARTSET 41999 01/13/202406/2022, 01/11/2023, 01/10/2023, Additional history exists Albumin/Creatinine Ratio 03/01/2024 024, 02/13/2022, 10/25/2014 CKD HGB USE SMARTSET 29529 03/01/202403/01, 03/01/2023, 01/15/2023, Additional history exists GFR 04/29/2024 10/31/2023, 07/10, [...] 10/31/2023 documented in this encounter Results * (ABNORMAL) CHEMISTRY-OUTSIDE (10/31/2023) Not all results display below - see scan for full detail OUTSIDE LAB (SEE SCANNED REPORT) Comment:SCAN INCLUDES: PH CL RFLD ED LABS - CMP, MG, PRO BNP, TROPONIN I HS CREATININE 1.75(A) 0.70 - 1.30 MG/DL OUTSIDE LAB (SEE SCANNED REPORT) EGFR 38(A) >=60 ML/MIN/1.7 3M2 OUTSIDE LAB (SEE SCANNED REPORT) POTASSIUM 4.1 3.5 - 5.1 MMOL/L OUTSIDE LAB (SEE SCANNED REPORT) GLUCOSE 109 70 - 110 MG/DL OUTSIDE LAB (SEE [...] LAB OUTSIDE LAB (SEE SCANNED REPORT) HEMOGLOBIN, [id number] LAB OUTSIDE LAB (SEE SCANNED REPORT) PHOSPHORUS-OUTSID E LAB OUTSIDE LAB (SEE SCANNED REPORT) PTH-OUTSIDE LAB OUTS CHE LAB (SEE SCANNED REPORT) MICROALBUMIN RATIO-OUTSIDE LAB OUTSIDE LA B (SEE SCANNED REPORT) PROTEIN, UA-OUTSIDE LAB OUTSIDE LAB (SEE SCANNED REPORT) HGB OUTSIDE LA B (SEE SCANNED REPORT) 10/31/2023 History Per Patient [...] Discussed due to patient's condition Care Teams Hematology Nurse Educator Relationship Specialty Start Date End Date Anna King MD [address] [place] [address] [place] [phone] PCP - General Family Medicine 07/24/13 documented as of this encounter
--- OUTSIDE RECORDS SUMMARY | 2024-01-06 09:57 | External Medical Summary | Summary of Care ---
Author Name Unknown Organization [facility] Address [address] [place] [address] Phone [phone] Care Team Providers Care Model Home Sales Greeter Name Role Phone Anna King MD Primary Care Provide r Reason for Visit * Reason Comments eRx-Medication Refill Encounter Details Date Type Department Care Team (Late st Contact Info) Description 11/11/2023 Refill Family Medicine [address] [phone] Anna King MD [address] [place] [address] [place] [id number] Acquired hypothyroidism Allergies Active Allergy Reactions Criticality Noted Date Comments Niacin 09/20/2002 niaspan-flushing Oxycodone-Acetaminophen 08/18/2014 Propoxyphene Napsylate 03/08/2003 rash documented as of this encounter (statuses as of 11/12/2023) Medications Medication Sig Dispensed Refills Start Date [...] 180 MG Oral Capsule Extended Release 24 HourIndications:Lamine gstanding persistent atrial fibrillation (HCC) TAKE 1 CAPSULE BY MOUTH EVERY DAY IN THE MORNING 90 Capsule 3 03/01/2023 Active ProAir HFA 108 (90 Base) MCG/ACT Inhalation Aerosol SolutionIndications :Restrictive lung disease,Bronchiecta sis without complication (HCC),Interstitial pulmonary disease (HCC) 2 doses inhaled every 4-6 hours as needed for shortness of breath, cough or wheeze 18 g 5 03/17/2023 Active Atorvastatin Calcium 20 MG Oral Tablet (Lipitor)Indication s:Dyslipidemia, goal LDL below 100 Take 1 Tablet by mouth at bedtime. 90 Tablet 3 03/25/2023 Active Melatonin 5 MG Oral Capsule Take 1 Capsule by mouth at bedtime. Active Fluticasone-Salmete rol 250-50 MCG/ACT Inhalation Aerosol Powder Breath Activated (Wixela Inhub)Indications:M ild persistent asthma without complication INHALE 1 PUFF BY MOUTH TWICE A DAY 180 Each 1 05/12/2023 Active Spironolactone 25 MG Oral Tablet (Aldactone)Indicati ons:Renal dysfunction,HTN, goal below 140/90 Take 0.5 Tablets [...] 10/27/2023 Active Torsemide 20 MG Oral Tablet (Demadex)Indication s:Heart failure, diastolic, due to HTN (HCC) Take 2 Tablets by mouth in the morning. 180 Tablet 1 11/03/2023 Active Levothyroxine Sodium 75 MCG Oral Tablet (Levoxyl)Indication s:Acquired hypothyroidism TAKE 1 TABLET BY MOUTH EVERY DAY (AT LEAST 30 MINUTES PRIOR TO BREAKFAST OR OTHER MEDICATIONS) 90 Tablet 2 11/12/2023 Active Levothyroxine Sodium 75 MCG Oral Tablet (Levoxyl)Indication s:Acquired hypothyroidism TAKE 1 TABLET BY MOUTH EVERY DAY (AT LEAST 30 MINUTES PRIOR TO BREAKFAST OR OTHER MEDICATIONS) 90 Tablet 2 09/25/2022 11/12/19 24 Discontinued documented as of this encounter (statuses as of 11/12/2023) Active Problems Problem Noted Date Diagnosed Date [...] chronic 02/26/19 Atherosclerotic heart diseas e of [place] coronary artery without angina pectoris 02/27/2020 Pancreas [...] as of this encounter (statuses as of 11/12/2023) Resolved Problems Problem Noted Date Diagnosed Date [...] as of this encounter (statuses as of 11/12/2023) Immunizations Name Administration Dates Next Due COVID-19 mRNA, LNP-s, No Pre serve, 2-Dose Series (Moderna) 12/01/2020,04/17/2020,03/20/2020 COVID-19, MRNA-LNP, 23-24, P F, 30 MCG/0.3 mL, 12 YRS AND ABOVE, IM (PFIZER-Comirnaty) 03/01/2023 COVID-19, mRNA, LNP-s, PF, B ooster, 100mcg/0.5mg (Moderna) 12/10/2020 Covid-19, Mrna, Lnp-s, Pf, B ivalent, 50 Mcg, IM, 12 yrs and above (Moderna) 12/19/2021 Hepatitis B, 20+ yrs 11/11/2011,06/10/2011,04/04 /2012 Pneumococcal Conjugate Vacc, 13 Valent (Prevnar) 04/17/2014 [...] 07/19/2023 Does the household have a re lar source of income? (Household - for ages [...] encounter Miscellaneous Notes * Telephone Encounter - Dottie Mckeon [facility] - 11/12/2023 9:55 AM EDTSigned Prescriptions: Disp Refills Levothyroxine Sodium 75 MCG Oral Tablet (L*90 Tab*2 Sig: TAKE 1 TABLET BY MOUTH EVERY DAY (AT LEAST 30 MINUTES PRIOR TO BREAKFAST OR OTHER MEDICATIONS)Authorizing Provider: ANNA KINGOrdermanuela User: DOTTIE MCKEONRefused Prescriptions: Disp Refills Metoprolol Tartrate 25 MG Oral Tablet (Lop*180 Ta*1 Sig: TAKE 1 TABLET BY MOUTH IN THE MORNING AND BEFORE BEDTIMERefused By: DOTTIE MCKEON for Refusal: Refill Not AppropriateReason for Refusal Comment: pt changed to Metoprolol ER 50mg * Telephone Encounter - Dottie Mckeon [facility] - 11/12/2023 9:55 AM EDTSigned Prescriptions: Disp Refills Levothyroxine Sodium 75 MCG Oral Tablet (L*90 Tab*2 Sig: TAKE 1 TABLET BY MOUTH EVERY DAY (AT LEAST 30 MINUTES PRIOR TO BREAKFAST OR OTHER MEDICATIONS)Authorizing Provider: ANNA KING User: DOTTIE MCKEONRefused Prescriptions: Disp Refills Metoprolol Tartrate 25 MG Oral Tablet (Lop*180 Ta*1 Sig: TAKE 1 TABLET BY MOUTH IN THE MORNING AND BEFORE BEDTIMERefused By: DOTTIE MCKEON for Refusal: Refill Not AppropriateReason for Refusal Comment: pt changed to Metoprolol ER 50mg * Telephone Encounter - Gloria Ricardo CPhT - 11/12/2023 8:20 AM EDT Did you pend patient's preferred pharmacy and medication before forwarding?yes Pharmacy: [id number] [id number] [facility] Pending Prescriptions: Disp Refills Levothyroxine Sodium 75 MCG Oral Tablet (*90 Tab*2 Sig: TAKE 1 TABLET BY MOUTH EVERY DAY (AT LEAST 30 MINUTES PRIOR TO BREAKFAST OR OTHER MEDICATIONS) Last Visit: 2023 (in office), Visit date not found (telemedicine) Next Visit: 05/01/2024 If no future appointments scheduled, and last appointment is greater than a year ago, please schedule patient for a follow-up appointment Last date the medication was ordered: 09/25/22 Is this request for a controlled substance?No Urine Drug Screen:No results found. However, due to the size of the patient record, not all encounters were searched. Please check Results Review for a complete set of results. Patient Phone Numbers Labs: Lab Results Component Value Date/Time CREAT 1.75 (A) 10/31/2023 12:00 AM CREAT 1.3 (H) 03/04/2020 10:29 AM POTASSIUM 4.1 10/31/2023 12:00 AM POTASSIUM 4.3 03/04/2020 10:29 AM TSH 4.40 (H) 05/11/2023 03:11 PM TSH 3.190 03/10/2021 12:00 AM TSH 2.31 10/26/2019 10:36 AM LDL 80 06/04/2022 07:52 AM LDL 74 10/26/2019 10:36 AM LDL NOT APPLICABLE 10/26/2019 10:36 AM ALT 14 01/15/2023 07:05 AM ALT 32 10/26/2019 10:36 AM documented in this encounter Plan of Treatment Upcoming Encounters Date Type Department Care Team (Late st Contact Info) Description 11/15/2023 9:30 AM EDT Office Visit Urology, [facility] [address] [place] [address] Torrey Abdi MD [address] [place] [phone] 11/17/2023 11:30 AM EDT Office Visit Cardiology, [facility] [address] [place] [address] Wellington Parrish PA-C [address] [place] [address] 03/30/2024 2:00 PM EST Office Visit Cardiology [address] [place] [address] Wellington Parrish PA-C [address] [place] [address] 04/04/2024 10:00 AM EST Office Visit Nephrology, [facility] [address] [place] [address] Darwin Barker MD [address] [place] [address] 04/11/2024 2:00 PM EST Office Visit Sleep Disorders Ctr [facility] [address] [place] [phone] Magalys Dexter CRNP [address] [place] [address] 05/01/2024 10:40 AM EDT Office Visit Family Medicine [address] [place] [phone] Manisha Villa CRNP [address] [place] [address] [place] [address] 07/20/2024 1:00 PM EDT Nurse Only Ancillary [address] [place] [address] [place], Nurse Annual Wellness [address] [place] [address] [place] [address] 07/24/2024 2:20 PM EDT Office Visit Dermatology [address] [place] [address] Bertha Kapoor PA-C [address] [place] [address] [place] [address] 11/27/2024 2:00 PM EDT Office Visit Family Medicine [address] [place] [phone] Anna King MD [address] [place] [address] [place] [id number] Scheduled Procedures Name Priority Associated Diagnoses Date/Ti me COLONOSCOPY FLEXIBLE PROXIMAL DIAGNOSTIC Recall History of colon polyps Health Maintenance Due Date Last Done Comments Colonoscopy 12/17/2020 12/17/2017, 10/2017, 11/09/2014, Additional history exists COVID-19 Vaccine ( season) 2023 03/01/2023, 12/19/2021, 12/10/2020, Additional history exists CKD PHOS USE SMARTSET 49678 01/13/202406/2022, 01/11/2023, 01/10/2023, Additional history exists Albumin/Creatinine Ratio 03/01/2024 024, 02/13/2022, 10/25/2014 GFR 04/29/2024 10/31/2023, 07/10, 05/28/2023, Additional history exists TSH 05/10/2024 05/11/2023, 04/2022, 01/09/2023, Additional history exists Adult Wellness Visit 07/18/2024 07/19/2023, 01/12/2022, 12/10/2020 Depression Monitoring 07/18/2024 07/19/2023 CKD HGB USE SMARTSET 21267 10/30/202410/30, 03/01/2023, 03/01/2023, Additional history exists DTap/Tdap [...] as of this encounter Visit Diagnoses Diagnosis Acquired hypothyroidism Unspecified hypothyroidism documented in this encounter Advance Directives * Full Code (Latest Code Status on File) Date Activated Date Inactivated Comments 01/04/2023 6:10 PM 01/15/2023 4:20 PM This order reflects the patients wishes and were consensually agreed upon. Question Answer Comments Discussion of Advance Direct marianna occurred with: Not Discussed due to patient's condition Care Teams Model Home Sales Greeter Relationship Specialty Start Date End Date Anna King MD [address] [place] [address] [place] [phone] PCP - General Family Medicine 07/24/13 documented as of this encounter
--- OUTSIDE RECORDS SUMMARY | 2024-01-06 09:57 | External Medical Summary | Summary of Care ---
Author Name Unknown Organization [facility] Address [address] [facility] [place] [address] Phone [phone] Care Team Providers Care Tree Worker Name Role Phone Anna King MD Primary Care Provide r Reason for Visit * Reason Onset Date Comments Information 11/02/2023 Encounter Details Date Type Department Care Team (Late st Contact Info) Description 11/02/2023 Telephone Cardiology, [facility] [address] [place] [address] Wellington Parrish PA-C [address] [place] [phone] Information Allergies Active Allergy Reactions Criticality Noted Date Comments Niacin 09/20/2002 niaspan-flushing Oxycodone-Acetaminophen 08/18/2014 Propoxyphene Napsylate 03/08/2003 rash documented as of this encounter (statuses as of 11/05/2023) Medications Medication Sig Dispensed Refills Start Date [...] 180 MG Oral Capsule Extended Release 24 HourIndications:Long standing persistent atrial fibrillation (HCC) TAKE 1 CAPSULE BY MOUTH EVERY DAY IN THE MORNING 90 Capsule 3 03/01/2023 Active ProAir HFA 108 (90 Base) MCG/ACT Inhalation Aerosol SolutionIndications: Restrictive lung disease,Bronchiectas is without complication (HCC),Interstitial pulmonary disease (HCC) 2 doses inhaled every 4-6 hours as needed for shortness of breath, cough or wheeze 18 g 5 03/17/2023 Active Atorvastatin Calcium 20 MG Oral Tablet (Lipitor)Indications :Dyslipidemia, goal LDL below 100 Take 1 Tablet by mouth at bedtime. 90 Tablet 3 03/25/2023 Active Melatonin 5 MG Oral Capsule Take 1 Capsule by mouth at bedtime. Active Fluticasone-Salmeter ol 250-50 MCG/ACT Inhalation Aerosol Powder Breath Activated (Wixela Inhub)Indications:Mi ld persistent asthma without complication INHALE 1 PUFF BY MOUTH TWICE A DAY 180 Each 1 05/12/2023 Active Spironolactone 25 MG Oral Tablet (Aldactone)Indicatio ns:Renal dysfunction,HTN, goal below 140/90 Take 0.5 Tablets [...] 10/27/2023 Active Torsemide 20 MG Oral Tablet (Demadex)Indications :Heart failure, diastolic, due to HTN (HCC) Take 2 Tablets by mouth in the morning. 180 Tablet 1 11/03/2023 Active Torsemide 20 MG Oral Tablet (Demadex)Indications :Heart failure, diastolic, due to HTN (HCC) Take 2 Tablets by mouth in the morning. 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 She is ok with the date and time, and the hold has been removed. RETURN CARDIOLOGY at 11:30 AM (30 min)Arrive by 11:15 AM Friday November 17, 2023 Appointment Provider:Wellington Parrish PA-C in CARDIOLOGY [facility] * Telephone Encounter - Kaylin Riley RN - 11/05/2023 3:17 PM EDT Conversion complete. Please schedule for 60 minutes and remove hold. * Telephone Encounter - Shailesh [facility] LPN - 11/03/2023 11:28 AM EDT Called patient and spoke to patient's spouse. Informed of Wellington's message. Medication pended. * Telephone Encounter - Piyush Batres OSA - 11/03/2023 8:15 AM EDT Kaylin, renu we open this as requested by Wellington, thank you. * Telephone Encounter - Wellington Parrish PA-C - 11/02/2023 2:54 PM EDT Patient evaluated at [facility], presenting with chest tightness, shortness of breath, and cough. Documentation notes significant improvement in presenting symptoms following nebulizertreatment. Patient prescribed doxycycline for possible pneumonia. As best I can tell patient was advised to hold torsemide (40 mg/day) and utilize furosemide 40 mg/day Noting complaints and weight gain, recommend stopping furosemide and utilizing torsemide 40 mg twice per day x 3 days then resume torsemide 40 mg/daily thereafter Ok to utilize 11/16 appointment time from my standpoint Wellington Parrish PA-C Department of Cardiology * Telephone Encounter - Piyush Batres OSA - 11/02/2023 9:59 AM EDT Kaylin, this patient see [facility] do have an 1130 slot, the clos rel on 11/16, if Wellington would be ok to open this. Please advise, thank you both. * Telephone Encounter - Francoise Crocker LPN - 11/02/2023 9:47 AM EDT calling to report pt was at [facility] d/t "rattling" in his lungs, SOB, difficulty breathing Work up in ED - labs, EKG, breathing treatments and iv lasix. Gained 3lb overnight last night but breathing is better today Prescribed lasix 40mg for next 4 days, told to hold torsemide and resume after 4 days. Did not take lasix until this morning, took torsemide last night. Also given doxycycline for suspected PNX, "white spot on lung" per documented in this encounter Plan of Treatment Upcoming Encounters Date Type Department Care Team (Late st Contact Info) Description 11/15/2023 9:30 AM EDT Office Visit Urology, [facility] [address] [place] [address] [address] Torrey Abdi MD [address] [place] [address] 11/17/2023 11:30 AM EDT Office Visit Cardiology, [facility] [address] [place] [address] Wellington Parrish PA-C [address] [place] [address] 03/30/2024 2:00 PM EST Office Visit Cardiology [address] [place] [address] Wellington Parrish PA-C [address] [place] [address] 04/04/2024 10:00 AM EST Office Visit Nephrology, [facility] [address] [place] [address] Darwin Barker MD [address] [place] [address] 04/11/2024 2:00 PM EST Office Visit Sleep Disorders Ctr [facility] [address] [place] [phone] Magalys Dexter CRNP [address] [place] [address] 05/01/2024 10:40 AM EDT Office Visit Family Medicine [address] [place] [phone] Manisha Villa CRNP [address] [place] [address] [place] [phone] 07/20/2024 1:00 PM EDT Nurse Only Ancillary [address] [place] [address] [place], Nurse Annual [address] [place] [address] 07/24/2024 2:20 PM EDT Office Visit Dermatology [address] [place] [address] Bertha Kapoor PA-C [address] [place] [address] [place] [address] 11/27/2024 2:00 PM EDT Office Visit Family Medicine [address] [place] [phone] Anna King MD [address] [place] [address] [place] [address] Scheduled Procedures Name Priority Associated Diagnoses Date/Ti me COLONOSCOPY FLEXIBLE PROXIMAL DIAGNOSTIC Recall History of colon polyps Health Maintenance Due Date Last Done Comments Colonoscopy 12/17/2020 12/17/2017, 10/2017, 11/09/2014, Additional history exists COVID-19 Vaccine ( season) 2023 03/01/2023, 12/19/2021, 12/10/2020, Additional history exists CKD PHOS USE SMARTSET 90753 01/13/202406/2022, 01/11/2023, 01/10/2023, Additional history exists Albumin/Creatinine Ratio 03/01/2024 024, 02/13/2022, 10/25/2014 GFR 04/29/2024 10/31/2023, 07/10, 05/28/2023, Additional history exists TSH 05/10/2024 05/11/2023, 04/2022, 01/09/2023, Additional history exists Adult Wellness Visit 07/18/2024 07/19/2023, 01/12/2022, 12/10/2020 Depression Monitoring 07/18/2024 07/19/2023 CKD HGB USE SMARTSET 20377 10/30/202410/30, 03/01/2023, 03/01/2023, Additional history exists DTap/Tdap [...] encounter Visit Diagnoses Diagnosis Heart failure, diastolic, due to HTN (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 Question Answer Comments Discussion of Advance Direct marianna occurred with: Not Discussed due to patient's condition Care Teams Tree Worker Relationship Specialty Start Date End Date Anna King MD [address] [place] [address] [place] [phone] PCP - General Family Medicine 07/24/13 documented as of this encounter
--- OUTSIDE RECORDS SUMMARY | 2024-01-06 09:57 | External Medical Summary | Summary of Care ---
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 Pancreas [...] 11/15/2023 9:30 AM EDT Office Visit Urology, [facility] [address] [place] [address] Torrey Abdi MD [address] [place] [address] 03/30/2024 2:00 PM EST Office Visit Cardiology [address] [place] [address] Wellington Parrish PA-C [address] [place] [address] 04/04/2024 10:00 AM EST Office Visit Nephrology, [facility] [address] [place] [address] Darwin Barker MD [address] [place] [address] 04/11/2024 2:00 PM EST Office Visit Sleep Disorders Ctr [facility] [address] [place] [phone] Magalys Dexter CRNP [address] [place] [address] 05/01/2024 10:40 AM EDT Office Visit Family [address] [place] [phone] Manisha Villa CRNP [address] [place] [address] [place] [address] 07/20/2024 1:00 PM EDT Nurse Only Ancillary [address] [place] [address] [place], Nurse Annual [address] [place] [address] 07/24/2024 2:20 PM EDT Office Visit Dermatology [address] [place] [address] Bertha Kapoor PA-C [address] [place] [address] [place] [address] 11/27/2024 2:00 PM EDT Office Visit Family Medicine [address] [place] [phone] Anna King MD [address] [place] [address] [place] [address] Scheduled Procedures Name Priority Associated Diagnoses Date/Ti me COLONOSCOPY FLEXIBLE PROXIMAL DIAGNOSTIC Recall History of colon polyps Health Maintenance Due Date Last Done Comments Colonoscopy 12/17/2020 12/17/2017, 10/2017, 11/09/2014, Additional history exists COVID-19 Vaccine ( season) 2023 03/01/2023, 12/19/2021, 12/10/2020, Additional history exists CKD PHOS USE SMARTSET 34275 01/13/202406/2022, 01/11/2023, 01/10/2023, Additional history exists Albumin/Creatinine Ratio 03/01/2024 024, 02/13/2022, 10/25/2014 CKD HGB USE SMARTSET 37043 03/01/202403/01, 03/01/2023, 01/15/2023, Additional history exists GFR [...] Procedure Name Priority Date/Time Associated Diagnosis Comments XR CHEST 2 VIEWS Routine 10/31/2023 documented in this encounter Results * XR CHEST 2 VIEWS (10/31/2023) Anatomical Region Laterality Modality Chest Other 10/31/2023 History Per Patient RADIOLOGY (RAD GENER AL) documented in this encounter Advance Directives * Full Code (Latest Code Status on File) Date Activated Date Inactivated Comments 01/04/2023 6:10 PM 01/15/2023 4:20 PM This order reflects the patients wishes and were consensually agreed upon. Question Answer Comments Discussion of Advance Direct marianna occurred with: Not Discussed due to patient's condition Care Teams Emergency Medical Tech Relationship Specialty Start Date End Date Anna King MD [address] [place] [address] [place] [address] PCP - General Family Medicine 07/24/13 documented as of this encounter
--- OUTSIDE RECORDS SUMMARY | 2024-01-06 09:57 | External Medical Summary ---
Author Name Unknown Address Unknown Organization [facility] [address] [place] [address] Laboratory Report Ordering Provider Test Date Status EILEEN PEACOCK 11/15/2023 10:08:49 Final Observation Date Value Abnormality Reference (Units ) Status BUN 11/15/2023 10:08:49 28 Above high normal 6-20 (mg/dL) Final Creatinine 11/15/2023 10:08:49 1.6 Above high normal 0.6-1.2 (mg/dL) Final Glomerular filtration rate/1.73 sq M.predicted [Volume Rate/Area] in Serum, Plasma or Blood by Creatinine-based formula (CKD-EPI) 11/15/2023 10:08:49 44 Below low normal >=60 (mL/min) Final eGFR is calculated based on the CKD-EPI 2020 equation. Sodium 11/15/2023 10:08:49 141 135-146 (m mol/L) Final Potassium 11/15/2023 10:08:49 4.9 3.5-5.1 (m mol/L) Final Cl 11/15/2023 10:08:49 97 Below low normal 98- 107 (mmol/L) Final CO2 11/15/2023 10:08:49 35 Above high normal 22 -32 (mmol/L) Final Anion gap 11/15/2023 10:08:49 9 7-15 (mmol /L) Final Glucose 11/15/2023 10:08:49 97 70-120 (mg /dL) Final Albumin 11/15/2023 10:08:49 4.2 3.8-5.0 (g /dL) Final AST (Aspartate aminotransferase) 11/15/2023 10:08:49 30 10-50 (U/L) Fin al Alk Phos 11/15/2023 10:08:49 101 35-130 (U/ L) Final Bilirubin, Total 11/15/2023 10:08:49 0.5 <=1 .2 (mg/dL) Final Calcium 11/15/2023 10:08:49 9.8 8.4-10.2 ( mg/dL) Final Protein 11/15/2023 10:08:49 7.2 6.0-8.3 (g /dL) Final ALT (Alanine aminotransferase) 11/15/2023 10:08:49 33 10-50 (U/L) John patel Performing Location [facility] [address] [facility] [address]
--- OUTSIDE RECORDS SUMMARY | 2024-01-06 09:58 | External Medical Summary | Summary of Care ---
Author Name Unknown Organization [facility] Address [address] [place] [facility] [place] [address] Phone [phone] Care Team Providers Care International Freight Forwarder Name Role Phone Anna King MD Primary Care Provide r Reason for Visit * Reason Comments eRx-Medication Refill Encounter Details Date Type Department Care Team (Late st Contact Info) Description 09/10/2023 Refill Family Medicine [address] [place] [address] Anna King MD [address] [place] [address] [place] [id number] Restless legs syndrome Allergies Active Allergy Reactions Criticality Noted Date Comments Niacin 09/20/2002 niaspan-flushing Oxycodone-Acetaminophen 08/18/2014 Propoxyphene Napsylate 03/08/2003 rash documented as of this encounter (statuses as of 09/10/2023) Medications Medication Sig Dispensed Refills Start Date [...] BREAKFAST OR OTHER MEDICATIONS) 90 Tablet 2 3 Active Metoprolol Tartrate 25 MG Oral Tablet (Lopressor) Take 1 Tablet by mouth in the morning and 1 Tablet before bedtime. 180 Tablet 1 3 Active Albuterol Sulfate (2.5 MG/3ML) 0.083% Inhalation Nebulization Solution (Proventil) Inhale 1 Vial via nebulizer every 4 hours as needed for Wheezing or Shortness of Breath. 360 mL 11 3 Active Additional Information Patient not taking.Reported on 08/04/2023 Acetaminophen 325 MG Oral Tablet (Tylenol) Take [...] 4 Active Spironolactone 25 MG Oral Tablet (Aldactone)Indicati ons:Renal dysfunction,HTN, goal below 140/90 Take 0.5 Tablets by mouth every other day. 4 Active Tamsulosin HCl 0.4 MG Oral Capsule (Flomax) TAKE 1 CAPSULE BY MOUTH EVERY DAY IN THE MORNING 90 Capsule 3 4 Active Torsemide 20 MG Oral Tablet (Demadex)Indication s:Heart failure, diastolic, due to HTN (HCC) Take 2 Tablets by mouth in the morning. 180 Tablet 1 4 Active cycloSPORINE 0.05 % Ophthalmic Emulsion [...] mL before bedtime. 180 mL 4 Active dilTIAZem HCl 30 MG Oral Tablet (Cardizem) Take 1 Tablet by mouth in the morning and 1 Tablet at noon and 1 Tablet before bedtime. 270 Tablet 2 4 Active rOPINIRole HCl 1 MG Oral Tablet (Requip)Indications :Restless legs syndrome TAKE 1 TABLET BY MOUTH AT BEDTIME. WITH FOOD. FOR RESTLESS LEGS 90 Tablet 1 4 Active rOPINIRole HCl 1 MG Oral TabletIndications:R estless legs syndrome Take 1 Tablet by mouth at bedtime. With food. 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 03/30/2019 Asthma, mild persistent 03/30/2019 Undescended left testicle 09/23/2018 TIBURCIO (generalized anxiety disorder) 06/13/2018 History of colon polyps 05/10/2018 History of prostate cancer 05/10/2018 RUDY treated with BiPAP 04/21/2018 Chronic [...] as of this encounter (statuses as of 09/10/2023) Resolved Problems Problem Noted Date Diagnosed Date [...] IIA(T1c, N0, M0, PSA: Less than 10, [place] 7) - Signed by Jace Means MD [...] as of this encounter (statuses as of 09/10/2023) Immunizations Name Administration Dates Next Due COVID-19 [...] Miscellaneous Notes * Telephone Encounter - Dottie Cobb DO - 09/10/2023 3:51 PM EDTSigned Prescriptions: Disp Refills rOPINIRole HCl 1 MG Oral Tablet (Requip) 90 Tab*1 Sig: TAKE 1 TABLET BY MOUTH AT BEDTIME. WITH FOOD. FOR RESTLESS LEGS Authorizing Provider: DOTTIE COBB * Telephone Encounter - Meri East LPN - 09/10/2023 11:05 AM EDTPending Prescriptions: Disp Refills rOPINIRole HCl 1 MG Oral Tablet [Pharmacy *90 Tab*1 Sig: Take 1 Tablet by mouth at bedtime. With food. For restless legs * Telephone Encounter - Meri East LPN - 09/10/2023 11:04 AM EDT Did you pend patient's preferred pharmacy and medication before forwarding? Pharmacy: [facility][id number] [id number] [facility] Pending Prescriptions: Disp Refills rOPINIRole HCl 1 MG Oral Tablet (Requip) *90 Tab*1 Sig: TAKE 1 TABLET BY MOUTH AT BEDTIME. WITH FOOD. FOR RESTLESS LEGS Last Visit: 08/04/2023 (in office), Visit date not found (telemedicine) Next Visit: 2023 If no future appointments scheduled, and last appointment is greater than a year ago, please schedule patient for a follow-up appointment Last date the medication was ordered: Is this request for a controlled substance? Urine Drug Screen:No results found. However, due to the size of the patient record, not all encounters were searched. Please check Results Review for a complete set of results. Patient Phone Numbers Labs: Lab Results Component Value Date/Time CREAT 1.6 (H) 07/30/2023 10:36 AM CREAT 1.41 (A) 07/16/2021 12:00 AM CREAT 1.3 (H) 03/04/2020 10:29 AM POTASSIUM 4.7 07/30/2023 10:36 AM POTASSIUM 4.5 07/16/2021 12:00 AM POTASSIUM 4.3 03/04/2020 10:29 AM TSH 4.40 (H) 05/11/2023 03:11 PM TSH 3.190 03/10/2021 12:00 AM TSH 2.31 10/26/2019 10:36 AM LDLCALC 80 06/04/2022 07:52 AM LDLCALC 74 10/26/2019 10:36 AM LDLDIRECT NOT APPLICABLE 10/26/2019 10:36 AM LDLDIRECT 102 03/03/2011 08:30 AM ALT 14 01/15/2023 07:05 AM ALT 32 10/26/2019 10:36 AM * Telephone Encounter - Nany Espinosa - 09/10/2023 4:11 AM EDTPending Prescriptions: Disp Refills rOPINIRole HCl 1 MG Oral Tablet [Pharmacy *90 Tab*1 Sig: Take 1Tablet by mouth at bedtime. With food. For restless legs documented in this encounter Plan of Treatment Upcoming Encounters Date Type Department Care Team (Late st Contact Info) Description 09/14/2023 12:00 PM EDT Office Visit Cardiology [address] [place] [phone] Wellington Parrish PA-C [address] [place] [address] 09/15/2023 3:45 PM EDT Office Visit Urology, [facility] [address] [place] [address] Torrey Abdi MD 27 [place] [address] 2023 10:00 AM EDT Office Visit Family Medicine [address] [place] [phone] Anna King MD [address] [place] [address] [place] [address] 11/15/2023 9:30 AM EDT Office Visit Urology, [facility] [address] [facility] [place] [address] Torrey Abdi MD 27 [place] [address] 02/01/2024 3:00 PM EST Office Visit [facility] [place] [phone] Magalys Dexter CRNP [address] [place] [address] 03/21/2024 10:00 AM EST Office Visit Nephrology, [facility] [address] [place] [address] Darwin Barker MD [address] [place] [address] 07/20/2024 1:00 PM EDT Nurse Only Ancillary [address] [place] [address] [place], Nurse [address] [place] [address] 07/24/2024 2:20 PM EDT Office Visit Dermatology [address] [place] [address] Bertha Kapoor PA-C [address] [place] [address] [place] [id number] Scheduled Procedures Name Priority Associated Diagnoses Date/Ti me COLONOSCOPY FLEXIBLE PROXIMAL DIAGNOSTIC Recall History of colon polyps Health Maintenance Due Date Last Done Comments Colonoscopy 12/17/2020 12/17/2017, 10/2017, 11/09/2014, Additional history exists COVID-19 Vaccine ( season) 2023 03/01/2023, 12/19/2021, 12/10/2020, Additional history exists Influenza Vaccine (FLU shot) (#1) 2023 10/20/2022, 10/20/2021, 10/24/2020, Additional history exists CKD PHOS USE SMARTSET 76090 01/13/202406/2022, 01/11/2023, 01/10/2023, Additional history exists GFR 01/29/2024 07/30/2023, 0410/2023, 05/20/2023, Additional history exists Albumin/Creatinine Ratio 03/01/2024 024, 02/13/2022, 10/25/2014 CKD HGB USE SMARTSET 55190 03/01/202403/01, 03/01/2023, 01/15/2023, Additional history exists TSH 05/10/2024 05/11/2023, 04/2022, 01/09/2023, Additional history exists Depression Monitoring 07/18/2024 07/19/2023 DTaP,Tdap,and Td Vaccines (2 - Td or Tdap) 06/02/2027 06/01/2017, 12/14/2007 Hepatitis B Vaccine Completed 11/11/2011, 06/10/2011, 05/13/2011 Pneumococcal Vaccine: 65+ Years Completed 04/17/2014, 06/13/2008 Zoster Vaccines Completed 05/03/2020, 05/2019, 10/26/2019, Additional history exists HPV (Gardasil) Vaccine Aged Out No lo nger eligible based on patient's age to complete this topic MENINGOCOCCAL (MENACTRA/MENVEO) Aged Out No longer eligible based on patient's age to complete this topic documented as of this encounter Medical Devices Not on filedocumented as of this encounter Visit Diagnoses Diagnosis Restless legs syndrome Restless legs syndrome (RLS) documented in this encounter Advance Directives * Full Code (Latest Code Status on File) Date Activated Date Inactivated Comments 01/04/2023 6:10 PM 01/15/2023 4:20 PM This order reflects the patients wishes and were consensually agreed upon. Question Answer Comments Discussion of Advance Direct marianna occurred with: Not Discussed due to patient's condition Care Teams International Freight Forwarder Relationship Specialty Start Date End Date Anna King MD [address] [place] [address] [place] [id number] PCP - General Family Medicine 07/24/13 documented as of this encounter
--- OUTSIDE RECORDS SUMMARY | 2024-01-06 09:58 | External Medical Summary | Summary of Care ---
Author Name Unknown Organization [facility] [address] [facility] [address] Phone [phone] Care Team Providers Care Fiscal Specialist Name Role Phone Anna King MD Primary Care Provide r Reason for Visit * Reason Onset Date Comments Medication Refill 08/13/2023 Encounter Details Date Type Department Care Team (Late st Contact Info) Description 08/13/2023 Refill Cardiology, [facility] [address] [place] [address] Minh Thapa PA-C [address] [place] [address] Allergies Active Allergy Reactions Criticality Noted Date Comments Niacin 09/20/2002 niaspan-flushing Oxycodone-Acetaminophen 08/18/2014 Propoxyphene Napsylate 03/08/2003 rash documented as of this encounter (statuses as of 08/13/2023) Medications Medication Sig Dispensed Refills Start Date [...] and 3 mL before bedtime. 180 mL 10/30/2022 Active Metoprolol Tartrate 25 MG Oral Tablet (Lopressor) Take 1 Tablet by mouth in the morning and 1 Tablet before bedtime. 180 Tablet 1 11/09/2022 Active rOPINIRole HCl 1 MG Oral TabletIndications:R estless legs syndrome Take 1 Tablet by mouth at bedtime. With food. For restless legs 90 Tablet 1 11/26/2022 Active Albuterol Sulfate (2.5 MG/3ML) 0.083% Inhalation Nebulization Solution (Proventil) Inhale 1 Vial via nebulizer every 4 hours as needed for Wheezing or Shortness of Breath. 360 mL 11 01/15/2023 Active Additional Information Patient not taking.Reported on [...] 05/26/2023 Active Torsemide 20 MG Oral Tablet (Demadex)Indication s:Heart failure, diastolic, due to HTN (HCC) Take 2 Tablets by mouth in the morning. 180 Tablet 1 05/27/2023 Active dilTIAZem HCl 30 MG Oral Tablet (Cardizem) Take 1 Tablet by mouth in the morning and 1 Tablet at noon and 1 Tablet before bedtime. 90 Tablet 2 06/07/2023 Active cycloSPORINE 0.05 % Ophthalmic Emulsion (Restasis) Instill 1 Drop into both eyes at bedtime. Active Apixaban 2.5 MG Oral Tablet (Eliquis) Take 1 Tablet by mouth in the morning and 1 Tablet before bedtime. 180 Tablet 3 08/13/2023 Active Apixaban 2.5 MG Oral Tablet (Eliquis) Take 1 Tablet by mouth in the morning and 1 Tablet before bedtime. 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 Authorizing Provider: MINH THAPA * Telephone Encounter - Shailesh Madison LPN - 08/13/2023 3:37 PM EDT Did you pend patient's preferred pharmacy and medication before forwarding?yes Pharmacy: [id number] [id number] [place] Pending Prescriptions: Disp Refills Apixaban 2.5 MG Oral Tablet (Eliquis) 180 Ta*3 Sig: Take 1 Tablet by mouth in the morning and 1 Tablet before bedtime. Last Visit: 06/22/23 (in office), Visit date not found (telemedicine) Next Visit: 09/14/23 If no future appointments scheduled, and last appointment is greater than a year ago, please schedule patient for a follow-up appointment Last date the medication was ordered: 11/20/22 Is this request for a controlled substance?No [...] 09/14/2023 12:00 PM EDT Office Visit Cardiology [address] [place] [address] Minh Thapa PA-C 132 [place] [address] 09/15/2023 3:45 PM EDT [facility] [address] [place] [address] Torrey Abdi MD [address] [place] [address] 2023 10:00 AM EDT Office Visit Family Medicine [address] [place] [phone] Anna King MD [address] [place] [address] [place] [address] 02/01/2024 3:00 PM EST Office Visit [facility] Disorders Ctr [facility] [place] [address] [place] [phone] Magalys Dexter CRNP [address] [place] [address] 03/21/2024 10:00 AM EST Office Visit Nephrology, [facility] [address] [place] [address] Darwin Barker MD [address] [place] [address] 07/20/2024 1:00 PM EDT Nurse Only Ancillary [address] [place] [address] [place], Nurse Annual [address] [place] [address] 07/24/2024 2:20 PM EDT Office Visit Dermatology [address] [place] [address] Bertha Kapoor PA-C [address] [place] [address] [place] [phone] Scheduled Procedures Name Priority Associated Diagnoses Date/Ti me COLONOSCOPY FLEXIBLE PROXIMAL DIAGNOSTIC Recall History of colon polyps Health Maintenance Due Date Last Done Comments Colonoscopy 12/17/2020 12/17/2017, 10/2017, 11/09/2014, Additional history exists COVID-19 Vaccine (2022- season) 2023 03/01/2023, 12/19/2021, 12/10/2020, Additional history exists Influenza Vaccine (FLU shot) (#1) 2023 10/20/2022, 10/20/2021, 10/24/2020, Additional history exists CKD PHOS USE SMARTSET 38102 01/13/202406/2022, 01/11/2023, 01/10/2023, Additional history exists GFR 01/29/2024 07/30/2023, 05/09, 05/20/2023, Additional history exists Albumin/Creatinine Ratio 03/01/2024 024, 02/13/2022, 10/25/2014 CKD HGB USE SMARTSET 45190 03/01/202403/01, 03/01/2023, 01/15/2023, Additional history exists TSH [...] Discussed due to patient's condition Care Teams Fiscal Specialist Relationship Specialty Start Date End Date Anna King MD [address] [place] [address] [place] [id number] PCP - General Family Medicine 07/24/13 documented as of this encounter
--- OUTSIDE RECORDS SUMMARY | 2024-01-06 09:58 | External Medical Summary ---
Author Name Unknown Address Unknown Organization K01:[facility] [address] [place] [address] Laboratory Report Ordering Provider Test Date Status HENRY TORRES 09/06/2023 11:52:09 Final Observation Date Value Abnormality Reference (Units ) Status PSA 09/06/2023 11:52:09 0.86 <4.10 (ng/ mL) Final Performing Location [facility] [address] [place] [address]
--- OUTSIDE RECORDS SUMMARY | 2024-01-06 09:58 | External Medical Summary | Summary of Care ---
Author Name Unknown Organization [facility] Address [address] [facility] [address] Phone [phone] Care Team Providers Care Meat Stringer Name Role Phone Anna King MD Primary Care Provide r Reason for Visit * Reason Onset Date Comments Medication Refill 08/20/2023 Encounter Details Date Type Department Care Team (Late st Contact Info) Description 08/20/2023 [facility] [address] [place] [phone] Casper Chapa CRNP [address] [place] [address] Allergies Active Allergy Reactions Criticality Noted Date Comments Niacin 09/20/2002 niaspan-flushing Oxycodone-Acetaminophen 08/18/2014 Propoxyphene Napsylate 03/08/2003 rash documented as of this encounter (statuses as of 08/24/2023) Medications Medication Sig Dispensed Refills Start Date [...] OTHER MEDICATIONS) 90 Tablet 2 09/25/2022 Active Metoprolol Tartrate 25 MG Oral Tablet [...] mL before bedtime. 180 mL 08/24/2023 Active Sodium Chloride 3 % Inhalation Nebulization Solution Inhale 3 mL via nebulizer in the morning and 3 mL before bedtime. 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 Authorizing Provider: CASPER CHAPA * Telephone Encounter - Isabel Garduno, camelid fiber sorter - 08/20/2023 11:28 AM EDT Did you pend patient's preferred pharmacy and medication before forwarding?yes Pharmacy: [id number] [facility] Pending Prescriptions: Disp Refills Sodium Chloride 3 % Inhalation Nebulizati*180 mL 0 Sig: Inhale 3 mL via nebulizer in the morning and 3 mL before bedtime. Last Visit: 10/30/2022 (in office), Visit date not found (telemedicine) Next Visit: 02/01/2024 If no future appointments scheduled, and last appointment is greater than a year ago, please schedule patient for a follow-up appointment Last date the medication was ordered: 10/30/2022 Is this request for a controlled substance?No [...] 09/14/2023 12:00 PM EDT Office Visit Cardiology [address] [place] [address] Wellington Parrish PA-C [address] [place] [address] 09/15/2023 3:45 PM EDT Office Visit Urology, [facility] [address] [place] [address] Torrey Abdi MD [address] [place] [address] 2023 10:00 AM EDT Office Visit Family Medicine [address] [place] [phone] Anna King MD [address] [place] [address] [place] [address] 02/01/2024 3:00 PM EST Office Visit [facility] Disorders Ctr [facility] [address] [place] [phone] Casper Chapa CRNP [address] [place] [address] 03/21/2024 10:00 AM EST Office Visit Nephrology, [facility] [address] [place] [address] Darwin Barker MD [address] [place] [address] 07/20/2024 1:00 PM EDT Nurse Only Ancillary [address] [place] [address] [place], Nurse [facility] [address] [place] [address] [place] [address] 07/24/2024 2:20 PM EDT Office Visit Dermatology [address] [place] [address] Bertha Kapoor PA-C [address] [place] [address] [place] [phone] Scheduled Procedures Name Priority Associated Diagnoses Date/Ti me COLONOSCOPY FLEXIBLE PROXIMAL DIAGNOSTIC Recall History of colon polyps Health Maintenance Due Date Last Done Comments Colonoscopy 12/17/2020 12/17/2017, 10/2017, 11/09/2014, Additional history exists COVID-19 Vaccine ( season) 2023 03/01/2023, 12/19/2021, 12/10/2020, Additional history exists Influenza Vaccine (FLU shot) (#1) 2023 10/20/2022, 10/20/2021, 10/24/2020, Additional history exists CKD PHOS USE SMARTSET 43549 01/13/202406/2022, 01/11/2023, 01/10/2023, Additional history exists GFR 01/29/2024 07/30/2023, 05/09, 05/20/2023, Additional history exists Albumin/Creatinine Ratio 03/01/2024 024, 02/13/2022, 10/25/2014 CKD HGB USE SMARTSET 70970 03/01/202403/01, 03/01/2023, 01/15/2023, Additional history exists TSH [...] Discussed due to patient's condition Care Teams Meat Stringer Relationship Specialty Start Date End Date Anna King MD [address] [place] [address] [place] [address] PCP - General Family Medicine 07/24/13 documented as of this encounter
--- OUTSIDE RECORDS SUMMARY | 2024-01-06 09:58 | External Medical Summary | Summary of Care ---
Author Name Unknown Organization [facility] Address [address] [facility] [place] [address] Phone [phone] Care Team Providers Care Time Piece Repairer Name Role Phone Anna King MD Primary Care Provide r Reason for Visit * Reason Comments Follow Up Encounter Details Date Type Department Care Team (Late st Contact Info) Description 09/14/2023 12:00 PM EDT Office Visit Cardiology [address] [place] [id number] Wellington Parrish PA-C [address] [place] [address] Chronic atrial fibrillation (HCC)*; HTN, goal below 140/90; Tachy-bipin syndrome (HCC); Cardiac pacemaker in situ; Nonrheumatic aortic valve stenosis; Chronic diastolic congestive heart failure (HCC); Cor pulmonale, chronic (HCC); Sinoatrial node dysfunction (HCC) Allergies Active Allergy Reactions Criticality Noted Date Comments Niacin 09/20/2002 niaspan-flushing Oxycodone-Acetaminophen 08/18/2014 Propoxyphene Napsylate 03/08/2003 rash documented as of this encounter (statuses as of 09/15/2023) Medications Medication Sig Dispensed Refills Start Date [...] (Demadex)Indication s:Heart failure, diastolic, due to HTN ([facility]) Take 2 Tablets by mouth in the [...] FOR RESTLESS LEGS 90 Tablet 1 4 09/14/19 24 Discontinued documented as of this encounter (statuses as of 09/15/2023) Active Problems Problem Noted Date Diagnosed Date [...] 02/26/19 21 Atherosclerotic heart diseas e of [place] coronary artery without angina pectoris 02/27/2020 Pancreas [...] as of this encounter (statuses as of 09/15/2023) Resolved Problems Problem Noted Date Diagnosed Date [...] as of this encounter (statuses as of 09/15/2023) Immunizations Name Administration Dates Next Due COVID-19 [...] Sign Reading Time Taken Comments Blood Pressure 112/62 09/14/2023 12:04 PM EDT Pulse 64 09/14/2023 12:04 PM EDT Temperature - - Respiratory Rate 16 09/14/2023 12:0 4 PM EDT Oxygen Saturation 93% 09/14/2023 12: 04 PM EDT on 2L nasal dominik Inhaled Oxygen Concentration - - Weight 98.4 kg (217 lb) 09/14/2023 12:0 4 PM EDT Height - - Body Mass Index 29.43 07/19/2023 1:22 PM EDT documented in this encounter Progress Notes * Wellington Parrish PA-C - 09/14/2023 12:13 PM EDT History of Present Illness: Cristhian May is a very pleasant 82 year old male who returns today for cardiology follow-up evaluation. Feeling OK. Chronic stable cough and chest congestion, chronic bronchitis. Breathing is acceptably as long as he wears the supplemental oxygen BiPAP utilized at nighttime. He has not been walking with his daughter in the evenings due to the heat. No chest pain. No palpitations Stable orthopnea No PND Edema has improved. Legs seem to be stronger No abrupt weight change, up one pound from last evaluation. No epistaxis, hemoptysis, melena, hematochezia, or hematuria. Patient Active Problem List Diagnosis Hip joint [...] stress disorder, chronic Atherosclerotic heart disease of zuni coronary artery without angina pectoris Other schizophrenia [...] by mouth at bedtime. 30 Tablet 0 Levothyroxine Sodium 75 MCG Oral Tablet (Levoxyl) TAKE 1 TABLET BY MOUTH EVERY DAY (AT LEAST 30 MINUTES PRIOR TO BREAKFAST OR OTHER MEDICATIONS) 90 Tablet 2 Metoprolol Tartrate 25 MG Oral Tablet (Lopressor) Take 1 Tablet by mouth in the morning and 1 Tablet before bedtime. 180 Tablet 1 Acetaminophen 325 MG Oral Tablet (Tylenol) Take [...] and 3mL before bedtime. 180 mL 0 dilTIAZem HCl 30 MG Oral Tablet (Cardizem) Take 1 Tablet by mouth in the morning and 1 Tablet at noon and 1 Tablet before bedtime. 270 Tablet 2 Leuprolide Acetate (3 Month) 22.5 MG Intramuscular Kit (Lupron) Inject 22.5 mg into a large muscle.Every 3 months, given by Urology, depending on his PSA. Albuterol Sulfate (2.5 MG/3ML) 0.083% Inhalation Nebulization Solution (Proventil) Inhale 1 Vial via nebulizer every 4 hours as needed for Wheezing or Shortness of Breath. (Patient not taking: Reported on 08/04/2023) 360 mL 11 No current facility-administered medications for this visit. OBJECTIVE/PHYSICAL EXAMINATION: BP 112/62 | Pulse 64 | Resp 16 | Wt 98.4 kg (217 lb) | SpO2 93% Comment: on 2L nasal dominik | BMI 29.43 kg/m | BSA 2.24 m General: A&Ox3. NAD. HENT: Normocephalic. Atraumatic. Eyes: PER. Conjunctiva pink, sclera clear. Neck: No carotid bruits. No JVD. Heart: Irregular at 70 bpm. Soft systolic murmur. PMI is nondisplaced. Lungs: Diminished, decreased. Scattered rhonchi/crackles. No wheeze. Abdomen: Obese. +BS. Soft. Nontender. No masses or organomegaly. Extremities: Minimal edema bilaterally. Stasis changes. No clubbing. No cyanosis. Limited neurological examination is without focal deficits. [...] the aortic valve gradients are relatively unchanged. August 09, 2023 device interrogation demonstrated appropriate function, 9.4 years remaining longevity.Mode: VVIR with lower rate at 60 bpm, upper sensor rate of 130 bpm. Ventricular paced 58.4% of the time. Average ventricular rates well controlled ASSESSMENT: Chronic atrial fibrillation, with controlled rates via the most recent device interrogation, anticoagulated with reduced dose Eliquis given age greater than 80 and creatinine greater than 1.5 mg/dL. No significant bleeding issues. Stable ambulatory dysfunction. 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 Mild valvular disease, stable via August 2023 echo. 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 Obstructive sleep apnea and nocturnal hypoxemia, on BiPAP with supplemental oxygen. Stage III chronic kidney disease Hypertension, with mild to moderate LVH Dyslipidemia. LDL cholesterol 80 mg/dL on 06/04/2022. Hypothyroidism BPH Depression Prostate cancer Pancreatic cysts History of lower extremity wounds, previously followed by the [facility] Status post interim left hip replacement and [address] Esteves. Options discussed with patient and . Via shared decision making, we have agreed to the following: RECOMMENDATIONS/PLAN: Fluid retention is acceptable and heart rates are well controlled, patient preferring to remain on short-acting diltiazem, long acting diltiazem, and metoprolol tartrate as presently prescribed. No changes made today. Routine cardiology follow-up in 4-6 months, or as needed. ER with emergencies. Wellington Parrish PA-C Department of Cardiology I spent a total of 20-29 minutes (exact time 26 mins) on the date of service in preparation, delivery, and documentation of the care provided to Cristhian May excluding any time spent in the performance of separately billed services. This visit involved medical care services related to at least one serious condition or complex condition requiring ongoing care. This chart was completed in part utilizing [employer] Speech Voice Recognition Software. Grammatical errors, random [...] documented in this encounter Nursing Notes * Francoise Crocker LPN - 09/14/2023 12:04 PM EDT Examination Room: 4 Name: Cristhian May Date of : 1940 Reason for Visit: Follow up Problems/Concerns: Feeling good today Interim Hosp(s): denies Chest Pain/SOB: Denies CP, SOB is not worsening MyChart Discussed: DECLINES Patient was instructed to not get up on the exam table until directed and assisted by their provider; patient is to remain seated in the chair/ wheelchair/ exam table for fall prevention and safety reasons. Patient is aware staff will assist stepping down off exam table with personnel. documented in this encounter Plan of Treatment Upcoming Encounters Date Type Department Care Team (Late st Contact Info) Description 2023 10:00 AM EDT Office Visit Family Medicine [address] [place] [phone] Anna King MD [address] [place] [address] [place] [id number] 11/15/2023 9:30 AM EDT Office Visit Urology, [facility] [address] [facility] [place] [address] Torrey Abdi MD [address] [place] [address] 02/01/2024 3:00 PM EST Office Visit Sleep Disorders Ctr [facility] [address] [facility] [place] [phone] Magalys Dexter CRNP [address] [facility] [place] [address] 03/21/2024 10:00 AM EST Office Visit Nephrology, [facility] [address] [place] [address] Darwin Barker MD [address] [place] [address] 03/30/2024 2:00 PM EST Office Visit Cardiology [address] [place] [address] Wellington Parrish PA-C [address] [place] [address] 07/20/2024 1:00 PM EDT Nurse Only Ancillary [address] [place] [phone] [place], Nurse Annual [facility] [address] [place] [address] [place] [id number] 07/24/2024 2:20 PM EDT Office Visit Dermatology [address] [place] [address] Bertha Kapoor PA-C [address] [place] [address] [place] [id number] Scheduled Procedures Name Priority Associated Diagnoses Date/Ti me COLONOSCOPY FLEXIBLE PROXIMAL DIAGNOSTIC Recall History of colon polyps Health Maintenance Due Date Last Done Comments Colonoscopy 12/17/2020 12/17/2017, 10/2017, 11/09/2014, Additional history exists COVID-19 Vaccine ( season) 2023 03/01/2023, 12/19/2021, 12/10/2020, Additional history exists Influenza Vaccine (FLU shot) (#1) 2023 10/20/2022, 10/20/2021, 10/24/2020, Additional history exists CKD PHOS USE SMARTSET 70338 01/13/202406/2022, 01/11/2023, 01/10/2023, Additional history exists GFR 01/29/2024 07/30/2023, 05/09, 05/20/2023, Additional history exists Albumin/Creatinine Ratio 03/01/2024 024, 02/13/2022, 10/25/2014 CKD HGB USE SMARTSET 99840 03/01/202403/01, 03/01/2023, 01/15/2023, Additional history exists TSH 05/10/2024 05/11/2023, 04/2022, 01/09/2023, Additional history exists Adult Wellness Visit 07/18/2024 07/19/2023, 01/12/2022, 12/10/2020 Depression Monitoring 07/18/2024 07/19/2023 DTaP,Tdap,and Td Vaccines (2 - Td or Tdap) 06/02/2027 06/01/2017, 06/01/2017, 12/14/2007 Hepatitis B Vaccine Completed 11/11/2011, 06/10/2011, 05/13/2011 Pneumococcal Vaccine: 65+ Years Completed 04/17/2014, 06/13/2008 Zoster Vaccines Completed 05/03/2020, 04/09, 12/13/2019, Additional history exists HPV (Gardasil) Vaccine Aged Out No lo nger eligible based on patient's age to complete this topic MENINGOCOCCAL (MENACTRA/MENVEO) Aged Out No longer eligible based on patient's age to complete this topic documented as of this encounter Medical Devices Not on filedocumented as of this encounter Visit Diagnoses Diagnosis Chronic atrial fibrillation (HCC)- Primary Atrial fibrillation HTN, goal below 140/90 Unspecified essential hypertension Tachy-bipin syndrome (HCC) Sinoatrial node dysfunction Cardiac pacemaker in situ Nonrheumatic aortic valve stenosis Aortic valve disorders Chronic diastolic congestive heart failure (HCC) Chronic diastolic heart failure Cor pulmonale, chronic (HCC) Chronic pulmonary heart disease, unspecified Sinoatrial node dysfunction (HCC) Sinoatrial node dysfunction documented in this encounter Advance Directives * Full Code (Latest Code Status on File) Date Activated Date Inactivated Comments 01/04/2023 6:10 PM 01/15/2023 4:20 PM This order reflects the patients wishes and were consensually agreed upon. Question Answer Comments Discussion of Advance Direct marianna occurred with: Not Discussed due to patient's condition Care Teams Time Piece Repairer Relationship Specialty Start Date End Date Anna King MD [address] [place] [address] [place] [id number] PCP - General Family Medicine 07/24/13 documented as of this encounter"
--- OUTSIDE RECORDS SUMMARY | 2024-01-06 09:58 | External Medical Summary | Summary of Care ---
Author Name Unknown Organization [facility] Address [address] [place] [address] Phone [phone] Care Team Providers Care Kennel Technician Name Role Phone Anna King MD Primary Care Provide r Reason for Visit * Reason Onset Date Comments Medication Refill 08/30/2023 Encounter Details Date Type Department Care Team (Late st Contact Info) Description 08/30/2023 Refill Family Medicine [address] [phone] Anna King MD [address] [place] [address] [place] [id number] Allergies Active Allergy Reactions Criticality Noted Date Comments Niacin 09/20/2002 niaspan-flushing Oxycodone-Acetaminophen 08/18/2014 Propoxyphene Napsylate 03/08/2003 rash documented as of this encounter (statuses as of 08/30/2023) Medications Medication Sig Dispensed Refills Start Date [...] mL before bedtime. 180 mL 08/24/2023 Active dilTIAZem HCl 30 MG Oral Tablet (Cardizem) Take 1 Tablet by mouth in the morning and 1 Tablet at noon and 1 Tablet before bedtime. 270 Tablet 2 08/30/2023 Active dilTIAZem HCl 30 MG Oral Tablet (Cardizem) Take 1 Tablet by mouth in the morning and 1 Tablet at noon and 1 Tablet before bedtime. 90 Tablet 2 06/07/2023 4 Discontinu ed(Refill) documented as of this encounter (statuses as of 08/30/2023) Active Problems Problem Noted Date Diagnosed Date [...] chronic 02/26/19 Atherosclerotic heart diseas e of [place] coronary artery without angina pectoris 02/27/2020 Pancreas [...] as of this encounter (statuses as of 08/30/2023) Resolved Problems Problem Noted Date Diagnosed Date [...] IIA(T1c, N0, M0, PSA: Less than 10, [place] 7) - Signed by Jace Means MD [...] as of this encounter (statuses as of 08/30/2023) Immunizations Name Administration Dates Next Due COVID-19 mRNA, LNP-s, No Pre serve, 2-Dose Series (Moderna) 12/01/2020,04/17/2020,03/20/2020 COVID-19, MRNA-LNP, 23-24, P F, 30 MCG/0.3 mL, 12 YRS AND ABOVE, IM (PFIZER-Comirnat) 03/01/2023 COVID-19, mRNA, LNP-s, PF, B ooster, [...] Telephone Encounter - Anna King MD - 08/30/2023 1:38 PM EDT Signed Prescriptions: Disp Refills dilTIAZem HCl 30 MG Oral Tablet (Cardizem) 270 Ta*2 Sig: Take 1 Tablet by mouth in the morning and 1 Tablet at noon and 1 Tablet before bedtime. Authorizing Provider: ANNA KING * Telephone Encounter - Claudia Barnes, MAHIN - 08/30/2023 1:09 PM EDTPending Prescriptions: Disp Refills dilTIAZem HCl 30 MG Oral Tablet (Cardizem) 270 Ta*2 Sig: Take 1 Tablet by mouth in the morning and 1 Tablet at noon and 1 Tablet before bedtime. * Telephone Encounter - Maru Hunter OSA - 08/30/2023 12:07 PM EDT Did you pend patient's preferred pharmacy and medication before forwarding?yes Pharmacy: [id number] [id number] [facility] Pending Prescriptions: Disp Refills dilTIAZem HCl 30 MG Oral Tablet (Cardizem)90 Tab*2 Sig: Take 1 Tablet by mouth in the morning and 1 Tablet at noon and 1 Tablet before bedtime. Last Visit: 08/04/2023 (in office), Visit date not found (telemedicine) Next Visit: 2023 If no future appointments scheduled, and last appointment is greater than a year ago, please schedule patient for a follow-up appointment Last date the medication was ordered: 06/07/23 90 day supply request Is this request for a controlled substance?No [...] 09/14/2023 12:00 PM EDT Office Visit Cardiology [address] [place] [address] Wellington Parrish PAWaylonC [address] [place] [address] 09/15/2023 3:45 PM EDT Office Visit Urology, [facility] [address] [place] [address] Torrey Abdi MD [address] [place] [address] 2023 10:00 AM EDT Office Visit Family Medicine [address] [place] [phone] Anna King MD [address] [place] [address] [place] [id number] 02/01/2024 3:00 PM EST Office Visit Sleep Disorders Ctr [facility] [address] [place] [phone] Magalys Dexter CRNP [address] [place] [address] 03/21/2024 10:00 AM EST Office Visit Nephrology, [facility] [address] [place] [address] Darwin Barker MD [address] [place] [address] 07/20/2024 1:00 PM EDT Nurse Only Ancillary [address] [place] [phone] [place], Nurse [facility] [address] [place] [address] [place] [id number] 07/24/2024 2:20 PM EDT Office Visit Dermatology [address] [place] [address] Bertha Kapoor PA-C [address] [place] [address] [place] [id number] Scheduled Procedures Name Priority Associated Diagnoses Date/Ti me COLONOSCOPY FLEXIBLE PROXIMAL DIAGNOSTIC Recall History of colon polyps Health Maintenance Due Date Last Done Comments Colonoscopy 12/17/2020 12/17/2017, 0 10/2017, 11/09/2014, Additional history exists COVID-19 Vaccine ( season) 2023 03/01/2023, 12/19/2021, 12/10/2020, Additional history exists Influenza Vaccine (FLU shot) (#1) 2023 10/20/2022, 10/20/2021, 10/24/2020, Additional history exists CKD PHOS USE SMARTSET 28718 01/13/2024 120 06/2022, 01/11/2023, 01/10/2023, Additional history exists GFR 01/29/2024 07/30/2023, 05/09, 05/20/2023, Additional history exists Albumin/Creatinine Ratio 03/01/2024 024, 02/13/2022, 10/25/2014 CKD HGB USE SMARTSET 65204 03/01/202403/01, 03/01/2023, 01/15/2023, Additional history exists TSH [...] Discussed due to patient's condition Care Teams Kennel Technician Relationship Specialty Start Date End Date Anna King MD [address] [place] [address] [place] [phone] PCP - General Family Medicine 07/24/13 documented as of this encounter
--- OUTSIDE RECORDS SUMMARY | 2024-01-06 09:58 | External Medical Summary | Summary of Care ---
Author Name Unknown Organization [facility] Address [address] [place] [address] Phone [phone] Care Team Providers Care Health Concierge Name Role Phone Anna King MD Primary Care Provide r Encounter Details Date Type Department Care Team (Late st Contact Info) Description 08/31/2023 Population Health External Data Unspecified Department Allergies Active Allergy Reactions Criticality Noted Date Comments Niacin 09/20/2002 niaspan-flushing Oxycodone-Acetaminophen 08/18/2014 Propoxyphene Napsylate 03/08/2003 rash documented as of this encounter (statuses as of 09/03/2023) Medications Medication Sig Dispensed Refills Start Date [...] 11/09/2022 Active rOPINIRole HCl 1 MG Oral TabletIndications:Re [...] 05/26/2023 Active Torsemide 20 MG Oral Tablet (Demadex)Indications [...] before bedtime. 270 Tablet 2 08/30/2023 Active documented as of this encounter (statuses as of 09/03/2023) Active Problems Problem Noted Date Diagnosed Date [...] as of this encounter (statuses as of 09/03/2023) Resolved Problems Problem Noted Date Diagnosed Date [...] IIA(T1c, N0, M0, PSA: Less than 10, [place] 7) - Signed by Jace Means MD [...] as of this encounter (statuses as of 09/03/2023) Immunizations Name Administration Dates Next Due COVID-19 [...] 12:00 PM EDT Office Visit Cardiology [address] [place] [address] Wellington Parrish PA-C [address] [place] [address] 09/15/2023 3:45 PM EDT Office Visit Urology, [facility] [address] [place] [address] Torrey Abdi MD [address] [place] [address] 2023 10:00 AM EDT Office Visit Family Medicine [address] [place] [phone] Anna King MD [address] [place] [address] [place] [phone] 02/01/2024 3:00 PM EST Office Visit [facility] [address] [place] [phone] Magalys Dexter CRNP [address] [place] [address] 03/21/2024 10:00 AM EST Office Visit Nephrology, [facility] [address] [place] [address] Darwin Barker MD [address] [place] [address] 07/20/2024 1:00 PM EDT Nurse Only Ancillary [address] [place] [address] [place], Nurse [facility] [address] [place] [address] [place] [phone] 07/24/2024 2:20 PM EDT Office Visit Dermatology [address] [place] [address] Bertha Kapoor PA-C [address] [place] [address] [place] [id number] Scheduled Procedures Name Priority Associated Diagnoses Date/Ti me COLONOSCOPY FLEXIBLE PROXIMAL DIAGNOSTIC Recall History of colon polyps Health Maintenance Due Date Last Done Comments Colonoscopy 12/17/2020 12/17/2017, 10/2017, 11/09/2014, Additional history exists COVID-19 Vaccine ( season) 2023 03/01/2023, 12/19/2021, 12/10/2020, Additional history exists Influenza Vaccine (FLU shot) (#1) 2023 10/20/2022, 10/20/2021, 10/24/2020, Additional history exists CKD PHOS USE SMARTSET 69764 01/13/202406/2022, 01/11/2023, 01/10/2023, Additional history exists GFR 01/29/2024 07/30/2023, 05/09, 05/20/2023, Additional history exists Albumin/Creatinine Ratio 03/01/2024 024, 02/13/2022, 10/25/2014 CKD HGB USE SMARTSET 28931 03/01/202403/01, 03/01/2023, 01/15/2023, Additional history exists TSH [...] Discussed due to patient's condition Care Teams Health Concierge Relationship Specialty Start Date End Date Anna King MD [address] [place] [address] [place] [phone] PCP - General Family Medicine 07/24/13 documented as of this encounter
--- OUTSIDE RECORDS SUMMARY | 2024-01-06 09:58 | External Medical Summary | Summary of Care ---
Author Name Unknown Organization [facility] Address [address] [place] [address] Phone [phone] Care Team Providers Care Foreign Broadcast Specialist Name Role Phone Anna King MD Primary Care Provide r Encounter Details Date Type Department Care Team (Late st Contact Info) Description 09/26/2023 Result Scan Unspecified Department Janiya Whitman, DO [facility] [address] <No scans attached> Allergies Active Allergy Reactions Criticality Noted Date Comments Niacin 09/20/2002 niaspan-flushing Oxycodone-Acetaminophen 08/18/2014 Propoxyphene Napsylate 03/08/2003 rash documented as of this encounter (statuses as of 09/26/2023) Medications Medication Sig Dispensed Refills Start Date [...] before bedtime. 180 Tablet 1 11/09/2022 Active Albuterol Sulfate (2.5 MG/3ML) 0.083% Inhalation [...] as of this encounter (statuses as of 09/26/2023) Active Problems Problem Noted Date Diagnosed Date [...] 02/26/19 21 Atherosclerotic heart diseas e of [place] coronary artery without angina pectoris 02/27/2020 Pancreas [...] as of this encounter (statuses as of 09/26/2023) Resolved Problems Problem Noted Date Diagnosed Date [...] IIA(T1c, N0, M0, PSA: Less than 10, [place] 7) - Signed by Jace Means MD [...] as of this encounter (statuses as of 09/26/2023) Immunizations Name Administration Dates Next Due COVID-19 mRNA, LNP-s, No Pre serve, 2-Dose Series (Moderna) 12/01/2020,04/17/2020,03/20/2020 COVID-19, MRNA-LNP, 23-24, P F, 30 MCG/0.3 mL, 12 YRS AND ABOVE, IM ([facility]) 03/01/2023 COVID-19, mRNA, LNP-s, PF, B ooster, [...] 10:00 AM EDT Office Visit Family Medicine [address] [place] [address] Anna King MD [address] [place] [address] [place] [address] 11/15/2023 9:30 AM EDT Office Visit Urology, [facility] [address] [facility] [place] [address] Torrey Abdi MD 27 [place] [address] 02/01/2024 3:00 PM EST [facility] [address] [place] [phone] Magalys Dexter CRNP [address] [place] [address] 03/21/2024 10:00 AM EST Office Visit Nephrology, [facility] [address] [place] [address] Darwin Barker MD [address] [place] [address] 03/30/2024 2:00 PM EST Office Visit Cardiology [address] [place] [address] Wellington Parrish PA-C [address] [place] [address] 07/20/2024 1:00 PM EDT Nurse Only Ancillary [address] [place] [address] [place], Nurse Annual [address] [place] [address] 07/24/2024 2:20 PM EDT Office Visit Dermatology [address] [place] [address] Bertha Kapoor PA-C [address] [place] [address] [place] [phone] Scheduled Procedures Name Priority Associated Diagnoses Date/Ti me COLONOSCOPY FLEXIBLE PROXIMAL DIAGNOSTIC Recall History of colon polyps Health Maintenance Due Date Last Done Comments Colonoscopy 12/17/2020 12/17/2017, 10/2017, 11/09/2014, Additional history exists COVID-19 Vaccine ( season) 2023 03/01/2023, 12/19/2021, 12/10/2020, Additional history exists Influenza Vaccine (FLU shot) (#1) 2023 10/20/2022, 10/20/2021, 10/24/2020, Additional history exists CKD PHOS USE SMARTSET 15340 01/13/202406/2022, 01/11/2023, 01/10/2023, Additional history exists GFR 01/29/2024 07/30/2023, 05/09, 05/20/2023, Additional history exists Albumin/Creatinine Ratio 03/01/2024 024, 02/13/2022, 10/25/2014 CKD HGB USE SMARTSET 29494 03/01/202403/01, 03/01/2023, 01/15/2023, Additional history exists TSH [...] Date/Time Associated Diagnosis Comments CARDIOLOGY SCANNED RESULT 09/26/2023 documented in this encounter Results * CARDIOLOGY SCANNED RESULT (09/26/2023) 09/26/2023 Janiya Whitman DO OTHER documented in this encounter Advance Directives * Full Code (Latest Code Status on File) Date Activated Date Inactivated Comments 01/04/2023 6:10 PM 01/15/2023 4:20 PM This order reflects the patients wishes and were consensually agreed upon. Question Answer Comments Discussion of Advance Direct marianna occurred with: Not Discussed due to patient's condition Care Teams Foreign Broadcast Specialist Relationship Specialty Start Date End Date Anna King MD [address] [place] [address] [place] [phone] PCP - General Family Medicine 07/24/13 documented as of this encounter
--- OUTSIDE RECORDS SUMMARY | 2024-01-06 09:58 | External Medical Summary | Summary of Care ---
Author Name Unknown Organization [facility] Address [address] [place] [address] Phone [phone] Care Team Providers Care Rn Case Manager Hospice Name Role Phone Anna King MD Primary Care Provide r Reason for Visit * Reason Onset Date Comments Re-Check Medication Administration 2023 Flu an d/or Pneumo Inj Encounter Details Date Type Department Care Team (Late st Contact Info) Description 2023 10:00 AM EDT Office Visit Family Medicine [address] [phone] Anna King MD [address] [place] [address] [place] [address] Hypertensive heart and kidney disease with [...] as of this encounter (statuses as of 2023) Medications Medication Sig Dispensed Refills Start Date [...] 180 MG Oral Capsule Extended Release 24 HourIndications:Zach padgett persistent atrial fibrillation (HCC) TAKE 1 CAPSULE [...] as of this encounter (statuses as of 2023) Active Problems Problem Noted Date Diagnosed Date [...] 02/26/19 21 Atherosclerotic heart diseas e of [place] coronary artery without angina pectoris 02/27/2020 Pancreas [...] as of this encounter (statuses as of 2023) Resolved Problems Problem Noted Date Diagnosed Date [...] IIA(T1c, N0, M0, PSA: Less than 10, [place] 7) - Signed by Jace Means MD [...] as of this encounter (statuses as of 2023) Immunizations Name Administration Dates Next Due COVID-19 [...] old male last seen in Family Medicine [facility] on 08/04/2023 by Enma Sanchez He has [...] (HCC) Tachy-noni syndrome (HCC) Was called by immigration case worker this week and he reported increased leg [...] has been weighing himself daily on the [place] scales and weight was up 5 pounds [...] stress disorder, chronic Atherosclerotic heart disease of [place] coronary artery without angina pectoris Other schizophrenia [...] disease 01/2016 moderate RHF (right heart failure) ([facility]) 06/12/2016 Severe episode of recurrent major depressive disorder, with psychotic features ([facility]) 08/18/2017 Sleep apnea, obstructive 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 Machado--umremarkable COLONOSCOPY 2000 Jeannette--polyps COLONOSCOPY, DIAGNOSTIC (RECTUM) 11/09/2014 hyperplastic polyps, suboptimal prep, repeat 3 yrs/COLONOSCOPY FLEXIBLE PROXIMAL DIAGNOSTIC performed by Digna Ridley DO at ENDOSCOPY [facility] COLONOSCOPY, DIAGNOSTIC (RECTUM) 12/17/2017 hyperplastic polyp, repeat 3 yrs/COLONOSCOPY FLEXIBLE PROXIMAL DIAGNOSTIC performed by Digna Ridley DO at ENDOSCOPY [facility] CYSTOSCOPY 09/03/2014 EGD, FLEXIBLE, BALLOON DILATION >=30MM N/A 01/08/2023 ESOPHAGOGASTRODUODENOSCOPY (EGD), FLEXIBLE, TRANSORAL: BALLOON DILATION (30 MM OR MORE) performed by Boston Bennett MD at OR [facility] EGD, FLEXIBLE, DIAGNOSTIC N/A 01/07/2023 ESOPHAGOGASTRODUODENOSCOPY (EGD), FLEXIBLE, TRANSORAL, DIAGNOSTIC performed by Boston Bennett MD at ENDOSCOPY [facility] EGD, FLEXIBLE, DIAGNOSTIC N/A 01/06/2023 ESOPHAGOGASTRODUODENOSCOPY (EGD), FLEXIBLE, TRANSORAL, DIAGNOSTIC performed by Boston Bennett MD at ENDOSCOPY [facility] EGD, FLEXIBLE, DIAGNOSTIC N/A 12/15/2022 normal/EGD/[place] EGD, W/ENDOSCOPIC US 08/07/2019 pseudocysts, repeat 3 mo / ESOPHAGOGASTRODUODENOSCOPY (EGD), FLEXIBLE, TRANSORAL, ENDOSCOPIC ULTRASOUND performed by Kiran Lucia MD at ENDOSCOPY [facility] EGD, W/ENDOSCOPIC US 01/15/2020 pancreatic mucinous cyst / ESOPHAGOGASTRODUODENOSCOPY (EGD), FLEXIBLE, TRANSORAL, ENDOSCOPIC ULTRASOUND performed by Kiran Lucia MD at ENDOSCOPY [facility] INFORMATION 1971 vasectomy down in [facility] INTERSTITIAL RADIATION APPLICATION, COMPLEX 08/23/2013 INSTERSTITIAL RADIATION SOURCE APPLICATION COMPLEX performed by Chu Palomares MD at [facility] LUMBAR SPINE FUSION, POST INTERBODY N/A 12/03/2022 Dr. Esteves L2-L5 PROCTOSIGMOIDOSCOPY/REMOVE LESION benign REMOVAL OF ANORECTAL LESION REMOVAL OF TONSILS, AGE 12+ THORAX SPINE FUSION, POSTEROLATERAL 12/09/2022 Dr. 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 Witt TRANS PL OF NEED OR CATH IN [place] 08/23/2013 TRANSPERINEAL PLACEMENT NEEDLES INTO PROSTATE FOR INTERSTITIAL RADIOELEMENT W/O CYSTOSCOPY performed by Chu Palomares MD at [facility] ULTRASONIC GUIDE, INTERSTITIAL RADIOELEMENT 08/23/2013 ULTRASONIC GUIDED INTERSTITIAL RADIOELEMENT APPLICATION performed by Chu Palomares MD at [facility] Social History Socioeconomic History Marital status: Spouse name: Nicki Number of children: 3 Years of education: [...] Stability Do you currently live in a retirement or have no steady place to sleep [...] Expected date: 2023 Presence of cardiac pacemaker Follow Up: Return in about 6 months [...] 9:30 AM EDT Office Visit Urology, [facility] [address] [place] [address] Torrey Abdi MD 27 [place] [address] 03/30/2024 2:00 PM EST Office Visit Cardiology [address] [place] [address] Wellington Parrish PA-C [address] [place] [address] 04/04/2024 10:00 AM EST Office Visit Nephrology, [facility] 200 [facility] [place] [address] Darwin Barker MD [address] [facility] [place] [address] 04/11/2024 2:00 PM EST Office Visit Sleep Disorders Ctr [facility] [address] [place] [phone] Magalys Dexter CRNP [address] [place] [address] 05/01/2024 10:40 AM EDT Office Visit Family [address] [place] [phone] Manisha Villa CRNP [address] [place] [address] [place] [address] 07/20/2024 1:00 PM EDT Nurse Only Ancillary [address] [place] [address] [place], Nurse Annual Wellness [address] [place] [address] [place] [address] 07/24/2024 2:20 PM EDT Office Visit Dermatology [address] [place] [address] Bertha Kapoor PA-C [address] [place] [address] [place] [address] 11/27/2024 2:00 PM EDT Office Visit [address] [place] [phone] Anna King MD [address] [place] [address] [place] [id number] Scheduled Orders Name Type Priority Associated Diagnoses Orde r Schedule COMPREHENSIVE METABOLIC PANEL Lab Routine Hypertensive heart and kidney disease with chronic diastolic congestive heart failure and stage 3b chronic kidney disease (HCC) Dyslipidemia, goal LDL below 100 Expected: 2023 (Approximate), Expires: 10/28/2024 LIPID PANEL WITH DIRECT LDL IF TG IS HIGH Lab Routine Dyslipidemia, goal LDL below 100 Expected: 2023, Expires: 10/28/2024 TSH WITH FREE T4 IF INDICATED Lab Routine Acquired hypothyroidism Expected: 2023 (Approximate), Expires: 10/28/2024 CBC WITH WBC DIFFERENTIAL AND ANEMIA REFLEX WORKUP Lab Routine Hypertensive heart and kidney disease with chronic diastolic congestive heart failure and stage 3b chronic kidney disease (HCC) Expected: 2023 (Approximate), Expires: 10/28/2024 Scheduled Procedures Name Priority Associated Diagnoses Date/Ti me COLONOSCOPY FLEXIBLE PROXIMAL DIAGNOSTIC Recall History of colon polyps Health Maintenance Due Date Last Done Comments Colonoscopy 12/17/2020 12/17/2017, 10/2017, 11/09/2014, Additional history exists COVID-19 Vaccine ( season) 2023 03/01/2023, 12/19/2021, 12/10/2020, Additional history exists CKD PHOS USE SMARTSET 10141 01/13/202406/2022, 01/11/2023, 01/10/2023, Additional history exists GFR 01/29/2024 07/30/2023, 05/09, 05/20/2023, Additional history exists Albumin/Creatinine Ratio 03/01/2024 024, 02/13/2022, 10/25/2014 CKD HGB USE SMARTSET 02045 03/01/202403/01, 03/01/2023, 01/15/2023, Additional history exists TSH [...] Discussed due to patient's condition Care Teams Rn Case Manager Hospice Relationship Specialty Start Date End Date Anna King MD [address] [place] [address] [place] [id number] PCP - General Family Medicine 07/24/13 documented as of this encounter
--- OUTSIDE RECORDS SUMMARY | 2024-01-06 09:58 | External Medical Summary | Summary of Care ---
Author Name Unknown Organization [facility] Address [address] [place] [address] Phone [phone] Care Team Providers Care Tree Faller Name Role Phone Anna King MD Primary Care Provide r Reason for Visit * Reason Comments Outpatient Testing Encounter Details Date Type Department Care Team (Late st Contact Info) Description 09/06/2023 11:50 AM EDT Laboratory Laboratory [address] [place] [phone] [place] [id number] Prostate cancer (HCC) Allergies Active Allergy Reactions Criticality Noted Date Comments Niacin 09/20/2002 niaspan-flushing Oxycodone-Acetaminophen 08/18/2014 Propoxyphene Napsylate 03/08/2003 rash documented as of this encounter (statuses as of 09/06/2023) Medications Medication Sig Dispensed Refills Start Date [...] as of this encounter (statuses as of 09/06/2023) Active Problems Problem Noted Date Diagnosed Date [...] 02/26/19 21 Atherosclerotic heart diseas e of [place] coronary artery without angina pectoris 02/27/2020 Pancreas [...] as of this encounter (statuses as of 09/06/2023) Resolved Problems Problem Noted Date Diagnosed Date [...] IIA(T1c, N0, M0, PSA: Less than 10, [place] 7) - Signed by Jace Means MD [...] as of this encounter (statuses as of 09/06/2023) Immunizations Name Administration Dates Next Due COVID-19 [...] No 07/19/2023 Does the household have a mcl[employer] fl[employer] source of income? (Household - for ages [...] 09/14/2023 12:00 PM EDT Office Visit Cardiology [address] [place] [address] Wellington Parrish PA-C [address] [place] [address] 09/15/2023 3:45 PM EDT Office Visit Urology, [facility] 132 [place] [address] Torrey Abdi MD [address] [place] [address] 2023 10:00 AM EDT Office Visit Family Medicine [address] [place] [phone] Anna King MD [address] [place] [address] [place] [address] 02/01/2024 3:00 PM EST Office Visit Sleep Disorders Ctr [facility] [address] [place] [phone] Magalys Dexter CRNP 132 [facility] [place] [address] 03/21/2024 10:00 AM EST Office Visit Nephrology, [facility] [address] [place] [address] Darwin Barker MD [address] [place] [address] 07/20/2024 1:00 PM EDT Nurse Only Ancillary [address] [place] [address] [place], Nurse Annual Wellness [address] [place] [address] [place] [address] 07/24/2024 2:20 PM EDT Office Visit Dermatology [address] [place] [address] Bertha Kapoor PA-C [address] [place] [address] [place] [address] Pending Results Name Type Priority Associated Diagnoses Date /Time PSA Lab Routine Prostate cancer (HCC) 09/06/2023 11:52 AM EDT Scheduled Procedures Name Priority Associated Diagnoses Date/Ti me COLONOSCOPY FLEXIBLE PROXIMAL DIAGNOSTIC Recall History of colon polyps Health Maintenance Due Date Last Done Comments Colonoscopy 12/17/2020 12/17/2017, 10/2017, 11/09/2014, Additional history exists COVID-19 Vaccine (2022- season) 2023 03/01/2023, 12/19/2021, 12/10/2020, Additional history exists Influenza Vaccine (FLU shot) (#1) 2023 10/20/2022, 10/20/2021, 10/24/2020, Additional history exists CKD PHOS USE SMARTSET 59208 01/13/202406/2022, 01/11/2023, 01/10/2023, Additional history exists GFR 01/29/2024 07/30/2023, 05/09, 05/20/2023, Additional history exists Albumin/Creatinine Ratio 03/01/2024 024, 02/13/2022, 10/25/2014 CKD HGB USE SMARTSET 25557 03/01/202403/01, 03/01/2023, 01/15/2023, Additional history exists TSH [...] this encounter Visit Diagnoses Diagnosis Prostate cancer (HCC) Malignant neoplasm of prostate documented in this encounter Advance Directives * Full Code (Latest Code Status on File) Date Activated Date Inactivated Comments 01/04/2023 6:10 PM 01/15/2023 4:20 PM This order reflects the patients wishes and were consensually agreed upon. Question Answer Comments Discussion of Advance Direct marianna occurred with: Not Discussed due to patient's condition Care Teams Tree Faller Relationship Specialty Start Date End Date Anna King MD [address] [place] [address] [place] [phone] PCP - General Family Medicine 07/24/13 documented as of this encounter
--- OUTSIDE RECORDS SUMMARY | 2024-01-06 09:59 | External Medical Summary | Summary of Care ---
Author Name Unknown Organization [facility] Address [address] [facility] [address] Phone [phone] Care Team Providers Care Otolaryngology Physician Name Role Phone Anna King MD Primary Care Provide r Reason for Visit * Reason Onset Date Comments Test Results 08/13/2023 Encounter Details Date Type Department Care Team (Late st Contact Info) Description 08/13/2023 Telephone Cardiology, [facility] [address] [place] [phone] Wellington Parrish PA-C [address] [place] [address] Test Results Allergies Active Allergy Reactions Criticality [...] Drop into both eyes at bedtime. Active documented as of this encounter (statuses [...] 02/26/19 21 Atherosclerotic heart diseas e of [place] coronary artery without angina pectoris 02/27/2020 Pancreas [...] encounter Miscellaneous Notes * Telephone Encounter - Francoise Crocker LPN - 08/13/2023 8:18 AM EDT Sent letter * Telephone Encounter - Francoise Crocker LPN - 08/13/2023 8:13 AM EDT ----- Message from Wellington Parrish sent at 08/11/2023 5:30 PM EDT ----- August 10, 2023 TTE Interpretation Summary (as [...] the aortic valve gradients are relatively unchanged. Echo looks OK. Will review with patient at upcoming appointment. documented in this encounter Plan of Treatment Upcoming Encounters Date Type Department Care Team (Late st Contact Info) Description 09/14/2023 12:00 PM EDT Office Visit Cardiology [address] [place] [address] Wellington Parrish PA-C 132 [facility] [place] [address] 09/15/2023 3:45 PM EDT Office Visit Urology, [facility] 132 [facility] [place] [address] Torrey Abdi MD [address] [place] [address] [place] [address] 2023 10:00 AM EDT Office Visit Family Medicine [address] [place] [phone] Anna King MD [address] [place] [address] [place] [address] 02/01/2024 3:00 PM EST Office Visit [facility] [place] [phone] Magalys Dexter, JHONNY [address] [place] [address] 03/21/2024 10:00 AM EST Office Visit Nephrology, [facility] 200 [facility] [place] [address] Darwin Barker MD 200 [facility] [place] [address] 07/20/2024 1:00 PM EDT Nurse Only Ancillary [address] [place] [address] [place], Nurse Annual [address] [place] [address] 07/24/2024 2:20 PM EDT Office Visit Dermatology [address] [place] [address] Bertha Kapoor PA-C [address] [place] [address] [place] [phone] Scheduled Procedures Name Priority Associated Diagnoses Date/Ti me COLONOSCOPY FLEXIBLE PROXIMAL DIAGNOSTIC Recall History of colon polyps Health Maintenance Due Date Last Done Comments Colonoscopy 12/17/2020 12/17/2017, 10/2017, 11/09/2014, Additional history exists COVID-19 Vaccine ( season) 2023 03/01/2023, 12/19/2021, 12/10/2020, Additional history exists Influenza Vaccine (FLU shot) (#1) 2023 10/20/2022, 10/20/2021, 10/24/2020, Additional history exists CKD PHOS USE SMARTSET 29508 01/13/202406/2022, 01/11/2023, 01/10/2023, Additional history exists GFR 01/29/2024 07/30/2023, 05/09, 05/20/2023, Additional history exists Albumin/Creatinine Ratio 03/01/2024 024, 02/13/2022, 10/25/2014 CKD HGB USE SMARTSET 92926 03/01/202403/01, 03/01/2023, 01/15/2023, Additional history exists TSH [...] Discussed due to patient's condition Care Teams Otolaryngology Physician Relationship Specialty Start Date End Date Anna King MD [address] [place] [address] [place] [phone] PCP - General Family Medicine 07/24/13 documented as of this encounter
--- OUTSIDE RECORDS SUMMARY | 2024-01-06 09:59 | External Medical Summary ---
Author Name Unknown Address Unknown Organization [id number]:[facility] [place] [address] [place] [address] Laboratory Report Ordering Provider Test Date Status CONRADO PATTERSON 08/04/2023 14:19:37 Final Observation Date Value Abnormality Reference (Units ) Status MYCODE SPECIMEN-SST 08/04/2023 14:19:37 Freezing of extracted DNA, whole blood and/or serum. Final Performing Location LABORATORY C - [address] [place] [address]
--- OUTSIDE RECORDS SUMMARY | 2024-01-06 09:59 | External Medical Summary ---
Author Name Unknown Address Unknown Organization K01[place] [place] [address] [place] [address] Laboratory Report Ordering Provider Test Date Status CONRADO PATTERSON 08/04/2023 14:19:37 Final Observation Date Value Abnormality Reference (Units ) Status MYCODE SPECIMEN-SST 08/04/2023 14:19:37 Freezing of extracted DNA, whole blood and/or serum. Final Performing Location LABORATORY C - [address] [place] [address]
--- OUTSIDE RECORDS SUMMARY | 2024-01-06 09:59 | External Medical Summary | Summary of Care ---
Author Name Unknown Organization [facility] [address] [facility] [address] Phone [phone] Care Team Providers Care Chief Writer Name Role Phone Anna King MD Primary Care Provide r Reason for Visit * Reason Onset Date Comments Medication Refill 08/13/2023 Encounter Details Date Type Department Care Team (Late st Contact Info) Description 08/13/2023 Refill Cardiology, [facility] [address] [place] [address] Wellington Parrish PA-C [address] [place] [address] Allergies Active Allergy Reactions Criticality Noted Date [...] 02/26/19 21 Atherosclerotic heart diseas e of [place] coronary artery without angina pectoris 02/27/2020 Pancreas [...] encounter Miscellaneous Notes * Telephone Encounter - Ayleen Lam inside trucker - 08/13/2023 3:30 PM EDT Transferred to specialty Thank you for your assistance Ayleen Lam Special Needs Babysitter II [facility] 08/13/2023,3:30 PM documented in this encounter Plan of Treatment Upcoming Encounters Date Type Department Care Team (Late st Contact Info) Description 09/14/2023 12:00 PM EDT Office Visit Cardiology [address] [place] [address] Wellington Parrish PA-C [address] [place] [address] 09/15/2023 3:45 PM EDT Office Visit Urology, [facility] [place] [address] Torrey Abdi MD [address] [place] [address] 2023 10:00 AM EDT Office Visit Family Medicine [address] [place] [phone] Anna King MD [address] [place] [address] [place] [address] 02/01/2024 3:00 PM EST Office Visit Sleep Disorders Ctr [facility] [address] [facility] [place] [phone] Magalys Dexter CRNP [address] [facility] [place] [address] 03/21/2024 10:00 AM EST Office Visit Nephrology, Tom Nunez [address] [place] [address] Darwin Barker MD [address] [place] [address] 07/20/2024 1:00 PM EDT Nurse Only Ancillary [address] [place] [address] Candice, Nurse Annual [address] [place] [address] 07/24/2024 2:20 PM EDT Office Visit Dermatology [address] [place] [address] Bertha Kapoor PA-C [address] [place] [address] [place] [address] Scheduled Procedures Name Priority Associated Diagnoses Date/Ti me COLONOSCOPY FLEXIBLE PROXIMAL DIAGNOSTIC Recall History of colon polyps Health Maintenance Due Date Last Done Comments Colonoscopy 12/17/2020 12/17/2017, 10/2017, 11/09/2014, Additional history exists COVID-19 Vaccine ( season) 2023 03/01/2023, 12/19/2021, 12/10/2020, Additional history exists Influenza Vaccine (FLU shot) (#1) 2023 10/20/2022, 10/20/2021, 10/24/2020, Additional history exists CKD PHOS USE SMARTSET 61040 01/13/202406/2022, 01/11/2023, 01/10/2023, Additional history exists GFR 01/29/2024 07/30/2023, 0410/2023, 05/20/2023, Additional history exists Albumin/Creatinine Ratio 03/01/2024 024, 02/13/2022, 10/25/2014 CKD HGB USE SMARTSET 48373 03/01/202403/01, 03/01/2023, 01/15/2023, Additional history exists TSH [...] Discussed due to patient's condition Care Teams Chief Writer Relationship Specialty Start Date End Date Anna King MD [address] [place] [address] [place] [phone] PCP - General Family Medicine 07/24/13 documented as of this encounter
--- OUTSIDE RECORDS SUMMARY | 2024-01-06 09:59 | External Medical Summary | Summary of Care ---
Author Name Unknown Organization [facility] Address [address] [place] [address] Phone [phone] Care Team Providers Care Refrigeration Operator Name Role Phone Anna King MD Primary Care Provide r Encounter Details Date Type Department Care Team (Late st Contact Info) Description 08/02/2023 Population Health External Data Unspecified Department Allergies Active Allergy Reactions Criticality Noted Date Comments Niacin 09/20/2002 niaspan-flushing Oxycodone-Acetaminophen 08/18/2014 Propoxyphene Napsylate 03/08/2003 rash documented as of this encounter (statuses as of 08/03/2023) Medications Medication Sig Dispensed Refills Start Date [...] Active Additional Information Patient not taking.Reported on 07/27/2023 Acetaminophen 325 MG Oral Tablet (Tylenol) Take [...] as of this encounter (statuses as of 08/03/2023) Active Problems Problem Noted Date Diagnosed Date [...] 02/26/19 21 Atherosclerotic heart diseas e of [place] coronary artery without angina pectoris 02/27/2020 Pancreas [...] as of this encounter (statuses as of 08/03/2023) Resolved Problems Problem Noted Date Diagnosed Date [...] as of this encounter (statuses as of 08/03/2023) Immunizations Name Administration Dates Next Due COVID-19 [...] Care Team (Late st Contact Info) Description 08/04/2023 4:20 PM EDT Office Visit Family Medicine [address] [place] [phone] Enma Sanchez MD [address] [place] [address] [place] [address] 08/10/2023 1:00 PM EDT Cardiac Studies Cardiac Studies, [facility] [address] [place] [address] 09/14/2023 12:00 PM EDT Office Visit Cardiology [address] [place] [address] Wellington Parrish PAWaylonC [address] [address] 09/15/2023 3:45 PM EDT Office Visit Urology, [facility] [address] [place] [address] Torrey Abdi MD [address] [place] [address] [place] [address] 2023 10:00 AM EDT Office Visit Family Medicine [address] [place] [phone] Anna iKng MD [address] [place] [address] [place] [address] 03/21/2024 10:00 AM EST Office Visit Nephrology, [facility] [address] [place] [address] Darwin Barker MD [address] [place] [address] 07/20/2024 1:00 PM EDT Nurse Only Ancillary [address] [place] [address] [place], Nurse Annual [address] [place] [address] 07/24/2024 2:20 PM EDT Office Visit Dermatology [address] [place] [address] Bertha Kapoor PA-C [address] [place] [address] [place] [address] Scheduled Procedures Name Priority Associated Diagnoses Date/Ti me COLONOSCOPY FLEXIBLE PROXIMAL DIAGNOSTIC Recall History of colon polyps Health Maintenance Due Date Last Done Comments Colonoscopy 12/17/2020 12/17/2017, 10/2017, 11/09/2014, Additional history exists COVID-19 Vaccine ( season) 2023 03/01/2023, 12/19/2021, 12/10/2020, Additional history exists CKD PHOS USE SMARTSET 19004 01/13/202406/2022, 01/11/2023, 01/10/2023, Additional history exists GFR 01/29/2024 07/30/2023, 05/09, 05/20/2023, Additional history exists Albumin/Creatinine Ratio 03/01/2024 024, 02/13/2022, 10/25/2014 CKD HGB USE SMARTSET 16032 03/01/202403/01, 03/01/2023, 01/15/2023, Additional history exists TSH 05/10/2024 05/11/2023, 04/2022, 01/09/2023, Additional history exists Depression Monitoring 07/18/2024 07/19/2023 DTaP,Tdap,and Td Vaccines (2 - Td or Tdap) 06/02/2027 06/01/2017, 12/14/2007 Hepatitis B Completed 11/11/2011, 03/2011, 05/13/2011 Pneumococcal Vaccine: 65+ Years Completed 04/17/2014, 06/13/2008 Zoster Vaccines Completed 05/03/2020, 05/2019, 10/26/2019, Additional history exists Influenza Vaccine (FLU shot) [...] Discussed due to patient's condition Care Teams Refrigeration Operator Relationship Specialty Start Date End Date Anna King MD [address] [place] [address] [place] [phone] PCP - General Family Medicine 07/24/13 documented as of this encounter
--- OUTSIDE RECORDS SUMMARY | 2024-01-06 09:59 | External Medical Summary | Summary of Care ---
Author Name Unknown Organization [facility] Address [address] [place] [address] Phone [phone] Care Team Providers Care Pen Tender Name Role Phone Anna King MD Primary Care Provide r Reason for Visit * Reason Comments Outpatient Testing Encounter Details Date Type Department Care Team (Late st Contact Info) Description 08/04/2023 2:20 PM EDT Laboratory Laboratory [address] [place] [phone] [place] [address] Starr[employer] Other*[id number] Allergies Active Allergy Reactions Criticality Noted Date Comments Niacin 09/20/2002 niaspan-flushing Oxycodone-Acetaminophen 08/18/2014 Propoxyphene Napsylate 03/08/2003 rash documented as of this encounter (statuses as of 08/04/2023) Medications Medication Sig Dispensed Refills Start Date [...] as of this encounter (statuses as of 08/04/2023) Active Problems Problem Noted Date Diagnosed Date [...] 02/26/19 21 Atherosclerotic heart diseas e of [place] coronary artery without angina pectoris 02/27/2020 Pancreas [...] as of this encounter (statuses as of 08/04/2023) Resolved Problems Problem Noted Date Diagnosed Date [...] as of this encounter (statuses as of 08/04/2023) Immunizations Name Administration Dates Next Due COVID-19 [...] 4:20 PM EDT Office Visit Family Medicine [facility] [place] [phone] Enma Sanchez MD [address] [place] [address] [place] [phone] Spasm of muscle* 08/10/2023 1:00 PM EDT Cardiac Studies Cardiac Studies, [facility] [address] [place] [address] 09/14/2023 12:00 PM EDT Office Visit Cardiology [address] [place] [address] Wellington Parrish PA-C [address] [place] [address] 09/15/2023 3:45 PM EDT Office Visit Urology, [facility] [address] [place] [address] Torrey Abdi MD [address] [facility] [place] [address] 2023 10:00 AM EDT Office Visit Family Medicine [address] [place] [phone] Anna King MD [address] [place] [address] [place] [address] 03/21/2024 10:00 AM EST Office Visit Nephrology, [facility] [address] [place] [address] Darwin Barker MD [address] [place] [address] 07/20/2024 1:00 PM EDT Nurse Only Ancillary [address] [place] [address] [place], Nurse Annual [address] [place] [address] 07/24/2024 2:20 PM EDT Office Visit Dermatology [address] [place] [address] Bertha Kapoor PA-C [address] [place] [address] [place] [address] Pending Results Name Type Priority Associated Diagnoses Date /Time MYCODE SUBSEQUENT ADULT Lab Routine [employer] Other*[id number] 08/04/2023 2:19 PM EDT MYCODE SST1 Lab Routine [employer] Other*[id number] 08/04/2023 2:19 PM EDT MYCODE SST2 Lab Routine [employer] Other*[id number] 08/04/2023 2:19 PM EDT Scheduled Procedures Name Priority Associated Diagnoses Date/Ti me COLONOSCOPY FLEXIBLE PROXIMAL DIAGNOSTIC Recall History of colon polyps Health Maintenance Due Date Last Done Comments Colonoscopy 12/17/2020 12/17/2017, 10/2017, 11/09/2014, Additional history exists COVID-19 Vaccine ( season) 2023 03/01/2023, 12/19/2021, 12/10/2020, Additional history exists CKD PHOS USE SMARTSET 40113 01/13/202406/2022, 01/11/2023, 01/10/2023, Additional history exists GFR 01/29/2024 07/30/2023, 05/09, 05/20/2023, Additional history exists Albumin/Creatinine Ratio 03/01/2024 024, 02/13/2022, 10/25/2014 CKD HGB USE SMARTSET 16466 03/01/202403/01, 03/01/2023, 01/15/2023, Additional history exists TSH [...] as of this encounter Visit Diagnoses Diagnosis Spasm of muscle- Primary [employer] Other*[id number] documented in this encounter Advance Directives * Full Code (Latest Code Status on File) Date Activated Date Inactivated Comments 01/04/2023 6:10 PM 01/15/2023 4:20 PM This order reflects the patients wishes and were consensually agreed upon. Question Answer Comments Discussion of Advance Direct marianna occurred with: Not Discussed due to patient's condition Care Teams Pen Tender Relationship Specialty Start Date End Date Anna King MD [address] [place] [address] [place] [address] PCP - General Family Medicine 07/24/13 documented as of this encounter
--- OUTSIDE RECORDS SUMMARY | 2024-01-06 09:59 | External Medical Summary | Summary of Care ---
Author Name Unknown Organization [facility] Address [address] [place] [address] Phone [phone] Care Team Providers Care Net Web Application Developer Name Role Phone Anna King MD Primary Care Provide r Reason for Visit * Reason Comments Re-Check Encounter Details Date Type Department Care Team (Late st Contact Info) Description 08/04/2023 4:20 PM EDT Office Visit Family Medicine [address] [phone] Enma Sanchez MD [address] [place] [address] [place] [phone] Spasm of muscle* Allergies Active Allergy Reactions Criticality Noted Date [...] 02/26/19 21 Atherosclerotic heart diseas e of [place] coronary artery without angina pectoris 02/27/2020 Pancreas [...] Sign Reading Time Taken Comments Blood Pressure 104/70 08/04/2023 1:56 PM EDT Pulse 75 08/04/2023 1:56 PM EDT Temperature 36.1 C (96.9 F) 08/04/2023 1:56 PM ED T Respiratory Rate - - Oxygen Saturation 94% 08/04/2023 1:56 PM EDT Inhaled Oxygen Concentration - - Weight 99 kg (218 lb 3.2 oz) 08/04/2023 1:56 PM EDT Height - - Body Mass Index 29.59 07/19/2023 1:22 PM EDT documented in this encounter Progress Notes * Enma Sanchez MD - 08/04/2023 1:46 PM EDT Subjective: HPI: Cristhian May is a 82 year old male with hx of Afib on eliquis, Tachy-Bipin syndrome s/p pacemaker, Mild Aortic Stenosis, Restrictive lung disease on 1L of O2, RUDY on BiPAP, CKD III, HTN, HLD, BPH, Pancreatic cyst seen for Pt did have to take extra dose of torsemide recently for weight gain - repeat BMP showed stable Cr and normal K - currently on torsemide 40mg daily and Aldactone 12.5mg daily - swelling has been stable B/L thigh twitching - L>R - had it for a long time - but it has been getting worse and causing pain - sometimes cramping - taking magnesium 400mg qhs - denied any erythema but have chronic leg swelling Patient Active Problem List Diagnosis Hip joint [...] stress disorder, chronic Atherosclerotic heart disease of [place] coronary artery without angina pectoris Other schizophrenia [...] BREAKFAST OR OTHER MEDICATIONS) 90 Tablet 2 Sodium Chloride 3 % Inhalation Nebulization Solution Inhale 3 mL via nebulizer in the morning and 3mL before bedtime. 180 mL 0 Metoprolol Tartrate 25 MG Oral Tablet (Lopressor) Take 1 Tablet by mouth in the morning and 1 Tablet before bedtime. 180 Tablet 1 Apixaban 2.5 MG Oral Tablet (Eliquis) Take 1 Tablet by mouth in the morning and 1 Tablet before bedtime. 180 Tablet 1 rOPINIRole HCl 1 MG Oral Tablet Take 1 Tablet by mouth at bedtime. With food. For restless legs 90 Tablet 1 Acetaminophen 325 MG Oral Tablet [...] mouth in the morning. 180 Tablet 1 dilTIAZem HCl 30 MG Oral Tablet (Cardizem) Take 1 Tablet by mouth in the morning and 1 Tablet at noon and 1 Tablet before bedtime. 90 Tablet 2 cycloSPORINE 0.05 % Ophthalmic Emulsion (Restasis) Instill 1 Drop into both eyes at bedtime. Albuterol Sulfate (2.5 MG/3ML) 0.083% Inhalation Nebulization [...] 3 BPH without obstruction/lower urinary tract symptoms Bronchiectasis ([facility]) Chronic kidney disease, stage 3b ([facility]) 03/24/2021 Per CKD protocol Depressive disorder, not elsewhere classified Generalized osteoarthritis HTN, goal below 140/90 Mixed dyslipidemia RUDY treated with BiPAP 04/21/2018 Other schizophrenia ([facility]) 05/16/2021 Persistent atrial fibrillation ([facility]) 05/26/2016 Post-traumatic stress disorder, chronic 02/27/2020 Prostate cancer ([facility]) Logan score 7 Restrictive lung disease 01/2016 moderate RHF (right heart failure) ([facility]) 06/12/2016 Severe episode of recurrent major depressive disorder, with psychotic features ([facility]) 08/18/2017 Sleep apnea, obstructive Tachy-bipin syndrome ([facility]) 08/10/2017 Past Surgical History: Procedure Laterality Date COLONOSCOPY 2007 Dr. Machado--umremarkable COLONOSCOPY 2000 Jeannette--polyps COLONOSCOPY, DIAGNOSTIC (RECTUM) 11/09/2014 hyperplastic polyps, suboptimal prep, repeat 3 yrs/COLONOSCOPY FLEXIBLE PROXIMAL DIAGNOSTIC performed by Digna Ridley DO at [facility] COLONOSCOPY, DIAGNOSTIC (RECTUM) 12/17/2017 hyperplastic polyp, repeat 3 yrs/COLONOSCOPY FLEXIBLE PROXIMAL DIAGNOSTIC performed by Digna Ridley DO at [facility] CYSTOSCOPY 09/03/2014 EGD, FLEXIBLE, BALLOON DILATION >=30MM N/A 01/08/2023 ESOPHAGOGASTRODUODENOSCOPY (EGD), FLEXIBLE, TRANSORAL: BALLOON DILATION (30 MM OR MORE) performed by Boston Bennett MD [place] [facility] [place], FLEXIBLE, DIAGNOSTIC N/A 01/07/2023 ESOPHAGOGASTRODUODENOSCOPY (EGD), FLEXIBLE, TRANSORAL, DIAGNOSTIC performed by Bosotn Bennett MD at [facility] [place], FLEXIBLE, DIAGNOSTIC N/A 01/06/2023 ESOPHAGOGASTRODUODENOSCOPY (EGD), FLEXIBLE, TRANSORAL, DIAGNOSTIC performed by Boston Bennett MD at [facility] [place], FLEXIBLE, DIAGNOSTIC N/A 12/15/2022 normal/EGD/[place] EGD, W/ENDOSCOPIC US 08/07/2019 pseudocysts, repeat 3 mo / ESOPHAGOGASTRODUODENOSCOPY (EGD), FLEXIBLE, TRANSORAL, ENDOSCOPIC ULTRASOUND performed by Kiran Lucia MD at [facility] EGD, W/ENDOSCOPIC US 01/15/2020 pancreatic mucinous cyst / ESOPHAGOGASTRODUODENOSCOPY (EGD), FLEXIBLE, TRANSORAL, ENDOSCOPIC ULTRASOUND performed by Kiran Lucia MD at [facility] INFORMATION 1971 vasectomy down in [facility] INTERSTITIAL RADIATION APPLICATION, COMPLEX 08/23/2013 INSTERSTITIAL RADIATION SOURCE APPLICATION COMPLEX performed by Chu Palomares MD at [facility] LUMBAR SPINE FUSION, POST INTERBODY N/A 12/03/2022 [...] CYSTOSCOPY performed by Chu Palomares MD at [facility] ULTRASONIC GUIDE, INTERSTITIAL RADIOELEMENT 08/23/2013 ULTRASONIC GUIDED INTERSTITIAL RADIOELEMENT APPLICATION performed by Chu Palomares MD at [facility] Review of patient's allergies indicates: Allergen Reactions Niacin niaspan-flushing Oxycodone-Acetaminophen Propoxyphene Napsylate rash Family History Problem Relation Name Age of Onset Other (Blood clot) Brother Renal Hx Brother Renal failure Diabetes Daughter Cancer Daughter breast Social History Tobacco Use Smoking status: Former Current packs/day: 0.00 Average packs/day: 1.5 packs/day for 24.0 years (36.0 ttl pk-yrs) Types: Cigarettes Start date: 02/08/1954 Quit date: 02/08/1978 Years since quittin.5 Smokeless tobacco: Former Types: Snuff, Chew Quit date: 1969 Substance Use Topics Alcohol use: Not Currently Vaping/E-Cigarette Use Vaping/E-Cigarette Use Never User Vaping/E-Cigarette Substances Vaping/E-Cigarette Devices ROS: -Per HPI OBJECTIVE: BP 104/70 | Pulse 75 | Temp 36.1 C (96.9 F) | Wt 99 kg (218 lb 3.2 oz) | SpO2 94% | BMI 29.59 kg/m | BSA 2.24 m PHYSICAL EXAM: Vitals are reviewed General:. NAD, well developed HEENT:. Normal Conjunctiva, EOMI MSK: no swelling or erythema of the thighs, no TTP of the thigh Psych:. AAOx3, normal affect ASSESSMENT/PLAN: I suspect symptoms are likely due to dehydration + meds SE - advised the pt to increase the water intake to 60 oz of water - recommended warm compress prior to bed - Mg level today Spasm of muscle (Primary) - MAGNESIUM I spent a total of 30-39 minutes (exact time 32 mins) on the date of service in preparation, delivery, and documentation of the care provided to Cristhian May excluding any time spent in the performance of separately billed services. Enma Sanchez MD Family medicine, [place] [phone] documented in this encounter Nursing Notes * Codi Roberts CMA - 08/04/2023 1:53 PM EDT He is here today about muscle twitching in his left thigh that is causing soreness and disturbing his sleeping. documented in this encounter Plan of Treatment Upcoming Encounters Date Type Department Care Team (Late st Contact Info) Description 08/10/2023 1:00 PM EDT Cardiac Studies [facility], [facility] [place] [address] 09/14/2023 12:00 PM EDT Office Visit Cardiology [address] [place] [address] Wellington Parrish PA-C [address] [place] [address] 09/15/2023 3:45 PM EDT Office Visit Urology, [facility] [address] [place] [address] Torrey Abdi MD 27 [facility] [place] [address] 2023 10:00 AM EDT Office Visit Family Medicine [address] [place] [phone] Anna King MD [address] [place] [address] [place] [address] 03/21/2024 10:00 AM EST Office Visit Nephrology, [facility] [address] [facility] [place] [address] Darwin Barker MD [address] [place] [address] 07/20/2024 1:00 PM EDT Nurse Only Ancillary [address] [place] [address] [place], Nurse Annual [address] [place] [address] 07/24/2024 2:20 PM EDT Office Visit Dermatology [address] [place] [address] Bertha Kapoor PA-C [address] [place] [address] [place] [phone] Pending Results Name Type Priority Associated Diagnoses Date /Time MAGNESIUM Lab Routine Spasm of muscle 08/04/2023 2:19 PM EDT Scheduled Procedures Name Priority Associated Diagnoses Date/Ti me COLONOSCOPY FLEXIBLE PROXIMAL DIAGNOSTIC Recall History of colon polyps Health Maintenance Due Date Last Done Comments Colonoscopy 12/17/2020 12/17/2017, 10/2017, 11/09/2014, Additional history exists COVID-19 Vaccine ( season) 2023 03/01/2023, 12/19/2021, 12/10/2020, Additional history exists CKD PHOS USE SMARTSET 51639 01/13/202406/2022, 01/11/2023, 01/10/2023, Additional history exists GFR 01/29/2024 07/30/2023, 05/09, 05/20/2023, Additional history exists Albumin/Creatinine Ratio 03/01/2024 024, 02/13/2022, 10/25/2014 CKD HGB USE SMARTSET 09934 03/01/202403/01, 03/01/2023, 01/15/2023, Additional history exists TSH [...] Visit Diagnoses Diagnosis Spasm of muscle- Primary documented in this encounter Advance Directives * Full Code (Latest Code Status on File) Date Activated Date Inactivated Comments 01/04/2023 6:10 PM 01/15/2023 4:20 PM This order reflects the patients wishes and were consensually agreed upon. Question Answer Comments Discussion of Advance Direct marianna occurred with: Not Discussed due to patient's condition Care Teams Net Web Application Developer Relationship Specialty Start Date End Date Anna King MD [address] [place] [address] [place] [phone] PCP - General Family Medicine 07/24/13 documented as of this encounter"
--- OUTSIDE RECORDS SUMMARY | 2024-01-06 09:59 | External Medical Summary ---
Author Name Unknown Address Unknown Organization K01:[facility] [facility][note 3] [address] [facility] [address] Laboratory Report Ordering Provider Test Date Status GHASSAN MARCELINO 07/30/2023 10:36:45 Karoline l Observation Date Value Abnormality Reference (Units ) Status BUN 07/30/2023 10:36:45 28 Above high normal 6-20 (mg/dL) Final Creatinine 07/30/2023 10:36:45 1.6 Above high normal 0.6-1.2 (mg/dL) Final Glomerular filtration rate/1.73 sq M.predicted [Volume Rate/Area] in Serum, Plasma or Blood by Creatinine-based formula (CKD-EPI) 07/30/2023 10:36:45 42 Below low normal >=60 (mL/min) Final eGFR is calculated based on the CKD-EPI 2020 equation Sodium 07/30/2023 10:36:45 140 135-146 (m mol/L) Final Potassium 07/30/2023 10:36:45 4.7 3.5-5.1 (m mol/L) Final Cl 07/30/2023 10:36:45 94 Below low normal 98- 107 (mmol/L) Final CO2 07/30/2023 10:36:45 33 Above high normal 22 -32 (mmol/L) Final Anion gap 07/30/2023 10:36:45 13 7-15 (mmol /L) Final Glucose 07/30/2023 10:36:45 91 70-120 (mg /dL) Final Calcium 07/30/2023 10:36:45 9.7 8.4-10.2 ( mg/dL) Final Performing Location [facility] [place] [address] [facility] [address]
--- OUTSIDE RECORDS SUMMARY | 2024-01-06 09:59 | External Medical Summary | Summary of Care ---
Author Name Unknown Organization [facility] Address [address] [place] [address] Phone [phone] Care Team Providers Care Social Sciences Instructor Name Role Phone Anna King MD Primary Care Provide r Reason for Visit * Reason Comments Outpatient Testing Encounter Details Date Type Department Care Team (Late st Contact Info) Description 07/30/2023 10:40 AM EDT Laboratory Laboratory [address] [place] [phone] [facility] [address] [place] [id number] Chronic heart failure with preserved ejection fraction (HCC) Allergies Active Allergy Reactions Criticality Noted Date Comments Niacin 09/20/2002 niaspan-flushing Oxycodone-Acetaminophen 08/18/2014 Propoxyphene Napsylate 03/08/2003 rash documented as of this encounter (statuses as of 07/30/2023) Medications Medication Sig Dispensed Refills Start Date [...] as of this encounter (statuses as of 07/30/2023) Active Problems Problem Noted Date Diagnosed Date [...] chronic 02/26/19 Atherosclerotic heart diseas e of [place] coronary artery without angina pectoris 02/27/2020 [...] as of this encounter (statuses as of 07/30/2023) Resolved Problems Problem Noted Date Diagnosed Date [...] as of this encounter (statuses as of 07/30/2023) Immunizations Name Administration Dates Next Due COVID-19 [...] 4:20 PM EDT Office Visit Family Medicine [facility] [address] [place] [address] [place] [phone] Enma Sanchez MD [address] [place] [address] [place] [id number] 08/10/2023 1:00 PM EDT Cardiac Studies Cardiac Studies, [address] [place] [address] 09/14/2023 12:00 PM EDT Office Visit Cardiology [address] [place] [id number] Wellington Parrish [facility] [place] [address] 09/15/2023 3:45 PM EDT Office Visit [facility], [facility] [place] [address] Torrey Abdi MD 27 [facility] [address] [place] [address] 2023 10:00 AM EDT Office Visit Family Medicine [address] [place] [phone] Anna King MD [address] [place] [address] [place] [id number] 03/21/2024 10:00 AM EST Office Visit Nephrology, [facility] [address] [place] [address] Darwin Barker MD [address] [place] [address] 07/20/2024 1:00 PM EDT Nurse Only Ancillary [address] [place] [address] [place], Nurse Annual [address] [place] [id number] 07/24/2024 2:20 PM EDT Office Visit Dermatology [address] [place] [address] Bertha Kapoor PA-C [address] [place] [address] [place] [id number] Pending Results Name Type Priority Associated Diagnoses Date /Time BASIC METABOLIC PANEL Lab Routine Chronic heart failure with preserved ejection fraction (HCC) 07/30/2023 10:36 AM EDT Scheduled Procedures Name Priority Associated Diagnoses Date/Ti me COLONOSCOPY FLEXIBLE PROXIMAL DIAGNOSTIC Recall History of colon polyps Health Maintenance Due Date Last Done Comments Colonoscopy 12/17/2020 12/17/2017, 10/2017, 11/09/2014, Additional history exists COVID-19 Vaccine ( season) 2023 03/01/2023, 12/19/2021, 12/10/2020, Additional history exists GFR 11/27/2023 05/28/2023, 05/09, 05/11/2023, Additional history exists CKD PHOS USE SMARTSET 20827 01/13/202406/2022, 01/11/2023, 01/10/2023, Additional history exists Albumin/Creatinine Ratio 03/01/2024 024, 02/13/2022, 10/25/2014 CKD HGB USE SMARTSET 10302 03/01/202403/01, 03/01/2023, 01/15/2023, Additional history exists TSH [...] of this encounter Visit Diagnoses Diagnosis Chronic heart failure with preserved ejection fraction (HCC) documented in this encounter Advance Directives * Full Code (Latest Code Status on File) Date Activated Date Inactivated Comments 01/04/2023 6:10 PM 01/15/2023 4:20 PM This order reflects the patients wishes and were consensually agreed upon. Question Answer Comments Discussion of Advance Direct marianna occurred with: Not Discussed due to patient's condition Care Teams Social Sciences Instructor Relationship Specialty Start Date End Date Anna King MD [address] [place] [address] [place] [id number] PCP - General Family Medicine 07/24/13 documented as of this encounter
--- OUTSIDE RECORDS SUMMARY | 2024-01-06 09:59 | External Medical Summary | Summary of Care ---
Author Name Unknown Organization [facility] Address [address] [place] [address] Phone [phone] Care Team Providers Care Electronic Coils Supervisor Name Role Phone Anna King MD Primary Care Provide r Reason for Visit * Reason Onset Date Comments Update 07/26/2023 Weight Increase 07/26/2023 Encounter Details Date Type Department Care Team (Late st Contact Info) Description 07/26/2023 Telephone Family Medicine [address] [phone] Anna King MD [address] [place], [place] [address] [id number] Update; Weight Increase Allergies Active Allergy Reactions Criticality Noted Date Comments Niacin 09/20/2002 niaspan-flushing Oxycodone-Acetaminophen 08/18/2014 Propoxyphene Napsylate 03/08/2003 rash documented as of this encounter (statuses as of 07/29/2023) Medications Medication Sig Dispensed Refills Start Date [...] before bedtime. 90 Tablet 2 06/07/2023 Active documented as of this encounter (statuses as of 07/29/2023) Active Problems Problem Noted Date Diagnosed Date [...] 02/26/19 21 Atherosclerotic heart diseas e of [place] coronary artery without angina pectoris 02/27/2020 Pancreas [...] as of this encounter (statuses as of 07/29/2023) Resolved Problems Problem Noted Date Diagnosed Date [...] IIA(T1c, N0, M0, PSA: Less than 10, [place] 7) - Signed by Jace Means MD [...] as of this encounter (statuses as of 07/29/2023) Immunizations Name Administration Dates Next Due COVID-19 [...] 07/19/2023 Does the household have a [facility] source [facility] income? (Household - for [...] encounter Miscellaneous Notes * Telephone Encounter - Enma Sanchez MD - 07/29/2023 11:02 AM EDT Recommend BMP and clinic visit * Telephone Encounter - Keara Medina LPN - 07/28/2023 10:13 AM EDT Please see below message from 07/25 Pt calling with update and addtnl concern today After dosing self with Torsemide 20 mg 4 tabs on 07/25 his weight did go down to 211.2 but today back to 214.3 He again self dosed with Torsemide 20 mg 4 tabs this morning He denies orthopnea or any increase in his shortness of breath Lower leg edema is at his baseline and unchanged Last BM yesterday Urinating well and hydrating as well He is reporting today for "years" he has had "involuntary" muscle twitching of outer aspect of L thigh. He states it is visible to eye Lasts seconds but is off and on constant all day as well as painful. Muscle is sore d/t this Using Magnesium 400 mg HS for this but not really helping The muscle motion wakes him up at night and is only in his thigh Please advise Appt ? Labs ? Thank you * Telephone Encounter - Keara Medina LPN - 07/26/2023 9:32 AM EDT [facility] for IVR and weight ASSESSMENT: Spoke to patient Today's weight 214.1 Usual weight range 210-211 # Also slight increase in lower leg edema He reports went to a picnic yesterday and did not take his daily Torsemide dose He skipped yesterday's dose altogether He got up this morning and has already taken "double dose" Took Torsemide 20 mg 4 tabs He states was told that could do that as need for weight gain or increase in symptoms Denies acute dyspnea, change in breathing or orthopnea Bowels moved this morning He feels that did not urinate as much yesterday as usual but did not take his diuretic RECOMMENDATION: Discussion with patient Will update PCP Will watch for weight transmission tomorrow morning for response to his increase in Torsemide dose today Advised to call with any red flags Provided my direct contact information for any needs in interim documented in this encounter Plan of Treatment Upcoming Encounters Date Type Department Care Team (Late st Contact Info) Description 08/10/2023 1:00 PM EDT Cardiac Studies Cardiac Studies, [facility] [address] [place] [address] 09/14/2023 12:00 PM EDT Office Visit Cardiology [address] [place] [address] Wellington Parrish PA-C [address] [place] [address] 09/15/2023 3:45 PM EDT Office Visit [facility], [facility] [place] [address] Torrey Abdi MD 27 [facility] [address] [place] [address] 2023 10:00 AM EDT Office Visit Family Medicine [address] [place] [phone] Anna King MD [address] [place] [address] [place] [id number] 03/21/2024 10:00 AM EST Office Visit Nephrology, [facility] [place] [address] Darwin Barker MD [address] [place] [address] 07/20/2024 1:00 PM EDT Nurse Only Ancillary [address] [place] [address] [place], Nurse Annual [facility] [address] [place] [address] [place] [id number] 07/24/2024 2:20 PM EDT Office Visit Dermatology [address] [place] [address] Bertha Kapoor PA-C [address] [place] [address] [place] [id number] Scheduled Orders Name Type Priority Associated Diagnoses Orde r Schedule BASIC METABOLIC PANEL Lab Routine Chronic heart failure with preserved ejection fraction (HCC) Expected: 07/29/2023, Expires: 07/28/2024 Scheduled Procedures Name Priority Associated Diagnoses Date/Ti me COLONOSCOPY FLEXIBLE PROXIMAL DIAGNOSTIC Recall History of colon polyps Health Maintenance Due Date Last Done Comments Colonoscopy 12/17/2020 12/17/2017, 10/2017, 11/09/2014, Additional history exists COVID-19 Vaccine () 06/30/2023 03/01/2023, 12/19/2021, 12/10/2020, Additional history exists GFR 11/27/2023 05/28/2023, 05/09, 05/11/2023, Additional history exists CKD PHOS USE SMARTSET 85706 01/13/202406/2022, 01/11/2023, 01/10/2023, Additional history exists Albumin/Creatinine Ratio 03/01/2024 024, 02/13/2022, 10/25/2014 CKD HGB USE SMARTSET 27821 03/01/202403/01, 03/01/2023, 01/15/2023, Additional history exists TSH [...] of this encounter Visit Diagnoses Diagnosis Chronic hypoxic respiratory failure (HCC)- Primary Chronic heart failure with preserved ejection fraction (HCC) documented in this encounter Advance Directives * Full Code (Latest Code Status on File) Date Activated Date Inactivated Comments 01/04/2023 6:10 PM 01/15/2023 4:20 PM This order reflects the patients wishes and were consensually agreed upon. Question Answer Comments Discussion of Advance Direct marianna occurred with: Not Discussed due to patient's condition Care Teams Electronic Coils Supervisor Relationship Specialty Start Date End Date Anna King MD [address] [place] [address] [place] [id number] PCP - General Family Medicine 07/24/13 documented as of this encounter
--- OUTSIDE RECORDS SUMMARY | 2024-01-06 09:59 | External Medical Summary | Summary of Care ---
Author Name Unknown Organization [facility] [address] [place] [address] Phone [phone] Care Team Providers Care Vp Scientific Affairs Name Role Phone Anna King MD Primary Care Provide r Encounter Details Date Type Department Care Team (Latest Contact Info) Description 07/27/2023 Medication Management [facility] [address], [place] [id number] [facility] [address] [facility] [place] [address] Referred for management of medication therapy* Allergies Active Allergy Reactions Criticality Noted Date Comments Niacin 09/20/2002 niaspan-flushing Oxycodone-Acetaminophen 08/18/2014 Propoxyphene Napsylate 03/08/2003 rash documented as of this encounter (statuses as of 07/27/2023) Medications Medication Sig Dispensed Refills Start Date [...] as of this encounter (statuses as of 07/27/2023) Active Problems Problem Noted Date Diagnosed Date [...] 02/26/19 21 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 (Household - for [...] as of this encounter Progress Notes * Lio Hein [facility] - 07/27/2023 2:21 PM EDT Myron May is a 82 year old male. Objective: Review of patient's allergies indicates: Allergen Reactions Niacin niaspan-flushing Oxycodone-Acetaminophen Propoxyphene Napsylate rash Current Outpatient Medications - WARNING: List may be incomplete due to filtering Medication Sig Dispense Refill cycloSPORINE 0.05 % Ophthalmic Emulsion (Restasis) Instill 1 Drop into both eyes at bedtime. dilTIAZem HCl 30 MG Oral Tablet (Cardizem) Take 1 Tablet by mouth in the morning and 1 Tablet at noon and 1 Tablet before bedtime. 90 Tablet 2 Torsemide 20 MG Oral Tablet (Demadex) Take 2 Tablets by mouth in the morning. 180 Tablet 1 Tamsulosin HCl 0.4 MG Oral Capsule (Flomax) TAKE 1 CAPSULE BY MOUTH EVERY DAY IN THE MORNING 90 Capsule 3 Spironolactone 25 MG Oral Tablet (Aldactone) Take 0.5 Tablets by mouth every other day. Fluticasone-Salmeterol 250-50 MCG/ACT Inhalation Aerosol Powder Breath Activated (Wixela Inhub) INHALE 1 PUFF BY MOUTH TWICE A DAY 180 Each 1 Melatonin 5 MG Oral Capsule Take 1 Capsule by mouth at bedtime. Atorvastatin Calcium 20 MG Oral Tablet (Lipitor) Take 1 Tablet by mouth at bedtime. 90 Tablet 3 ProAir HFA 108 (90 Base) MCG/ACT Inhalation Aerosol Solution 2 doses inhaled every 4-6 hours as needed for shortness of breath, cough or wheeze 18 g 5 dilTIAZem HCl ER 180 MG Oral Capsule Extended Release 24 Hour TAKE 1 CAPSULE BY MOUTH EVERY DAY IN THE MORNING 90 Capsule 3 Acetaminophen 325 MG Oral Tablet (Tylenol) Take 2 Tablets by mouth every 4 hours as needed for Pain, Mild, Pain, Moderate or Fever >38C(100.5F). 30 Tablet 0 rOPINIRole HCl 1 MG Oral Tablet Take 1 Tablet by mouth at bedtime. With food. For restless legs 90 Tablet 1 Apixaban 2.5 MG Oral Tablet (Eliquis) Take 1 Tablet by mouth in the morning and 1 Tablet before bedtime. 180 Tablet 1 Metoprolol Tartrate 25 MG Oral Tablet (Lopressor) Take 1 Tablet by mouth in the morning and 1 Tablet before bedtime. 180 Tablet 1 Sodium Chloride 3 % Inhalation Nebulization Solution Inhale 3 mL via nebulizer in the morning and 3mL before bedtime. 180 mL 0 Levothyroxine Sodium 75 MCG Oral Tablet (Levoxyl) TAKE 1 TABLET BY MOUTH EVERY DAY (AT LEAST 30 MINUTES PRIOR TO BREAKFAST OR OTHER MEDICATIONS) 90 Tablet 2 Mirtazapine 30 MG Oral Tablet Take 1 Tablet by mouth at bedtime. 30 Tablet 0 OLANZapine 5 MG Oral Tablet (zyPREXA) Take 1 Tablet by mouth at bedtime. 30 Tablet 0 Escitalopram Oxalate 20 MG Oral Tablet (Lexapro) Take 1 Tablet by mouth in the morning. 31 Tablet 5 Magnesium 400 MG Oral Capsule Take 1 Capsule by mouth at bedtime. 31 Capsule 5 Lutein 20 MG Oral Capsule Take 1 Capsule by mouth every evening. guaiFENesin ER 600 MG Oral Tablet Extended Release 12 Hour Take 1 Tablet by mouth 2 times a day as needed for Cough or Congestion. CALCIUM 600+D 600-400 MG-UNIT PO TABS Take 1 Tablet by mouth daily. GLUCOSAMINE 1500 COMPLEX PO CAPS Take 1 Capsule by mouth daily with dinner. 0 MULTIVITAMIN/IRON PO TABS Take 1 Tablet by mouth daily with dinner. 0 ASPIRIN 81 MG PO CHEW Take 1 Tablet by mouth in the morning. 100 5 Albuterol Sulfate (2.5 MG/3ML) 0.083% Inhalation Nebulization Solution (Proventil) Inhale 1 Vial via nebulizer every 4 hours as needed for Wheezing or Shortness of Breath. (Patient not taking: Reported on 07/27/2023) 360 mL 11 Leuprolide Acetate (3 Month) 22.5 MG Intramuscular Kit (Lupron) Inject 22.5 mg into a large muscle.Every 3 months, given by Urology, depending on his PSA. oxygen IN GAS 2 LPM via nasal cannula to maintain sats 90-94% and 3 LPM through CPAP during hours of sleep 1 Each 0 Immunization History Administered Date(s) Administered COVID-19 mRNA, LNP-s, No Preserve, 2-Dose Series (Moderna) 03/20/2020, 04/17/2020, 12/01/2020 COVID-19, MRNA-LNP, 23-24, PF, 30 MCG/0.3 mL, 12 YRS AND ABOVE, IM ([facility]) 03/01/2023 COVID-19, mRNA, LNP-s, PF, Booster, 100mcg/0.5mg (Moderna) 12/10/2020 Covid-19, Mrna, Lnp-s, Pf, Bivalent, 50 Mcg, IM, 12 yrs and above (Moderna) 12/19/2021 Hepatitis B, 20+ yrs 05/13/2011, 06/10/2011, 11/11/2011 Pneumococcal Conjugate Vacc, 13 Valent (Prevnar) 04/17/2014 Pneumococcal Polysaccharide PPV23 (Pneumovax) 06/13/2008 Season Influenza, Quad, PF, Adjuvanted, 65+ Yrs, IM (FLUAD) 10/26/2019 Seasonal Influenza, PF, 6 M & above, IM , (FluLaval or Fluzone) 11/30/2016, 11/30/2017, 11/05/2018 Seasonal Influenza, Quadrivalent Hd (Fluzone Hd) 10/24/2020, 10/20/2021, 10/20/2022 Seasonal Influenza, Quadrivalent, No Preserve, IM 11/07/2015 Seasonal Influenza, Split, IIV3, With Preserve, Inj 01/21/2010, 11/25/2010, 11/12/2011, 11/08/2012,10/17/2013, 10/25/2014 TD, Preservative Free 12/14/2007 TDAP (age 10 and older)(Boostrix) 06/01/2017 Varicella Zoster Vaccine (Adult) 05/05/2010 Zoster Vaccine Recombinant (Shingrix) 10/26/2019, 12/13/2019, 05/03/2020 TMR Interventions TMR Medication Assessment - Maintenance Inhaler Technique: FLUTIC/SALME AER 250/50 Incomplete Encounter MTPs No medication therapy recommendations to display Complete Encounter MTPs Referred for management of medication therapy Current Medication: Fluticasone-Salmeterol 250-50 MCG/ACT Inhalation Aerosol Powder Breath Activated (Wixela Inhub) Rationale: Patient Education - Needs Education Recommendation: Self-Monitoring Note: Counseled patient on inhaler use and mouth hygiene Assessment & Plan Indication, effectiveness, safety and convenience of his medications were reviewed today. The patient's medical conditions were assessed, evaluated, and deemed meeting goals of drug therapy, with thefollowing exceptions. Additional Notes: none Summary Time Spent: 31-45 min Supervising pharmacist who provided the service: Chacha Walker Information Who was the recipient of the CMR service: beneficiary Language Template for the Patient Takeaway: Beninese I attest that I have reviewed and updated the patient's conditions, allergies, and medications to the best of my ability. Patient provided medication list gathered by: Charu Ac RPh 07/27/2023, 2:21 PM documented in this encounter Miscellaneous Notes * MTM Personal Medication List - Lio Hein RPh - 07/27/2023 2:17 PM EDT Medication How I take it Why I use it Prescriber Acetaminophen 325 MG Oral Tablet (Tylenol) Take 2 Tablets by mouth every 4 hours as needed for Pain, Mild, Pain, Moderate or Fever >38C(100.5F). Pain Gill Crouch MD Apixaban 2.5 MG Oral Tablet (Eliquis) Take 1 Tablet by mouth in the morning and 1 Tablet before bedtime. Blood clot prevention Wellington Parrish PA-C ASPIRIN 81 MG PO CHEW Take 1 Tablet by mouth in the morning. Heart health Sophia Terry MD Atorvastatin Calcium 20 MG Oral Tablet (Lipitor) Take 1 Tablet by mouth at bedtime. High cholesterol Anna King MD CALCIUM 600+D 600-400 MG-UNIT PO TABS Take 1 Tablet by mouth daily. General health Self cycloSPORINE 0.05 % Ophthalmic Emulsion (Restasis) Instill 1 Drop into both eyes at bedtime. Dry eyes Anna King MD dilTIAZem HCl 30 MG Oral Tablet (Cardizem) Take 1 Tablet by mouth in the morning and 1 Tablet at noon and 1 Tablet before bedtime. High blood pressure Anna King MD dilTIAZem HCl ER 180 MG Oral Capsule Extended Release 24 Hour TAKE 1 CAPSULE BY MOUTH EVERY DAY IN THE MORNING High blood pressure Anna King MD Escitalopram Oxalate 20 MG Oral Tablet (Lexapro) Take 1 Tablet by mouth in the morning. Mood Wellington Henderson PA-C Fluticasone-Salmeterol 250-50 MCG/ACT Inhalation Aerosol Powder Breath Activated (Wixela Inhub) INHALE 1 PUFF BY MOUTH TWICE A DAY Asthma Dusty Dmitriy Youssef MD GLUCOSAMINE 1500 COMPLEX PO CAPS Take 1 Capsule by mouth daily with dinner. General health Jim Tam MD guaiFENesin ER 600 MG Oral Tablet Extended Release 12 Hour Take 1 Tablet by mouth 2 times a day as needed for Cough or Congestion. Cough Self Levothyroxine Sodium 75 MCG Oral Tablet (Levoxyl) TAKE 1 TABLET BY MOUTH EVERY DAY (AT LEAST 30 MINUTES PRIOR TO BREAKFAST OR OTHER MEDICATIONS) Thyroid Anna King MD Lutein 20 MG Oral Capsule Take 1 Capsule by mouth every evening. General health Self Magnesium 400 MG Oral Capsule Take 1 Capsule by mouth at bedtime. General health Wellington Dawson CONNOR Parrish Melatonin 5 MG Oral Capsule Take 1 Capsule by mouth at bedtime. Sleep Self Metoprolol Tartrate 25 MG Oral Tablet (Lopressor) Take 1 Tablet by mouth in the morning and 1 Tablet before bedtime. High blood pressure Anna King MD Mirtazapine 30 MG Oral Tablet Take 1 Tablet by mouth at bedtime. Mood JHONNY Thurman MULTIVITAMIN/IRON PO TABS Take 1 Tablet by mouth daily with dinner. General health Jim Tam MD OLANZapine 5 MG Oral Tablet (zyPREXA) Take 1 Tablet by mouth at bedtime. Mood Anna King MD ProAir HFA 108 (90 Base) MCG/ACT Inhalation Aerosol Solution 2 doses inhaled every 4-6 hours as needed for shortness of breath, cough or wheeze Asthma Anna King MD rOPINIRole HCl 1 MG Oral Tablet Take 1 Tablet by mouth at bedtime. With food. For restless legs Restless legs syndrome Anna King MD Sodium Chloride 3 % Inhalation Nebulization Solution Inhale 3 mL via nebulizer in the morning and 3mL before bedtime. Breathing JHONNY Thurman Spironolactone 25 MG Oral Tablet (Aldactone) Take 0.5 Tablets by mouth every other day. High blood pressure Wellington Dawson CONNOR Parrish Tamsulosin HCl 0.4 MG Oral Capsule (Flomax) TAKE 1 CAPSULE BY MOUTH EVERY DAY IN THE MORNING Prostate Torrey Abdi MD Torsemide 20 MG Oral Tablet (Demadex) Take 2 Tablets by mouth in the morning. Fluid retention Anna King MD * MTM To-Do-List - Lio Hein RPh - 07/27/2023 2:02 PM EDT Images from the original note were not included. What we talked about: What I should do: The importance of taking your medication as prescribed Your medicine works best when taken as prescribed. It can be hard to remember to take daily medications. Consider making it a part of your daily routine. Pair taking your medication with something you do every day, like brushing your teeth or eating a meal. Consider setting daily alarms to help remind yourself when it is time to take your medicine. Using a pill box can also help you organize your medicines. Pill boxes allow you to fill each day slot with your daily medicine and help you track when your next dose is due. What we talked about: What I should do: Wixela This medication works like a vitamin for your lungs. It works best when taken daily and as prescribed, even if you don't feel it working as soon as you take it. It does not work immediately (or in the moment) like your rescue inhaler. You will notice as you take it daily that overtime your breathing should get easier or shouldn't become worst. Your inhaler could put you at an increase riskfor throat irritation or even throat fungal infections (called thrush). An easy way to keep your throat healthy is swishing and spitting with water after each use. What we talked about: What I should do: Falls can be a serious concern for older adults, but with the right knowledge and precautions, theycan be prevented. By following these recommendations, you can maintain your independence and enjoy a higher quality of life. Keep your living space clutter-free by tidying up any loose items, electrical cords, or rugs that could cause you to trip and fall Ensure all areas of your home are well-lit, especially hallways, staircases, and entrances. Use nightlights to help navigate during nighttime. Use non-slip mats or double-sided tape to prevent rugs and carpets from sliding or bunching up, which can lead to slips and falls. Place handrails on both sides of staircases and grab bars in bathrooms near toilets, showers, and bathtubs for added stability and support. Engage in exercises that focus on strength, balance, and flexibility. Simple activities like walking, maulik chi, or chair exercises can help improve your overall stability. Before starting any exercise program, consult your healthcare provider to ensure it is suitable foryour current health condition. If needed, use walking aids like canes or walkers to provide additional support and stability whilemoving Wear well-fitting shoes with good arch support and a non-slip sole. Avoid high heels, flip-flops, and shoes with worn-out soles Slow down and be mindful of your movements. Rushing or sudden changes in position can lead to imbalance What we talked about: What I should do: Eliquis This medication is meant to thin your blood to prevent clots. Medications that thin your blood can increase risk of bleeds. These medications may cause you to bruise more easily, to have a longer stop time of bleeding if you cut yourself, to have increase in nose bleeds, as well as to make your gums more likely to bleed when brushing your teeth. Advise your doctor of any signs of bleedingsuch as blood in urine or stool, bruises that begin to bleed, bleeding that is not controlled aftera few hours, or a big fall where you hit your head. Also if you do have a bruise, keep an eye on itand make sure it doesn't get any bigger documented in this encounter Plan of Treatment Upcoming Encounters Date Type Department Care Team (Late st Contact Info) Description 08/10/2023 1:00 PM EDT Cardiac Studies Cardiac Studies, [facility] [address] [place] [address] 09/14/2023 12:00 PM EDT Office Visit Cardiology [address] [place] [address] Wellington Parrish PA-C [address] [place] [address] 09/15/2023 3:45 PM EDT [facility] [address] [place] [address] Torrey Abdi MD [address] [place] [address] [address] [place] [id number] 2023 10:00 AM EDT Office Visit Family Medicine [address] [place] [phone] Anna King MD [address] [place] [address] [place] [address] 03/21/2024 10:00 AM EST Office Visit Nephrology, [facility] [address] [place] [address] Darwin Barker MD [address] [place] [address] 07/20/2024 1:00 PM EDT Nurse Only Ancillary [address] [place] [address] [place], Nurse Annual [address] [place] [id number] 07/24/2024 2:20 PM EDT Office Visit Dermatology [address] [place] [address] Bertha Kapoor PA-C [address] [place] [address] [place] [id number] Scheduled Procedures Name Priority Associated Diagnoses Date/Ti me COLONOSCOPY FLEXIBLE PROXIMAL DIAGNOSTIC Recall History of colon polyps Health Maintenance Due Date Last Done Comments Colonoscopy 12/17/2020 12/17/2017, 10/2017, 11/09/2014, Additional history exists COVID-19 Vaccine ( season) 2023 03/01/2023, 12/19/2021, 12/10/2020, Additional history exists GFR 11/27/2023 05/28/2023, 05/09, 05/11/2023, Additional history exists CKD PHOS USE SMARTSET 27040 01/13/202406/2022, 01/11/2023, 01/10/2023, Additional history exists Albumin/Creatinine Ratio 03/01/2024 024, 02/13/2022, 10/25/2014 CKD HGB USE SMARTSET 56304 03/01/202403/014, 03/01/2023, 01/15/2023, Additional history exists TSH 05/10/2024 [...] as of this encounter Visit Diagnoses Diagnosis Referred for management of medication therapy- Primary Encounter for long-term (current) use of other medications documented in this encounter Advance Directives * Full Code (Latest Code Status on File) Date Activated Date Inactivated Comments 01/04/2023 6:10 PM 01/15/2023 4:20 PM This order reflects the patients wishes and were consensually agreed upon. Question Answer Comments Discussion of Advance Direct marianna occurred with: Not Discussed due to patient's condition Care Teams Vp Scientific Affairs Relationship Specialty Start Date End Date Anna King MD [address] [place] [address] [place] [phone] PCP - General Family Medicine 07/24/13 documented as of this encounter
--- OUTSIDE RECORDS SUMMARY | 2024-01-06 09:59 | External Medical Summary ---
Author Name Unknown Address Unknown Organization K01:[facility] - [address] [place] [address] Laboratory Report Ordering Provider Test Date Status ANEUDYJULIOCESARBESS DAUGHERTYSYDNEE 08/04/2023 14:19:37 Karoline l Observation Date Value Abnormality Reference (Units ) Status Magnesium 08/04/2023 14:19:37 2.4 1.5-2.6 (m g/dL) Final Performing Location [facility] - [address] [place] [id number]
--- OUTSIDE RECORDS SUMMARY | 2024-01-06 09:59 | External Medical Summary | Summary of Care ---
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 (Household - for ages [...] encounter Miscellaneous Notes * Telephone Encounter - Digna Mariee LPN - 07/29/2023 3:33 PM EDT Pt notified, will come in for labs today or tomorrow. Pt scheduled to see Dr. Barry on Wednesday. * Telephone Encounter - Enma Sanchez MD [...] Medina LPN - 07/26/2023 9:32 AM EDT [facility] trigger for IVR and weight ASSESSMENT: Spoke [...] 4:20 PM EDT Office Visit Family Medicine [address] [phone] Enma Sanchez MD [address] [place] [address] [place] [id number] 08/10/2023 1:00 PM EDT Cardiac Studies Cardiac Studies, [facility] 132 [facility] [place] [id number] 09/14/2023 12:00 PM EDT Office Visit Cardiology [address] [place] [address] Wellington Parrish PAWaylonC 132 [facility] [place] [address] 09/15/2023 3:45 PM EDT Office Visit Urology, [facility] 132 [facility] [place] [address] Torrey Abdi MD 27 [facility] [address] [place] [address] 2023 10:00 AM EDT Office Visit Family Medicine [address] [phone] Anna King MD [address] [place] [address] [place] [id number] 03/21/2024 10:00 AM EST [facility] [address] [place] [address] Darwin Barker MD [address] [place] [address] 07/20/2024 1:00 PM EDT Nurse Only Ancillary [address] [place] [address] [place], Nurse Annual [facility]ness [address] [place] [address] [place] [id number] 07/24/2024 2:20 PM EDT Office Visit Dermatology [address] [place] [address] Bertha Kapoor PA-C [address] [place] [address] [place] [id number] Scheduled Orders Name Type Priority Associated Diagnoses [...] Additional history exists CKD PHOS USE SMARTSET 75856 01/13/202406/2022, 01/11/2023, 01/10/2023, Additional history exists Albumin/Creatinine Ratio 03/01/2024 024, 02/13/2022, 10/25/2014 CKD HGB USE SMARTSET 71767 03/01/202403/01, 03/01/2023, 01/15/2023, Additional history exists TSH [...] Discussed due to patient's condition Care Teams Polysom Tech Relationship Specialty Start Date End Date Anna King MD [address] [place] [address] [place] [id number] PCP - General Family Medicine 07/24/13 documented as of this encounter
--- OUTSIDE RECORDS SUMMARY | 2024-01-06 10:00 | External Medical Summary | Summary of Care ---
Author Name Unknown Organization [facility] Address [address] [facility] [place] [address] Phone [phone] Care Team Providers Care Postdoctoral Scientist Name Role Phone Anna King MD Primary Care Provide r Reason for Visit * Reason Comments Adult Annual Wellness Visit, Subsequent Visit Encounter Details Date Type Department Care Team (Late st Contact Info) Description 07/19/2023 1:00 PM EDT Nurse Only Ancillary [address] [place] [id number] Candice, Nurse [address] [place] [id number] Adult Annual Wellness Visit, Subsequent Visit Allergies Active Allergy Reactions Criticality Noted Date Comments Niacin 09/20/2002 niaspan-flushing Oxycodone-Acetaminophen 08/18/2014 Propoxyphene Napsylate 03/08/2003 rash documented as of this encounter (statuses as of 07/19/2023) Medications Medication Sig Dispensed Refills Start Date End Date Status ASPIRIN 81 MG PO CHEW Take 1 Tablet by mouth in the morning. 100 5 02/21/2007 Active MULTIVITAMIN/IRON PO TABS Take 1 Tablet by mouth every evening. 0 07/26/2008 Active GLUCOSAMINE 1500 COMPLEX PO CAPS Take 1 Capsule by mouth in the morning. 0 07/26/2008 Active CALCIUM 600+D 600-400 MG-UNIT PO TABS 1 tab daily by mouth Active guaiFENesin ER 600 MG Oral Tablet [...] MG Oral Capsule Extended Release 24 HourIndications:Longs tanjonh persistent atrial fibrillation (HCC) TAKE 1 CAPSULE [...] as of this encounter (statuses as of 07/19/2023) Active Problems Problem Noted Date Diagnosed Date Malignant neoplasm of prostate 03/01/2023 History of fusion of lumbar spine 03/01/2023 (HFpEF) heart failure with preserved ejection fr action 01/04/2023 Achalasia 01/04/2023 Permanent atrial fibrillation 01/04/2023 Interstitial pulmonary disease 10/20/2022 Elevated prostate specific antigen (PSA) 09/12/2 023 Chronic hypoxic respiratory failure 02/13/2022 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 Chronic diastolic congestive heart failure 02/13 Chronic bilateral low back pain with left-sided sciatica 02/13/2022 Hypertensive heart and kidne y disease with chronic diastolic congestive heart failure and stage 3b chronic kidney disease 06/26/2021 Other schizophrenia 05/16/2021 Post-traumatic stress disorder, chronic 02/26/19 21 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 02/27/2020 Pancreas [...] as of this encounter (statuses as of 07/19/2023) Resolved Problems Problem Noted Date Diagnosed Date [...] as of this encounter (statuses as of 07/19/2023) Immunizations Name Administration Dates Next Due COVID-19 [...] Sign Reading Time Taken Comments Blood Pressure 110/64 07/19/2023 1:22 PM EDT Pulse 85 07/19/2023 1:22 PM EDT Temperature 36.2 C (97.1 F) 07/19/2023 1:22 PM ED T Respiratory Rate - - Oxygen Saturation 90% 07/19/2023 1:22 PM EDT Inhaled Oxygen Concentration - - Weight 98.4 kg (217 lb) 07/19/2023 1:22 PM EDT Height 182.9 cm (6') 07/19/2023 1:22 PM EDT Body Mass Index 29.43 07/19/2023 1:22 PM EDT documented in this encounter Patient Instructions * Patient Instructions* Sweetie Conway RN - 07/19/2023 1:21 PM EDT Patient Instructions - Fall Prevention (This education is for all patients over 65 regardless of symptoms) Remember to take your current medications as prescribed. In order to prevent falls, you are encouraged to: Exercise Utilize assistive/adaptive devices Avoid multifocal lenses when walking Avoid hazards in home Maintain a regular toileting schedule Any questions please contact our office. Preventing Falls in the Home (This education is for all patients over 65 regardless of symptoms) As you get older, falls are more likely. Thats because your reaction time slows. Your muscles and joints may also get stiffer, making them less flexible. Illness, medications, and vision changes can also affect your balance. A fall could leave you unable to live on your own. To make your home safer, follow these tips: Floors Put nonskid pads under area rugs Remove throw rugs Replace worn floor coverings Tack carpets firmly to each step on carpeted stairs. Put nonskid strips on the edges of uncarpeted stairs Keep floors and stairs free of clutter and cords Arrange furniture so there are clear pathways Clean up any spills right away Bathrooms Install grab bars in the tub or shower Apply nonskid strips or put a nonskid rubber mat in the tub or shower Sit on a bath chair to bathe Use bathmats with nonskid backing Lighting Keep a flashlight in each room Put a nightlight along the pathway between the bedroom and the bathroom [employer] Patient Education Copyright 2008 - 2010 Ez[employer] except where otherwise noted Preventing Falls: Exercises to Improve Balance, Flexibility, Strength, and Staying Power (This education is for all patients over 65 regardless of symptoms) Certain types of exercises may help make you less likely to fall. Try the ones below. Or do other exercises that your healthcare provider suggests. Depending on your health, you may need to start slowly. Dont let that stop you. Even small amounts of exercise can help you. Be sure to talk to yourhealthcare provider before starting any exercise program. Improve Balance Many types of exercise can help improve balance. Beto chi and yoga are good examples. Heres another one to try. You can do it anytime and almost anywhere. Stand next to a counter or solid support. Push yourself up onto your tiptoes. Hold for 5 seconds. If you start to lose your balance, hold on to the counter. Rest and repeat 5 times. Work up to holding for 20 to 30 seconds, if you can. Increase Flexibility Being more flexible makes it easier for you to move around safely. Try exercises like the seated hamstring stretch. Sit in a chair and put one foot on a stool. Straighten your leg and reach with both hands down either side of your leg. Reach as far down your leg as you can. Hold for about 20 seconds. Go back to the starting position. Then repeat 5 times. Switch legs. Build Strength Resistance exercises help build strength. You can do them without equipment. Or you can use weights, elastic bands, or special machines. One such exercise is called the biceps curl. You can hold a 1 pound weight or even a can of soup. Do this exercise at least 3 times a week. Strive for everyday. Sit up straight in a chair. Keep your elbow close to your body and your wrist straight. Bend your arm, moving your hand up to your shoulder. Then slowly lower your arm. Repeat 5 times. Switch to the other arm. Build Your Staying Power Aerobic exercises make your heart and lungs stronger so you can keep moving longer. Walking and swimming are two of the best types of exercises you can do. Using a stationary bike is great, too. Find an aerobic exercise that you enjoy. Start slowly and build up. Even 5 minutes is helpful. Aimfor a goal of 30 minutes, at least 3 times a week. You dont have to do 30 minutes in one session. Break it up and walk a little throughout the day. More Helpful Tips Start easy. Slowly work up to doing more. Talk with your healthcare provider about the best exercises for you. Call senior centers or health clubs about exercise programs. If needed, have a family member watch you walk every so often to check your stability. Exercise with a friend. Choose an activity you both enjoy. Try exercises that you can do anytime, anywhere. Here are two examples. Have someone with you when you first try these: Practice walking by placing one foot right in front of the other. Stand up and sit down 10 times. Repeat this throughout the day. [employer] Patient Education Copyright 2008 [employer] except where otherwise noted. Preventing Falls: Moving Safely Using a Cane or Walker (This education is for all patients over 65 regardless of symptoms) Keep the cane away from your feet so you dont trip. A walking aid, such as a cane or walker, can help you stay more independent and avoid falls. Remember to keep your walking aid within easy reach when youre in a chair or in bed. And learn how to use it safely so you dont injure yourself. Using a Cane If you have a stronger side, hold the cane on that side. Get your balance. Move the cane and your weaker leg forward. Support your weight on both the cane and your weaker side. Step with your stronger leg. Start again from step 1. If youre using a folding walker, be sure you know how to lock it open. Check that its locked open before each use. Using a Walker Roll the walker (or lift it, if youre using one without wheels) forward about 12 inches. Step forward with your weaker leg first. Use the walker to help keep your balance. Bring your other foot forward to the center of the walker. Start again from step 1. Helpful Tips Check with your healthcare provider about the right walking aid to use. Ask about a walker with a seat attached. Check the tips of your cane or walker to make sure they have nonskid covers. Move slowly from room to room. Dont warner. Sit down to get dressed. Use a mery pack or backpack to keep your hands free. Get help for jobs that mean climbing, even on a stepstool. [employer] Patient Education Copyright 2008 - 2010 [employer] except where otherwise noted. Treating Urinary Incontinence in Men (This education is for all patients over 65 regardless of symptoms) You can't always control the release of urine. You may leak urine. Or you may not be able to hold your urine until you can get to a bathroom. This is called urinary incontinence. The problem can be managed. Talk to your doctor about your treatment options. Taking Medications Prescription medications may help you. They may: Help the sphincter to work better. (This is the muscle that closes to keep urine from leaking out of the bladder.) Help stop the bladder from shelby too often to push urine out. Help the bladder muscles contract with more force. Help relax the sphincter muscle and allow urine to flow more freely. Making Changes to Your Routine Certain changes in your daily routine may help. These include: Avoiding caffeine and alcohol. Using timed voiding. This is following a schedule for drinking fluids and urinating. Doing Kegel exercises daily. These exercises involve tightening the muscles in your sphincter and around your bladder to help strengthen them. Your doctor can explain how to do them. Using a Catheter A catheter is a narrow tube that is inserted through the urethra into the bladder. It drains urine.A condom catheter covers the penis. It channels urine into a collection bag. It is worn most of thetime. Intermittent catheterization means inserting a catheter to drain the bladder, then removing it. This is done on a regular schedule. Having Surgery If other options don't work, surgery may be recommended. If surgery is an option, your healthcare provider can discuss it with you and explain its risks and benefits. Healing After Prostate Surgery Surgery on the prostate gland can cause incontinence. Most often, the incontinence is only for a short time. It clears up when healing is complete. Very rarely, prostate surgery can result in permanent incontinence. Hi Mr. May, As your primary care physician, I know that regular visits with my patients who have several chronic conditions can go a long way in helping you stay healthy. Many times, the clinic team and I are in touch with you and/or other care team members between office visits to adjust medications, discuss any changes in your health, and review our care plan to make sure it is still meeting your needs. I am dedicated to helping you take a more active role in your overall care. It is important that there are resources available to you, so I created a personalized plan of care with a Health Calendar for you, which is included on the next page of this letter. Below is a list that summarizes your electronic health record: Health Maintenance Due: Health Maintenance Due Topic Date Due Colonoscopy 12/17/2020 COVID-19 Vaccine ( season) 2023 Current Medication List: (as of Visit date not found (in office), Visit date not found (telemedicine) ) Current Outpatient Medications Medication Sig Dispense Refill ASPIRIN 81 MG PO CHEW Take 1 Tablet by mouth in the morning. 100 5 MULTIVITAMIN/IRON PO TABS Take 1 Tablet by mouth every evening. 0 GLUCOSAMINE 1500 COMPLEX PO CAPS Take 1 Capsule by mouth in the morning. 0 CALCIUM 600+D 600-400 MG-UNIT PO TABS 1 tab daily by mouth guaiFENesin ER 600 MG Oral Tablet Extended Release 12 Hour Take 1 Tablet by mouth 2 times a dayas needed for Cough or Congestion. Lutein 20 MG Oral Capsule Take 1 Capsule by mouth every evening. Magnesium 400 MG Oral Capsule Take 1 [...] TABLET BY MOUTH EVERY DAY (AT LEAST 30MINUTES PRIOR TO BREAKFAST OR OTHER MEDICATIONS) 90 Tablet 2 Sodium Chloride 3 % Inhalation Nebulization Solution Inhale 3 mL via nebulizer in the morning and 3 mL before bedtime. 180 mL 0 Metoprolol Tartrate 25 MG Oral Tablet (Lopressor) Take 1 Tablet by mouth in the morning and 1 Tablet before bedtime. 180 Tablet 1 Apixaban 2.5 MG Oral Tablet (Eliquis) Take 1 Tablet by mouth in the morning and 1 Tablet beforebedtime. 180 Tablet 1 rOPINIRole HCl 1 MG Oral Tablet Take 1 Tablet by mouth at bedtime. With food. For restless legs90 Tablet 1 Albuterol Sulfate (2.5 MG/3ML) 0.083% Inhalation Nebulization [...] Hour TAKE 1 CAPSULE BY MOUTH EVERY DAYIN THE MORNING 90 Capsule 3 ProAir HFA 108 (90 Base) MCG/ACT Inhalation Aerosol Solution 2 doses inhaled every 4-6 hours asneeded for shortness of breath, cough or wheeze 18 g 5 Atorvastatin Calcium 20 MG Oral Tablet (Lipitor) Take 1 Tablet by mouth at bedtime. 90 Tablet 3 Melatonin 5 MG Oral Capsule Take 1 Capsule by mouth at bedtime. Fluticasone-Salmeterol 250-50 MCG/ACT Inhalation Aerosol Powder Breath Activated (Wixela Inhub)INHALE 1 PUFF BY MOUTH TWICE A DAY 180 Each 1 Spironolactone 25 MG Oral Tablet (Aldactone) Take 0.5 Tablets by mouth every other day. Tamsulosin HCl 0.4 MG Oral Capsule (Flomax) TAKE 1 CAPSULE BY MOUTH EVERY DAY IN THE MORNING 90Capsule 3 Torsemide 20 MG Oral Tablet (Demadex) Take 2 Tablets by mouth in the morning. 180 Tablet 1 dilTIAZem HCl 30 MG Oral Tablet (Cardizem) Take 1 Tablet by mouth in the morning and 1 Tablet at noon and 1 Tablet before bedtime. 90 Tablet 2 oxygen IN GAS 2 LPM via nasal cannula to maintain sats 90-94% and 3 LPM through CPAP during hours of sleep 1 Each 0 Leuprolide Acetate (3 Month) 22.5 MG Intramuscular Kit (Lupron) Inject 22.5 mg into a large muscle. Every 3 months, given by Urology, depending on his PSA. No current facility-administered medications for this visit. Current List of Allergies: (as of Visit date not found (in office), Visit date not found (telemedicine) ) Review of patient's allergies indicates: Allergen Reactions Niacin niaspan-flushing Oxycodone-Acetaminophen Propoxyphene Napsylate rash Most Recent Lab Results: Results for orders placed or performed in visit on 05/28/23 BASIC METABOLIC PANEL Result Value Ref Range BUN 25 (H) 6 - 20 mg/dL Creatinine 1.6 (H) 0.6 - 1.2 mg/dL Estimated Glomerular Filtration Rate 43 (L) >=60 mL/min Sodium 139 135 - 146 mmol/L Potassium 4.6 3.5 - 5.1 mmol/L Chloride 95 (L) 98 - 107 mmol/L CO2 33 (H) 22 - 32 mmol/L Anion Gap 11 7 - 15 mmol/L Glucose 79 70 - 120 mg/dL Calcium 9.7 8.4 - 10.2 mg/dL *Note: Due to a large number of results and/or encounters for the requested time period, some results have not been displayed. A complete set of results can be found in Results Review. Sincerely, Anna King MD 07/19/2023 [facility] [address] Calendar (as of Visit date not found (in office), Visit date not found (telemedicine) ) Care needs Care needs Last completed Due next Colonoscopy 12/17/2017 12/17/2020 COVID-19 Vaccine () 03/01/2023 06/30/2023 Kidney Function Test 05/28/2023 11/27/2023 Urine albumin/creatinine test 03/01/2023 03/01/2024 Yearly thyroid level check 05/11/2023 05/10/2024 Diphtheria, tetanus & pertussis vaccines (2 - Td or Tdap) 06/01/2017 06/02/2027 As you look over the recommended services, be sure to check with your insurance company to determine what's covered. [employer] is a great tool that helps you review your medical record online, including test results, doctor notes and your health summary. You can also schedule appointments with me and other members of your care team, request prescription refills and ask for advice related to your medical conditions at [email or web address]. documented in this encounter Progress Notes * Sweetie Conway RN - 07/19/2023 1:21 PM EDT Urinary Incontinence Plan of Care Documentation: (This education is for all patients over 65 regardless of symptoms) Current medications reconciled. Patient encouraged to: Practice kegal exercises Provide education materials Use the restroom every 2 hours throughout the day Limit caffeine, alcohol, spicy foods and acidic foods Keep a bladder diary Limit fluid intake 3-4 hours before bed Lose weight Prevent constipation Take fluid pills at a time when you can get to the bathroom quickly Control sugar better if diabetic Limit fluid intake to 60 oz. per day Wear support stockings (TEDs)if you have edema Sweetie Conway RN 07/19/2023AD8 Dementia Screening Interview Person answering questions: patient Remember, "Yes, a change" indicates that there has been a change in the last several years caused by cognitive (thinking and memory) problems 1. Problems with judgement (eg: problems making decisions, bad financial decisions, problems with thinking). No (0) 2. Less interest in hobbies/activities. No (0) 3. Repeats the same things over and over (questions, stories, or statements). No (0) 4. Trouble learning how to use a tool, appliance, or gadget (eg: VCR, computer, microwave, remote control). No (0) 5. Forgets correct month or year. No (0) 6. Trouble handling complicated financial affairs (eg: balancing checkbook, income taxes, paying bills). No (0) 7. Trouble remembering appointments. No (0) 8. Daily problems with thinking and/or memory. No (0) TOTAL AD8: 0 - AD8 Dementia Screening Score The final score is a sum of the number items marked "Yes, A Change". 0 - 1: Normal cognition; 2 or greater: Cognitive impairments is likely to be present - further testing required Adult Annual Wellness Visit: Cristhian May is a 82 year old male who presents for an Adult Annual Wellness Visit. Depression Screening: Did the patient complete the screening questionnaire for Depression? Yes Is the patient's total score for Depression 15 or greater? No, no further intervention needed, unless requested by patient. Did the patient answer positively to the suicide question? No, no further intervention needed, unless requested by patient. In general, compared to other people your age, what would you say that your health is? Fair Ht Readings from Last 1 Encounters: 07/19/23 1.829 m (6') Wt Readings from Last 1 Encounters: 07/19/23 98.4 kg (217 lb) Body Mass Index: BMI Less than 30 Body mass index is 29.43 kg/m. 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 Machado--umremarkable COLONOSCOPY 2000 Jeannette--polyps COLONOSCOPY, DIAGNOSTIC (RECTUM) 11/09/2014 hyperplastic polyps, suboptimal prep, repeat 3 yrs/COLONOSCOPY FLEXIBLE PROXIMAL DIAGNOSTIC performed by Digna Ridley DO at ENDOSCOPY [facility] COLONOSCOPY, DIAGNOSTIC (RECTUM) 12/17/2017 hyperplastic polyp, repeat 3 yrs/COLONOSCOPY FLEXIBLE PROXIMAL DIAGNOSTIC performed by Digna Ridley DO at ENDOSCOPY [facility] CYSTOSCOPY 09/03/2014 EGD, FLEXIBLE, BALLOON DILATION >=30MM N/A 01/08/2023 ESOPHAGOGASTRODUODENOSCOPY (EGD), FLEXIBLE, TRANSORAL: BALLOON DILATION (30 MM OR MORE) performed by Boston Bennett MD [place] [facility] [place], FLEXIBLE, DIAGNOSTIC N/A 01/07/2023 ESOPHAGOGASTRODUODENOSCOPY (EGD), FLEXIBLE, TRANSORAL, DIAGNOSTIC performed by Boston Bennett MD [place] [facility] [place], FLEXIBLE, DIAGNOSTIC N/A 01/06/2023 ESOPHAGOGASTRODUODENOSCOPY (EGD), FLEXIBLE, TRANSORAL, DIAGNOSTIC performed by Boston Bennett MD [place] [facility] [place], FLEXIBLE, DIAGNOSTIC N/A 12/15/2022 normal/EGD/[place] EGD, W/ENDOSCOPIC US 08/07/2019 pseudocysts, repeat 3 mo / ESOPHAGOGASTRODUODENOSCOPY (EGD), FLEXIBLE, TRANSORAL, ENDOSCOPIC ULTRASOUND performed by Kiran Lucia MD at ENDOSCOPY [facility] EGD, W/ENDOSCOPIC US 01/15/2020 pancreatic mucinous cyst / ESOPHAGOGASTRODUODENOSCOPY (EGD), FLEXIBLE, TRANSORAL, ENDOSCOPIC ULTRASOUND performed by Kiran Lucia MD at ENDOSCOPY [facility] INFORMATION 1971 vasectomy down in [facility] INTERSTITIAL RADIATION APPLICATION, COMPLEX 08/23/2013 INSTERSTITIAL RADIATION SOURCE APPLICATION COMPLEX performed [place] Chu Palomares [place] [facility] LUMBAR SPINE FUSION, POST INTERBODY N/A 12/03/2022 Dr. Esteves L2-L5 PROCTOSIGMOIDOSCOPY/REMOVE LESION benign REMOVAL OF ANORECTAL LESION REMOVAL OF TONSILS, AGE 12+ THORAX SPINE FUSION, POSTEROLATERAL 12/09/2022 Dr. Esteves T10-T12 TOTAL HIP REPLACEMENT & PROSTHESIS 2003 right TOTAL HIP REPLACEMENT & PROSTHESIS Left 08/19/2022 Dr. Witt TRANS PL OF NEED OR CATH IN [place] 08/23/2013 TRANSPERINEAL PLACEMENT NEEDLES INTO PROSTATE FOR INTERSTITIAL RADIOELEMENT W/O CYSTOSCOPY performed by Chu Palomares MD at [facility] ULTRASONIC GUIDE, INTERSTITIAL RADIOELEMENT 08/23/2013 ULTRASONIC GUIDED INTERSTITIAL RADIOELEMENT APPLICATION performed by Chu Palomares MD at [facility] Family History Problem Relation Name Age of Onset Other (Blood clot) Brother Renal Hx Brother Renal failure Diabetes Daughter Cancer Daughter breast Has patient ever had cancer? History of cancer, type: prostate Social History Tobacco Use Smoking status: Former Current packs/day: 0.00 Average packs/day: 1.5 packs/day for 24.0 years (36.0 ttl pk-yrs) Types: Cigarettes Start date: [birth year]08/1954 Quit date: 02/08/1978 Years since quittin.4 Smokeless tobacco: Former Types: Snuff, Chew Quit date: 1969 Substance Use Topics Alcohol use: Not Currently Vaping/E-Cigarette Use Vaping/E-Cigarette Use Never User Vaping/E-Cigarette Substances Vaping/E-Cigarette Devices Tobacco/Alcohol screening completed today? Yes Hospital Care: Admissions (within the last year): Hospital, Location: [facility] [facility] within 30 days: No Does the patient have an Advance Directives/Living Will? Yes Last Physical Exam: Last physical exam: 04/2023 Does patient see primary provider regularly? Yes Does patient see other providers? Yes, Specialist Patient Care Team updated? Yes Review of patient's allergies indicates: Allergen Reactions Niacin niaspan-flushing Oxycodone-Acetaminophen Propoxyphene Napsylate rash Immunization History Administered Date(s) Administered COVID-19 mRNA, LNP-s, No Preserve, 2-Dose Series (Moderna) 03/20/2020, 04/17/2020, 12/01/2020 COVID-19, MRNA-LNP, 23-24, PF, 30 MCG/0.3 mL, 12 YRS AND ABOVE, IM ([employer]ir[employer]er) 03/01/2023 COVID-19, mRNA, LNP-s, PF, Booster, 100mcg/0.5mg [...] Zoster Vaccine Recombinant (Shingrix) 10/26/2019, 12/13/2019, 05/03/2020 Current Outpatient Medications Medication Sig Dispense Refill ASPIRIN 81 MG PO CHEW Take 1 Tablet by mouth in the morning. 100 5 MULTIVITAMIN/IRON PO TABS Take 1 Tablet by mouth every evening. 0 GLUCOSAMINE 1500 COMPLEX PO CAPS Take 1 Capsule by mouth in the morning. 0 CALCIUM 600+D 600-400 MG-UNIT PO TABS 1 tab daily by mouth guaiFENesin ER 600 MG Oral Tablet Extended Release 12 Hour Take 1 Tablet by mouth 2 times a day as needed for Cough or Congestion. Lutein 20 MG Oral Capsule Take 1 Capsule by mouth every evening. Magnesium 400 MG Oral Capsule Take 1 [...] food. For restless legs 90 Tablet 1 Albuterol Sulfate (2.5 MG/3ML) 0.083% Inhalation Nebulization [...] 1 Tablet before bedtime. 90 Tablet 2 oxygen IN GAS 2 LPM via nasal cannula to maintain sats 90-94% and 3 LPM through CPAP during hours of sleep 1 Each 0 Leuprolide Acetate (3 Month) 22.5 MG Intramuscular Kit (Lupron) Inject 22.5 mg into a large muscle.Every 3 months, given by Urology, depending on his PSA. No current facility-administered medications for this visit. Patient Active Problem List Diagnosis Hip joint [...] stress disorder, chronic Atherosclerotic heart disease of [place] coronary artery without angina pectoris Other schizophrenia [...] (HCC) History of fusion of lumbar spine Medication Compliance: Patient is able to obtain all of his medications? Yes Patient takes medications as prescribed? Yes Patient manages own medications: Yes Patient uses a pill box? Yes, refill(s) completed by self and spouse Dental Exam: every 6mth Eye Screening: Yes: Every year Are you having trouble with hearing? No Do you use an assistive device to help your hearing? No Exercise Screening: does not exercise regularly Nutrition Assessment: Eats three meals a day Pain Screening: Are you having any pain? Yes. Pain Scale: 0 = none, worse with coughing Sleep Screening Tool 'STOP': Do you snore? Yes Do you feel fatigued during the day? No Do you wake up feeling like you haven't slept? No Have you been told you stop breathing at night? Yes Do you gasp for air or choke while sleeping? No Have you been told you have Sleep Apnea? Yes Do you have high blood pressure or are on medication(s) to control high blood pressure? Yes SCORE: If you check YES to two or more questions, make a referral for Obstructive Sleep Apnea Bipap with 2 L Patient and Caregiver Support System: Patient lives with a spouse Means of Transportation: Drives. Concerns identified are: since surgery Patient lives in One Story - with basement stairs: 2 steps, patient has not been in the basement osei year. Community Resources: Not Applicable, farmers vouchers Functional Status and ADL Skills: Has patient ever had an amputation? No Functional Assessment: 80- Normal activity with effort: some symptoms of disease Ambulation: Patient ambulates with assistive device. Walker Dressing: Gets clothes and dresses without any assistance: Minimal Assistance Able to move freely in chair or bed including turning over: Independent Repositioning (bed or chair): Transfers: Independent Toileting: Goes to bathroom, uses toilet, arranges clothes and returns without any assistance: Minimal Assistance Toileting: continent of bladder and continent of bowel Feeding: Self Bathing: Self; Shower Chair/bench and grab bars Requires minimal assistance with ADLs. Instrumental ADL's: Shopping: Minimal Assistance Housekeeping: Minimal Assistance Handling Finances: Minimal Assistance DME Vendor Name: Not Applicable Fall Risk Assessment: Can the patient demonstrate that he can stand from a sitting position? Yes Has the patient had a fall within the last 6 months? No Does the patient have a problem with his gait or balance? Yes Does the patient take 4 or more prescription medicines? Yes Does the patient use sedatives or narcotics? No Fall Risk Factors Present: Uses more than 4 medications Balance or gait disturbances Lower extremity weakness Visually impaired Older than age 70 Skn-Ej-jir-Go Test: Time began at 130. Patient stood from sitting position and walked approximately 10 feet, returned and sat down. Total time for wlj-tg-ynz-go test was 12 seconds. End-Yf-xlf-Go Test completed? Yes Gender Specific Preventative Plan: Health Maintenance Topic Date Due Colonoscopy 12/17/2020 COVID-19 Vaccine ( season) 2023 GFR 11/27/2023 CKD PHOS USE SMARTSET 42184 01/13/2024 Albumin/Creatinine Ratio 03/01/2024 CKD HGB USE SMARTSET [id number] 03/01/2024 TSH 05/10/2024 Depression Monitoring 07/18/2024 DTaP,Tdap,and Td Vaccines (2 - Td or Tdap) 06/02/2027 Hepatitis B Completed Influenza Vaccine (FLU shot) Completed Zoster Vaccines Completed Pneumococcal Vaccine: 65+ Years Completed MENINGOCOCCAL (MENACTRA/MENVEO) Aged Out GARDASIL-HPV IMMUNIZATION SERIES Aged Out Follow Up/ Referrals/Handouts: Depression screening - completed, doing well, had a very difficult time 11/30- 03/03. Patient was life flight and "I didn't think I was going to make it" Functional assessment - doing well, has needed to learn how to walk again, after back surgery and complications. Falls Risk screening - discussed, patient encouraged to use walker with seat Exercise screening - discussed and encouraged to walk more Nutrition assessment -. Education Provided Pain screening - discussed, doing much better Incontinence screening - no complaints today. Patient has been verbally educated on the need or importance of Cholesterol, Colon Cancer Screening, GFR, Glucose, and Immunizations: covid,flu,shingles Pt has completed the covid vaccines: Yes, Routine general medical examination at a health care facility (Primary) Risk and functional assessment Advanced care planning/counseling discussion Patient has ACP and has copy scanned into chart. Acquired hypothyroidism - Med reconciliation completed and compliance discussed. - pt to continue present medications. Asthma, mild persistent - Med reconciliation completed and compliance discussed. - pt to continue present medications. Atherosclerotic heart disease of [place] coronary artery without angina pectoris - Med reconciliation completed and compliance discussed. - pt to continue present medications. BPH without obstruction/lower urinary tract symptoms - Med reconciliation completed and compliance discussed. - pt to continue present medications. Chronic bilateral low back pain with left-sided sciatica - Med reconciliation completed and compliance discussed. - pt to continue present medications. Chronic diastolic congestive heart failure (HCC) - Med reconciliation completed and compliance discussed. - pt to continue present medications. Chronic hypoxic respiratory failure (HCC) - Med reconciliation completed and compliance discussed. - pt to continue present medications. Patient uses 1 L of O2 during the day, 2L with bipap at bedtime Dyslipidemia, goal LDL below 100 - Med reconciliation completed and compliance discussed. - pt to continue present medications. Lab Results Component Value Date/Time LDL CHOLESTEROL (CALCULATED) - [facility] 80 06/04/2022 07:52 AM LDL CHOLESTEROL (CALCULATED) - [facility] 74 10/26/2019 10:36 AM LDL CHOLESTEROL (DIRECT MEASURE) - [facility] NOT APPLICABLE 10/26/2019 10:36 AM LDL CHOLESTEROL (DIRECT MEASURE) - [facility] 102 03/03/2011 08:30 AM Elevated prostate specific antigen (PSA) Patient follows up with urology PSA Results: Lab Results Component Value Date/Time PSA - [facility] 0.79 05/20/2023 01:37 PM PSA - [facility] 1.16 03/01/2023 01:20 PM PSA - [facility] 1.75 09/16/2022 11:00 AM PSA - [facility] 0.37 06/01/2019 09:20 AM PSA - [facility] 0.22 11/01/2018 10:12 AM PSA - [facility] 0.20 06/01/2018 10:57 AM PSA SCREENING 4.58 (H) 12/22/2011 07:40 AM PSA SCREENING 4.46 (H) 06/13/2008 09:04 AM PSA SCREENING 2.17 05/12/2007 11:41 AM History of colon polyps Patient will discuss at next appointment with Anna King MD patient did cancel due to hospitalizations History of prostate cancer Patient does follow up with urology HTN, goal below 140/90 - Med reconciliation completed and compliance discussed. - pt to continue present medications. BP Readings from Last 3 Encounters: 07/19/23 110/64 06/22/23 110/64 05/03/23 114/64 Hx of actinic keratosis Patient does follow up with Dermatology Hypertensive heart and kidney disease with chronic diastolic congestive heart failure and stage 3b chronic kidney disease (HCC) Component Latest Ref Rng 05/28/2023 BUN 6 - 20 mg/dL 25 (H) Creatinine 0.6 - 1.2 mg/dL 1.6 (H) Estimated Glomerular Filtration Rate >=60 mL/min 43 (L) Legend: (H) High (L) Low Interstitial pulmonary disease (HCC) - Med reconciliation completed and compliance discussed. - pt to continue present medications. Longstanding persistent atrial fibrillation (HCC) - Med reconciliation completed and compliance discussed. - pt to continue present medications. RUDY treated with BiPAP Patient does use 2L at bedtime Other schizophrenia (HCC) - Med reconciliation completed and compliance discussed. - pt to continue present medications. Patient does follow up with specialist on reg bases Permanent atrial fibrillation (HCC) - Med reconciliation completed and compliance discussed. - pt to continue present medications. Presence of cardiac pacemaker Patient does follow up with cardiology Severe episode of recurrent major depressive disorder, with psychotic features (HCC) - Med reconciliation completed and compliance discussed. - pt to continue present medications. Follow Up: Return in 1 year (on 07/18/2024) for 12 month Subsequent Adult Wellness Visit. | For: 12 month Subsequent Adult Wellness Visit | Check-out note: 12 month Subsequent Adult Wellness Visit Would patient like to schedule next AWV visit? Yes Sweetie Conway RN documented in this encounter Miscellaneous Notes * ACP (Advance Care Planning) - Sweetie Conway RN - 07/19/2023 2:11 PM EDT Patient-centered Communication 07/19/2023 The patient/surrogate voluntarily agreed to participate in advance care planning discussion. They were advised that this is a separate service which may incur out of pocket cost in the form of copayment and/or deductibles. Location: Home Individual(s) present for conversation: Patient Decisions Synopsis [employer] Most Recent Value Past ~10 years 06/18/2021 13:00 Decisions CPR decision: Patient chooses CPR 06/18/2021 Patient chooses CPR Intubation/Mechanical Ventilation decision: Patient chooses Intubation/mechanical ventilation 06/18/2021 Patient chooses Intubation/mechanical ventilation Antibiotic therapy decision: Patient chooses Antibiotic therapy 06/18/2021 Patient chooses Antibiotic therapy IV hydration decision: Patient chooses IV hydration 06/18/2021 Patient chooses IV hydration Blood transfusion decision: Patient chooses Blood transfusion 06/18/2021 Patient chooses Blood transfusion Lab draw decision: Patient chooses Lab draws 06/18/2021 Patient chooses Lab draws Transport decision: Patient chooses Transport 06/18/2021 Patient chooses Transport Additional Comments [employer] Most Recent Value Past ~10 years 07/19/2023 14:17 Additional Comments Additional Comments: pt does have ACP and a copy is scanned in [employer] 07/19/2023 pt does have ACP and a copy is scanned in [employer] Discerning What Matters Most to the Patient: [employer] Most Recent Value Past ~10 years 09/22/2021 10:42 Discerning What Matters Most to the Patient In their own words, patient's UNDERSTANDING of their illness is: i"t's congestive heart failure that's causing the water retention and the heart isn't functioning up to snuff to get rid of the water" 05/21/2021 Their current SYMPTOMS include: Tiredness 09/22/2021 Tiredness They say their illness has CHANGED THEIR LIFE by: Less enjoyment (quality of life) 05/21/2021 The patient's HOPES are: Avoid further hospitalization 09/22/2021 Avoid further hospitalization The patient defines LIVING WELL as: being able to get out of the house, do work and take a walk with my daughter 05/21/2021 The patient's FEARS/WORRIES about illness are: Going back to the hospital;Dying with uncontrolled symptoms 05/21/2021 Dying with uncontrolled symptoms include: Dyspnea 05/21/2021 Source: Content from [employer] Aligning Care With What Matters Most: Synopsis [employer] Most Recent Value Past ~10 years 06/18/2021 13:00 Aligning Care With What Matters Most Interventions/Choices: CPR;Intubation/mechanical ventilation;Antibiotic therapy;IV hydration;Blood transfusion;Lab draws;Transport 06/18/2021 CPR;Intubation/mechanical ventilation;Antibiotic therapy;IV hydration;Blood transfusion;Lab draws;Transport Rationale for Decisions Source: Content from [employer] 5 minutes spent in direct [id number] discussion today, Sweetie Conway RN documented in this encounter Plan of Treatment Upcoming Encounters Date Type Department Care Team (Late st Contact Info) Description 08/10/2023 2:30 PM EDT Cardiac Studies Cardiac Studies [address] [place] [id number] 09/14/2023 12:00 PM EDT Office Visit Cardiology [address] [place] [id number] [place] Parrish PA-C [facility] [id number] 09/15/2023 3:45 PM EDT Office Visit Urology, [facility] [address] [facility] [place] [id number] Torrey Abdi MD [address] [facility] [address] [place] [id number] 2023 10:00 AM EDT Office Visit Family Medicine [address] [place] [id number] Anna King MD [address] [place] [address] [place] [id number] 03/21/2024 10:00 AM EST Office Visit Nephrology, [facility] [address] [facility] [place] [place] [address] Darwin Barker MD [address] [place] [id number] 07/20/2024 1:00 PM EDT Nurse Only Ancillary [address] [place] [id number] [place], Nurse Annual [facility] [address] [place] [address] [place] [id number] 07/24/2024 2:20 PM EDT Office Visit Dermatology [address] [place] [id number] Bertha Kapoor, [place]Tracie [address] [place] [address] [place] [id number] Scheduled Procedures Name Priority Associated Diagnoses Date/Ti me COLONOSCOPY FLEXIBLE PROXIMAL DIAGNOSTIC Recall History of colon polyps Health Maintenance Due Date Last Done Comments Colonoscopy 12/17/2020 12/17/2017, 10/2017, 11/09/2014, Additional history exists COVID-19 Vaccine ( season) 2023 03/01/2023, 12/19/2021, 12/10/2020, Additional history exists GFR 11/27/2023 05/28/2023, 05/09, 05/11/2023, Additional history exists CKD PHOS USE SMARTSET 56226 01/13/202406/2022, 01/11/2023, 01/10/2023, Additional history exists Albumin/Creatinine Ratio 03/01/2024 024, 02/13/2022, 10/25/2014 CKD HGB USE SMARTSET [id number] 03/01/202403/01, 03/01/2023, 01/15/2023, Additional history exists TSH [...] as of this encounter Visit Diagnoses Diagnosis Routine general medical examination at a health care facility- Primary Risk and functional assessment Screening for unspecified condition Advanced care planning/counseling discussion Other specified counseling Acquired hypothyroidism Unspecified hypothyroidism Asthma, mild persistent Unspecified asthma Atherosclerotic heart disease of [place] coronary artery without angina pectoris Coronary atherosclerosis of [place] coronary artery BPH without obstruction/lower urinary tract symptoms Hypertrophy of prostate without urinary obstruction and other lower urinary tract symptoms (LUTS) Chronic bilateral low back pain with left-sided sciatica Chronic diastolic congestive heart failure (HCC) Chronic diastolic heart failure Chronic hypoxic respiratory failure (HCC) Dyslipidemia, goal LDL below 100 Other and unspecified hyperlipidemia Elevated prostate specific antigen (PSA) History of colon polyps Personal history of colonic polyps History of prostate cancer Personal history of malignant neoplasm of prostate HTN, goal below 140/90 Unspecified essential hypertension Hx of actinic keratosis Personal history of diseases of skin and subcutaneous tissue Hypertensive heart and kidney disease with chronic diastolic congestive heart failure and stage 3b chronic kidney disease (HCC) Interstitial pulmonary disease (HCC) Postinflammatory pulmonary fibrosis Longstanding persistent atrial fibrillation (HCC) RUDY treated with BiPAP Other schizophrenia (HCC) Permanent atrial fibrillation (HCC) Atrial fibrillation Presence of cardiac pacemaker Cardiac pacemaker in situ Severe episode of recurrent major depressive disorder, with psychotic features (HCC) documented in this encounter Advance Directives * Full Code (Latest Code Status on File) Date Activated Date Inactivated Comments 01/04/2023 6:10 PM 01/15/2023 4:20 PM This order reflects the patients wishes and were consensually agreed upon. Question Answer Comments Discussion of Advance Direct marianna occurred with: Not Discussed due to patient's condition Care Teams Postdoctoral Scientist Relationship Specialty Start Date End Date Anna King MD [address] [place] [address] [place] [id number] PCP - General Family Medicine 07/24/13 documented as of this encounter
[2024-01-06] MEDS ORDERED: Nursing to Pharmacy Communication SCH (10:15)
--- NOTE | 2024-01-06 11:20 | Hospitalist Progress Note ---
Date of Service January 06, 2024 Assessment & Plan (1) COVID-19: (2) Acute asthma exacerbation: (3) Acute on chronic respiratory failure with hypoxia and hypercapnia: Plan Patient is a 83-year-old male with past medical history of recurrent aspiration pneumonitis with history of esophageal achalasia, restrictive lung disease, bronchiectasis, RUDY on BiPAP, asthma, tachybradycardia syndrome status post pacemaker, chronic diastolic heart failure, CKD, atrial fibrillation, achalasia, BPH, history of prostatic cancer, depression, generalized anxiety disorder, PTSD, gout, hyperlipidemia and hypothyroidism who presents to the hospital with progressive shortness of breath. COVID-19 infection Acute on chronic hypoxic respiratory failure Asthma exacerbation Possible aspiration pneumonia Obstructive Sleep Apnea Past medical history of recurrent aspiration pneumonitis, restrictive lung disease, bronchiectasis, asthma; presents with shortness of breath and fatigue. Respiratory viral panel positive for COVID-19 infection Chest x-ray showed "shallow inspiration with stable bibasilar atelectasis and vascular congestion" BNP mildly elevated to 94 CT chest concerning for a left greater than right bibasilar airspace opacities, suggestive of an atypical infection or aspiration MRSA nares positive VBG noting chronic hypercapnia on scheduled DuoNebs Was on IV Solu-Medrol Hypertonic saline, flutter valve for airway clearance therapy sputum cx pending zosyn and doxycycline originally ordered speech consult for noted possible aspiration, appreciate recs requiring BiPAP overnight on 01/05/2024 Pulmonology was consulted, appreciate recs. Recommended or stated the following: - transitioned IV Solu-Medrol to p.o. prednisone - continue Breo and as needed bronchodilators -Transition IV Zosyn and doxycycline to p.o. Augmentin for 5 days -nightly CPAP at 10 cm of water. Follow-up with the [facility] sleep clinic in the outpatient setting. improving, no longer on BiPAP per pulmonology Acute Sinusitis Noted on head CT On augmentin as noted above, continue Acute metabolic/toxic encephalopathy Patient with episode of altered mental status overnight on 01/05/2024 Possibly in setting of noted infections above UA currently pending to rule out UTI as another contributory cause Per pulmonology less likely related to chronic hypercapnia Delirium precautions. Frequent reorientation, avoid sedating medications as able Improving Acute Kidney Injury on chronic Kidney Disease Creatinine of 1.39 on admission, went up to 1.41 Has since downtrended to 1.15 Avoid nephrotoxic agents as able Continue to monitor with daily labs Hypermagnesemia Mag noted to be slightly elevated Continue to monitor Chronic anemia hgb 13 , down to 11 Consider further workup if downtrending with iron panel, folate and b12 Continue to monitor with daily labs Wound on left leg continue wound VAC He is finishing up on 7 day course of cefadroxil; held currently on Augmentin as noted above Other chronic conditions: History of achalasia status post balloon dilationreports that he tolerates regular food. Will consider swallow evaluation if clinical suspicion of aspiration is high with a CT chest. Tachybradycardia syndrome status post pacemaker, atrial fibrillationcontinue on diltiazem, metoprolol Eliquis Chronic diastolic heart failureappears compensated, continue on metoprolol, spironolactone, torsemide CADcontinue on aspirin and Lipitor Hypothyroidismcontinue on levothyroxine OSAcontinue CPAP qhs per pulm recs Diet: DMII, HH, [id number], easy to chew DVT prophylaxis: Eliquis Dispo: PT/OT orders once medically stable for further recs Admission and Anticipated Discharge Date Admission Date: January 05, 2024 Subjective patient was seen in the a.m. Laying in bed noting he had a bowel movement today before but felt like he still needed to go Denied chest pain or shortness of breath at the time, had just been switched to nasal cannula from BiPAP by pulmonology Alert and oriented x 3 Review of Systems Review of Systems: All systems reviewed & are unremarkable except as noted in Subjective Physical Exam Physical Exam: General: Alert, oriented. No acute distress, obese Psych: Appropriate mood and affect Neuro: difficulty with movements in the bed, AAOx3 HEENT: NC/AT CV: RRR Resp: Breath sounds with wheezes bilaterally, no increased effort of breathing Abdomen:firm, nontender Extremities: edema in lower extremities bilaterally, wound vac on LLE. Results & Data Results & Data Vital Signs (Past 12 Hours) Vital Signs Temp Pulse Pulse Resp BP Pulse Ox O2 Del Method 01/06/24 10:42 37.2 C 112 H 23 144/77 H 97 Nasal Cannula 01/06/24 07:37 74 01/06/24 07:30 36.7 C 80 14 125/80 98 BiPAP 01/06/24 07:30 80 18 98 BiPAP 01/06/24 07:25 80 18 98 01/06/24 03:43 68 18 98 01/06/24 02:46 36.5 C 72 20 104/64 96 BiPAP 01/06/24 01:34 61 19 96 01/06/24 00:00 85 22 98 O2 Flow Rate FiO2 01/06/24 10:42 2 01/06/24 07:37 01/06/24 07:30 01/06/24 07:30 30 01/06/24 07:25 30 01/06/24 03:43 30 01/06/24 02:46 01/06/24 01:34 30 01/06/24 00:00 30 Diagnostic Findings Chest X-Ray 01/05/24 15:29 EXAM: Radiograph of the Chest 1 View INDICATION: Weakness and shortness of breath. TECHNIQUE: Frontal view of the chest. Image obtained at 4:09 PM. COMPARISON: 6:48 AM the same day FINDINGS: Lungs and pleural spaces: Shallow inspiration with stable basilar atelectasis and vascular congestion. Trace pleural effusions unchanged. No pneumothorax. Heart: Stable cardiomegaly. Right ventricular pacing device intact and unchanged. Mediastinum: Normal contour. Bones/joints: No fracture, erosion or dislocation. Soft tissues: No abnormality noted. No radiopaque foreign body noted. Tubes, lines and devices: Lines and tubes removed. Upper abdomen: No abnormality noted. IMPRESSION: Shallow inspiration with stable basilar atelectasis and vascular congestion. ACT 112: Negative or not required by law. Electronically signed by Arianna Farr 01-05-2024 4:[address] 01/05/24 18:20 Exam(s): CT CHEST Without Contrast EXAM: CT Chest Without Intravenous Contrast CLINICAL HISTORY: Concern for pneumonia. TECHNIQUE: Axial computed tomography images of the chest without intravenous contrast. CTDI is 28.14 mGy and DLP is 899.64 mGy-cm. Automated exposure control was utilized for the study. A dose lowering technique was utilized adhering to the principles of ALARA. COMPARISON: CT chest 01/03/2023 FINDINGS: Lungs: Bibasilar airspace opacities, left greater than right, favors the appearance of atypical infection and/or aspiration. Pleural space: Unremarkable. No pneumothorax. No significant effusion. Heart: Coronary artery calcifications are present. No cardiomegaly. No significant pericardial effusion. Bones/joints: There are degenerative changes of the spine. No acute fracture. No dislocation. Soft tissues: Unremarkable. Vasculature: Moderate atherosclerosis. Lymph nodes: Unremarkable. No enlarged lymph nodes. Tubes, lines and devices: There is a right cardiac pacer. IMPRESSION: Bibasilar airspace opacities, left greater than right, favors the appearance of atypical infection and/or aspiration. Electronically signed by: Antonella Hidalgo MD 01/05/24 21:[address] 01/05/24 23:17 CR Exam(s): CT HEAD Without Contrast EXAM: CT Head Without Intravenous Contrast CLINICAL HISTORY: Altered mental status. TECHNIQUE: Axial computed tomography images of the head/brain without intravenous contrast. CTDI is 46.85 mGy and DLP is 1404.25 mGy-cm. Automated exposure control was utilized for the study. A dose lowering technique was utilized adhering to the principles of ALARA. COMPARISON: CT head 01/03/2023 FINDINGS: Brain: No intracranial hemorrhage, mass-effect or midline shift. No abnormal extra axial fluid. No evidence of acute infarct. Mild periventricular white matter hypodensities are most consistent with chronic microangiopathy. Ventricles: Unremarkable. No ventriculomegaly. Bones/joints: Unremarkable. No acute fracture. Soft tissues: Unremarkable. Sinuses: There is a fluid level of the right maxillary sinus and right sphenoid sinus concerning for acute sinusitis. Mild mucosal thickening of the ethmoid sinus is also noted. Mastoid air cells: Unremarkable as visualized. No mastoid effusion. IMPRESSION: 1. No acute intracranial finding. 2. There is a fluid level of the right maxillary sinus and right sphenoid sinus concerning for acute sinusitis. Communications: Call Doctor Stroke Electronically signed by: Antonella Hidalgo MD 01/06/24 00:00 AM Head CTA 01/05/24 23:17 CR Exam(s): CTA HEAD With Contrast IV Amt: 118ml EXAM: CT Angiography Head With Intravenous Contrast CLINICAL HISTORY: Altered mental status. TECHNIQUE: Axial computed tomographic angiography images of the head with intravenous contrast. 3D and MIPS images were created and reviewed. CTDI is 46.85 mGy and DLP is 1404.25 mGy-cm. Automated exposure control was utilized for the study. A dose lowering technique was utilized adhering to the principles of ALARA. MIP reconstructed images were created and reviewed. CONTRAST: Patient received 118ml of IV contrast COMPARISON: No relevant prior studies available. FINDINGS: Right internal carotid artery: Mild atherosclerosis of the intracranial portions of the right internal carotid artery without significant stenosis. No aneurysm. Right anterior cerebral artery: Unremarkable. No occlusion or significant stenosis. No aneurysm. Right middle cerebral artery: Unremarkable. No occlusion or significant stenosis. No aneurysm. Right posterior cerebral artery: There is origin of the right CRITICAL CARE CNS, normal variant. No occlusion or significant stenosis. No aneurysm. Right vertebral artery: Unremarkable as visualized. Left internal carotid artery: Mild atherosclerosis of the intracranial portion of the left internal carotid artery without significant stenosis. No aneurysm. Left anterior cerebral artery: Unremarkable. No occlusion or significant stenosis. No aneurysm. Left middle cerebral artery: Unremarkable. No occlusion or significant stenosis. No aneurysm. Left posterior cerebral artery: Unremarkable. No occlusion or significant stenosis. No aneurysm. Left vertebral artery: Unremarkable as visualized. Basilar artery: Unremarkable. No occlusion or significant stenosis. No aneurysm. IMPRESSION: No acute findings in the arteries of the head/brain. Communications: Call Doctor Stroke Electronically signed by: Antonella Hidalgo MD 01/05/24 23:59 PM Neck CTA 01/05/24 23:17 CR Exam(s): CTA NECK With Contrast IV Amt: 118ml EXAM: CT Angiography Neck With Intravenous Contrast CLINICAL HISTORY: Altered mental status. TECHNIQUE: Routine carotid CT angiography protocol was performed with intravenous contrast. NASCET criteria using the distal ICAs for comparison were used for evaluation of stenoses. MIPS images were created and reviewed. CTDI is 46.85 mGy and DLP is 1404.25 mGy-cm. Automated exposure control was utilized for the study. A dose lowering technique was utilized adhering to the principles of ALARA. MIP reconstructed images were created and reviewed. CONTRAST: Patient received 118ml of IV contrast COMPARISON: None. FINDINGS: VASCULATURE: Right common carotid artery: Unremarkable. No occlusion or significant stenosis. No dissection. Right internal carotid artery: There is atherosclerosis of the right carotid bulb without significant stenosis. Mild atherosclerosis of the proximal right ICA without significant stenosis by NASCET criteria. No dissection. Right external carotid artery: Unremarkable. No occlusion. Right vertebral artery: Unremarkable. No occlusion or significant stenosis. No dissection. Left common carotid artery: Unremarkable. No occlusion or significant stenosis. No dissection. Left internal carotid artery: There is atherosclerosis of the left carotid bulb without significant stenosis. Mild atherosclerosis of the proximal left ICA without significant stenosis by NASCET criteria. No dissection. Left external carotid artery: Unremarkable. No occlusion. Left vertebral artery: Unremarkable. No occlusion or significant stenosis. No dissection. NECK: Bones/joints: There are degenerative changes of the spine. No acute fracture. Soft tissues: Unremarkable. Lung apices: Clear. CAROTID STENOSIS REFERENCE USING NASCET CRITERIA: % ICA stenosis = (1 - narrowest ICA diameter/diameter of distal cervical ICA) x 100. Mild - <50% stenosis. Moderate - 50-69% stenosis. Severe - 70-94% stenosis. Near occlusion - 95-99% stenosis. Occluded - 100% stenosis. IMPRESSION: No acute findings of the arteries of the neck. Communications: Call Doctor Stroke Electronically signed by: Atnonella Hidalgo MD 01/06/24 00:01 AM (2) Acute asthma exacerbation Asthma persistence: unspecified Asthma severity: unspecified severity Qualified Code(s): J45.901 - Unspecified asthma with (acute) exacerbation
--- OUTSIDE RECORDS SUMMARY | 2024-01-06 12:32 | External Medical Summary | Summary of Care ---
Author Name Unknown Organization [facility] Address [address] [place] [address] Phone [phone] Care Team Providers Care Tanning Wheel Filler Name Role Phone Anna King MD Primary Care Provide r Reason for Visit * Reason Onset Date Comments Advice 01/05/2024 Encounter Details Date Type Department Care Team (Late st Contact Info) Description 01/05/2024 Telephone Family Medicine [address] [phone] Anna King MD [address] [place] [address] [place] [id number] Advice Allergies Active Allergy Reactions Criticality Noted Date Comments Niacin 09/20/2002 niaspan-flushing Oxycodone-Acetaminophen 08/18/2014 Propoxyphene Napsylate 03/08/2003 rash documented as of this encounter (statuses as of 01/05/2024) Medications ASPIRIN 81 MG PO CHEW Take [...] as of this encounter (statuses as of 01/05/2024) Active Problems Problem Noted Date Diagnosed Date [...] 02/26/19 21 Atherosclerotic heart diseas e of 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 Patient will go to [facility]. * Telephone Encounter - Anna King MD - 01/05/2024 1:44 PM EST I agree with ED * Telephone Encounter - Codi Nuno LPN - 01/05/2024 1:21 PM EST Patient's calling. For 2 days, patient has been experiencing SOB at all times. Wears oxygen 2lpm via nasal cannula. SP O2 94% but he's unable to get a good breath per patient. Heavy chest congestion with intermittent burning. Junky cough, but unable to cough it out. Wheezing Denies fever, chest pains. Yesterday his SP O2 was in the low 80's. She increased his oxygen to 3lpm for a short period - SP 02 recovered to 100% Using Nebulizer and inhalers with minimal relief. No openings in the clinics. Patient saw the wound clinic today and Dr. Tompkins advised the patient to go to the ER. He declined the ER due to the insurance not covering unless it's an emergency. Please advise if you feel the ER is appropriate, if you feel it's emergent he will go. I will call the patient/ back once advised. documented in this encounter Plan of Treatment Upcoming Encounters Date Type Department Care Team (Late st Contact Info) Description 01/18/2024 8:40 AM EST Office Visit Pulmonary Medicine, [address] [place] [id number] Dusty Youssef MD [facility] [place] [phone] 01/25/2024 1:40 PM EST Office Visit Family Medicine [address] [place] [phone] Anna King MD [address] [place] [address] [place] [id number] 03/30/2024 2:00 PM EST Office Visit Cardiology [address] [place] [phone] Wellington Parrish PA-C [address] [place] [id number] 04/04/2024 10:00 AM EST Office Visit Nephrology, [facility] [address] [place] [address] Darwin Barker MD [address] [place] [id number] 04/17/2024 10:30 AM EDT Office Visit Sleep Disorders Ctr [facility] [address] [facility] [place] [phone] Magalys Dexter CRNP [address] [place] [address] 05/01/2024 10:40 AM EDT Office Visit Family Medicine [address] [place] [phone] Manisha Villa [address] [place] [id number] 05/24/2024 10:45 AM EDT Office Visit Urology, [facility] [address] [facility] [place] [address] Torrey Abdi MD [address] [place] [id number] 07/20/2024 1:00 PM EDT Nurse Only Ancillary [address] [place] [phone] [place], Nurse [address] [place] [id number] 07/24/2024 2:20 PM EDT Office Visit Dermatology [address] [place] [phone] Bertha Kapoor PA-C [address] [place] [address] [place] [id number] 11/27/2024 2:00 PM EDT Office Visit Family Medicine [address] [place] [phone] Anna King MD [address] [place] [address] [place] [id number] Scheduled Procedures Name Priority Associated Diagnoses Date/Ti me COLONOSCOPY FLEXIBLE PROXIMAL DIAGNOSTIC Recall History of colon polyps Health Maintenance Due Date Last Done Comments Colonoscopy 12/17/2020 12/17/2017, 10/2017, 11/09/2014, Additional history exists COVID-19 Vaccine ( season) 2023 03/01/2023, 12/19/2021, 12/10/2020, Additional history exists CKD PHOS USE SMARTSET 81650 01/13/202406/2022, 01/11/2023, 01/10/2023, Additional history exists Albumin/Creatinine Ratio 03/01/2024 024, 02/13/2022, 10/25/2014 GFR 06/27/2024 12/29/2023, 11/09, 11/15/2023, Additional history exists Adult Wellness Visit 07/18/2024 07/19/2023, 01/12/2022, 12/10/2020 TSH 11/14/2024 11/15/2023, 03/2023, 01/10/2023, Additional history exists Depression Monitoring 12/08/2024 12/09/2023, 024 CKD HGB USE SMARTSET [id number] 12/28/202412/28, 11/15/2023, 11/15/2023, Additional history exists DTap/Tdap [...] Discussed due to patient's condition Care Teams Tanning Wheel Filler Relationship Specialty Start Date End Date Anna King MD [address] [place] [address] [place] [id number] PCP - General Family Medicine 07/24/13 documented as of this encounter
[2024-01-06] MEDS: predniSONE 20 MG TAB PO SCH (13:29)
[2024-01-06 15:57] LABS: Appearance Urine Clear (Clear); Bacteria Urine Automated None Seen (None Seen); Bilirubin Urine Negative (Negative); Blood Urine Negative (Negative); Color Urine Yellow; Epithelial Cell Urine Auto 0-2 /hpf (0-2); Glucose Urine UA Negative (Negative); Ketones Urine Negative (Negative); Leukocyte Esterase Urine Negative (Negative); Nitrite Urine Negative (Negative); Protein Urine 1+ (Negative); RBC Urine Automated 0-2 /hpf (0-2); Specific Gravity Urine 1.036 (1.000-1.030); Urobilinogen Urine Negative (Negative); WBC Urine Automated 0-5 /hpf (0-5); pH Urine 5.5 (4.5-7.5)
[2024-01-06] MEDS: CEROVITE ADV FORMULA TAB PO SCH (17:17)
[2024-01-06] MEDS: AMOXICILLIN/CLAVULANATE 875 MG TAB PO SCH (17:18)
[2024-01-06] MEDS ORDERED: REMDESIVIR 100 MG in SODIUM CHLORIDE 0.9% 230 ML IV SCH (20:00)
[2024-01-06] MEDS ORDERED: MELATONIN 3 MG TAB PO SCH (21:00)
[2024-01-06 21:41] LABS: Base Excess VBG 9.4 mEq/L; HCO3 VBG 36 mmol/L; Oxygen Saturation VBG 90.7 %; PCO2 VBG 57 mmHg (38-50); PO2 VBG 60 mmHg; pH VBG 7.41 (7.36-7.41)
[2024-01-06] MEDS: MAGNESIUM OXIDE 400 MG TAB PO SCH (22:33)
[2024-01-07 06:42] LABS: Basophils # (auto) 0.01 K/uL (0.00-0.20); Basophils % (auto) 0.1 %; Eosinophils # (auto) 0.02 K/uL (0.00-0.50); Eosinophils % (auto) 0.1 %; Hematocrit (blood only) 37.1 % (42.0-52.0); Hemoglobin 12.2 g/dl (14.0-18.0); Immature Granulocytes # (auto) 0.09 K/uL (0.01-0.20); Immature Granulocytes % (auto) 0.6 %; Lymphocytes # (auto) 0.93 K/uL (1.20-3.40); Lymphocytes % (auto) 5.8 %; Mean Corpuscular Hemoglobin 30.3 pg (25.0-34.0); Mean Corpuscular Hgb Conc 32.9 g/dL (32.0-36.0); Mean Corpuscular Volume 92.1 fL (80.0-100.0); Mean Platelet Volume 10.6 fL (9.4-12.4); Monocytes % (auto) 3.7 %; Neutrophils # (auto) 14.42 K/uL (1.40-6.50); Neutrophils % (auto) 89.7 %; Platelet Count 176 K/uL (130-400); RDW Coefficient of Variation 14.6 % (11.5-14.5); RDW Standard Deviation 49.1 fL (36.4-46.3); Red Blood Count 4.03 M/uL (4.70-6.10); White Blood Count 16.07 K/ul (4.8-10.8)
[2024-01-07 07:00] LABS: BUN Creatinine Ratio 25.2 (10-20); Calcium 9.3 mg/dl (8.6-10.3); Creatinine Clr Calc Pharmacy 51.9 ml/min; Magnesium 2.6 mg/dl (1.7-2.4); Phosphorus 3.3 mg/dl (2.5-4.9); Potassium 3.9 mmol/L (3.5-5.1)
[2024-01-07] MEDS ORDERED: SPIRONOLACTONE 12.5 MG TAB PO SCH (09:00)
--- NOTE | 2024-01-07 09:20 | Pulmonology Progress Note ---
Date of Service January 07, 2024 Assessment & Plan (1) Acute sinusitis: (2) COPD exacerbation: (3) COVID-19: Plan Impression: 83-year-old male admitted with shortness of breath and wheezing found to have acute sinusitis on CT scan. CT of his chest demonstrates only some atelectatic/basilar densities possibly consistent with aspiration event. He had an episode of altered mental status 2 nights ago which was presumptively ascribed to hypercarbic respiratory failure although his pH was not much different from baseline and CO2 was at his baseline levels. He is now back to his baseline. Recommendations: 1. COVID-positive: Minimal parenchymal findings at this point in time. No indication for remdesivir. No PFTs are available. Short burst of prednisone would be reasonable. Can continue Breo, as needed nebulized bronchodilators 2. Chronic hypercarbic respiratory failure: The patient carries a diagnosis of sleep disordered breathing but I am unable to ascertain the severity as a sleep study is not available in our system. Continue nightly CPAP at 10 cm of water. He can follow-up with the [facility] sleep clinic in the outpatient setting. 3. Sinusitis: Management per primary admitting service. 4. Questionable aspiration pneumonia: Complete 5 days of Augmentin 5. Out of bed to chair is much as possible. Incentive spirometry. Thanks for the opportunity participating the care of this patient. Patient is clinically improved and appears back to his pulmonary baseline. Pulmonary will sign off. Feel free to contact us with questions or concerns Admission and Anticipated Discharge Date Admission Date: January 05, 2024 Subjective Patient seen and examined. EMR reviewed. He feels much better this morning. He offers no new pulmonary complaints and specifically denies any coughing, wheezing, or shortness of breath. His oxygen saturations are much better. He tolerated noninvasive positive pressure ventilation last night and states he slept reasonably well. He has no new concerns today Review of Systems 2 Review of Systems: All systems reviewed & are unremarkable except as noted in Subjective Physical Exam 2 Constitutional: + obese; no acute distress, not ill appe aring and not in distress Neck: trachea midline, no thyromegaly Respiratory: no respiratory distress, no labored breathing and not tachypneic Auscultation: + rhonchi Cardiovascular: Rate/Rhythm: + irregularly irregular Heart Sounds: normal S1, normal S2 and + murmur Extremities: no edema Gastrointestinal (Abdomen): normal bowel sounds, soft, nontender, no hepatosplenomegaly Musculoskeletal: Extremities: extremities normal to inspection Skin: no rashes, warm and dry Lymphatic: no cervical lymphadenopathy Results & Data Results & Data Vital Signs (Past 12 Hours) Vital Signs Temp Pulse Pulse Resp BP Pulse Ox O2 Del Method 01/07/24 07:58 73 01/07/24 07:19 36.6 C 88 19 132/78 95 Nasal Cannula 01/07/24 04:08 36.8 C 84 21 135/78 95 BiPAP 01/07/24 02:16 73 19 97 01/06/24 23:21 Nasal Cannula, BiPAP 01/06/24 23:08 36.8 C 77 20 153/90 H 98 BiPAP 01/06/24 21:18 16 97 O2 Flow Rate FiO2 01/07/24 07:58 01/07/24 07:19 2.0 01/07/24 04:08 01/07/24 02:16 30 01/06/24 23:21 01/06/24 23:08 01/06/24 21:18 30 Laboratory Results 01/07/24 06:14 01/07/24 06:14 Diagnostic Findings No new imaging PG Care Time/CCT Total # of Minutes Spent Total Time Spent with Patient: Total time spent is greater than 50% in coordination of care (as documented) at patient's floor/unit and/or counseling patient: Coding Level of Care Code 14494 SUB INP/OBS CARE 2/35MIN Diagnoses Acute sinusitis J01.90 COPD exacerbation J44.1 COVID-19 U07.1
--- NOTE | 2024-01-07 10:57 | Hospitalist Progress Note ---
Date of Service January 07, 2024 Assessment & Plan (1) COVID-19: (2) Acute asthma exacerbation: (3) Acute on chronic respiratory failure with hypoxia and hypercapnia: Plan Patient is a 83-year-old male with past medical history of recurrent aspiration pneumonitis with history of esophageal achalasia, restrictive lung disease, bronchiectasis, RUDY on BiPAP, asthma, tachybradycardia syndrome status post pacemaker, chronic diastolic heart failure, CKD, atrial fibrillation, achalasia, BPH, history of prostatic cancer, depression, generalized anxiety disorder, PTSD, gout, hyperlipidemia and hypothyroidism who presents to the hospital with progressive shortness of breath. COVID-19 infection Acute on chronic hypoxic respiratory failure Asthma exacerbation Possible aspiration pneumonia Obstructive Sleep Apnea Past medical history of recurrent aspiration pneumonitis, restrictive lung disease, bronchiectasis, asthma; presents with shortness of breath and fatigue. Respiratory viral panel positive for COVID-19 infection Chest x-ray showed "shallow inspiration with stable bibasilar atelectasis and vascular congestion" BNP mildly elevated to 94 CT chest concerning for a left greater than right bibasilar airspace opacities, suggestive of an atypical infection or aspiration MRSA nares positive VBG noting chronic hypercapnia on scheduled DuoNebs Was on IV Solu-Medrol Hypertonic saline, flutter valve for airway clearance therapy sputum cx pending zosyn and doxycycline originally ordered speech consult for noted possible aspiration, appreciate recs requiring BiPAP overnight on 01/05/2024 Pulmonology was consulted, appreciate recs. Recommended or stated the following: - transitioned IV Solu-Medrol to p.o. prednisone - continue Breo and as needed bronchodilators -Transition IV Zosyn and doxycycline to p.o. Augmentin for 5 days -nightly CPAP at 10 cm of water. Follow-up with the [facility] sleep clinic in the outpatient setting. improving, no longer on BiPAP per pulmonology Acute Sinusitis Noted on head CT On augmentin as noted above, continue Acute metabolic/toxic encephalopathy Patient with episode of altered mental status overnight on 01/05/2024 Possibly in setting of noted infections above UA currently pending to rule out UTI as another contributory cause Per pulmonology less likely related to chronic hypercapnia Delirium precautions. Frequent reorientation, avoid sedating medications as able Improving Acute Kidney Injury on chronic Kidney Disease Creatinine of 1.39 on admission, went up to 1.41 Has since downtrended to 1.15 Avoid nephrotoxic agents as able Continue to monitor with daily labs Hypermagnesemia Mag noted to be slightly elevated Continue to monitor Chronic anemia hgb 13 , down to 11 Consider further workup if downtrending with iron panel, folate and b12 Continue to monitor with daily labs Wound on left leg continue wound VAC He is finishing up on 7 day course of cefadroxil; held currently on Augmentin as noted above Other chronic conditions: History of achalasia status post balloon dilationreports that he tolerates regular food. Will consider swallow evaluation if clinical suspicion of aspiration is high with a CT chest. Tachybradycardia syndrome status post pacemaker, atrial fibrillationcontinue on diltiazem, metoprolol Eliquis Chronic diastolic heart failureappears compensated, continue on metoprolol, spironolactone, torsemide CADcontinue on aspirin and Lipitor Hypothyroidismcontinue on levothyroxine OSAcontinue CPAP qhs per pulm recs Diet: DMII, HH, [id number], easy to chew DVT prophylaxis: Eliquis Dispo: PT/OT recs for further eval Admission and Anticipated Discharge Date Admission Date: January 05, 2024 Subjective Mr. Alberto was seen multiple times during the day In the a.m. alert and oriented x 3. However having difficulty with sentence formation and expressing his thoughts. Stated that he had no difficulty with breathing. Denied any shortness of breath or chest pain Later notified by nursing that patient was concerned that his home remeron was being held. per patient, when it was held on prior admissions at [facility] he became very paranoid that the doctors were trying to kill him Discussion with patient and his son Tony at phone #[phone]-tgaa understand the risks associated with resuming Remeron such as increasing confusion and agitation and possible delirium and would like to hold Remeron resumed. Attempts to contact patient's were made but were unsuccessful. Review of Systems Review of Systems: All systems reviewed & are unremarkable except as noted in Subjective Physical Exam Physical Exam: General: Alert, oriented. No acute distress, obese Psych: Appropriate mood and affect Neuro: difficulty with movements in the bed, AAOx3 HEENT: NC/AT CV: RRR Resp: Breath sounds with wheezes bilaterally, no increased effort of breathing Abdomen:firm, nontender Extremities: edema in lower extremities bilaterally, wound vac on LLE. Results & Data Results & Data Vital Signs (Past 12 Hours) Vital Signs Temp Pulse Pulse Resp BP Pulse Ox O2 Del Method 01/07/24 07:58 73 01/07/24 07:19 36.6 C 88 19 132/78 95 Nasal Cannula 01/07/24 04:08 36.8 C 84 21 135/78 95 BiPAP 01/07/24 02:16 73 19 97 01/06/24 23:21 Nasal Cannula, BiPAP 01/06/24 23:08 36.8 C 77 20 153/90 H 98 BiPAP O2 Flow Rate FiO2 01/07/24 07:58 01/07/24 07:19 2.0 01/07/24 04:08 01/07/24 02:16 30 01/06/24 23:21 01/06/24 23:08 Diagnostic Findings Chest X-Ray 01/05/24 15:29 EXAM: Radiograph of the Chest 1 View INDICATION: Weakness and shortness of breath. TECHNIQUE: Frontal view of the chest. Image obtained at 4:09 PM. COMPARISON: 6:48 AM the same day FINDINGS: Lungs and pleural spaces: Shallow inspiration with stable basilar atelectasis and vascular congestion. Trace pleural effusions unchanged. No pneumothorax. Heart: Stable cardiomegaly. Right ventricular pacing device intact and unchanged. Mediastinum: Normal contour. Bones/joints: No fracture, erosion or dislocation. Soft tissues: No abnormality noted. No radiopaque foreign body noted. Tubes, lines and devices: Lines and tubes removed. Upper abdomen: No abnormality noted. IMPRESSION: Shallow inspiration with stable basilar atelectasis and vascular congestion. ACT 112: Negative or not required by law. Electronically signed by Arianna Farr 01-05-2024 4:[address] 01/05/24 18:20 Exam(s): CT CHEST Without Contrast EXAM: CT Chest Without Intravenous Contrast CLINICAL HISTORY: Concern for pneumonia. TECHNIQUE: Axial computed tomography images of the chest without intravenous contrast. CTDI is 28.14 mGy and DLP is 899.64 mGy-cm. Automated exposure control was utilized for the study. A dose lowering technique was utilized adhering to the principles of ALARA. COMPARISON: CT chest 01/03/2023 FINDINGS: Lungs: Bibasilar airspace opacities, left greater than right, favors the appearance of atypical infection and/or aspiration. Pleural space: Unremarkable. No pneumothorax. No significant effusion. Heart: Coronary artery calcifications are present. No cardiomegaly. No significant pericardial effusion. Bones/joints: There are degenerative changes of the spine. No acute fracture. No dislocation. Soft tissues: Unremarkable. Vasculature: Moderate atherosclerosis. Lymph nodes: Unremarkable. No enlarged lymph nodes. Tubes, lines and devices: There is a right cardiac pacer. IMPRESSION: Bibasilar airspace opacities, left greater than right, favors the appearance of atypical infection and/or aspiration. Electronically signed by: Antonella Hidalgo MD 01/05/24 21:[address] 01/05/24 23:17 CR Exam(s): CT HEAD Without Contrast EXAM: CT Head Without Intravenous Contrast CLINICAL HISTORY: Altered mental status. TECHNIQUE: Axial computed tomography images of the head/brain without intravenous contrast. CTDI is 46.85 mGy and DLP is 1404.25 mGy-cm. Automated exposure control was utilized for the study. A dose lowering technique was utilized adhering to the principles of ALARA. COMPARISON: CT head 01/03/2023 FINDINGS: Brain: No intracranial hemorrhage, mass-effect or midline shift. No abnormal extra axial fluid. No evidence of acute infarct. Mild periventricular white matter hypodensities are most consistent with chronic microangiopathy. Ventricles: Unremarkable. No ventriculomegaly. Bones/joints: Unremarkable. No acute fracture. Soft tissues: Unremarkable. Sinuses: There is a fluid level of the right maxillary sinus and right sphenoid sinus concerning for acute sinusitis. Mild mucosal thickening of the ethmoid sinus is also noted. Mastoid air cells: Unremarkable as visualized. No mastoid effusion. IMPRESSION: 1. No acute intracranial finding. 2. There is a fluid level of the right maxillary sinus and right sphenoid sinus concerning for acute sinusitis. Communications: Call Doctor Stroke Electronically signed by: Antonella Hidalgo MD 01/06/24 00:00 AM Head CTA 01/05/24 23:17 CR Exam(s): CTA HEAD With Contrast IV Amt: 118ml EXAM: CT Angiography Head With Intravenous Contrast CLINICAL HISTORY: Altered mental status. TECHNIQUE: Axial computed tomographic angiography images of the head with intravenous contrast. 3D and MIPS images were created and reviewed. CTDI is 46.85 mGy and DLP is 1404.25 mGy-cm. Automated exposure control was utilized for the study. A dose lowering technique was utilized adhering to the principles of ALARA. MIP reconstructed images were created and reviewed. CONTRAST: Patient received 118ml of IV contrast COMPARISON: No relevant prior studies available. FINDINGS: Right internal carotid artery: Mild atherosclerosis of the intracranial portions of the right internal carotid artery without significant stenosis. No aneurysm. Right anterior cerebral artery: Unremarkable. No occlusion or significant stenosis. No aneurysm. Right middle cerebral artery: Unremarkable. No occlusion or significant stenosis. No aneurysm. Right posterior cerebral artery: There is origin of the right [employer], normal variant. No occlusion or significant stenosis. No aneurysm. Right vertebral artery: Unremarkable as visualized. Left internal carotid artery: Mild atherosclerosis of the intracranial portion of the left internal carotid artery without significant stenosis. No aneurysm. Left anterior cerebral artery: Unremarkable. No occlusion or significant stenosis. No aneurysm. Left middle cerebral artery: Unremarkable. No occlusion or significant stenosis. No aneurysm. Left posterior cerebral artery: Unremarkable. No occlusion or significant stenosis. No aneurysm. Left vertebral artery: Unremarkable as visualized. Basilar artery: Unremarkable. No occlusion or significant stenosis. No aneurysm. IMPRESSION: No acute findings in the arteries of the head/brain. Communications: Call Doctor Stroke Electronically signed by: Antonella Hidalgo MD 01/05/24 23:59 PM Neck CTA 01/05/24 23:17 CR Exam(s): CTA NECK With Contrast IV Amt: 118ml EXAM: CT Angiography Neck With Intravenous Contrast CLINICAL HISTORY: Altered mental status. TECHNIQUE: Routine carotid CT angiography protocol was performed with intravenous contrast. NASCET criteria using the distal ICAs for comparison were used for evaluation of stenoses. MIPS images were created and reviewed. CTDI is 46.85 mGy and DLP is 1404.25 mGy-cm. Automated exposure control was utilized for the study. A dose lowering technique was utilized adhering to the principles of ALARA. MIP reconstructed images were created and reviewed. CONTRAST: Patient received 118ml of IV contrast COMPARISON: None. FINDINGS: VASCULATURE: Right common carotid artery: Unremarkable. No occlusion or significant stenosis. No dissection. Right internal carotid artery: There is atherosclerosis of the right carotid bulb without significant stenosis. Mild atherosclerosis of the proximal right ICA without significant stenosis by NASCET criteria. No dissection. Right external carotid artery: Unremarkable. No occlusion. Right vertebral artery: Unremarkable. No occlusion or significant stenosis. No dissection. Left common carotid artery: Unremarkable. No occlusion or significant stenosis. No dissection. Left internal carotid artery: There is atherosclerosis of the left carotid bulb without significant stenosis. Mild atherosclerosis of the proximal left ICA without significant stenosis by NASCET criteria. No dissection. Left external carotid artery: Unremarkable. No occlusion. Left vertebral artery: Unremarkable. No occlusion or significant stenosis. No dissection. NECK: Bones/joints: There are degenerative changes of the spine. No acute fracture. Soft tissues: Unremarkable. Lung apices: Clear. CAROTID STENOSIS REFERENCE USING NASCET CRITERIA: % ICA stenosis = (1 - narrowest ICA diameter/diameter of distal cervical ICA) x 100. Mild - <50% stenosis. Moderate - 50-69% stenosis. Severe - 70-94% stenosis. Near occlusion - 95-99% stenosis. Occluded - 100% stenosis. IMPRESSION: No acute findings of the arteries of the neck. Communications: Call Doctor Stroke Electronically signed by: Antonella Hidalgo MD 01/06/24 00:01 AM (2) Acute asthma exacerbation Asthma persistence: unspecified Asthma severity: unspecified severity Qualified Code(s): J45.901 - Unspecified asthma with (acute) exacerbation
[2024-01-08 07:13] LABS: Basophils # (auto) 0.01 K/uL (0.00-0.20); Basophils % (auto) 0.1 %; Eosinophils # (auto) 0.01 K/uL (0.00-0.50); Eosinophils % (auto) 0.1 %; Hematocrit (blood only) 40.8 % (42.0-52.0); Hemoglobin 12.9 g/dl (14.0-18.0); Immature Granulocytes # (auto) 0.13 K/uL (0.01-0.20); Immature Granulocytes % (auto) 0.9 %; Lymphocytes # (auto) 1.68 K/uL (1.20-3.40); Mean Corpuscular Hemoglobin 28.9 pg (25.0-34.0); Mean Corpuscular Hgb Conc 31.6 g/dL (32.0-36.0); Mean Corpuscular Volume 91.5 fL (80.0-100.0); Mean Platelet Volume 10.4 fL (9.4-12.4); Monocytes % (auto) 5.9 %; Platelet Count 180 K/uL (130-400); RDW Coefficient of Variation 14.6 % (11.5-14.5); RDW Standard Deviation 49.2 fL (36.4-46.3); Red Blood Count 4.46 M/uL (4.70-6.10); White Blood Count 15.23 K/ul (4.8-10.8)
[2024-01-08 07:38] LABS: BUN Creatinine Ratio 30.2 (10-20); Calcium 9.1 mg/dl (8.6-10.3); Creatinine Clr Calc Pharmacy 57.3 ml/min; Magnesium 2.4 mg/dl (1.7-2.4); Phosphorus 2.3 mg/dl (2.5-4.9)
[2024-01-08 07:52] LABS: Potassium 4.3 mmol/L (3.5-5.1)
[2024-01-08] MEDS: MAGNESIUM HYDROXIDE SUSP 30 ML UDC PO PRN (08:46)
[2024-01-08] MEDS: POT PHOSPHATE MONOBASIC W/ SOD TAB PO SCH (11:00)
--- NOTE | 2024-01-08 14:56 | Hospitalist Progress Note ---
Date of Service January 08, 2024 Assessment & Plan (1) COVID-19: (2) Acute asthma exacerbation: (3) Acute on chronic respiratory failure with hypoxia and hypercapnia: Plan Patient is a 83-year-old male with past medical history of recurrent aspiration pneumonitis with history of esophageal achalasia, restrictive lung disease, bronchiectasis, RUDY on BiPAP, asthma, tachybradycardia syndrome status post pacemaker, chronic diastolic heart failure, CKD, atrial fibrillation, achalasia, BPH, history of prostatic cancer, depression, generalized anxiety disorder, PTSD, gout, hyperlipidemia and hypothyroidism who presents to the hospital with progressive shortness of breath. COVID-19 infection Acute on chronic hypoxic respiratory failure Asthma exacerbation Possible aspiration pneumonia Obstructive Sleep Apnea Past medical history of recurrent aspiration pneumonitis, restrictive lung disease, bronchiectasis, asthma; presents with shortness of breath and fatigue. Respiratory viral panel positive for COVID-19 infection Chest x-ray showed "shallow inspiration with stable bibasilar atelectasis and vascular congestion" BNP mildly elevated to 94 CT chest concerning for a left greater than right bibasilar airspace opacities, suggestive of an atypical infection or aspiration MRSA nares positive VBG noting chronic hypercapnia on scheduled DuoNebs Was on IV Solu-Medrol Hypertonic saline, flutter valve for airway clearance therapy sputum cx not obtained zosyn and doxycycline originally ordered speech consult for noted possible aspiration, appreciate recs requiring BiPAP overnight on 01/05/2024 Pulmonology was consulted, appreciate recs. Recommended or stated the following: - transitioned IV Solu-Medrol to p.o. prednisone - continue Breo and as needed bronchodilators -Transition IV Zosyn and doxycycline to p.o. Augmentin for 5 days -nightly CPAP at 10 cm of water. Follow-up with the [facility] sleep clinic in the outpatient setting. improving, no longer on BiPAP per pulmonology Acute Sinusitis Noted on head CT On augmentin as noted above, continue Acute metabolic/toxic encephalopathy Patient with episode of altered mental status overnight on 01/05/2024 Possibly in setting of noted infections above UA currently pending to rule out UTI as another contributory cause Per pulmonology less likely related to chronic hypercapnia Delirium precautions. Frequent reorientation, avoid sedating medications as able patient and family concerned about home Remeron that was held in setting of acute infection. Discussion of risks of increasing confusion or delirium, etc while hospitalized, patient and son agreeable to risks and would like it resumed. Remeron resumed on 01/07/2024. Improving Acute Kidney Injury on chronic Kidney Disease Creatinine of 1.39 on admission, went up to 1.41 Has since downtrended Avoid nephrotoxic agents as able Continue to monitor with daily labs Hypermagnesemia Mag noted to be slightly elevated Discontinued home mag supplement Continue to monitor Resolved Chronic anemia hgb 13 , down to 11 Consider further workup if downtrending with iron panel, folate and b12 Continue to monitor with daily labs Wound on left leg continue wound VAC He is finishing up on 7 day course of cefadroxil; held currently on Augmentin as noted above Other chronic conditions: History of achalasia status post balloon dilationreports that he tolerates regular food. Will consider swallow evaluation if clinical suspicion of aspiration is high with a CT chest. Tachybradycardia syndrome status post pacemaker, atrial fibrillationcontinue on diltiazem, metoprolol Eliquis Chronic diastolic heart failureappears compensated, continue on metoprolol, spironolactone, torsemide CADcontinue on aspirin and Lipitor Hypothyroidismcontinue on levothyroxine OSAcontinue CPAP qhs per pulm recs Diet: DMII, HH, [id number], easy to chew DVT prophylaxis: [place] Dispo: PT/OT recs for further eval Admission and Anticipated Discharge Date Admission Date: January 05, 2024 Subjective Patient was seen in the a.m. laying in bed Per nursing had just had a large bowel movement Alert and oriented x 3, no acute episodes of confusion overnight Nursing noting however that when patient is laid flat like for cleaning after bowel movement he does desaturate However patient noting no shortness of breath, chest pain or palpitations during the exam Review of Systems Review of Systems: All systems reviewed & are unremarkable except as noted in Subjective Physical Exam Physical Exam: General: Alert, oriented. No acute distress, obese Psych: Appropriate mood and affect Neuro: difficulty with movements in the bed, AAOx3 HEENT: NC/AT CV: RRR Resp: Breath sounds with wheezes bilaterally, no increased effort of breathing Abdomen:firm, nontender Extremities: edema in lower extremities bilaterally, wound vac on LLE. Results & Data Results & Data Vital Signs (Past 12 Hours) Vital Signs Temp Pulse Pulse Resp BP Pulse Ox O2 Del Method 01/08/24 11:48 36.3 C L 77 19 126/68 90 Nasal Cannula 01/08/24 08:00 Nasal Cannula 01/08/24 07:43 36.6 C 86 19 138/74 92 Nasal Cannula 01/08/24 07:00 87 01/08/24 03:21 36.3 C L 73 18 132/73 92 Nasal Cannula O2 Flow Rate 01/08/24 11:48 1 01/08/24 08:00 01/08/24 07:43 01/08/24 07:00 01/08/24 03:21 1.0 Diagnostic Findings Chest X-Ray 01/05/24 15:29 EXAM: Radiograph of the Chest 1 View INDICATION: Weakness and shortness of breath. TECHNIQUE: Frontal view of the chest. Image obtained at 4:09 PM. COMPARISON: 6:48 AM the same day FINDINGS: Lungs and pleural spaces: Shallow inspiration with stable basilar atelectasis and vascular congestion. Trace pleural effusions unchanged. No pneumothorax. Heart: Stable cardiomegaly. Right ventricular pacing device intact and unchanged. Mediastinum: Normal contour. Bones/joints: No fracture, erosion or dislocation. Soft tissues: No abnormality noted. No radiopaque foreign body noted. Tubes, lines and devices: Lines and tubes removed. Upper abdomen: No abnormality noted. IMPRESSION: Shallow inspiration with stable basilar atelectasis and vascular congestion. ACT 112: Negative or not required by law. Electronically signed by Arianna Farr 01-05-2024 4:[address] 01/05/24 18:20 Exam(s): CT CHEST Without Contrast EXAM: CT Chest Without Intravenous Contrast CLINICAL HISTORY: Concern for pneumonia. TECHNIQUE: Axial computed tomography images of the chest without intravenous contrast. CTDI is 28.14 mGy and DLP is 899.64 mGy-cm. Automated exposure control was utilized for the study. A dose lowering technique was utilized adhering to the principles of ALARA. COMPARISON: CT chest 01/03/2023 FINDINGS: Lungs: Bibasilar airspace opacities, left greater than right, favors the appearance of atypical infection and/or aspiration. Pleural space: Unremarkable. No pneumothorax. No significant effusion. Heart: Coronary artery calcifications are present. No cardiomegaly. No significant pericardial effusion. Bones/joints: There are degenerative changes of the spine. No acute fracture. No dislocation. Soft tissues: Unremarkable. Vasculature: Moderate atherosclerosis. Lymph nodes: Unremarkable. No enlarged lymph nodes. Tubes, lines and devices: There is a right cardiac pacer. IMPRESSION: Bibasilar airspace opacities, left greater than right, favors the appearance of atypical infection and/or aspiration. Electronically signed by: Antonella Hidalgo MD 01/05/24 21:[address] 01/05/24 23:17 CR Exam(s): CT HEAD Without Contrast EXAM: CT Head Without Intravenous Contrast CLINICAL HISTORY: Altered mental status. TECHNIQUE: Axial computed tomography images of the head/brain without intravenous contrast. CTDI is 46.85 mGy and DLP is 1404.25 mGy-cm. Automated exposure control was utilized for the study. A dose lowering technique was utilized adhering to the principles of ALARA. COMPARISON: CT head 01/03/2023 FINDINGS: Brain: No intracranial hemorrhage, mass-effect or midline shift. No abnormal extra axial fluid. No evidence of acute infarct. Mild periventricular white matter hypodensities are most consistent with chronic microangiopathy. Ventricles: Unremarkable. No ventriculomegaly. Bones/joints: Unremarkable. No acute fracture. Soft tissues: Unremarkable. Sinuses: There is a fluid level of the right maxillary sinus and right sphenoid sinus concerning for acute sinusitis. Mild mucosal thickening of the ethmoid sinus is also noted. Mastoid air cells: Unremarkable as visualized. No mastoid effusion. IMPRESSION: 1. No acute intracranial finding. 2. There is a fluid level of the right maxillary sinus and right sphenoid sinus concerning for acute sinusitis. Communications: Call Doctor Stroke Electronically signed by: Antonella Hidalgo MD 01/06/24 00:00 AM Head CTA 01/05/24 23:17 CR Exam(s): CTA HEAD With Contrast IV Amt: 118ml EXAM: CT Angiography Head With Intravenous Contrast CLINICAL HISTORY: Altered mental status. TECHNIQUE: Axial computed tomographic angiography images of the head with intravenous contrast. 3D and MIPS images were created and reviewed. CTDI is 46.85 mGy and DLP is 1404.25 mGy-cm. Automated exposure control was utilized for the study. A dose lowering technique was utilized adhering to the principles of ALARA. MIP reconstructed images were created and reviewed. CONTRAST: Patient received 118ml of IV contrast COMPARISON: No relevant prior studies available. FINDINGS: Right internal carotid artery: Mild atherosclerosis of the intracranial portions of the right internal carotid artery without significant stenosis. No aneurysm. Right anterior cerebral artery: Unremarkable. No occlusion or significant stenosis. No aneurysm. Right middle cerebral artery: Unremarkable. No occlusion or significant stenosis. No aneurysm. Right posterior cerebral artery: There is origin of the right [employer], normal variant. No occlusion or significant stenosis. No aneurysm. Right vertebral artery: Unremarkable as visualized. Left internal carotid artery: Mild atherosclerosis of the intracranial portion of the left internal carotid artery without significant stenosis. No aneurysm. Left anterior cerebral artery: Unremarkable. No occlusion or significant stenosis. No aneurysm. Left middle cerebral artery: Unremarkable. No occlusion or significant stenosis. No aneurysm. Left posterior cerebral artery: Unremarkable. No occlusion or significant stenosis. No aneurysm. Left vertebral artery: Unremarkable as visualized. Basilar artery: Unremarkable. No occlusion or significant stenosis. No aneurysm. IMPRESSION: No acute findings in the arteries of the head/brain. Communications: Call Doctor Stroke Electronically signed by: Antonella Hidalgo MD 01/05/24 23:59 PM Neck CTA 01/05/24 23:17 CR Exam(s): CTA NECK With Contrast IV Amt: 118ml EXAM: CT Angiography Neck With Intravenous Contrast CLINICAL HISTORY: Altered mental status. TECHNIQUE: Routine carotid CT angiography protocol was performed with intravenous contrast. NASCET criteria using the distal ICAs for comparison were used for evaluation of stenoses. MIPS images were created and reviewed. CTDI is 46.85 mGy and DLP is 1404.25 mGy-cm. Automated exposure control was utilized for the study. A dose lowering technique was utilized adhering to the principles of ALARA. MIP reconstructed images were created and reviewed. CONTRAST: Patient received 118ml of IV contrast COMPARISON: None. FINDINGS: VASCULATURE: Right common carotid artery: Unremarkable. No occlusion or significant stenosis. No dissection. Right internal carotid artery: There is atherosclerosis of the right carotid bulb without significant stenosis. Mild atherosclerosis of the proximal right ICA without significant stenosis by NASCET criteria. No dissection. Right external carotid artery: Unremarkable. No occlusion. Right vertebral artery: Unremarkable. No occlusion or significant stenosis. No dissection. Left common carotid artery: Unremarkable. No occlusion or significant stenosis. No dissection. Left internal carotid artery: There is atherosclerosis of the left carotid bulb without significant stenosis. Mild atherosclerosis of the proximal left ICA without significant stenosis by NASCET criteria. No dissection. Left external carotid artery: Unremarkable. No occlusion. Left vertebral artery: Unremarkable. No occlusion or significant stenosis. No dissection. NECK: Bones/joints: There are degenerative changes of the spine. No acute fracture. Soft tissues: Unremarkable. Lung apices: Clear. CAROTID STENOSIS REFERENCE USING NASCET CRITERIA: % ICA stenosis = (1 - narrowest ICA diameter/diameter of distal cervical ICA) x 100. Mild - <50% stenosis. Moderate - 50-69% stenosis. Severe - 70-94% stenosis. Near occlusion - 95-99% stenosis. Occluded - 100% stenosis. IMPRESSION: No acute findings of the arteries of the neck. Communications: Call Doctor Stroke Electronically signed by: Antonella Hidalgo MD 01/06/24 00:01 AM (2) Acute asthma exacerbation Asthma persistence: unspecified Asthma severity: unspecified severity Qualified Code(s): J45.901 - Unspecified asthma with (acute) exacerbation
[2024-01-09 07:50] LABS: Basophils # (auto) 0.01 K/uL (0.00-0.20); Basophils % (auto) 0.1 %; Eosinophils # (auto) 0.06 K/uL (0.00-0.50); Eosinophils % (auto) 0.5 %; Hemoglobin 13.2 g/dl (14.0-18.0); Immature Granulocytes # (auto) 0.12 K/uL (0.01-0.20); Immature Granulocytes % (auto) 0.9 %; Lymphocytes # (auto) 2.15 K/uL (1.20-3.40); Lymphocytes % (auto) 16.2 %; Mean Corpuscular Hgb Conc 32.2 g/dL (32.0-36.0); Mean Corpuscular Volume 93.2 fL (80.0-100.0); Mean Platelet Volume 10.2 fL (9.4-12.4); Monocytes # (auto) 1.08 K/uL (0.11-0.59); Monocytes % (auto) 8.1 %; Neutrophils # (auto) 9.85 K/uL (1.40-6.50); Neutrophils % (auto) 74.2 %; Platelet Count 182 K/uL (130-400); RDW Coefficient of Variation 14.5 % (11.5-14.5); RDW Standard Deviation 49.5 fL (36.4-46.3); White Blood Count 13.27 K/ul (4.8-10.8)
[2024-01-09 08:10] LABS: BUN Creatinine Ratio 30.6 (10-20); Calcium 9.2 mg/dl (8.6-10.3); Creatinine Clr Calc Pharmacy 62.5 ml/min; Magnesium 2.4 mg/dl (1.7-2.4); Phosphorus 2.7 mg/dl (2.5-4.9); Potassium 4.4 mmol/L (3.5-5.1)
[2024-01-09] MEDS: ALBUT/IPRATROP 3MG/0.5MG NEB 3 ML VIAL NEB PRN (11:16)
--- NOTE | 2024-01-09 11:54 | Hospitalist Progress Note ---
Date of Service January 09, 2024 Assessment & Plan (1) COVID-19: (2) Acute asthma exacerbation: (3) Acute on chronic respiratory failure with hypoxia and hypercapnia: Plan Patient is a 83-year-old male with past medical history of recurrent aspiration pneumonitis with history of esophageal achalasia, restrictive lung disease, bronchiectasis, RUDY on BiPAP, asthma, tachybradycardia syndrome status post pacemaker, chronic diastolic heart failure, CKD, atrial fibrillation, achalasia, BPH, history of prostatic cancer, depression, generalized anxiety disorder, PTSD, gout, hyperlipidemia and hypothyroidism who presents to the hospital with progressive shortness of breath. COVID-19 infection Acute on chronic hypoxic respiratory failure Asthma exacerbation Possible aspiration pneumonia Obstructive Sleep Apnea Past medical history of recurrent aspiration pneumonitis, restrictive lung disease, bronchiectasis, asthma; presents with shortness of breath and fatigue. Respiratory viral panel positive for COVID-19 infection Chest x-ray showed "shallow inspiration with stable bibasilar atelectasis and vascular congestion" BNP mildly elevated to 94 CT chest concerning for a left greater than right bibasilar airspace opacities, suggestive of an atypical infection or aspiration MRSA nares positive VBG noting chronic hypercapnia on scheduled DuoNebs Was on IV Solu-Medrol Hypertonic saline, flutter valve for airway clearance therapy sputum cx not obtained zosyn and doxycycline originally ordered speech consult for noted possible aspiration, appreciate recs requiring BiPAP overnight on 01/05/2024 Pulmonology was consulted, appreciate recs. Recommended or stated the following: - transitioned IV Solu-Medrol to p.o. prednisone - continue Breo and as needed bronchodilators -Transition IV Zosyn and doxycycline to p.o. Augmentin for 5 days -nightly CPAP at 10 cm of water. Follow-up with the [facility] sleep clinic in the outpatient setting. improving, no longer on BiPAP per pulmonology, currently back to baseline Acute Sinusitis Noted on head CT On augmentin as noted above, continue for 5 days Acute metabolic/toxic encephalopathy Patient with episode of altered mental status overnight on 01/05/2024 Possibly in setting of noted infections above UA currently pending to rule out UTI as another contributory cause Per pulmonology less likely related to chronic hypercapnia Delirium precautions. Frequent reorientation, avoid sedating medications as able patient and family concerned about home Remeron that was held in setting of acute infection. Discussion of risks of increasing confusion or delirium, etc while hospitalized, patient and son agreeable to risks and would like it resumed. Remeron resumed on 01/07/2024. Improving Acute Kidney Injury on chronic Kidney Disease Creatinine of 1.39 on admission, went up to 1.41 Has since downtrended Avoid nephrotoxic agents as able Continue to monitor with daily labs Hypermagnesemia Mag noted to be slightly elevated Discontinued home mag supplement Continue to monitor Resolved Chronic anemia hgb 13 , down to 11 Consider further workup if downtrending with iron panel, folate and b12 Continue to monitor with daily labs Wound on left leg continue wound VAC He is finishing up on 7 day course of cefadroxil; held currently on Augmentin as noted above Other chronic conditions: History of achalasia status post balloon dilationreports that he tolerates regular food. Will consider swallow evaluation if clinical suspicion of aspiration is high with a CT chest. Tachybradycardia syndrome status post pacemaker, atrial fibrillationcontinue on diltiazem, metoprolol Eliquis Chronic diastolic heart failureappears compensated, continue on metoprolol, spironolactone, torsemide CADcontinue on aspirin and Lipitor Hypothyroidismcontinue on levothyroxine OSAcontinue CPAP qhs per pulm recs Diet: DMII, HH, [id number], easy to chew DVT prophylaxis: Eliquis Dispo: PT/OT recommending acute rehab Admission and Anticipated Discharge Date Admission Date: January 05, 2024 Subjective patient was seen laying in bed Denied acute concerns, per nursing alert and oriented no acute events overnight Patient alert and oriented x 3 on exam patient's son Tony contacted at number [phone] and updated per patient request. Requesting a case management contacted his mother/pt's to discuss placement. Review of Systems Review of Systems: All systems reviewed & are unremarkable except as noted in Subjective Physical Exam Physical Exam: General: Alert, oriented. No acute distress, obese Psych: Appropriate mood and affect Neuro: difficulty with movements in the bed, AAOx3 HEENT: NC/AT CV: RRR Resp: Breath sounds with wheezes bilaterally, no increased effort of breathing Abdomen:firm, nontender Extremities: edema in lower extremities bilaterally, wound vac on LLE. Results & Data Results & Data Vital Signs (Past 12 Hours) Vital Signs Temp Pulse Pulse Resp BP BP Pulse Ox 01/09/24 11:16 72 14 93 01/09/24 10:59 36.7 C 74 19 126/72 94 01/09/24 08:00 01/09/24 07:43 36.4 C L 80 19 125/77 92 01/09/24 07:00 64 01/09/24 03:25 36.8 C 87 22 166/77 H 97 01/09/24 02:33 74 16 92 O2 Del Method O2 Flow Rate FiO2 01/09/24 11:16 Nasal Cannula 2 01/09/24 10:59 Nasal Cannula 2 01/09/24 08:00 Nasal Cannula 2 01/09/24 07:43 Nasal Cannula 01/09/24 07:00 01/09/24 03:25 Nasal Cannula 01/09/24 02:33 30 (2) Acute asthma exacerbation Asthma persistence: unspecified Asthma severity: unspecified severity Qualified Code(s): J45.901 - Unspecified asthma with (acute) exacerbation
[2024-01-09] MEDS: ALBUT/IPRATROP 3MG/0.5MG NEB 3 ML VIAL NEB STA (21:51)
[2024-01-09] MEDS: FUROSEMIDE INJ 20 MG/2 ML VIAL IV ONE (22:33)
--- NOTE | 2024-01-10 01:00 | XRay Report ---
Exam(s): XR CXR 1 VIEW EXAM: XR Chest, 1 View CLINICAL HISTORY: Reason for exam: wheezing. TECHNIQUE: Frontal view of the chest. COMPARISON: 01/05/2024 FINDINGS: Lungs: Unremarkable. No consolidation. Right chest wall intracardiac device Pleural space: Unremarkable. No pneumothorax. Heart: Unremarkable. No cardiomegaly. Mediastinum: Unremarkable. Normal mediastinal contour. Bones/joints: Postoperative changes in the lower thoracic and upper lumbar spine. No acute fracture. IMPRESSION: Normal chest x-ray. Electronically signed by: Henrry Horvath MD 01/10/24 00:59 AM
[2024-01-10 08:03] LABS: Basophils # (auto) 0.02 K/uL (0.00-0.20); Basophils % (auto) 0.2 %; Eosinophils # (auto) 0.07 K/uL (0.00-0.50); Eosinophils % (auto) 0.6 %; Hematocrit (blood only) 42.6 % (42.0-52.0); Hemoglobin 13.4 g/dl (14.0-18.0); Immature Granulocytes # (auto) 0.15 K/uL (0.01-0.20); Immature Granulocytes % (auto) 1.3 %; Lymphocytes # (auto) 1.65 K/uL (1.20-3.40); Mean Corpuscular Hemoglobin 29.6 pg (25.0-34.0); Mean Corpuscular Hgb Conc 31.5 g/dL (32.0-36.0); Mean Platelet Volume 10.4 fL (9.4-12.4); Monocytes # (auto) 0.93 K/uL (0.11-0.59); Monocytes % (auto) 7.9 %; Neutrophils # (auto) 8.97 K/uL (1.40-6.50); Platelet Count 196 K/uL (130-400); RDW Coefficient of Variation 14.6 % (11.5-14.5); RDW Standard Deviation 50.6 fL (36.4-46.3); Red Blood Count 4.53 M/uL (4.70-6.10); White Blood Count 11.79 K/ul (4.8-10.8)
[2024-01-10 08:18] LABS: Calcium 8.9 mg/dl (8.6-10.3); Creatinine Clr Calc Pharmacy 54.7 ml/min; Magnesium 2.2 mg/dl (1.7-2.4); Phosphorus 3.6 mg/dl (2.5-4.9); Potassium 4.1 mmol/L (3.5-5.1)
--- NOTE | 2024-01-10 13:35 | Hospitalist Progress Note ---
Date of Service January 10, 2024 Assessment & Plan (1) COVID-19: (2) Acute asthma exacerbation: (3) Acute on chronic respiratory failure with hypoxia and hypercapnia: Plan Patient is a 83-year-old male with past medical history of recurrent aspiration pneumonitis with history of esophageal achalasia, restrictive lung disease, bronchiectasis, RUDY on BiPAP, asthma, tachybradycardia syndrome status post pacemaker, chronic diastolic heart failure, CKD, atrial fibrillation, achalasia, BPH, history of prostatic cancer, depression, generalized anxiety disorder, PTSD, gout, hyperlipidemia and hypothyroidism who presents to the hospital with progressive shortness of breath. COVID-19 infection Acute on chronic hypoxic respiratory failure Asthma exacerbation Possible aspiration pneumonia Obstructive Sleep Apnea Past medical history of recurrent aspiration pneumonitis, restrictive lung disease, bronchiectasis, asthma; presents with shortness of breath and fatigue. Respiratory viral panel positive for COVID-19 infection Chest x-ray showed "shallow inspiration with stable bibasilar atelectasis and vascular congestion" BNP mildly elevated to 94 CT chest concerning for a left greater than right bibasilar airspace opacities, suggestive of an atypical infection or aspiration MRSA nares positive VBG noting chronic hypercapnia on scheduled DuoNebs Was on IV Solu-Medrol Hypertonic saline, flutter valve for airway clearance therapy sputum cx not obtained zosyn and doxycycline originally ordered speech consult for noted possible aspiration, appreciate recs requiring BiPAP overnight on 01/05/2024 Pulmonology was consulted, appreciate recs. Recommended or stated the following: - transitioned IV Solu-Medrol to p.o. prednisone - continue Breo and as needed bronchodilators -Transition IV Zosyn and doxycycline to p.o. Augmentin for 5 days -nightly CPAP at 10 cm of water. Follow-up with the [facility] sleep clinic in the outpatient setting. improving, no longer on BiPAP per pulmonology, currently back to baseline Acute Sinusitis Noted on head CT On augmentin as noted above, continue for 5 days Acute metabolic/toxic encephalopathy Patient with episode of altered mental status overnight on 01/05/2024 Possibly in setting of noted infections above UA currently pending to rule out UTI as another contributory cause Per pulmonology less likely related to chronic hypercapnia Delirium precautions. Frequent reorientation, avoid sedating medications as able patient and family concerned about home Remeron that was held in setting of acute infection. Discussion of risks of increasing confusion or delirium, etc while hospitalized, patient and son agreeable to risks and would like it resumed. Remeron resumed on 01/07/2024. Improving Acute Kidney Injury on chronic Kidney Disease Creatinine of 1.39 on admission, went up to 1.41 Has since downtrended Avoid nephrotoxic agents as able Continue to monitor with daily labs Hypermagnesemia Mag noted to be slightly elevated Discontinued home mag supplement Continue to monitor Resolved Chronic anemia hgb 13 , down to 11 Consider further workup if downtrending with iron panel, folate and b12 Continue to monitor with daily labs Wound on left leg continued wound VAC until 01/09 when evaluated by wound care Outpt wound clinic contacted He is finishing up on 7 day course of cefadroxil; held currently on Augmentin as noted above Other chronic conditions: History of achalasia status post balloon dilationreports that he tolerates regular food. Will consider swallow evaluation if clinical suspicion of aspiration is high with a CT chest. Tachybradycardia syndrome status post pacemaker, atrial fibrillationcontinue on diltiazem, metoprolol Eliquis Chronic diastolic heart failureappears compensated, continue on metoprolol, spironolactone, torsemide CADcontinue on aspirin and Lipitor Hypothyroidismcontinue on levothyroxine OSAcontinue CPAP qhs per pulm recs Diet: DMII, HH, [id number], easy to chew DVT prophylaxis: Eliquis Dispo: PT/OT recommending acute rehab Admission and Anticipated Discharge Date Admission Date: January 05, 2024 Subjective patient was seen laying in bed Denied acute concerns, per nursing alert and oriented no acute events overnight later notified by wound care that patient was concerned about wound VAC. Wound care contacted outpatient wound Review of Systems Review of Systems: All systems reviewed & are unremarkable except as noted in Subjective Physical Exam Physical Exam: General: Alert, oriented. No acute distress, obese Psych: Appropriate mood and affect Neuro: difficulty with movements in the bed, AAOx3 HEENT: NC/AT CV: RRR Resp: Breath sounds with wheezes bilaterally, no increased effort of breathing Abdomen:firm, nontender Extremities: edema in lower extremities bilaterally Results & Data Results & Data Vital Signs (Past 12 Hours) Vital Signs Temp Pulse Pulse Resp BP BP Pulse Ox 01/10/24 12:04 36.7 C 77 19 122/72 94 01/10/24 10:54 67 15 92 01/10/24 08:00 01/10/24 07:42 36.4 C L 86 20 134/72 91 01/10/24 07:00 68 01/10/24 03:41 36.6 C 71 20 118/90 94 O2 Del Method O2 Flow Rate 01/10/24 12:04 Room Air 01/10/24 10:54 Nasal Cannula 2 01/10/24 08:00 Nasal Cannula 2 01/10/24 07:42 Nasal Cannula 2 01/10/24 07:00 01/10/24 03:41 BiPAP (2) Acute asthma exacerbation Asthma persistence: unspecified Asthma severity: unspecified severity Qualified Code(s): J45.901 - Unspecified asthma with (acute) exacerbation
[2024-01-11 09:17] LABS: BUN Creatinine Ratio 19.8 (10-20); Calcium 8.8 mg/dl (8.6-10.3); Creatinine Clr Calc Pharmacy 57.4 ml/min; Magnesium 2.2 mg/dl (1.7-2.4); Phosphorus 2.8 mg/dl (2.5-4.9); Potassium 4.1 mmol/L (3.5-5.1)
[2024-01-11 09:37] LABS: Basophils # (auto) 0.02 K/uL (0.00-0.20); Basophils % (auto) 0.1 %; Eosinophils # (auto) 0.13 K/uL (0.00-0.50); Hematocrit (blood only) 39.7 % (42.0-52.0); Hemoglobin 12.8 g/dl (14.0-18.0); Immature Granulocytes # (auto) 0.15 K/uL (0.01-0.20); Immature Granulocytes % (auto) 1.1 %; Lymphocytes # (auto) 1.53 K/uL (1.20-3.40); Lymphocytes % (auto) 11.5 %; Mean Corpuscular Hgb Conc 32.2 g/dL (32.0-36.0); Mean Corpuscular Volume 93.2 fL (80.0-100.0); Mean Platelet Volume 10.5 fL (9.4-12.4); Monocytes # (auto) 0.63 K/uL (0.11-0.59); Monocytes % (auto) 4.7 %; Neutrophils # (auto) 10.89 K/uL (1.40-6.50); Neutrophils % (auto) 81.6 %; Platelet Count 206 K/uL (130-400); RDW Coefficient of Variation 14.5 % (11.5-14.5); RDW Standard Deviation 49.3 fL (36.4-46.3); Red Blood Count 4.26 M/uL (4.70-6.10); White Blood Count 13.35 K/ul (4.8-10.8)
--- NOTE | 2024-01-11 14:11 | Hospitalist Progress Note ---
Date of Service January 11, 2024 Assessment & Plan (1) COVID-19: (2) Acute asthma exacerbation: (3) Acute on chronic respiratory failure with hypoxia and hypercapnia: Plan Patient is a 83-year-old male with past medical history of recurrent aspiration pneumonitis with history of esophageal achalasia, restrictive lung disease, bronchiectasis, RUDY on BiPAP, asthma, tachybradycardia syndrome status post pacemaker, chronic diastolic heart failure, CKD, atrial fibrillation, achalasia, BPH, history of prostatic cancer, depression, generalized anxiety disorder, PTSD, gout, hyperlipidemia and hypothyroidism who presents to the hospital with progressive shortness of breath. COVID-19 infection Acute on chronic hypoxic respiratory failure Asthma exacerbation Possible aspiration pneumonia Obstructive Sleep Apnea Past medical history of recurrent aspiration pneumonitis, restrictive lung disease, bronchiectasis, asthma; presents with shortness of breath and fatigue. Respiratory viral panel positive for COVID-19 infection Chest x-ray showed "shallow inspiration with stable bibasilar atelectasis and vascular congestion" BNP mildly elevated to 94 CT chest concerning for a left greater than right bibasilar airspace opacities, suggestive of an atypical infection or aspiration MRSA nares positive VBG noting chronic hypercapnia on scheduled DuoNebs Was on IV Solu-Medrol Hypertonic saline, flutter valve for airway clearance therapy sputum cx not obtained zosyn and doxycycline originally ordered speech consult for noted possible aspiration, appreciate recs requiring BiPAP overnight on 01/05/2024 Pulmonology was consulted, appreciate recs. Recommended or stated the following: - transitioned IV Solu-Medrol to p.o. prednisone - continue Breo and as needed bronchodilators -Transition IV Zosyn and doxycycline to p.o. Augmentin for 5 days -nightly CPAP at 10 cm of water. Follow-up with the [facility] sleep clinic in the outpatient setting. improving, no longer on BiPAP per pulmonology, currently back to baseline Completed 5 days of abx and prednisone per pulmonology recs Acute Sinusitis Noted on head CT On augmentin as noted above, treated for 5 days Acute metabolic/toxic encephalopathy Patient with episode of altered mental status overnight on 01/05/2024 Possibly in setting of noted infections above UA currently pending to rule out UTI as another contributory cause Per pulmonology less likely related to chronic hypercapnia Delirium precautions. Frequent reorientation, avoid sedating medications as able patient and family concerned about home Remeron that was held in setting of acute infection. Discussion of risks of increasing confusion or delirium, etc while hospitalized, patient and son agreeable to risks and would like it resumed. Remeron resumed on 01/07/2024. Improved and back to baseline Acute Kidney Injury on chronic Kidney Disease Creatinine of 1.39 on admission, went up to 1.41 Has since downtrended Avoid nephrotoxic agents as able Continue to monitor with daily labs Currently wnl Hypermagnesemia Mag noted to be slightly elevated Discontinued home mag supplement Continue to monitor Resolved Chronic anemia hgb 13 , down to 11 Consider further workup if downtrending with iron panel, folate and b12 Continue to monitor with daily labs Currently in 12-13 range Wound on left leg Pt presented with a wound vac on LLE continued wound VAC until 01/09 when evaluated by wound care Outpt wound clinic contacted by wound care nurse, orders placed He was finishing up a 7 day course of cefadroxil on admission; held Was on Augmentin as noted above Does not appear to currently be infected wound vac off since 01/09- wound care nurse attempting to reach pt's outpt wound center for further recs which are pending at this time. Other chronic conditions: History of achalasia status post balloon dilationreports that he tolerates regular food. Will consider swallow evaluation if clinical suspicion of aspiration is high with a CT chest. Tachybradycardia syndrome status post pacemaker, atrial fibrillationcontinue on diltiazem, metoprolol, Eliquis Chronic diastolic heart failureappears compensated, continue on metoprolol, spironolactone, torsemide CADcontinue on aspirin and Lipitor Hypothyroidismcontinue on levothyroxine OSAcontinue CPAP qhs per pulm recs Diet: DMII, HH, [id number], easy to chew DVT prophylaxis: Eliquis Dispo: PT/OT recommending acute rehab Admission and Anticipated Discharge Date Admission Date: January 05, 2024 Subjective patient was seen laying in bed Denied acute concerns No acute events overnight Per wound care nurse, still waiting on further recs from outpt wound clinic Review of Systems Review of Systems: All systems reviewed & are unremarkable except as noted in Subjective Physical Exam Physical Exam: General: Alert, oriented. No acute distress, obese Psych: Appropriate mood and affect Neuro: difficulty with movements in the bed, AAOx3 HEENT: NC/AT CV: RRR Resp: Breath sounds with wheezes bilaterally, no increased effort of breathing Abdomen:firm, nontender Extremities: edema in lower extremities bilaterally Results & Data Results & Data Vital Signs (Past 12 Hours) Vital Signs Temp Pulse Pulse Pulse Resp BP BP 01/11/24 10:10 36.4 C L 83 16 120/76 01/11/24 09:03 80 01/11/24 07:46 36.4 C L 73 17 161/89 H 01/11/24 07:33 86 20 01/11/24 02:47 81 18 01/11/24 02:31 36.6 C 88 18 140/77 Pulse Ox O2 Del Method O2 Flow Rate FiO2 01/11/24 10:10 95 Nasal Cannula 2 01/11/24 09:03 01/11/24 07:46 91 Nasal Cannula 2 01/11/24 07:33 93 Nasal Cannula 2 01/11/24 02:47 95 30 01/11/24 02:31 98 BiPAP (2) Acute asthma exacerbation Asthma persistence: unspecified Asthma severity: unspecified severity Qualified Code(s): J45.901 - Unspecified asthma with (acute) exacerbation
[2024-01-12 08:44] LABS: Basophils # (auto) 0.02 K/uL (0.00-0.20); Basophils % (auto) 0.1 %; Eosinophils % (auto) 0.7 %; Hematocrit (blood only) 43.4 % (42.0-52.0); Hemoglobin 13.6 g/dl (14.0-18.0); Immature Granulocytes # (auto) 0.15 K/uL (0.01-0.20); Immature Granulocytes % (auto) 1.1 %; Lymphocytes # (auto) 1.53 K/uL (1.20-3.40); Lymphocytes % (auto) 11.1 %; Mean Corpuscular Hemoglobin 29.4 pg (25.0-34.0); Mean Corpuscular Hgb Conc 31.3 g/dL (32.0-36.0); Mean Corpuscular Volume 93.9 fL (80.0-100.0); Mean Platelet Volume 10.4 fL (9.4-12.4); Monocytes # (auto) 0.98 K/uL (0.11-0.59); Monocytes % (auto) 7.1 %; Neutrophils % (auto) 79.9 %; Platelet Count 221 K/uL (130-400); RDW Coefficient of Variation 14.7 % (11.5-14.5); RDW Standard Deviation 50.3 fL (36.4-46.3); Red Blood Count 4.62 M/uL (4.70-6.10); White Blood Count 13.78 K/ul (4.8-10.8)
[2024-01-12 08:48] LABS: BUN Creatinine Ratio 19.6 (10-20); Calcium 9.3 mg/dl (8.6-10.3); Creatinine Clr Calc Pharmacy 59.5 ml/min; Magnesium 2.3 mg/dl (1.7-2.4); Phosphorus 3.5 mg/dl (2.5-4.9); Potassium 4.5 mmol/L (3.5-5.1)
--- NOTE | 2024-01-12 18:59 | Hospitalist Progress Note ---
Date of Service January 12, 2024 Assessment & Plan (1) COVID-19: (2) Acute asthma exacerbation: (3) Acute on chronic respiratory failure with hypoxia and hypercapnia: Plan Mr. May is an 83-year-old male with past medical history of recurrent aspiration pneumonitis with history of esophageal achalasia, restrictive lung disease, bronchiectasis, RUDY on BiPAP, asthma, tachybradycardia syndrome status post pacemaker, chronic diastolic heart failure, CKD, atrial fibrillation, a chalasia, BPH, history of prostatic cancer, depression, generalized anxiety disorder, PTSD, gout, hyperlipidemia and hypothyroidism who presents to the hospital with progressive shortness of breath. Patient treated for COVID and possible aspiration pneumonia. Patient doing well overall concern noted given 12/2 sputum with pseudomonas. Plan for cefepime q 12 given renal function and EKG to assess fluoroquinolone as possibility. #COVID-19 infection #Acute on chronic hypoxic respiratory failure improving Asthma exacerbation Possible aspiration pneumonia, Sputum with pseudomonas Obstructive Sleep Apnea Past medical history of recurrent aspiration pneumonitis, restrictive lung disease, bronchiectasis, asthma; presents with shortness of breath and fatigue. Respiratory viral panel positive for COVID-19 infection Chest x-ray showed "shallow inspiration with stable bibasilar atelectasis and vascular congestion" BNP mildly elevated to 94 CT chest concerning for a left greater than right bibasilar airspace opacities, suggestive of an atypical infection or aspiration MRSA nares positive VBG noting chronic hypercapnia Nebs prn flutter valve for airway clearance therapy sputum cx:pseudomonas Pulmonology was consulted, appreciate recs. Recommended or stated the following: - transitioned IV Solu-Medrol to p.o. prednisone - continue Breo and as needed bronchodilators -Transition IV Zosyn and doxycycline to p.o. Augmentin for 5 days completed that course -nightly CPAP at 10 cm of water. [facility]up with [facility] sleep [facility] in the outpatient setting. improving, no longer on BiPAP per pulmonology, currently back to baseline Given pseudonomas and persistent WBC, will add cefepime EKG for QTC #Acute Sinusitis Noted on head CT completed augmentin #Acute metabolic/toxic encephalopathy at baseline Patient with episode of altered mental status overnight on 01/05/2024 Possibly in setting of noted infections above UA currently negative Per pulmonology less likely related to chronic hypercapnia Delirium precautions. Frequent reorientation, avoid sedating medications as able patient and family concerned about home Remeron that was held in setting of acute infection. Discussion of risks of increasing confusion or delirium, etc while hospitalized, patient and son agreeable to risks and would like it resumed. Remeron resumed on 01/07/2024. Improved and back to baseline #Acute Kidney Injury on chronic Kidney Disease *resolved Creatinine of 1.39 on admission, went up to 1.41 Has since downtrended Avoid nephrotoxic agents as able Continue to monitor with daily labs Currently wnl #Hypermagnesemia Mag noted to be slightly elevated Discontinued home mag supplement Continue to monitor Resolved #Chronic anemia hgb 13 , down to 11 Consider further workup if downtrending with iron panel, folate and b12 Continue to monitor with daily labs Currently in 12-13 range #Wound on left leg with theraskin in place Pt presented with a wound vac on LLE continued wound VAC until 01/09 when evaluated by wound care Outpt wound clinic contacted by wound care nurse, orders placed Wound care replaced wound vac to be changed every MWF Other chronic conditions: History of achalasia status post balloon dilationreports that he tolerates regular food. Will consider swallow evaluation if clinical suspicion of aspiration is high with a CT chest. Tachybradycardia syndrome status post pacemaker, atrial fibrillationcontinue on diltiazem, metoprolol, Eliquis Chronic diastolic heart failureappears compensated, continue on metoprolol, spironolactone, torsemide CADcontinue on aspirin and Lipitor Hypothyroidismcontinue on levothyroxine OSAcontinue CPAP qhs per pulm recs Diet: DMII, HH, [id number], easy to chew DVT prophylaxis: Eliquis Dispo: PT/OT recommending acute rehab Admission and Anticipated Discharge Date Admission Date: January 05, 2024 Subjective Persistent WBC noted and slight uptrend Patient with Pseudomonas in sputum, though asymptomatic reportedly Patient reports feeling well overall Physical Exam Constitutional: WD/WN, vitals as above Respiratory: diminished bibasilar breath sounds, scatter rhonchi Gastrointestinal (Abdomen): normal bowel sounds, soft, nontender, no hepatosplenomegaly Musculoskeletal: LLE with kerlex dressing Results & Data Results & Data Vital Signs (Past 12 Hours) Vital Signs Temp Pulse Pulse Resp BP Pulse Ox O2 Del Method 01/12/24 16:29 67 01/12/24 12:23 36.8 C 78 16 116/75 94 Nasal Cannula 01/12/24 09:04 36.8 C 79 17 162/76 H 94 Nasal Cannula 01/12/24 08:45 Nasal Cannula 01/12/24 07:00 81 O2 Flow Rate 01/12/24 16:29 01/12/24 12:23 01/12/24 09:04 2 01/12/24 08:45 2 01/12/24 07:00 Laboratory Results Short CBC 01/12/24 Range/Units 08:15 WBC 13.78 H (4.8-10.8) K/ul Hgb 13.6 L (14.0-18.0) g/dl Hct 43.4 (42.0-52.0) % Plt Count 221 (130-400) K/uL BMP 01/12/24 08:15 Sodium 140 Potassium 4.5 Chloride 98 Carbon Dioxide 39 H BUN 22 Creatinine 1.12 Glucose 97 Calcium 9.3 Medications Administered Home Medications Medication Instructions Recorded Confirmed Last Taken albuterol sulfate 90 mcg/actuation 2 puff inhalation .EVERY 4-6 HOURS 08/03/22 01/05/24 01/05/24 aerosol inhaler PRN Shortness Of Breath Or Wheezing aspirin 81 mg capsule 81 mg PO QAM 08/03/22 01/05/24 01/05/24 08:00 atorvastatin 20 mg tablet (Lipitor) 20 mg PO HS 08/03/22 01/05/24 01/04/24 calcium 600 mg (as 1 tab PO QDD 08/03/22 01/05/24 01/05/24 carbonate)-vitamin D3 10 mcg (400 unit) tablet (Calcium 600 + D(3)) cyclosporine 0.05 % eye drops in a 1 drp ophthalmic (eye) Q12H Dry 08/03/22 01/05/24 01/05/24 dropperette (Restasis) Eye(S) am diltiazem HCl 180 mg 180 mg PO QAM 08/03/22 01/05/24 01/05/24 08:00 capsule,extended release 24 hr guaifenesin 600 mg tablet, 600 mg PO BID PRN cough or 08/03/22 01/05/24 08/19/22 04:00 extended release 12 hr (Mucinex) congestion levothyroxine 75 mcg tablet 75 mcg PO QAM 08/03/22 01/05/24 01/05/24 07:00 olanzapine 5 mg tablet (Zyprexa) 5 mg PO HS 08/03/22 01/05/24 01/04/24 tamsulosin 0.4 mg capsule 0.4 mg PO QAM 08/03/22 01/05/24 01/05/24 08:00 magnesium oxide 400 mg PO HS 01/03/23 01/05/24 01/04/24 acetaminophen 325 mg tablet 650 mg PO Q4 PRN Fever Or Pain 01/05/24 01/05/24 Unknown albuterol sulfate 2.5 mg/3 mL 2.5 mg continuous nebulization Q4 01/05/24 01/05/24 01/05/24 (0.083 %) solution for nebulization PRN Shortness Of Breath Or Wheezing apixaban 2.5 mg tablet (Eliquis) 2.5 mg PO AMHS 01/05/24 01/05/24 01/05/24 08:00 cefadroxil 500 mg capsule 500 mg PO Q12 01/05/24 01/05/24 01/05/24 08:00 escitalopram oxalate 20 mg tablet 20 mg PO QAM 01/05/24 01/05/24 01/05/24 08:00 fluticasone 250 mcg-salmeterol 50 1 ea inhalation BID 01/05/24 01/05/24 01/05/24 mcg/dose blistr powdr for am inhalation [id number] C-Mn 500 1 cap PO QDD 01/05/24 01/05/24 01/04/24 mg-400 mg capsule leuprolide (3 month) 22.5 mg (3 22.5 mg subcut .EVERY 3 MONTHS 01/05/24 01/05/24 Unknown month) subcutaneous syringe lutein 20 mg tablet 20 mg PO QDD 01/05/24 01/05/24 01/04/24 melatonin 5 mg tablet 5 mg PO HS 01/05/24 01/05/24 01/04/24 metoprolol succinate 50 mg 50 mg PO AMHS 01/05/24 01/05/24 01/05/24 08:00 tablet,extended release 24 hr mirtazapine 30 mg tablet 30 mg PO HS 01/05/24 01/05/24 01/04/24 multivitamin with iron 1 tab PO QDD 01/05/24 01/05/24 01/04/24 spironolactone 25 mg tablet 12.5 mg PO Q OTHER DAY 01/05/24 01/05/24 01/04/24 torsemide 20 mg tablet 60 mg PO QAM 01/05/24 01/05/24 01/05/24 08:00 Active Medications Generic Name Dose Route Start Last Admin Trade Name Freq PRN Reason Stop Dose Admin Albuterol 3 ml 01/06/24 09:31 01/12/24 06:36 Albut/Ipratrop 3mg/0.5mg Neb 3 Ml Vial NEB 02/04/24 21:18 3 ml Q6R PRN Administration Wheezing Protocol Apixaban 2.5 mg 01/05/24 21:19 01/12/24 08:44 Apixaban 2.5 Mg Tab PO 02/04/24 21:18 2.5 mg AMHS IRMA Administration Aspirin 81 mg 01/06/24 09:00 01/12/24 08:44 Aspirin 81 Mg Ectab PO 02/05/24 08:59 81 mg QAM IRMA Administration Atorvastatin Calcium 20 mg 01/05/24 21:45 01/11/24 20:02 Atorvastatin 20 Mg Tab PO 02/04/24 21:44 20 mg HS IRMA Administration Diltiazem HCl 180 mg 01/06/24 09:00 01/12/24 08:44 Diltiazem Hcl 180 Mg Capcr PO 02/05/24 08:59 180 mg QAM IRMA Administration Escitalopram Oxalate 20 mg 01/06/24 09:00 01/12/24 08:43 Escitalopram Oxalate 20 Mg Tab PO 02/05/24 08:59 20 mg QAM IRMA Administration Fluticasone/Vilanterol 1 puffs 01/05/24 22:00 01/12/24 08:43 Fluticasone/Vilanterol 200/25mcg 14 Puffs/Inhaler INH 02/04/24 21:59 1 puffs BID IRMA Administration Guaifenesin 600 mg 01/05/24 22:00 01/12/24 08:44 Guaifenesin 600 Mg Tabcr PO 02/04/24 21:59 600 mg BID IRMA Administration Insulin Aspart 0 units 01/06/24 11:30 01/12/24 17:06 Insulin Aspart Per Unit Charge SC 02/05/24 11:29 Not Given ACHS IRMA Lactobacillus Acidophilus 1,250 mg 01/05/24 21:19 01/12/24 08:43 Advanced Probiotic 625 Mg Capsule PO 02/04/24 21:18 1,250 mg DAILY IRMA Administration Levothyroxine Sodium 75 mcg 01/06/24 06:30 01/12/24 06:09 Levothyroxine Sodium 75 Mcg Tablet PO 02/05/24 06:29 75 mcg DAILYBB IRMA Administration Magnesium Hydroxide 30 ml 01/05/24 21:19 01/08/24 08:46 Magnesium Hydroxide Susp 30 Ml Udc PO 02/04/24 21:18 30 ml Q12H PRN Administration Constipation Metoprolol Succinate 50 mg 01/05/24 21:45 01/12/24 08:44 Metoprolol Succ 50mg Ext Rel Tab PO 02/04/24 21:44 50 mg AMHS IRMA Administration Mirtazapine 30 mg 01/05/24 22:00 01/11/24 20:02 Mirtazapine Tab 15 Mg Tab PO 02/04/24 21:59 30 mg HS IRMA Administration Multivitamins/Minerals 1 tab 01/06/24 16:30 01/12/24 17:11 Cerovite Adv Formula Tab PO 02/05/24 16:29 1 tab QDD IRMA Administration Olanzapine 5 mg 01/05/24 21:45 01/06/24 00:11 Olanzapine 5 Mg Tablet PO 02/04/24 21:44 Not Given HS IRMA Tamsulosin HCl 0.4 mg 01/06/24 09:00 01/12/24 08:43 Tamsulosin Hcl 0.4 Mg Cap PO 02/05/24 08:59 0.4 mg QAM IRMA Administration (2) Acute asthma exacerbation Asthma severity: unspecified severity Asthma persistence: unspecified Qualified Code(s): J45.901 - Unspecified asthma with (acute) exacerbation
[2024-01-12] MEDS: CEFEPIME 2000MG 2,000 MG/20 ML SYR IV SCH (20:34)
[2024-01-13 07:40] LABS: Hemoglobin 13.3 g/dl (14.0-18.0); Mean Corpuscular Hemoglobin 29.7 pg (25.0-34.0); Mean Corpuscular Hgb Conc 32.4 g/dL (32.0-36.0); Mean Corpuscular Volume 91.5 fL (80.0-100.0); Mean Platelet Volume 10.4 fL (9.4-12.4); Platelet Count 204 K/uL (130-400); RDW Coefficient of Variation 14.8 % (11.5-14.5); RDW Standard Deviation 49.7 fL (36.4-46.3); Red Blood Count 4.48 M/uL (4.70-6.10); White Blood Count 15.79 K/ul (4.8-10.8)
[2024-01-13 08:13] LABS: Anion Gap 3 (3-11); BUN Creatinine Ratio 20.6 (10-20); Blood Urea Nitrogen 22 mg/dl (6-23); Carbon Dioxide 36 mmol/L (21-32); Chloride 100 mmol/L (98-107); Creatinine Clr Calc Pharmacy 62.3 ml/min; Glucose 96 mg/dl (70-99(Fasting)); Sodium 139 mmol/L (136-145)
[2024-01-13] MEDS: CIPROFLOXACIN 500 MG TAB PO SCH (12:04)
--- NOTE | 2024-01-13 15:05 | Electrocardiogram Report ---
Test Reason : Blood Pressure : */* mmHG Vent. Rate : 83 BPM Atrial Rate : 100 BPM P-R Int : * ms QRS Dur : 90 ms QT Int : 380 ms P-R-T Axes : * 1 -15 degrees QTcB Int : 446 ms Atrial fibrillation with occasional ventricular-paced complexes Low voltage QRS Nonspecific ST and T wave abnormality Abnormal ECG When compared with ECG of 05-Jan-2024 15:38, No significant change was found Confirmed by Mario Alberto Zacarias ([id number]) on 01/13/2024 3:04:55 PM Referred By: REFERRED SELF Confirmed By: Mario Alberto Zacarias
--- NOTE | 2024-01-13 17:50 | Hospitalist Progress Note ---
Date of Service January 13, 2024 Assessment & Plan (1) COVID-19: (2) Acute asthma exacerbation: (3) Acute on chronic respiratory failure with hypoxia and hypercapnia: Plan Mr. May is an 83-year-old male with past medical history of recurrent aspiration pneumonitis with history of esophageal achalasia, restrictive lung disease, bronchiectasis, RUDY on BiPAP, asthma, tachybradycardia syndrome status post pacemaker, chronic diastolic heart failure, CKD, atrial fibrillation, a chalasia, BPH, history of prostatic cancer, depression, generalized anxiety disorder, PTSD, gout, hyperlipidemia and hypothyroidism who presents to the hospital with progressive shortness of breath. Patient treated for COVID and possible aspiration pneumonia. Patient doing well overall concern noted given 12/2 sputum with pseudomonas. Plan for cefepime q 12 given renal function and EKG to assess fluoroquinolone as possibility. #COVID-19 infection #Acute on chronic hypoxic respiratory failure improving Asthma exacerbation Possible aspiration pneumonia, Sputum with pseudomonas Obstructive Sleep Apnea Past medical history of recurrent aspiration pneumonitis, restrictive lung disease, bronchiectasis, asthma; presents with shortness of breath and fatigue. Respiratory viral panel positive for COVID-19 infection Chest x-ray showed "shallow inspiration with stable bibasilar atelectasis and vascular congestion" BNP mildly elevated to 94 CT chest concerning for a left greater than right bibasilar airspace opacities, suggestive of an atypical infection or aspiration MRSA nares positive VBG noting chronic hypercapnia Nebs prn flutter valve for airway clearance therapy sputum cx:pseudomonas Pulmonology was consulted, appreciate recs. Recommended or stated the following: - transitioned IV Solu-Medrol to p.o. prednisone - continue Breo and as needed bronchodilators -Transition IV Zosyn and doxycycline to p.o. Augmentin for 5 days completed that course -nightly CPAP at 10 cm of water. Follow-up with the [facility] sleep clinic in the outpatient setting. improving, no longer on BiPAP per pulmonology, currently back to baseline Given pseudonomas and persistent WBC, started cefepime then transitioned to ciprofloxacin EKG for QTC #Leukocytosis treating pseudomonas with cipro no increased O2 requirment Wound vac potentially source for transient leukocytosis as well afebrile continue to trend CBC #Acute Sinusitis Noted on head CT completed augmentin #Acute metabolic/toxic encephalopathy at baseline Patient with episode of altered mental status overnight on 01/05/2024 Possibly in setting of noted infections above UA currently negative Per pulmonology less likely related to chronic hypercapnia Delirium precautions. Frequent reorientation, avoid sedating medications as able patient and family concerned about home Remeron that was held in setting of acute infection. Discussion of risks of increasing confusion or delirium, etc while hospitalized, patient and son agreeable to risks and would like it resumed. Remeron resumed on 01/07/2024. Improved and back to baseline #Acute Kidney Injury on chronic Kidney Disease *resolved Creatinine of 1.39 on admission, went up to 1.41 Has since downtrended Avoid nephrotoxic agents as able Continue to monitor with daily labs Currently wnl #Hypermagnesemia Mag noted to be slightly elevated Discontinued home mag supplement Continue to monitor Resolved #Chronic anemia hgb 13 , down to 11 Consider further workup if downtrending with iron panel, folate and b12 Continue to monitor with daily labs Currently in 12-13 range #Wound on left leg with theraskin in place Pt presented with a wound vac on LLE continued wound VAC until 01/09 when evaluated by wound care Outpt wound clinic contacted by wound care nurse, orders placed Wound care replaced wound vac to be changed every MWF Other chronic conditions: History of achalasia status post balloon dilationreports that he tolerates regular food. Will consider swallow evaluation if clinical suspicion of aspiration is high with a CT chest. Tachybradycardia syndrome status post pacemaker, atrial fibrillationcontinue on diltiazem, metoprolol, Eliquis Chronic diastolic heart failureappears compensated, continue on metoprolol, spironolactone, torsemide CADcontinue on aspirin and Lipitor Hypothyroidismcontinue on levothyroxine OSAcontinue CPAP qhs per pulm recs Diet: DMII, HH, [id number], easy to chew DVT prophylaxis: Eliquis Dispo: PT/OT recommending acute rehab Admission and Anticipated Discharge Date Admission Date: January 05, 2024 Subjective NAEO Denies any concerns, agreeable to rehab Physical Exam Constitutional: WD/WN, vitals as above Respiratory: diminshed bibasilar breath sounds Results & Data Results & Data Vital Signs (Past 12 Hours) Vital Signs Temp Pulse Pulse Resp BP Pulse Ox O2 Del Method 01/13/24 17:10 81 12/05/24 17:02 Nasal Cannula 01/13/24 16:37 36.5 C 83 20 124/83 96 Nasal Cannula 01/13/24 11:48 36.9 C 102 H 20 120/74 93 Nasal Cannula 01/13/24 10:50 Nasal Cannula 01/13/24 10:00 80 01/13/24 07:57 36.8 C 82 20 139/82 96 Nasal Cannula O2 Flow Rate 01/13/24 17:10 01/13/24 17:02 2 01/13/24 16:37 2.0 01/13/24 11:48 2.0 01/13/24 10:50 01/13/24 10:00 01/13/24 07:57 2.0 Laboratory Results Short CBC 01/13/24 Range/Units 07:20 WBC 15.79 H (4.8-10.8) K/ul Hgb 13.3 L (14.0-18.0) g/dl Hct 41.0 L (42.0-52.0) % Plt Count 204 (130-400) K/uL BMP 01/13/24 01/13/24 01/13/24 07:20 08:22 08:33 Sodium 139 Potassium TNP Cancelled TNP Chloride 100 Carbon Dioxide 36 H BUN 22 Creatinine 1.07 Glucose 96 Calcium 9.0 01/13/24 09:36 Sodium Potassium 4.1 Chloride Carbon Dioxide BUN Creatinine Glucose Calcium Medications Administered Home Medications Medication Instructions Recorded Confirmed Last Taken albuterol sulfate 90 mcg/actuation 2 puff inhalation .EVERY 4-6 HOURS 08/03/22 01/05/24 01/05/24 aerosol inhaler PRN Shortness Of Breath Or Wheezing aspirin 81 mg capsule 81 mg PO QAM 08/03/22 01/05/24 01/05/24 08:00 atorvastatin 20 mg tablet (Lipitor) 20 mg PO HS 08/03/22 01/05/24 01/04/24 calcium 600 mg (as 1 tab PO QDD 08/03/22 01/05/24 01/05/24 carbonate)-vitamin D3 10 mcg (400 unit) tablet (Calcium 600 + D(3)) cyclosporine 0.05 % eye drops in a 1 drp ophthalmic (eye) Q12H Dry 08/03/22 01/05/24 01/05/24 dropperette (Restasis) Eye(S) am diltiazem HCl 180 mg 180 mg PO QAM 08/03/22 01/05/24 01/05/24 08:00 capsule,extended release 24 hr guaifenesin 600 mg tablet, 600 mg PO BID PRN cough or 08/03/22 01/05/24 08/19/22 04:00 extended release 12 hr (Mucinex) congestion levothyroxine 75 mcg tablet 75 mcg PO QAM 08/03/22 01/05/24 01/05/24 07:00 olanzapine 5 mg tablet (Zyprexa) 5 mg PO HS 08/03/22 01/05/24 01/04/24 tamsulosin 0.4 mg capsule 0.4 mg PO QAM 08/03/22 01/05/24 01/05/24 08:00 magnesium oxide 400 mg PO HS 01/03/23 01/05/24 01/04/24 acetaminophen 325 mg tablet 650 mg PO Q4 PRN Fever Or Pain 01/05/24 01/05/24 Unknown albuterol sulfate 2.5 mg/3 mL 2.5 mg continuous nebulization Q4 01/05/24 01/05/24 01/05/24 (0.083 %) solution for nebulization PRN Shortness Of Breath Or Wheezing apixaban 2.5 mg tablet (Eliquis) 2.5 mg PO AMHS 01/05/24 01/05/24 01/05/24 08:00 cefadroxil 500 mg capsule 500 mg PO Q12 01/05/24 01/05/24 01/05/24 08:00 escitalopram oxalate 20 mg tablet 20 mg PO QAM 01/05/24 01/05/24 01/05/24 08:00 fluticasone 250 mcg-salmeterol 50 1 ea inhalation BID 01/05/24 01/05/24 01/05/24 mcg/dose blistr powdr for am inhalation [id number] C-Mn 500 1 cap PO QDD 01/05/24 01/05/24 01/04/24 mg-400 mg capsule leuprolide (3 month) 22.5 mg (3 22.5 mg subcut .EVERY 3 MONTHS 01/05/24 01/05/24 Unknown month) subcutaneous syringe lutein 20 mg tablet 20 mg PO QDD 01/05/24 01/05/24 01/04/24 melatonin 5 mg tablet 5 mg PO HS 01/05/24 01/05/24 01/04/24 metoprolol succinate 50 mg 50 mg PO AMHS 01/05/24 01/05/24 01/05/24 08:00 tablet,extended release 24 hr mirtazapine 30 mg tablet 30 mg PO HS 01/05/24 01/05/24 01/04/24 multivitamin with iron 1 tab PO QDD 01/05/24 01/05/24 01/04/24 spironolactone 25 mg tablet 12.5 mg PO Q OTHER DAY 01/05/24 01/05/24 01/04/24 torsemide 20 mg tablet 60 mg PO QAM 01/05/24 01/05/24 01/05/24 08:00 Active Medications Generic Name Dose Route Start Last Admin Trade Name Freq PRN Reason Stop Dose Admin Albuterol 3 ml 01/06/24 09:31 01/13/24 05:44 Albut/Ipratrop 3mg/0.5mg Neb 3 Ml Vial NEB 02/04/24 21:18 3 ml Q6R PRN Administration Wheezing Protocol Apixaban 2.5 mg 01/05/24 21:19 01/13/24 09:29 Apixaban 2.5 Mg Tab PO 02/04/24 21:18 2.5 mg AMHS IRMA Administration Aspirin 81 mg 01/06/24 09:00 01/13/24 09:29 Aspirin 81 Mg Ectab PO 02/05/24 08:59 81 mg QAM IRMA Administration Atorvastatin Calcium 20 mg 01/05/24 21:45 01/12/24 20:33 Atorvastatin 20 Mg Tab PO 02/04/24 21:44 20 mg HS IRMA Administration Ciprofloxacin 500 mg 01/13/24 10:30 01/13/24 12:04 Ciprofloxacin 500 Mg Tab PO 01/20/24 10:29 500 mg BID IRMA Administration Protocol Diltiazem HCl 180 mg 01/06/24 09:00 01/13/24 09:29 Diltiazem Hcl 180 Mg Capcr PO 02/05/24 08:59 180 mg QAM IRMA Administration Escitalopram Oxalate 20 mg 01/06/24 09:00 01/13/24 09:29 Escitalopram Oxalate 20 Mg Tab PO 02/05/24 08:59 20 mg QAM IRMA Administration Fluticasone/Vilanterol 1 puffs 01/05/24 22:00 01/13/24 09:29 Fluticasone/Vilanterol 200/25mcg 14 Puffs/Inhaler INH 02/04/24 21:59 1 puffs BID IRMA Administration Guaifenesin 600 mg 01/05/24 22:00 01/13/24 09:29 Guaifenesin 600 Mg Tabcr PO 02/04/24 21:59 600 mg BID IRMA Administration Insulin Aspart 0 units 01/06/24 11:30 01/13/24 17:27 Insulin Aspart Per Unit Charge SC 02/05/24 11:29 Not Given ACHS IRMA Lactobacillus Acidophilus 1,250 mg 01/05/24 21:19 01/13/24 09:29 Advanced Probiotic 625 Mg Capsule PO 02/04/24 21:18 1,250 mg DAILY IRMA Administration Levothyroxine Sodium 75 mcg 01/06/24 06:30 01/13/24 05:32 Levothyroxine Sodium 75 Mcg Tablet PO 02/05/24 06:29 75 mcg DAILYBB IRMA Administration Magnesium Hydroxide 30 ml 01/05/24 21:19 01/08/24 08:46 Magnesium Hydroxide Susp 30 Ml Udc PO 02/04/24 21:18 30 ml Q12H PRN Administration Constipation Metoprolol Succinate 50 mg 01/05/24 21:45 01/13/24 09:29 Metoprolol Succ 50mg Ext Rel Tab PO 02/04/24 21:44 50 mg AMHS IRMA Administration Mirtazapine 30 mg 01/05/24 22:00 01/12/24 20:33 Mirtazapine Tab 15 Mg Tab PO 02/04/24 21:59 30 mg HS IRMA Administration Multivitamins/Minerals 1 tab 01/06/24 16:30 01/13/24 17:27 Cerovite Adv Formula Tab PO 02/05/24 16:29 1 tab QDD IRMA Administration Olanzapine 5 mg 01/05/24 21:45 01/06/24 00:11 Olanzapine 5 Mg Tablet PO 02/04/24 21:44 Not Given HS IRMA Tamsulosin HCl 0.4 mg 01/06/24 09:00 01/13/24 09:29 Tamsulosin Hcl 0.4 Mg Cap PO 02/05/24 08:59 0.4 mg QAM IRMA Administration (2) Acute asthma exacerbation Asthma severity: unspecified severity Asthma persistence: unspecified Qualified Code(s): J45.901 - Unspecified asthma with (acute) exacerbation
[2024-01-14 06:13] LABS: Hematocrit (blood only) 39.9 % (42.0-52.0); Hemoglobin 12.6 g/dl (14.0-18.0); Mean Corpuscular Hemoglobin 29.5 pg (25.0-34.0); Mean Corpuscular Hgb Conc 31.6 g/dL (32.0-36.0); Mean Corpuscular Volume 93.4 fL (80.0-100.0); Mean Platelet Volume 10.6 fL (9.4-12.4); Platelet Count 177 K/uL (130-400); RDW Coefficient of Variation 14.9 % (11.5-14.5); RDW Standard Deviation 50.8 fL (36.4-46.3); Red Blood Count 4.27 M/uL (4.70-6.10); White Blood Count 15.22 K/ul (4.8-10.8)
--- NOTE | 2024-01-14 16:16 | Hospitalist Progress Note ---
Date of Service January 14, 2024 Assessment & Plan (1) COVID-19: (2) Acute asthma exacerbation: (3) Acute on chronic respiratory failure with hypoxia and hypercapnia: Plan Mr. May is an 83-year-old male with past medical history of recurrent aspiration pneumonitis with history of esophageal achalasia, restrictive lung disease, bronchiectasis, RUDY on BiPAP, asthma, tachybradycardia syndrome status post pacemaker, chronic diastolic heart failure, CKD, atrial fibrillation, a chalasia, BPH, history of prostatic cancer, depression, generalized anxiety disorder, PTSD, gout, hyperlipidemia and hypothyroidism who presents to the hospital with progressive shortness of breath. Patient treated for COVID and possible aspiration pneumonia. Patient doing well overall concern noted given 12/2 sputum with pseudomonas. Cefepime transitioned to course of ciprofloxacin for pseudomonas in sputum Patient with wound vac. Placement pending proper wound vac supplies to arrive to facility #COVID-19 infection #Acute on chronic hypoxic respiratory failure improving Asthma exacerbation Possible aspiration pneumonia, Sputum with pseudomonas Obstructive Sleep Apnea Past medical history of recurrent aspiration pneumonitis, restrictive lung disease, bronchiectasis, asthma; presents with shortness of breath and fatigue. Respiratory viral panel positive for COVID-19 infection Chest x-ray showed "shallow inspiration with stable bibasilar atelectasis and vascular congestion" BNP mildly elevated to 94 CT chest concerning for a left greater than right bibasilar airspace opacities, suggestive of an atypical infection or aspiration MRSA nares positive VBG noting chronic hypercapnia Nebs prn flutter valve for airway clearance therapy sputum cx:pseudomonas Pulmonology was consulted, appreciate recs. Recommended or stated the following: - transitioned IV Solu-Medrol to p.o. prednisone - continue Breo and as needed bronchodilators -Transition IV Zosyn and doxycycline to p.o. Augmentin for 5 days completed that course -nightly CPAP at 10 cm of water. Follow-up with the [facility] sleep clinic in the outpatient setting. improving, no longer on BiPAP per pulmonology, currently back to baseline transitioned to 7 day course of ciprofloxacin for pseuodmonas in sputum #Leukocytosis treating pseudomonas with cipro no increased O2 requirment Wound vac potentially source for transient leukocytosis as well afebrile continue to trend CBC #Acute Sinusitis Noted on head CT completed augmentin #Acute metabolic/toxic encephalopathy at baseline Patient with episode of altered mental status overnight on 01/05/2024 Possibly in setting of noted infections above UA currently negative Per pulmonology less likely related to chronic hypercapnia Delirium precautions. Frequent reorientation, avoid sedating medications as able patient and family concerned about home Remeron that was held in setting of acute infection. Discussion of risks of increasing confusion or delirium, etc while hospitalized, patient and son agreeable to risks and would like it resumed. Remeron resumed on 01/07/2024. Improved and back to baseline #Acute Kidney Injury on chronic Kidney Disease *resolved Creatinine of 1.39 on admission, went up to 1.41 Has since downtrended Avoid nephrotoxic agents as able Continue to monitor with daily labs Currently wnl #Hypermagnesemia Mag noted to be slightly elevated Discontinued home mag supplement Continue to monitor Resolved #Chronic anemia hgb 13 , down to 11 Consider further workup if downtrending with iron panel, folate and b12 Continue to monitor with daily labs Currently in 12-13 range #Wound on left leg with theraskin in place Pt presented with a wound vac on LLE continued wound VAC until 01/09 when evaluated by wound care Outpt wound clinic contacted by wound care nurse, orders placed Wound care replaced wound vac to be changed every MWF Other chronic conditions: History of achalasia status post balloon dilationreports that he tolerates regular food. Will consider swallow evaluation if clinical suspicion of aspiration is high with a CT chest. Tachybradycardia syndrome status post pacemaker, atrial fibrillationcontinue on diltiazem, metoprolol, Eliquis Chronic diastolic heart failureappears compensated, continue on metoprolol, spironolactone, torsemide CADcontinue on aspirin and Lipitor Hypothyroidismcontinue on levothyroxine OSAcontinue CPAP qhs per pulm recs Diet: DMII, HH, [id number], easy to chew DVT prophylaxis: Eliquis Dispo: PT/OT recommending rehab, dispo alejandro wednesday Admission and Anticipated Discharge Date Admission Date: January 05, 2024 Subjective NAEO Evaluated at bedside, denies any concerns at this time States breathing feels stable and denies any chest pain Physical Exam Constitutional: WD/WN, vitals as above Respiratory: diminished bilaterally but overall no wheezing/rhonchi on exam Cardiovascular: irregular Musculoskeletal: wound vac on LLE undergoing exchange at bedside with wound care nurse Results & Data Results & Data Vital Signs (Past 12 Hours) Vital Signs Temp Pulse Resp BP Pulse Ox O2 Del Method O2 Flow Rate 01/14/24 15:24 36.7 C 73 18 115/69 95 Nasal Cannula 2.0 01/14/24 11:12 36.9 C 85 18 109/66 94 Nasal Cannula 2.0 01/14/24 08:00 Nasal Cannula 3 01/14/24 07:26 37.0 C 89 20 128/76 95 Nasal Cannula 2.0 01/14/24 07:05 92 H 16 94 Nasal Cannula 3 Laboratory Results Short CBC 01/14/24 Range/Units 05:41 WBC 15.22 H (4.8-10.8) K/ul Hgb 12.6 L (14.0-18.0) g/dl Hct 39.9 L (42.0-52.0) % Plt Count 177 (130-400) K/uL Medications Administered Home Medications Medication Instructions Recorded Confirmed Last Taken albuterol sulfate 90 mcg/actuation 2 puff inhalation .EVERY 4-6 HOURS 08/03/22 01/05/24 01/05/24 aerosol inhaler PRN Shortness Of Breath Or Wheezing aspirin 81 mg capsule 81 mg PO QAM 08/03/22 01/05/24 01/05/24 08:00 atorvastatin 20 mg tablet (Lipitor) 20 mg PO HS 08/03/22 01/05/24 01/04/24 calcium 600 mg (as 1 tab PO QDD 08/03/22 01/05/24 01/05/24 carbonate)-vitamin D3 10 mcg (400 unit) tablet (Calcium 600 + D(3)) cyclosporine 0.05 % eye drops in a 1 drp ophthalmic (eye) Q12H Dry 08/03/22 01/05/24 01/05/24 dropperette (Restasis) Eye(S) am diltiazem HCl 180 mg 180 mg PO QAM 08/03/22 01/05/24 01/05/24 08:00 capsule,extended release 24 hr guaifenesin 600 mg tablet, 600 mg PO BID PRN cough or 08/03/22 01/05/24 08/19/22 04:00 extended release 12 hr (Mucinex) congestion levothyroxine 75 mcg tablet 75 mcg PO QAM 08/03/22 01/05/24 01/05/24 07:00 olanzapine 5 mg tablet (Zyprexa) 5 mg PO HS 08/03/22 01/05/24 01/04/24 tamsulosin 0.4 mg capsule 0.4 mg PO QAM 08/03/22 01/05/24 01/05/24 08:00 magnesium oxide 400 mg PO HS 01/03/23 01/05/24 01/04/24 acetaminophen 325 mg tablet 650 mg PO Q4 PRN Fever Or Pain 01/05/24 01/05/24 Unknown albuterol sulfate 2.5 mg/3 mL 2.5 mg continuous nebulization Q4 01/05/24 01/05/24 01/05/24 (0.083 %) solution for nebulization PRN Shortness Of Breath Or Wheezing apixaban 2.5 mg tablet (Eliquis) 2.5 mg PO AMHS 01/05/24 01/05/24 01/05/24 08:00 cefadroxil 500 mg capsule 500 mg PO Q12 01/05/24 01/05/24 01/05/24 08:00 escitalopram oxalate 20 mg tablet 20 mg PO QAM 01/05/24 01/05/24 01/05/24 08:00 fluticasone 250 mcg-salmeterol 50 1 ea inhalation BID 01/05/24 01/05/24 01/05/24 mcg/dose blistr powdr for am inhalation [id number] C-Mn 500 1 cap PO QDD 01/05/24 01/05/24 01/04/24 mg-400 mg capsule leuprolide (3 month) 22.5 mg (3 22.5 mg subcut .EVERY 3 MONTHS 01/05/24 01/05/24 Unknown month) subcutaneous syringe lutein 20 mg tablet 20 mg PO QDD 01/05/24 01/05/24 01/04/24 melatonin 5 mg tablet 5 mg PO HS 01/05/24 01/05/24 01/04/24 metoprolol succinate 50 mg 50 mg PO AMHS 01/05/24 01/05/24 01/05/24 08:00 tablet,extended release 24 hr mirtazapine 30 mg tablet 30 mg PO HS 01/05/24 01/05/24 01/04/24 multivitamin with iron 1 tab PO QDD 01/05/24 01/05/24 01/04/24 spironolactone 25 mg tablet 12.5 mg PO Q OTHER DAY 01/05/24 01/05/24 01/04/24 torsemide 20 mg tablet 60 mg PO QAM 01/05/24 01/05/24 01/05/24 08:00 Active Medications Generic Name Dose Route Start Last Admin Trade Name Freq PRN Reason Stop Dose Admin Albuterol 3 ml 01/06/24 09:31 01/14/24 07:04 Albut/Ipratrop 3mg/0.5mg Neb 3 Ml Vial NEB 02/04/24 21:18 3 ml Q6R PRN Administration Wheezing Protocol Apixaban 2.5 mg 01/05/24 21:19 01/14/24 08:22 Apixaban 2.5 Mg Tab PO 02/04/24 21:18 2.5 mg AMHS IRMA Administration Aspirin 81 mg 01/06/24 09:00 01/14/24 08:22 Aspirin 81 Mg Ectab PO 02/05/24 08:59 81 mg QAM IRMA Administration Atorvastatin Calcium 20 mg 01/05/24 21:45 01/13/24 20:31 Atorvastatin 20 Mg Tab PO 02/04/24 21:44 20 mg HS IRMA Administration Ciprofloxacin 500 mg 01/13/24 10:30 01/14/24 08:22 Ciprofloxacin 500 Mg Tab PO 01/20/24 10:29 500 mg BID IRMA Administration Protocol Diltiazem HCl 180 mg 01/06/24 09:00 01/14/24 08:22 Diltiazem Hcl 180 Mg Capcr PO 02/05/24 08:59 180 mg QAM IRMA Administration Escitalopram Oxalate 20 mg 01/06/24 09:00 01/14/24 08:22 Escitalopram Oxalate 20 Mg Tab PO 02/05/24 08:59 20 mg QAM IRMA Administration Fluticasone/Vilanterol 1 puffs 01/05/24 22:00 01/14/24 08:23 Fluticasone/Vilanterol 200/25mcg 14 Puffs/Inhaler INH 02/04/24 21:59 1 puffs BID IRMA Administration Guaifenesin 600 mg 01/05/24 22:00 01/14/24 08:23 Guaifenesin 600 Mg Tabcr PO 02/04/24 21:59 600 mg BID IRMA Administration Insulin Aspart 0 units 01/06/24 11:30 01/14/24 12:43 Insulin Aspart Per Unit Charge SC 02/05/24 11:29 Not Given ACHS IRMA Lactobacillus Acidophilus 1,250 mg 01/05/24 21:19 01/14/24 08:22 Advanced Probiotic 625 Mg Capsule PO 02/04/24 21:18 1,250 mg DAILY IRMA Administration Levothyroxine Sodium 75 mcg 01/06/24 06:30 01/14/24 06:25 Levothyroxine Sodium 75 Mcg Tablet PO 02/05/24 06:29 75 mcg DAILYBB IRMA Administration Magnesium Hydroxide 30 ml 01/05/24 21:19 01/08/24 08:46 Magnesium Hydroxide Susp 30 Ml Udc PO 02/04/24 21:18 30 ml Q12H PRN Administration Constipation Metoprolol Succinate 50 mg 01/05/24 21:45 01/14/24 08:22 Metoprolol Succ 50mg Ext Rel Tab PO 02/04/24 21:44 50 mg AMHS IRMA Administration Mirtazapine 30 mg 01/05/24 22:00 01/13/24 20:30 Mirtazapine Tab 15 Mg Tab PO 02/04/24 21:59 30 mg HS IRMA Administration Multivitamins/Minerals 1 tab 01/06/24 16:30 01/13/24 17:27 Cerovite Adv Formula Tab PO 02/05/24 16:29 1 tab QDD RIMA Administration Olanzapine 5 mg 01/05/24 21:45 01/06/24 00:11 Olanzapine 5 Mg Tablet PO 02/04/24 21:44 Not Given HS IRMA Tamsulosin HCl 0.4 mg 01/06/24 09:00 01/14/24 08:22 Tamsulosin Hcl 0.4 Mg Cap PO 02/05/24 08:59 0.4 mg QAM IRMA Administration (2) Acute asthma exacerbation Asthma severity: unspecified severity Asthma persistence: unspecified Qualified Code(s): J45.901 - Unspecified asthma with (acute) exacerbation
--- NOTE | 2024-01-15 07:12 | Hospitalist Progress Note ---
Date of Service January 15, 2024 Assessment & Plan (1) COVID-19: (2) Acute asthma exacerbation: (3) Acute on chronic respiratory failure with hypoxia and hypercapnia: Plan Mr. May is an 83-year-old male with past medical history of recurrent aspiration pneumonitis with history of esophageal achalasia, restrictive lung disease, bronchiectasis, RUDY on BiPAP, asthma, tachybradycardia syndrome status post pacemaker, chronic diastolic heart failure, CKD, atrial fibrillation, a chalasia, BPH, history of prostatic cancer, depression, generalized anxiety disorder, PTSD, gout, hyperlipidemia and hypothyroidism who presents to the hospital with progressive shortness of breath. Patient treated for COVID and possible aspiration pneumonia. Patient doing well overall concern noted given 12/2 sputum with pseudomonas. Cefepime transitioned to course of ciprofloxacin for pseudomonas in sputum Patient with wound vac. Placement pending proper wound vac supplies to arrive to facility Patient medically stable for discharge. #COVID-19 infection #Acute on chronic hypoxic respiratory failure improving Asthma exacerbation Possible aspiration pneumonia, Sputum with pseudomonas Obstructive Sleep Apnea Past medical history of recurrent aspiration pneumonitis, restrictive lung disease, bronchiectasis, asthma; presents with shortness of breath and fatigue. Respiratory viral panel positive for COVID-19 infection Chest x-ray showed "shallow inspiration with stable bibasilar atelectasis and vascular congestion" BNP mildly elevated to 94 CT chest concerning for a left greater than right bibasilar airspace opacities, suggestive of an atypical infection or aspiration MRSA nares positive VBG noting chronic hypercapnia Nebs prn flutter valve for airway clearance therapy sputum cx:pseudomonas Pulmonology was consulted, appreciate recs. Recommended or stated the following: - transitioned IV Solu-Medrol to p.o. prednisone - continue Breo and as needed bronchodilators -Transition IV Zosyn and doxycycline to p.o. Augmentin for 5 days completed that course -nightly CPAP at 10 cm of water. Follow-up with the [facility] sleep clinic in the outpatient setting. improving, no longer on BiPAP per pulmonology, currently back to baseline transitioned to 7 day course of ciprofloxacin for pseuodmonas in sputum #Leukocytosis treating pseudomonas with cipro no increased O2 requirment Wound vac potentially source for transient leukocytosis as well afebrile continue to trend CBC #Acute Sinusitis Noted on head CT completed augmentin #Acute metabolic/toxic encephalopathy at baseline Patient with episode of altered mental status overnight on 01/05/2024 Possibly in setting of noted infections above UA currently negative Per pulmonology less likely related to chronic hypercapnia Delirium precautions. Frequent reorientation, avoid sedating medications as able patient and family concerned about home Remeron that was held in setting of acute infection. Discussion of risks of increasing confusion or delirium, etc while hospitalized, patient and son agreeable to risks and would like it resumed. Remeron resumed on 01/07/2024. Improved and back to baseline #Acute Kidney Injury on chronic Kidney Disease *resolved Creatinine of 1.39 on admission, went up to 1.41 Has since downtrended Avoid nephrotoxic agents as able Continue to monitor with daily labs Currently wnl #Hypermagnesemia Mag noted to be slightly elevated Discontinued home mag supplement Continue to monitor Resolved #Chronic anemia hgb 13 , down to 11 Consider further workup if downtrending with iron panel, folate and b12 Continue to monitor with daily labs Currently in 12-13 range #Wound on left leg with theraskin in place Pt presented with a wound vac on LLE continued wound VAC until 01/09 when evaluated by wound care Outpt wound clinic contacted by wound care nurse, orders placed Wound care replaced wound vac to be changed every MWF Other chronic conditions: History of achalasia status post balloon dilationreports that he tolerates regular food. Will consider swallow evaluation if clinical suspicion of aspiration is high with a CT chest. Tachybradycardia syndrome status post pacemaker, atrial fibrillationcontinue on diltiazem, metoprolol, Eliquis Chronic diastolic heart failureappears compensated, continue on metoprolol, spironolactone, torsemide CADcontinue on aspirin and Lipitor Hypothyroidismcontinue on levothyroxine OSAcontinue CPAP qhs per pulm recs Diet: DMII, HH, [id number], easy to chew DVT prophylaxis: Eliquis Dispo: PT/OT recommending rehab, dispo likely Wednesday Admission and Anticipated Discharge Date Admission Date: January 05, 2024 Subjective NAEO Sitting in bedside chair, denies any cough or concerns Physical Exam Constitutional: WD/WN, vitals as above Respiratory: on home O2, no distress, no wheezing/crackles Cardiovascular: RRR, no murmur, no edema Gastrointestinal (Abdomen): normal bowel sounds, soft, nontender, no hepatosplenomegaly Results & Data Results & Data Vital Signs (Past 12 Hours) Vital Signs Temp Pulse Pulse Resp BP Pulse Ox O2 Del Method 01/15/24 04:14 83 01/15/24 02:52 Nasal Cannula 01/15/24 02:44 36.5 C 83 16 119/75 93 Nasal Cannula 01/14/24 22:28 85 25 H 97 01/14/24 22:00 36.8 C 75 18 120/72 92 Nasal Cannula 01/14/24 20:15 77 15 96 Nasal Cannula 01/14/24 19:53 36.8 C 82 16 122/68 93 Nasal Cannula O2 Flow Rate 01/15/24 04:14 01/15/24 02:52 3.5 01/15/24 02:44 2 01/14/24 22:28 2 01/14/24 22:00 2 01/14/24 20:15 3 01/14/24 19:53 2 Laboratory Results Short CBC 01/15/24 Range/Units 06:51 WBC 14.67 H (4.8-10.8) K/ul Hgb 12.3 L (14.0-18.0) g/dl Hct 38.8 L (42.0-52.0) % Plt Count 158 (130-400) K/uL BMP 01/15/24 06:51 Sodium 139 Potassium 4.3 Chloride 101 Carbon Dioxide 33 H BUN 25 H Creatinine 1.06 Glucose 91 Calcium 8.9 Medications Administered Home Medications Medication Instructions Recorded Confirmed Last Taken albuterol sulfate 90 mcg/actuation 2 puff inhalation .EVERY 4-6 HOURS 08/03/22 01/05/24 01/05/24 aerosol inhaler PRN Shortness Of Breath Or Wheezing aspirin 81 mg capsule 81 mg PO QAM 08/03/22 01/05/24 01/05/24 08:00 atorvastatin 20 mg tablet (Lipitor) 20 mg PO HS 08/03/22 01/05/24 01/04/24 calcium 600 mg (as 1 tab PO QDD 08/03/22 01/05/24 01/05/24 carbonate)-vitamin D3 10 mcg (400 unit) tablet (Calcium 600 + D(3)) cyclosporine 0.05 % eye drops in a 1 drp ophthalmic (eye) Q12H Dry 08/03/22 01/05/24 01/05/24 dropperette (Restasis) Eye(S) am diltiazem HCl 180 mg 180 mg PO QAM 08/03/22 01/05/24 01/05/24 08:00 capsule,extended release 24 hr guaifenesin 600 mg tablet, 600 mg PO BID PRN cough or 08/03/22 01/05/24 08/19/22 04:00 extended release 12 hr (Mucinex) congestion levothyroxine 75 mcg tablet 75 mcg PO QAM 08/03/22 01/05/24 01/05/24 07:00 olanzapine 5 mg tablet (Zyprexa) 5 mg PO HS 08/03/22 01/05/24 01/04/24 tamsulosin 0.4 mg capsule 0.4 mg PO QAM 08/03/22 01/05/24 01/05/24 08:00 magnesium oxide 400 mg PO HS 01/03/23 01/05/24 01/04/24 acetaminophen 325 mg tablet 650 mg PO Q4 PRN Fever Or Pain 01/05/24 01/05/24 Unknown albuterol sulfate 2.5 mg/3 mL 2.5 mg continuous nebulization Q4 01/05/24 01/05/24 01/05/24 (0.083 %) solution for nebulization PRN Shortness Of Breath Or Wheezing apixaban 2.5 mg tablet (Eliquis) 2.5 mg PO AMHS 01/05/24 01/05/24 01/05/24 08:00 cefadroxil 500 mg capsule 500 mg PO Q12 01/05/24 01/05/24 01/05/24 08:00 escitalopram oxalate 20 mg tablet 20 mg PO QAM 01/05/24 01/05/24 01/05/24 08:00 fluticasone 250 mcg-salmeterol 50 1 ea inhalation BID 01/05/24 01/05/24 01/05/24 mcg/dose blistr powdr for am inhalation [id number] C-Mn 500 1 cap PO QDD 01/05/24 01/05/24 01/04/24 mg-400 mg capsule leuprolide (3 month) 22.5 mg (3 22.5 mg subcut .EVERY 3 MONTHS 01/05/24 01/05/24 Unknown month) subcutaneous syringe lutein 20 mg tablet 20 mg PO QDD 01/05/24 01/05/24 01/04/24 melatonin 5 mg tablet 5 mg PO HS 01/05/24 01/05/24 01/04/24 metoprolol succinate 50 mg 50 mg PO AMHS 01/05/24 01/05/24 01/05/24 08:00 tablet,extended release 24 hr mirtazapine 30 mg tablet 30 mg PO HS 01/05/24 01/05/24 01/04/24 multivitamin with iron 1 tab PO QDD 01/05/24 01/05/24 01/04/24 spironolactone 25 mg tablet 12.5 mg PO Q OTHER DAY 01/05/24 01/05/24 01/04/24 torsemide 20 mg tablet 60 mg PO QAM 01/05/24 01/05/24 01/05/24 08:00 Active Medications Generic Name Dose Route Start Last Admin Trade Name Freq PRN Reason Stop Dose Admin Albuterol 3 ml 01/06/24 09:31 01/14/24 20:15 Albut/Ipratrop 3mg/0.5mg Neb 3 Ml Vial NEB 02/04/24 21:18 3 ml Q6R PRN Administration Wheezing Protocol Apixaban 2.5 mg 01/05/24 21:19 01/15/24 08:06 Apixaban 2.5 Mg Tab PO 02/04/24 21:18 2.5 mg AMHS IRMA Administration Aspirin 81 mg 01/06/24 09:00 01/15/24 08:06 Aspirin 81 Mg Ectab PO 02/05/24 08:59 81 mg QAM IRMA Administration Atorvastatin Calcium 20 mg 01/05/24 21:45 01/14/24 22:19 Atorvastatin 20 Mg Tab PO 02/04/24 21:44 20 mg HS IMRA Administration Ciprofloxacin 500 mg 01/13/24 10:30 01/15/24 08:06 Ciprofloxacin 500 Mg Tab PO 01/20/24 10:29 500 mg BID IRMA Administration Protocol Diltiazem HCl 180 mg 01/06/24 09:00 01/15/24 08:05 Diltiazem Hcl 180 Mg Capcr PO 02/05/24 08:59 180 mg QAM IRMA Administration Escitalopram Oxalate 20 mg 01/06/24 09:00 01/15/24 08:05 Escitalopram Oxalate 20 Mg Tab PO 02/05/24 08:59 20 mg QAM IRMA Administration Fluticasone/Vilanterol 1 puffs 01/05/24 22:00 01/15/24 10:55 Fluticasone/Vilanterol 200/25mcg 14 Puffs/Inhaler INH 02/04/24 21:59 Not Given BID IRMA Guaifenesin 600 mg 01/05/24 22:00 01/15/24 08:05 Guaifenesin 600 Mg Tabcr PO 02/04/24 21:59 600 mg BID IRMA Administration Insulin Aspart 0 units 01/06/24 11:30 01/15/24 08:11 Insulin Aspart Per Unit Charge SC 02/05/24 11:29 3 units ACHS IRMA Administration Lactobacillus Acidophilus 1,250 mg 01/05/24 21:19 01/15/24 08:04 Advanced Probiotic 625 Mg Capsule PO 02/04/24 21:18 1,250 mg DAILY IRMA Administration Levothyroxine Sodium 75 mcg 01/06/24 06:30 01/15/24 06:28 Levothyroxine Sodium 75 Mcg Tablet PO 02/05/24 06:29 75 mcg DAILYBB IRMA Administration Magnesium Hydroxide 30 ml 01/05/24 21:19 01/08/24 08:46 Magnesium Hydroxide Susp 30 Ml Udc PO 02/04/24 21:18 30 ml Q12H PRN Administration Constipation Metoprolol Succinate 50 mg 01/05/24 21:45 01/15/24 08:05 Metoprolol Succ 50mg Ext Rel Tab PO 02/04/24 21:44 50 mg AMHS IRMA Administration Mirtazapine 30 mg 01/05/24 22:00 01/14/24 22:19 Mirtazapine Tab 15 Mg Tab PO 02/04/24 21:59 30 mg HS IRMA Administration Multivitamins/Minerals 1 tab 01/06/24 16:30 01/14/24 18:34 Cerovite Adv Formula Tab PO 02/05/24 16:29 1 tab QDD IRMA Administration Olanzapine 5 mg 01/05/24 21:45 01/06/24 00:11 Olanzapine 5 Mg Tablet PO 02/04/24 21:44 Not Given HS IRMA Tamsulosin HCl 0.4 mg 01/06/24 09:00 12/07/24 08:06 Tamsulosin Hcl 0.4 Mg Cap PO 02/05/24 08:59 0.4 mg QAM IRMA Administration (2) Acute asthma exacerbation Asthma persistence: unspecified Asthma severity: unspecified severity Qualified Code(s): J45.901 - Unspecified asthma with (acute) exacerbation
[2024-01-15 07:17] LABS: Hematocrit (blood only) 38.8 % (42.0-52.0); Hemoglobin 12.3 g/dl (14.0-18.0); Mean Corpuscular Hemoglobin 29.3 pg (25.0-34.0); Mean Corpuscular Hgb Conc 31.7 g/dL (32.0-36.0); Mean Corpuscular Volume 92.4 fL (80.0-100.0); Mean Platelet Volume 10.8 fL (9.4-12.4); Platelet Count 158 K/uL (130-400); RDW Coefficient of Variation 15.1 % (11.5-14.5); RDW Standard Deviation 50.4 fL (36.4-46.3); White Blood Count 14.67 K/ul (4.8-10.8)
[2024-01-15 07:42] LABS: BUN Creatinine Ratio 23.6 (10-20); Calcium 8.9 mg/dl (8.6-10.3); Potassium 4.3 mmol/L (3.5-5.1)
[2024-01-16 07:58] LABS: Hematocrit (blood only) 37.4 % (42.0-52.0); Hemoglobin 11.8 g/dl (14.0-18.0); Mean Corpuscular Hemoglobin 29.4 pg (25.0-34.0); Mean Corpuscular Hgb Conc 31.6 g/dL (32.0-36.0); Mean Platelet Volume 11.4 fL (9.4-12.4); Platelet Count 155 K/uL (130-400); RDW Coefficient of Variation 15.1 % (11.5-14.5); RDW Standard Deviation 50.8 fL (36.4-46.3); Red Blood Count 4.02 M/uL (4.70-6.10); White Blood Count 12.51 K/ul (4.8-10.8)
[2024-01-16 08:22] LABS: BUN Creatinine Ratio 26.7 (10-20); Calcium 8.8 mg/dl (8.6-10.3); Creatinine Clr Calc Pharmacy 74.2 ml/min; Phosphorus 2.5 mg/dl (2.5-4.9); Potassium 4.4 mmol/L (3.5-5.1)
--- NOTE | 2024-01-16 10:37 | Hospitalist Progress Note ---
Date of Service January 16, 2024 Assessment & Plan (1) COVID-19: (2) Acute asthma exacerbation: (3) Acute on chronic respiratory failure with hypoxia and hypercapnia: Plan Mr. May is an 83-year-old male with past medical history of recurrent aspiration pneumonitis with history of esophageal achalasia, restrictive lung disease, bronchiectasis, RUDY on BiPAP, asthma, tachybradycardia syndrome status post pacemaker, chronic diastolic heart failure, CKD, atrial fibrillation, a chalasia, BPH, history of prostatic cancer, depression, generalized anxiety disorder, PTSD, gout, hyperlipidemia and hypothyroidism who presents to the hospital with progressive shortness of breath. Patient treated for COVID and possible aspiration pneumonia. Patient doing well overall concern noted given 01/09 sputum with pseudomonas. Cefepime transitioned to course of ciprofloxacin for pseudomonas in sputum Patient with wound vac. Placement pending proper wound vac supplies to arrive to facility Patient medically stable for discharge. #COVID-19 infection #Acute on chronic hypoxic respiratory failure improving Asthma exacerbation Possible aspiration pneumonia, Sputum with pseudomonas Obstructive Sleep Apnea Past medical history of recurrent aspiration pneumonitis, restrictive lung disease, bronchiectasis, asthma; presents with shortness of breath and fatigue. Respiratory viral panel positive for COVID-19 infection Chest x-ray showed "shallow inspiration with stable bibasilar atelectasis and vascular congestion" BNP mildly elevated to 94 CT chest concerning for a left greater than right bibasilar airspace opacities, suggestive of an atypical infection or aspiration MRSA nares positive VBG noting chronic hypercapnia Nebs prn flutter valve for airway clearance therapy sputum cx:pseudomonas Pulmonology was consulted, appreciate recs. Recommended or stated the following: - transitioned IV Solu-Medrol to p.o. prednisone - continue Breo and as needed bronchodilators -Transition IV Zosyn and doxycycline to p.o. Augmentin for 5 days completed that course -nightly CPAP at 10 cm of water. Follow-up with the [facility] sleep clinic in the outpatient setting. improving, no longer on BiPAP per pulmonology, currently back to baseline transitioned to 7 day course of ciprofloxacin for pseudomonas in sputum EOT 01/18 #Leukocytosis *resolving treating pseudomonas with cipro no increased O2 requirment Wound vac potentially source for transient leukocytosis as well afebrile continue to trend CBC #Acute Sinusitis Noted on head CT completed augmentin #Acute metabolic/toxic encephalopathy at baseline Patient with episode of altered mental status overnight on 01/05/2024 Possibly in setting of noted infections above UA currently negative Per pulmonology less likely related to chronic hypercapnia Delirium precautions. Frequent reorientation, avoid sedating medications as able patient and family concerned about home Remeron that was held in setting of acute infection. Discussion of risks of increasing confusion or delirium, etc while hospitalized, patient and son agreeable to risks and would like it resumed. Remeron resumed on 01/07/2024. Improved and back to baseline #Acute Kidney Injury on chronic Kidney Disease *resolved Creatinine of 1.39 on admission, went up to 1.41 Has since downtrended Avoid nephrotoxic agents as able Continue to monitor with daily labs Currently wnl #Hypermagnesemia Mag noted to be slightly elevated Discontinued home mag supplement Continue to monitor Resolved #Chronic anemia hgb 13 , down to 11 Consider further workup if downtrending with iron panel, folate and b12 Continue to monitor with daily labs Currently in 12-13 range #Wound on left leg with theraskin in place Pt presented with a wound vac on LLE continued wound VAC until 01/09 when evaluated by wound care Outpt wound clinic contacted by wound care nurse, orders placed Wound care replaced wound vac to be changed every MWF Other chronic conditions: History of achalasia status post balloon dilationreports that he tolerates regular food. Will consider swallow evaluation if clinical suspicion of aspiration is high with a CT chest. Tachybradycardia syndrome status post pacemaker, atrial fibrillationcontinue on diltiazem, metoprolol, Eliquis Chronic diastolic heart failureappears compensated, continue on metoprolol, spironolactone, torsemide CADcontinue on aspirin and Lipitor Hypothyroidismcontinue on levothyroxine OSAcontinue CPAP qhs per pulm recs Diet: DMII, HH, [id number], easy to chew DVT prophylaxis: Eliquis Dispo: PT/OT recommending rehab, dispo likely Wednesday Admission and Anticipated Discharge Date Admission Date: January 05, 2024 Subjective NAEO awaiting dispo Visited by and son no acute concerns this am Physical Exam Constitutional: WD/WN, vitals as above Respiratory: normal respiratory effort, lungs clear to auscultation Cardiovascular: RRR, no murmur, no edema Gastrointestinal (Abdomen): normal bowel sounds, soft, nontender, no hepatosplenomegaly Results & Data Results & Data Vital Signs (Past 12 Hours) Vital Signs Temp Pulse Pulse Resp BP BP Pulse Ox 01/16/24 08:03 01/16/24 07:26 36.7 C 80 18 126/78 96 01/16/24 03:32 75 20 98 01/16/24 03:11 36.3 C L 84 20 137/78 97 01/16/24 03:03 72 01/15/24 23:55 36.4 C L 81 18 124/70 97 01/15/24 23:39 O2 Del Method O2 Flow Rate 01/16/24 08:03 Nasal Cannula 2 01/16/24 07:26 Nasal Cannula 2 01/16/24 03:32 2 01/16/24 03:11 CPAP 01/16/24 03:03 01/15/24 23:55 Nasal Cannula 2 01/15/24 23:39 Nasal Cannula Laboratory Results Short CBC 01/16/24 Range/Units 07:30 WBC 12.51 H (4.8-10.8) K/ul Hgb 11.8 L (14.0-18.0) g/dl Hct 37.4 L (42.0-52.0) % Plt Count 155 (130-400) K/uL BMP 01/16/24 07:30 Sodium 138 Potassium 4.4 Chloride 102 Carbon Dioxide 33 H BUN 24 H Creatinine 0.90 Glucose 98 Calcium 8.8 Medications Administered Home Medications Medication Instructions Recorded Confirmed Last Taken albuterol sulfate 90 mcg/actuation 2 puff inhalation .EVERY 4-6 HOURS 08/03/22 01/05/24 01/05/24 aerosol inhaler PRN Shortness Of Breath Or Wheezing aspirin 81 mg capsule 81 mg PO QAM 08/03/22 01/05/24 01/05/24 08:00 atorvastatin 20 mg tablet (Lipitor) 20 mg PO HS 08/03/22 01/05/24 01/04/24 calcium 600 mg (as 1 tab PO QDD 08/03/22 01/05/24 01/05/24 carbonate)-vitamin D3 10 mcg (400 unit) tablet (Calcium 600 + D(3)) cyclosporine 0.05 % eye drops in a 1 drp ophthalmic (eye) Q12H Dry 08/03/22 01/05/24 01/05/24 dropperette (Restasis) Eye(S) am diltiazem HCl 180 mg 180 mg PO QAM 08/03/22 01/05/24 01/05/24 08:00 capsule,extended release 24 hr guaifenesin 600 mg tablet, 600 mg PO BID PRN cough or 08/03/22 01/05/24 08/19/22 04:00 extended release 12 hr (Mucinex) congestion levothyroxine 75 mcg tablet 75 mcg PO QAM 08/03/22 01/05/24 01/05/24 07:00 olanzapine 5 mg tablet (Zyprexa) 5 mg PO HS 08/03/22 01/05/24 01/04/24 tamsulosin 0.4 mg capsule 0.4 mg PO QAM 08/03/22 01/05/24 01/05/24 08:00 magnesium oxide 400 mg PO HS 01/03/23 01/05/24 01/04/24 acetaminophen 325 mg tablet 650 mg PO Q4 PRN Fever Or Pain 01/05/24 01/05/24 Unknown albuterol sulfate 2.5 mg/3 mL 2.5 mg continuous nebulization Q4 01/05/24 01/05/24 01/05/24 (0.083 %) solution for nebulization PRN Shortness Of Breath Or Wheezing apixaban 2.5 mg tablet (Eliquis) 2.5 mg PO AMHS 01/05/24 01/05/24 01/05/24 08:00 cefadroxil 500 mg capsule 500 mg PO Q12 01/05/24 01/05/24 01/05/24 08:00 escitalopram oxalate 20 mg tablet 20 mg PO QAM 01/05/24 01/05/24 01/05/24 08:00 fluticasone 250 mcg-salmeterol 50 1 ea inhalation BID 01/05/24 01/05/24 01/05/24 mcg/dose blistr powdr for am inhalation [id number] C-Mn 500 1 cap PO QDD 01/05/24 01/05/24 01/04/24 mg-400 mg capsule leuprolide (3 month) 22.5 mg (3 22.5 mg subcut .EVERY 3 MONTHS 01/05/24 01/05/24 Unknown month) subcutaneous syringe lutein 20 mg tablet 20 mg PO QDD 01/05/24 01/05/24 01/04/24 melatonin 5 mg tablet 5 mg PO HS 01/05/24 01/05/24 01/04/24 metoprolol succinate 50 mg 50 mg PO AMHS 01/05/24 01/05/24 01/05/24 08:00 tablet,extended release 24 hr mirtazapine 30 mg tablet 30 mg PO HS 01/05/24 01/05/24 01/04/24 multivitamin with iron 1 tab PO QDD 01/05/24 01/05/24 01/04/24 spironolactone 25 mg tablet 12.5 mg PO Q OTHER DAY 01/05/24 01/05/24 01/04/24 torsemide 20 mg tablet 60 mg PO QAM 01/05/24 01/05/24 01/05/24 08:00 Active Medications Generic Name Dose Route Start Last Admin Trade Name Freq PRN Reason Stop Dose Admin Albuterol 3 ml 01/06/24 09:31 01/16/24 12:53 Albut/Ipratrop 3mg/0.5mg Neb 3 Ml Vial NEB 02/04/24 21:18 3 ml Q6R PRN Administration Wheezing Protocol Apixaban 2.5 mg 01/05/24 21:19 01/16/24 08:12 Apixaban 2.5 Mg Tab PO 02/04/24 21:18 2.5 mg AMHS IRMA Administration Aspirin 81 mg 01/06/24 09:00 01/16/24 08:11 Aspirin 81 Mg Ectab PO 02/05/24 08:59 81 mg QAM IRMA Administration Atorvastatin Calcium 20 mg 01/05/24 21:45 01/15/24 22:24 Atorvastatin 20 Mg Tab PO 02/04/24 21:44 20 mg HS IRMA Administration Ciprofloxacin 500 mg 01/13/24 10:30 01/16/24 08:12 Ciprofloxacin 500 Mg Tab PO 01/20/24 10:29 500 mg BID IRMA Administration Protocol Diltiazem HCl 180 mg 01/06/24 09:00 01/16/24 08:12 Diltiazem Hcl 180 Mg Capcr PO 02/05/24 08:59 180 mg QAM IRMA Administration Escitalopram Oxalate 20 mg 01/06/24 09:00 01/16/24 08:12 Escitalopram Oxalate 20 Mg Tab PO 02/05/24 08:59 20 mg QAM IRMA Administration Fluticasone/Vilanterol 1 puffs 01/05/24 22:00 01/16/24 08:08 Fluticasone/Vilanterol 200/25mcg 14 Puffs/Inhaler INH 02/04/24 21:59 1 puffs BID IRMA Administration Guaifenesin 600 mg 01/05/24 22:00 01/16/24 08:12 Guaifenesin 600 Mg Tabcr PO 02/04/24 21:59 600 mg BID IRMA Administration Insulin Aspart 0 units 01/06/24 11:30 01/16/24 12:13 Insulin Aspart Per Unit Charge SC 02/05/24 11:29 Not Given ACHS IRMA Lactobacillus Acidophilus 1,250 mg 01/05/24 21:19 01/16/24 08:07 Advanced Probiotic 625 Mg Capsule PO 02/04/24 21:18 1,250 mg DAILY IRMA Administration Levothyroxine Sodium 75 mcg 01/06/24 06:30 01/16/24 06:08 Levothyroxine Sodium 75 Mcg Tablet PO 02/05/24 06:29 75 mcg DAILYBB IRMA Administration Magnesium Hydroxide 30 ml 01/05/24 21:19 01/08/24 08:46 Magnesium Hydroxide Susp 30 Ml Udc PO 02/04/24 21:18 30 ml Q12H PRN Administration Constipation Metoprolol Succinate 50 mg 01/05/24 21:45 01/16/24 08:12 Metoprolol Succ 50mg Ext Rel Tab PO 02/04/24 21:44 50 mg AMHS IRMA Administration Mirtazapine 30 mg 01/05/24 22:00 01/15/24 22:22 Mirtazapine Tab 15 Mg Tab PO 02/04/24 21:59 30 mg HS IRMA Administration Multivitamins/Minerals 1 tab 01/06/24 16:30 01/15/24 17:51 Cerovite Adv Formula Tab PO 02/05/24 16:29 1 tab QDD IRMA Administration Olanzapine 5 mg 01/05/24 21:45 01/06/24 00:11 Olanzapine 5 Mg Tablet PO 02/04/24 21:44 Not Given HS IRMA Tamsulosin HCl 0.4 mg 01/06/24 09:00 01/16/24 08:12 Tamsulosin Hcl 0.4 Mg Cap PO 02/05/24 08:59 0.4 mg QAM IRMA Administration (2) Acute asthma exacerbation Asthma persistence: unspecified Asthma severity: unspecified severity Qualified Code(s): J45.901 - Unspecified asthma with (acute) exacerbation
[2024-01-17] MEDS ORDERED: ARTIFICIAL TEARS OP PRN (08:17)
[2024-01-17] MEDS: TORSEMIDE 20 MG TAB PO SCH (09:01)
--- NOTE | 2024-01-17 14:17 | Hospitalist Progress Note ---
Date of Service January 17, 2024 Assessment & Plan (1) COVID-19: (2) Acute asthma exacerbation: (3) Acute on chronic respiratory failure with hypoxia and hypercapnia: Plan Mr. May is an 83-year-old male with past medical history of recurrent aspiration pneumonitis with history of esophageal achalasia, restrictive lung disease, bronchiectasis, RUDY on BiPAP, asthma, tachybradycardia syndrome status post pacemaker, chronic diastolic heart failure, CKD, atrial fibrillation, a chalasia, BPH, history of prostatic cancer, depression, generalized anxiety disorder, PTSD, gout, hyperlipidemia and hypothyroidism who presents to the hospital with progressive shortness of breath. Patient treated for COVID and possible aspiration pneumonia. Patient doing well overall concern noted given 01/09 sputum with pseudomonas. Cefepime transitioned to course of ciprofloxacin for pseudomonas in sputum Patient with wound vac. Placement pending proper wound vac supplies to arrive to facility Patient medically stable for discharge, however, wound care supplies will not be at [facility] until tomorrow. #COVID-19 infection #Acute on chronic hypoxic respiratory failure improving Asthma exacerbation Possible aspiration pneumonia, Sputum with pseudomonas Obstructive Sleep Apnea Past medical history of recurrent aspiration pneumonitis, restrictive lung disease, bronchiectasis, asthma; presents with shortness of breath and fatigue. Respiratory viral panel positive for COVID-19 infection Chest x-ray showed "shallow inspiration with stable bibasilar atelectasis and vascular congestion" BNP mildly elevated to 94 CT chest concerning for a left greater than right bibasilar airspace opacities, suggestive of an atypical infection or aspiration MRSA nares positive VBG noting chronic hypercapnia Nebs prn flutter valve for airway clearance therapy sputum cx:pseudomonas Pulmonology was consulted, appreciate recs. Recommended or stated the following: - transitioned IV Solu-Medrol to p.o. prednisone - continue Breo and as needed bronchodilators -Transition IV Zosyn and doxycycline to p.o. Augmentin for 5 days completed that course -nightly CPAP at 10 cm of water. Follow-up with the [facility] sleep clinic in the outpatient setting. improving, no longer on BiPAP per pulmonology, currently back to baseline transitioned to 7 day course of ciprofloxacin for pseudomonas in sputum EOT 01/18 #Leukocytosis *resolving treating pseudomonas with cipro no increased O2 requirment Wound vac potentially source for transient leukocytosis as well afebrile continue to trend CBC #Acute Sinusitis Noted on head CT completed augmentin #Acute metabolic/toxic encephalopathy at baseline Patient with episode of altered mental status overnight on 01/05/2024 Possibly in setting of noted infections above UA currently negative Per pulmonology less likely related to chronic hypercapnia Delirium precautions. Frequent reorientation, avoid sedating medications as able patient and family concerned about home Remeron that was held in setting of acute infection. Discussion of risks of increasing confusion or delirium, etc while hospitalized, patient and son agreeable to risks and would like it resumed. Remeron resumed on 01/07/2024. Improved and back to baseline #Acute Kidney Injury on chronic Kidney Disease *resolved Creatinine of 1.39 on admission, went up to 1.41 Has since downtrended Avoid nephrotoxic agents as able Continue to monitor with daily labs Currently wnl #Hypermagnesemia Mag noted to be slightly elevated Discontinued home mag supplement Continue to monitor Resolved #Chronic anemia hgb 13 , down to 11 Consider further workup if downtrending with iron panel, folate and b12 Continue to monitor with daily labs Currently in 12-13 range #Wound on left leg with theraskin in place Pt presented with a wound vac on LLE continued wound VAC until 01/09 when evaluated by wound care Outpt wound clinic contacted by wound care nurse, orders placed Wound care replaced wound vac to be changed every MWF Other chronic conditions: History of achalasia status post balloon dilationreports that he tolerates regular food. Will consider swallow evaluation if clinical suspicion of aspiration is high with a CT chest. Tachybradycardia syndrome status post pacemaker, atrial fibrillationcontinue on diltiazem, metoprolol, Eliquis Chronic diastolic heart failureappears compensated, continue on metoprolol, spironolactone, torsemide CADcontinue on aspirin and Lipitor Hypothyroidismcontinue on levothyroxine OSAcontinue CPAP qhs per pulm recs Diet: DMII, HH, [id number], easy to chew DVT prophylaxis: Eliquis Dispo: discharge tomorrow Admission and Anticipated Discharge Date Admission Date: January 05, 2024 Subjective NAEO Physical Exam Constitutional: WD/WN, vitals as above Respiratory: normal respiratory effort, lungs clear to auscultation (on home o2 requirement) Cardiovascular: RRR, no murmur, no edema Gastrointestinal (Abdomen): normal bowel sounds, soft, nontender, no hepatosplenomegaly Results & Data Results & Data Vital Signs (Past 12 Hours) Vital Signs Temp Pulse Pulse Resp BP Pulse Ox O2 Del Method 01/17/24 12:24 81 01/17/24 12:24 Nasal Cannula 01/17/24 08:04 36.5 C 85 20 118/68 95 Nasal Cannula 01/17/24 04:03 36.8 C 91 H 22 165/90 H 91 BiPAP 01/17/24 03:19 71 19 98 O2 Flow Rate 01/17/24 12:24 01/17/24 12:24 2 01/17/24 08:04 2 01/17/24 04:03 01/17/24 03:19 2 Medications Administered Home Medications Medication Instructions Recorded Confirmed Last Taken albuterol sulfate 90 mcg/actuation 2 puff inhalation .EVERY 4-6 HOURS 08/03/22 01/05/24 01/05/24 aerosol inhaler PRN Shortness Of Breath Or Wheezing aspirin 81 mg capsule 81 mg PO QAM 08/03/22 01/05/24 01/05/24 08:00 atorvastatin 20 mg tablet (Lipitor) 20 mg PO HS 08/03/22 01/05/24 01/04/24 calcium 600 mg (as 1 tab PO QDD 08/03/22 01/05/24 01/05/24 carbonate)-vitamin D3 10 mcg (400 unit) tablet (Calcium 600 + D(3)) cyclosporine 0.05 % eye drops in a 1 drp ophthalmic (eye) Q12H Dry 08/03/22 01/05/24 01/05/24 dropperette (Restasis) Eye(S) am diltiazem HCl 180 mg 180 mg PO QAM 08/03/22 01/05/24 01/05/24 08:00 capsule,extended release 24 hr guaifenesin 600 mg tablet, 600 mg PO BID PRN cough or 08/03/22 01/05/24 08/19/22 04:00 extended release 12 hr (Mucinex) congestion levothyroxine 75 mcg tablet 75 mcg PO QAM 08/03/22 01/05/24 01/05/24 07:00 olanzapine 5 mg tablet (Zyprexa) 5 mg PO HS 08/03/22 01/05/2424 tamsulosin 0.4 mg capsule 0.4 mg PO QAM 08/03/22 01/05/24 01/05/24 08:00 magnesium oxide 400 mg PO HS 01/03/23 01/05/24 01/04/24 acetaminophen 325 mg tablet 650 mg PO Q4 PRN Fever Or Pain 01/05/24 01/05/24 Unknown albuterol sulfate 2.5 mg/3 mL 2.5 mg continuous nebulization Q4 01/05/24 01/05/24 01/05/24 (0.083 %) solution for nebulization PRN Shortness Of Breath Or Wheezing apixaban 2.5 mg tablet (Eliquis) 2.5 mg PO AMHS 01/05/24 01/05/24 01/05/24 08:00 cefadroxil 500 mg capsule 500 mg PO Q12 01/05/24 01/05/24 01/05/24 08:00 escitalopram oxalate 20 mg tablet 20 mg PO QAM 01/05/24 01/05/24 01/05/24 08:00 fluticasone 250 mcg-salmeterol 50 1 ea inhalation BID 01/05/24 01/05/24 01/05/24 mcg/dose blistr powdr for am inhalation [id number]-[id number] C-Mn 500 1 cap PO QDD 01/05/24 01/05/24 01/04/24 mg-400 mg capsule leuprolide (3 month) 22.5 mg (3 22.5 mg subcut .EVERY 3 MONTHS 01/05/24 01/05/24 Unknown month) subcutaneous syringe lutein 20 mg tablet 20 mg PO QDD 01/05/24 01/05/24 01/04/24 melatonin 5 mg tablet 5 mg PO HS 01/05/24 01/05/24 01/04/24 metoprolol succinate 50 mg 50 mg PO AMHS 01/05/24 01/05/24 01/05/24 08:00 tablet,extended release 24 hr mirtazapine 30 mg tablet 30 mg PO HS 01/05/24 01/05/24 01/04/24 multivitamin with iron 1 tab PO QDD 01/05/24 01/05/24 01/04/24 spironolactone 25 mg tablet 12.5 mg PO Q OTHER DAY 01/05/24 01/05/24 01/04/24 torsemide 20 mg tablet 60 mg PO QAM 01/05/24 01/05/24 01/05/24 08:00 Active Medications Generic Name Dose Route Start Last Admin Trade Name Freq PRN Reason Stop Dose Admin Albuterol 3 ml 01/06/24 09:31 01/16/24 20:53 Albut/Ipratrop 3mg/0.5mg Neb 3 Ml Vial NEB 02/04/24 21:18 3 ml Q6R PRN Administration Wheezing Protocol Apixaban 2.5 mg 01/05/24 21:19 01/17/24 08:56 Apixaban 2.5 Mg Tab PO 02/04/24 21:18 2.5 mg AMHS IRMA Administration Aspirin 81 mg 01/06/24 09:00 01/17/24 08:57 Aspirin 81 Mg Ectab PO 02/05/24 08:59 81 mg QAM IRMA Administration Atorvastatin Calcium 20 mg 01/05/24 21:45 01/16/24 22:26 Atorvastatin 20 Mg Tab PO 02/04/24 21:44 20 mg HS IRMA Administration Ciprofloxacin 500 mg 01/13/24 10:30 01/17/24 08:56 Ciprofloxacin 500 Mg Tab PO 01/20/24 10:29 500 mg BID IRMA Administration Protocol Diltiazem HCl 180 mg 01/06/24 09:00 01/17/24 08:56 Diltiazem Hcl 180 Mg Capcr PO 02/05/24 08:59 180 mg QAM IRMA Administration Escitalopram Oxalate 20 mg 01/06/24 09:00 01/17/24 08:53 Escitalopram Oxalate 20 Mg Tab PO 02/05/24 08:59 20 mg QAM IRMA Administration Fluticasone/Vilanterol 1 puffs 01/05/24 22:00 01/17/24 08:58 Fluticasone/Vilanterol 200/25mcg 14 Puffs/Inhaler INH 02/04/24 21:59 1 puffs BID IRMA Administration Guaifenesin 600 mg 01/05/24 22:00 01/17/24 08:53 Guaifenesin 600 Mg Tabcr PO 02/04/24 21:59 600 mg BID IRMA Administration Insulin Aspart 0 units 01/06/24 11:30 01/17/24 11:46 Insulin Aspart Per Unit Charge SC 02/05/24 11:29 2 units ACHS IRMA Administration Lactobacillus Acidophilus 1,250 mg 01/05/24 21:19 01/17/24 08:57 Advanced Probiotic 625 Mg Capsule PO 02/04/24 21:18 1,250 mg DAILY IRMA Administration Levothyroxine Sodium 75 mcg 01/06/24 06:30 01/17/24 06:19 Levothyroxine Sodium 75 Mcg Tablet PO 02/05/24 06:29 75 mcg DAILYBB IRMA Administration Magnesium Hydroxide 30 ml 01/05/24 21:19 01/08/24 08:46 Magnesium Hydroxide Susp 30 Ml Udc PO 02/04/24 21:18 30 ml Q12H PRN Administration Constipation Metoprolol Succinate 50 mg 01/05/24 21:45 01/17/24 08:56 Metoprolol Succ 50mg Ext Rel Tab PO 02/04/24 21:44 50 mg AMHS IRMA Administration Mirtazapine 30 mg 01/05/24 22:00 01/16/24 22:26 Mirtazapine Tab 15 Mg Tab PO 02/04/24 21:59 30 mg HS IRMA Administration Multivitamins/Minerals 1 tab 01/06/24 16:30 01/16/24 17:50 Cerovite Adv Formula Tab PO 02/05/24 16:29 1 tab QDD IRMA Administration Olanzapine 5 mg 01/05/24 21:45 01/06/24 00:11 Olanzapine 5 Mg Tablet PO 02/04/24 21:44 Not Given HS IRMA Tamsulosin HCl 0.4 mg 01/06/24 09:00 01/17/24 08:55 Tamsulosin Hcl 0.4 Mg Cap PO 02/05/24 08:59 0.4 mg QAM IRMA Administration Torsemide 60 mg 01/17/24 09:00 01/17/24 09:01 Torsemide 20 Mg Tab PO 02/16/24 08:59 60 mg QAM IRMA Administration (2) Acute asthma exacerbation Asthma severity: unspecified severity Asthma persistence: unspecified Qualified Code(s): J45.901 - Unspecified asthma with (acute) exacerbation
[2024-01-17] MEDS: CALCIUM 600MG + VIT D 400 IU TAB PO SCH (17:20)
[2024-01-18 11:36] VITALS: RESP 19; TEMP 98.1; O2SAT 96
--- NOTE | 2024-01-18 13:33 | Discharge Summary ---
Discharge Summary Date of Service January 18, 2024 Principal Dx & Hospital Course #1 = Principal Diagnosis (1) COVID-19: (2) Acute asthma exacerbation: (3) Acute on chronic respiratory failure with hypoxia and hypercapnia: Plan Mr. May is an 83-year-old male with past medical history of recurrent aspiration pneumonitis with history of esophageal achalasia, restrictive lung disease, bronchiectasis, RUDY on BiPAP, asthma, tachybradycardia syndrome status post pacemaker, chronic diastolic heart failure, CKD, atrial fibrillation, achalasia, BPH, history of prostatic cancer, depression, generalized anxiety disorder, PTSD, gout, hyperlipidemia and hypothyroidism who presents to the hospital with progressive shortness of breath. Patient treated for COVID and possible aspiration pneumonia. Patient doing well overall concern noted given 01/09 sputum with pseudomonas. Cefepime transitioned to course of ciprofloxacin for pseudomonas in sputum EOT 01/18 Patient with wound vac. Placement pending proper wound vac supplies to arrive to facility On day of discharge, patient was doing well and reported feeling excited to be dischagred to [facility]. No new complaints on and on baseline oxygen. #COVID-19 infection #Acute on chronic hypoxic respiratory failure improving Asthma exacerbation Possible aspiration pneumonia, Sputum with pseudomonas Obstructive Sleep Apnea Past medical history of recurrent aspiration pneumonitis, restrictive lung disease, bronchiectasis, asthma; presents with shortness of breath and fatigue. Respiratory viral panel positive for COVID-19 infection Chest x-ray showed "shallow inspiration with stable bibasilar atelectasis and vascular congestion" BNP mildly elevated to 94 CT chest concerning for a left greater than right bibasilar airspace opacities, suggestive of an atypical infection or aspiration MRSA nares positive VBG noting chronic hypercapnia Nebs prn flutter valve for airway clearance therapy sputum cx:pseudomonas Pulmonology was consulted, appreciate recs. Recommended or stated the following: - transitioned IV Solu-Medrol to p.o. prednisone - continue Breo and as needed bronchodilators -Transition IV Zosyn and doxycycline to p.o. Augmentin for 5 days completed that course -nightly CPAP at 10 cm of water. Follow-up with the [facility] sleep clinic in the outpatient setting. improving, no longer on BiPAP per pulmonology, currently back to baseline transitioned to 7 day course of ciprofloxacin for pseudomonas in sputum EOT 12/11 #Leukocytosis *resolving treating pseudomonas with cipro no increased O2 requirment Wound vac potentially source for transient leukocytosis as well afebrile continue to trend CBC #Acute Sinusitis Noted on head CT completed augmentin #Acute metabolic/toxic encephalopathy at baseline Patient with episode of altered mental status overnight on 01/05/2024 Possibly in setting of noted infections above UA currently negative Per pulmonology less likely related to chronic hypercapnia Delirium precautions. Frequent reorientation, avoid sedating medications as able patient and family concerned about home Remeron that was held in setting of acute infection. Discussion of risks of increasing confusion or delirium, etc while hospitalized, patient and son agreeable to risks and would like it r esumed. Remeron resumed on 01/07/2024. Improved and back to baseline #Acute Kidney Injury on chronic Kidney Disease *resolved Creatinine of 1.39 on admission, went up to 1.41 Has since downtrended Avoid nephrotoxic agents as able Continue to monitor with daily labs Currently wnl #Hypermagnesemia Mag noted to be slightly elevated Discontinued home mag supplement Continue to monitor Resolved #Chronic anemia hgb 13 , down to 11 Consider further workup if downtrending with iron panel, folate and b12 Continue to monitor with daily labs Currently in 12-13 range #Wound on left leg with theraskin in place Pt presented with a wound vac on LLE continued wound VAC until 01/09 when evaluated by wound care Outpt wound clinic contacted by wound care nurse, orders placed Wound care replaced wound vac to be changed every MWF Other chronic conditions: History of achalasia status post balloon dilationreports that he tolerates regular food. Will consider swallow evaluation if clinical suspicion of aspiration is high with a CT chest. Tachybradycardia syndrome status post pacemaker, atrial fibrillationcontinue on diltiazem, metoprolol, Eliquis Chronic diastolic heart failureappears compensated, continue on metoprolol, spironolactone, torsemide CADcontinue on aspirin and Lipitor Hypothyroidismcontinue on levothyroxine OSAcontinue CPAP qhs per pulm recs Notes For Next Care Provider Medication Changes From Visit Ciprofloxacin 500mg BID x 3 more doses Admission HPI Per Admitting Provider Cristhian "Mariusz May is an 83y/o M with PMHx significant for gout, dyslipidemia, acquired hypothyroidism, pancreatic cyst, chronic hypoxic respiratory failure with hypercapnia [on 2L via NC at baseline], restrictive lung disease, bronchiectasis, chronic frontal sinusitis, RUDY on BiPAP, mild persistent asthma, interstitial pulmonary disease, tacky-noni syndrome s/p pacemaker placement, CKD stage III [baseline Cr ~1.4-1.7], chronic diastolic congestive heart failure, HTN, permanent atrial fibrillation, CAD, achalasia, BPH, history of prostate cancer, calcium pyrophosphate deposition disease, chronic back pain, TIBURCIO/PTSD and schizophrenia who presented to the ED for evaluation secondary to worsening SOB. History obtained from the patient, family at bedside ( + son-in-law) and associated chart review. Patient with worsening SOB over the past week. He has also noticed increased sin us drainage in addition to a mildly productive cough of yellowish sputum production. Denies any hemoptysis. No reported fevers, body aches or chills that the patient or his family can recall. He currently lives at home with his in a one-story home. He ambulates with a walker or cane at baseline however he has not been able to ambulate far over the past couple of days secondary to his worsening respiratory status. His SOB significantly worsens with activity/exertion. His reports that his oxygen saturation was around 83% this morning on 2L via nasal cannula, which he wears chronically at baseline. She had increased his O2 to 4-6L with some improvement in his breathing. He he has been extremely wheezy over the past couple of days. He is currently completing a 7-day course of oral cefadroxil due to a left lower extremity posterior calf wound which is being managed by Dr. Dylan Rankin [Podiatry] at [facility]. He has a wound VAC in place over this region which is not to be removed until 01/10/2024. Patient did have a mechanical fall about a week and a half ago. He sustained bruising to his right posterior shoulder region and right hip region in addition to a right forearm skin tear. No other traumas or falls since then. CXR in the ED revealed shallow inspiration with stable basilar atelectasis and vascular congestion. He is now s/p 40mg IV Lasix, DuoNeb x 2 and 125mg IV Solu- Medrol. Patient was saturating in the mid 90s SpO2 on 3.5L via NC at the time of our discussion in the ED. Of Note: Patient was admitted to [facility] on 01/03/23 with acute aspiration pneumonia and aspirated in the ED and was in atrial fibrillation with RVR on arrival. He was intubated and was transferred to [facility] for further evaluation and for possible myotomy/pneumatic dilation. Chest CT at [facility] showed food throughout the esophagus with compression of left atrium. He underwent bronchoscopy that was positive for MRSA. He underwent EGD and had dilation on 01/08/23. He was extubated on 01/09/23. He was eventually discharged to [facility] on 01/15/23. Admission Exam Per Admitting Provider Constitutional: Alert oriented x 3; not in any distress. Respiratory: Bilateral wheezes throughout the lungs. Cardiovascular: Irregular, no murmur, no edema Vessels: no JVD or carotid bruit Chest: normal inspection of chest Abdomen: normal bowel sounds, soft, nontender, no hepatosplenomegaly Musculoskeletal: Wound present on left leg with wound VAC in place. Neurologic: PERRL, EOMI, accommodation nl, no face palsy, no dysarthria CN's II- XI intact bilaterally and moves all extremities Psychiatric: A+Ox3, euthymic affect Discharge Exam Constitutional WD/WN, vitals as above Respiratory normal respiratory effort, lungs clear to auscultation (on home o2 requirement) Cardiovascular RRR, no murmur, no edema Gastrointestinal (Abdomen) normal bowel sounds, soft, nontender, no hepatosplenomegaly Updated Medication List Medication Instructions Recorded Confirmed Type albuterol sulfate 90 mcg/actuation 2 puff inhalation .EVERY 4-6 HOURS 08/03/22 01/05/24 History aerosol inhaler PRN Shortness Of Breath Or Wheezing aspirin 81 mg capsule 81 mg PO QAM 08/03/22 01/05/24 History atorvastatin 20 mg tablet (Lipitor) 20 mg PO HS 08/03/22 01/05/24 History calcium 600 mg (as 1 tab PO QDD 08/03/22 01/05/24 History carbonate)-vitamin D3 10 mcg (400 unit) tablet (Calcium 600 + D(3)) cyclosporine 0.05 % eye drops in a 1 drp ophthalmic (eye) Q12H Dry 08/03/22 01/05/24 History dropperette (Restasis) Eye(S) diltiazem HCl 180 mg 180 mg PO QAM 08/03/22 01/05/24 History capsule,extended release 24 hr guaifenesin 600 mg tablet, 600 mg PO BID PRN cough or 08/03/22 01/05/24 History extended release 12 hr (Mucinex) congestion levothyroxine 75 mcg tablet 75 mcg PO QAM 08/03/22 01/05/24 History olanzapine 5 mg tablet (Zyprexa) 5 mg PO HS 08/03/22 01/05/24 History tamsulosin 0.4 mg capsule 0.4 mg PO QAM 08/03/22 01/05/24 History magnesium oxide 400 mg PO HS 01/03/23 01/05/24 History acetaminophen 325 mg tablet 650 mg PO Q4 PRN Fever Or Pain 01/05/24 01/05/24 History albuterol sulfate 2.5 mg/3 mL 2.5 mg continuous nebulization Q4 01/05/24 01/05/24 History (0.083 %) solution for nebulization PRN Shortness Of Breath Or Wheezing apixaban 2.5 mg tablet (Eliquis) 2.5 mg PO AMHS 01/05/24 01/05/24 History escitalopram oxalate 20 mg tablet 20 mg PO QAM 01/05/24 01/05/24 History fluticasone 250 mcg-salmeterol 50 1 ea inhalation BID 01/05/24 01/05/24 History mcg/dose blistr powdr for inhalation xipolfrylvo-kxwbrlxvc-zyj C-Mn 500 1 cap PO QDD 01/05/24 01/05/24 History mg-400 mg capsule leuprolide (3 month) 22.5 mg (3 22.5 mg subcut .EVERY 3 MONTHS 01/05/24 01/05/24 History month) subcutaneous syringe lutein 20 mg tablet 20 mg PO QDD 01/05/24 01/05/24 History melatonin 5 mg tablet 5 mg PO HS 01/05/24 01/05/24 History metoprolol succinate 50 mg 50 mg PO AMHS 01/05/24 01/05/24 History tablet,extended release 24 hr mirtazapine 30 mg tablet 30 mg PO HS 01/05/24 01/05/24 History multivitamin with iron 1 tab PO QDD 01/05/24 01/05/24 History spironolactone 25 mg tablet 12.5 mg PO Q OTHER DAY 01/05/24 01/05/24 History torsemide 20 mg tablet 60 mg PO QAM 01/05/24 01/05/24 History ciprofloxacin HCl 500 mg tablet 500 mg PO BID #3 tabs 01/18/24 Rx Hospital Stay Data Consultations 01/05/24 17:16 ED Decision to Admit Stat 01/06/24 08:23 Consult Pulmonology Routine Diagnostic Imagining Performed 01/05/24 18:20 CT chest diagnostic wo con Routine 01/05/24 23:17 CT angio head w con Stat CT angio neck with con Stat CT head/brain wo con Stat Pending Results Patient Have Any Pending Studies at Discharge: No Discharge Instructions Given to Patient (Per Discharging Provider) You were admitted for shortness of breath and found to have COVID pneumonia and bacterial pneumonia. You were treated with antibiotics and oral steroids with notable improvement. You will complete 1 more day (3 doses) of ciprofloxacin, your next dose is this evening Total Time Total Time Spent Total Time Spent (In Minutes): 45
[2024-01-18 13:39] VITALS: BP 118/68; PULSE 74
== END 2024-01-18 14:22 | DRG 177 ==
LOC: ED 15:17 → SUATTDRO 18:20 → 2S 18:20